=== PATIENT | female | born 1975 | race Caucasian/White ===

== ENCOUNTER → 2017-12-26 08:16 | Outpatient (CLI) | payer OTHER, SELFPAY ==
[2017-12-26 09:35] LABS: AST(SGOT) 12 U/L (15-37); Alanine Aminotransfer ALT/SGPT 18 U/L (13-56); Anion Gap 9 (5-15); BUN 11 mg/dL (7-18); BUN/Creat Ratio 19.1 RATIO (10-20); Calcium,Total 8.6 mg/dL (8.5-10.1); Chloride 101 mmol/L (98-107); Cholesterol 134 mg/dL (200); Creatinine, Serum 0.58 mg/dL (0.55-1.02); EST Glomerular Filtration Rate 123 mL/min (>60); Est Glom Filt Rate - Afr Amer 149 mL/min (>60); Glucose 149 mg/dL (74-106); High Density Lipoprotein 38 mg/dL; Potassium 3.4 mmol/L (3.5-5.1); Sodium Level 140 mmol/L (136-145); Triglycerides 257 mg/dL; Very Low Density Lipoprotein 51 mg/dL (5-40)
[2017-12-26 09:51] LABS: Hemoglobin A1c 6.7 % (4.2-6.3)
== END ==
PROVIDERS: Family Provider Family Medicine; PCP Family Medicine; Visit Provider Internal Medicine Endocrinology, Diabetes & Metabolism
DX: E11.9 Type 2 diabetes mellitus without complications (principal); E78.2 Mixed hyperlipidemia
CPT/HCPCS: 36415; 80048; 80061; 83036; 84450; 84460

== ENCOUNTER → 2018-04-12 12:58 | Outpatient (CLI) | payer OTHER, SELFPAY ==
[2018-04-12 14:28] LABS: Hemoglobin A1c 6.6 % (4.2-6.3)
[2018-04-12 14:44] LABS: AST(SGOT) 18 U/L (15-37); Alanine Aminotransfer ALT/SGPT 27 U/L (13-56); Albumin, Serum 3.9 g/dL (3.2-5.0); Alkaline Phosphatase 81 U/L (45-117); Anion Gap 14 (5-15); BUN 13 mg/dL (7-18); BUN/Creat Ratio 19.3 RATIO (10-20); Calcium,Total 9.4 mg/dL (8.5-10.1); Chloride 100 mmol/L (98-107); Creatinine, Serum 0.67 mg/dL (0.55-1.02); EST Glomerular Filtration Rate 103 mL/min (>60); Est Glom Filt Rate - Afr Amer 125 mL/min (>60); Glucose 150 mg/dL (74-106); Potassium 3.4 mmol/L (3.5-5.1); Protein, Total 7.9 g/dL (6.4-8.2); Sodium Level 140 mmol/L (136-145); Thyroid Stim Hormone (TSH) 1.99 uIU/mL (0.358-3.74)
== END ==
PROVIDERS: Family Provider Family Medicine; PCP Family Medicine; Visit Provider Internal Medicine Endocrinology, Diabetes & Metabolism
DX: E11.9 Type 2 diabetes mellitus without complications (principal); E04.8 Other specified nontoxic goiter; Z79.84 Long term (current) use of oral hypoglycemic drugs
CPT/HCPCS: 36415; 80053; 83036; 84443

== ENCOUNTER → 2018-05-08 07:49 | Outpatient (CLI) | payer OTHER, SELFPAY | PROVIDERS: Family Provider Family Medicine; PCP Family Medicine; Visit Provider Podiatrist | DX: M72.2 Plantar fascial fibromatosis (principal); M76.70 Peroneal tendinitis, unspecified leg; M76.812 Anterior tibial syndrome, left leg | CPT/HCPCS: 73718 ==

== ENCOUNTER → 2018-05-25 06:54 | Outpatient (CLI) | payer OTHER, SELFPAY ==
[2018-05-31 12:24] LABS: HPV Reflexed? NOT INDICATED
== END ==
PROVIDERS: Visit Provider Nurse Practitioner Adult Health
DX: Z01.419 Encounter for gynecological examination (general) (routine) without abnormal findings (principal)
CPT/HCPCS: 88175; G0145

== ENCOUNTER → 2018-07-03 09:18 | Outpatient (CLI) | payer OTHER, SELFPAY ==
[2018-07-03 10:22] LABS: AST(SGOT) 12 U/L (15-37); Alanine Aminotransfer ALT/SGPT 18 U/L (13-56); Anion Gap 10 (5-15); BUN 13 mg/dL (7-18); BUN/Creat Ratio 20.3 RATIO (10-20); Chloride 98 mmol/L (98-107); Creatinine, Serum 0.64 mg/dL (0.55-1.02); EST Glomerular Filtration Rate 109 mL/min (>60); Est Glom Filt Rate - Afr Amer 132 mL/min (>60); Glucose 174 mg/dL (74-106); Potassium 2.8 mmol/L (3.5-5.1); Sodium Level 139 mmol/L (136-145)
[2018-07-03 10:29] LABS: Hemoglobin A1c 6.3 % (4.2-6.3)
== END ==
PROVIDERS: Family Provider Family Medicine; PCP Family Medicine; Referring Provider Internal Medicine Endocrinology, Diabetes & Metabolism; Visit Provider Internal Medicine Endocrinology, Diabetes & Metabolism
DX: E11.9 Type 2 diabetes mellitus without complications (principal)
CPT/HCPCS: 36415; 80048; 83036; 84450; 84460

== ENCOUNTER → 2018-07-07 07:32 | Outpatient (CLI) | payer OTHER, SELFPAY ==
[2018-07-07 09:24] LABS: Anion Gap 13 (5-15); BUN 9 mg/dL (7-18); BUN/Creat Ratio 12.3 RATIO (10-20); Calcium,Total 8.8 mg/dL (8.5-10.1); Chloride 101 mmol/L (98-107); Creatinine, Serum 0.73 mg/dL (0.55-1.02); EST Glomerular Filtration Rate 93 mL/min (>60); Est Glom Filt Rate - Afr Amer 113 mL/min (>60); Glucose 193 mg/dL (74-106); Potassium 3.4 mmol/L (3.5-5.1); Sodium Level 141 mmol/L (136-145)
== END ==
PROVIDERS: Family Provider Family Medicine; PCP Family Medicine; Referring Provider Family Medicine; Visit Provider Family Medicine
DX: E87.6 Hypokalemia (principal)
CPT/HCPCS: 36415; 80048

== ENCOUNTER → 2018-07-23 16:24 | Outpatient (CLI) | payer OTHER, SELFPAY ==
[2018-07-23 17:50] LABS: Anion Gap 8 (5-15); BUN 13 mg/dL (7-18); BUN/Creat Ratio 20.4 RATIO (10-20); Calcium,Total 9.4 mg/dL (8.5-10.1); Chloride 102 mmol/L (98-107); Creatinine, Serum 0.64 mg/dL (0.55-1.02); EST Glomerular Filtration Rate 109 mL/min (>60); Est Glom Filt Rate - Afr Amer 132 mL/min (>60); Glucose 140 mg/dL (74-106); Potassium 3.7 mmol/L (3.5-5.1); Sodium Level 139 mmol/L (136-145)
== END ==
PROVIDERS: Family Provider Family Medicine; PCP Family Medicine; Referring Provider Family Medicine; Visit Provider Family Medicine
DX: E87.6 Hypokalemia (principal)
CPT/HCPCS: 36415; 80048

== ENCOUNTER 2018-09-08 20:58 | Emergency (ER) | payer OTHER, SELFPAY ==
[2018-09-08 20:59] VITALS: BP 153/87; PULSE 84; RESP 14; TEMP 35.8; O2SAT 100; BMI 40.1
[2018-09-08 21:30] LABS: Bacteria 0 SEEN /hpf (None Seen); Mucous, Urine 0 SEEN /hpf (<or=2+); Red Blood Cells-Urine 0 SEEN /hpf (0-5); White Blood Cells 0 SEEN /hpf (0-5)
[2018-09-08 21:33] LABS: Color, Urine Yellow (Yellow); Glucose, Dipstick 50 mg/dl (Normal); Ketone-Dipstick 5 mg/dl (Negative); Leukocyte Esterase-Dipstick Negative /ul (Negative); Nitrite-Dipstick Negative (Negative); Occult Blood-Urine Negative /ul (Negative); Protein-Dipstick Negative (Negative); Urine Bilirubin Dipstick Negative (Negative); Urine Clarity Sl. Cloudy (Clear); Urine Urobilinogen Normal (Normal)
[2018-09-08 21:42] LABS: Squamous Epithelial Cells - UA 0-5 SEEN /hpf (5-10)
[2018-09-08 21:43] LABS: Amorphous Sediment 3+ PHOS
[2018-09-08 21:54] LABS: Absolute Lymphocyte Count 3.08 X10^3/ul (0.83-4.51); Absolute Neutrophil Count 5.4 X10^3/uL (2.0-7.7); Basophil# 0.03 X10^3/uL; Basophil% 0.3 % (0-1); Eosinophil# 0.12 X10^3/uL; Eosinophils% 1.3 % (0-5); Hematocrit 41.9 % (37-47); Hemoglobin 14.2 g/dl (12.0-15.0); Lymphocyte # 3.08 X10^3/ul (4.0); Lymphocyte % 32.6 % (19-41); Mean Corp Hgb Conc 33.9 g/gl (32-36); Mean Corpuscular Hgb 30.5 pg (27.0-32.0); Mean Corpuscular Volume 89.9 fL (81-99); Mean Platelet Vol. 9.1 fl (6.2-12.0); Monocyte# 0.81 X10^3/uL; Monocyte% 8.6 % (0-10); Neutrophil # 5.39 X10^3/uL (2.7-7.7); Neutrophil % 56.9 % (47-70); Platelet Count 365 K/mm3 (150-450); RBC Distribution Width SD 38.6 fl (35.1-43.9); Red Blood Count 4.66 M/mm3 (4.2-5.4); White Blood Count 9.5 K/mm3 (4.4-11.0)
[2018-09-08 21:56] LABS: POSITIVE COUNT NO; POSITIVE DIFFERENTIAL NO; POSITIVE MORPHOLOGY NO
[2018-09-08 22:00] LABS: Anion Gap 10 (5-15); BUN 15 mg/dL (7-18); BUN/Creat Ratio 24.7 RATIO (10-20); Calcium,Total 9.4 mg/dL (8.5-10.1); Chloride 99 mmol/L (98-107); Creatinine, Serum 0.61 mg/dL (0.55-1.02); EST Glomerular Filtration Rate 116 mL/min (>60); Est Glom Filt Rate - Afr Amer 140 mL/min (>60); Estimated Creatinine Clearance 131.24 ml/min; Glucose 155 mg/dL (74-106); Potassium 3.4 mmol/L (3.5-5.1); Sodium Level 137 mmol/L (136-145)
[2018-09-08 22:10] LABS: Pregnancy, Serum, hCG Quali. NEGATIVE Negative (0-9 Nonpreg)
--- NOTE | 2018-09-08 22:37 | ED.DCSUM_ITS ---
- ER Visit Summary Date of Service: 09/08/18 Chief Complaint: Back and abdominal pain History of Present Illness: The patient is a 43 F history of noncemented diabetes, sleep apnea, hypertension and kidney stones. Patient states around 4 PM this afternoon Bilateral flank pain radiating to her abdomen. Denies any nausea, vomiting, diarrhea. No melena. No fever. No dysuria. No trauma. She denies any weakness in her upper or lower extremities. She denies any trauma to her back. Today she did do physical therapy Physical Examination: Well-appearing middle-age female. Vital signs are stable afebrile. She does not look septic or toxic. Currently she feels fine. She is without pain. H EENT exam unremarkable. Neck nontender. Lungs clear to auscultation bilaterally. Heart regular rhythm no murmur. Abdomen soft, nondistended, nontender. No peritoneal signs. No pulsatile mass. No hernias. No signs of obstruction. Abdomen is completely benign. Normal bowel sounds. Extremities moves all 4. Neurovascular intact. She has normal motor strength sensation in both upper and lower extremities. Back exam there is no spine or CVA tenderness to her back. No ecchymosis or oozing. No redness or warmth. Neurologically she is awake and alert with no focal motor deficits. Test Results: CBC normal white count of 9. Hemoglobin 14. Electrolytes unremarkable potassium 3.4. Normal gap normal creatinine. UA normal. No signs of blood or infection. test negative. Emergency Department Course and Treatment: Repeat exam patient is doing well at 2230. Abdomen is completely benign. She states she feels fine. Treatment Plan: Discharged home. Follow-up with your doctor if recurrent pain or return to ER feeling worse. Disposition: Discharge Impression: Acute back pain and flank pain that resolved of uncertain etiology This note was generated with [employer] dictation software. It may contain incorrect words, spelling, and punctuation that were not noted in review of the chart prior to signing ED Disposition - Plan for ED Patient: Chief Complaint: Flank Pain Referrals: Tico Walker MD [Primary Care Provider] -
--- NOTE | 2018-09-08 22:37 | ED.DEP ---
ED Disposition - Plan for ED Patient: Disposition: Home or Assisted Living Chief Complaint: Flank Pain Instructions: ED Flank Pain Uncertain Cause Referrals: Tico Walkre MD [Primary Care Provider] - As Needed Additional Instructions: Tylenol and/or Motrin for pain. Follow-up with your doctor. Return if feeling a lot worse.
[2018-09-08 22:48] VITALS: BP 113/72; PULSE 74; RESP 17; O2SAT 98
== END 2018-09-08 23:00 | disposition home or self-care (01) ==
PROVIDERS: Emergency Provider Emergency Medicine; Family Provider Family Medicine; PCP Family Medicine
DX: R10.9 Unspecified abdominal pain (principal); M54.9 Dorsalgia, unspecified; E11.9 Type 2 diabetes mellitus without complications; I10 Essential (primary) hypertension; G47.30 Sleep apnea, unspecified; F32.9 Major depressive disorder, single episode, unspecified; Z79.84 Long term (current) use of oral hypoglycemic drugs; Z79.899 Other long term (current) drug therapy; Z87.442 Personal history of urinary calculi
CPT/HCPCS: 80048; 81001; 84703; 85025; 99283; A4216

== ENCOUNTER → 2018-09-15 15:58 | Outpatient (CLI) | payer OTHER, SELFPAY ==
[2018-09-08 20:59] VITALS: BMI 40.1
== END ==
PROVIDERS: Family Provider Family Medicine; PCP Family Medicine; Referring Provider Otolaryngology Otolaryngology/Facial Plastic Surgery; Visit Provider Otolaryngology Otolaryngology/Facial Plastic Surgery
DX: J32.9 Chronic sinusitis, unspecified (principal); J02.9 Acute pharyngitis, unspecified; R05 Cough
CPT/HCPCS: 87070

== ENCOUNTER 2018-09-20 16:00 | Outpatient (RCR) | payer OTHER, SELFPAY ==
--- NOTE | 2018-07-26 16:28 | HP.PTEVAL_ITS ---
Patient's Visit Information AYDEN STALLWORTH is a 43 year old F referred to Physical Therapy by Zeyad Retana with a diagnosis of PLANTAR FASCITIS, PES PLANUS, AND LIPOMA L FOOT. Date of Evaluation: 07/26/18 Physical Therapist: Mabel aWllace - Visit Plan Frequency: 2-3x /Week Duration: 4-6 Weeks Plan: LEFT LE STRENGTHENING, PROPRIOCEPTION AND NEUROMUSCULAR RE-EDUCATION TRAINING. 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 Disability: NO. Present symptoms: PAIN IN HEEL OF LEFT FOOT AND WHERE LIPOMA IS. ALSO SOME PAIN IN THE TOP OF THE FOOT AND ALONG THE OUTSIDE OF THE FOOT TO THE LITTLE TOE. MAILY HEEL AND ARCH OF FOOT. NO NUMBESS OR TINGLING FOR ABOUT TWO WEEKS BUT DID HAVE IT ON THE BOTTOM OF HER FOOT. Present since: ABOUT 3RD WEEK OF FEBRUARY 2018. CURRENTLY IMPROVING. Pain Scale: WORST 8/10, LEAST 0/10. Currently: 0/10. Commenced as a result [facility] THE FIRST WEEK OF FEBRUARY. THE PAIN STARTED ABOUT THE 3RD WEEK IN FEBRUARY. Symptoms at onset: MY WHOLE FOOT HURT LIKE HELL. FELT A BIG KNOT IN BOTTOM OF LEFT FOOT. Worse: BEING ON IT TOO LONG, COLD, STRETCHING IT WRONG, KEEPING IT IN ONE POSITION TOO LONG LIKE DRIVING, RUNNING AFTER A CHILD, WALKING ON UNEVEN GROUND, TROUBLE WALKING FIRST THING IN THE MORNING, TRYING TO WALK AFTER PROLONGED SITTING. G OING UP AND DOWN STEPS ESPECIALLY CARRYING THINGS LIKE LAUNDRY. Better: ELEVATION, WARMTH, BOOT (HAS NOT WORN IT FOR TWO TO THREE WEEKS BECAUSE TRYING TO WEAN OUT OF BOOT INTO DIABETIC SHOES WITH NEW ORTHOTICS PER DR. RETANA). Disturbed sleep: NO. Previous history/Previous treatment: DIABETIC SHOES, ORTHOTICS, ANKLE BRACE, BOOT SINCE MARCH 2018, INJECTION, SOFT CAST. HOME EX'S GIVEN BY DR. RETANA, FINN STALLWORTH UNDER FOOT. LEFT FOOT INJECTION FOR PLANTAR FASCITIS IN THIS FOOT A FEW YEARS AGO BUT DID NOT HELP. ALSO HAD PHYSICAL THERAPY, HEP, BOOT AND BRACE A FEW YEARS AGO AND IT TOOK ABOUT 3-4 MONTHS TO GO AWAY AND IT WAS GONE UNTIL NOW. NO SURGERY ON THIS FOOT. Accidents: NO. Unexplained weight loss: NO. Imaging: RECENT X-RAYS AND MRI OF LEFT FOOT SHOWING FLAT FOOT, ARTHRITIS TOP OF FOOT AND LIPOMA. NO FRACTURES. NO BONE SPURS. (PER PATIENT REPORT). PMH: DEPRESSION, HTN, SLEEP APNEA, NIDDM. Recent major surgery: 2011 CERVICAL FUSION, PECTUS EXCAVATUM - RECONSTRUCTION 80'S. PLOF (Prior Level of Function): PRIOR TO MARCH 2018 ACTIVITIES WERE UNLIMITED. OTHER: PT WAS ORDERED ABOUT A MONTH AGO BUT PATIENT REPORTS SHE HAS BEEN TOO BUSY TO COME UNTIL NOW AND SHE SEES DR. RETANA AGAIN Thursday07/29/18. PATIENT GOT LEFT FOOT BRACE AND IS WEARING IT IN WEIGHTBEARING ALL THE TIME NOW EXCEPT MAYBE AT HOME. - Objective THIS PATIENT AMBULATES INDEP'LY INTO PT WITHOUT ANY ASSISTIVE DEVICES WEARING A LEFT ANKLE BRACE, DIABETIC SHOES AND ORTHOTICS. SHE HAS A MILD LIMP ON THE LLE AND THIS APPEARS TO BE PARTIALLY DUE TO THE ANKLE BRACE. SHE HAS PES PLANTIS. GAIT IMPROVES IN THE TREATMENT ROOM WITHOUT THE BRACE ON. INDEP TRANSFER SIT TO STAND WITHOUT UE ASSIST. PAULINO LE LIGHT TOUCH SENSATION INTACT AND SYMMETRICAL. RIGHT LE ROM AND STRENGTH WFL. LEFT HIP AND KNEE ROM WFL. LEFT ANKLE ROM IS ALSO WFL BUT MILD WEAKNESS OF LEFT ANKLE ALL PLANES GRADED 4/5. PATIENT REPORTS MILD LEFT LATERAL ANKLE PAIN WITH EVERSION STRENGTH TESTING. SHE DOES NOT HAVE ANY LEFT FOOT OR ANKLE ACUTE TENDERNESS WITH PALPATION BUT SHE REPORTS SHE DOES GET TENDER WHERE THE LIPOMA IS AT TIMES. REVIEWED CURRENT HEP. PATIENT IS VERY FAMILAR WITH SELF MASSAGE OF FOOT WITH TENNIS BALL AND CALF STRETCHING AGAINST WALL AND ON STEP BUT ALTHOUGH SHE HAS DONE SOME ANKLE STRENGTHENING IN THE PAST SHE DOES NOT REMEMBER WHAT SPECIFIC EX'S TO DO AND HAS NOT BEEN DOING ANY STRENGTHENING. PATIENT HAS DECREASED LEFT FOOT AND ANKLE PROPRIOCEPTION AND NEUROMUSCULATURE CONTROL. - Goals Goal 1:: DECREASE C/O LEFT FOOT PAIN Goal Time Frame: 4-6 Weeks Goal 2:: IMPROVE STANDING, WALKING, STAIR CLIMBING WHILE CARRYING THINGS LIKE A LAUNDRY BASKET, RUNNING AND INITIATING GAIT AFTER PROLONGED NON WEIGHT BEARING FUNCTION Goal Time Frame: 4-6 Weeks Goal 3:: INDEP HEP FOR CONTINUED IMPROVEMENT ONCE FORMAL PHYSICAL THERAPY CONCLU GISELLE. - Rehabilitation Potential Rehabilitation Potential: Good - Anticipated Interventions Patient/Client Instruction: Educate patient on: Condition, Plan of Care, Risk Factors, Benefits of Fitness Program For the Purpose of:: To improve self management Therapeutic Exercise to Include: Strength training, Balance training, Coordination, Agility training, Flexibilty training, Gait and locomotor training, Neuromotor development For the Purpose of:: To decrease pain, To increase ROM, To improve muscle performance and motor function, To increase tolerance to activity/condition/position, To improve ability of physical actions for home/community/work/leisure, To improve gait and locomotor functions Thermo therapy (hot pack): Yes For the Purpose of:: To decrease pain, To improve nutrient delivery to tissue Thank you for the opportunity to evaluate your patient. For Medicare and Medicare HMO plans, please review the plan of care and approve it. It will need to be FAXED BACK to us at [phone] for Medicare purposes. Please let me know if there are questions or concerns regarding this plan of care. Physician Signature: Date:
--- NOTE | 2018-08-27 16:46 | HP.PTREVAL_ITS ---
Zeyad Ray, It has been my pleasure to treat AYDEN STALLWORTH over the last 8 visits for PLANTAR FASCITIS, PES PLANUS, AND LIPOMA L FOOT. Please see the progress note below for an update on the physical therapy plan of care! Subjective: PATIENT REPORTS HER FOOT FLARED UP ABOUT Aug AND SHE THINKS SHE MIGHT HAVE PUSHED A LITTLE TOO HARD. SHE THINKS HER PAIN INCREASED WHEN SHE STARTED DOING MORE WITHOUT THE BRACE. SHE REPORTS THAT WHEN DR. RAY TOLD HER SHE COULD START EXERCISING OUT OF THE BRACE IT MUST HAVE BEEN TOO MUCH. WHEN THE PAIN INCREASED SHE CALLED DR. RAY AND HE TOLD HER TO GO BACK IN THE BOOT AND DO MORE ROM AND BAND EX'S THAN OTHER. SHE REPORTS SHE IS DOING A LOT MORE WALKING AND STANDING AT WORK RIGHT NOW TOO BECAUSE OF [employer] AND SHE FEELS THIS HAS CONTRIBUTED TO HER FOOT FLARING UP TOO. SHE CAN USUALLY SIT A LOT MORE AT WORK THAN SHE IS NOW. PATIENT REPORTS SHE DID FINE WITH PT THURSDAY AND HAS BEEN DOING THE EX'S AT HOME WITHOUT INCREASED PAIN. SHE REPORTS THAT HER FOOT IS GETTING BETTER AGAIN NOW. HER PAIN IS IN HER ARCH AND HEEL GOING UP THE BACK OF HER LEG. SHE REPORTS SHE ISN'T HAVING PAIN IN ANY NEW PLACES. SHE REPORTS REALLY AN EXCESSIVE AMOUT OF WALKING INCREASE AT WORK RIGHT NOW. Objective/Function: PATIENT WAS MAKING GOOD PROGRESS WITH PT PRIOR TO FLARE-UP. NOTE DECREASED PAIN TODAY FROM THURSDAY BY 50% AND THIS APPOINTMENT IS AT THE END OF HER WORK DAY. THIS PATIENT AMBULATES INDEP'LY INTO PT WITHOUT ANY ASSISTIVE DEVICES WEARING A LEFT BOOT, SHE HAS A MILD LIMP ON THE LLE AND THIS APPEARS TO BE PARTIALLY DUE TO BOOT. WITHOUT BOOT. WITH REGULAR SHOE AND ORTHOTIC (NO BRACE) SHE WALKS SHORT DISTANCES IN THE CLINIC WITH DECREASED CADANCE BUT GOOD HEEL STRIKE, FOOT FLAT AND TOE OFF PHASES OF GAIT (AND GOOD STANCE TIME). INDEP TRANSFER SIT TO STAND WITHOUT UE ASSIST. LLE LIGHT TOUCH SENSATION INTACT. LEFT HIP AND KNEE ROM WFL. LEFT ANKLE ROM IS ALSO WFL BUT MILD WEAKNESS OF LEFT ANKLE ALL PLANES GRADED 4/5. PATIENT REPORTS MILD PAIN IN THE ARCH OF HER FOOT WITH DORSIFLEXION ROM TESTING. PATIENT HAS MILD TENDERNESS TODAY WITH PALPATION OF HER HEEL, ACHILLES AND CALF REGIONS BUT NOTHING LOCALIZED. DECREASED LEFT FOOT AND ANKLE PROPRIOCEPTION AND NEUROMUSCULATURE CONTROL. Plan Plan: RECOMMEND CONTINUED PT PER ORIG POC CHANGING TO AQUATIC THERAPY TO DECREASE INTENSITY OF EX AND TAKE ADVANTAGE OF HYDROSTATIC PRESSURE AND BOUNCY. PATIENT IS AGREEABLE AND WILL FOLLOW UP WITH DR. RAY IN SEPTEMBER PLANNED. Goals Goal 1:: DECREASE C/O LEFT FOOT PAIN Goal Time Frame: 4-6 Weeks Goal Progress: Not Progressing Goal 2:: IMPROVE STANDING, WALKING, STAIR CLIMBING WHILE CARRYING THINGS LIKE A LAUNDRY BASKET, RUNNING AND INITIATING GAIT AFTER PROLONGED NON WEIGHT BEARING FUNCTION Goal Time Frame: 4-6 Weeks Goal Progress: Not Progressing Goal 3:: INDEP HEP FOR CONTINUED IMPROVEMENT ONCE FORMAL PHYSICAL THERAPY CONCLUDES. Goal Time Frame: 4-6 Weeks Goal Progress: Progressing Anticipated Interventions Patient/Client Instruction: Educate patient on: Condition, Plan of Care, Risk Factors, Benefits of Fitness Program For the Purpose of:: To improve self management Therapeutic Exercise to Include: Strength training, Balance training, Coordination, Agility training, Flexibilty training, Gait and locomotor training, Neuromotor development For the Purpose of:: To decrease pain, To increase ROM, To improve muscle performance and motor function, To increase tolerance to activity/condition/position, To improve ability of physical actions for home/community/work/leisure, To improve gait and locomotor functions Thermo therapy (hot pack): Yes For the Purpose of:: To decrease pain, To improve nutrient delivery to tissue Please do not hesitate to contact me at [phone] by phone or if you have questions or concerns regarding this new plan of care! Sincerely, Mabel Wallace, PT, Cert MDT
--- NOTE | 2018-09-20 16:31 | HP.PTDCSUM_ITS ---
HP - PT D/C Summary It has been my pleasure to treat AYDEN STALLWORTH under orders from Zeyad Ray DPM, for the diagnosis of PLANTAR FASCITIS, PES PLANUS, AND LIPOMA L FOOT for a total of 14 visit(s). Discharge Date: Please see the following information for a summary of their discharge status. - Subjective Subjective: PATIENT REPORTS SHE NO LONGER HAS CONTINUOUS DISCOMFORT IN HER FOOT. SHE WAS ABLE TO DO A LOT OF WALKING (2 HOURS) AT [facility] AND DID FINE. STILL DOES GET SOME PAIN THOUGH. I AM QUITE IMPRESSED. BACK TO SCHOOL TODAY AND ON FEET A LOT. PATIENT REPORTS SHE WOULD LIKE TO TRY TO CONTINUE WITH INDEP HOME EX'S AT THIS TIME. FOLLOWED UP WITH DR. RAY AND NO FURTHER FOLLOW UP FOR THIS NEEDED AT THIS TIME. DOES HAVE PLANTAR WARTS SHE WILL BE SEEN FOR THOUGH. - Pain L heel Pain Intensity (Out of 10): 1 - Overall Improvement % Improvement: 90 - Objective Objective/Function: ALL GOALS MET. PAULINO LE ROM AND STRENGTH WFL. EVEN ABLE TO DO SINGLE LEG HEEL RAISING WITHOUT PAIN. PATIENT PLEASED WITH PROGRESS. - Goals Goal 1:: DECREASE C/O LEFT FOOT PAIN Goal Progress: Not Progressing Goal 2:: IMPROVE STANDING, WALKING, STAIR CLIMBING WHILE CARRYING THINGS LIKE A LAUNDRY BASKET, RUNNING AND INITIATING GAIT AFTER PROLONGED NON WEIGHT BEARING FUNCTION Goal Progress: Not Progressing Goal 3:: INDEP HEP FOR CONTINUED IMPROVEMENT ONCE FORMAL PHYSICAL THERAPY CONCLUDES. Goal Progress: Progressing - Plan Plan: *COVER PLANTAR WARTS NEED BE* Progress to greater WBing. - D/C Information If there are questions or concerns regarding this patient's physical therapy, please feel free to call me at [phone]. Thank you for the referral of this patient. Sincerely, Mabel Wallace, PT, Cert MDT
== END 2018-09-20 19:00 | disposition home or self-care (01) ==
LOC: PT 16:00
PROVIDERS: Family Provider Family Medicine; PCP Family Medicine; Referring Provider Podiatrist; Visit Provider Podiatrist
DX: M72.2 Plantar fascial fibromatosis (principal); M21.42 Flat foot [pes planus] (acquired), left foot; D17.24 Benign lipomatous neoplasm of skin and subcutaneous tissue of left leg
CPT/HCPCS: 97110; 97113; 97162; 97530

== ENCOUNTER → 2018-10-19 14:33 | Outpatient (CLI) | payer OTHER, SELFPAY ==
[2018-10-18 16:39] VITALS: BMI 40.1
== END ==
PROVIDERS: Family Provider Family Medicine; PCP Family Medicine; Referring Provider Physician Assistant; Visit Provider Physician Assistant
DX: L03.114 Cellulitis of left upper limb (principal)
CPT/HCPCS: 87070; 87077; 87186; 87205

== ENCOUNTER → 2018-10-23 09:46 | Outpatient (CLI) | payer OTHER, SELFPAY ==
[2018-10-18 16:39] VITALS: BMI 40.1
--- NOTE | 2018-10-23 09:57 | BI_ITS ---
MAMMOGRAPHY - BILATERAL SCREENING REASON FOR EXAM: Female, 43 years old. Routine annual screening examination. PERTINENT HISTORY: Non-contributory. TECHNIQUE: Digital bilateral breast chacorta (3D mammographic acquisition) in the CC and MLO projections. 2-D mediolateral oblique (MLO) and craniocaudad (CC) views of both breasts were obtained. CAD: Full Field Digital Mammography with Computer Added Detection was performed. COMPARISON: None. Baseline examination. FINDINGS: Breast Composition: There are scattered areas of fibroglandular density. There is a 1.9 cm x 2.1 cm lobulated well-defined nodule in the medial superior retroareolar region of the left breast. Correlation with ultrasound is recommended. No cluster of microcalcification is seen. No other significant abnormalities are identified. BI/SCREENING MAMM (CAD), BILAT IMPRESSION: 1.9 cm x 2.1 cm lobulated well-defined nodule in the superior medial retroareolar region of the breast. Correlation with ultrasound is recommended. ASSESSMENT CATEGORY: BIRADS Category 0: Incomplete. Need additional imaging evaluation. A letter regarding these results will be sent to the patient by the facility within 30 days. Approximately 10% of breast cancers are not detected by mammography. A normal mammogram should not delay biopsy of a clinically suspicious abnormality. [id number] Electronically Signed: Adán East MD at 9:33 EST , Service support ,
== END ==
PROVIDERS: Family Provider Family Medicine; PCP Family Medicine; Referring Provider Nurse Practitioner Adult Health; Visit Provider Nurse Practitioner Adult Health
DX: Z12.31 Encounter for screening mammogram for malignant neoplasm of breast (principal)
CPT/HCPCS: 77063; 77067

== ENCOUNTER → 2018-10-29 10:54 | Outpatient (CLI) | payer OTHER, SELFPAY ==
[2018-10-18 16:39] VITALS: BMI 40.1
--- NOTE | 2018-10-29 10:57 | US_ITS ---
STUDY: ULTRASOUND BREAST - LEFT REASON FOR EXAM: Female, 43 years old. Abnormal screening mammogram. TECHNIQUE: Axial and longitudinal images of the LEFT breast were performed with a high resolution ultrasound transducer. COMPARISON: Comparison is made with prior mammogram dated October 23, 2018. FINDINGS: LEFT Breast: The mammographic abnormality corresponds to a 2.1 cm x 1.8 cm x 0.7 cm hypoechoic lobulated nodule at 11:00 position of the breast at 2 cm from nipple. A biopsy is recommended. US/Breast Limited Unilateral IMPRESSION: The mammographic amount and corresponds to a 2.1 cm x 1.8 cm x 0.7 cm hypoechoic solid lobulated nodule at the 11:00 position of the breast at 2 cm from nipple. A biopsy is recommended. ASSESSMENT CATEGORY: BIRADS Category 4: Suspicious - Biopsy Should Be Considered. A letter regarding these results will be sent to the patient by the facility within 30 days. Electronically Signed: Adán East MD at 14:40 EST , Service support ,
== END ==
PROVIDERS: Family Provider Family Medicine; PCP Family Medicine; Referring Provider Nurse Practitioner Adult Health; Visit Provider Nurse Practitioner Adult Health
DX: R92.8 Other abnormal and inconclusive findings on diagnostic imaging of breast (principal)
CPT/HCPCS: 76642

== ENCOUNTER → 2018-11-05 12:32 | Outpatient (CLI) | payer OTHER, SELFPAY ==
[2018-10-18 16:39] VITALS: BMI 40.1
--- NOTE | 2018-11-05 12:38 | ART_ITS ---
Reason For Study: raynauds, PVD Left Segmental Pressures Left brachial= 141mmHg. Left posterior tibial artery = 164mmHg. Left dorsalis pedis artery = 150mmHg. Left digit = 103 mmHg. The left dorsalis pedis waveforms are triphasic. The left posterior tibial artery waveforms are triphasic. Right Segmental Pressures Right brachial= 135mmHg. Right posterior tibial artery = 152mmHg. Right dorsalis pedis artery = 153mmHg. Right digit = 82 mmHg. The right dorsalis pedis waveforms are triphasic. The right posterior tibial artery waveforms are triphasic. Indices The right ankle brachial index by the dorsalis pedis is 1.09. The right ankle brachial index by the posterior tibial artery is 1.08. The right digital-brachial index is .58. The left ankle brachial index by the posterior tibial artery is 1.16. The left ankle brachial index by the dorsalis pedis is 1.06. The left digital-brachial index is .73. Interpretation Summary Triphasic Doppler waveforms are noted at ankle level bilaterally. Pulse-volume waveform amplitudes appear satisfactory at all levels bilaterally, but for the right digital level, which is diminished. Resting ankle-brachial indices are normal bilaterally. The right digital-brachial index is mildly diminished. The left digital-brachial index is normal. These findings suggest relatively normal arterial perfusion to ankle level bilaterally. There appears to be mild impairment of arterial flow at digital level on the right, affecting the 2nd and 3rd digits primarily. Arterial flow appears normal at digital level on the left. Ordering Physician: Zeyad Retana Performed By: BLESSING SUE Patti
--- NOTE | 2018-11-05 15:30 | BRBX_PTH ---
PATIENT: AYDEN STALLWORTH LOC: [facility] U#:[id number] AGE/SX: 50/F ROOM: RE11/05/[address]: Dr. Zeyad Retana DPM : [id number] BED: DIS: SPEC #: [id number] RECD: 11/05/18 16:36 STATUS: SONIA MOUSTAPHA #: [id number] ANATOLIY: 11/05/18 15:[address]: Adamaris Ray DEPT: SURGICAL PATHOLOGY RECD BY: Roldan Lyons ENTERED: 11/08/18 14:45 SP TYPE: BREAST BX OTHR DR: Dr. Zeyad Retana, SUSI Walker MD Tissues: A - Left breast, NOS B - Left breast, NOS Procedures: Surgery Specimen Level IV HEADER OPERATION: Left breast biopsy PRE-OP DIAGNOSIS: Left breast mass TISSUE SUBMITTED: A - Left breast mass 11 o'clock, 2 cm from nipple, B - Left breast lipoma 10 o'clock, 5 cm from nipple ISCHEMIC TIME: 10 seconds FIXATION TIME: 76 hours MICROSCOPIC DIAGNOSIS A. Left breast mass, 11 o'clock, 2 cm from the nipple, core biopsy: Hyalinized fibroadenoma with focal microcalcifications. Negative for atypia or malignancy. B. Left breast lipoma, 10 o'clock, 5 cm from the nipple, core biopsy: Consistent with angiolipoma. Negative for atypia or malignancy. Breast tissue is not identified in the submitted specimen. NATHALIA:joseluis 11/09/18 COMMENT Correlation with clinical, radiologic findings and appropriate follow up are necessary. MICROSCOPIC DESCRIPTION Slides are reviewed. GROSS DESCRIPTION A - Received in fixative is one container labeled with the patient's name and designated left breast nodule 11 o'clock, 2 cm from nipple. The specimen consists of multiple elongated fragments of gaona-yellow fibroadipose tissue that in aggregate measure 1 x 0.5 x 0.1 cm. The entire specimen is submitted in one cassette. B - Received in fixative is one container labeled with the patient's name and designated left breast lipoma. The specimen consists of multiple elongated fragments of gaona-yellow fibroadipose tissue that in aggregate measure 0.5 x 0.5 x 0.1 cm. The entire specimen is submitted in one cassette. / NATHALIA:joseluis 11/08/18 TC:1 CPT: 98426 x2
== END ==
PROVIDERS: Family Provider Family Medicine; PCP Family Medicine; Referring Provider Podiatrist; Visit Provider Podiatrist
DX: I73.00 Raynaud's syndrome without gangrene (principal); I73.9 Peripheral vascular disease, unspecified; N63.20 Unspecified lump in the left breast, unspecified quadrant
CPT/HCPCS: 88305; 93923

== ENCOUNTER → 2018-11-19 15:49 | Outpatient (CLI) | payer OTHER, SELFPAY ==
[2018-11-05 16:25] VITALS: BMI 40.1
[2018-11-19 17:36] LABS: AST(SGOT) 13 U/L (15-37); Alanine Aminotransfer ALT/SGPT 20 U/L (13-56); Anion Gap 13 (5-15); BUN 13 mg/dL (7-18); BUN/Creat Ratio 18.5 RATIO (10-20); Calcium,Total 9.7 mg/dL (8.5-10.1); Chloride 100 mmol/L (98-107); EST Glomerular Filtration Rate 97 mL/min (>60); Est Glom Filt Rate - Afr Amer 118 mL/min (>60); Glucose 152 mg/dL (74-106); Potassium 3.3 mmol/L (3.5-5.1); Sodium Level 141 mmol/L (136-145)
[2018-11-19 17:46] LABS: Hemoglobin A1c 6.7 % (4.2-6.3)
[2018-11-19 18:01] LABS: Microalbumin,Random Urine 13.3 mg/L (NO RANGE EST.); Microalbumin:Creatinine Ratio 17.6 mg/g CRE (<30 mg/g CRE)
== END ==
PROVIDERS: Family Provider Family Medicine; PCP Family Medicine; Referring Provider Internal Medicine Endocrinology, Diabetes & Metabolism; Visit Provider Internal Medicine Endocrinology, Diabetes & Metabolism
DX: E11.9 Type 2 diabetes mellitus without complications (principal)
CPT/HCPCS: 80048; 82043; 82570; 83036; 84450; 84460

== ENCOUNTER → 2019-04-01 08:59 | Outpatient (CLI) | payer OTHER, SELFPAY ==
[2018-11-05 16:25] VITALS: BMI 40.1
[2019-04-01 10:21] LABS: Hemoglobin A1c 6.7 % (4.2-6.3)
[2019-04-01 10:27] LABS: AST(SGOT) 15 U/L (15-37); Alanine Aminotransfer ALT/SGPT 24 U/L (13-56); Anion Gap 14 (5-15); BUN 14 mg/dL (7-18); BUN/Creat Ratio 19.4 RATIO (10-20); Calcium,Total 8.9 mg/dL (8.5-10.1); Chloride 98 mmol/L (98-107); Cholesterol 152 mg/dL (200); Creatinine, Serum 0.72 mg/dL (0.55-1.02); EST Glomerular Filtration Rate 94 mL/min (>60); Est Glom Filt Rate - Afr Amer 114 mL/min (>60); Glucose 164 mg/dL (74-106); High Density Lipoprotein 42 mg/dL; Potassium 3.6 mmol/L (3.5-5.1); Sodium Level 137 mmol/L (136-145); Triglycerides 265 mg/dL; Very Low Density Lipoprotein 53 mg/dL (5-40)
== END ==
PROVIDERS: Family Provider Family Medicine; PCP Family Medicine; Referring Provider Internal Medicine Endocrinology, Diabetes & Metabolism; Visit Provider Internal Medicine Endocrinology, Diabetes & Metabolism
DX: E11.9 Type 2 diabetes mellitus without complications (principal); I10 Essential (primary) hypertension; E78.2 Mixed hyperlipidemia
CPT/HCPCS: 36415; 80048; 80061; 83036; 84450; 84460

== ENCOUNTER 2019-05-15 18:11 | Emergency (ER) | payer OTHER, SELFPAY ==
[2018-11-05 16:25] VITALS: BMI 40.1
[2019-05-15] VITALS (8 sets, daily range): BP systolic 123–149; BP diastolic 56–79; PULSE 103–116; RESP 15–20; TEMP 37.8–39.5; O2SAT 96–99; BMI 38.6
--- NOTE | 2019-05-15 19:07 | EKG12_ITS ---
Test Reason : WEAKNESS Blood Pressure : / mmHG Vent. Rate : 106 BPM Atrial Rate : 106 BPM P-R Int : 130 ms QRS Dur : 086 ms QT Int : 300 ms P-R-T Axes : 036 061 -07 degrees QTc Int : 398 ms Sinus tachycardia Nonspecific T wave abnormality Abnormal ECG Confirmed by SABRA PACHECO, EYAL ([id number]), photographic editor DAVINA KILGORE ([id number]) on 05/17/2019 10:36:33 AM Referred By: KAVITA Confirmed By:HOME MONTAÑO MD
[2019-05-15 19:18] LABS: Absolute Lymphocyte Count 0.62 X10^3/uL (0.83-4.51); Absolute Neutrophil Count 8.8 X10^3/uL (2.0-7.7); Basophil# 0.01 X10^3/uL; Basophil% 0.1 % (0-1); Hematocrit 38.2 % (37-47); Hemoglobin 13.1 g/dL (12.0-15.0); Lymphocyte # 0.62 X10^3/ul (4.0); Lymphocyte % 6.3 % (19-41); Mean Corp Hgb Conc 34.3 g/dL (32-36); Mean Corpuscular Hgb 30.7 pg (27.0-32.0); Mean Corpuscular Volume 89.5 fL (81-99); Mean Platelet Vol. 9.3 fl (6.2-12.0); Monocyte# 0.36 X10^3/uL; Monocyte% 3.6 % (0-10); NRBC Flagged by Analyzer 0 % (0-5); Neutrophil # 8.84 X10^3/uL (2.7-7.7); Neutrophil % 89.5 % (47-70); Platelet Count 255 K/mm3 (150-450); RBC Distribution Width CV 11.6 % (11.6-14.6); RBC Distribution Width SD 37.2 fl (35.1-43.9); Red Blood Count 4.27 M/mm3 (4.2-5.4); White Blood Count 9.9 K/mm3 (4.4-11.0)
[2019-05-15 19:27] LABS: International Normalized Ratio 1.2; Partial Thromboplast Time 28.2 Seconds (24.1-36.2); Prothrombin Time (Protime)PT. 14.5 SECONDS (11.7-14.9)
[2019-05-15] MEDS: Acetaminophen 500 MG Tablet 1000 MG PO (19:29)
[2019-05-15] MEDS: 0.9% Normal Saline 1,000 ML 999 ML IV (19:29)
[2019-05-15 19:57] LABS: Bacteria 0 SEEN /hpf (None Seen); Mucous, Urine 0 SEEN /hpf (<or=2+); Red Blood Cells-Urine 0 SEEN /hpf (0-5); White Blood Cells 0 SEEN /hpf (0-5)
--- NOTE | 2019-05-15 19:57 | ED.DCSUM_ITS ---
History of Present Illness Chief Complaint: Weakness Detail of Chief Complaint: Body aches, fever, weakness Informant: Patient Onset: Today Current Severity: Moderate Maximum Severity: Moderate Narrative: Patient presents with weakness and fever. She developed UTI symptoms 7 days ago. She had appoint with her PCP 3 days later. She was started on Keflex 500 mg twice daily. She states her urinary symptoms have improved. This morning at 4 AM she woke up with chills and noted a temperature of 102. She took NyQuil at that time. Tonight her fever returned. She complains of body aches and feeling fatigued. She denies flank pain. Past Medical History - Allergies and Home Meds Allergies/Adverse Reactions: Allergies azithromycin [From Zithromax] Allergy (Verified 05/15/19 18:11) Hives diazepam [From Valium] Adverse Reaction (Verified 05/15/19 18:11) Other lisinopril Adverse Reaction (Verified 05/15/19 18:11) Other prednisone Adverse Reaction (Verified 05/15/19 18:11) Other Primary Care Physician: Tico Walker MD [Primary Care Provider] - Prior records reviewed: Yes Past Medical History: - - Reviewed Surgical History: - - Neck fusion Smoking Status: Never smoker Review of Systems General: Reports: Chills, Fever Eyes: Denies: Visual changes - bilaterally ENT: Denies: Bilateral ear pain Cardiovascular: Denies: Chest pain Respiratory: Denies: Dyspnea Gastrointestinal: Denies: Abdominal pain, Nausea, Vomiting, Diarrhea Genitourinary: Denies: Dysuria Musculoskeletal: Reports: Myalgias Skin: Denies: Rash Neurological: Reports: Weakness. Denies: Headache Hematologic: Denies: Easy bruising Allergy: Denies: Uticaria Physical Exam Vital Signs/Narrative: Vital Signs Temp Pulse Resp BP Pulse Ox 05/15/19 19:56 99 05/15/19 19:32 103.1 F H 05/15/19 18:14 102.8 F H 116 H 19 H 149/79 H 99 05/15/19 18:11 102.8 F H 116 H 19 H 149/79 H 98 Inital Vital Signs reviewed: Yes General: Well nourished, Well developed ENT: Moist mucous membranes Neck: Supple Cardiovascular: Tachycardia Respiratory: No distress, CTA bilaterally Abdomen: Soft, Nontender Back: Nontender. Negative for: CVA tenderness Skin: Normal color, No rash Neurological: Alert, Oriented x3, Normal Strength, Normal Sensation Psychological: Normal affect Diagnostic/Tx/Re-eval Laboratory Results 05/15/19 05/15/19 05/15/19 18:50 18:50 18:50 WBC 9.9 RBC 4.27 Hgb 13.1 Hct 38.2 MCV 89.5 MCH 30.7 MCHC 34.3 RDW Std Deviation 37.2 RDW Coeff of Renee 11.6 Plt Count 255 MPV 9.3 Immature Gran % (Auto) 0.500 Neut % (Auto) 89.5 H Lymph % (Auto) 6.3 L [place] % (Auto) 3.6 Eos % (Auto) 0.0 Baso % (Auto) 0.1 Absolute Neuts (auto) 8.8 H Absolute Lymphs (auto) 0.62 L Nucleated RBC % 0 PT 14.5 INR 1.2 APTT 28.2 Sodium 137 Potassium 2.7 L* Chloride 99 Carbon Dioxide 29.0 Anion Gap 9 BUN 6 L Creatinine 0.73 Estim Creat Clear Calc 113.35 Est GFR (MDRD) Af Amer 113 Est GFR (MDRD) Non-Af 93 BUN/Creatinine Ratio 8.2 L Glucose 149 H Lactic Acid Calcium 8.8 Total Bilirubin 0.70 AST 23 ALT 29 Alkaline Phosphatase 52 Total Protein 7.3 Albumin 3.2 Globulin 4.1 Albumin/Globulin Ratio 0.8 L Urine Color Urine Clarity Urine pH Ur Specific [place] Urine Protein Urine Glucose (UA) Urine Ketones Urine Occult Blood Urine Nitrite Urine Bilirubin Urine Urobilinogen Ur Leukocyte Esterase Urine RBC Urine WBC Ur Squamous Epith Cells Urine Bacteria Urine Mucus 05/15/19 05/15/19 18:50 19:35 WBC RBC Hgb Hct MCV MCH MCHC RDW Std Deviation RDW Coeff of Renee Plt Count MPV Immature Gran % (Auto) Neut % (Auto) Lymph % (Auto) [place] % (Auto) Eos % (Auto) Baso % (Auto) Absolute Neuts (auto) Absolute Lymphs (auto) Nucleated RBC % PT INR APTT Sodium Potassium Chloride Carbon Dioxide Anion Gap BUN Creatinine Estim Creat Clear Calc Est GFR (MDRD) Af Amer Est GFR (MDRD) Non-Af BUN/Creatinine Ratio Glucose Lactic Acid 3.3 H Calcium Total Bilirubin AST ALT Alkaline Phosphatase Total Protein Albumin Globulin Albumin/Globulin Ratio Urine Color Yellow Urine Clarity Clear Urine pH 8.0 Ur Specific [place] 1.010 Urine Protein Negative Urine Glucose (UA) Normal Urine Ketones 5 H Urine Occult Blood Negative Urine Nitrite Negative Urine Bilirubin Negative Urine Urobilinogen Normal Ur Leukocyte Esterase Negative Urine RBC 0 SEEN Urine WBC 0 SEEN Ur Squamous Epith Cells 0-5 SEEN Urine Bacteria 0 SEEN Urine Mucus 0 SEEN - EKG Initial EKG Interpretation: Sinus Rhythm - Sinus tach at 106 with nonspecific diffuse T wave flattening. - Medical Decision Making Patient was given IV fluids and Tylenol for her fever. Repeat temperature is 100.1. Patient feels improved. She has no respiratory symptoms or cough. Lungs are clear with good O2 sat. I do not think x-ray will be beneficial. She has no abdominal pain. I do not feel CT imaging is needed. Patient was given p.o. potassium replacement. She will take 40 mEq a day for the next 3 days. Blood and urine cultures were drawn and she was advised if any of these are positive she will receive a phone call to return. Otherwise she is to continue her full course of antibiotics for her partially treated UTI. ED Disposition - Plan for ED Patient: Disposition: Home or Assisted Living Diagnosis: Fever Instructions: FEVER CONTROL (Adult) Referrals: Tico Walker MD [Primary Care Provider] - 3-5 Days if not improving Additional Instructions: For the next 3 days, take a total of 40mEq of potassium a day (20mEq in AM and 20mEq in PM)
[2019-05-15 20:01] LABS: Color, Urine Yellow (Yellow); Glucose, Dipstick Normal (Normal); Ketone-Dipstick 5 mg/dl (Negative); Leukocyte Esterase-Dipstick Negative /ul (Negative); Nitrite-Dipstick Negative (Negative); Occult Blood-Urine Negative /ul (Negative); Protein-Dipstick Negative (Negative); Urine Bilirubin Dipstick Negative (Negative); Urine Clarity Clear (Clear); Urine Urobilinogen Normal (Normal)
--- NOTE | 2019-05-15 20:03 | ED.RN ---
lab called with critical lab results. potassium level 2.7. Dr. antonio made aware no new orders at this time
[2019-05-15 20:04] LABS: ALB/GLOB Ratio 0.8 RATIO (0.9-2.4); AST(SGOT) 23 U/L (15-37); Alanine Aminotransfer ALT/SGPT 29 U/L (13-56); Albumin, Serum 3.2 g/dL (3.2-5.0); Alkaline Phosphatase 52 U/L (45-117); Anion Gap 9 (5-15); BUN 6 mg/dL (7-18); BUN/Creat Ratio 8.2 RATIO (10-20); Calcium,Total 8.8 mg/dL (8.5-10.1); Chloride 99 mmol/L (98-107); Creatinine, Serum 0.73 mg/dL (0.55-1.02); EST Glomerular Filtration Rate 93 mL/min (>60); Est Glom Filt Rate - Afr Amer 113 mL/min (>60); Estimated Creatinine Clearance 113.35 ml/min; Globulin 4.1 g/dL (2.2-4.2); Glucose 149 mg/dL (74-106); Potassium 2.7 mmol/L (3.5-5.1); Protein, Total 7.3 g/dL (6.4-8.2); Sodium Level 137 mmol/L (136-145)
--- NOTE | 2019-05-15 20:04 | ED.RN ---
lab called with critical lab lactic acid 3.3. Dr. Arceo made aware. no new orders at this time
[2019-05-15 20:06] LABS: Lactic Acid 3.3 mmol/L (0.4-2.0)
[2019-05-15 20:10] LABS: Squamous Epithelial Cells - UA 0-5 SEEN /hpf (5-10)
[2019-05-15 23:13] LABS: Reflex Lactate? Y
== END 2019-05-15 21:48 | disposition home or self-care (01) ==
PROVIDERS: Emergency Provider Emergency Medicine; Family Provider Family Medicine; PCP Family Medicine
DX: R50.9 Fever, unspecified (principal); N39.0 Urinary tract infection, site not specified; Z79.82 Long term (current) use of aspirin; Z79.84 Long term (current) use of oral hypoglycemic drugs; Z79.1 Long term (current) use of non-steroidal anti-inflammatories (NSAID); Z79.899 Other long term (current) drug therapy; Z88.1 Allergy status to other antibiotic agents
CPT/HCPCS: 80053; 81001; 83605; 85025; 85610; 85730; 87040; 87086; 87088; 93005; 96360; 96361; 99285; J7030; A4216

== ENCOUNTER → 2019-05-18 16:36 | Outpatient (CLI) | payer OTHER, SELFPAY ==
[2019-05-15 18:11] VITALS: BMI 38.6
[2019-05-18 18:05] LABS: Anion Gap 7 (5-15); BUN 10 mg/dL (7-18); BUN/Creat Ratio 14.5 RATIO (10-20); Calcium,Total 9.9 mg/dL (8.5-10.1); Chloride 103 mmol/L (98-107); Creatinine, Serum 0.69 mg/dL (0.55-1.02); EST Glomerular Filtration Rate 99 mL/min (>60); Est Glom Filt Rate - Afr Amer 120 mL/min (>60); Glucose 135 mg/dL (74-106); Potassium 3.4 mmol/L (3.5-5.1); Sodium Level 140 mmol/L (136-145)
== END ==
PROVIDERS: Family Provider Family Medicine; PCP Family Medicine; Referring Provider Family Medicine; Visit Provider Family Medicine
DX: E87.6 Hypokalemia (principal)
CPT/HCPCS: 36415; 80048

== ENCOUNTER → 2019-05-30 16:51 | Outpatient (CLI) | payer OTHER, SELFPAY ==
[2019-05-15 18:11] VITALS: BMI 38.6
[2019-05-30 18:26] LABS: Thyroid Stim Hormone (TSH) 1.52 uIU/mL (0.358-3.74)
[2019-05-31 10:51] LABS: Hepatitis B Surface Antibody Reactive; Rubella IgG 462.2 IU/mL
[2019-06-02 18:26] LABS: V-Zoster IgG (Immunity) 569 index (Immune >165)
== END ==
PROVIDERS: Family Provider Family Medicine; PCP Family Medicine; Visit Provider Nurse Practitioner Adult Health
DX: E87.6 Hypokalemia (principal); R53.83 Other fatigue; Z11.9 Encounter for screening for infectious and parasitic diseases, unspecified
CPT/HCPCS: 84132; 84443; 86706; 86735; 86762; 86765; 86787; 87086; 87088; 87186

== ENCOUNTER → 2019-06-03 16:43 | Outpatient (CLI) | payer OTHER, SELFPAY ==
[2019-05-15 18:11] VITALS: BMI 38.6
[2019-06-03 17:54] LABS: Potassium 3.5 mmol/L (3.5-5.1)
== END ==
PROVIDERS: Nurse Practitioner Adult Health; Family Provider Family Medicine; PCP Family Medicine; Referring Provider Family Medicine; Visit Provider Family Medicine
DX: E87.6 Hypokalemia (principal)
CPT/HCPCS: 36415; 84132

== ENCOUNTER → 2019-07-13 16:17 | Outpatient (CLI) | payer OTHER, SELFPAY ==
[2019-05-15 18:11] VITALS: BMI 38.6
[2019-07-13 17:56] LABS: Potassium 3.9 mmol/L (3.5-5.1)
== END ==
PROVIDERS: Family Provider Family Medicine; PCP Family Medicine; Visit Provider Nurse Practitioner Adult Health
DX: E87.6 Hypokalemia (principal)
CPT/HCPCS: 36415; 84132

== ENCOUNTER → 2019-07-25 16:20 | Outpatient (CLI) | payer OTHER, SELFPAY ==
[2019-05-15 18:11] VITALS: BMI 38.6
[2019-07-25 18:04] LABS: Anion Gap 9 (5-15); BUN 15 mg/dL (7-18); BUN/Creat Ratio 24.6 RATIO (10-20); Calcium,Total 8.6 mg/dL (8.5-10.1); Chloride 105 mmol/L (98-107); Creatinine, Serum 0.61 mg/dL (0.55-1.02); EST Glomerular Filtration Rate 115 mL/min (>60); Est Glom Filt Rate - Afr Amer 139 mL/min (>60); Glucose 119 mg/dL (74-106); Potassium 4.1 mmol/L (3.5-5.1); Sodium Level 140 mmol/L (136-145)
== END ==
PROVIDERS: Family Provider Family Medicine; PCP Family Medicine; Referring Provider Family Medicine; Visit Provider Family Medicine
DX: E87.6 Hypokalemia (principal)
CPT/HCPCS: 36415; 80048

== ENCOUNTER → 2019-08-01 16:20 | Outpatient (CLI) | payer OTHER, SELFPAY ==
[2019-05-15 18:11] VITALS: BMI 38.6
[2019-08-01 18:23] LABS: AST(SGOT) 11 U/L (15-37); Alanine Aminotransfer ALT/SGPT 19 U/L (13-56); Anion Gap 9 (5-15); BUN 13 mg/dL (7-18); BUN/Creat Ratio 20.7 RATIO (10-20); Calcium,Total 8.9 mg/dL (8.5-10.1); Chloride 106 mmol/L (98-107); Creatinine, Serum 0.63 mg/dL (0.55-1.02); EST Glomerular Filtration Rate 111 mL/min (>60); Est Glom Filt Rate - Afr Amer 134 mL/min (>60); Glucose 105 mg/dL (74-106); Potassium 3.5 mmol/L (3.5-5.1); Sodium Level 141 mmol/L (136-145)
== END ==
PROVIDERS: Family Provider Family Medicine; PCP Family Medicine; Referring Provider Internal Medicine Endocrinology, Diabetes & Metabolism; Visit Provider Internal Medicine Endocrinology, Diabetes & Metabolism
DX: E11.9 Type 2 diabetes mellitus without complications (principal)
CPT/HCPCS: 36415; 80048; 83036; 84450; 84460

== ENCOUNTER → 2019-08-12 12:06 | Outpatient (CLI) | payer OTHER, SELFPAY ==
[2019-05-15 18:11] VITALS: BMI 38.6
[2019-08-12 14:07] LABS: Anion Gap 7 (5-15); BUN 14 mg/dL (7-18); Calcium,Total 9.1 mg/dL (8.5-10.1); Chloride 104 mmol/L (98-107); Creatinine, Serum 0.64 mg/dL (0.55-1.02); EST Glomerular Filtration Rate 109 mL/min (>60); Est Glom Filt Rate - Afr Amer 132 mL/min (>60); Glucose 154 mg/dL (74-106); Potassium 3.8 mmol/L (3.5-5.1); Sodium Level 140 mmol/L (136-145)
== END ==
PROVIDERS: Family Provider Family Medicine; PCP Family Medicine; Referring Provider Family Medicine; Visit Provider Family Medicine
DX: E87.6 Hypokalemia (principal)
CPT/HCPCS: 36415; 80048

== ENCOUNTER → 2019-11-26 10:03 | Outpatient (CLI) | payer OTHER, SELFPAY ==
[2019-05-15 18:11] VITALS: BMI 38.6
[2019-11-26 11:06] LABS: Hemoglobin A1c 6.1 % (4.2-6.3)
[2019-11-26 11:08] LABS: Microalbumin,Random Urine 14.8 mg/L (NO RANGE EST.); Microalbumin:Creatinine Ratio 10.2 mg/g CRE (<30 mg/g CRE)
[2019-11-26 11:42] LABS: AST(SGOT) 13 U/L (15-37); Alanine Aminotransfer ALT/SGPT 23 U/L (13-56); Albumin, Serum 3.9 g/dL (3.2-5.0); Alkaline Phosphatase 54 U/L (45-117); Anion Gap 6 (5-15); BUN 13 mg/dL (7-18); Calcium,Total 8.8 mg/dL (8.5-10.1); Chloride 105 mmol/L (98-107); Cholesterol 139 mg/dL (200); Creatinine, Serum 0.56 mg/dL (0.55-1.02); EST Glomerular Filtration Rate 125 mL/min (>60); Est Glom Filt Rate - Afr Amer 151 mL/min (>60); Globulin 3.8 g/dL (2.2-4.2); Glucose 134 mg/dL (74-106); High Density Lipoprotein 40 mg/dL; Potassium 3.6 mmol/L (3.5-5.1); Protein, Total 7.7 g/dL (6.4-8.2); Sodium Level 139 mmol/L (136-145); Triglycerides 163 mg/dL; Very Low Density Lipoprotein 33 mg/dL (5-40)
== END ==
PROVIDERS: PCP Family Medicine; Referring Provider Internal Medicine Endocrinology, Diabetes & Metabolism; Visit Provider Internal Medicine Endocrinology, Diabetes & Metabolism
DX: E11.9 Type 2 diabetes mellitus without complications (principal); E78.2 Mixed hyperlipidemia
CPT/HCPCS: 36415; 80053; 80061; 82043; 82570; 83036

== ENCOUNTER → 2020-07-06 16:06 | Outpatient (CLI) | payer OTHER, SELFPAY ==
[2019-05-15 18:11] VITALS: BMI 38.6
[2020-07-06 18:06] LABS: Absolute Lymphocyte Count 3.01 X10^3/uL (0.83-4.51); Absolute Neutrophil Count 6.5 X10^3/uL (2.0-7.7); Basophil# 0.05 X10^3/uL; Basophil% 0.5 % (0-1); Hematocrit 40.3 % (37-47); Hemoglobin 13.6 g/dL (12.0-15.0); Lymphocyte # 3.01 X10^3/ul (4.0); Mean Corp Hgb Conc 33.7 g/dL (32-36); Mean Corpuscular Hgb 30.7 pg (27.0-32.0); Monocyte# 0.64 X10^3/uL; Monocyte% 6.2 % (0-10); NRBC Flagged by Analyzer 0 % (0-5); Neutrophil # 6.53 X10^3/uL (2.7-7.7); Neutrophil % 62.8 % (47-70); POSITIVE COUNT YES; Platelet Count 253 K/mm3 (150-450); RBC Distribution Width CV 11.6 % (11.6-14.6); RBC Distribution Width SD 38.7 fl (35.1-43.9); Red Blood Count 4.43 M/mm3 (4.2-5.4); White Blood Count 10.4 K/mm3 (4.4-11.0)
[2020-07-06 18:19] LABS: Differential Indicated SCAN CRITERIA MET
[2020-07-06 18:26] LABS: ALB/GLOB Ratio 1.1 RATIO (0.9-2.4); AST(SGOT) 19 U/L (15-37); Alanine Aminotransfer ALT/SGPT 24 U/L (13-56); Albumin, Serum 3.7 g/dL (3.2-5.0); Alkaline Phosphatase 62 U/L (45-117); Anion Gap 11 (5-15); BUN 13 mg/dL (7-18); BUN/Creat Ratio 18.9 RATIO (10-20); Calcium,Total 9.6 mg/dL (8.5-10.1); Chloride 105 mmol/L (98-107); Cholesterol 157 mg/dL (200); Creatinine, Serum 0.69 mg/dL (0.55-1.02); EST Glomerular Filtration Rate 99 mL/min (>60); Est Glom Filt Rate - Afr Amer 120 mL/min (>60); Globulin 3.4 g/dL (2.2-4.2); Glucose 142 mg/dL (74-106); High Density Lipoprotein 42 mg/dL; Potassium 3.5 mmol/L (3.5-5.1); Protein, Total 7.1 g/dL (6.4-8.2); Sodium Level 141 mmol/L (136-145); Triglycerides 365 mg/dL; Very Low Density Lipoprotein 73 mg/dL (5-40)
[2020-07-06 18:35] LABS: Anisocytosis RARE; Macrocytosis RARE; Platelet Estimate ADEQUATE (ADEQ); Platelet Morphology LARGE; Red Cell Morphology N CHROM NORMAL (NORM C&C)
== END ==
PROVIDERS: PCP Family Medicine; Referring Provider Family Medicine; Visit Provider Family Medicine
DX: E11.51 Type 2 diabetes mellitus with diabetic peripheral angiopathy without gangrene (principal); E11.65 Type 2 diabetes mellitus with hyperglycemia; D50.9 Iron deficiency anemia, unspecified; R51.9 Headache, unspecified
CPT/HCPCS: 36415; 80053; 80061; 83735; 85025

== ENCOUNTER → 2020-11-26 10:19 | Outpatient (CLI) | payer OTHER, SELFPAY ==
[2019-05-15 18:11] VITALS: BMI 38.6
[2020-11-26 12:52] LABS: AST(SGOT) 13 U/L (15-37); Alanine Aminotransfer ALT/SGPT 27 U/L (13-56); Anion Gap 11 (5-15); BUN 13 mg/dL (7-18); BUN/Creat Ratio 16.6 RATIO (10-20); Calcium,Total 8.9 mg/dL (8.5-10.1); Chloride 104 mmol/L (98-107); Creatinine, Serum 0.78 mg/dL (0.55-1.02); EST Glomerular Filtration Rate 85 mL/min (>60); Est Glom Filt Rate - Afr Amer 103 mL/min (>60); Glucose 192 mg/dL (74-106); Potassium 3.7 mmol/L (3.5-5.1); Sodium Level 139 mmol/L (136-145)
[2020-11-26 12:57] LABS: Hemoglobin A1c 6.2 % (3.8-5.6)
== END ==
PROVIDERS: PCP Family Medicine; Referring Provider Internal Medicine Endocrinology, Diabetes & Metabolism; Visit Provider Internal Medicine Endocrinology, Diabetes & Metabolism
DX: E11.9 Type 2 diabetes mellitus without complications (principal)
CPT/HCPCS: 36415; 80048; 83036; 84450; 84460

== ENCOUNTER → 2021-03-16 10:04 | Outpatient (CLI) | payer OTHER, SELFPAY ==
[2019-05-15 18:11] VITALS: BMI 38.6
[2021-03-16 11:19] LABS: AST(SGOT) 19 U/L (15-37); Alanine Aminotransfer ALT/SGPT 26 U/L (13-56); Anion Gap 10 (5-15); BUN 17 mg/dL (7-18); BUN/Creat Ratio 24.9 RATIO (10-20); Chloride 100 mmol/L (98-107); Cholesterol 161 mg/dL (200); Creatinine, Serum 0.68 mg/dL (0.55-1.02); EST Glomerular Filtration Rate 100 mL/min (>60); Est Glom Filt Rate - Afr Amer 121 mL/min (>60); Glucose 153 mg/dL (74-106); High Density Lipoprotein 43 mg/dL; Potassium 3.9 mmol/L (3.5-5.1); Sodium Level 136 mmol/L (136-145); Triglycerides 212 mg/dL; Very Low Density Lipoprotein 42 mg/dL (5-40)
[2021-03-16 11:20] LABS: Hemoglobin A1c 6.4 % (3.8-5.6)
[2021-03-16 11:23] LABS: Microalbumin,Random Urine 51.1 mg/L (NO RANGE EST.); Microalbumin:Creatinine Ratio 48.2 mg/g CRE (<30 mg/g CRE)
== END ==
PROVIDERS: PCP Family Medicine; Referring Provider Internal Medicine Endocrinology, Diabetes & Metabolism; Visit Provider Internal Medicine Endocrinology, Diabetes & Metabolism
DX: E11.9 Type 2 diabetes mellitus without complications (principal); E78.2 Mixed hyperlipidemia
CPT/HCPCS: 36415; 80048; 80061; 82043; 82570; 83036; 84450; 84460

== ENCOUNTER → 2021-04-04 15:22 | Outpatient (CLI) | payer OTHER, SELFPAY ==
[2019-05-15 18:11] VITALS: BMI 38.6
--- NOTE | 2021-04-04 15:24 | VDLE_ITS ---
Reason For Study: Swelling of calf Procedure LEFT This is a venous duplex using B-mode, color GSV is normal. flow and spectral Doppler. CFV is compressible, spontaneous, phasic, Exam performed in department. competent, and demonstrates normal A preliminary report was called and/or faxed augmentation. to [facility]. FV is compressible, spontaneous, phasic, competent and demonstrates normal augmentation. POP V is compressible, spontaneous, phasic, competent and demonstrates normal augmentation. T/P Trunk is compressible. PTV is compressible. LT PerV is compressible. VL/Venous Duplex US, Unilateral Interpretation Summary Deep veins of the left lower extremity are patent and compressible segmentally. There is no evidence of left lower extremity deep vein thrombosis. Valvular competence appears intac t within the proximal deep venous system on the left . The left great saphenous vein appears patent a nd compressible segmentally. Ordering Physician: Link Nayak Referring Physician: Tico Walker Performed By: Carolina German RVT
== END ==
PROVIDERS: PCP Family Medicine; Referring Provider Internal Medicine Rheumatology; Visit Provider Internal Medicine Rheumatology
DX: M79.89 Other specified soft tissue disorders (principal)
CPT/HCPCS: 93971

== ENCOUNTER → 2021-06-27 | Outpatient (CLI) | payer OTHER, SELFPAY ==
[2021-06-27 17:52] LABS: Hemoglobin A1c 6.5 % (3.8-5.6)
[2021-06-27 18:14] LABS: AST(SGOT) 12 U/L (15-37); Alanine Aminotransfer ALT/SGPT 23 U/L (13-56); Anion Gap 7 (5-15); BUN 17 mg/dL (7-18); BUN/Creat Ratio 30.3 RATIO (10-20); Calcium,Total 9.3 mg/dL (8.5-10.1); Chloride 102 mmol/L (98-107); Creatinine, Serum 0.56 mg/dL (0.55-1.02); EST Glomerular Filtration Rate 125 mL/min (>60); Est Glom Filt Rate - Afr Amer 151 mL/min (>60); Glucose 141 mg/dL (74-106); Potassium 3.8 mmol/L (3.5-5.1); Sodium Level 135 mmol/L (136-145)
== END | disposition home or self-care (01) ==
LOC: LAB 17:14
PROVIDERS: PCP Family Medicine; Referring Provider Internal Medicine Endocrinology, Diabetes & Metabolism; Visit Provider Internal Medicine Endocrinology, Diabetes & Metabolism
DX: E11.9 Type 2 diabetes mellitus without complications (principal)
CPT/HCPCS: 36415; 80048; 83036; 84450; 84460

== ENCOUNTER → 2021-08-07 15:21 | Outpatient (CLI) | payer OTHER, SELFPAY ==
[2021-08-07 17:53] LABS: Thyroid Stim Hormone (TSH) 1.05 uIU/mL (0.358-3.74)
== END ==
PROVIDERS: PCP Family Medicine; Referring Provider Family Medicine; Visit Provider Family Medicine
DX: E66.9 Obesity, unspecified (principal)
CPT/HCPCS: 36415; 84443

== ENCOUNTER → 2021-09-03 15:07 | Outpatient (CLI) | payer OTHER, SELFPAY ==
[2021-09-03 17:07] LABS: Absolute Neutrophil Count 6.8 X10^3/uL (2.0-7.7); Basophil# 0.07 X10^3/uL; Basophil% 0.7 % (0-1); Eosinophil# 0.06 X10^3/uL; Eosinophils% 0.6 % (0-5); Hemoglobin 14.7 g/dL (12.0-15.0); Lymphocyte % 21.7 % (19-41); Mean Corp Hgb Conc 34.2 g/dL (32-36); Mean Corpuscular Hgb 31.1 pg (27.0-32.0); Mean Corpuscular Volume 91.1 fL (81-99); Monocyte# 0.58 X10^3/uL; NRBC Flagged by Analyzer 0 % (0-5); Neutrophil # 6.81 X10^3/uL (2.7-7.7); Neutrophil % 70.4 % (47-70); Platelet Count 263 K/mm3 (150-450); RBC Distribution Width CV 11.9 % (11.6-14.6); RBC Distribution Width SD 39.5 fl (35.1-43.9); Red Blood Count 4.72 M/mm3 (4.2-5.4); White Blood Count 9.7 K/mm3 (4.4-11.0)
[2021-09-03 17:26] LABS: ALB/GLOB Ratio 0.9 RATIO (0.9-2.4); AST(SGOT) 19 U/L (15-37); Alanine Aminotransfer ALT/SGPT 33 U/L (13-56); Albumin, Serum 3.7 g/dL (3.2-5.0); Alkaline Phosphatase 83 U/L (45-117); BUN 10 mg/dL (7-18); BUN/Creat Ratio 14.7 RATIO (10-20); Calcium,Total 9.5 mg/dL (8.5-10.1); Chloride 102 mmol/L (98-107); Creatinine, Serum 0.68 mg/dL (0.55-1.02); EST Glomerular Filtration Rate 100 mL/min (>60); Est Glom Filt Rate - Afr Amer 121 mL/min (>60); Glucose 198 mg/dL (74-106); Potassium 3.7 mmol/L (3.5-5.1); Protein, Total 7.7 g/dL (6.4-8.2); Sodium Level 139 mmol/L (136-145)
[2021-09-03 17:27] LABS: Anion Gap 13 (5-15)
== END ==
PROVIDERS: PCP Internal Medicine; Referring Provider Internal Medicine; Visit Provider Internal Medicine
DX: I10 Essential (primary) hypertension (principal)
CPT/HCPCS: 36415; 80053; 85025

== ENCOUNTER → 2021-09-04 13:36 | Outpatient (CLI) | payer OTHER, SELFPAY ==
[2021-09-04 14:25] LABS: Erythrocyte Sedimentation Rate 11 mm/hr (0-30)
[2021-09-04 14:54] LABS: AST(SGOT) 18 U/L (15-37); Alanine Aminotransfer ALT/SGPT 32 U/L (13-56); Albumin, Serum 3.6 g/dL (3.2-5.0); Alkaline Phosphatase 76 U/L (45-117); Bilirubin, Direct 0.06 mg/dL (0.00-0.30); CRP 7.11 mg/L (0.0-3.0); Globulin 4.1 g/dL (2.2-4.2); LDH 172 U/L (84-246); Protein, Total 7.7 g/dL (6.4-8.2)
[2021-09-06 13:07] LABS: Anti-Centromere B Ab <0.2 AI (0.0-0.9); Anti-Chromatin <0.2 AI (0.0-0.9); Anti-Jo <0.2 AI (0.0-0.9); Anti-Scleroderma-70 AB <0.2 AI (0.0-0.9); RNP Ab <0.2 AI (0.0-0.9); SJOGREN'S Anti-SS-A test < 0.2 AI (0.0-0.9); SJOGREN'S Anti-SS-B test < 0.2 AI (0.0-0.9); Smith Ab <0.2 AI (0.0-0.9)
[2021-09-06 20:34] LABS: Anti-Mitochondrial AB <20.0 Units (0.0-20.0)
[2021-09-06 20:35] LABS: Anti-dsDNA Ab <1 IU/mL (0-9)
[2021-09-11 03:07] LABS: Angiotensin Convert Enzyme 57 U/L (14-82); Ceruloplasmin 30.9 mg/dL (19.0-39.0); Cytoplasmic Ab (C-ANCA) <1:20 titer (Neg:<1:20)
[2021-09-11 08:47] LABS: AFP, Tumor Marker 2.8 ng/mL (0.0-8.3); Anti-Smooth Muscle ABS 3 Units (0-19); Copper, Serum or Plasma 138 ug/dL (80-158); Haptoglobin 196 mg/dL (42-296); Perinuclear Ab (P-ANCA) <1:20 titer (Neg:<1:20)
== END ==
PROVIDERS: Internal Medicine Gastroenterology; PCP Internal Medicine; Referring Provider Nurse Practitioner Adult Health; Visit Provider Nurse Practitioner Adult Health
DX: K76.0 Fatty (change of) liver, not elsewhere classified (principal)
CPT/HCPCS: 36415; 80076; 82105; 82164; 82390; 82525; 83010; 83516; 83615; 85652; 86140; 86225; 86235; 86256

== ENCOUNTER → 2021-09-05 10:47 | Outpatient (CLI) | payer OTHER, SELFPAY ==
--- NOTE | 2021-09-05 10:50 | BI_ITS ---
MAMMOGRAPHY - BILATERAL SCREENING REASON FOR EXAM: Female, 46 years old. Routine annual screening examination. PERTINENT HISTORY: Non-contributory. Prior left ultrasound guided breast biopsy. TECHNIQUE: Digital bilateral breast romero (3D mammographic acquisition) in the CC and MLO projections. 2-D mediolateral oblique (MLO) and craniocaudad (CC) views of both breasts were obtained. CAD: Full Field Digital Mammography with Computer Added Detection was performed. COMPARISON: Comparison is made with prior examination of 10/23/2018. FINDINGS: Breast Composition: There are scattered areas of fibroglandular density. Once again, there is a 2 cm x 1.9 cm slightly lobulated well-defined nodule in the medial superior retroareolar region of the left breast. A tissue marker is seen within. No other significant abnormalities are identified. There has been no significant change since the prior study. BI/SCRN MAMM (CAD)W/ROMERO BILAT IMPRESSION: Stable bilateral screening mammogram. Status post biopsy of the left retroareolar nodule. Yearly follow-up mammogram recommended. (A) ASSESSMENT CATEGORY: BIRADS Category 2: Benign. A letter regarding these results will be sent to the patient by the facility within 30 days. Approximately 10% of breast cancers are not detected by mammography. A normal mammogram should not delay biopsy of a clinically suspicious abnormality. [id number] Electronically Signed: Adán East MD at 12:23 EST , Service support ,
== END ==
PROVIDERS: PCP Internal Medicine; Referring Provider Family Medicine; Visit Provider Family Medicine
DX: Z12.31 Encounter for screening mammogram for malignant neoplasm of breast (principal); N63.42 Unspecified lump in left breast, subareolar
CPT/HCPCS: 77063; 77067

== ENCOUNTER 2021-09-18 08:57 | Outpatient (CLI) | payer BC, OTHER, SELFPAY ==
--- NOTE | 2021-09-18 09:02 | US_ITS ---
STUDY: ABDOMINAL ULTRASOUND - RIGHT UPPER QUADRANT REASON FOR VISIT: Female, 46 years old gallbladder polyp, fatty liver, hepatomegaly TECHNIQUE: Ultrasound evaluation of the right upper quadrant was performed with real-time and static bolden-scale imaging. TECHNICAL QUALITY: Adequate. COMPARISON: Comparison is made with prior examination 11/08/2015. FINDINGS: Liver: The liver is enlarged and measures 19.9 cm. There is increased echogenicity consistent with fatty infiltration. The bile ducts are within normal limits. There is hepatic color flow. The direction of portal flow is hepatopetal. There is no demonstrated mass lesion. Gallbladder: Normal distended gallbladder. The gallbladder wall measures 3 mm. There is a negative sonographic Shaver''s sign. There is no pericholecystic fluid. There is a solitary echogenic gallstone within the gallbladder. It measures 7.8 cm. Common Bile Duct (C.B.D.): The common bile duct measures 4 mm. Pancreas: Normal size of the head, body and tail of the pancreas. There is normal echogenicity of the pancreas. There is no demonstrated pancreatic mass or cyst. Right Kidney: Normal size of the right kidney. The right kidney measures 11.9 cm x 6.8 cm x 5.6 cm. Normal renal cortex. The right cortex measures 1.5 cm. There is no demonstrated renal mass or cyst. There is no right hydronephrosis. IMPRESSION: Hepatomegaly and fatty infiltration of the liver. Solitary gallstone. This measures 7.8 mm. Electronically Signed: Adán East MD at 10:55 EST , Service support , STUDY: ABDOMINAL ULTRASOUND - ELASTOGRAPHY REASON FOR VISIT: Female, 46 years old. Hepatomegaly and fatty infiltration of the liver. TECHNIQUE: Liver stiffness measurements were obtained on a [employer] 85 ultrasound machine using a CA 1-7 probe following the SRU guidelines. 3 measurements were obtained using a 2-D-SWE method. The IQR/M was 11% suggesting a quality data set. TECHNICAL QUALITY: Adequate. COMPARISON: Comparison is made with prior sonogram of the right upper quadrant done earlier in the day. FINDINGS: Liver: Hepatomegaly and fatty infiltration of the liver. Median liver stiffness measured 22 kPa. US/Abdomen Limited IMPRESSION: Liver stiffness measures 22 kPa compatible with F4 Metavir score. Electronically Signed: Adán East MD at 10:57 EST , Service support ,
== END 2021-09-18 23:59 | disposition short-term general hospital (02) ==
LOC: US 09:01
PROVIDERS: PCP Internal Medicine; Referring Provider Nurse Practitioner Adult Health; Visit Provider Nurse Practitioner Adult Health
DX: K82.4 Cholesterolosis of gallbladder (principal); K76.0 Fatty (change of) liver, not elsewhere classified; R16.0 Hepatomegaly, not elsewhere classified
CPT/HCPCS: 76705; 76981

== ENCOUNTER 2021-09-20 16:42 | Outpatient (CLI) | payer BC, OTHER, SELFPAY ==
[2021-09-20 18:02] LABS: Ferritin 43 ng/mL (8-252)
[2021-09-22 10:07] LABS: HEPATITIS B SURFACE AG Negative (Negative); Hepatitis A IgM Antibody Negative (Negative); Hepatitis B Core AB IgM Negative (Negative)
[2021-09-22 10:11] LABS: Hep C Antibodies <0.1 s/co ratio (0.0-0.9)
== END 2021-09-20 23:59 | disposition short-term general hospital (02) ==
LOC: LAB 16:46
PROVIDERS: PCP Internal Medicine; Visit Provider Nurse Practitioner Adult Health
DX: K74.00 Hepatic fibrosis, unspecified (principal); K76.0 Fatty (change of) liver, not elsewhere classified
CPT/HCPCS: 36415; 80074; 82728

== ENCOUNTER 2021-09-28 10:28 | Outpatient (CLI) | payer BC, OTHER, SELFPAY ==
[2021-09-28 11:10] LABS: AST(SGOT) 21 U/L (15-37); Alanine Aminotransfer ALT/SGPT 34 U/L (13-56); Anion Gap 12 (5-15); BUN 15 mg/dL (7-18); BUN/Creat Ratio 23.7 RATIO (10-20); Chloride 100 mmol/L (98-107); Cholesterol 169 mg/dL (200); Creatinine, Serum 0.63 mg/dL (0.55-1.02); EST Glomerular Filtration Rate 109 mL/min (>60); Est Glom Filt Rate - Afr Amer 131 mL/min (>60); Glucose 177 mg/dL (74-106); High Density Lipoprotein 41 mg/dL; Potassium 3.7 mmol/L (3.5-5.1); Sodium Level 137 mmol/L (136-145); Triglycerides 365 mg/dL; Very Low Density Lipoprotein 73 mg/dL (5-40)
[2021-09-28 11:11] LABS: Hemoglobin A1c 6.9 % (3.8-5.6)
== END 2021-09-28 23:59 | disposition short-term general hospital (02) ==
LOC: LAB 10:31
PROVIDERS: PCP Internal Medicine; Visit Provider Internal Medicine Endocrinology, Diabetes & Metabolism
DX: E11.9 Type 2 diabetes mellitus without complications (principal); E78.2 Mixed hyperlipidemia; I10 Essential (primary) hypertension
CPT/HCPCS: 36415; 80048; 80061; 83036; 84450; 84460

== ENCOUNTER 2021-10-02 15:58 | Outpatient (CLI) | payer BC, OTHER, SELFPAY | END 2021-10-02 23:59 | disposition short-term general hospital (02) | LOC: LABSPEC 15:59 | PROVIDERS: PCP Internal Medicine; Referring Provider Nurse Practitioner Family; Visit Provider Nurse Practitioner Family | DX: Z20.822 Contact with and (suspected) exposure to COVID-19 (principal) | CPT/HCPCS: 87635; U0003; U0005 ==

== ENCOUNTER 2021-10-11 07:31 | Outpatient (CLI) | payer BC, OTHER, SELFPAY ==
[2021-10-11] VITALS (10 sets, daily range): BP systolic 102–136; BP diastolic 40–89; PULSE 75–82; RESP 12–22; TEMP 37.1; O2SAT 95–100; BMI 42.5
--- NOTE | 2021-10-11 | LIVB_PTH ---
PATIENT: AYDEN STALLWORTH LOC: [place] U#:[id number] AGE/SX: 46/F ROOM: RE10/11/[address]: MARIANA Seymour : 1975 BED: DIS: 10/11/2021 SPEC #: [id number] RECD: 10/11/21 11:27 STATUS: SONIA MOUSTAPHA #: [id number] ANATOLIY: 10/11/21 00:[address]: Milli Aparicio NP DEPT: SURGICAL PATHOLOGY RECD BY: Jose A Delgado ENTERED: 10/11/21 11:28 SP TYPE: LIVER BX OTHR DR: MD Dr. dAán Martínez MD Tissues: Liver, NOS Procedures: PAS with Diastase (control) Trichrome (control) Special Stain Group II PAS Stain (control) Surgery Specimen Level V Retic (control) Iron Stain (control) HEADER OPERATION: Liver biopsy PRE-OP DIAGNOSIS: Liver fibrosis TISSUE SUBMITTED: Liver 18-gauge x3 MICROSCOPIC DIAGNOSIS Liver, CT-guided core biopsy: Microvesicular and macrovesicular steatosis. Minimal, focal chronic inflammation and focal bridging fibrosis. No evidence of cirrhosis. See comment. AM:joseluis 10/14/2021 COMMENT There is minimal focal intraparenchymal, chronic inflammation. Trichrome stain with matched control reveals minimal focal bridging fibrosis. Reticulin stain with matched control reveals normal hepatic parenchymal architecture. Iron stain with matched control does not reveal intraparenchymal deposition iron. PAS with and without diastase does not reveal accumulation of abnormal proteins. Clinical correlation is suggested. Case has been reviewed in consultation with Dr. Ibrahim who concurs with the above diagnosis. IDC:NATHALIA MICROSCOPIC DESCRIPTION Slides are reviewed. GROSS DESCRIPTION Received is one container labeled with the patient's name and not further designated. The specimen consists of three elongated pieces of gaona soft tissue each measuring 2 cm in length and 0.1 cm in diameter. The specimen is totally submitted in one cassette. / NATHALIA:joseluis 10/11/2021 TC:3 CPT: 57296, 92168 x5
[2021-10-11 07:49] LABS: Platelet Count 383 K/mm3 (150-450)
--- NOTE | 2021-10-11 07:57 | CT_ITS ---
PROCEDURE: CT DIRECTED CORE LIVER BIOPSY INDICATION: Female, 46 years old. Liver fibrosis F4 PHYSICIAN: Dr. EVERETT Ayala CONSENT: Written informed consent was obtained having explained the risks, benefits and alternatives in detail with the patient who accepted the risks and agreed to proceed. Laboratory review and clinical assessment was performed. CONSCIOUS SEDATION PROTOCOL: The Drugs used were: 2 mg Versed, IV., and 50 mcg Fentanyl, IV. The sedation time was: 20 minutes. Conscious sedation was started at 9:03 AM and terminated at 9:23 AM. The conscious sedation protocol was independently monitored. RADIATION DOSAGE (If Supplied By Facility): CTDIvol = ( 25 ) mGy, DLP = ( 1655.35 ) mGycm Individualized dose optimization techniques were used for this CT. TECHNIQUE: Using CT image guidance with image documentation, a suitable location in the right lobe of the liver was identified. Using an anterior approach, puncture of the liver was uneventful with an 18-gauge core needle system. 3, 18-gauge core samples were obtained, and submitted in formalin to the pathologist for further assessment. Followup CT scan revealed no distinct sequelae. CT/Biopsy/Inj or Needle Placement IMPRESSION: 1. CT directed core needle biopsy of the liver, using CT image guidance with image documentation as described. 2. Conscious Sedation protocol utilized with independent monitoring. Electronically Signed: Adán East MD at 9:46 EST ,
--- NOTE | 2021-10-11 07:57 | CT_ITS ---
STUDY: CT ABDOMEN WITH AND WITHOUT CONTRAST REASON FOR EXAM: Female, 46 years old. Liver fibrosis -- triple phase RADIATION DOSAGE (If Supplied By Facility): CTDIvol = ( 27.19 ) mGy, DLP = ( 1655.35 ) mGycm TECHNIQUE: Transaxial images were obtained pre and post I.V. administration of [id number] 100ml, and without oral contrast. Sagittal and coronal images were reconstructed. Individualized dose optimization techniques were used for this CT. COMPARISON: None. FINDINGS: The visualized lung bases are unremarkable. The visualized portions of the heart are within normal limits. There is decreased attenuation of the liver consistent with steatosis. Mild hepatomegaly. There is a solitary gallstone. Normal spleen. Normal pancreas. Normal bilateral adrenal glands. 1 cm cyst in the upper pole of the right kidney. 2 mm nonobstructive calculus in the mid posterior aspect of the left kidney. There is a 2.6 cm cyst in the posterior midportion of the left kidney. There is a small hiatal hernia. Normal small intestine. Normal colon. The appendix is visualized and appears normal. Normal abdominal aorta. Normal inferior vena cava. Normal retroperitoneum. Normal abdominal wall. There are mild degenerative changes of the visualized lumbar spine. CT/Abdomen W/WO IV Contrast IMPRESSION: Mild hepatomegaly and diffuse fatty infiltration of the liver. Solitary gallstone. 2.6 cm cyst in the posterior midportion of the left kidney with a nonobstructive left intrarenal calculus. Electronically Signed: Adán East MD at 9:49 EST ,
[2021-10-11 08:04] LABS: Partial Thromboplast Time 24.2 Seconds (24.1-36.2); Prothrombin Time (Protime)PT. 12.2 SECONDS (11.7-14.9)
[2021-10-11] MEDS: Midazolam 2 MG/2 ML Syringe IV ×2 (09:03→09:19)
[2021-10-11] MEDS: fentaNYL 100 MCG/2 ML Ampul IV (09:05)
[2021-10-11] MEDS: 0.9% Saline Lock 10 ML Syringe IV (09:08)
[2021-10-11] MEDS: Lidocaine 2% (20 ml mdv) 20 ML Vial INFILT (09:10)
== END 2021-10-11 23:59 | disposition home or self-care (01) ==
PROVIDERS: PCP Internal Medicine; Referring Provider Nurse Practitioner Adult Health; Visit Provider Nurse Practitioner Adult Health
DX: K74.00 Hepatic fibrosis, unspecified (principal); E66.01 Morbid (severe) obesity due to excess calories; E11.9 Type 2 diabetes mellitus without complications; I73.00 Raynaud's syndrome without gangrene; I10 Essential (primary) hypertension; M19.90 Unspecified osteoarthritis, unspecified site; K21.9 Gastro-esophageal reflux disease without esophagitis; G47.33 Obstructive sleep apnea (adult) (pediatric); F32.A Depression, unspecified; F41.9 Anxiety disorder, unspecified; Z79.82 Long term (current) use of aspirin; Z79.84 Long term (current) use of oral hypoglycemic drugs; Z79.899 Other long term (current) drug therapy
CPT/HCPCS: 47000; 36415; 74170; 77012; 85049; 85610; 85730; 88305; 88307; 88313; 99156; J7040; Q9967; A4216

== ENCOUNTER → 2022-03-21 | Outpatient (CLI) | payer BC, OTHER, SELFPAY ==
[2022-03-21 17:49] LABS: AST(SGOT) 16 U/L (15-37); Alanine Aminotransfer ALT/SGPT 26 U/L (13-56); Albumin, Serum 3.7 g/dL (3.2-5.0); Alkaline Phosphatase 75 U/L (45-117); Anion Gap 10 (5-15); BUN 13 mg/dL (7-18); BUN/Creat Ratio 17.4 RATIO (10-20); Calcium,Total 9.5 mg/dL (8.5-10.1); Chloride 102 mmol/L (98-107); Creatinine, Serum 0.75 mg/dL (0.55-1.02); EST Glomerular Filtration Rate 89 mL/min (>60); Est Glom Filt Rate - Afr Amer 108 mL/min (>60); Globulin 3.8 g/dL (2.2-4.2); Glucose 189 mg/dL (74-106); Potassium 3.6 mmol/L (3.5-5.1); Protein, Total 7.5 g/dL (6.4-8.2); Sodium Level 140 mmol/L (136-145)
== END | disposition home or self-care (01) ==
LOC: LAB 15:24
PROVIDERS: PCP Internal Medicine; Visit Provider Internal Medicine Endocrinology, Diabetes & Metabolism
DX: E11.9 Type 2 diabetes mellitus without complications (principal)
CPT/HCPCS: 36415; 80053

== ENCOUNTER → 2022-04-01 | Outpatient (CLI) | payer BC, OTHER, SELFPAY ==
[2022-04-01 10:27] LABS: Absolute Lymphocyte Count 2.54 X10^3/uL (0.83-4.51); Absolute Neutrophil Count 6.5 X10^3/uL (2.0-7.7); Basophil# 0.05 X10^3/uL; Basophil% 0.5 % (0-1); Eosinophil# 0.07 X10^3/uL; Eosinophils% 0.7 % (0-5); Hemoglobin 15.9 g/dL (12.0-15.0); Lymphocyte # 2.54 X10^3/ul (0.83-4.51); Lymphocyte % 25.9 % (19-41); Mean Corp Hgb Conc 33.1 g/dL (32-36); Mean Corpuscular Hgb 30.9 pg (27.0-32.0); Mean Corpuscular Volume 93.4 fL (81-99); Mean Platelet Vol. 9.5 fl (6.2-12.0); Monocyte# 0.58 X10^3/uL; Monocyte% 5.9 % (0-10); NRBC Flagged by Analyzer 0 % (0-5); Neutrophil # 6.52 X10^3/uL (2.7-7.7); Neutrophil % 66.4 % (47-70); Platelet Count 455 K/mm3 (150-450); RBC Distribution Width CV 11.7 % (11.6-14.6); RBC Distribution Width SD 39.8 fl (35.1-43.9); Red Blood Count 5.14 M/mm3 (4.2-5.4); White Blood Count 9.8 K/mm3 (4.4-11.0)
[2022-04-01 11:05] LABS: CRP 7.89 mg/L (0.0-3.0)
[2022-04-02 15:08] LABS: Cytoplasmic Ab (C-ANCA) <1:20 titer (Neg:<1:20)
[2022-04-03 12:05] LABS: Anti-Smooth Muscle ABS 3 Units (0-19); Perinuclear Ab (P-ANCA) <1:20 titer (Neg:<1:20)
[2022-04-03 13:00] LABS: AST(SGOT) 20 U/L (15-37); Alanine Aminotransfer ALT/SGPT 27 U/L (13-56); Albumin, Serum 4.2 g/dL (3.2-5.0); Alkaline Phosphatase 68 U/L (45-117); Bilirubin, Direct 0.08 mg/dL (0.00-0.30); Protein, Total 8.2 g/dL (6.4-8.2)
== END | disposition home or self-care (01) ==
PROVIDERS: PCP Internal Medicine; Referring Provider Internal Medicine Gastroenterology; Visit Provider Internal Medicine Gastroenterology
DX: K76.0 Fatty (change of) liver, not elsewhere classified (principal); R16.0 Hepatomegaly, not elsewhere classified
CPT/HCPCS: 36415; 80076; 83516; 85025; 86140; 86256

== ENCOUNTER → 2022-04-23 | Outpatient (CLI) | payer BC, OTHER, SELFPAY ==
--- NOTE | 2022-04-23 07:01 | US_ITS ---
STUDY: ABDOMINAL ULTRASOUND - ELASTOGRAPHY REASON FOR VISIT: Female, 46 years old. Hepatomegaly and fatty infiltration of the liver. TECHNIQUE: Liver stiffness measurements were obtained on a [employer] RS 85 ultrasound machine using a CA 1-7 probe following the SRU guidelines. 3 measurements were obtained using a 2-D-SWE method. The IQR/M was 18 % suggesting a quality data set. TECHNICAL QUALITY: Adequate. COMPARISON: None. FINDINGS: Liver: Hepatomegaly and fatty infiltration of the liver. Median liver stiffness measured 7.7 kPa. US/Elastography Parenchyma/Organ IMPRESSION: Liver stiffness measures 7.7 kPa compatible with F2-F3 (Mild to moderate liver fibrosis) Metavir score. Electronically Signed: Adán East MD at 9:17 EDT ,
--- NOTE | 2022-04-23 07:01 | US_ITS ---
STUDY: ABDOMINAL ULTRASOUND - RIGHT UPPER QUADRANT REASON FOR VISIT: Female, 46 years old . Fatty liver. TECHNIQUE: Ultrasound evaluation of the right upper quadrant was performed with real-time and static bolden-scale imaging. TECHNICAL QUALITY: Adequate. COMPARISON: Comparison is made with prior study dated 09/18/2021. FINDINGS: Liver: The liver is enlarged and measures 20.6 cm. There is increased echogenicity consistent with fatty infiltration. The bile ducts are within normal limits. There is hepatic color flow. The direction of portal flow is hepatopetal. There is no demonstrated mass lesion. Gallbladder: Normal distended gallbladder. The gallbladder wall measures 2.0 mm. There is a negative sonographic Shaver''s sign. There is no pericholecystic fluid. There is a solitary echogenic gallstone within the gallbladder. It measures 8 mm. Common Bile Duct (C.B.D.): The common bile duct measures 5 mm. Pancreas: Normal size of the head, body and tail of the pancreas. There is normal echogenicity of the pancreas. There is no demonstrated pancreatic mass or cyst. Right Kidney: Normal size of the right kidney. The right kidney measures 12.1 cm x 7.2 cm x 5.5 cm. Normal renal cortex. The right cortex measures 2.0 cm. There is no demonstrated renal mass or cyst. There is no right hydronephrosis. US/Abdomen Limited IMPRESSION: Hepatomegaly and diffuse fatty infiltration of the liver. Solitary gallstone. There has been no change since prior examination. Electronically Signed: Adán East MD at 9:15 EDT ,
== END | disposition home or self-care (01) ==
LOC: US 07:00
PROVIDERS: PCP Internal Medicine; Referring Provider Internal Medicine Gastroenterology; Visit Provider Internal Medicine Gastroenterology
DX: K76.0 Fatty (change of) liver, not elsewhere classified (principal)
CPT/HCPCS: 76705; 76981

== ENCOUNTER → 2022-05-03 | Outpatient (CLI) | payer BC, OTHER, SELFPAY ==
[2022-05-03 11:11] LABS: Hemoglobin A1c 6.7 % (3.8-5.6)
[2022-05-03 11:16] LABS: AST(SGOT) 11 U/L (15-37); Alanine Aminotransfer ALT/SGPT 21 U/L (13-56); Anion Gap 8 (5-15); BUN 10 mg/dL (7-18); BUN/Creat Ratio 17.6 RATIO (10-20); Calcium,Total 8.9 mg/dL (8.5-10.1); Chloride 101 mmol/L (98-107); Cholesterol 157 mg/dL (200); Creatinine, Serum 0.57 mg/dL (0.55-1.02); EST Glomerular Filtration Rate 123 mL/min (>60); Est Glom Filt Rate - Afr Amer 148 mL/min (>60); Glucose 161 mg/dL (74-106); High Density Lipoprotein 39 mg/dL; Potassium 3.6 mmol/L (3.5-5.1); Sodium Level 138 mmol/L (136-145); Triglycerides 261 mg/dL; Very Low Density Lipoprotein 52 mg/dL (5-40)
== END | disposition home or self-care (01) ==
PROVIDERS: Internal Medicine Endocrinology, Diabetes & Metabolism; PCP Internal Medicine
DX: E11.9 Type 2 diabetes mellitus without complications (principal); E78.2 Mixed hyperlipidemia
CPT/HCPCS: 36415; 80048; 80061; 82043; 82570; 83036; 84450; 84460

== ENCOUNTER → 2022-06-30 | Outpatient (CLI) | payer BC, OTHER, SELFPAY ==
[2022-06-30 15:21] LABS: Absolute Neutrophil Count 6.2 X10^3/uL (2.0-7.7); Basophil# 0.04 X10^3/uL; Basophil% 0.4 % (0-1); Eosinophil# 0.07 X10^3/uL; Eosinophils% 0.7 % (0-5); Hematocrit 44.8 % (37-47); Hemoglobin 15.1 g/dL (12.0-15.0); Lymphocyte % 27.9 % (19-41); Mean Corp Hgb Conc 33.7 g/dL (32-36); Monocyte# 0.57 X10^3/uL; Monocyte% 5.9 % (0-10); NRBC Flagged by Analyzer 0 % (0-5); Neutrophil # 6.22 X10^3/uL (2.7-7.7); Neutrophil % 64.2 % (47-70); Platelet Count 387 K/mm3 (150-450); RBC Distribution Width CV 11.9 % (11.6-14.6); RBC Distribution Width SD 39.8 fl (35.1-43.9); Red Blood Count 4.87 M/mm3 (4.2-5.4); White Blood Count 9.7 K/mm3 (4.4-11.0)
[2022-06-30 15:56] LABS: AST(SGOT) 10 U/L (15-37); Alanine Aminotransfer ALT/SGPT 20 U/L (13-56); Albumin, Serum 3.7 g/dL (3.2-5.0); Alkaline Phosphatase 79 U/L (45-117); Bilirubin, Direct 0.07 mg/dL (0.00-0.30); Creatinine, Serum 0.64 mg/dL (0.55-1.02); EST Glomerular Filtration Rate 107 mL/min (>60); Est Glom Filt Rate - Afr Amer 130 mL/min (>60); Protein, Total 7.7 g/dL (6.4-8.2)
== END | disposition home or self-care (01) ==
LOC: LAB 14:28
PROVIDERS: PCP Internal Medicine; Referring Provider Internal Medicine Rheumatology; Visit Provider Internal Medicine Rheumatology
DX: Z79.899 Other long term (current) drug therapy (principal)
CPT/HCPCS: 36415; 80076; 82565; 85025

== ENCOUNTER → 2022-09-03 | Outpatient (CLI) | payer BC, OTHER, SELFPAY ==
--- NOTE | 2022-09-03 09:09 | US_ITS ---
STUDY: ABDOMINAL ULTRASOUND - ELASTOGRAPHY REASON FOR VISIT: Female, 47 years old. Fatty infiltration of the liver. TECHNIQUE: Liver stiffness measurements were obtained on a [employer] RS 85 ultrasound machine using a CA 1-7 probe following the SRU guidelines. 3 measurements were obtained using a 2-D-SWE method. The IQR/M was 21% suggesting a quality data set. TECHNICAL QUALITY: Adequate. COMPARISON: Comparison is made with prior study 04/23/2022. FINDINGS: Liver: Hepatomegaly and fatty infiltration of the liver. Median liver stiffness measured 6.5 kPa. US/Elastography Parenchyma/Organ IMPRESSION: Liver stiffness measures 6.5 kPa compatible with F2-F3 (Mild to moderate liver fibrosis) Metavir score. Electronically Signed: Adán East MD at 10:50 EST ,
--- NOTE | 2022-09-03 09:09 | US_ITS ---
STUDY: ABDOMINAL ULTRASOUND - RIGHT UPPER QUADRANT REASON FOR VISIT: Female, 47 years old . Fatty infiltration of the liver. TECHNIQUE: Ultrasound evaluation of the right upper quadrant was performed with real-time and static bolden-scale imaging. TECHNICAL QUALITY: Adequate. COMPARISON: Comparison is made with prior examination 04/23/2022. FINDINGS: Liver: The liver is enlarged and measures 20.3 cm. There is increased echogenicity consistent with fatty infiltration. The bile ducts are within normal limits. There is hepatic color flow. The direction of portal flow is hepatopetal. There is no demonstrated mass lesion. Gallbladder: Normal distended gallbladder. The gallbladder wall measures 2.8 mm. There is a negative sonographic Shaver''s sign. There is no pericholecystic fluid. There is a solitary echogenic gallstone within the gallbladder. This measures 8.3 mm. Common Bile Duct (C.B.D.): The common bile duct measures 3.8 mm. Pancreas: Normal size of the head, body and tail of the pancreas. There is normal echogenicity of the pancreas. There is no demonstrated pancreatic mass or cyst. Right Kidney: Normal size of the right kidney. The right kidney measures 11.8 cm x 4.6 cm x 5.6 cm. Normal renal cortex. The right cortex measures 1.4 cm. 1.6 cm x 1.6 cm x 1.8 cm right renal cyst. There is no right hydronephrosis. US/Abdomen Limited IMPRESSION: Hepatomegaly and fatty infiltration of the liver. Solitary gallstone. Small right renal cyst. Electronically Signed: Adán East MD at 10:48 EST ,
[2022-09-03 11:28] LABS: AST(SGOT) 12 U/L (15-37); Alanine Aminotransfer ALT/SGPT 26 U/L (13-56); Anion Gap 9 (5-15); BUN 16 mg/dL (7-18); BUN/Creat Ratio 26.3 RATIO (10-20); Calcium,Total 9.5 mg/dL (8.5-10.1); Chloride 100 mmol/L (98-107); Creatinine, Serum 0.61 mg/dL (0.55-1.02); EST Glomerular Filtration Rate 113 mL/min (>60); Est Glom Filt Rate - Afr Amer 137 mL/min (>60); Glucose 142 mg/dL (74-106); Potassium 3.6 mmol/L (3.5-5.1); Sodium Level 137 mmol/L (136-145)
[2022-09-03 14:50] LABS: Hemoglobin A1c 6.9 % (3.8-5.6)
== END | disposition home or self-care (01) ==
PROVIDERS: PCP Internal Medicine; Referring Provider Internal Medicine Gastroenterology; Visit Provider Internal Medicine Gastroenterology
DX: E11.9 Type 2 diabetes mellitus without complications (principal); I10 Essential (primary) hypertension; E78.2 Mixed hyperlipidemia; K76.0 Fatty (change of) liver, not elsewhere classified
CPT/HCPCS: 36415; 76705; 76981; 80048; 83036; 84450; 84460

== ENCOUNTER 2022-10-28 14:24 | Emergency (ER) | payer BC, OTHER, SELFPAY ==
[2022-10-28 14:25] VITALS: BP 175/91; PULSE 102; RESP 16; TEMP 35.9; O2SAT 97; BMI 40.1
--- NOTE | 2022-10-28 15:00 | EX.ED.VIS.HA ---
HPI History of Present Illness Chief Complaint: Headache Informant: patient Narrative Narrative: Waxing and waning headache for the past 13 days, history of migraines. Photophobia. No current aura. No current nausea or vomiting. She is on Maxalt took it today with no relief. Has been previous Emergency Department years ago for headaches reported treated with Phenergan and Toradol with improvement. Denies recent head injuries denies fevers. She does follow neurology. Prior similar symptoms: Yes PFSH PFSH Medical History Acute streptococcal pharyngitis Anemia Anxiety and depression Arthritis Chronic diarrhea Chronic neck and back pain Diabetes Difficulty balancing Fatty liver disease, nonalcoholic Flu vaccine need GERD (gastroesophageal reflux disease) History of breast lump History of kidney stones Hypertension Knee pain Menstrual irregularity Migraines Morbid obesity ELVIS (obstructive sleep apnea) Osteoarthritis Pectus excavatum Raynauds disease Severe headache Shoulder pain Sleep apnea Type 2 diabetes mellitus Home Medications duloxetine 30 mg capsule,delayed release 90 mg PO DAILY 07/01/16 [History Last Taken 10/11/21 06:30] rizatriptan 10 mg disintegrating tablet 10 mg PO PRN PRN Migraine Symptoms 07/01/16 [History Last Taken 10/10/21 08:00] biotin 1 mg capsule 1 mg PO DAILY 10/18/18 [History Last Taken Unknown] cholecalciferol (vitamin D3) 25 mcg (1,000 unit) capsule 1,000 unit PO DAILY 10/18/18 [History Last Taken Unknown] magnesium 250 mg tablet 250 mg PO DAILY 10/18/18 [History Last Taken Unknown] omega-3 fatty acids 1,000 mg capsule (Fish Oil Concentrate) 1,000 mg PO DAILY 10/18/18 [History Last Taken Unknown] valerian root 100 mg capsule 100 mg PO QHS 10/18/18 [History Last Taken Unknown] vitamin A palmitate 3,000 mcg (10,000 unit) tablet 10,000 unit PO DAILY 10/18/18 [History Last Taken Unknown] vitamin B complex 2 ea PO DAILY 05/15/19 [History Last Taken Unknown] ascorbic acid (vitamin C) 500 mg capsule mg PO 09/03/21 [History Last Taken Unknown] blood sugar diagnostic (Accu-Chek Guide test strips) #10 ea 09/03/21 [History Last Taken Unknown] cranberry fruit concentrate 250 mg chewable tablet (Azo Cranberry) 250 mg PO TID 09/03/21 [History Last Taken Unknown] duloxetine 60 mg capsule,delayed release 60 mg PO DAILY 09/03/21 [History Last Taken 10/11/21 06:30] lancets (Accu-Chek Fastclix Lancet Drum) #100 ea 09/03/21 [History Last Taken Unknown] metformin 1,000 mg tablet,extended release 24hr 1,000 mg PO BID 3 months #180 tabs 09/03/21 [Rx Last Taken 10/11/21 06:30] vitamin E 268 mg (400 unit) capsule 800 unit PO DAILY #60 caps 11/04/21 [Rx Last Taken Unknown] CoQ10 PO 1XD 03/05/22 [History Last Taken Unknown] empagliflozin 10 mg tablet (Jardiance) 10 mg PO DAILY 03/05/22 [History Last Taken Unknown] norethindrone (contraceptive) 0.35 mg tablet 0.35 mg PO DAILY #84 tabs 04/25/22 [Rx Last Taken Unknown] ursodiol 300 mg capsule 300 mg PO DAILY #30 caps 06/30/22 [Rx Last Taken Unknown] acetaminophen 650 mg tablet,extended release (Tylenol Arthritis Pain) 650 mg PO Q12H 07/10/22 [History Last Taken Unknown] celecoxib 200 mg capsule (Celebrex) 200 mg PO BID 07/10/22 [History Last Taken Unknown] rimegepant 75 mg disintegrating tablet (Nurtec ODT) 75 mg PO ONCE PRN 07/10/22 [History Last Taken Unknown] ropinirole 0.25 mg tablet 0.25 mg PO QHS #30 tabs 09/29/22 [Rx Last Taken Unknown] losartan 50 mg tablet 50 mg PO DAILY #90 tabs 10/13/22 [Rx Last Taken Unknown] metoprolol tartrate 25 mg tablet 25 mg PO BID #180 tabs 10/28/22 [Rx Last Taken Unknown] Allergy/AdvReac Type Severity Reaction Status Date / Time adhesive tape [paper tape] Allergy Unknown Other Verified 10/28/22 14:25 azithromycin [From Zithromax] Allergy Hives Verified 10/28/22 14:25 diazepam [From Valium] AdvReac Other Verified 10/28/22 14:25 lisinopril AdvReac Other Verified 10/28/22 14:25 prednisone AdvReac Other Verified 10/28/22 14:25 water proof tape Allergy Unknown hives Uncoded 10/28/22 14:25 Family History Other CVA (cerebral vascular accident) Cancer Depression Diabetes Hypertension Sleep apnea Surgical History History of cervical spinal surgery History of fusion of cervical spine History of liver biopsy Social History Smoking Status: Never smoker alcohol intake: never substance use type: does not use what type of physical activity do you participate in: none ROS ROS ED Constitutional Constitutional ED: Denies chills, fever(s) or sweats Eyes Eyes: Denies change in vision ENT ENT ED: Denies dysphagia or sore throat Cardiovascular Cardiovascular: Denies chest pain, leg edema, palpitations or racing heartbeat Respiratory/Chest Respiratory/Chest: Denies cough, dyspnea or dyspnea on exertion Gastrointestinal Gastrointestinal: Denies abdominal pain, diarrhea, nausea or vomiting Genitourinary Genitourinary ED: Denies dysuria, hematuria or urinary frequency Musculoskeletal Musculoskeletal: Denies back pain, extremity pain or neck pain Integumentary Denies rash or wounds Neurologic Neurologic: Reports headache(s); Denies paresthesias or weakness EXAM Physical Exam Const Vital Signs: 10/28/22 14:25 Temperature 96.7 F L Temperature Source Temporal Pulse Rate 102 H Respiratory Rate 16 Blood Pressure 175/91 H Blood Pressure Mean 119 Pulse Ox 97 Oxygen Delivery Method Room Air Positive well nourished and well developed Constitutional Narrative: Nontoxic, sugar over eyes General Appearance ED: well developed HEENT Reports moist mucous membranes normocephalic and atraumatic Eyes PERRL, EOMs intact bilaterally and conjunctivae normal Eyes Narrative: No nystagmus General Eye ED: Yes normal appearance of both eyes Neck no lymphadenopathy, supple and no meningeal signs General: Negative for tenderness Chest Wall Chest: Negative for tenderness Resp normal respiratory effort and normal air movement Effort and Inspection: symmetric chest movement; Negative for respiratory distress Cardio regular rate, regular rhythm and no murmurs Peripheral Pulses: pulses 2+ throughout GI normal to inspection, nondistended, normoactive bowel sounds and non-tender Palpation: Negative for guarding or rebound tenderness present Back/Spine no CVA tenderness and no thoracic nor lumbar tenderness Extremity normal to inspection General Extremety ED: Negative for edema or tenderness General Extremity: Negative for edema Neuro oriented x3, CN's II-XII intact bilaterally and no sensory deficits noted Sensorium / Orientation: awake and alert Skin no rashes or lesions noted and no wounds MDM MDM MDM Narrative Medical decision making narrative: Interventions / MDM: Differential diagnosis: Migraine headache, atypical headache Diagnosis considered but do not suspect: Meningitis however no focal deficits. Intracranial hemorrhage however waxing waning symptoms no sudden onset no trauma. My EKG interpretation: N/A Imaging independently reviewed and interpreted by myself: N/A External documents reviewed: N/A Test considered but not ordered:N/A ED course: Vital signs stable no focal deficits. No meningismus. Patient IV established given migraine cocktail Reglan Toradol and Benadryl. She was observed, reevaluation significantly improved symptoms. She will be discharged with outpatient follow-up. Re-evaluation: stable and improved Disposition discussed with patient/family/significant other: Patient and mother Case discussed with consulting clinician: N/A Discharge Plan Triage Chief Complaint: Headache ED Provider: Adin Sheridan Dx/Rx/DC Orders Clinical Impression: Headache, History of migraine Instructions: ED, Migraine (Classical) Prescriptions: No Action cholecalciferol (vitamin D3) 1,000 UNIT Capsule 1,000 unit PO DAILY vitamin A palmitate 10,000 unit tablet 10,000 unit PO DAILY valerian root 100 mg capsule 100 mg PO QHS omega-3 fatty acids [Fish Oil Concentrate] 1,000 mg capsule 1,000 mg PO DAILY biotin 1 mg capsule 1 mg PO DAILY magnesium 250 mg tablet 250 mg PO DAILY duloxetine 60 mg capsule,delayed release(DR/EC) 60 mg PO DAILY (DME) Accu-Chek Guide test strips Strip See Rx Instructions .ROUTE .MEDSUPPLY Qty: 10 Rx Instructions: As directed (DME) lancets [Accu-Chek Fastclix Lancet Drum] Misc See Rx Instructions .ROUTE .MEDSUPPLY Qty: 100 Rx Instructions: As directed Azo Cranberry 250 mg tablet,chewable 250 mg PO TID ascorbic acid (vitamin C) 500 mg capsule PO metformin 1,000 mg tablet extended release 24hr 1,000 mg PO BID 90 Days Qty: 180 1RF vitamin E 400 unit capsule 800 unit PO DAILY Qty: 60 3RF CoQ10 200 mg tablet PO 1XD Jardiance 10 mg tablet 10 mg PO DAILY celecoxib [Celebrex] 200 mg capsule 200 mg PO BID Nurtec ODT 75 mg tablet,disintegrating 75 mg PO ONCE PRN Rx Instructions: as a single dose acetaminophen [Tylenol Arthritis Pain] 650 mg tablet extended release 650 mg PO Q12H ursodiol 300 mg capsule 300 mg PO DAILY Qty: 30 11RF rizatriptan 10 MG tablet,disintegrating 10 mg PO PRN PRN (Reason: Migraine Symptoms) duloxetine 30 MG capsule 90 mg PO DAILY vitamin B complex 1 EACH tablet 2 ea PO DAILY norethindrone (contraceptive) 0.35 mg tablet 0.35 mg PO DAILY Qty: 84 2RF ropinirole 0.25 mg tablet 0.25 mg PO QHS Qty: 30 3RF Rx Instructions: administer 1-3 hours before bedtime losartan 50 mg tablet 50 mg PO DAILY Qty: 90 2RF metoprolol tartrate 25 mg tablet 25 mg PO BID Qty: 180 1RF Primary Care Provider: Rogers Bellamy Referrals: Rogers Bellamy MD [Primary Care Provider] - 1 Week if not improving Disposition Disposition: Home, Self Care Discharge Date/Time: 10/28/22 16:40
[2022-10-28] MEDS: Ketorolac 15 MG/ML Vial IV (15:46)
[2022-10-28] MEDS: 0.9% Normal Saline 1,000 ML 999 ML IV (15:46)
[2022-10-28] MEDS: DiphenhydrAMINE 50 MG/ML Syringe 25 MG IV (15:47)
[2022-10-28] MEDS: Metoclopramide 10 MG/2 ML Vial IV (15:49)
== END 2022-10-28 16:40 | disposition home or self-care (01) ==
PROVIDERS: Emergency Provider Emergency Medicine; PCP Internal Medicine; Visit Provider Emergency Medicine
DX: R51.9 Headache, unspecified (principal); E11.9 Type 2 diabetes mellitus without complications; I10 Essential (primary) hypertension; Z79.84 Long term (current) use of oral hypoglycemic drugs; Z79.899 Other long term (current) drug therapy
CPT/HCPCS: 96361; 96374; 96375; 99283; J7030; A4216

== ENCOUNTER → 2023-01-03 | Outpatient (CLI) | payer BC, OTHER, SELFPAY ==
[2023-01-03 10:38] LABS: Hemoglobin A1c 6.9 % (3.8-5.6)
[2023-01-03 10:48] LABS: Microalbumin,Random Urine 20.2 mg/L (NO RANGE EST.)
[2023-01-03 11:00] LABS: AST(SGOT) 12 U/L (15-37); Alanine Aminotransfer ALT/SGPT 24 U/L (13-56); Anion Gap 5 (5-15); BUN 14 mg/dL (7-18); BUN/Creat Ratio 24.3 RATIO (10-20); Calcium,Total 9.1 mg/dL (8.5-10.1); Chloride 103 mmol/L (98-107); Cholesterol 176 mg/dL (200); Creatinine, Serum 0.58 mg/dL (0.55-1.02); EST Glomerular Filtration Rate 120 mL/min (>60); Est Glom Filt Rate - Afr Amer 145 mL/min (>60); Glucose 153 mg/dL (74-106); High Density Lipoprotein 42 mg/dL; Potassium 4.1 mmol/L (3.5-5.1); Sodium Level 134 mmol/L (136-145); Thyroid Stim Hormone (TSH) 1.12 uIU/mL (0.358-3.74); Triglycerides 279 mg/dL; Very Low Density Lipoprotein 56 mg/dL (5-40)
[2023-01-05 08:23] LABS: Vitamin D,25 Hydroxy 49.2 ng/mL
== END | disposition home or self-care (01) ==
LOC: LAB 09:28
PROVIDERS: PCP Internal Medicine; Referring Provider Internal Medicine Endocrinology, Diabetes & Metabolism; Visit Provider Internal Medicine Endocrinology, Diabetes & Metabolism
DX: E11.9 Type 2 diabetes mellitus without complications (principal); E78.2 Mixed hyperlipidemia; E04.8 Other specified nontoxic goiter; E55.9 Vitamin D deficiency, unspecified
CPT/HCPCS: 36415; 80048; 80061; 82043; 82306; 83036; 84443; 84450; 84460

== ENCOUNTER → 2023-05-22 | Outpatient (CLI) | payer BC, OTHER, SELFPAY ==
[2023-05-22 17:03] LABS: AST(SGOT) 10 U/L (15-37); Alanine Aminotransfer ALT/SGPT 22 U/L (13-56); Anion Gap 7 (5-15); BUN 15 mg/dL (7-18); BUN/Creat Ratio 20.6 RATIO (10-20); Calcium,Total 9.3 mg/dL (8.5-10.1); Chloride 107 mmol/L (98-107); Creatinine, Serum 0.73 mg/dL (0.55-1.02); EST Glomerular Filtration Rate 92 mL/min (>60); Est Glom Filt Rate - Afr Amer 111 mL/min (>60); Glucose 222 mg/dL (74-106); Potassium 3.9 mmol/L (3.5-5.1); Sodium Level 141 mmol/L (136-145)
== END | disposition home or self-care (01) ==
LOC: LAB 15:34
PROVIDERS: PCP Internal Medicine; Referring Provider Internal Medicine Endocrinology, Diabetes & Metabolism; Visit Provider Internal Medicine Endocrinology, Diabetes & Metabolism
DX: E11.9 Type 2 diabetes mellitus without complications (principal); I10 Essential (primary) hypertension; E78.2 Mixed hyperlipidemia
CPT/HCPCS: 36415; 80048; 84450; 84460

== ENCOUNTER → 2023-09-02 | Outpatient (CLI) | payer BC, OTHER, SELFPAY ==
--- NOTE | 2023-09-02 09:40 | US_ITS ---
STUDY: ABDOMINAL ULTRASOUND - RIGHT UPPER QUADRANT; ELASTOGRAPHY REASON FOR VISIT: Female, 48 years old. Linear fibrosis. TECHNIQUE: Ultrasound evaluation of the right upper quadrant was performed with real-time and static bolden-scale imaging. Point quantification shear wave elastography was performed ([id number]). TECHNICAL QUALITY: Adequate. COMPARISON: Comparison is made with prior sonogram dated September 03, 2022. FINDINGS: Liver: The liver is enlarged measures 21.3 cm. There is normal echogenicity of the liver. The bile ducts are within normal limits. There is hepatic color flow. The direction of portal flow is hepatopetal. There is no demonstrated mass lesion. Median liver stiffness measured 6.5 kPa. Gallbladder: Normal distended gallbladder. The gallbladder wall measures 2.1 mm. There is a negative sonographic Shaver''s sign. There is no pericholecystic fluid. There is a solitary echogenic gallstone within the gallbladder. Common Bile Duct (C.B.D.): The common bile duct measures 3.7 mm. Pancreas: There is increased echogenicity of the pancreas. There is no demonstrated pancreatic mass or cyst. Right Kidney: Normal size of the right kidney. The right kidney measures 12.3 cm x 5.4 cm x 5.8 cm. Normal renal cortex. The right cortex measures 2.3 cm. There is a 1.6 cm x 1.5 cm x 1.2 cm cyst. There is no right hydronephrosis. US/ABD Limited w/ Elastography IMPRESSION: 1. Liver stiffness measures 6.5 kPa compatible with F2-F3 (Mild to moderate liver fibrosis) Metavir score. 2. Solitary gallstone. 3. Small right renal cyst. Electronically Signed: Adán East MD at 14:55 EST ,
[2023-09-02 11:03] LABS: Absolute Neutrophil Count 4.7 X10^3/uL (2.0-7.7); Basophil# 0.04 X10^3/uL; Basophil% 0.5 % (0-1); Eosinophil# 0.06 X10^3/uL; Eosinophils% 0.8 % (0-5); Hematocrit 41.9 % (37-47); Hemoglobin 14.3 g/dL (12.0-15.0); Lymphocyte % 30.1 % (19-41); Mean Corp Hgb Conc 34.1 g/dL (32-36); Mean Corpuscular Hgb 31.9 pg (27.0-32.0); Mean Corpuscular Volume 93.5 fL (81-99); Mean Platelet Vol. 9.3 fl (6.2-12.0); Monocyte# 0.54 X10^3/uL; Monocyte% 7.1 % (0-10); NRBC Flagged by Analyzer 0 % (0-5); Neutrophil # 4.65 X10^3/uL (2.7-7.7); Neutrophil % 60.8 % (47-70); Platelet Count 311 K/mm3 (150-450); RBC Distribution Width CV 12.4 % (11.6-14.6); RBC Distribution Width SD 42.7 fl (35.1-43.9); Red Blood Count 4.48 M/mm3 (4.2-5.4); White Blood Count 7.6 K/mm3 (4.4-11.0)
[2023-09-02 11:28] LABS: ALB/GLOB Ratio 0.9 RATIO (0.9-2.4); AST(SGOT) 19 U/L (15-37); Alanine Aminotransfer ALT/SGPT 23 U/L (13-56); Albumin, Serum 3.2 g/dL (3.2-5.0); Alkaline Phosphatase 76 U/L (45-117); Anion Gap 4 (5-15); BUN 17 mg/dL (7-18); BUN/Creat Ratio 29.9 RATIO (10-20); Calcium,Total 9.3 mg/dL (8.5-10.1); Chloride 107 mmol/L (98-107); Creatinine, Serum 0.57 mg/dL (0.55-1.02); EST Glomerular Filtration Rate 122 mL/min (>60); Est Glom Filt Rate - Afr Amer 147 mL/min (>60); Globulin 3.5 g/dL (2.2-4.2); Glucose 144 mg/dL (74-106); Potassium 4.1 mmol/L (3.5-5.1); Protein, Total 6.7 g/dL (6.4-8.2); Sodium Level 140 mmol/L (136-145)
== END | disposition home or self-care (01) ==
PROVIDERS: PCP Internal Medicine; Referring Provider Internal Medicine Gastroenterology; Visit Provider Internal Medicine Gastroenterology
DX: K74.00 Hepatic fibrosis, unspecified (principal)
CPT/HCPCS: 36415; 76705; 76981; 80053; 85025

== ENCOUNTER → 2023-09-19 | Outpatient (CLI) | payer BC, OTHER, SELFPAY ==
--- OUTSIDE RECORDS SUMMARY | 2023-09-19 10:14 | XMS RPT_ITS | CCD ---
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 Name Role Phone Tico Saavedra MD Primary Care Provider Unavailable Primary Care Provider UnavailSADIE Morfin Attending Unavailable FROILAN HENAO Referring Unavailable FROILAN HENAO Referring Unavailable TICO SAAVEDRA Primary Care Unavailable FROILAN HENAO Attending Unavailable TICO SAAVEDRA Primary Care Unavailable FROILAN HENAO Attending Unavailable SADIE RAMOS Attending Unavailable RENA ANDERSEN Attending Unavailable SADIE RAMOS Referring Unavailable SADIE RAMOS Referring Unavailable Tico Saavedra MD Primary Care Provider Allergies Allergy Classification Reported Allergen(s) Allergy Type Date of Onset Reaction(s) Facility (12 sources) Azithromycin; Translations: [AZITHROMYCIN] Drug Allergy 04-20-2006 [facility] Work Phone: (12 sources) diazePAM; Translations: [DIAZEPAM] Drug Allergy 12-19-2011 Other: See Comments [facility] (12 sources) Lisinopril; Translations: [LISINOPRIL] Drug Allergy 02-12-2009 [facility] Work Phone: (12 sources) predniSONE; Translations: [PREDNISONE] Drug Allergy 12-19-2011 Other: See Comments [facility] Medications Completed/Discontinued Medications Medication Drug Class(es) Dates Sig (Normalized) Sig (Original) celecoxib 200 mg oral capsule (4 sources) Nonsteroidal Anti-inflammatory Drug Start: 01-11-2023 take 1 capsule by mouth twice daily as needed celecoxib (CELEBREX) 200 mg capsule TAKE 1 CAPSULE BY MOUTH TWICE A DAY NEEDED FOR 30 DAYS 0 01/11/2023 Active Problems Active Problems Problem Classification Problem Date Documented Date Episodic/Chronic Administrative/socia l admission (1 source) Stress at work; Translations: [Other physical and mental strain related to work] Episodic Delirium, dementia, and amnestic and other cognitive disorders (1 source) Cognitive disorder; Translations: [Unspecified mental disorder due to known physiological condition] 04-13-2023 Chronic Essential hypertension (11 sources) Essential hypertension; Translations: [Essential (primary) hypertension] Onset: 03-09-2012 03-09-2012 Chronic Headache; including migraine (20 sources) Migraine without aura, not refractory ; Translations: [Migraine without aura, not intractable, without status migrainosus] Onset: 03-09-2012 Chronic Menstrual disorders (11 sources) Menorrhagia; Translations: [Excessive and frequent menstruation with regular cycle] Onset: 03-10-2013 03-10-2013 Chronic Miscellaneous mental health disorders (1 source) Psychophysiologic insomnia; Translations: [Psychophysiologic insomnia] Chronic Other hereditary and degenerative nervous system conditions (2 sources) Impaired cognition; Translations: [Mild cognitive impairment, so stated] Chronic Other hereditary and degenerative nervous system conditions (1 source) Mild cognitive impairment, so stated; Translations: [Cognitive impairment, mild, so stated] Onset: 08-22-2022 Chronic Residual codes; unclassified (13 sources) Obstructive sleep apnea syndrome; Translations: [Obstructive sleep apnea (adult) (pediatric)] Onset: 08-14-2013 08-14-2013 Chronic Residual codes; unclassified (4 sources) Memory impairment; Translations: [Other amnesia] Episodic Past or Other Problems Problem Classification Problem Date Documented Da te Episodic/Chronic Calculus of urinary tract (11 sources) History of calculus of kidney; Translations: [Personal history of urinary calculi] Onset: 03-10-2013 03-10-2013 Episodic Headache; including migraine (11 sources) Chronic daily headache; Translations: [Chronic daily headache] Onset: 01-14-2022 Episodic Other screening for suspected conditions (not mental disorders or infectious disease) (2 sources) Magnetic resonance imaging of brain abnormal; Translations: [Other abnormal findings on diagnostic imaging of central nervous system] Onset: 02-13-2023 Episodic Residual codes; unclassified (3 sources) Unspecified symptoms and signs involving cognitive functions and awareness; Translations: [Other signs and symptoms involving cognition] Onset: 02-13-2023 Episodic Residual codes; unclassified (1 source) Other amnesia; Translations: [Memory impairment] Onset: 02-13-2023 Episodic Results Test Name Value Interpretation Reference Range Facil ity Vital Signs Date Time Vital Sign Value Performing Clinician Tremaine nam 02-13-2023 14:14-0400 Body weight 131.09 kg Sadie Ramos MD Work Phone: [facility] 02-13-2023 14:14-0400 Diastolic blood pressure 71 mm[Hg] Sadie Ramos MD Work Phone: [facility] 02-13-2023 14:14-0400 Heart rate 77 /min Sadie Ramos MD Work Phone: [facility] 02-13-2023 14:14-0400 Systolic blood pressure 126 mm[Hg] Sadie Ramos MD Work Phone: [facility] Encounters Encounter Date Encounter Type Care Provider Facility Start: 06-26-2023 End: 06-26-2023 ambulatory FROILAN HENAO Facility:[facility] Start: 05-02-2023 End: 05-02-2023 ambulatory SADIE RAMOS Facility:[facility] Start: 04-13-2023 End: 04-13-2023 ambulatory Rena Andersen PhD Work Phone: Neurology Procedures Date Procedure Procedure Detail Performing Clinician Start: 08-22-2022 Mri brain brain stem w/o contrast material Froilan Henao DO Work Phone: Start: 01-13-2022 Adult depression screening assessment Froilan Henao DO Work Phone: Plan of Treatment Date Care Activity Detail Author Start: 03-15-2024 Urine microalbumin profile [facility] Start: 02-14-2024 BP CONTROLLED (<130/80) BP CON TROLLED (<130/80) [facility] Start: 05-15-2023 Covid-19 Vaccine () Covid-19 Vaccine () [facility] Start: 05-15-2023 Influenza vaccination [facility] Start: 02-13-2023 End: 04-15-2023 Cobalamin (Vitamin B12) [Mass/volume] in Serum or Plasma [facility] Work Phone: Immunizations Immunization Date Immunization Notes Care Provider Dick eastman 07-10-2022 influenza virus vaccine, unspecified formulation Mri (I-Stat/1.5t) Work Phone: [facility] 03-15-2014 tetanus toxoid, redu chuyita diphtheria toxoid, and acellular pertussis vaccine, adsorbed Froilan Henao DO Work Phone: [facility] Work Phone: Payers Date Payer Category Payer Unknown [employer] PPO [id number] 2021-Present [phone] [address] [place] [address] PPO [id number] 2021 Unknown [id number] [address] [facility] CHO[facility] [employer] [id number] 2021-Present [phone] [address] [place] [address] HMO [id number] 2019 Unknown [id number] 2019 Unknown [id number] Social History Date Type Detail Facility Start: 12-19-2011 Tobacco smoking stat us [facility] Never smoked tobacco [facility] Start: 07-12-2021 End: 04-30-2022 Alcohol intake Current non-drinker of alcohol (finding) [facility] Start: 1975 Sex Assigned At Female [facility] Start: 12-19-2011 Tobacco use and exposure Smoke less tobacco non-user [facility] Start: 08-19-2022 End: 02-13-2023 History of Social function [facility] Start: 08-19-2022 End: 02-13-2023 Tobacco use panel [facility] Adult Depression Screening Assessment 0 [facility] Start: 08-01-2021 Gender identity Identifies as female gender (finding) [facility] Start: 08-01-2021 Sexual orientation Heterosexual (yomaira rangel) [facility] Clinical Notes 01-16-2014 to 06-26-2023 Rena Andersen, PhD - 04/13/2023 9:24 AM EDTTelephone Encounter - Roxanne Colt - 02/16/2023 8:30 AM EDTPatient Vaishnavi Mazariegos - 02/13/2023 2:20 PM EDT Note Date & Type Note Facility 06-26-2023 Note HNO ID: [id number] Author: Froilan Henao, DO Service: ? Author Type: Physician Type: Progress Notes Filed: 06/26/2023 4:27 PM Note Text: Head[facility] Center - VIRTUAL Follow-up Visit ASSESSMENT: 47 year old female with history significant for migraine with aura, migraine aura without headache, abdominal migraine, ELVIS, HTN, DM, C5-6 fusion, SIMMONS, kidney stones, with chronic daily headache from chronic tension type headache mixed with episodic migraine at prior visits, now improved significantly to infrequent episodic migraine and tension type headache. PLAN: (Please see typed patient instructions for detailed instructions) ---> Acute Treatment: -Maxalt vs. Ubrelvy. ---> Preventive Treatment: -Cymbalta 90 mg daily per her prescriber. -Metoprolol 25 mg bid per her prescriber. -Losartan 50 mg daily per her prescriber. -Supplements discussed. ---> Follow-up: 12 months. --------- -- Last visit: 08/20/22 Interval Headache Hx: Doing very good. 56 days without a migraine. Mostly headache free days. [facility] who did not have a concern based on MRI. New Labs/Imaging: Impression IMPRESSION: Prominence of the extra-axial spaces overlying the bilateral parietal lobes thought to be due to bilateral parietal lobe volume loss given age, slightly progressed since 2013. Consider correlation with clinical parameters and/or MRI of the brain with the ADNI protocol for quantitative volumes on main campus if clinically indicated. Single focus of nonspecific T2/FLAIR hyperintensity in the right frontal centrum semiovale which is nonspecific and unchanged, but may be due to remote insult/minimal chronic microvascular change. Printing Machine Operator: PSCB Transcribe Date/Time: Aug 22 2022 6:26P Dictated by : JO KATHLEEN MD This examination was interpreted and the report reviewed and electronically signed by: JO KATHLEEN MD on Aug 22 2022 6:44PM EST Results-Findings * * *Final Report* * * DATE OF EXAM: Aug 22 2022 4:42PM [facility] [id number] - MRI BRAIN WO IVCON / PROCEDURE REASON: multiple diagnoses * * * * Physician Interpretation * * * * EXAMINATION: MRI BRAIN WO IVCON CLINICAL HISTORY: Mild cognitive impairment TECHNIQUE: Routine noncontrast MRI protocol including diffusion images. MQ: [id number] COMPARISON: MR brain 08/15/14. RESULT: Acute Change: There is no evidence of restricted diffusion to suggest an acute infarct. Mass Lesion/ Mass Effect: No evidence of an intracranial mass or extra-axial fluid collection. No significant mass effect. Chronic Change: Again seen is a single focus of T2/FLAIR hyperintensity in the right frontal centrum semiovale, not significant changed since the prior examination, likely due to minimal chronic white facet change/remote insult given appearance and lack of new lesions. Parenchyma: There is prominence of the extra-axial spaces overlying the bilateral parietal lobes, thought to be due to prominent bilateral parietal lobe volume loss given age rather than subdural hygromas, slightly progressed since 2013. The brain parenchyma is otherwise within normal limits of signal intensity and morphology. Ventricles: Normal caliber and morphology. Skull Base: Hypothalamic and pituitary region are grossly normal. Craniocervical junction is normal. No significant marrow replacement process. Vasculature: Major intracranial arterial structures, and dural venous sinuses show typical flow void, suggesting patency by spin echo criteria. Other: The visualized paranasal sinuses and mastoid air cells are clear. The orbits and extracranial soft tissues are unremarkable. HEADACHE SCORES: Headache Questions 01/13/2022 08/19/2022 06/26/2023 ER visits since last office visit: 0 0 0 Hospital stays since last office visit 0 0 0 Limited ADLs in the last month: 1 0 0 Days missed from work or school in the last month: 1 0 0 Days headache pain free in the last month: 0 24 0 Days per month with ALL of the following symptoms - decreased productivity, light sensitivity and nausea: 3 0 0 Initial improvement of headache after botox injection at last visit: Not applicable, I did not have a botox injection at my last visit Not applicable, I did not have a botox injection at my last visit Not applicable, I did not have a botox injection at my last visit PRN medication usage in the last month: 3 2 0 Patient impression of improvement since last visit: Much improved Minimally improved - HIT-6 01/13/2022 08/19/2022 06/26/2023 HIT-6 52 (Moderate impact) 60 (Severe impact) 49 (Little or no impact) ABBI - 2/7 SCORES 01/13/2022 08/19/2022 06/26/2023 ABBI-2 Score 0 2 2 Migraine Specific QOL - Higher scores indicate better HRQL 08/19/2022 06/26/2023 Role Function-Restrictive Transformed Score (range: 0-100) 80 100 Role Function-Preventive T (more content not included)... [facility] 05-02-2023 Note HNO ID: [id number] Author: Sadie Ramos MD Service: ? Author Type: Physician Type: Progress Notes Filed: 05/02/2023 3:09 PM Note Text: Neurology Return, [facility], virtual Patient's clinic evaluation was scheduled as a virtual visit using [employer] platform. I have communicated my name and active licensure. The patient's identity and physical location were verified at the time of this visit. Either the patient or their legal sales representative gas service has been informed of the risks and benefits of -- and alternatives to -- treatment through a remote evaluation and consents to proceed with the evaluation remotely. Ayden Stephenson consented to the video evaluation and its limitations. Based on this evaluation it may be necessary for patient to schedule a follow up evaluation with myself or other providers for formal physical examination and if necessary,other studies. Patient was present for the visit alone. Ayden Stephenson is a 47 year old female whom we initially saw on 02/13/2023 for cognitive concerns. Please see our consultation note for detail. PMH of chronic headache, mixture of tension and migraine, HTN, GERD, DM2, Raynaud's, depression and anxiety, ELVIS, SIMMONS Patient reported sporadic memory loss in the last 10 months, but not really worsened. She wonders if it has to do with her poor sleep and stress. She has sleep apnea, compliant with BiPAP, but still wakes up tired. She also has sleep maintenance insomnia which she uses doxepin that helps. She is diagnosed with SIMMONS, and her liver condition can make her tired. [facility] Her MRI showed increase in prominence of space above her bilateral parietal area, and concern for possible atrophy. This was already present in 2013 MRI, slightly increased in 2022 MRI. However, there is no report of worsening of functions, including her performance at a high stress job. Her headache has also improved. Suspect her cognitive changes are related to sleep and stress, and the finding of the MRI is incidental, but it will be beneficial to obtain a baseline of her cognitive function. She will also benefit from management of her insomnia and stress. At her last visit, we had recommended: Sleep behavioral medicine for insomnia management Follow up with her sleep provider to ensure adequate treatment of sleep apnea Optimal behavioral health management for stress, defer to her psychiatrist for potential therapy Neuropsychology testing for cognitive baseline Get B12 level B12 was 340 on 02/13/2023 Neuropsychology study was performed on 04/13/2023. SUMMARY/IMPRESSIONS: Ms. Ayden Stephenson is a 47 year old, White female with longstanding cognitive ability in the average range. Results demonstrate variability in attention in an otherwise intact cognitive profile. Performance was impaired on sustained attention task and an inhibition task. She reports mild symptoms of anxiety. 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 The deficit observed is non-specific in that it can be present in patients with mood symptoms, poor sleep, increased stressors, and migraine related pain, all of which are present for Ms. Stephenson. RECOMMENDATIONS From a cognitive perspective, while she does not meet criteria for ADHD, I suspect some of the compensatory strategies offered for individuals with ADHD may be beneficial to her. I will send her a list of these strategies. Physical exercise is known to benefit cognition and is encouraged, as approved by patient's physician team This evaluation will serve as a cognitive baseline for any future comparisons. She may benefit from meeting with a psychologist to better manage mood symptoms and develop other coping strategies for her stressors. Patient-Reported 02/11/2023 Where are you currently living? Home / Private residence Are you using any community resources to help care for yourself? No Has your caregiver accompanied you today? No Did you receive help completing this questionnaire? No If you received help, could you have completed this questionnaire on your own? N/A - I did not receive any help Activities of Daily Living (ADL) No flowsheet data found. PROMIS-10 PROMIS 10 02/11/2023 08/19/2022 In general, would you say your health is: Good Very good In general, would you say your quality of life is: Very good Very good In general, how would you rate your physical health? Good Very good In general, how would you rate your mental health, including your mood and your ability to think? Very good Very good In general, how would you rate your satisfaction with your social activities and relationships? Very good Very good To what extent are you able to carry out your everyday physical activities such as walking, climbing stairs, carrying groceries, or moving a chair? Completely Mostly In general, please rate ho (more content not included)... [facility] 04-13-2023 Note HNO ID: [id number] Author: Rena Andersen, PhD Service: ? 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 This neuropsychological assessment is part of a multidisciplinary evaluation conducted in the [facility]. The assessment consisted of a brief interview with the patient and collateral (when available), neurobehavioral examination, and standardized neuropsychological assessment.Given the targeted nature of the referral, details of the patient's history, which are already known to the referral source, are only briefly summarized. Please see patient medical records for more detailed information. RELEVANT BACKGROUND: Ms. Ayden Stephenson is a 47 year old, White female referred for a neuropsychological evaluation in the context of cognitive concerns. The patient was accompanied to the evaluation by her mother. Cognitive changes reportedly began insidiously approximately 1 year ago and have worsened over time. REVIEW OF COGNITIVE FUNCTIONS: She forgets details of conversations with benefit from cues and is more reliant on notes. She endorses word retrieval difficulty. She forgot her name once and it took about 10 minutes. She may forget why she entered a room. She reports occasional difficulty focusing. She believes there are fluctuations in cognition but is unsure of associations with other symptoms. FUNCTIONAL STATUS: Driving: Independent. Medications: always had an alarm Finances: with her . OTHER RELEVANT HPI Psychiatric History: Onset of depression about 20 years ago. Current mood is described as pretty good. Substance Use: none Sleep: School year- 8.30-5.15 am. She has ELVIS and Bipap. She rare instances of falling. She may always feel drowsy in the day, which has been longstanding Pain: She is followed by headache clinic for migraines. Last one was 7 days. Sensory Problems: She reports diminished hearing in her right ear Family Medical History: none contributory. Other factors that can impact cognition: Covid-19 in October 2019- stayed off work for a week. PMH of chronic headache, mixture of tension and migraine, HTN, GERD, DM2, Raynaud's, depression and anxiety, ELVIS, SIMMONS. She does not report any head injuries with loss of consciousness. She reports significant fatigue. For example, she recently did well when volunteering at a camp for a week, came home and crashed (lay in bed due to fatigue) for 3+ days. SOCIAL/ACADEMIC/OCCUPATIONAL BACKGROUND: Development: No complications or developmental delays Educational History: 20 years, Denied early attention problems or learning difficulties. 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 She reports stress related to management turnover. Social History: The patient is for 11 years. RECENT WORK-UP: [facility] 02/13/2023 MOCA TOTAL SCORE 27 out of 30 BEHAVIORAL OBSERVATIONS: Mood: pleasant Affect: broad Rapport: amicable Speech: fluent Comprehension: good Thought Processes: logical Motor: normal Sensory Problems: reduced vision, glasses Results are considered an accurate reflection of the patient's current cognitive status ? COGNITIVE RESULTS: Estimated premorbid abilities: Based on a combination of her single word reading performance and demographic variables, Ms. Owenss premorbid intellectual abilities are estimated to be in the average range. Attention/Processing Speed: Auditory attention span was high average. Performance on a measure of visuomotor processing speed and sequencing was high average. Processing speed on a digit-symbol recovery collector task was average. Speeded color naming was average, and speeded word reading was average. Performance on a sustained attention task showed poor vigilance and inattentiveness. Executive functioning: Mental flexibility and visuomotor set shifting was high average. Verbal response inhibition was extremely low, and the same task with a set switching component was average. Qualitatively, the supervisor irrigation observed the patient to slow down on the first task due to perceived level of difficulty. Language: Confrontation naming was intact. Lexical verbal fluency was high average. Semantic verbal fluency was average. Learning and Memory: Word list recall was average. Following a delay, word recall was average, and recognition of the words was within normal limits. Learning of geometric shapes was superior with high average total recall. Following a delay, recall of the shapes was superior with 100% retention, and recognition was within normal limits Visuospati (more content not included)... 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 This neuropsychological assessment is part of a multidisciplinary evaluation conducted in the [facility]. The assessment consisted of a brief interview with the patient and collateral (when available), neurobehavioral examination, and standardized neuropsychological assessment.Given the targeted nature of the referral, details of the patient's history, which are already known to the referral source, are only briefly summarized. Please see patient medical records for more detailed information. RELEVANT BACKGROUND: Ms. Ayden Stephenson is a 47 year old, White female referred for a neuropsychological evaluation in the context of cognitive concerns. The patient was accompanied to the evaluation by her mother. Cognitive changes reportedly began insidiously approximately 1 year ago and have worsened over time. REVIEW OF COGNITIVE FUNCTIONS: She forgets details of conversations with benefit from cues and is more reliant on notes. She endorses word retrieval difficulty. She forgot her name once and it took about 10 minutes. She may forget why she entered a room. She reports occasional difficulty focusing. She believes there are fluctuations in cognition but is unsure of associations with other symptoms. FUNCTIONAL STATUS: Driving: Independent. Medications: always had an alarm Finances: with her . OTHER RELEVANT HPI Psychiatric History: Onset of depression about 20 years ago. Current mood is described as pretty good. Substance Use: none Sleep: School year- 8.30-5.15 am. She has ELVIS and Bipap. She rare instances of falling. She may always feel drowsy in the day, which has been longstanding Pain: She is followed by headache clinic for migraines. Last one was 7 days. Sensory Problems: She reports diminished hearing in her right ear Family Medical History: none contributory. Other factors that can impact cognition: Covid-19 in October 2019- stayed off work for a week. PMH of chronic headache, mixture of tension and migraine, HTN, GERD, DM2, Raynaud's, depression and anxiety, ELIVS, SIMMONS. She does not report any head injuries with loss of consciousness. She reports significant fatigue. For example, she recently did well when volunteering at a camp for a week, came home and crashed (lay in bed due to fatigue) for 3+ days. SOCIAL/ACADEMIC/OCCUPATIONAL BACKGROUND: Development: No complications or developmental delays Educational History: 18 years, Denied early attention problems or learning difficulties. 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 She reports stress related to management turnover. Social History: The patient is for 11 years. RECENT WORK-UP: [facility] 02/13/2023 MOCA TOTAL SCORE 27 out of 30 BEHAVIORAL OBSERVATIONS: Mood: pleasant Affect: broad Rapport: amicable Speech: fluent Comprehension: good Thought Processes: logical Motor: normal Sensory Problems: reduced vision, glasses Results are considered an accurate reflection of the patient's current cognitive status ? COGNITIVE RESULTS: Estimated premorbid abilities: Based on a combination of her single word reading performance and demographic variables, Ms. Owenss premorbid intellectual abilities are estimated to be in the average range. Attention/Processing Speed: Auditory attention span was high average. Performance on a measure of visuomotor processing speed and sequencing was high average. Processing speed on a digit-symbol recovery collector task was average. Speeded color naming was average, and speeded word reading was average. Performance on a sustained attention task showed poor vigilance and inattentiveness. Executive functioning: Mental flexibility and visuomotor set shifting was high average. Verbal response inhibition was extremely low, and the same task with a set switching component was average. Qualitatively, the supervisor irrigation observed the patient to slow down on the first task due to perceived level of difficulty. Language: Confrontation naming was intact. Lexical verbal fluency was high average. Semantic verbal fluency was average. Learning and Memory: Word list recall was average. Following a delay, word recall was average, and recognition of the words was within normal limits. Learning of geometric shapes was superior with high average total recall. Following a delay, recall of the shapes was superior with 100% retention, and recognition was within normal limits Visuospatial: Copy of simple figures was intact. Visuoperception on an angle estimation task was average. Mood: Ms. Stephenson endorsed minimal symptoms of depression and mild symptoms of anxiety on self-report measures. SUMMARY/IMPRESSIONS: Ms. Ayden Stephenson is a 47 year old, White female with longstanding cognitive ability in the average range. Results demonstrate variability in attention in an otherwise intact cognitive profile. Performance was impaired on sustained attention task and an inhibition task. She reports mild symptoms of anxiety. 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 The deficit observed is non-specific in that it can be present in patients with mood symptoms, poor sleep, increased stressors, and migraine related pain, all of which are present for Ms. Stephenson. RECOMMENDATIONS From a cognitive perspective, while she does not meet criteria for ADHD, I suspect some of the compensatory strategies offered for individuals with ADHD may be beneficial to her. I will send her a list of these strategies. Physical exercise is known to benefit cognition and is encouraged, as approved by patient's physician team This evaluation will serve as a cognitive baseline for any future comparisons. She may benefit from meeting with a psychologist to better manage mood symptoms and develop other coping strategies for her stressors. OVERVIEW The graph below shows performance in different areas of cognitive function. The table is intended to serve as a summary of the data and may not include each individual test score derived. See 'Test Results' and 'Impressions/Summary' section for a comprehensive discussion of all test scores. Very Superior Superior High Average Average X X X X X X X X X NA Low Average Moderately Low X* X* Extremely Low Estimated IQ Learning Memory Recog- nition Attention Processing Speed Executive Language Visuo- spatial Motor This table should not be presented separate from the Neuropsychological Evaluation Report dated 04/13/2023. This report is meant to be considered as only one part of the comprehensive examination. The results will be communicated to the referring physician via shared electronic medical record.The current evaluation was performed in the context of medical care and a clinical referral question and not for purposes of a forensic, disability, or workers' compensation evaluation. Rena Andersen, Ph.D., [facility]- Board Certified in Clinical Neuropsychology Neurobehavioral status exam/clinical interview by neuropsychologist = 1 hour Neuropsychological evaluation services by neuropsychologist = 2 hours Neuropsychological test administration/scoring by supervisor irrigation = 3 hours documented in this encounter [facility] 02-16-2023 Miscellaneous Notes Summary: appointments Lvm for patient to call so we can get her scheduled for a report visit with Dr Ramos documented in this encounter [facility] 02-13-2023 Instructions Sadie Ramos MD - 02/13/2023 5:20 PM EDT Recommend: Sleep behavioral medicine for insomnia management Follow up with her sleep provider to ensure adequate treatment of sleep apnea Optimal behavioral health management for stress, defer to her psychiatrist for potential therapy Neuropsychology testing for cognitive baseline Get B12 level Return after neuropsychology testing Please call [phone] for scheduling documented in this encounter [facility] 02-13-2023 Note HNO ID: [id number] Author: Sadie Ramos MD Service: ? Author Type: Physician Type: Progress Notes Filed: 02/13/2023 5:22 PM Note Text: NEUROLOGY CONSULTATION, [facility] REASON FOR CONSULTATION: Cognitive concerns Consultation requested by Froilan Henao for an opinion regarding Ayden Stephenson. My final recommendations will be communicated back to the requesting physician by way of shared Medical record or letter to requesting physician via US mail. HISTORY OF PRESENT ILLNESS Ayden Stephenson is a 47 year old right handed female with 18 years of formal education, whom we are asked to see for evaluation of cognitive concerns. History was provided by patient and her mother. Additional reports including outside records, imagings were reviewed. 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 She is performing well with her work, no problem with driving. She feels her brain is like a sieve, and she will forget things. It has been going on for the last 8 months, and it is hard for her to say it is getting worse. She has a high stress work. When she has a migraine, she will have trouble with naming or word finding. Her migraine has been much better controlled now, no migraines in the last 30 days, but her memory is about the same, but they occur occasionally. She thinks this happened when she has not enough sleep and high stress. However she loves her job. She goes to bed around 8pm, good night sleep by 9:30pm, some night 10:30pm. She is sleepy when she goes to bed, but she is unable to calm her mind down enough to fall asleep. Once she fell asleep she stays asleep and wakes up around 5:15-5:20am. She will feel tired/sleepy, even though she is on BiPAP machine. She uses her BiPAP machine all night long. Ideally she would like at least 7-8 hours. She thinks she sleeps 8 hours, she does not take naps. She is going to have a sleep return visit next month. She is on doxepin that helps. She will scroll with her phone before she goes to sleep too. She also tries to stop caffeine by 2pm. She tries to leave school work related at school when she can. She does not know the severity of her sleep study. She has her own sleep doctor and psychiatrist. She has lost around 10 lbs in the last year. Another thing she feels tired because of SIMMONS, undiagnosed for 5 years before treatment. She was close to cirrhosis when she was diagnosed. If she stressed herself too much, she would get very tired and would crash and stay in bed. 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 She did not lose consciousness. Serological studies from outside facility 01/05/2023 Vit D25OH 49.2 01/03/2023 Unremarkable CMP Except glucose 153, sodium 134 A1C 6.9 TSH 1.12 No recent B12 level MRI brain on 08/22/2022 showed increased prominence of extra axial space above overlying bilateral parietal lobe, could be bilateral parietal lobe atrophy, slightly progressed from 2013, or subdural hygroma. White matter lesion in right centrum semiovale, unchanged. SYSTEMS REVIEW See HPI MEDICAL HISTORY: PAST MEDICAL HISTORY Diagnosis Date Diabetes (HCC) Essential hypertension, benign History of kidney stones 02/19/2013 Migraine with aura ELVIS (obstructive sleep apnea) SURGICAL HISTORY: PAST SURGICAL HISTORY Procedure Laterality Date PAST SURGICAL HISTORY OF pectus excavatum surgery as a child PAST SURGICAL HISTORY OF 08/10/2012 cervical spine fusion of c5 and c6 FAMILY HISTORY: FAMILY HISTORY Problem Relation Age of Onset Hypertension Mother Arthritis Mother Arthritis Father other (Uterine Polyps [Other]) Other Maternal Cousin other (Migraine [Other]) Other Cousin other (Brain cancer [Other]) Other Half-brother Diabetes Sister Half-Sister Diabetes Father type 2 Diabetes Brother Half-Brother Stroke Mother other (Sleep Apena [Other]) Mother other (Sleep Apena [Other]) Father other (Sleep Apena [Other]) Brother Half-Brother SOCIAL HISTORY: Social History Tobacco Use Smoking status: Never Smokeless tobacco: Never Substance Use Topics Alcohol use: No Drug use: No Patient-Reported 02/11/2023 Where are you currently living? Home / Private residence Are you using any community resources to help care for yourself? No Has your caregiver accompanied you today? No Did you receive help completing this questionnaire? No If you received help, could you have completed this questionnaire on your own? N/A - I did not receive any help Activities of Daily Living (ADL) No flowsheet data found. PROMIS-10 PROMIS 10 02/11/2023 08/19/2022 In general, would you say your health is: G (more content not included)... [facility] 02-13-2023 Nurse Note Ayden Stephenson is a 47 year old year old right handed woman Accompanied by: mother. 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 What would you like to accomplish with this visit today? Figure out why my brain feels like a sieve, like a strainer sometime. Vital Signs: BP 126/71 Pulse 77 Wt 131.1 kg (289 lb) LMP 04/23/2015 BMI 40.31 kg/m documented in this encounter [facility] 02-13-2023 History of Present illness Narrative Images from the original note were not included. NEUROLOGY CONSULTATION, [facility] REASON FOR CONSULTATION: Cognitive concerns Consultation requested by Froilan Henao for an opinion regarding Ayden Stephenson. My final recommendations will be communicated back to the requesting physician by way of shared Medical record or letter to requesting physician via US mail. HISTORY OF PRESENT ILLNESS Ayden Stephenson is a 47 year old right handed female with 18 years of formal education, whom we are asked to see for evaluation of cognitive concerns. History was provided by patient and her mother. Additional reports including outside records, imagings were reviewed. 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 She is performing well with her work, no problem with driving. She feels her brain is like a sieve, and she will forget things. It has been going on for the last 8 months, and it is hard for her to say it is getting worse. She has a high stress work. When she has a migraine, she will have trouble with naming or word finding. Her migraine has been much better controlled now, no migraines in the last 30 days, but her memory is about the same, but they occur occasionally. She thinks this happened when she has not enough sleep and high stress. However she loves her job. She goes to bed around 8pm, good night sleep by 9:30pm, some night 10:30pm. She is sleepy when she goes to bed, but she is unable to calm her mind down enough to fall asleep. Once she fell asleep she stays asleep and wakes up around 5:15-5:20am. She will feel tired/sleepy, even though she is on BiPAP machine. She uses her BiPAP machine all night long. Ideally she would like at least 7-8 hours. She thinks she sleeps 8 hours, she does not take naps. She is going to have a sleep return visit next month. She is on doxepin that helps. She will scroll with her phone before she goes to sleep too. She also tries to stop caffeine by 2pm. She tries to leave school work related at school when she can. She does not know the severity of her sleep study. She has her own sleep doctor and psychiatrist. She has lost around 10 lbs in the last year. Another thing she feels tired because of SIMMONS, undiagnosed for 5 years before treatment. She was close to cirrhosis when she was diagnosed. If she stressed herself too much, she would get very tired and would crash and stay in bed. 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 She did not lose consciousness. Serological studies from outside facility 01/05/2023 Vit D25OH 49.2 01/03/2023 Unremarkable CMP Except glucose 153, sodium 134 A1C 6.9 TSH 1.12 No recent B12 level MRI brain on 08/22/2022 showed increased prominence of extra axial space above overlying bilateral parietal lobe, could be bilateral parietal lobe atrophy, slightly progressed from 2014, or subdural hygroma. White matter lesion in right centrum semiovale, unchanged. SYSTEMS REVIEW See HPI MEDICAL HISTORY: PAST MEDICAL HISTORY Diagnosis Date Diabetes (HCC) Essential hypertension, benign History of kidney stones 02/19/2013 Migraine with aura ELVIS (obstructive sleep apnea) SURGICAL HISTORY: PAST SURGICAL HISTORY Procedure Laterality Date PAST SURGICAL HISTORY OF pectus excavatum surgery as a child PAST SURGICAL HISTORY OF 08/10/2012 cervical spine fusion of c5 and c6 FAMILY HISTORY: FAMILY HISTORY Problem Relation Age of Onset Hypertension Mother Arthritis Mother Arthritis Father other (Uterine Polyps [Other]) Other Maternal Cousin other (Migraine [Other]) Other Cousin other (Brain cancer [Other]) Other Half-brother Diabetes Sister Half-Sister Diabetes Father type 2 Diabetes Brother Half-Brother Stroke Mother other (Sleep Apena [Other]) Mother other (Sleep Apena [Other]) Father other (Sleep Apena [Other]) Brother Half-Brother SOCIAL HISTORY: Social History Tobacco Use Smoking status: Never Smokeless tobacco: Never Substance Use Topics Alcohol use: No Drug use: No Patient-Reported 02/11/2023 Where are you currently living? Home / Private residence Are you using any community resources to help care for yourself? No Has your caregiver accompanied you today? No Did you receive help completing this questionnaire? No If you received help, could you have completed this questionnaire on your own? N/A - I did not receive any help Activities of Daily Living (ADL) No flowsheet data found. PROMIS-10 PROMIS 10 02/11/2023 08/19/2022 In general, would you say your health is: Good Very good In general, would you say your quality of life is: Very good Very good In general, how would you rate your physical health? Good Very good In general, how would you rate your mental health, including your mood and your ability to think? Very good Very good In general, how would you rate your satisfaction with your social activities and relationships? Very good Very good To what extent are you able to carry out your everyday physical activities such as walking, climbing stairs, carrying groceries, or moving a chair? Completely Mostly In general, please rate how well you carry out your usual social activities and roles. (This includes activities at home, at work and in your community, and responsibilities as a parent, child, spouse, employee, friend, etc.) Very good Very good How would you rate your pain on average? 5 5 How would you rate your fatigue on average? Moderate Mild How often have you been bothered by emotional problems such as feeling anxious, depressed or irritable? Sometimes Often PROMIS Adult Short Form-Global Health Score (Physical) 44.9 (Good) 47.7 (Good) PROMIS Adult Short Form-Global Health Score (Mental) 50.8 (Very Good) 48.3 (Very Good) PHQ-9 PHQ-9 All Questions 02/11/2023 08/19/2022 Little interest or pleasure in doing things 0 0 Feeling down, depressed, or hopeless 0 0 Trouble falling or staying asleep, or sleeping too much 1 1 Feeling tired or having little energy 0 0 Poor appetite or overeating 0 0 Feeling bad about yourself - or that you are a failure or have let yourself or your family down 0 0 Trouble concentrating on things, such as reading the newspaper or watching television 0 0 Moving or speaking so slowly that other people could have noticed. Or the opposite - being so fidgety or restless that you have been moving around a lot more than usual 0 0 Thoughts that you would be better off , or of hurting yourself in some way 0 0 PHQ-9 Score 1 1 (0-4) minimal depression (5-9) mild depression (10-14) moderate depression (15-19) moderately severe depression (20-27) severe depression Full History of PHQ-9 Scores PHQ-9 Score 02/11/2023 1 08/19/2022 1 01/13/2022 3 02/29/2016 2 10/17/2015 2 04/11/2015 0 10/11/2014 0 01/16/2014 2 Sleep 02/11/2023 What is your average total sleep time per night over the past 4 weeks? 8 Hours What is your average total sleep time during the day over the past 4 weeks? 0 Hours Have you been diagnosed with sleep apnea? Yes Are you currently using positive airway pressure (PAP) therapy? Yes How many hours per night on average do you use PAP therapy? 8 Insomnia Severity Index 02/11/2023 Difficulty falling asleep 2 Difficulty staying asleep 1 Problem waking up too early 0 Satisfied/dissatisfied with current sleep pattern 2 Sleep interferes with daily functions 1 Sleep problems noticeable to others 1 Worried/distressed about current sleep problems 2 Score 9 Caregiver-Reported No flowsheet data found. Dementia Severity Rating Scale (DSRS) No flowsheet data found. MEDICATIONS: Current Outpatient Medications Medication Sig Dispense Refill ZINC ORAL Take by mouth. cranberry fruit concentrate (AZO CRANBERRY ORAL) Take by mouth. doxepin capsule 10 mg Take 10 mg by mouth at bedtime as needed. celecoxib (CELEBREX) 200 mg capsule TAKE 1 CAPSULE BY MOUTH TWICE A DAY NEEDED FOR 30 DAYS JARDIANCE 10 mg tablet rOPINIRole (REQUIP) 0.25 mg tablet TAKE ONE TABLET BY MOUTH 1 TO 3 HOURS BEFORE BEDTIME ubrogepant (UBRELVY) 100 mg tablet Take 1 tab at migraine onset. May repeat once in 2 hours as needed. 16 tablet 11 ursodiol (ACTIGALL) 300 mg capsule Take 1 capsule by mouth once daily. rizatriptan (MAXALT) 10 mg tablet 1 tab at earliest sign of migraine. May repeat once in 2 hours if needed. 12 tablet 11 mirtazapine (REMERON) 15 mg tablet Take 15 mg by mouth daily at bedtime. metFORMIN (GLUCOPHAGE) 500 mg tablet Take 500 mg by mouth twice daily. 2 tabs twice daily Norethindrone, Contraceptive, (ORTHO MICRONOR) 0.35 mg tablet Take 1 tablet by mouth once daily. 3 Package 3 DULoxetine (CYMBALTA) 30 mg capsule Take 30 mg by mouth at bedtime as needed. Cholecalciferol, Vitamin D3, 25 mcg (1,000 unit) cap Take 1,000 Units by mouth once daily. Coenzyme Q10 200 mg cap Take by mouth once daily. metoprolol tartrate, short acting, (LOPRESSOR) 25 mg tablet Take 25 mg by mouth twice daily. Ibuprofen 200 mg cap Take by mouth. losartan (COZAAR) 50 mg tablet Take 50 mg by mouth once daily. Magnesium 250 mg ORAL Tab Take 250 mg by mouth. VITAMIN A ORAL Take by mouth. duloxetine hcl(CYMBALTA 60 MG CAP) Take one(1) capsule daily. 0 HYDROCHLOROTHIAZIDE 25 MG TAB Take one(1) tablet daily. 0 No current facility-administered medications for this visit. ALLERGIES: ALLERGIES Allergen Reactions Lisinopril Prednisone Other: See Comments Valium [Diazepam] Other: See Comments Zithromax [Azithrom* VITAL SIGNS: BP 126/71 Pulse 77 Wt 289 lb (131.1kg) LMP 04/23/2015 PHYSICAL EXAMINATION GENERAL APPEARANCE: Patient did not appear to be in any acute distress, speech was fluent, followed commands without problems. Surprise Cognitive Assessment (MoCA) COGNITIVE TESTING: Surprise cognitive assessment test version 7.1 was 27/30. Visuospatial and executive function test was 4/5. (Cube) Naming 3/3, Attention 6/6, Language 2/3, Abstraction 2/2, Delayed recall 4/5, Orientation 6/6. On delayed recall, patient was able to repeat 5 and 5 words after each word trial, can recall 4 words without cue, 1 additional words with category cue. With letter fluency, patient could come up with 10 words within a minute. Semantic fluency 10 words within a minute. IMPRESSION/REPORT/PLAN: Memory loss, sporadic Sleep onset insomnia, psychophysiologic Sleep apnea, compliant with BiPAP, still sleepy Ayden Stephenson is a 47 year old right handed female reports sporadic memory loss in the last 8 months, but not really worsened. She wonders if that has to do with her poor sleep and stress. She has history of sleep apnea, and compliant with her BiPAP. However even after her 8 hours of sleep, she is still sleepy. She also described sleep maintenance insomnia, even though she is using doxepin that helps. But she has trouble turning her mind off, though she working on leaving her work at her work place. In addition, she is also diagnosed with SIMMONS, and her liver condition can make her tired. Her bedside testing is unremarkable. MoCA 27/30, mild decrease in fluency. But it may not be adequate enough to evaluate her, given her likely higher cognitive baseline. Her MRI showed increase in prominence of space above her bilateral parietal area, and concern for possible atrophy. She had one head injury but that was back in 2001-, and the prominence was already present in her 2013 MRI, but slightly increased in 2022 MRI, which is 9 years apart. However she did not report any worsening in her functions, including her performance at a high stress job. Also, if this is due to CSF leak, her headache actually improved. It is possible that her cognitive changes are related to sleep and stress, and the finding of the MRI is incidental, but it will be beneficial to obtain a baseline of her cognitive function. She will also benefit from management of her insomnia and stress. Recommend: Sleep behavioral medicine for insomnia management Follow up with her sleep provider to ensure adequate treatment of sleep apnea Optimal behavioral health management for stress, defer to her psychiatrist for potential therapy Neuropsychology testing for cognitive baseline Get B12 level Return after neuropsychology testing Please call [phone] for scheduling ADMINISTRATIVE BILLING I spent a total of 60 minutes on the date of the service which included preparing to see the patient, [id number] patient care, completing clinical documentation, obtaining and/or reviewing separately obtained history, performing a medically appropriate examination, counseling and educating the patient/family/caregiver, ordering medications, tests, or procedures, independently interpreting results (not separately reported), and communicating results to the patient/family/caregiver. This note was partially generated using voice recognition technology system, any errors noted are due to the technology and are unintentional. cc: Froilan Henao [id number] [facility] [id number] documented in this encounter [facility] 10-31-2022 Miscellaneous Notes prior authorization submitted via [facility] Ayden Stephenson Diamond: [id number] - PA Status-Sent to [facility]MG [facility] [place] [facility] (2016 [facility]) Patient sent farmhopping message on 10/28 asking for status. Prior Authorization for Medications Requested by (Khalif, Pharmacy, Patient Call, Fax) : [facility] Name: [facility] Phone # : [phone] Name of Medication : Ubrelvy Dose : 100 mg tablets If renewal, auth date expiration: NA Prescribing Provider: Baron Dhillon OV: 08/20/2022 with Henao Insurance Provider : Pan [employer] Is insurance card scanned in, including Rx info? Yes Rx ID number: [id number] Rx BIN: [id number] Rx PCN: [id number] Rx Grp: [id number] Insurance Phone : CoverMyMeds Diamond: NA E-PA? Yes documented in this encounter [facility] 08-22-2022 Note HNO ID: [id number] Author: RT Madhav(Ginny) Service: ? Author Type: Technologist Type: Progress Notes Filed: 08/22/2022 4:25 PM Note Text: Radiology Service Progress Note PATIENT NAME: Ayden Stephenson DATE OF SERVICE: August 22, 2022 TIME: 4:23 PM PATIENT IDENTITY VERIFICATION COMPLETED USING TWO (2) IDENTIFIERS: Name and Date of confirmed by patient verbally. FALL SCREENING: Has the patient had 2 falls in the last year or 1 fall with injury or currently using an Ambulatory Assistive Device (Walker, Cane, Wheelchair, Crutches, etc.)? No PATIENT GENDER DATA: Female. status: : No status: NO. PATIENT RELEVANT IMPLANT DATA REVIEWED: Yes RADIOLOGY DEPARTMENT: MR; Exam(s) Completed: Head: Routine Brain PERIPHERAL IV DATA: Not applicable SIGNED BY: RT Madhav(R) August 22, 2022 4:23 PM [facility] 08-22-2022 History of Present illness Narrative Radiology Service Progress Note PATIENT NAME: Ayden Stephenson DATE OF SERVICE: August 22, 2022 TIME: 4:23 PM PATIENT IDENTITY VERIFICATION COMPLETED USING TWO (2) IDENTIFIERS: Name and Date of confirmed by patient verbally. FALL SCREENING: Has the patient had 2 falls in the last year or 1 fall with injury or currently using an Ambulatory Assistive Device (Walker, Cane, Wheelchair, Crutches, etc.)? No PATIENT GENDER DATA: Female. status: : No status: NO. PATIENT RELEVANT IMPLANT DATA REVIEWED: Yes RADIOLOGY DEPARTMENT: MR; Exam(s) Completed: Head: Routine Brain PERIPHERAL IV DATA: Not applicable SIGNED BY: RT Madhav(R) August 22, 2022 4:23 PM documented in this encounter [facility] 08-20-2022 Note HNO ID: [id number] Author: Froilan Henao, DO Service: ? 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 She also complains of worsening short term memory and cognitive dysfunction. PLAN: (Please see typed patient instructions for detailed instructions) ---> Acute Treatment: -Maxalt vs. Ubrelvy trial in hopes of better efficacy and more consistency. We will get a precert for an Oral Calcitonin Gene-Related Peptide Receptor Antagonist (GEPANT) Ubrogepant for the rescue treatment of episodic migraine. This patient meets AHS criteria for treatment of migraine with an oral small molecule CGRP antagonist GEPANT. The FDA has approved GEPANTS for the treatment of migraine. Specifically, the patient has 9 headaches per month, lasting 4 or more hours/day associated with photophobia, phonophobia, nausea for three or more months. Medication overuse headache has been ruled out. Patient will not use with another GEPANT. The patient has tried and failed the following : Anti-Migraine Rizatriptan (Maxalt) Sumatriptan (Imitrex, Sumavel) Analgesic Hydrocodone/Acetaminophen (Vicodin, Melville) Ketorolac (Toradol) Etodolac Gep[facility] ---> Preventive Treatment: -Cymbalta 90 mg daily per her prescriber. -Metoprolol 25 mg bid per her prescriber. -Losartan 50 mg daily per her prescriber. -Supplements discussed. ---> Brain MRI wo for her memory and cognitive concerns. She will have her most recent labs sent to me to make sure routines, B12, MMA, TSH have been checked. ---> Follow-up: 4 months. --------- -- Last visit: 01/14/22 Interval Headache Hx: Migraines tend to last 3 days to a week. Averaging less than 15 overall headache days per month which includes these long duration migraine days. Feels her short term memory is poor. HEADACHE SCORES: Headache Questions 01/13/2022 08/19/2022 ER visits since last office visit: 0 0 Hospital stays since last office visit 0 0 Limited ADLs in the last month: 1 0 Days missed from work or school in the last month: 1 0 Days headache pain free in the last month: 0 24 Days per month with ALL of the following symptoms - decreased productivity, light sensitivity and nausea: 3 0 Initial improvement of headache after botox injection at last visit: Not applicable, I did not have a botox injection at my last visit Not applicable, I did not have a botox injection at my last visit PRN medication usage in the last month: 3 2 Patient impression of improvement since last visit: Much improved Minimally improved HIT-6 01/13/2022 08/19/2022 HIT-6 52 (Moderate impact) 60 (Severe impact) ABBI - 2/7 SCORES 01/13/2022 08/19/2022 ABBI-2 Score 0 2 Migraine Specific QOL - Higher scores indicate better HRQL 08/19/2022 Role Function-Restrictive Transformed Score (range: 0-100) 80 Role Function-Preventive Transformed Score (range: 0-100) 80 Emotional Function Transformed Score (range: 0-100) 93.33 PHQ-9 02/29/2016 01/13/2022 08/19/2022 Score 2 3 1 --------- --- MEDS: Current Outpatient Medications Medication Sig ubrogepant (UBRELVY) 100 mg tablet Take 1 tab at migraine onset. May repeat once in 2 hours as needed. ursodiol (ACTIGALL) 300 mg capsule Take 1 capsule by mouth once daily. rizatriptan (MAXALT) 10 mg tablet 1 tab at earliest sign of migraine. May repeat once in 2 hours if needed. mirtazapine (REMERON) 15 mg tablet Take 15 mg by mouth daily at bedtime. metFORMIN (GLUCOPHAGE) 500 mg tablet Take 500 mg by mouth four times daily. Norethindrone, Contraceptive, (ORTHO MICRONOR) 0.35 mg tablet Take 1 tablet by mouth once daily. DULoxetine (CYMBALTA) 30 mg capsule Take 30 mg by mouth at bedtime as needed. Cholecalciferol, Vitamin D3, (VITAMIN D) 1,000 unit cap Take 1,000 Units by mouth once daily. Coenzyme Q10 200 mg cap Take by mouth once daily. metoprolol tartrate, short acting, (LOPRESSOR) 25 mg tablet Take 25 mg by mouth twice daily. Ibuprofen 200 mg cap Take by mouth. losartan (COZAAR) 50 mg tablet Take 50 mg by mouth once daily. Magnesium 250 mg ORAL Tab Take 250 mg by mouth. VITAMIN A ORAL Take by mouth. duloxetine hcl(CYMBALTA 60 MG CAP) Take one(1) capsule daily. HYDROCHLOROTHIAZIDE 25 MG TAB Take one(1) tablet daily. No current facility-administered med (more content not included)... 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 She also complains of worsening short term memory and cognitive dysfunction. PLAN: (Please see typed patient instructions for detailed instructions) ---> Acute Treatment: -Maxalt vs. Ubrelvy trial in hopes of better efficacy and more consistency. We will get a precert for an Oral Calcitonin Gene-Related Peptide Receptor Antagonist (GEPANT) Ubrogepant for the rescue treatment of episodic migraine. This patient meets AHS criteria for treatment of migraine with an oral small molecule CGRP antagonist GEPANT. The FDA has approved GEPANTS for the treatment of migraine. Specifically, the patient has 9 headaches per month, lasting 4 or more hours/day associated with photophobia, phonophobia, nausea for three or more months. Medication overuse headache has been ruled out. Patient will not use with another GEPANT. The patient has tried and failed the following : Anti-Migraine Rizatriptan (Maxalt) Sumatriptan (Imitrex, Sumavel) Analgesic Hydrocodone/Acetaminophen (Vicodin, Melville) Ketorolac (Toradol) Etodolac Gepants [facility] ---> Preventive Treatment: -Cymbalta 90 mg daily per her prescriber. -Metoprolol 25 mg bid per her prescriber. -Losartan 50 mg daily per her prescriber. -Supplements discussed. ---> Brain MRI wo for her memory and cognitive concerns. She will have her most recent labs sent to me to make sure routines, B12, MMA, TSH have been checked. ---> Follow-up: 4 months. Last visit: 01/14/22 Interval Headache Hx: Migraines tend to last 3 days to a week. Averaging less than 15 overall headache days per month which includes these long duration migraine days. Feels her short term memory is poor. HEADACHE SCORES: Headache Questions 01/13/2022 08/19/2022 ER visits since last office visit: 0 0 Hospital stays since last office visit 0 0 Limited ADLs in the last month: 1 0 Days missed from work or school in the last month: 1 0 Days headache pain free in the last month: 0 24 Days per month with ALL of the following symptoms - decreased productivity, light sensitivity and nausea: 3 0 Initial improvement of headache after botox injection at last visit: Not applicable, I did not have a botox injection at my last visit Not applicable, I did not have a botox injection at my last visit PRN medication usage in the last month: 3 2 Patient impression of improvement since last visit: Much improved Minimally improved HIT-6 01/13/2022 08/19/2022 HIT-6 52 (Moderate impact) 60 (Severe impact) ABBI - 2/7 SCORES 01/13/2022 08/19/2022 ABBI-2 Score 0 2 Migraine Specific QOL - Higher scores indicate better HRQL 08/19/2022 Role Function-Restrictive Transformed Score (range: 0-100) 80 Role Function-Preventive Transformed Score (range: 0-100) 80 Emotional Function Transformed Score (range: 0-100) 93.33 PHQ-9 02/29/2016 01/13/2022 08/19/2022 Score 2 3 1 MEDS: Current Outpatient Medications Medication Sig ubrogepant (UBRELVY) 100 mg tablet Take 1 tab at migraine onset. May repeat once in 2 hours as needed. ursodiol (ACTIGALL) 300 mg capsule Take 1 capsule by mouth once daily. rizatriptan (MAXALT) 10 mg tablet 1 tab at earliest sign of migraine. May repeat once in 2 hours if needed. mirtazapine (REMERON) 15 mg tablet Take 15 mg by mouth daily at bedtime. metFORMIN (GLUCOPHAGE) 500 mg tablet Take 500 mg by mouth four times daily. Norethindrone, Contraceptive, (ORTHO MICRONOR) 0.35 mg tablet Take 1 tablet by mouth once daily. DULoxetine (CYMBALTA) 30 mg capsule Take 30 mg by mouth at bedtime as needed. Cholecalciferol, Vitamin D3, (VITAMIN D) 1,000 unit cap Take 1,000 Units by mouth once daily. Coenzyme Q10 200 mg cap Take by mouth once daily. metoprolol tartrate, short acting, (LOPRESSOR) 25 mg tablet Take 25 mg by mouth twice daily. Ibuprofen 200 mg cap Take by mouth. losartan (COZAAR) 50 mg tablet Take 50 mg by mouth once daily. Magnesium 250 mg ORAL Tab Take 250 mg by mouth. VITAMIN A ORAL Take by mouth. duloxetine hcl(CYMBALTA 60 MG CAP) Take one(1) capsule daily. HYDROCHLOROTHIAZIDE 25 MG TAB Take one(1) tablet daily. No current facility-administered medications for this visit. Prior Therapies Duration of Use Dose Reason for Discontinuation Analgesic Hydrocodone/Acetaminophen (Vicodin, Melville) Ketorolac (Toradol) Etodolac Anti-Convulsant Gabapentin (Neurontin) Zonisamide (Zonegram) Anti-Depressant and Antipsychotic Duloxetine (Cymbalta) Fluoxetine (Prozac) Mirtazapine (Remeron) Ziprasidone (Geodon) Nebivolol, Olmesartan Anti-Migraine Rizatriptan (Maxalt) Sumatriptan (Imitrex, Sumavel) Blood Pressure Lisinopril (Zestril) Losartan (Cozaar) Metoprolol (Lopressor,Toprol XL) HCTZ, Benicar GEPANTS Rimegepant (Nurtec) Sleep Aids Trazodone (Desyrel) Zolpidem (Ambien) Supplements CoQ10 Magnesium Riboflavin Over the Counter Medications Acetaminophen (Tylenol) Acetaminophen/Aspirin/Caffeine (Excedrin, Goody s) Aspirin Ibuprofen (Advil, Motrin) Naproxen sodium (Aleve) Froilan P. Henao, DO [facility] [place] [facility] [address] [place] [address], [place] [address] Level of service: Est level 3 (20-29 min). Time spent 25 min on the day of service, which included preparing to see the patient, [id number] patient care, completing clinical documentation, obtaining and/or reviewing separately obtained history, counseling and educating the patient/family/caregiver, and ordering medications, tests, or procedures. Medical Decision Making: Medical Decision Making Level: 1 - N/A cc: Tico Saavedra MD [address] [place] [id number] documented in this encounter [facility] 01-31-2022 Miscellaneous Notes Received approval via fax from [place] for Nurtec. Effective 01/30/2022 - 01/30/2023 Reference # [id number] Uploaded to chart via [employer]. Completed PA over covermymds: If [facility] has not replied to your request within 24 hours please contact [employer] at [phone]. Ayden Stephenson (Diamond: [id number]) Rx #: [id number] Nurtec 75MG dispersible tablets Form [facility] Commercial Electronic PA Form (2017 [place]) Wait for Determination, Cira Prescott Images from the original note were not included. Received faxed notification from [facility] stating PA needed on Nurtec 75mg. 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 PLAN: (Please see typed patient instructions for detailed instructions) ---> Acute Treatment: -Maxalt vs. Nurtec trial in hopes of better efficacy. We will get a precert for an Oral Calcitonin Gene-Related Peptide Receptor Antagonist (GEPANT) Rimegepant for the rescue treatment of episodic migraine. This patient meets AHS criteria for treatment of migraine with an oral small molecule CGRP antagonist GEPANT. The FDA has approved GEPANTS for thetreatment of migraine. Specifically, the patient has 5 headaches per month, lasting 4 or more hours/day associated with photophobia, phonophobia, nausea for three or more months. Medication overuse headache has been ruled out. Patient will not use with another GEPANT. The patient has tried and failed the following : Anti-Migraine Rizatriptan (Maxalt) Sumatriptan (Imitrex, Sumavel) Analgesic Hydrocodone/Acetaminophen (Vicodin, Melville) Ketorolac (Toradol) Etodolac ---> Preventive Treatment: -Cymbalta 90 mg daily per her prescriber. -Metoprolol 25 mg bid per her prescriber. -Losartan 50 mg daily per her prescriber. -Supplements discussed. ---> Follow-up: 4 months. Last visit: 07/12/21 Interval Headache Hx: Last bad migraine was beginning of November. 30 overall headache days per month which are mostly mild achy pressure which includes 5 or less migraine days per month. HEADACHE SCORES: Headache Questions 01/13/2022 ER visits since last office visit: 0 Hospital stays since last office visit 0 Limited ADLs in the last month: 1 Days missed from work or school in the last month: 1 Days headache pain free in the last month: 0 Days per month with ALL of the following symptoms - decreased productivity, light sensitivity and nausea: 3 Initial improvement of headache after botox injection at last visit: Not applicable, I did not havea botox injection at my last visit PRN medication usage in the last month: 3 Patient impression of improvement since last visit: Much improved HIT-6 01/13/2022 HIT-6 52 (Moderate impact) ABBI - 2/7 SCORES 01/13/2022 ABBI-2 Score 0 PHQ-9 10/17/2015 02/29/2016 01/13/2022 Score 2 2 3 MEDS: Current Outpatient Medications Medication Sig rizatriptan (MAXALT) 10 mg tablet 1 tab at earliest sign of migraine. May repeat once in 2 hours ifneeded. mirtazapine (REMERON) 15 mg tablet Take 15 mg by mouth daily at bedtime. metFORMIN (GLUCOPHAGE) 500 mg tablet Take 500 mg by mouth four times daily. Norethindrone, Contraceptive, (ORTHO MICRONOR) 0.35 mg tablet Take 1 tablet by mouth once daily. DULoxetine (CYMBALTA) 30 mg capsule Take 30 mg by mouth at bedtime as needed. Cholecalciferol, Vitamin D3, (VITAMIN D) 1,000 unit cap Take 1,000 Units by mouth once daily. Coenzyme Q10 200 mg cap Take by mouth once daily. metoprolol tartrate, short acting, (LOPRESSOR) 25 mg tablet Take 25 mg by mouth twice daily. Ibuprofen 200 mg cap Take by mouth. losartan (COZAAR) 50 mg tablet Take 50 mg by mouth once daily. Magnesium 250 mg ORAL Tab Take 250 mg by mouth. VITAMIN A ORAL Take by mouth. duloxetine hcl(CYMBALTA 60 MG CAP) Take one(1) capsule daily. HYDROCHLOROTHIAZIDE 25 MG TAB Take one(1) tablet daily. No current facility-administered medications for this visit. Prior Therapies Duration of Use Dose Reason for Discontinuation Analgesic Hydrocodone/Acetaminophen (Vicodin, Melville) Ketorolac (Toradol) Etodolac Anti-Convulsant Gabapentin (Neurontin) Zonisamide (Zonegram) Anti-Depressant and Antipsychotic Duloxetine (Cymbalta) Fluoxetine (Prozac) Mirtazapine (Remeron) Ziprasidone (Geodon) Nebivolol, Olmesartan Anti-Migraine Rizatriptan (Maxalt) Sumatriptan (Imitrex, Sumavel) Blood Pressure Lisinopril (Zestril) Losartan (Cozaar) Metoprolol (Lopressor,Toprol XL) HCTZ, Benicar Sleep Aids Trazodone (Desyrel) Zolpidem (Ambien) Supplements CoQ10 Magnesium Riboflavin Froilan Henao DO [facility] [place] [facility] [address] [place] [address] Level of service: Est level 3 (20-29 min). Time spent 20 min on the day of service, which included preparing to see the patient, [id number] patient care, completing clinical documentation, obtaining and/or reviewing separately obtained history, counseling and educating the patient/family/caregiver and ordering medications, tests, or procedures. Medical Decision Making cc: Tico Saavedra MD [address] [place] [id number] [facility] of Past illness Narrative* Problem Noted Date Resolved Date Migraine without aura 01/16/2014 04/11/2015 documented as of this encounter (statuses as of 01/14/2022) [facility] of [facility] illness Narrative* Problem Noted Date Resolved Date Migraine without aura 01/16/2014 04/11/2015 documented as of this encounter (statuses as of 01/31/2022) [facility] Narrative* Problem Noted Date Resolved Date Migraine without aura 01/16/2014 04/11/2015 documented as of this encounter (statuses as of 08/20/2022) [facility] Narrative* Problem Noted Date Resolved Date Migraine without aura 01/16/2014 04/11/2015 documented as of this encounter (statuses as of 09/03/2022) [facility] Narrative* Problem Noted Date Resolved Date Migraine without aura 01/16/2014 04/11/2015 documented as of this encounter (statuses as of 09/22/2022) [facility] Narrative* Problem Noted Date Resolved Date Migraine without aura 01/16/2014 04/11/2015 documented as of this encounter (statuses as of 10/31/2022) [facility] N[facility]ative* Problem Noted Date Resolved Date Migraine without aura 01/16/2014 04/11/2015 documented as of this encounter (statuses as of 02/14/2023) [facility] Narrative* Problem Noted Date Resolved Date Migraine without aura 01/16/2014 04/11/2015 documented as of this encounter (statuses as of 02/16/2023) [facility] Narrative* Problem Noted Date Diagnosed Date Resolved Date Migraine without aura 01/16/20142014 documented as of this encounter (statuses as of 04/14/2023) [facility] Narrative* Problem Noted Date Diagnosed Date Resolved Date Migraine without aura 01/16/20142014 documented as of this encounter (statuses as of 04/14/2023) [facility] Migraine without aura and without status migrainosus, not intractable- Primary Migraine without aura, without mention of intractable migraine without mention of status migrainosus Migraine with aura and without status migrainosus, not intractable Migraine with aura, without mention of intractable migraine without mention of status migrainosus Chronic daily headache Headache Chronic tension-type headache, intractable Chronic tension type headache [facility] Diagnosis Migraine with aura and without status migrainosus, not intractable- Primary Migraine with aura, without mention of intractable migraine without mention of status migrainosus Migraine aura without headache Migraine with aura, without mention of intractable migraine without mention of status migrainosus Abdominal migraine, not intractable Variants of migraine, not elsewhere classified, without mention of intractable migraine without mention of status migrainosus Migraine without aura and without status migrainosus, not intractable Migraine without aura, without mention of intractable migraine without mention of status migrainosus Cognitive impairment, mild, so stated Mild cognitive impairment, so stated Memory impairment Memory loss [facility] Abnormal brain MRI- Primary Nonspecific (abnormal) findings on radiological and other examination of skull and head Memory impairment Memory loss Cognitive complaints Other signs and symptoms involving cognition [facility] Memory impairment- Primary Memory loss Cognitive complaints Other signs and symptoms involving cognition Psychophysiologic insomnia Persistent disorder of initiating or maintaining sleep Stress at work Adverse effects of work environment Obstructive sleep apnea Obstructive sleep apnea (adult) (pediatric) [facility] Diagnosis Cognitive disorder- Primary Unspecified persistent mental disorders due to conditions classified elsewhere Migraine aura without headache Migraine with aura, without mention of intractable migraine without mention of status migrainosus ELVIS (obstructive sleep apnea) Obstructive sleep apnea (adult) (pediatric) [facility] Diagnosis Cognitive impairment, mild, so stated Mild cognitive impairment, so stated Memory impairment Memory loss documented in this encounter [facility] Reason for Referral Specialty Diagnoses / Procedures Referred By Contac t Referred To Contact MR IMAGING Diagnoses Cognitive impairment, mild, so stated Memory impairment Procedures MRI BRAIN WO IVCON MRI BRAIN BRAIN STEM W/O CONTRAST MATERIAL Froilan Henao, DO [address] [place] [id number] Mr Imaging Referral ID Status Reason Start Date Expiration Date Visits Requested Visits Authorized [id number] Pending Review Auto-Generat ed Referral 08/20/2022 09/19/2023 1 1 Specialty Diagnoses / Procedures Referred By Contac t Referred To Contact Neurology Diagnoses Abnormal brain MRI Memory impairment Cognitive complaints Procedures CONSULT TO NEUROLOGY OFFICE/OUTPATIENT NEW HIGH MDM 60-74 MINUTES Zack Henaojoey Ann, DO [address] [place] [id number] Referral ID Status Reason Start Date Expiration Date Visits Requested Visits Authorized [id number] Authorized PCP Requested Referral 09/21/2022 09/21/2023 1 1 Specialty Diagnoses / Procedures Referred By Contac t Referred To Contact MR IMAGING Diagnoses Cognitive impairment, mild, so stated Memory impairment Procedures MRI BRAIN WO IVCON MRI BRAIN BRAIN STEM W/O CONTRAST MATERIAL Zack Henaojoey Ann, DO [address] [place] [phone] [facility] [place] [id number] Referral ID Status Reason Start Date Expiration Date V isits Requested Visits Authorized [id number] Closed Auto-Generate d Referral 08/21/2022 09/13/2022 1 1 Summary Purpose Family History No Family History Records Found Advance Directives No Advanced Directives Records Found Additional Source Comments Source Comments (unrecognize d section and content) In the event this informatio n is protected by the Federal Confidentiality of Alcohol and Drug Abuse Patient Records regulations: The Federal rules restrict any use of the information to criminally investigate or prosecute any alcohol or drug abuse patient.[facility] event this information is protected by the Federal Confidentiality of Alcohol and Drug Abuse Patient Records regulations: The Federal rules restrict any use of the information to criminally investigate or prosecute any alcohol or drug abuse patient.[facility] the event this information is protected by the Federal Confidentiality of Alcohol and Drug Abuse Patient Records regulations: The Federal rules restrict any use of the information to criminally investigate or prosecute any alcohol or drug abuse patient.[facility] the event this information is protected by the Federal Confidentiality of Alcohol and Drug Abuse Patient Records regulations: The Federal rules restrict any use of the information to criminally investigate or prosecute any alcohol or drug abuse patient.[facility] the event this information is protected by the Federal Confidentiality of Alcohol and Drug Abuse Patient Records regulations: The Federal rules restrict any use of the information to criminally investigate or prosecute any alcohol or drug abuse patient.[facility] the event this information is protected by the Federal Confidentiality of Alcohol and Drug Abuse Patient Records regulations: The Federal rules restrict any use of the information to criminally investigate or prosecute any alcohol or drug abuse patient.[facility] the event this information is protected by the Federal Confidentiality of Alcohol and Drug Abuse Patient Records regulations: The Federal rules restrict any use of the information to criminally investigate or prosecute any alcohol or drug abuse patient.[facility] the event this information is protected by the Federal Confidentiality of Alcohol and Drug Abuse Patient Records regulations: The Federal rules restrict any use of the information to criminally investigate or prosecute any alcohol or drug abuse patient.[facility] the event this information is protected by the Federal Confidentiality of Alcohol and Drug Abuse Patient Records regulations: The Federal rules restrict any use of the information to criminally investigate or prosecute any alcohol or drug abuse patient.[facility] the event this information is protected by the Federal Confidentiality of Alcohol and Drug Abuse Patient Records regulations: The Federal rules restrict any use of the information to criminally investigate or prosecute any alcohol or drug abuse patient.[facility] the event this information is protected by the Federal Confidentiality of Alcohol and Drug Abuse Patient Records regulations: The Federal rules restrict any use of the information to criminally investigate or prosecute any alcohol or drug abuse patient.[facility] Reason for Visit (unrecogniz ed section and content) Reason Comments Insurance Authorization Nurtec 75mg 05/13 Reason Comments Migraine Reason Comments Insurance Authorization [employer] Reason Comments Consult Specialty Diagnoses / Procedures Referred By Narcisa villanueva Referred To Contact Neurology Diagnoses Abnormal brain MRI Memory impairment Cognitive complaints Procedures CONSULT TO NEUROLOGY OFFICE/OUTPATIENT [facility] 60-74 MINUTES Froilan Henao DO [address] [place] [address] Referral ID Status Reason Start Date Expiration Date V isits Requested Visits Authorized [id number] Closed PCP Requested Referral 09/21/2022 09/21/2023 1 1 Reason Comments Appointment Lvm for patient to c all so we can get her scheduled for a report visit with Dr Ramos Specialty Diagnoses / Procedures Referred By Narcisa villanueva Referred To Contact MR IMAGING Diagnoses Cognitive impairment, mild, so stated Memory impairment Procedures MRI BRAIN WO IVCON MRI BRAIN BRAIN STEM W/O CONTRAST MATERIAL Froilan Henao DO [address] [place] [id number] [place] [id number] Referral ID Status Reason Start Date Expiration Date V isits Requested Visits Authorized [id number] Closed Auto-Generate d Referral 08/21/2022 09/13/2022 1 1 Care Teams (unrecognized sec tion and content) Commercial Interior Designer Relationship Specialty Start Date End Date Tico Saavedra MD PCP - General Family Practice 12/25/11 Commercial Interior Designer Relationship Specialty Start Date End Date Tico Saavedra MD PCP - General Family Medicine 12/25/11 Commercial Interior Designer Relationship Specialty Start Date End Date Tico Saavedra MD PCP - General Family Medicine 12/25/11 Commercial Interior Designer Relationship Specialty Start Date End Date Tico Saavedra MD PCP - General Family Medicine 12/25/11 Commercial Interior Designer Relationship Specialty Start Date End Date Tico Saavedra MD PCP - General Family Medicine 12/25/11 10/09/22 INFORMATION SOURCE (unrecogn ized section and content) FOR RECORDS PERTAINING TO PATIENTS WHO ARE OR HAVE BEEN ENROLLED IN A CHEMICAL DEPENDENCY/SUBSTANCEABUSE PROGRAM, SOME INFORMATION MAY BE OMITTED. This clinical summary was aggregated from multiple sources. Caution should be exercised in using it in the provision of clinical care. This summary normalizes information from multiple sources, and as a consequence, information in this document may materially change the coding, format and clinical context of patient data. In addition, data may be omitted in some cases. CLINICAL DECISIONS SHOULD BE BASED ON THE PRIMARY CLINICAL RECORDS. [facility]. provides no warranty or guarantee of the accuracy or completeness of information in this document.
[2023-09-19 11:45] LABS: Hemoglobin A1c 7.1 % (3.8-5.6)
[2023-09-19 11:46] LABS: AST(SGOT) 19 U/L (15-37); Alanine Aminotransfer ALT/SGPT 25 U/L (13-56); Anion Gap 7 (5-15); BUN 17 mg/dL (7-18); BUN/Creat Ratio 27.4 RATIO (10-20); Calcium,Total 8.8 mg/dL (8.5-10.1); Chloride 104 mmol/L (98-107); Cholesterol 137 mg/dL (200); Creatinine, Serum 0.62 mg/dL (0.55-1.02); EST Glomerular Filtration Rate 110 mL/min (>60); Est Glom Filt Rate - Afr Amer 133 mL/min (>60); Glucose 219 mg/dL (74-106); High Density Lipoprotein 30 mg/dL; Potassium 3.5 mmol/L (3.5-5.1); Sodium Level 139 mmol/L (136-145); Triglycerides 341 mg/dL; Very Low Density Lipoprotein 68 mg/dL (5-40)
== END | disposition home or self-care (01) ==
LOC: LAB 10:13
PROVIDERS: PCP Internal Medicine; Referring Provider Internal Medicine Endocrinology, Diabetes & Metabolism; Visit Provider Internal Medicine Endocrinology, Diabetes & Metabolism
DX: E11.9 Type 2 diabetes mellitus without complications (principal); E78.2 Mixed hyperlipidemia
CPT/HCPCS: 36415; 80048; 80061; 83036; 84450; 84460

== ENCOUNTER → 2023-10-23 | Outpatient (CLI) | payer BC, OTHER, SELFPAY ==
[2023-10-23 17:32] LABS: Anion Gap 8 (5-15); BUN 15 mg/dL (7-18); BUN/Creat Ratio 23.6 RATIO (10-20); Calcium,Total 10.2 mg/dL (8.5-10.1); Chloride 101 mmol/L (98-107); Creatinine, Serum 0.64 mg/dL (0.55-1.02); EST Glomerular Filtration Rate 107 mL/min (>60); Est Glom Filt Rate - Afr Amer 129 mL/min (>60); Glucose 198 mg/dL (74-106); Potassium 4.1 mmol/L (3.5-5.1); Sodium Level 140 mmol/L (136-145)
== END | disposition home or self-care (01) ==
LOC: BIMLAB 14:50
PROVIDERS: PCP Internal Medicine; Referring Provider Internal Medicine; Visit Provider Internal Medicine
DX: I10 Essential (primary) hypertension (principal)
CPT/HCPCS: 36415; 80048

== ENCOUNTER → 2023-11-19 | Outpatient (CLI) | payer BC, OTHER, SELFPAY ==
--- NOTE | 2023-11-19 14:37 | ART_ITS ---
Reason For Study: PVD Procedure A bilateral lower extremity continuous wave Doppler with analog waveform analysis,segmental pressures,and ankle brachial indexes with exercise. Left Segmental Pressures Left brachial= 108mmHg. Left posterior tibial artery = 126mmHg. Left dorsalis pedis artery = 109mmHg. Left digit = 73 mmHg. The left posterior tibial artery waveforms are triphasic. The left dorsalis pedis waveforms are triphasic. Right Segmental Pressures Right brachial= 118mmHg. Right posterior tibial artery = 123mmHg. Right dorsalis pedis artery = 99mmHg. Right digit = 75 mmHg. The right posterior tibial artery waveforms are triphasic. The right dorsalis pedis waveforms are triphasic. Indices The right ankle brachial index by the posterior tibial artery is 1.04. The right ankle brachial index by the dorsalis pedis is 0.84. The right digital-brachial index is 0.64. The right ankle brachial index by the posterior tibial artery post exercise is 1.05. The left ankle brachial index by the posterior tibial artery is 1.07. The left ankle brachial index by the dorsalis pedis is 0.92. The left digital-brachial index is 0.62. The left posterior tibial artery index post exercise is 1.03. VL/Lower Ext Art Exam w/ Exercise Interpretation Summary Right IVANA 1.04, normal. Doppler/PVR waveforms of the right leg normal at rest. TBI diminished, pedal/digit disease vs spasm. Right lower extremity exhibits normal response to exercise. Left IVANA 1.07, normal. Doppler/PVR waveforms of the left leg normal at rest. TB I diminished, pedal/digit disease vs spasm. Left lower extremity exhibits normal response to exercise. Ordering Physician: Chris Leslie Referring Physician: Rogers Bellamy Performed By: Prince Nieto RVT
== END | disposition home or self-care (01) ==
LOC: CVS 14:36
PROVIDERS: PCP Internal Medicine; Referring Provider Podiatrist; Visit Provider Podiatrist
DX: I73.9 Peripheral vascular disease, unspecified (principal)
CPT/HCPCS: 93924

== ENCOUNTER → 2023-12-19 | Outpatient (CLI) | payer BC, OTHER, SELFPAY ==
[2023-12-19 11:39] LABS: Anion Gap 9 (5-15); BUN 18 mg/dL (7-18); BUN/Creat Ratio 20.1 RATIO (10-20); Calcium,Total 9.6 mg/dL (8.5-10.1); Chloride 99 mmol/L (98-107); Creatinine, Serum 0.89 mg/dL (0.55-1.02); EST Glomerular Filtration Rate 72 mL/min (>60); Est Glom Filt Rate - Afr Amer 87 mL/min (>60); Glucose 331 mg/dL (74-106); Potassium 3.4 mmol/L (3.5-5.1); Sodium Level 135 mmol/L (136-145)
== END | disposition home or self-care (01) ==
LOC: LAB 11:09
PROVIDERS: PCP Internal Medicine; Referring Provider Internal Medicine; Visit Provider Internal Medicine
DX: I10 Essential (primary) hypertension (principal)
CPT/HCPCS: 36415; 80048

== ENCOUNTER → 2024-02-23 | Outpatient (CLI) | payer BC, OTHER, SELFPAY ==
[2024-02-23 14:06] LABS: AST(SGOT) 20 U/L (15-37); Alanine Aminotransfer ALT/SGPT 29 U/L (13-56); Anion Gap 12 (5-15); BUN 18 mg/dL (7-18); BUN/Creat Ratio 23.7 RATIO (10-20); Calcium,Total 10.3 mg/dL (8.5-10.1); Chloride 100 mmol/L (98-107); Creatinine, Serum 0.76 mg/dL (0.55-1.02); EST Glomerular Filtration Rate 87 mL/min (>60); Est Glom Filt Rate - Afr Amer 105 mL/min (>60); Glucose 186 mg/dL (74-106); Potassium 3.4 mmol/L (3.5-5.1); Sodium Level 135 mmol/L (136-145)
[2024-02-23 14:42] LABS: Hemoglobin A1c 7.5 % (3.8-5.6)
== END | disposition home or self-care (01) ==
LOC: LAB 11:48
PROVIDERS: PCP Internal Medicine; Referring Provider Internal Medicine Endocrinology, Diabetes & Metabolism; Visit Provider Internal Medicine Endocrinology, Diabetes & Metabolism
DX: E11.9 Type 2 diabetes mellitus without complications (principal); E78.2 Mixed hyperlipidemia; I10 Essential (primary) hypertension
CPT/HCPCS: 36415; 80048; 83036; 84450; 84460

== ENCOUNTER → 2024-02-25 | Outpatient (CLI) | payer BC, OTHER, SELFPAY ==
[2024-02-25 12:46] LABS: Anion Gap 10 (5-15); BUN 19 mg/dL (7-18); BUN/Creat Ratio 27.6 RATIO (10-20); Calcium,Total 9.7 mg/dL (8.5-10.1); Chloride 101 mmol/L (98-107); Creatinine, Serum 0.69 mg/dL (0.55-1.02); EST Glomerular Filtration Rate 97 mL/min (>60); Est Glom Filt Rate - Afr Amer 118 mL/min (>60); Glucose 228 mg/dL (74-106); Potassium 3.7 mmol/L (3.5-5.1); Sodium Level 137 mmol/L (136-145)
[2024-02-25 12:50] LABS: PTHIN 30.2 pg/mL (18.4-80.1)
== END | disposition home or self-care (01) ==
PROVIDERS: PCP Internal Medicine; Referring Provider Internal Medicine Endocrinology, Diabetes & Metabolism; Visit Provider Internal Medicine Endocrinology, Diabetes & Metabolism
DX: E11.9 Type 2 diabetes mellitus without complications (principal); E21.5 Disorder of parathyroid gland, unspecified
CPT/HCPCS: 36415; 80048; 83970

== ENCOUNTER → 2024-05-21 | Outpatient (CLI) | payer BC, OTHER, SELFPAY ==
[2024-05-21 10:18] LABS: Absolute Lymphocyte Count 2.37 X10^3/uL (0.83-4.51); Absolute Neutrophil Count 5.9 X10^3/uL (2.0-7.7); Basophil# 0.05 X10^3/uL; Basophil% 0.5 % (0-1); Eosinophil# 0.07 X10^3/uL; Eosinophils% 0.8 % (0-5); Hematocrit 46.1 % (37-47); Hemoglobin 15.2 g/dL (12.0-15.0); Lymphocyte # 2.37 X10^3/ul (0.83-4.51); Lymphocyte % 25.9 % (19-41); Mean Corpuscular Hgb 31.2 pg (27.0-32.0); Mean Corpuscular Volume 94.7 fL (81-99); Mean Platelet Vol. 9.2 fl (6.2-12.0); Monocyte# 0.66 X10^3/uL; Monocyte% 7.2 % (0-10); NRBC Flagged by Analyzer 0 % (0-5); Neutrophil # 5.93 X10^3/uL (2.7-7.7); Neutrophil % 64.7 % (47-70); Platelet Count 375 K/mm3 (150-450); RBC Distribution Width CV 11.6 % (11.6-14.6); Red Blood Count 4.87 M/mm3 (4.2-5.4); White Blood Count 9.2 K/mm3 (4.4-11.0)
[2024-05-21 10:50] LABS: AST(SGOT) 18 U/L (15-37); Alanine Aminotransfer ALT/SGPT 25 U/L (13-56); Albumin, Serum 3.8 g/dL (3.2-5.0); Alkaline Phosphatase 72 U/L (45-117); Anion Gap 7 (5-15); BUN 20 mg/dL (7-18); BUN/Creat Ratio 26.3 RATIO (10-20); Bilirubin, Direct 0.12 mg/dL (0.00-0.30); Calcium,Total 9.4 mg/dL (8.5-10.1); Chloride 101 mmol/L (98-107); Creatinine, Serum 0.76 mg/dL (0.55-1.02); EST Glomerular Filtration Rate 87 mL/min (>60); Est Glom Filt Rate - Afr Amer 105 mL/min (>60); Glucose 217 mg/dL (74-106); Potassium 3.4 mmol/L (3.5-5.1); Protein, Total 7.8 g/dL (6.4-8.2); Sodium Level 136 mmol/L (136-145)
[2024-05-21 10:59] LABS: Microalbumin,Random Urine < 5.0 mg/L (NO RANGE EST.)
[2024-05-23 08:04] LABS: Hemoglobin A1c 6.5 % (3.8-5.6)
== END | disposition home or self-care (01) ==
LOC: LAB 09:30
PROVIDERS: Internal Medicine Gastroenterology; PCP Internal Medicine; Referring Provider Internal Medicine Endocrinology, Diabetes & Metabolism; Visit Provider Internal Medicine Endocrinology, Diabetes & Metabolism
DX: E11.9 Type 2 diabetes mellitus without complications (principal); K76.0 Fatty (change of) liver, not elsewhere classified
CPT/HCPCS: 36415; 80048; 80076; 82043; 82570; 83036; 85025

== ENCOUNTER → 2024-07-28 | Outpatient (CLI) | payer BC, OTHER, SELFPAY | END | disposition home or self-care (01) | LOC: OPBI 07-29 07:35 | PROVIDERS: PCP Internal Medicine; Referring Provider Internal Medicine; Visit Provider Internal Medicine | DX: Z12.31 Encounter for screening mammogram for malignant neoplasm of breast (principal) | CPT/HCPCS: 77063; 77067 ==

== ENCOUNTER → 2024-08-27 | Outpatient (CLI) | payer BC, OTHER, SELFPAY ==
[2024-08-27 12:09] LABS: AST(SGOT) 17 U/L (15-37); Alanine Aminotransfer ALT/SGPT 26 U/L (13-56); Anion Gap 8 (5-15); BUN 17 mg/dL (7-18); BUN/Creat Ratio 24.7 RATIO (10-20); Calcium,Total 9.6 mg/dL (8.5-10.1); Chloride 100 mmol/L (98-107); Creatinine, Serum 0.69 mg/dL (0.55-1.02); EST Glomerular Filtration Rate 97 mL/min (>60); Est Glom Filt Rate - Afr Amer 118 mL/min (>60); Glucose 225 mg/dL (74-106); Potassium 4.1 mmol/L (3.5-5.1); Sodium Level 138 mmol/L (136-145)
[2024-08-27 12:16] LABS: Hemoglobin A1c 7.1 % (3.8-5.6)
== END | disposition home or self-care (01) ==
LOC: LAB 11:02
PROVIDERS: PCP Internal Medicine; Referring Provider Internal Medicine Endocrinology, Diabetes & Metabolism; Visit Provider Internal Medicine Endocrinology, Diabetes & Metabolism
DX: E11.9 Type 2 diabetes mellitus without complications (principal)
CPT/HCPCS: 36415; 80048; 83036; 84450; 84460

== ENCOUNTER → 2024-09-05 | Outpatient (CLI) | payer BC, OTHER, SELFPAY ==
--- NOTE | 2024-09-05 09:41 | US_ITS ---
STUDY: ABDOMINAL ULTRASOUND - RIGHT UPPER QUADRANT; ELASTOGRAPHY REASON FOR VISIT: Female, 49 years old. Fatty infiltration of liver. TECHNIQUE: Ultrasound evaluation of the right upper quadrant was performed with real-time and static bolden-scale imaging. Point quantification shear wave elastography was performed ([employer]). TECHNICAL QUALITY: Adequate. COMPARISON: Comparison is made with prior study dated September 02, 2023. FINDINGS: Liver: The liver is enlarged at measures 20.9 cm. There is increased echogenicity consistent with fatty infiltration. The bile ducts are within normal limits. There is hepatic color flow. The direction of portal flow is hepatopetal. There is no demonstrated mass lesion. Median liver stiffness measured 6.2 kPa. Gallbladder: Normal distended gallbladder. The gallbladder wall measures 3.0 mm. There is a negative sonographic Shaver''s sign. There is no pericholecystic fluid. There is a solitary echogenic gallstone within the gallbladder. Common Bile Duct (C.B.D.): The common bile duct measures 4.2 mm. Pancreas: There is normal echogenicity of the visualized pancreas. There is no demonstrated pancreatic mass or cyst. Right Kidney: Normal size of the right kidney. The right kidney measures 11.8 cm x 6 cm x 5.5 cm. Normal renal cortex. The right cortex measures 2.0 cm. There is a 2.2 cm x 2.3 cm by 1.2 cm right renal cyst. There is no right hydronephrosis. US/ABD Limited w/ Elastography IMPRESSION: 1. Liver stiffness measures 6.2 kPa compatible with F2-F3 (Mild to moderate liver fibrosis) Metavir score. Essentially stable examination. 2. Hepatomegaly and fatty inflammation liver. 3. Right renal cyst. Electronically Signed: Adán East MD at 13:06 EST ,
== END | disposition home or self-care (01) ==
PROVIDERS: PCP Internal Medicine; Referring Provider Internal Medicine Gastroenterology; Visit Provider Internal Medicine Gastroenterology
DX: K76.0 Fatty (change of) liver, not elsewhere classified (principal)
CPT/HCPCS: 76705; 76981

== ENCOUNTER 2024-09-09 10:45 | Day surgery (SDC) | payer BC, OTHER, SELFPAY ==
--- NOTE | 2024-09-08 11:29 | PAT.ANESEVAL ---
Pre-Assessment Diagnosis/Proposed Procedure Planned Operative Procedure(s): COLONOSCOPY-OA Anesthesia History Anesthesia History - financial foundations representative: Anesthesia History - financial foundations representative Hx Hospitalization No 09/08/24 11:07 Any Problems With Anesthesia Yes: DURING LIVER BX- MED 09/08/24 11:07 DIDN'T WORK Cholinesterase deficiency No 09/08/24 11:07 You/Your Family Experience No 09/08/24 11:07 fever (hyperthermia) with Relationship Recent Exposure to Contagious Disease Does patient have nerve No 09/08/24 11:07 stimulator Patient instructed to have device shut off --Does patient have Pacemaker or ICD? When Was Last Pacemaker Check QUESTION #4 FULL TEXT: You/Your Family Experience fever (hyperthermia) with Anesthesia Last Oral Intake Last Oral intake: Last Oral Intake NPO since Meds taken in AM with sips of water? Meds patient instructed to take am of surgery PONV PONV - financial foundations representative: PONV - financial foundations representative Female Yes 09/08/24 11:07 HX of Motion Sickness No 09/08/24 11:07 HX of N/V After Surgery No 09/08/24 11:07 Non-Smoker Yes 09/08/24 11:07 Duration of Surgery greater No 09/08/24 11:07 than 60 minutes Number of Risk Factors 2 09/08/24 11:07 PONV Score Moderate Risk 09/08/24 11:07 Height & Weight Height & Weight: Anesthesia: Height & Weight Height 5 ft 11 in 07/20/24 09:33 Respiratory Assessment Respiratory Assessment - financial foundations representative: Respiratory Tract Infection Hx - financial foundations representative Hx Respiratory Tract Infection No 09/08/24 11:07 STOP Sleep Apnea STOP Sleep Apnea - financial foundations representative: STOP Sleep Apnea - financial foundations representative Hx Hypertension Yes: CONTROLLED ON MED 09/08/24 11:07 Hx Sleep Apnea Yes: BIPAP 09/08/24 11:07 CPAP No 09/08/24 11:07 BIPAP Yes 09/08/24 11:07 Do you snore loudly (louder than talking or can be heard Do you often feel tired/ fatigued/ sleepy during daytime? Has anyone observed you stop breathing during sleep? STOP Results Positive 09/08/24 11:07 QUESTION #5 FULL TEXT : Do you snore loudly (louder than talking or can be heard through closed doors)? 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 Specify any problems Hx of Preganancy in last 3 No 09/08/24 11:07 Months Nurse Filling Out Transfusion VCHRISTIN 09/08/24 11:07 & Questions: Date: 09/08/24 09/08/24 11:07 Time: 11:09 09/08/24 11:07 Patient unable to answer at this time (ie. confused, unrespo /Reproduction History /Reproductive History - financial foundations representative: /Reproductive Hx- financial foundations representative Hx Now No 09/08/24 11:07 Gestational Age (in weeks): EDC: Hx Hx Para Hx Section SAB No 09/08/24 11:07 [facility] Medical History (Updated 09/08/24 @ 11:07 by Jaquelin Emanuel) Wears glasses Depression Anxiety Injury of head and neck Non-smoker BiPAP (biphasic positive airway pressure) dependence Shortness of breath on exertion History of stress test Health care maintenance Colon cancer screening Hypokalemia Insomnia Psoriasis MDD (major depressive disorder) Acute streptococcal pharyngitis Flu vaccine need Menstrual irregularity Fatty liver disease, nonalcoholic Osteoarthritis Morbid obesity ELVIS (obstructive sleep apnea) Type 2 diabetes mellitus Chronic diarrhea History of breast lump GERD (gastroesophageal reflux disease) Raynauds disease Anxiety and depression Sleep apnea History of kidney stones Pectus excavatum Chronic neck and back pain Difficulty balancing Migraines Knee pain Severe headache Anemia Diabetes Shoulder pain Arthritis Hypertension Home Medications ?Medication ?Instructions ?Recorded ?Last Taken ?Type rizatriptan 10 mg disintegrating 10 mg PO PRN PRN Migraine Symptoms 07/01/16 10/10/21 08:00 History tablet biotin 1 mg capsule 1 mg PO DAILY 10/18/18 Unknown History cholecalciferol (vitamin D3) 25 1,000 unit PO DAILY 10/18/18 Unknown History mcg (1,000 unit) capsule magnesium 250 mg tablet 250 mg PO DAILY 10/18/18 Unknown History omega-3 fatty acids 1,000 mg 1,000 mg PO DAILY 10/18/18 Unknown History capsule (Fish Oil Concentrate) vitamin A palmitate 3,000 mcg 10,000 unit PO DAILY 10/18/18 Unknown History (10,000 unit) tablet ascorbic acid (vitamin C) 500 mg 500 mg PO DAILY 09/03/21 Unknown History capsule blood sugar diagnostic (Accu-Chek #10 ea 09/03/21 Unknown History Guide test strips) cranberry fruit concentrate 250 mg 250 mg PO DAILY 09/03/21 Unknown History chewable tablet (Azo Cranberry) lancets (Accu-Chek Fastclix Lancet #100 ea 09/03/21 Unknown History Drum) metformin 1,000 mg tablet,extended 1,000 mg PO BID 3 months #180 tabs 09/03/21 10/11/21 06:30 Rx release 24hr (osmotic) vitamin E 268 mg (400 unit) capsule 800 unit PO DAILY #60 caps 11/04/21 Unknown Rx CoQ10 200 mg PO 1XD 03/05/22 Unknown History acetaminophen 650 mg 650 mg PO Q12H PRN pain 07/10/22 Unknown History tablet,extended release (Tylenol Arthritis Pain) celecoxib 200 mg capsule (Celebrex) 200 mg PO BID 07/10/22 Unknown History ropinirole 0.25 mg tablet 0.25 mg PO QHS #30 tabs 09/29/22 Unknown Rx hydroxyzine HCl 25 mg tablet 25 mg PO BID PRN anxiety #60 tabs 11/11/23 Unknown Rx dapagliflozin propanediol 10 mg 10 mg PO QDAY 03/02/24 Unknown History tablet (Farxiga) glimepiride 2 mg tablet 2 mg PO BID 03/02/24 Unknown History multivitamin 1 tab PO DAILY 03/02/24 Unknown History hydrochlorothiazide 25 mg tablet 25 mg PO QAM #90 TABLETS 03/22/24 Unknown Rx ursodiol 250 mg tablet 250 mg PO DAILY #30 tabs 04/14/24 Unknown Rx doxepin 10 mg capsule See Rx Instructions .Route 05/18/24 Unknown Rx .COMPLEX #90 caps duloxetine 30 mg capsule,delayed See Rx Instructions .Route 05/18/24 Unknown Rx release .COMPLEX #90 caps duloxetine 60 mg capsule,delayed See Rx Instructions .Route 05/18/24 Unknown Rx release .COMPLEX #90 caps norethindrone (contraceptive) 0.35 See Rx Instructions .Route 05/19/24 Unknown Rx mg tablet .COMPLEX #84 tabs potassium chloride 20 mEq 20 meq PO DAILY #60 tabs 06/14/24 Unknown Rx tablet,extended release losartan 100 mg tablet 100 mg PO DAILY #90 tabs 07/20/24 Unknown Rx metoprolol tartrate 50 mg tablet 50 mg PO BID 3 months #180 TABLETS 08/08/24 Unknown Rx cyanocobalamin (vitamin B-12) 50 50 mcg PO DAILY 09/08/24 Unknown History mcg tablet (Vitamin B-12) Allergy/AdvReac Type Severity Reaction Status Date / Time adhesive tape (paper tape) Allergy Unknown Other Verified 09/08/24 10:53 adhesive Allergy Hives Verified 09/08/24 10:53 azithromycin (From Zithromax) Allergy Hives Verified 09/08/24 10:53 diazepam (From Valium) AdvReac Other Verified 09/08/24 10:53 lisinopril AdvReac Cough Verified 09/08/24 10:53 prednisone AdvReac Flushing Verified 09/08/24 10:53 Family History (Updated 07/20/24 @ 09:27 by Calista Garcia) Father Liver disease Other CVA (cerebral vascular accident) Cancer Depression Diabetes Hypertension Sleep apnea Surgical History History of liver biopsy History of fusion of cervical spine History of cervical spinal surgery Social History (Updated 07/20/24 @ 09:28 by Calista Garcia) household members: spouse current occupational status: employed 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 Rate : 106 BPM Atrial Rate : 106 BPM P-R Int : 130 ms QRS Dur : 086 ms QT Int : 300 ms P-R-T Axes : 036 061 -07 degrees QTc Int : 398 ms Sinus tachycardia Nonspecific T wave abnormality Abnormal ECG Confirmed by SABRA PACHECO, EYAL ([id number]), editor sound DAVINA KILGORE ([id number]) on 05/17/2019 10:36:33 AM Referred By: KAVITA Confirmed By:HOME MONTAÑO MD Recommendation Anesthesia Recommendation Anesthesia recommendation: OPTIMIZED for anesthesia
[2024-09-09] VITALS (8 sets, daily range): BP systolic 85–131; BP diastolic 48–99; PULSE 68–96; RESP 16–17; TEMP 36–36.3; O2SAT 97–100; BMI 42.0
--- NOTE | 2024-09-09 10:54 | PRE.ANES_ITS ---
ASA Classification* ASA Classification ASA Classification: 3 Assessment & Plan Anesthesia* Anesthesia Assessment Anesthesia Assessment: Discussed sedation and/or anesthesia options, risks, benefits, and alternatives with patient/parents/legal guardian/POA. Questions invited. The patient/parents/legal guardian/POA seems to understand and agrees to proceed with anesthesia plan. Reviewed the physical assessment, medical history, allergy history and patient home medications list prior to surgery/procedure/anesthetic and documented any changes. Performed airway and anesthesia risk assessments. Anesthesia Type Anesthesia Type: MAC Anesthesia Focused Assessment* Airway Assessment Mouth opens: >3 cm Mallampati Score: II Focused Labs Anesthesia Preop lab: CBC WBC 9.2 K/mm3 (4.4-11.0) 05/21/24 09:36 RBC 4.87 M/mm3 (4.2-5.4) 05/21/24 09:36 Hgb 15.2 g/dL (12.0-15.0) H 05/21/24 09:36 Hct 46.1 % (37-47) 05/21/24 09:36 Plt Count 375 K/mm3 (150-450) 05/21/24 09:36 CHEMISTRY Potassium 4.1 mmol/L (3.5-5.1) 08/27/24 11:03 Sodium 138 mmol/L (136-145) 08/27/24 11:03 Magnesium 2.0 mg/dL (1.6-2.6) 07/06/20 16:10 BUN 17 mg/dL (7-18) 08/27/24 11:03 Creatinine 0.69 mg/dL (0.55-1.02) 08/27/24 11:03 Glucose 225 mg/dL (74-106) H 08/27/24 11:03 TSH 1.12 uIU/mL (0.358-3.74) 01/03/23 09:45 COAG PT 12.2 SECONDS (11.7-14.9) 10/11/21 07:37 Pre-Assessment Diagnosis/Proposed Procedure Planned Operative Procedure(s): COLONOSCOPY-OA Anesthesia History Anesthesia History - natural resources manager: Anesthesia History - natural resources manager Hx Hospitalization No 09/08/24 11:07 Any Problems With Anesthesia Yes: DURING LIVER BX- MED 09/08/24 11:07 DIDN'T WORK Cholinesterase deficiency No 09/08/24 11:07 You/Your Family Experience No 09/08/24 11:07 fever (hyperthermia) with Relationship Recent Exposure to Contagious Disease Does patient have nerve No 09/08/24 11:07 stimulator Patient instructed to have device shut off --Does patient have Pacemaker or ICD? When Was Last Pacemaker Check QUESTION #4 FULL TEXT: You/Your Family Experience fever (hyperthermia) with Anesthesia Last Oral Intake Last Oral intake: Last Oral Intake NPO since Meds taken in AM with sips of water? Meds patient instructed to take am of surgery PONV PONV - natural resources manager: PONV - natural resources manager Female Yes 09/08/24 11:07 HX of Motion Sickness No 09/08/24 11:07 HX of N/V After Surgery No 09/08/24 11:07 Non-Smoker Yes 09/08/24 11:07 Duration of Surgery greater No 09/08/24 11:07 than 60 minutes Number of Risk Factors 2 09/08/24 11:07 PONV Score Moderate Risk 09/08/24 11:07 Height & Weight Height & Weight: Anesthesia: Height & Weight Height 5 ft 11 in 07/20/24 09:33 Respiratory Assessment Respiratory Assessment - natural resources manager: Respiratory Tract Infection Hx - natural resources manager Hx Respiratory Tract Infection No 09/08/24 11:07 STOP Sleep Apnea STOP Sleep Apnea - natural resources manager: STOP Sleep Apnea - natural resources manager Hx Hypertension Yes: CONTROLLED ON MED 09/08/24 11:07 Hx Sleep Apnea Yes: BIPAP 09/08/24 11:07 CPAP No 09/08/24 11:07 BIPAP Yes 09/08/24 11:07 Do you snore loudly (louder than talking or can be heard Do you often feel tired/ fatigued/ sleepy during daytime? Has anyone observed you stop breathing during sleep? STOP Results Positive 09/08/24 11:07 QUESTION #5 FULL TEXT : Do you snore loudly (louder than talking or can be heard through closed doors)? Tobacco Use History Tobacco Use History - natural resources manager: Tobacco Use History - natural resources manager Tobacco Use Smoking Status Never smoker 09/08/24 11:07 Hx Tobacco Use No 09/08/24 11:07 Years Smoking Packs Smoked per Day Smoking Cessation Date was within the last 15 years Hx Smoking Cessation Date Hx Smoking Cessation Counseling Hematologic Medial History Hematologic Hx - natural resources manager: Hematologic Medical Hx - brand mgr Hx of Blood Transfusion No 09/08/24 11:07 Hx of Transfusion in last 3 No 09/08/24 11:07 Months Date of Last Transfusion (if within last 3 months) Ever experience any problems No 09/08/24 11:07 with transfusion(s)? Specify any problems Hx of Preganancy in last 3 No 09/08/24 11:07 Months Nurse Filling Out Transfusion VCHRISTIN 09/08/24 11:07 & Questions: Date: 09/08/24 09/08/24 11:07 Time: 11:09 09/08/24 11:07 Patient unable to answer at this time (ie. confused, unrespo /Reproduction History /Reproductive History - natural resources manager: /Reproductive Hx- natural resources manager Hx Now No 09/08/24 11:07 Gestational Age (in weeks): EDC: Hx Hx Para Hx Section SAB No 09/08/24 11:07 FOR[facility]LY [facility], [facility] Medical History Wears glasses Depression Anxiety Injury of head and neck Non-smoker BiPAP (biphasic positive airway pressure) dependence Shortness of breath on exertion History of stress test Health care maintenance Colon cancer screening Hypokalemia Insomnia Psoriasis MDD (major depressive disorder) Acute streptococcal pharyngitis Flu vaccine need Menstrual irregularity Fatty liver disease, nonalcoholic Osteoarthritis Morbid obesity ELVIS (obstructive sleep apnea) Type 2 diabetes mellitus Chronic diarrhea History of breast lump GERD (gastroesophageal reflux disease) Raynauds disease Anxiety and depression Sleep apnea History of kidney stones Pectus excavatum Chronic neck and back pain Difficulty balancing Migraines Knee pain Severe headache Anemia Diabetes Shoulder pain Arthritis Hypertension Home Medications ?Medication ?Instructions ?Recorded ?Last Taken ?Type rizatriptan 10 mg disintegrating 10 mg PO PRN PRN Migraine Symptoms 07/01/16 09/08/24 History tablet biotin 1 mg capsule 1 mg PO DAILY 10/18/18 09/08/24 History cholecalciferol (vitamin D3) 25 1,000 unit PO DAILY 10/18/18 09/08/24 History mcg (1,000 unit) capsule magnesium 250 mg tablet 250 mg PO DAILY 10/18/18 09/08/24 History omega-3 fatty acids 1,000 mg 1,000 mg PO DAILY 10/18/18 09/08/24 History capsule (Fish Oil Concentrate) vitamin A palmitate 3,000 mcg 10,000 unit PO DAILY 10/18/18 09/08/24 History (10,000 unit) tablet ascorbic acid (vitamin C) 500 mg 500 mg PO DAILY 09/03/21 09/08/24 History capsule blood sugar diagnostic (Accu-Chek #10 ea 09/03/21 Unknown History Guide test strips) cranberry fruit concentrate 250 mg 250 mg PO DAILY 09/03/21 09/08/24 History chewable tablet (Azo Cranberry) lancets (Accu-Chek Fastclix Lancet #100 ea 09/03/21 Unknown History Drum) metformin 1,000 mg tablet,extended 1,000 mg PO BID 3 months #180 tabs 09/03/21 09/08/24 Rx release 24hr (osmotic) vitamin E 268 mg (400 unit) capsule 800 unit PO DAILY #60 caps 11/04/21 09/08/24 Rx CoQ10 200 mg PO 1XD 03/05/22 09/08/24 History acetaminophen 650 mg 650 mg PO Q12H PRN pain 07/10/22 Unknown History tablet,extended release (Tylenol Arthritis Pain) celecoxib 200 mg capsule (Celebrex) 200 mg PO BID 07/10/22 09/08/24 History ropinirole 0.25 mg tablet 0.25 mg PO QHS #30 tabs 09/29/22 09/08/24 Rx hydroxyzine HCl 25 mg tablet 25 mg PO BID PRN anxiety #60 tabs 11/11/23 09/08/24 Rx dapagliflozin propanediol 10 mg 10 mg PO QDAY 03/02/24 09/08/24 History tablet (Farxiga) glimepiride 2 mg tablet 2 mg PO BID 03/02/24 09/08/24 History multivitamin 1 tab PO DAILY 03/02/24 09/08/24 History hydrochlorothiazide 25 mg tablet 25 mg PO QAM #90 TABLETS 03/22/24 09/08/24 Rx ursodiol 250 mg tablet 250 mg PO DAILY #30 tabs 04/14/24 09/08/24 Rx doxepin 10 mg capsule See Rx Instructions .Route 05/18/24 09/08/24 Rx .COMPLEX #90 caps duloxetine 30 mg capsule,delayed See Rx Instructions .Route 05/18/24 09/08/24 Rx release .COMPLEX #90 caps duloxetine 60 mg capsule,delayed See Rx Instructions .Route 05/18/24 09/08/24 Rx release .COMPLEX #90 caps norethindrone (contraceptive) 0.35 See Rx Instructions .Route 05/19/24 09/08/24 Rx mg tablet .COMPLEX #84 tabs potassium chloride 20 mEq 20 meq PO DAILY #60 tabs 06/14/24 09/08/24 Rx tablet,extended release losartan 100 mg tablet 100 mg PO DAILY #90 tabs 07/20/24 09/09/24 Rx metoprolol tartrate 50 mg tablet 50 mg PO BID 3 months #180 TABLETS 08/08/24 09/09/24 Rx cyanocobalamin (vitamin B-12) 50 50 mcg PO DAILY 09/08/24 09/08/24 History mcg tablet (Vitamin B-12) Allergy/AdvReac Type Severity Reaction Status Date / Time adhesive tape (paper tape) Allergy Unknown Other Verified 09/09/24 10:50 adhesive Allergy Hives Verified 09/09/24 10:50 azithromycin (From Zithromax) Allergy Hives Verified 09/09/24 10:50 diazepam (From Valium) AdvReac Other Verified 09/09/24 10:50 lisinopril AdvReac Cough Verified 09/09/24 10:50 prednisone AdvReac [place] Verified 09/09/24 10:50 Family History Father Liver disease Other CVA (cerebral vascular accident) Cancer Depression Diabetes Hypertension Sleep apnea Surgical History History of liver biopsy History of fusion of cervical spine History of cervical spinal surgery Social History household members: spouse current occupational status: employed 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
[2024-09-09 11:03] LABS: Internal QC Validated? YES +Cl - CLEAR BKGD; Pregnancy, Urine Negative Negative
--- NOTE | 2024-09-09 11:33 | PCM.HP.STD ---
HPI - General General Date of Admission: 09/09/24 Date of Service: 09/09/24 Chief Complaint: Screening colon HPI Narrative AYDEN STALLWORTH, is a 49 F who presents today for a screening colonoscopy. 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 She is not having any medical problems at this time. [facility] Medical History Wears glasses Depression Anxiety Injury of head and neck Non-smoker BiPAP (biphasic positive airway pressure) dependence Shortness of breath on exertion History of stress test Health care maintenance Colon cancer screening Hypokalemia Insomnia Psoriasis MDD (major depressive disorder) Acute streptococcal pharyngitis Flu vaccine need Menstrual irregularity Fatty liver disease, nonalcoholic Osteoarthritis Morbid obesity ELVIS (obstructive sleep apnea) Type 2 diabetes mellitus Chronic diarrhea History of breast lump GERD (gastroesophageal reflux disease) Raynauds disease Anxiety and depression Sleep apnea History of kidney stones Pectus excavatum Chronic neck and back pain Difficulty balancing Migraines Knee pain Severe headache Anemia Diabetes Shoulder pain Arthritis Hypertension Home Medications ?Medication ?Instructions ?Recorded ?Last Taken ?Type rizatriptan 10 mg disintegrating 10 mg PO PRN PRN Migraine Symptoms 07/01/16 09/08/24 History tablet biotin 1 mg capsule 1 mg PO DAILY 10/18/18 09/08/24 History cholecalciferol (vitamin D3) 25 1,000 unit PO DAILY 10/18/18 09/08/24 History mcg (1,000 unit) capsule magnesium 250 mg tablet 250 mg PO DAILY 10/18/18 09/08/24 History omega-3 fatty acids 1,000 mg 1,000 mg PO DAILY 10/18/18 09/08/24 History capsule (Fish Oil Concentrate) vitamin A palmitate 3,000 mcg 10,000 unit PO DAILY 10/18/18 09/08/24 History (10,000 unit) tablet ascorbic acid (vitamin C) 500 mg 500 mg PO DAILY 09/03/21 09/08/24 History capsule blood sugar diagnostic (Accu-Chek #10 ea 09/03/21 Unknown History Guide test strips) cranberry fruit concentrate 250 mg 250 mg PO DAILY 09/03/21 09/08/24 History chewable tablet (Azo Cranberry) lancets (Accu-Chek Fastclix Lancet #100 ea 09/03/21 Unknown History Drum) metformin 1,000 mg tablet,extended 1,000 mg PO BID 3 months #180 tabs 09/03/21 09/08/24 Rx release 24hr (osmotic) vitamin E 268 mg (400 unit) capsule 800 unit PO DAILY #60 caps 11/04/21 09/08/24 Rx CoQ10 200 mg PO 1XD 03/05/22 09/08/24 History acetaminophen 650 mg 650 mg PO Q12H PRN pain 07/10/22 Unknown History tablet,extended release (Tylenol Arthritis Pain) celecoxib 200 mg capsule (Celebrex) 200 mg PO BID 07/10/22 09/08/24 History ropinirole 0.25 mg tablet 0.25 mg PO QHS #30 tabs 09/29/22 09/08/24 Rx hydroxyzine HCl 25 mg tablet 25 mg PO BID PRN anxiety #60 tabs 11/11/23 09/08/24 Rx dapagliflozin propanediol 10 mg 10 mg PO QDAY 03/02/24 09/08/24 History tablet (Farxiga) glimepiride 2 mg tablet 2 mg PO BID 03/02/24 09/08/24 History multivitamin 1 tab PO DAILY 03/02/24 09/08/24 History hydrochlorothiazide 25 mg tablet 25 mg PO QAM #90 TABLETS 03/22/24 09/08/24 Rx ursodiol 250 mg tablet 250 mg PO DAILY #30 tabs 04/14/24 09/08/24 Rx doxepin 10 mg capsule See Rx Instructions .Route 05/18/24 09/08/24 Rx .COMPLEX #90 caps duloxetine 30 mg capsule,delayed See Rx Instructions .Route 05/18/24 09/08/24 Rx release .COMPLEX #90 caps duloxetine 60 mg capsule,delayed See Rx Instructions .Route 05/18/24 09/08/24 Rx release .COMPLEX #90 caps norethindrone (contraceptive) 0.35 See Rx Instructions .Route 05/19/24 09/08/24 Rx mg tablet .COMPLEX #84 tabs potassium chloride 20 mEq 20 meq PO DAILY #60 tabs 06/14/24 09/08/24 Rx tablet,extended release losartan 100 mg tablet 100 mg PO DAILY #90 tabs 07/20/24 09/09/24 Rx metoprolol tartrate 50 mg tablet 50 mg PO BID 3 months #180 TABLETS 08/08/24 09/09/24 Rx cyanocobalamin (vitamin B-12) 50 50 mcg PO DAILY 09/08/24 09/08/24 History mcg tablet (Vitamin B-12) Allergy/AdvReac Type Severity Reaction Status Date / Time adhesive tape (paper tape) Allergy Unknown Other Verified 09/09/24 11:15 adhesive Allergy Hives Verified 09/09/24 11:15 azithromycin (From Zithromax) Allergy Hives Verified 09/09/24 11:15 diazepam (From Valium) AdvReac Other Verified 09/09/24 11:15 lisinopril AdvReac Cough Verified 09/09/24 11:15 prednisone AdvReac [place] Verified 09/09/24 11:15 Family History Father Liver disease Other CVA (cerebral vascular accident) Cancer Depression Diabetes Hypertension Sleep apnea Surgical History History of liver biopsy History of fusion of cervical spine History of cervical spinal surgery Social History household members: spouse current occupational status: employed 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 Smoking Status: Never smoker alcohol intake: never substance use type: does not use what type of physical activity do you participate in: none Vital Signs Vital Signs Vital Signs: 09/09/24 11:15 09/09/24 11:15 Temperature 96.8 F L Temperature Source Temporal Pulse Rate 96 Respiratory Rate 17 Respiratory Pattern Normal Blood Pressure 131/99 H Blood Pressure Mean 109 Blood Pressure Source Monitor Blood Pressure Position Semi-Fowlers Blood Pressure Location Right Forearm Pulse Ox 99 Oxygen Delivery Method Room Air Weight Weight: 293 lb 3.437 oz Body Mass Index (BMI) 42.0 Physical Exam Const alert, oriented x3, no apparent distress and healthy appearing General Appearance: cooperative GI normal to inspection, nondistended, normoactive bowel sounds, soft to palpation, non-tender and non-distended Percussion: normal to percussion Rectal Exam: deferred Results Lab / Micro Data Labs: Laboratory Results - last 24 hr 09/09/24 10:55: Urine Test Negative Assessment & Plan Assessment/Plan (1) Colon cancer screening: PLAN: She will undergo colonoscopy for the time. She was explained alternatives, risk, benefits include not withstanding bleeding, infection, sepsis, perforation, need for more charge and . She will have an ASA of 3.
[2024-09-09 11:38] LABS: Bedside Glucose 222 mg/dL (74-106)
--- NOTE | 2024-09-09 12:46 | OP.COLON_ITS ---
Patient Name: Joanne Stephenson Procedure Date: 09/09/2024 11:01 AM Date of : 1975 Age: 49 Procedure: Colonoscopy Indications: Screening for colorectal malignant neoplasm Providers: Marino Trotter DO Referring MD: Rogers Bellamy MD Medicines: Monitored Anesthesia Care Patient Profile: This is a 49 year old female. Refer to note in patient chart for documentation of history and physical. Last Colonoscopy: none. The patient's first colonoscopy is today. Complications: No immediate complications. Procedure: Pre-Anesthesia Assessment: - Prior to the procedure, a History and Physical was performed, and patient medications and allergies were reviewed. The patient is competent. The risks and benefits of the procedure and the sedation options and risks were discussed with the patient. All questions were answered and informed consent was obtained. Patient identification and proposed procedure were verified by the physician in the pre-procedure area. Mental Status Examination: alert and oriented. Airway Examination: normal oropharyngeal airway and neck mobility. Respiratory Examination: clear to auscultation. CV Examination: normal. Prophylactic Antibiotics: The patient does not require prophylactic antibiotics. Prior Anticoagulants: The patient has taken no anticoagulant or antiplatelet agents except for NSAID medication. ASA Grade Assessment: II - A patient with mild systemic disease. After reviewing the risks and benefits, the patient was deemed in satisfactory condition to undergo the procedure. The anesthesia plan was to use monitored anesthesia care (MAC). Immediately prior to administration of medications, the patient was re-assessed for adequacy to receive sedatives. The heart rate, respiratory rate, oxygen saturations, blood pressure, adequacy of pulmonary ventilation, and response to care were monitored throughout the procedure. The physical status of the patient was re-assessed after the procedure. After I obtained informed consent, the scope was passed under direct vision. Throughout the procedure, the patient's blood pressure, pulse, and oxygen saturations were monitored continuously. The Colonoscope was introduced through the anus and advanced to the cecum, identified by appendiceal orifice and ileocecal valve. The colonoscopy was performed without difficulty. The patient tolerated the procedure well. The quality of the bowel preparation was adequate. The ileocecal valve, appendiceal orifice, and rectum were photographed. Scope In: 12:16:28 PM Scope Withdrawal Time 0 hours 10 minutes 25 seconds Scope Out: 12:39:45 PM Total Procedure Duration Time 0 hours 23 minutes 17 seconds Findings: The perianal and digital rectal examinations were normal. The colon (entire examined portion) appeared normal. A few small-mouthed diverticula were found in the sigmoid colon. Impression: - The entire examined colon is normal. - Diverticulosis in the sigmoid colon. - No specimens collected. Recommendation: - Discharge patient to home. - Resume previous diet. - Continue present medications. - Repeat colonoscopy in 10 years for screening purposes. Procedure Code(s): --- Professional --- G0121, Colorectal cancer screening; colonoscopy on individual not meeting criteria for high risk CPT copyright 2021 [employer]. All rights reserved. The codes documented in this report are preliminary and upon human resource adviser review may be revised to meet current compliance requirements. Marino Trotter DO 09/09/2024 12:45:41 PM This report has been signed electronically. Number of Addenda: 0 Note Initiated On: 09/09/2024 11:01 AM
--- NOTE | 2024-09-09 12:46 | OP.CCLET_ITS ---
09/09/2024 Rogers Bellamy MD [address] [place] [address] [place] [address] Re : Colonoscopy procedure for Joanne Stephenson Dear Dr. Bellamy This procedure was performed on Monday, September 09, 2024. My impressions and recommendations are as follows: Impressions : - The entire examined colon is normal. - Diverticulosis in the sigmoid colon. - No specimens collected. Recommendations : - Discharge patient to home. - Resume previous diet. - Continue present medications. - Repeat colonoscopy in 10 years for screening purposes. My findings are described in the full procedure note, which is enclosed. If I can be of further assistance, please feel free to contact me at . Sincerely, Marino Friend, 09/09/2024 12:45:41 PM This report has been signed electronically.
--- NOTE | 2024-09-09 12:48 | PCM.POST.ANE ---
Anesthesia: Postop Eval I Current Vital Signs Temperature: 97.3 F Pulse Rate: 76 Blood Pressure: 85/50 Respiratory Rate: 16 Pulse Ox: 97 Oxygen Delivery Method: Room Air Assessment Airway patent: Yes Spontaneous unlabored respirations: Yes Mental status: Awake and Calm nausea: No Vomiting: No Anesthesia Complication: No Fluid Hydration Crystalloid volume administer (ml): 40 Total IV fluid infused: 40 Progress Note Anesthesia document: Postop Eval 1 completed: Yes
--- NOTE | 2024-09-09 13:52 | PCM.POSTANE2 ---
Anesthesia Postop Eval I Sum Postop Eval Completion status Anesthesia document: Postop Eval 1 completed: Yes Anesthesia Postop Eval I Summary Anesthesia Postop Eval I Summary: Anesthesia Postop Eval I: Assessment Summary Airway patent Yes 09/09/24 12:49 [email or web address] Spontaneous unlabored Yes 09/09/24 12:49 [email or web address] respirations Mental status Awake,Calm 09/09/24 12:49 [email or web address] nausea No 09/09/24 12:49 [email or web address] Vomiting No 09/09/24 12:49 [email or web address] Anesthesia Postop Eval I: Fluid Summary Crystalloid volume administer 40 09/09/24 12:49 [email or web address] (ml) Colloids volume administered ( ml) Blood Product volume administered (ml) Total IV fluid infused 40 09/09/24 12:49 [email or web address] Anesthesia Postop Eval I: Summary Notes Anesthesia Complication No 09/09/24 12:49 [email or web address] Anesthesia Complication Comment: Post-operative progress note Anesthesia: Postop Eval II Evaluation Mental status: Awake Pain Level: 0 nausea: No Vomiting: No
== END 2024-09-09 13:45 | disposition home or self-care (01) ==
LOC: EN 10:45 → AC 10:46
PROVIDERS: Anesthesiology; PCP Internal Medicine; Referring Provider Internal Medicine; Visit Provider Internal Medicine Gastroenterology
PROC: 0DJD8ZZ Inspection of Lower Intestinal Tract, Via Natural or Artificial Opening Endoscopic (ICD-10-PCS; CPT 45378; principal; 2024-09-09 11:55)
DX: Z12.11 Encounter for screening for malignant neoplasm of colon (principal); E11.9 Type 2 diabetes mellitus without complications; K57.30 Diverticulosis of large intestine without perforation or abscess without bleeding; Z79.84 Long term (current) use of oral hypoglycemic drugs; G47.33 Obstructive sleep apnea (adult) (pediatric); Z99.81 Dependence on supplemental oxygen; I10 Essential (primary) hypertension; Z79.899 Other long term (current) drug therapy; F41.8 Other specified anxiety disorders
CPT/HCPCS: 45378; 81025; 82962; A4216; J2405

== ENCOUNTER → 2024-12-03 | Outpatient (CLI) | payer OTHER, SELFPAY ==
[2024-12-03 12:20] LABS: Hemoglobin A1c 7.5 % (<=5.6)
[2024-12-03 12:33] LABS: AST(SGOT) 19 U/L (<=31); Alanine Aminotransfer ALT/SGPT 14 U/L (<=34); Anion Gap 15 (5-15); BUN 22 mg/dL (4-19); Calcium,Total 9.4 mg/dL (7.6-11.0); Carbon Dioxide 23.9 mmol/L (21.0-32.0); Chloride 98 mmol/L (98-108); Creatinine, Serum 0.66 mg/dL (0.70-1.20); EST Glomerular Filtration Rate 109 (>60); Glucose 170 mg/dL (70-99); Potassium 4.8 mmol/L (3.3-5.1); Sodium Level 136 mmol/L (133-145)
== END | disposition home or self-care (01) ==
LOC: LAB 11:24
PROVIDERS: PCP Internal Medicine; Referring Provider Nurse Practitioner Adult Health; Visit Provider Nurse Practitioner Adult Health
DX: E11.9 Type 2 diabetes mellitus without complications (principal)
CPT/HCPCS: 36415; 80048; 83036; 84450; 84460

== ENCOUNTER 2025-01-16 08:00 | Outpatient (RCR) | payer OTHER, SELFPAY ==
--- NOTE | 2025-01-16 09:05 | BH.SGPN.GN ---
Behaviors/Verbalizations/Mental Status: [] Eye contact is good. Motor activity is appropriate. Appearance is casual. Speech is Appropriate. Mood is anxious and depressed. Affect is congruent. Thoughts are linear and logical. No evidence of psychosis. Reviewed daily check in sheet and no reports of suicidal ideations or intent Client Response/Progress/Benefit: [] Pt was an active participant in group discussion. Attentive. Daily symptom tracker notes 4/5 for depression and 2/5 for agitation. Today was pt?s first day in IOP. She reported significant grief as she has lost both her parents and 2 of her sibling in a short time span. She also reports significant stressors at work which have impacted her depression. Reports often staying in bed all day due to depression. Struggling to function and follow through with work responsibilities due to recent work events. Often reports feeling numb. Currently on FMLA from work. Benefited from group support, encouragement, and feedback. No progress noted as this was her first day in IOP. Will continue in IOP to prevent decompensation, increase healthy coping, and improve functioning to return to work. Narrative Note: []
--- NOTE | 2025-01-16 10:10 | BH.SGPN.GN ---
Behaviors/Verbalizations/Mental Status: []Pt alert and oriented, casually dressed and groomed. Eye contact good. Motor activity appropriate. Speech within normal limits. Affect congruent, mood anxious. Thoughts linear, logical, no signs of hallucinations or delusions. Client Response/Progress/Benefit: [] Pt receptive to session AEB contributing to group discussion, as well as listening attentively to others, and taking notes. Worked with group to brainstorm the positive and negative aspects of stress on physical and mental health as well as the impact of distress on performance, relationships, and mental health. Pt shared their current personal top stressors to be: high expectations, grief, fiances, and looking for a new job. Shared when feeling overwhelmed with stress pt tends to yell, cry, and isolate. Benefited from increased awareness of positive and negative stress as well as how stress impact individuals. Will continue in IOP to improve daily functioning, improve healthy coping, and prevent decompensation.
--- NOTE | 2025-01-16 11:15 | BH.SGPN.GN ---
Behaviors/Verbalizations/Mental Status: []Pt alert and oriented, casually dressed and groomed. Eye contact good. Motor activity appropriate. Speech within normal limits. Affect congruent, mood anxious. Thoughts linear, logical, no signs of hallucinations or delusions. Client Response/Progress/Benefit: [] Pt receptive to session AEB contributing to group discussion, as well as listening attentively to others, and taking notes. Worked with group during the activity and self-reflected that the activity made her feel anxious and frustrated, so pt had to ?pause and breath and think? to participate. Pt took notes and gained insight to the four A?s of stress management and reported benefitting from this. Benefited from increased awareness of positive and negative stress as well as how stress impact individuals. Will continue in IOP to prevent decompensation, improve daily functioning, and reduce ruminations. Narrative Note: []
--- NOTE | 2025-01-16 13:35 | BH.COMM_ITS ---
Communication Note Communication with Client Communication Note: Met with pt to complete initial paperwork and administer the CSSR-S screening and risk assessment. Pt is a mild risk as pt denies thoughts of and suicidal ideations within the past month. Pt denies any history of suicidal ideations ever and no history of self-harm. Pt denies any history of hospitalizations for mental health. No access to weapons. Pt is future oriented. Discussed case with Dr. Huang and pt will be admitted to [facility] tx with a diagnosis of MDD, recurrent, severe, without psychosis F 33.2
--- NOTE | 2025-01-16 13:35 | BH.COMM_ITS ---
Communication Note Communication with Client Communication Note: Met with pt to complete initial paperwork and administer the CSSR-S screening and risk assessment. Pt is a mild risk as pt denies thoughts of and suicidal ideations within the past month. Pt denies any history of suicidal ideations ever and no history of self-harm. Pt denies any history of hospitalizations for mental health. No access to weapons. Pt is future oriented. Discussed case with Dr. Huang and pt will be admitted to [facility] tx with a diagnosis of MDD, recurrent, severe, without psychosis F 33.2
--- NOTE | 2025-01-17 09:02 | BH.SGPN.GN ---
Behaviors/Verbalizations/Mental Status: [] Client alert and oriented, casual appearance. Eye contact good. Motor activity restless. Speech within normal limits. Affect congruent, mood anxious. Thoughts linear, logical, no signs of hallucinations or delusions. Reviewed client's symptom tracker, no risk for suicidal ideation, plan, or intent. Client Response/Progress/Benefit: [] Client responded well to session AEB listening to others and sharing thoughts/feelings. 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 Client reported additional positives as getting a job interview for next week and making it to IOP today despite wanting to stay in bed. Identified current stressor as waiting for a any commodity buyer for her condo. Appeared to benefit from support from peers. Will continue IOP tx to improve daily functioning, increase healthy coping skills, and prevent decompensation. Narrative Note: []
--- NOTE | 2025-01-17 10:10 | BH.SGPN.GN ---
Behaviors/Verbalizations/Mental Status: [] Pt alert and oriented, casually dressed and groomed. Eye contact good. Motor activity appropriate. Speech within normal limits. Affect congruent, mood anxious and depressed. Thoughts linear, logical, no signs of hallucinations or delusions. Client Response/Progress/Benefit: [] Pt participated during small group discussions. Attentive during psychoeducation about defense mechanisms. Showed engagement during small group discussions and helped group identify which defense mechanisms were maladaptive, adaptive, or ?somewhere in the bolden.? Pt worked with small group on identifying how each defense mechanism can impact mental health and gave examples. ?Seemed to benefit from gaining awareness about the different defense mechanisms. Pt to continue IOP tx to prevent decompensation, increase healthy coping, and improve functioning to return to work.
--- NOTE | 2025-01-17 11:10 | BH.SGPN.GN ---
Behaviors/Verbalizations/Mental Status: []Pt alert and oriented, casually dressed and groomed. Eye contact good. Motor activity appropriate. Speech within normal limits. Affect congruent, mood anxious. Thoughts linear, logical, no signs of hallucinations or delusions. Client Response/Progress/Benefit: [] Pt responded well to session, participating in activity and small group discussion. Group reviewed the rest of the defense mechanisms and discussed how these are adaptive, maladaptive, or somewhere in the bolden. Pt's defense mechanisms included anticipation, displacement, humor, and self-discipline. Pt reports work has been a major trigger for pt which has led to the use of displacement and humor in maladaptive ways, but pt is taking time off work. Pt listened to plaster tender teach different skills to help pt?s cope with or change their defense mechanisms. Pt appeared to benefit from gaining insight to the different defense mechanisms and learning coping skills. Pt will continue IOP tx to prevent decompensation, improve daily functioning, and gain healthy coping skills. Narrative Note: []
--- NOTE | 2025-01-17 11:10 | BH.SGPN.GN ---
Behaviors/Verbalizations/Mental Status: []Pt alert and oriented, casually dressed and groomed. Eye contact good. Motor activity appropriate. Speech within normal limits. Affect congruent, mood anxious. Thoughts linear, logical, no signs of hallucinations or delusions. Client Response/Progress/Benefit: [] Pt responded well to session, participating in activity and small group discussion. Group reviewed the rest of the defense mechanisms and discussed how these are adaptive, maladaptive, or somewhere in the bolden. Pt's defense mechanisms included anticipation, displacement, humor, and self-discipline. Pt reports work has been a major trigger for pt which has led to the use of displacement and humor in maladaptive ways, but pt is taking time off work. Pt listened to parts technician teach different skills to help pt?s cope with or change their defense mechanisms. Pt appeared to benefit from gaining insight to the different defense mechanisms and learning coping skills. Pt will continue IOP tx to prevent decompensation, improve daily functioning, and gain healthy coping skills. Narrative Note: []
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
[2025-01-18 09:52] VITALS: BP 148/86; PULSE 71
--- NOTE | 2025-01-18 10:10 | BH.SGPN.GN ---
Behaviors/Verbalizations/Mental Status: []Eye contact is good. Motor activity is appropriate. Appearance is casual. Speech is Appropriate. Mood is euthymic. Affect is congruent. Thoughts are linear and logical. No evidence of psychosis. Client Response/Progress/Benefit: [] Pt receptive to session AEB listening attentively to others and taking notes. Pt attentive and contributed throughout psychoeducation on the cognitive triangle and maintenance cycles. Pt engaged during group discussion reviewing the impact of daily activities and behaviors in either reinforcing unhealthy maintenance cycles and depression or assisting in reducing symptoms (?down? vs ?up? activities). Pt participated during interactive discussion in which pt identified their own common up activities (being around family, showering, music, talking to supports) and down activities (avoiding, not leaving the house, cancelling plans). Appeared to benefit from increased awareness of current behaviors and impact these have on mental health. Will continue IOP to prevent decompensation, gain healthy coping skills. Narrative Note: []
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
--- NOTE | 2025-01-18 12:58 | BH.DR.ITP ---
Initial Treatment Plan Patient Information Visit Information: ADMISSION DATE: EXPECTED LOS: 4-6 weeks Problems/Symptoms Problem #1:: Depression Symptom:: Sadness, worthlessness, guilt, anhedonia, biological disruption of sleep, low energy, decreased concentration Problem #2:: Anxiety Symptom:: Worry, rumination
--- NOTE | 2025-01-18 15:10 | BH.MDN ---
Multi-Disciplinary Note Note 30-min Individual: Time Started:: 11:35 Date: 01/18/25 Purpose of session/treatment goals addressed:: To gather information on pt's current stressors, symptoms, triggers, history, and tx goals. Another goal was to build rapport and provide emotional support. Eye Contact:: Good Motor Activity:: Appropriate Appearance:: Neat Speech:: Appropriate Mood:: Anxious Affect:: Full Thoughts:: Linear, Logical and No evidence of hallucinations/delusions noted Staff Interventions:: rapport building, strengths perspective and goal setting Client Response:: Pt responded well to session, open to meeting with therapist. Pt reports feeling pretty tired actually after her first three days of IOP. Pt stated she had to take a nap yesterday after group, but she was not upset, because my body needed it. Pt has been in therapy before and is currently seeing someone weekly for counseling. Pt reports therapy has been helpful just to be able to share my thoughts and get perspective. Pt stated she knows deep breathing skills that she uses to manage physical anxiety symptoms, but she has never done work on distortions, so pt is open to learning about these. 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 A lot of pt's mental health struggles recently come from burnout and stress at work. 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 Pt stated she has not felt like herself since the beginning of December. Pt is taking FMLA which will allow pt to get help at [facility] and be off for the rest of the school year. Pt has had numerous other stressors contributing to her worsening anxiety and depression including the loss of her parents and her needing a triple bypass. Pt was encouraged to begin an accomplishment log and pt and therapist plan to meet next week. Risks/Concerns:: Pt denies any suicidal ideations, plan, or intent. Pt denies any thoughts of . Progress Toward Goals/Plan:: Pt's first week of IOP tx and pt reports the program has been intense but good so far. Pt shared she feels that she is learning valuable skills already and is hoping to learn more. Pt did not have any medication changes today and pt was fine with this. Pt is taking FMLA to be off work and she plans to attend IOP three days a week. Pt's anxiety is reduced somewhat due to being off work, but she still feels like my brain is racing and I have 20 tabs open. Pt will continue IOP tx to prevent decompensation, improve daily functioning, and gain healthy coping skills. Time Stopped:: 12:05
--- NOTE | 2025-01-18 15:11 | BH.MTP ---
[facility] Treatment Plan Patient Information Program Physician:: Dr. Anna Huang Primary Therapist:: Jackie COHEN Psychiatric Diagnoses Psychiatric Diagnoses:: Major depressive disorder, recurrent, moderate; Generalized anxiety disorder Diagnosis Code(s):: F 33.1; F 41.1 Estimated LOS Estimated LOS (in weeks):: 6 Problem/Goal #1 Problem/Goal #1 Stated Goal:: Pt will decrease depressive symptoms, isolation, anhedonia, and negative thinking. Description of Barriers: Pt reports her work has been a significant trigger for her decompensation in symptoms. Pt has experienced a lot of loss due to of loved ones and she and her have chronic health issues. Functional Impact: Pt is a 49-year-old female with a history of MDD and ABBI. Pt was referred to [facility] tx by Dr. Alcaraz due to pt's worsening symptoms of anxiety and depression for the past several months. Pt reports decompensation beginning in September of this year and significantly worsening since December. Pt reports inability to function at her baseline (difficulty getting out of bed, not wanting to leave the house, etc) and not meeting deadlines at work. At admission, pt endorses a depressed mood with anhedonia, lack of concentration, crying spells, spacing out, lack of energy, and isolation. Pt also endorses racing thoughts, muscle tension, and constant worry. Goal Relevant Strengths/Supports: Pt is established with outpatient psychiatry and she sees a nurse practitioner regularly. Pt reports at her baseline she is very motivated and social. Objectives Objective #1: Stated Objective: Pt will learn and utilize 2-3 healthy coping strategies to better manage depressive symptoms as shown by a decrease of DMS-5 symptoms for depression. Interventions: Through group and individual sessions, therapist will help pt identify triggers and warning signs of depression and guilt including emotional, physical, and behavioral changes. Therapist will teach pt various coping skills to manage symptoms and give pt tangible resources to use to regulate emotions. Therapist will use cognitive restructuring techniques and help pt gain awareness of negative thoughts that reinforce guilt and depression. Therapist will provide psychoeducation on maintenance cycles and help pt learn ways to break unhealthy maintenance cycles. Therapist will help pt incorporate behavioral activation and assist pt in setting SMART goals. Discharge Criteria: Pt will have met this goal when can report learning and using at least 2 coping skills to manage depressive symptoms and reduce isolation. Additionally, pt will have met this goal when pt's DSM-5 scores for depression decrease. Target Date: 02/27/25 Review Date: 02/06/25 Status: open Objective #2: Stated Objective: Pt will increase social activity to at least one additional activity per week to reduce isolation and increase positive supports. Interventions: Therapist will help client explore social connection opportunities, and assist client identifying the benefits of increased social engagement. Therapist will assist client in setting weekly goals to get client out of the house and engaging in activities she enjoys. Therapist will provide education on maintenance cycles for depression and help client learn how to break unhealthy maintenance cycles. Therapist will discuss healthy versus unhealthy relationships and supports and how supports impact mental health progress. Therapist will provide area resources that promote emotional well-being and offer positive support. Discharge Criteria: Pt will have achieved this objective when can identify attending at least one social activity of interest weekly and report reduced isolation. Target Date: 02/27/25 Review Date: 02/06/25 Status: open Problem/Goal #2 Problem/Goal #2 Stated Goal:: Will reduce anxiety symptoms through increasing emotional regulation and distress tolerance skills Description of Barriers: Pt reports her work has been a significant trigger for her decompensation in symptoms. Pt has experienced a lot of loss due to of loved ones and she and her have chronic health issues. Functional Impact: Pt is a 49-year-old female with a history of MDD and ABBI. Pt was referred to [facility] tx by Dr. Alcaraz due to pt's worsening symptoms of anxiety and depression for the past several months. Pt reports decompensation beginning in September of this year and significantly worsening since December. Pt reports inability to function at her baseline (difficulty getting out of bed, not wanting to leave the house, etc) and not meeting deadlines at work. At admission, pt endorses a depressed mood with anhedonia, lack of concentration, crying spells, spacing out, lack of energy, and isolation. Pt also endorses racing thoughts, muscle tension, and constant worry. Goal Relevant Strengths/Supports: Pt is established with outpatient psychiatry and she sees a nurse practitioner regularly. Pt reports at her baseline she is very motivated and social. Objectives Objective #1: Stated Objective: Pt will increase ability to manage stressors and anxiety by gaining 2-3 distress tolerance skills. Interventions: Through group and individual therapy, pt will learn various coping skills to help manage stress and anxiety. Therapist will utilize DBT distress tolerance skills to increase awareness and give pt tools to more effectively manage anxiety. Therapist will provide psychoeducation on emotional regulation and help pt identify unhealthy coping skills pt wants to change. Discharge Criteria: Pt will have accomplished this goal when can report improved ability to manage stressors and identify at least 2 distress tolerance skills. Target Date: 02/27/25 Review Date: 02/06/25 Status: open Objective #2: Stated Objective: pt will identify 2-3 cognitive distortions that lead to rumination and learn 2-3 ways to manage these thoughts to better manage anxiety. Interventions: Therapist will provide education on the most common cognitive distortions and teach pt the connection between thoughts, emotions, and feelings. Therapist will assist pt in identifying, challenging, and replacing dysfunctional thoughts with positive, more realistic thoughts. Therapist will use CBT and DBT techniques to help pt gain awareness of thinking errors and learn how to more effectively handle negative thoughts. Discharge Criteria: Pt will have accomplished this goal when can identify at least 2 cognitive distortions and at least 2 coping skills to manage negative thoughts. Target Date: 02/27/25 Review Date: 02/06/25 Status: open
--- NOTE | 2025-01-18 15:11 | BH.PSA ---
Development & Family of Origin Family History Family History Father Liver disease Other CVA (cerebral vascular accident) Cancer Depression Diabetes Hypertension Sleep apnea
--- NOTE | 2025-01-23 09:05 | BH.SGPN.GN ---
Behaviors/Verbalizations/Mental Status: [] Eye contact is good. Motor activity is appropriate. Appearance is casual. Speech is Appropriate. Mood is euthymic. Affect is full. Thoughts are linear and logical. No evidence of psychosis. Reviewed daily check in sheet and no reports of suicidal ideations or intent. Client Response/Progress/Benefit: [] Pt was an active participant in group discussion. Attentive. Shared with the group positive news which she is excited about. Currently is future-oriented. Reports decreased anxiety and was engaged/active all weekend. Utilizing skills and opposition action.? ?I wanted to stay in bed however I didn?t?. Benefited from group support, encouragement, and feedback. Will continue in IOP to prevent decompensation, increase healthy coping, and improve functioning to return to work. Narrative Note: []
--- NOTE | 2025-01-23 10:10 | BH.SGPN.GN ---
Behaviors/Verbalizations/Mental Status: [] Eye contact is good. Motor activity is appropriate. Appearance is casual. Speech is Appropriate. Mood is content. Affect is congruent. Thoughts are linear and logical. No evidence of psychosis. Client Response/Progress/Benefit: [] Pt was an active participant in group discussions. Attentive during psychoeducation on the 4 communication styles (Passive, Passive-Aggressive, Aggressive, and Assertive) and the obstacles to effective communication. Contributed during interactive discussion on the benefits of communicating effectively. Worked well with peers to identify the benefits and disadvantages to the different communication styles. Pt believes that she is primarily passive-aggressive and assertive and gave insight that she can be passive aggressive when avoiding conflict. Benefited from increased understanding of communication styles and how these can impact effective communication. Will continue in IOP to promote healthy coping, challenge distortions, and prevent decompensation. Narrative Note: []
--- NOTE | 2025-01-23 11:15 | BH.SGPN.GN ---
Behaviors/Verbalizations/Mental Status: []Pt alert and oriented, casually dressed and groomed. Eye contact good. Motor activity appropriate. Speech within normal limits. Affect congruent, mood euthymic. Thoughts linear, logical, no signs of hallucinations or delusions. Client Response/Progress/Benefit: [] Pt responded well to session AEB Pt listening attentively to others and providing input during group discussion on the pay offs and costs of the different communication styles. Pt able to connect how current communication style impacts mental health. Connected with peers? comments about importance of using assertive communication. Pt seemed to benefit from increasing awareness of healthy strategies to improve communication and worked within small group to identify assertive communication approaches to example scenarios. Will continue IOP tx to challenge distortions, promote healthy coping, and prevent decompensation.
--- NOTE | 2025-01-25 09:00 | BH.SGPN.GN ---
Behaviors/Verbalizations/Mental Status: [] Pt alert and oriented, neatly dressed and groomed. Eye contact good. Motor activity appropriate. Speech within normal limits. Affect congruent, mood euthymic. Thoughts linear, logical, no signs of hallucinations or delusions. Reviewed pt?s symptom tracker, no risk for suicidal ideation, plan, or intent 01/25/25. Client Response/Progress/Benefit: []Pt was an active participant in group discussions. Attentive. Able to identify mental health wins including a reduction in muscle tension and headaches and improved sleep. Pt's stressor today is ?money, but that?s always a stressor.? Pt reported since she decided to quit her job and she found a new one her mood has been significantly better. Pt is feeling optimistic? this morning. Pt receptive to feedback from peers which pt reported was helpful. Progress noted. Benefited from group support, encouragement, and feedback. Will continue IOP tx to promote mood stability, increase distress tolerance, and increase self-care practices. ? Narrative Note: []
--- NOTE | 2025-01-25 10:10 | BH.SGPN.GN ---
Behaviors/Verbalizations/Mental Status: [] Eye contact is good. Motor activity is appropriate. Appearance is casual. Speech is Appropriate. Mood is euthymic. Affect is congruent. Thoughts are linear and logical. No evidence of psychosis. Client Response/Progress/Benefit: [] Pt engaged in session AEB listening attentively to others and providing input throughout. Pt engaged in activity, able to connect how it can be uncomfortable and difficult to practice acceptance when situations are out of one?s own control. Identified she is struggling with accepting the loss of both her parents in less than 4 months. Worked with peer group to define acceptance and identify the benefits that acceptance can bring. Benefits included; reduce stuckness, reduced stress, helps one to focus on situations we can change, and decreased negative self-talk. Seemed to benefit from increased awareness of the meaning as well as the importance of acceptance. Will continue in IOP to promote healthy coping, challenge distortions, and prevent decompensation.
--- NOTE | 2025-01-25 11:10 | BH.SGPN.GN ---
Behaviors/Verbalizations/Mental Status: []Pt alert and oriented, casually dressed and groomed. Eye contact fair. Motor activity appropriate. Speech within normal limits. Affect congruent, mood dysthymic, anxious. Thoughts linear, logical, no signs of hallucinations or delusions. Client Response/Progress/Benefit: [] Pt responded well to session AEB taking notes and contributing to discussion throughout. Pt engaged as group continued discussion on acceptance and the mental health benefits of practicing acceptance. Pt and peers identified what makes acceptance challenging and pt completed a self-reflection exercise on what is hard to accept in pt's life. Pt identified something that is currently hard to accept for her as the of her parents. Client stated by not accepting this it leads to isolating, sadness, and avoidance. Group identified strategies to increase acceptance. Pt noted wanting to work on asking for help and focusing on what is in her control as a strategy for improving acceptance in this area. Pt appeared to benefit from gaining insight and learning strategies to increase acceptance. Pt will continue IOP tx to improve view of self, increase mood stability, and prevent decompensation. Narrative Note: []
--- NOTE | 2025-01-27 09:00 | BH.SGPN.GN ---
Behaviors/Verbalizations/Mental Status: [] Eye contact is good. Motor activity is appropriate. Appearance is casual. Speech is Appropriate. Mood is euthymic. Affect is full. Thoughts are linear and logical. No evidence of psychosis. Reviewed daily check in sheet and no reports of suicidal ideations or intent. Client Response/Progress/Benefit: [] Pt was an active participant in group discussions. Attentive. Did well to identify 2 mental health wins including using opposite action to complete some yard work she had been putting off and attending an art event in support of a friend which she found enjoyable. Went on to describe finding it helpful when she makes time to intentionally connect with supports. Stressor noted as ongoing difficulties selling her mother's condo. Did well to identify what is and is not in her control regarding the situation, identifying healthy skills use to manage this stressor. Progress noted. Benefited from group support, encouragement, and feedback. Will continue in IOP to prevent decompensation, promote mood stability, and increase healthy coping consistency. Narrative Note: []
--- NOTE | 2025-01-27 10:00 | BH.SGPN.GN ---
Behaviors/Verbalizations/Mental Status: []Pt alert and oriented, neatly dressed and groomed. Eye contact good. Motor activity appropriate. Speech within normal limits. Affect congruent, mood euthymic. Thoughts linear, logical, no signs of hallucinations or delusions. Client Response/Progress/Benefit: [] Pt participated during the group discussion, providing input and remaining attentive during psychoeducation. Participated in experiential activity. Pt contributed during interactive discussion on the consequences of unhealthy expression of emotions. Worked with group to identify several consequences which included hurting relationships and isolating oneself. Contributing during interactive discussion on common potholes to effectively communicating. Pt was able to relate and make connections between the experiential activity and the overall topic, managing emotions through activity by using calming skills and self-talk. Pt shared she wants to take care of people, so it is hard for her to take a step back. Benefited from increased awareness of how stress and emotions can impact one's ability to communicate. Will continue IOP tx to promote mood stability, reduce negative thinking patterns, and improve emotional regulation skills. Narrative Note: []
--- NOTE | 2025-01-27 11:00 | BH.SGPN.GN ---
Behaviors/Verbalizations/Mental Status: [] Client alert and oriented, casually dressed and groomed. Eye contact good. Motor activity appropriate. Speech within normal limits. Affect congruent, mood euthymic and stressed. Thoughts linear, logical, no signs of hallucinations or delusions. Client Response/Progress/Benefit: []Client engaged in session AEB client listening attentively to peers and providing input. Attentive during psychoeducation on 4 zones of regulation. Pt able to identify feelings and behaviors for each zone. Pt identified coping skills one can use to support self in each zone. Pt stated belief that pt is in the yellow-green zone today. Pt reports plan to practice boundary setting and using assertive communication. Benefited from increased education on zones of regulation or stages of alertness for emotions and healthy coping skills to use for each zone. Pt will continue IOP tx to increase self-awareness, improve emotional regulation skills, and increase self-care. Narrative Note: []
--- NOTE | 2025-01-27 13:17 | BH.MDN_ITS ---
Multi-Disciplinary Note Note 30-min Individual: Time Started:: 12:00 Date: 01/27/25 Purpose of session/treatment goals addressed:: To review common cognitive distortions and discuss work-life balance. Eye Contact:: Good Motor Activity:: Appropriate Appearance:: Casual Speech:: Appropriate Mood:: Euthymic and Anxious Affect:: Congruent Thoughts:: Linear, Logical and No evidence of hallucinations/delusions noted Staff Interventions:: thought challenging, CBT techniques, mindfulness sk ills, strengths perspective and other (self-reflection homework) Client Response:: Pt responded well to session, open to meeting with therapist. Pt reports feeling still some anxiety, but much less now that she has found a new job. Pt stated she is nervous to quit and set boundaries with her previous employer, but pt knows she has to do this. Pt recognizes that she can get into patterns of taking on too much and personalizing others emotions which then leads to burnout. 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 Pt recognizes that she can be like an emotional sponge which is both a positive and a stressor. 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 Pt also connected with the cognitive distortion of mental filtering and shared that she can pay attention to negative things or things she is not doing well instead of giving herself credit. 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 Risks/Concerns:: Pt denies any suicidal ideations, plan, or intent. Pt denies any thoughts of . Progress Toward Goals/Plan:: Pt is making progress of her tx goals AEB pt's self-report of reduced symptoms of anxiety and depression. 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 Pt still has stress with leaving her previous job and pt notices patterns of burnout throughout her life that she wants to work on preventing. Pt will continue IOP tx to promote mood stability, reduce cognitive distortions, and improve self- care practices. Time Stopped:: 12:30
--- NOTE | 2025-01-31 09:00 | BH.SGPN.GN ---
Behaviors/Verbalizations/Mental Status: [] ?Eye contact is good. Motor activity is appropriate. Appearance is casual. Speech is Appropriate. Mood is euthymic. Affect is congruent. Thoughts are linear and logical. No evidence of psychosis. Reviewed daily check in sheet and no reports of suicidal ideations or intent. Client Response/Progress/Benefit: [] ?Pt was an active participant in group discussions. Attentive. Did well to identify 2 mental health wins including getting laundry and cleaning done, as well as going on a day date with her over the weekend. Discussed the importance of continuing to make time for one another. Stressor noted as her ongoing struggles with selling her mother's condo. Did well to identify what is and is not in her control regarding the situation, identifying healthy skills use to manage this stressor. Progress noted. Benefited from group support, encouragement, and feedback. Will continue in IOP to prevent decompensation, promote mood stability, and increase healthy coping consistency. Narrative Note: []
--- NOTE | 2025-01-31 10:10 | BH.SGPN.GN ---
Behaviors/Verbalizations/Mental Status: [] Eye contact is good. Motor activity is appropriate. Appearance is casual. Speech is Appropriate. Mood is anxious. Affect is congruent. Thoughts are linear and logical. No evidence of psychosis. Client Response/Progress/Benefit: [] Client engaged participant at times during group session as evidenced by contributions during group discussions, appearing to listen to others, and taking notes. Client engaged in discussion about barriers that keep people from having difficult confrontations. Group identified potential reasons individuals avoid difficult conversations which included; feeling unworthy, assume it will cause conflict, difficulty being vulnerable, poor timing, fear of abandonment. Group also identified benefits to having crucial conversations which included; can help set boundaries, allows one to get across thoughts/feelings, can feel empowered, increase connections, and lead to healthier relationships. Client seemed to benefit from increased awareness and education about importance of having difficult conversations and recognizing the impact of avoiding such conversations. Client to continue IOP to prevent decompensation, stabilize mood, and increase healthy coping. Narrative Note: []
--- NOTE | 2025-01-31 11:15 | BH.SGPN.GN ---
Behaviors/Verbalizations/Mental Status: []Pt alert and oriented, casually dressed and groomed. Eye contact good. Motor activity appropriate. Speech within normal limits. Affect congruent, mood euthymic. Thoughts linear, logical, no signs of hallucinations or delusions. Client Response/Progress/Benefit: [] Pt was an active participant, engaged in activities and discussion. Pt able to identify ways they negatively contribute to crucial conversations and pt was engaged during psychoeducation of the different ways to build interpersonal effectiveness skills. Pt and peers practiced mirroring and active listening in partners. Group reviewed [employer] and used the handout to help map out how they would like a crucial conversation in their life to go. Pt identified talking to her current employer that she is not returning next year as a crucial conversation pt needs to prepare for. Pt appeared to benefit from learning and practicing interpersonal effectiveness skills. Pt will continue IOP tx to promote mood stability, gain healthy coping skills, and improve distress tolerance. Narrative Note: []
--- NOTE | 2025-02-02 09:05 | BH.SGPN.GN ---
Behaviors/Verbalizations/Mental Status: [] Eye contact is good. Motor activity is appropriate. Appearance is casual. Speech is Appropriate. Mood is euthymic. Affect is full. Thoughts are linear and logical. No evidence of psychosis. Reviewed daily check in sheet and no reports of suicidal ideations or intent. Client Response/Progress/Benefit: [] Pt was an active participant in group discussions. Attentive. Limited distress noted on daily symptom tracker. Pt was an active participant in group discussions. Attentive. Shared with the group that she got a very meaningful tattoo to pay tribute to her recently parents. Overall, she is completing tasks, utilizing skills, and working on her mental health. Reports decreased depression and isolative behaviors. Progress noted. Benefited from group support, encouragement, and feedback. Will continue in IOP to prevent decompensation, stabilize mood, and improve functioning. Narrative Note: []
--- NOTE | 2025-02-02 10:15 | BH.SGPN.GN ---
Behaviors/Verbalizations/Mental Status: []Eye contact is fair. Motor activity is appropriate. Appearance is casual. Speech is Appropriate. Mood is anxious. Affect is congruent. Thoughts are linear and logical. No evidence of psychosis. Client Response/Progress/Benefit: [] Pt was an active participant in group discussions. Attentive during psychoeducation. Contributed during interactive discussions in which peers attempted to define crisis. Group identified crisis examples. Group also worked together to identify warning signs and unhealthy responses to crisis which included shutting down, isolation, avoidance, over-thinking, disordered eating, and self-harm. Pt identified top 3 warning signs as: difficulty concentrating, apathy, and feeling disconnected from loved ones. Benefited from increased understanding of crisis and awareness of personal responses to crisis. Pt will continue IOP tx to promote mood stability, reduce isolation, and improve self-care. Narrative Note: []
--- NOTE | 2025-02-02 11:15 | BH.SGPN.GN ---
Behaviors/Verbalizations/Mental Status: []Pt alert and oriented, appropriate grooming/appearance. Eye contact good. Motor activity appropriate. Speech within normal limits. Affect congruent, mood content. Thoughts linear, logical, no signs of hallucinations or delusions. Client Response/Progress/Benefit: []Pt was an active participant in group discussions. Attentive during psychoeducation. In small group pt along with peers developed an active plan for their crisis warning signs. Pt identified three crisis warning signs as well as an action plan for each. One crisis warning sign was I don't care attitude. Pt identified strategies to help with this such as: remind self of why you do what you do, positive self-talk, and reach out to supports for help/encouragement. Benefited from increased awareness of crisis warning signs and by developing crisis intervention strategies. Will continue in IOP to improve mood stability, increase use of healthy coping, and improve daily functioning. Narrative Note: []
--- NOTE | 2025-02-03 09:05 | BH.SGPN.GN ---
Behaviors/Verbalizations/Mental Status: [] Eye contact is good. Motor activity is appropriate. Appearance is casual. Speech is Appropriate. Mood is depression and irritability. Affect is congruent. Thoughts are linear and logical. No evidence of psychosis. Reviewed daily check in sheet and no reports of suicidal ideations or intent. Client Response/Progress/Benefit: [] Pt was an active participant in group discussions. Attentive. Daily symptom tracker notes limited distress today. According to pt she informed her current employer that she found another position and will not be returning. While she is excited she is unsure how this will impact her insurance benefits, FMLA, and other aspects. This uncertainty has led to anxiety, stress, and urges to escape through sleep, however has been using skills. She remains hopeful about the future and is utilizing skills. Continues to have intense symptoms related to grief of parents recent deaths. Benefited from group support, encouragement, and feedback. Will continue in IOP to prevent decompensation and increase healthy coping. Narrative Note: []
--- NOTE | 2025-02-03 10:10 | BH.SGPN.GN ---
Behaviors/Verbalizations/Mental Status: []Pt alert and oriented, casually dressed and groomed. Eye contact good. Motor activity appropriate. Speech within normal limits. Affect congruent, mood euthymic. Thoughts linear, logical, no signs of hallucinations or delusions. Client Response/Progress/Benefit: []Pt was an active participant in group discussion and activity. Attentive during psychoeducation. Along with peers, pt was able to identify barriers to taking action in their life. Identified several symptoms and stressors that pt feels are holding them back from progress such as putting others first, distorted thoughts, and poor boundaries. Pt able to identify how these things have negatively impacted progress. Benefited from increased self-awareness of obstacles. Pt will continue IOP to promote use of healthy coping skills, increase confidence, and prevent decompensation.
--- NOTE | 2025-02-03 11:10 | BH.SGPN.GN ---
Behaviors/Verbalizations/Mental Status: []Pt alert and oriented, neatly dressed and groomed. Eye contact good. Motor activity appropriate. Speech within normal limits. Affect congruent, mood anxious. Thoughts linear, logical, no signs of hallucinations or delusions. Client Response/Progress/Benefit: [] Pt responded well to session, taking notes and participating in worksheet discussion. Pt connected with the discussion on action steps, and this helped pt learn how to set goals differently. Pt set a SMART goal that she will get out of bed before 10 on the weekends and pick one activity to do that night with her . Pt shared setting alarms and making a list of possible events will support pt in accomplishing this goal. Appeared to benefit from identifying a small goal to benefit mental health. Pt will continue IOP tx to promote self-confidence, increase self-care, and reduce avoidance. Narrative Note: []
--- NOTE | 2025-02-03 14:55 | BH.MDN_ITS ---
Multi-Disciplinary Note Note 45-min Individual: Time Started:: 12:10 Date: 02/03/25 Purpose of session/treatment goals addressed:: To increase pt's emotional regulation skill set. Eye Contact:: Good Motor Activity:: Appropriate Appearance:: Casual Speech:: Appropriate Mood:: Anxious Affect:: Congruent Thoughts:: Linear, Logical and No evidence of hallucinations/delusions noted Staff Interventions:: thought challenging, CBT techniques, mindfulness skills (rehearsed 5-senses and PMR), strengths perspective, goal setting and other (homework to practice a mindfulness skill twice a day over the weekend.) Client Response:: Pt responded well to session, open to meeting with therapist. Pt reports she is less stressed and anxious most days and pt is excited about this. However, pt is currently worried about leaving her old job and starting her new one due to changes in insurance. Pt stated she was kicked out of her email and employee portal from her recent job. Pt plans to contact a financial investigator about insurance next week. Pt shared she completed her self- care reflection from last week and pt noticed some warning signs including, not taking a lunch when she works and not wanting to do things on the weekend. 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 Pt receptive to practicing these in session. Pt responded well to the 5-senses and PMR. Pt shared PMR is something she would benefit from because pt has a lot of tension and pain in her neck. Pt was also encouraged to use the resource tab in her IOP binder as it lists numerous free mental health apps that pt can utilize to help practice calming skills. Pt will practice at least 2 skills a day this weekend for homework. Risks/Concerns:: Pt denies any suicidal ideations, plan, or intent. Pt denies any thoughts of . Progress Toward Goals/Plan:: Pt is responding well to IOP tx AEB pt's self-report of gaining healthy coping skills and benefitting from the structure. Pt's stressors of employment are ongoing, but lessening as pt plans to switch jobs. Pt reports she is avoiding and isolating less, but she is still not at her baseline. Pt recognizes that she can continue to work on boundary setting, calming skills, and challenging her perspective. Pt will continue IOP tx to promote mood stability, increase emotional regulation skills, and improve daily functioning. Time Stopped:: 12:50
--- NOTE | 2025-02-08 10:15 | BH.SGPN.GN ---
Behaviors/Verbalizations/Mental Status: []Pt alert and oriented, neatly dressed and groomed. Eye contact good. Motor activity appropriate. Speech within normal limits. Affect congruent, mood euthymic. Thoughts linear, logical, no signs of hallucinations or delusions. Client Response/Progress/Benefit: [] Pt was attentive during psychoeducation and participated in group activity. Group discussed what contributes to a person?s perspective and how perspective can positively or negatively impact mental health treatment. Pt reflected on their perspective today and how it is impacting them. Pt shared their perspective is hopeful and this perspective is making her want to continue to work on herself. Pt appeared to benefit from increasing awareness of different perspectives and how they can affect mental health. Pt will continue IOP tx to promote mood stability, increase distress tolerance skills, and reduce physical symptoms of anxiety. ? Narrative Note: []
--- NOTE | 2025-02-08 10:28 | BH.MDN_ITS ---
Multi-Disciplinary Note Note 30-min Individual: Time Started:: 09:30 Date: 02/08/25 Purpose of session/treatment goals addressed:: To review progress, homework, and current stressors impacting pt's mental health. Eye Contact:: Good Motor Activity:: Appropriate Appearance:: Casual Speech:: Appropriate Mood:: Euthymic Affect:: Congruent Thoughts:: Linear, Logical and No evidence of hallucinations/delusions noted Staff Interventions:: thought challenging, CBT techniques, mindfulness sk ills, strengths perspective, reviewed DSM-5 and taught coping skills (taught porter mind strategy) Client Response:: Pt responded well to session, open to meeting with therapist. Pt reports she is doing well and she feels that practicing the calming skills was helpful. Pt reports her favorite grounding skill currently is categories and she has been doing this before bed to also help with sleep. Pt shared there is some stress around issues and confusion with insurance as pt changed jobs. Pt plans to talk with someone today about getting a new plan. Pt is about half way through IOP and she stated she is progressing, but I still want to work on everything. Pt stated she notices sometimes her thought patterns impact how pt handles stress, so pt was receptive to learning about porter mind. Pt was given two worksheets to practice porter mind for homework and we will review next week. Risks/Concerns:: No report of suicidal ideations or thoughts of . Progress Toward Goals/Plan:: Pt continues to make progress towards tx goals and she has been consistently been reporting an improved mood. Pt's major stressor (work) has been mostly resolved, although pt does still have stress with navigating getting on a difference insurance. Pt reports her symptoms of depression and anxiety are reducing, but pt reports I still feel like I need to learn more. Pt receptive to focusing on thought patterns for homework this week. Pt will continue IOP tx to promote mood stability, reduce negative thought patterns, and improve daily functioning. Time Stopped:: 10:00
--- NOTE | 2025-02-08 10:28 | BH.MTP_ITS ---
Treatment Plan Review Demographics Date of Admission:: 01/16/25 Date of Treatment Plan Review:: 02/08/25 Admitting Diagnoses:: Major depressive disorder, recurrent, moderate F33.1; Generalized anxiety disorder Current Diagnoses:: Major depressive disorder, recurrent, moderate F33.1; Generalized anxiety disorder Patient Status Patient's Response to Treatment:: Pt has responded well to session AEB consis tently attending IOP and engaging in both individual and group therapy sessions. Pt consistently completes homework provided from individual counseling. Pt contributes actively during group discussions, takes notes, appears to listen to others, and engages in group activities. Pt's overall DSM-5 scores have decreased by 79% since admission and she reports finding benefit from the coping skills so far. Status of Current Problems and Symptoms: Pt's symptoms have significantly decreased since admission, but pt reports she still does not feel that she is at her baseline. Pt's major stressor of work has been resolved, but pt still has financial and insurance stress. Pt also has the stress of selling her parents condo which is both a financial strain and a physical stress. Pt reports her ability to manage stressors is improving with the coping skills discussed and pt wants to continue learning more. Progress Problem #1: Problem Name:: Depression, isolation, crying spells. Status of Goals:: Objective 1- complete with ongoing work encouraged. Pt?s DSM-5 scores for depression have decreased by 60% since admission. Pt reports she has been using opposite action, goal setting, and thought challenging. Objective 2- complete with ongoing work encouraged. Pt reports she has been more social, but pt feels she is not yet back to her baseline. Team Recommendations:: Team recommends continued goals and objectives to reinforce skills and reduce symptoms. Team recommends pt continue working on combating distortions, using opposite action, and sticking with a consistent sleep schedule. Problem #2: Problem Name:: anxiety, racing thoughts, physical symptoms. Status of Goals:: Objective 1- complete with ongoing work encouraged. Pt?s DSM-5 scores for anxiety decreased by 86% since admission. Pt reports a lot of her anxiety has decreased due to leaving a toxic work environment, but pt also reports using calming skills more consistently. Pt has been learning about distress tolerance and how to avoid making things more stressful. Objective 2- complete. Pt can identify the common cognitive distortions and she is working on using porter mind and other thought challenging techniques. Team Recommendations:: Treatment team encourages pt to continue working on distress tolerance skills, verbalizing boundaries and setting boundaries with herself, grounding skills, and practicing self-talk.
--- NOTE | 2025-02-08 11:15 | BH.SGPN.GN ---
[]Behaviors/Verbalizations/Mental Status: []Pt alert and oriented, casually dressed and groomed. Eye contact good. Motor activity appropriate. Speech within normal limits. Affect congruent, mood euthymic. Thoughts linear, logical, no signs of hallucinations or delusions. Client Response/Progress/Benefit: []Pt was attentive and contributed to group discussion. Pt worked with group to identify strategies that can help with challenging negative perspective. Pt stated they can practice identifying and challenging negative thoughts to challenge negative perspective. Pt completed strengths exploration worksheet, identifying personal strengths. Pt able to acknowledge how these strengths are helping pt and can continue to help pt in mental health journey. Benefited from identifying personal strengths and strategies for enhancing use of identified strengths. Pt will continue IOP tx to promote healthy coping skills, challenge distortions, and prevent decompensation.
--- NOTE | 2025-02-10 09:05 | BH.SGPN.GN ---
Behaviors/Verbalizations/Mental Status: [] Eye contact is good. Motor activity is appropriate. Appearance is casual. Speech is Appropriate. Mood is euthymic. Affect is full. Thoughts are linear and logical. No evidence of psychosis. Reviewed daily check in sheet and no reports of suicidal ideations or intent. Client Response/Progress/Benefit: [] Pt was an active participant in group discussion. Attentive. Pt reports minimal distress today. She reports feeling positive due to an opportunity that was presented to her in the community. She elaborated on this opportunity and how it has impacted her purpose and benefited her mental health. Feeling engaged with ?purpose?. More optimistic with less urges to isolate. Following through with self-care and reframing negative thoughts. Progress noted. Benefited from group support, encouragement, and feedback. Will continue in IOP to prevent decompensation, increase healthy coping, and improve functioning. Narrative Note: []
--- NOTE | 2025-02-10 10:10 | BH.SGPN.GN ---
Behaviors/Verbalizations/Mental Status: [] Client alert and oriented, casually dressed and groomed. Eye contact good. Motor activity appropriate. Speech within normal limits. Affect congruent, mood euthymic. Thoughts linear, logical, no signs of hallucinations or delusions. Client Response/Progress/Benefit: [] Client responded well to session AEB providing input, taking notes throughout and listening attentively to others. Client was attentive throughout group activity identifying famous individuals and how they overcame failure to be successful. Client helped group identify how fear of failure can impact mental health and relationships Group identified it leads to self-sabotage, low self confidence, not trying, and isolation. Client participated in experiential activity, working with group members to problem solve. Appeared to benefit from increased knowledge of fear of failure. Will continue IOP tx to improve self-confidence and reduce avoidance. Narrative Note: []
--- NOTE | 2025-02-10 11:10 | BH.SGPN.GN ---
Behaviors/Verbalizations/Mental Status: [] Client alert and oriented, casually dressed and groomed. Eye contact good. Motor activity appropriate. Speech within normal limits. Affect congruent, mood euthymic. Thoughts linear, logical, no signs of hallucinations or delusions. Client Response/Progress/Benefit: [] Client responded well to session, engaged in the experiential activity and attentive throughout group processing. Client reported fear of failure has kept client from doing new things. Client completed fear of failure worksheet and was able to identify thoughts and behaviors that reinforce personal fear of failure including fear unknown, fiances, and fear of rejection. Client participated in small group discussion regarding strategies to overcome fear of failure. Identified wanting to ask for help, set a smart goal, and talk with others. Appeared to benefit from increased knowledge of strategies to combat fear of failure and gaining self-awareness. Client will continue IOP tx to promote gains and increase positive thought patterns. Narrative Note: []
== END 2025-02-11 23:59 ==
LOC: BHIOP 08:00
PROVIDERS: PCP Internal Medicine; Referring Provider Psychiatry & Neurology Psychiatry; Visit Provider Psychiatry & Neurology Psychiatry
DX: F33.1 Major depressive disorder, recurrent, moderate (principal); F41.1 Generalized anxiety disorder
CPT/HCPCS: S9480; 90832; 90834; 90853

== ENCOUNTER → 2025-01-23 | Outpatient (CLI) | payer OTHER, SELFPAY ==
[2025-01-23 13:18] LABS: Absolute Lymphocyte Count 3.17 X10^3/uL (0.83-4.51); Absolute Neutrophil Count 7.1 X10^3/uL (2.0-7.7); Basophil# 0.06 X10^3/uL; Basophil% 0.5 % (0-1); Eosinophil# 0.08 X10^3/uL; Eosinophils% 0.7 % (0-5); Hematocrit 45.8 % (37-47); Hemoglobin 15.5 g/dL (12.0-15.0); Lymphocyte # 3.17 X10^3/ul (0.83-4.51); Lymphocyte % 28.3 % (19-41); Mean Corp Hgb Conc 33.8 g/dL (32-36); Mean Corpuscular Hgb 31.6 pg (27.0-32.0); Mean Corpuscular Volume 93.3 fL (81-99); Mean Platelet Vol. 9.3 fl (6.2-12.0); Monocyte# 0.72 X10^3/uL; Monocyte% 6.4 % (0-10); NRBC Flagged by Analyzer 0 % (0-5); Neutrophil # 7.06 X10^3/uL (2.7-7.7); Neutrophil % 63.2 % (47-70); Platelet Count 385 K/mm3 (150-450); RBC Distribution Width CV 12.2 % (11.6-14.6); RBC Distribution Width SD 42.1 fl (35.1-43.9); Red Blood Count 4.91 M/mm3 (4.2-5.4); White Blood Count 11.2 K/mm3 (4.4-11.0)
[2025-01-23 14:40] LABS: Cholesterol 208 mg/dL (<=200); High Density Lipoprotein 41 mg/dL; Low Density Lipoprotein Calc. 81 mg/dL; Triglycerides 432 mg/dL; Very Low Density Lipoprotein 86 mg/dL (5-40); cholesterol:hdl ratio screen 5.06
[2025-01-23 14:50] LABS: ALB/GLOB Ratio 1.3 RATIO (0.9-2.4); AST(SGOT) 22 U/L (<=31); Alanine Aminotransfer ALT/SGPT 16 U/L (<=34); Albumin, Serum 4.3 g/dL (3.5-5.0); Alkaline Phosphatase 74 U/L (35-104); Anion Gap 15 (5-15); BUN 23 mg/dL (4-19); BUN/Creat Ratio 33.2 RATIO (10-20); Calcium,Total 10.2 mg/dL (7.6-11.0); Carbon Dioxide 24.3 mmol/L (21.0-32.0); Chloride 98 mmol/L (98-108); Creatinine, Serum 0.69 mg/dL (0.70-1.20); EST Glomerular Filtration Rate 108 (>60); Globulin 3.2 g/dL (2.2-4.2); Glucose 145 mg/dL (70-99); Luteinizing Hormone 9.8 mIU/mL; Potassium 4.4 mmol/L (3.3-5.1); Protein, Total 7.5 g/dL (5.9-8.4); Sodium Level 137 mmol/L (133-145); Total Bilirubin 0.23 mg/dL (0.00-1.30); Vitamin D,25 Hydroxy 28.6 ng/mL (30-100)
== END | disposition home or self-care (01) ==
PROVIDERS: PCP Internal Medicine; Referring Provider Internal Medicine; Visit Provider Internal Medicine
DX: E55.9 Vitamin D deficiency, unspecified (principal); N95.9 Unspecified menopausal and perimenopausal disorder; I10 Essential (primary) hypertension
CPT/HCPCS: 80053; 80061; 82306; 83001; 83002; 84443; 85025

== ENCOUNTER 2025-02-15 14:10 | Outpatient (RCR) | payer SELFPAY ==
[2025-02-12 00:42] VITALS: BP 148/86; PULSE 71
--- NOTE | 2025-02-15 09:05 | BH.SGPN.GN ---
Behaviors/Verbalizations/Mental Status: [] Pt alert and oriented, neatly dressed and groomed. Eye contact good. Motor activity appropriate. Speech within normal limits. Affect congruent, mood euthymic. Thoughts linear, logical, no signs of hallucinations or delusions. Reviewed pt?s symptom tracker, no risk for suicidal ideation, plan, or intent 02/15/25. Client Response/Progress/Benefit: []Pt was an active participant in group discussions. Attentive. Able to identify mental health wins including getting a massage recently and feeling stable enough to follow through with appointments, get errands done, and want to socialize. Pt's stressor today is ?the usual money stuff.? The group offered pt encouragement and emotional support which pt reported was helpful. Pt is feeling happy? this morning. Pt receptive to feedback from peers which pt reported was helpful. Progress noted. Benefited from group support, encouragement, and feedback. Will continue IOP tx to promote mood stability and reinforce healthy coping skills. ? Narrative Note: []
--- NOTE | 2025-02-15 10:10 | BH.SGPN.GN ---
Behaviors/Verbalizations/Mental Status: []Eye contact is good. Motor activity is appropriate. Appearance is casual. Speech is Appropriate. Mood is content. Affect is congruent. Thoughts are linear and logical. No evidence of psychosis. Client Response/Progress/Benefit: []Pt was an active participant in group discussion. Engaged and attentive during psychoeducation and interactive discussion on coping skills, why people use unhealthy coping skills, how to replace unhealthy coping skills, and internal vs external coping skills. Attentive as peers came up with list of unhealthy coping skills. Pt reported personally, they tend to either minimize or avoid. Group discussed the effects of maladaptive coping skills on mental health. Benefited from increased understanding of unhealthy coping skills and the need for developing healthy internal and external coping skills. Actively participated during experiential group activity and was able to related this activity to group topic. Will continue in [facility] to promote healthy communication, apply healthy coping skills, and promote mood stability. Narrative Note: [] Behaviors/Verbalizations/Mental Status: []Eye contact is good. Motor activity is appropriate. Appearance is casual. Speech is Appropriate. Mood is content. Affect is congruent. Thoughts are linear and logical. No evidence of psychosis. Client Response/Progress/Benefit: []Pt was an active participant in group discussion. Engaged and attentive during psychoeducation and interactive discussion on coping skills, why people use unhealthy coping skills, how to replace unhealthy coping skills, and internal vs external coping skills. Attentive as peers came up with list of unhealthy coping skills. Pt reported personally, they tend to either minimize or avoid. Group discussed the effects of maladaptive coping skills on mental health. Benefited from increased understanding of unhealthy coping skills and the need for developing healthy internal and external coping skills. Actively participated during experiential group activity and was able to related this activity to group topic. Will continue in IOP to promote healthy communication, apply healthy coping skills, and promote mood stability. Narrative Note: []
--- NOTE | 2025-02-15 10:10 | BH.SGPN.GN ---
Behaviors/Verbalizations/Mental Status: []Eye contact is good. Motor activity is appropriate. Appearance is casual. Speech is Appropriate. Mood is content. Affect is congruent. Thoughts are linear and logical. No evidence of psychosis. Client Response/Progress/Benefit: []Pt was an active participant in group discussion. Engaged and attentive during psychoeducation and interactive discussion on coping skills, why people use unhealthy coping skills, how to replace unhealthy coping skills, and internal vs external coping skills. Attentive as peers came up with list of unhealthy coping skills. Pt reported personally, they tend to either minimize or avoid. Group discussed the effects of maladaptive coping skills on mental health. Benefited from increased understanding of unhealthy coping skills and the need for developing healthy internal and external coping skills. Actively participated during experiential group activity and was able to related this activity to group topic. Will continue in [facility] to promote healthy communication, apply healthy coping skills, and promote mood stability. Narrative Note: [] Behaviors/Verbalizations/Mental Status: []Eye contact is good. Motor activity is appropriate. Appearance is casual. Speech is Appropriate. Mood is content. Affect is congruent. Thoughts are linear and logical. No evidence of psychosis. Client Response/Progress/Benefit: []Pt was an active participant in group discussion. Engaged and attentive during psychoeducation and interactive discussion on coping skills, why people use unhealthy coping skills, how to replace unhealthy coping skills, and internal vs external coping skills. Attentive as peers came up with list of unhealthy coping skills. Pt reported personally, they tend to either minimize or avoid. Group discussed the effects of maladaptive coping skills on mental health. Benefited from increased understanding of unhealthy coping skills and the need for developing healthy internal and external coping skills. Actively participated during experiential group activity and was able to related this activity to group topic. Will continue in IOP to promote healthy communication, apply healthy coping skills, and promote mood stability. Narrative Note: []
--- NOTE | 2025-02-15 11:15 | BH.SGPN.GN ---
Behaviors/Verbalizations/Mental Status: [] Pt alert and oriented, casual in appearance. Eye contact good. Motor activity appropriate. Speech within normal limits. Affect congruent, mood euthymic. Thoughts linear, logical, no signs of hallucinations or delusions. Client Response/Progress/Benefit: [] Pt did not engage in group discussions however was attentive AEB taking notes, and listening attentively to others. Group discussed the different categories of coping skills which included distraction, emotional release, grounding, self-love, and thought challenging. Pt participated in creating a coping skills ?menu? from the different categories of coping skills. Pt's coping skill menu included: getting outside, grounding, look for evidence against, and engaging in self-care. Appeared to benefit from increasing repertoire of healthy coping skills. Will continue IOP to promote healthy coping, improve confidence, and prevent decompensation.
--- NOTE | 2025-02-15 15:07 | BH.MDN_ITS ---
Multi-Disciplinary Note Note 30-min Individual: Time Started:: 12:00 Date: 02/15/25 Purpose of session/treatment goals addressed:: To address current stressors and discuss strategies to help cope with these stressors. Another goal was to discuss discharge and aftercare. Eye Contact:: Good Motor Activity:: Appropriate Appearance:: Neat Speech:: Appropriate Mood:: Euthymic and Anxious Affect:: Congruent Thoughts:: Linear, Logical and No evidence of hallucinations/delusions noted Staff Interventions:: mindfulness skills, discharge planning, strengths perspective and reviewed DSM-5 Client Response:: Pt responded well to session, open to meeting with therapist. Pt reports feeling so much better compared to when she started IOP tx. Pt reports she is able to get out of bed without much difficulty now and she is looking forward to things again. Pt's primary stress was her previous job which was significantly draining to pt's mental health. Pt has since left that position and plans to work a [employer] this fall. Therapist and pt have been working on self-care practices pt can implement to prevent burnout in her new role as well as ways to advocate for herself. Pt and therapist also discussed potential triggers that could occur at her new job (loud noises, high expectations, etc) and what pt can do to manage these. Pt shared her biggest goal is to continue to do check ins with herself so that she can catch any early warning signs of burnout and prevent it from a mental health crisis. Pt also plans to participate in IOP aftercare which will help pt reinforce healthy coping skills she has been using. Risks/Concerns:: Pt denies any suicidal ideations, plan, or intent. Pt denies any thoughts of . Progress Toward Goals/Plan:: Pt continues to do well in IOP and she will discharge on 02/17/25. Pt was planning to stay in IOP longer, but pt is making significant progress and she had recent changes to her insurance which makes it financially challenging to continue IOP. Pt and therapist both feel pt is functioning much better and her symptoms have significantly decreased since admission. Pt will continue through 02/17/25 to reinforce healthy coping skills and further improve mood stability. Time Stopped:: 12:30
--- NOTE | 2025-02-16 09:05 | BH.SGPN.GN ---
Behaviors/Verbalizations/Mental Status: [] Eye contact is good. Motor activity is appropriate. Appearance is casual. Speech is Appropriate. Mood is euthymic. Affect is full. Thoughts are linear and logical. No evidence of psychosis. Reviewed daily check in sheet and no reports of suicidal ideations or intent Client Response/Progress/Benefit: [] Pt participated at times during the group discussions. Attentive. Daily symptom tracker notes minimal distress. Able to identify mental health wins and healthy habits. Visited the graves of her mother, father, and brother yesterday. Overall reports feeling pretty cool right now. Behavioral activation and opposite action have forced me out of the house which has been beneficial to her mental health. She also attributes leaving her toxic work environment as increase hope and helped her regain motivation. Progress noted. Benefited from group support, encouragement, and feedback. Will continue in IOP to prevent decompensation and maintain gains. Narrative Note: []
--- NOTE | 2025-02-16 11:15 | BH.SGPN.GN ---
Behaviors/Verbalizations/Mental Status: [] Client alert and oriented, casually dressed and groomed. Eye contact good. Motor activity appropriate. Speech within normal limits. Affect congruent, mood euthymic. Thoughts linear, logical, no signs of hallucinations or delusions Client Response/Progress/Benefit: [] Client was an active participant, AEB taking notes and providing input in group discussions and activities. Attentive during psychoeducation. Client engaged during interactive discussion in which the group defined self-care and discussed its benefits. Group discussed barriers to engaging in self-care, pt expressed connecting with barrier of not feeling she deserves it. Client participated in small groups where they worked to identify common self-care ?myths?. Benefited from increased awareness of self-care, its benefits, and the consequences of not utilizing self-care strategies. Will continue IOP tx to prevent decompensation, promote healthy coping skill application, and increase functioning. Narrative Note: []
--- NOTE | 2025-02-16 11:15 | BH.SGPN.GN ---
Behaviors/Verbalizations/Mental Status: []Client alert and oriented, neatly dressed and groomed. Eye contact good. Motor activity appropriate. Speech within normal limits. Affect congruent, mood euthymic. Thoughts linear, logical, no signs of hallucinations or delusions. Client Response/Progress/Benefit: [] Pt engaged participant AEB completing self-assessment worksheet and providing input throughout discussion. Pt completed worksheet identifying current self-care practices and what self-care activities Pt wants to start using. Pt selected professional self-care to begin practicing more consistently. 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 Appeared to benefit from completing the self-care evaluation and gaining insights into current self-care practices, as well as identifying areas in which Pt would like to improve upon. Pt will continue IOP tx to promote mood stability, increase self-confidence, and improve self-care. Narrative Note: []
--- NOTE | 2025-02-16 14:26 | BH.AFTERPLAN ---
Aftercare Plan Demographics Treatment End Date:: 02/17/25 Psychiatrist:: Maciel Alcaraz Psychiatrist Office #:: [phone] PHP/IOP Therapist:: Jackie Preciado Therapist Phone #:: [phone] Medications Home Medications rizatriptan 10 mg disintegrating tablet 10 mg PO PRN PRN Migraine Symptoms 07/01/16 biotin 1 mg capsule 1 mg PO DAILY 10/18/18 cholecalciferol (vitamin D3) 25 mcg (1,000 unit) capsule 2,000 unit PO DAILY 10/18/18 magnesium 250 mg tablet 250 mg PO DAILY 10/18/18 ascorbic acid (vitamin C) 500 mg capsule 500 mg PO DAILY 09/03/21 blood sugar diagnostic (Accu-Chek Guide test strips) #10 ea 09/03/21 cranberry fruit concentrate 250 mg chewable tablet (Azo Cranberry) 250 mg PO DAILY 09/03/21 lancets (Accu-Chek Fastclix Lancet Drum) #100 ea 09/03/21 vitamin E 268 mg (400 unit) capsule 800 unit PO DAILY #60 caps 11/04/21 CoQ10 100 mg PO 1XD 03/05/22 acetaminophen 650 mg tablet,extended release (Tylenol Arthritis Pain) 650 mg PO Q12H PRN pain 07/10/22 celecoxib 200 mg capsule (Celebrex) 200 mg PO BID 07/10/22 ropinirole 0.25 mg tablet 0.25 mg PO QHS #30 tabs 09/29/22 multivitamin 1 tab PO DAILY 03/02/24 ursodiol 250 mg tablet 250 mg PO DAILY #30 tabs 04/14/24 losartan 100 mg tablet 100 mg PO DAILY #90 tabs 07/20/24 metoprolol tartrate 50 mg tablet 50 mg PO BID 3 months #180 TABLETS 08/08/24 cyanocobalamin (vitamin B-12) 50 mcg tablet (Vitamin B-12) 50 mcg PO DAILY 09/08/24 blood-glucose sensor (FreeStyle Gavin 3 Plus Sensor device) #1 ea 09/12/24 hydrochlorothiazide 25 mg tablet 25 mg PO QAM #90 TABLETS 11/14/24 doxepin 10 mg capsule See Rx Instructions .Route .COMPLEX #90 caps 12/05/24 duloxetine 30 mg capsule,delayed release See Rx Instructions .Route .COMPLEX #90 caps 12/05/24 duloxetine 60 mg capsule,delayed release See Rx Instructions .Route .COMPLEX #90 caps 12/05/24 hydroxyzine HCl 25 mg tablet 25 mg PO BID PRN anxiety #60 tabs 12/05/24 potassium chloride 20 mEq tablet,extended release 20 meq PO DAILY #60 TABLETS 12/13/24 metformin 500 mg tablet,extended release 24hr (osmotic) 1,000 mg PO BID 01/18/25 omega-3 fatty acids 1,000 mg capsule 1,000 mg PO DAILY 01/18/25 vitamin A 2,400 mcg capsule 2,400 mcg PO DAILY 01/18/25 fenofibrate 54 mg tablet 54 mg PO QDAY #60 tabs 01/24/25 glimepiride 2 mg tablet 3 mg PO QDAY 02/13/25 norethindrone (contraceptive) 0.35 mg tablet See Rx Instructions .Route .COMPLEX #84 tabs 02/13/25 Plan Details Progress/Aftercare Plan Details:: Pt has responded well to treatment as evidenced by Pt consistently attending IOP sessions and her reduction of DSM-5 scores since admission. Pt was always attentive and receptive to learning during group and individual sessions. Pt actively applied coping skills outside of IOP and reports overall her mood is improved and she is functioning better than she was several months ago. Pt?s overall symptom reduction is 89% since admission with anger decreasing by 100%, depression decreasing by 80%, and anxiety decreasing by 86%. Pt has increased self-compassion and become more assertive. Most importantly, Pt has become more vulnerable, flexible, and confident in her abilities. Pt will follow up with Dr. Alcaraz for medication management and Samia Barreto for outpatient talk therapy. Strategies for Success:: 1. Opposite action! Continue to break that cycle of anxiety, guilt, and depression by not letting emotions be the only drivers of your bus. 2. Remember that thoughts are thoughts NOT facts! You have power in if you give thoughts the time of day or not. 3. self-care! You deserve to take time for you and you also deserve to face the not so fun self-care like delegating tasks and advocating for yourself 4. Self-compassion! You are human and you will make a mistake?BUT that doesn?t mean you are a failure or not good enough. Remember there are no bad parts! 5. Continue to practice acceptance 6. Practice positive self-talk and keep track of your wins. 7. Remember progress isn?t linear! You may have a setback or bump in the road, but that doesn?t mean you?ve lost all progress. 8. self-reflection and self-awareness. 9. Be understanding with yourself and try to see the whole picture, not just the snapshot. 10. Live in the rodríguez!! Appointments Appointments/Referrals to Other Services:: 1. Dr. Alcaraz next appointment 04/17/25. 2. Follow up with Samia Barreto 3. IOP aftercare group starting on 02/23/25 from 2:00-3:30pm
--- NOTE | 2025-02-16 14:28 | BH.DS ---
Discharge Summary Demographics Date of Admission:: 01/18/25 Discharge Date: 02/17/25 Presenting Problems at Admission:: Pt is a 49-year-old female with a history of MDD and ABBI. Pt was referred to [facility] tx by Dr. Alcaraz due to pt's worsening symptoms of anxiety and depression for the past several months. Pt reports decompensation beginning in September of this year and significantly worsening since December. Pt reports inability to function at her baseline (difficulty getting out of bed, not wanting to leave the house, etc) and not meeting deadlines at work. At admission, pt endorses a depressed mood with anhedonia, lack of concentration, crying spells, spacing out, lack of energy, and isolation. Pt also endorses racing thoughts, muscle tension, and constant worry. Discharge Diagnoses:: Major depressive disorder, recurrent, moderate; Generalized anxiety disorder Reason for Discharge:: Pt has accomplished her tx goals AEB her reduction of DMS-5 symptoms, her self-report of improved functioning and mood, and improved outlook. Pt no longer meets criteria for [facility] level of care and will discharge to outpatient counseling. Treatment Progress During Treatment & Response: Pt has responded well to treatment as evidenced by Pt consistently attending IOP sessions and her reduction of DSM-5 scores since admission. Pt was always attentive and receptive to learning during group and individual sessions. Pt actively applied coping skills outside of IOP and reports overall her mood is improved and she is functioning better than she was several months ago. Pt?s overall symptom reduction is 89% since admission with anger decreasing by 100%, depression decreasing by 80%, and anxiety decreasing by 86%. Pt has increased self-compassion and become more assertive. Most importantly, Pt has become more vulnerable, flexible, and confident in her abilities. Pt will follow up with Dr. Alcaraz for medication management and Samia Barreto for outpatient talk therapy. Issues Still to be Addressed:: Pt can benefit from continuing to work on work-life balance to promote mood stability. Pt can also benefit from setting boundaries with her employer and taking time for self-care. Discharge Recommendations/Instructions:: Pt will continue seeing Dr. Alcaraz for psychiatric medication management. Pt recently saw Dr. Alcaraz on 02/13/25. Pt will follow up again in two months with Dr. Alcaraz. Pt also sees Samia Barreto who is a psychologist private practice for weekly sessions which pt reports are therapeutic. Pt will begin IOP aftercare group on 02/23/25 for 8 weeks of weekly group. Discharge Handout
--- NOTE | 2025-02-16 14:28 | BH.DS ---
Discharge Summary Demographics Date of Admission:: 01/18/25 Discharge Date: 02/17/25 Presenting Problems at Admission:: Pt is a 49-year-old female with a history of MDD and ABBI. Pt was referred to [facility] tx by Dr. Alcaraz due to pt's worsening symptoms of anxiety and depression for the past several months. Pt reports decompensation beginning in September of this year and significantly worsening since December. Pt reports inability to function at her baseline (difficulty getting out of bed, not wanting to leave the house, etc) and not meeting deadlines at work. At admission, pt endorses a depressed mood with anhedonia, lack of concentration, crying spells, spacing out, lack of energy, and isolation. Pt also endorses racing thoughts, muscle tension, and constant worry. Discharge Diagnoses:: Major depressive disorder, recurrent, moderate; Generalized anxiety disorder Reason for Discharge:: Pt has accomplished her tx goals AEB her reduction of DMS-5 symptoms, her self-report of improved functioning and mood, and improved outlook. Pt no longer meets criteria for [facility] level of care and will discharge to outpatient counseling. Treatment Progress During Treatment & Response: Pt has responded well to treatment as evidenced by Pt consistently attending IOP sessions and her reduction of DSM-5 scores since admission. Pt was always attentive and receptive to learning during group and individual sessions. Pt actively applied coping skills outside of IOP and reports overall her mood is improved and she is functioning better than she was several months ago. Pt?s overall symptom reduction is 89% since admission with anger decreasing by 100%, depression decreasing by 80%, and anxiety decreasing by 86%. Pt has increased self-compassion and become more assertive. Most importantly, Pt has become more vulnerable, flexible, and confident in her abilities. Pt will follow up with Dr. Alcaraz for medication management and Samia Barreto for outpatient talk therapy. Issues Still to be Addressed:: Pt can benefit from continuing to work on work-life balance to promote mood stability. Pt can also benefit from setting boundaries with her employer and taking time for self-care. Discharge Recommendations/Instructions:: Pt will continue seeing Dr. Alcaraz for psychiatric medication management. Pt recently saw Dr. Alcaraz on 02/13/25. Pt will follow up again in two months with Dr. Alcaraz. Pt also sees Samia Barreto who is a psychiatric secretary for weekly sessions which pt reports are therapeutic. Pt will begin IOP aftercare group on 02/23/25 for 8 weeks of weekly group. Discharge Handout
--- NOTE | 2025-02-17 09:00 | BH.SGPN.GN ---
Behaviors/Verbalizations/Mental Status: [] Pt alert and oriented, neatly dressed and groomed. Eye contact good. Motor activity appropriate. Speech within normal limits. Affect congruent, mood euthymic. Thoughts linear, logical, no signs of hallucinations or delusions. Reviewed pt?s symptom tracker, no risk for suicidal ideation, plan, or intent 02/17/25. Client Response/Progress/Benefit: []Pt was an active participant in group discussions. Attentive. Able to identify mental health wins including allowing herself to rest when she felt a migraine and continuing to be productive. Pt's stressor today is ?I?m a little worried that I?ll forget the things I need to do.? Therapist normalized this and encouraged pt to challenge any distorted thoughts. Pt is feeling optimistic? this morning. Pt receptive to feedback from peers which pt reported was helpful. Progress noted. Benefited from group support, encouragement, and feedback. Will discharge from IOP tx today as pt has accomplished her tx goals and no longer meets criteria for IOP level of care. ? Narrative Note: []
--- NOTE | 2025-02-17 10:00 | BH.SGPN.GN ---
Behaviors/Verbalizations/Mental Status: [] Eye contact is good. Motor activity is appropriate. Appearance is casual. Speech is Appropriate. Mood is content. Affect is congruent. Thoughts are linear and logical. No evidence of psychosis. Client Response/Progress/Benefit: [] Pt was engaged and participating throughout, providing input and taking notes. Attentive during psychoeducation on anxiety and cognitive triangle. Participated in an interactive discussion on defining anxiety and identifying cognitive and physiological symptoms of anxiety. The group discussed helpful vs harmful anxiety. Pt identified their physical/physiological signs of anxiety which includes:migraines, restlessness, muscle tensions, and nausea Benefited from increased awareness and insight on anxiety and its impact. Will d/c from [facility] on this date and continue in outpatient counseling to maintain gains. Narrative Note: []
--- NOTE | 2025-02-17 10:00 | BH.SGPN.GN ---
Behaviors/Verbalizations/Mental Status: [] Eye contact is good. Motor activity is appropriate. Appearance is casual. Speech is Appropriate. Mood is content. Affect is congruent. Thoughts are linear and logical. No evidence of psychosis. Client Response/Progress/Benefit: [] Pt was engaged and participating throughout, providing input and taking notes. Attentive during psychoeducation on anxiety and cognitive triangle. Participated in an interactive discussion on defining anxiety and identifying cognitive and physiological symptoms of anxiety. The group discussed helpful vs harmful anxiety. Pt identified their physical/physiological signs of anxiety which includes:migraines, restlessness, muscle tensions, and nausea Benefited from increased awareness and insight on anxiety and its impact. Will d/c from [facility] on this date and continue in outpatient counseling to maintain gains. Narrative Note: []
--- NOTE | 2025-02-17 11:00 | BH.SGPN.GN ---
Behaviors/Verbalizations/Mental Status: Eye contact is good. Motor activity is appropriate. Appearance is casual. Speech is Appropriate. Mood is euthymic. Affect is congruent. Thoughts are linear and logical. No evidence of psychosis. Client Response/Progress/Benefit: [] Pt was an active participant AEB pt providing input and listening attentively to peers. Attentive during psychoeducation on mindfulness coping skills, body-based coping skills, and mind-based coping skills and their impact on reducing anxiety and improving overall mental health wellness. Group was able to identify self-soothing and mind-based coping skills which included: 5-senses, meditation, deep breathing, TIPP, thought challenging, prayer, affirmation, brain games, weighted blanket, and progressive muscle relaxation. Pt also participated with peers in practicing progressive muscle relaxation during session. Appeared to benefit from increasing repertoire of anxiety reduction skills. Pt will continue IOP to increase distress tolerance skills, improve daily functioning, and reduce negative self-talk.
== END 2025-02-17 11:58 | disposition home or self-care (01) ==
LOC: BHIOP 14:10
PROVIDERS: PCP Internal Medicine; Referring Provider Psychiatry & Neurology Psychiatry; Visit Provider Psychiatry & Neurology Psychiatry
DX: F33.1 Major depressive disorder, recurrent, moderate (principal); F41.1 Generalized anxiety disorder
CPT/HCPCS: S9480; 90832; 90853

== ENCOUNTER 2025-02-23 08:00 | Outpatient (RCR) | payer SELFPAY | END 2025-03-13 23:59 | LOC: BHOG 08:00 | PROVIDERS: PCP Internal Medicine; Referring Provider Psychiatry & Neurology Psychiatry; Visit Provider Psychiatry & Neurology Psychiatry | DX: F33.1 Major depressive disorder, recurrent, moderate (principal); F41.1 Generalized anxiety disorder | CPT/HCPCS: 90853 ==

== ENCOUNTER → 2025-02-27 | Outpatient (CLI) | payer BC, SELFPAY ==
[2025-02-27 12:59] LABS: Hemoglobin A1c 7.5 % (<=5.6)
[2025-02-27 13:18] LABS: AST(SGOT) 22 U/L (<=31); Alanine Aminotransfer ALT/SGPT 24 U/L (<=34); Anion Gap 16 (5-15); BUN 12 mg/dL (4-19); BUN/Creat Ratio 18.1 RATIO (10-20); Calcium,Total 9.7 mg/dL (7.6-11.0); Carbon Dioxide 24.7 mmol/L (21.0-32.0); Chloride 94 mmol/L (98-108); Cholesterol 257 mg/dL (<=200); Creatinine, Serum 0.65 mg/dL (0.70-1.20); EST Glomerular Filtration Rate 109 (>60); Glucose 236 mg/dL (70-99); High Density Lipoprotein 39 mg/dL; Low Density Lipoprotein Calc. 109 mg/dL; Potassium 4.1 mmol/L (3.3-5.1); Sodium Level 134 mmol/L (133-145); Triglycerides 545 mg/dL; Very Low Density Lipoprotein 109 mg/dL (5-40); cholesterol:hdl ratio screen 6.57
== END | disposition home or self-care (01) ==
LOC: LAB 11:22
PROVIDERS: PCP Internal Medicine; Referring Provider Physician Assistant; Visit Provider Physician Assistant
DX: E11.65 Type 2 diabetes mellitus with hyperglycemia (principal); E78.2 Mixed hyperlipidemia; E04.8 Other specified nontoxic goiter
CPT/HCPCS: 36415; 80048; 80061; 83036; 84443; 84450; 84460

== ENCOUNTER 2025-03-14 07:14 | Outpatient (RCR) | payer SELFPAY ==
--- NOTE | 2025-03-16 14:00 | BH.SGPN.GN ---
Behaviors/Verbalizations/Mental Status: []Pt alert and oriented, neatly dressed and groomed. Eye contact good. Motor activity appropriate. Speech within normal limits. Affect congruent, mood euthymic and anxious. Thoughts linear, logical, no signs of hallucinations or delusions. Client Response/Progress/Benefit: [] Pt responded well to session, completed their self-reflection worksheet. Pt noted they have not met with their therapist since last session and used coping skills like exercising, asking for help, setting goals, opposite action, and deep breathing. Pt also noted they completed last weeks homework and found it helpful. Pt engaged well during the discussion of the components of self-compassion. Pt connected with the benefits of self-compassion and participated in the activity of reframing a recent setback using self-compassion. Pt used self-compassion to combat negative self-talk and assisted peers in identifying examples of the three components of self-compassion.?Pt appeared to benefit from practicing self-compassion and connecting with peers. Will continue aftercare to promote mood stability and reinforce healthy coping skills.? Narrative Note: []
--- NOTE | 2025-03-30 14:00 | BH.SGPN.GN ---
Behaviors/Verbalizations/Mental Status: []Pt alert and oriented, neatly dressed and groomed. Eye contact good. Motor activity appropriate. Speech within normal limits. Affect congruent, mood euthymic. Thoughts linear, logical, no signs of hallucinations or delusions. Client Response/Progress/Benefit: [] Pt took notes and contributed to group discussions. Pt reports she has been taking medications consistently. Pt identified coping skills she has been using which included: opposite action, gratitude, affirmations, getting her hair done, finding the bolden, and journaling. Pt engaged in discussion on habits and how they are formed. Pt gave examples of how to build healthy habits and reported benefitting from habit stacking. 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 Pt appeared to benefit from learning about building healthy habits and setting a habit goal. Will continue IOP aftercare to promote gains and reinforce healthy coping skills. ? Narrative Note: []
--- NOTE | 2025-04-06 15:31 | BH.DS ---
Discharge Summary Demographics Discharge Date: 04/06/25 Presenting Problems at Admission:: At aftercare admission pt reporting significant improvement in daily functioning and decrease in anxiety and depression. Client could benefit from aftercare program to help with maintenance of skills and progress. Pt continues to report that selling her mother?s condo and beginning a new job are stressors, as well as navigating physical health concerns and maintaining gains made in IOP tx. Discharge Diagnoses:: Major depressive disorder, recurrent, moderate; Generalized anxiety disorder Diagnosis Code(s):: F 33.1; F 41.1 Reason for Discharge:: Pt has accomplished tx goals AEB ability to maintain mood stability and gains made in IOP. Pt's DSM-5 scores remain lower than her IOP admission scores. Pt will transition to traditional outpatient counseling. Treatment Progress During Treatment & Response: Pt responded well and made progress in IOP aftercare as evidenced by pt's participation in group discussions and self-report of consistently applying coping skills. Pt's overall DSM-5 scores decreased from IOP admission. Pt?s depression decreased since original IOP admission and pt's scores for anxiety decreased compared to original IOP scores. Issues Still to be Addressed:: Client could benefit from continued reinforcement of healthy coping skills, reinforcement of maintenance plan, and continued work on boundary setting. Discharge Recommendations/Instructions:: Pt will continue seeing Dr. Alcaraz for psychiatric medication management. Pt recently saw Dr. Alcaraz on 02/13/25. Pt will follow up again in two months with Dr. Alcaraz. Pt also sees Samia Barreto who is a school psychology professor for weekly sessions which pt reports are therapeutic Discharge Handout
== END 2025-04-07 06:45 | disposition home or self-care (01) ==
LOC: BHOG 07:14
PROVIDERS: PCP Internal Medicine; Referring Provider Psychiatry & Neurology Psychiatry; Visit Provider Psychiatry & Neurology Psychiatry
DX: F33.1 Major depressive disorder, recurrent, moderate (principal); F41.1 Generalized anxiety disorder
CPT/HCPCS: 90853

== ENCOUNTER → 2025-04-12 | Outpatient (CLI) | payer BC, SELFPAY ==
[2025-04-17 18:08] LABS: HPV APTIMA, High Risk Negative (Negative)
== END | disposition home or self-care (01) ==
LOC: LABSPEC 16:24
PROVIDERS: PCP Internal Medicine; Referring Provider Advanced Practice Midwife; Visit Provider Advanced Practice Midwife
DX: Z12.4 Encounter for screening for malignant neoplasm of cervix (principal)
CPT/HCPCS: 87624; 88175; G0145

== ENCOUNTER → 2025-05-13 | Outpatient (CLI) | payer BC, SELFPAY ==
--- OUTSIDE RECORDS SUMMARY | 2025-05-13 10:25 | XMS RPT_ITS | CCD ---
Author Organization [facility] Care Team Providers Care Dianeticist Name Role Phone Tico Walker MD Primary Care Provider Dr. Rogers Bellamy Primary Care Provider [phone] Dr. Rogers Bellamy Attending Provider [phone] Dr. Rogers Bellamy Referring Provider [phone] Dr. Marino Trotter Attending Provider [phone] Dr. Rogers Bellamy Primary Care Provider [phone] Dr. Rogers Bellamy Referring Provider [phone] CHETAN Poon Attending Provider Dr. Marino Trotter Attending Provider [phone] Dr. Rogers Bellamy Attending Provider [phone] Dr. Rogers Bellamy Primary Care Provider [phone]) Dr. Rogers Bellamy Referring Provider [phone] Tico Walker MD Primary Care Provider Tico Walker MD Primary Care Provider [phone] Unavailable Primary Care Provider UnavailTico Mata MD Primary Care Provider [phone] TAD ANDERSEN Attending Unavailable GARY, SADIE Referring Unavailable GARY, SADIE Attending Unavailable FROILAN BROWN Referring Unavailable GARY, SADIE Referring Unavailable GARY, SAIDE Attending Unavailable FROILAN BROWN Attending Unavailable Maciel Alcaraz Attending Unavailable Rogers Bellamy Primary Care Unavailable April Schmidt Referring Unavailable April Schmidt Attending Unavailable Oleghe, Efewongbe Primary Care Unavailable Oleghe, Efewongbe Primary Care Unavailable Josselyn Javier Referring Unavailable Josselyn Javier Attending Unavailable Oleghe, Efewongbe Primary Care Unavailable SIMI SAHU Referring Unavailable SIMI SAHU Attending Unavailable Anna Huang Referring Unavailable Anna Huang Attending Unavailable Oleghe, Efewongbe Primary Care Unavailable Fernando Tavares Attending Unavailable Oleghe, Efewongbe Primary Care Unavailable Oleghe, Efewongbe Referring Unavailable Oleghe, Efewongbe Primary Care Unavailable Maciel Alcaraz Attending Unavailable Maciel Alcaraz Attending Unavailable Oleghe, Efewongbe Primary Care Unavailable April Schmidt Referring Unavailable April Schmidt Attending Unavailable Oleghe, Efewongbe Primary Care Unavailable Beatrice Martin Referring Unavailable Beatrice Martin Attending Unavailable Oleghe, Efewongbe Primary Care Unavailable Oleghe, Efewongbe Referring Unavailable Oleghe, Efewongbe Primary Care Unavailable Oleghe, Efewongbe Attending Unavailable Oleghe, Efewongbe Referring Unavailable Friend, Marino Attending Unavailable Oleghe, Efewongbe Primary Care Unavailable Anna Huang Attending Unavailable Anna Huang Referring Unavailable Oleghe, Efewongbe Primary Care Unavailable Sergo, Marino Referring Unavailable Friend, Marino Attending Unavailable Oleghe, Efewongbe Primary Care Unavailable Oleghe, Efewongbe Referring Unavailable Oleghe, Efewongbe Primary Care Unavailable Oleghe, Efewongbe Attending Unavailable Oleghe, Efewongbe Primary Care Unavailable Maciel Alcaraz Attending Unavailable Oleghe, Efewongbe Primary Care Unavailable Maciel Alcaraz Attending Unavailable Anna Huang Referring Unavailable Anna Huang Attending Unavailable Oleghe, Efewongbe Primary Care Unavailable Anna Huang Referring Unavailable Anna Huang Attending Unavailable Oleghe, Efewongbe Primary Care Unavailable Anna Huang Consulting Unavailable Oleghe, Efewongbe Referring Unavailable Oleghe, Efewongbe Attending Unavailable Oleghe, Efewongbe Primary Care Unavailable Beatrice Martin Attending Unavailable Oleghe, Efewongbe Primary Care Unavailable Oleghe, Efewongbe Referring Unavailable Oleghe, Efewongbe Referring Unavailable Oleghe, Efewongbe Primary Care Unavailable Maciel Graham Attending Unavailable Oleghe, Efewongbe Referring Unavailable Oleghe, Efewongbe Attending Unavailable Oleghe, Efewongbe Primary Care Unavailable Calista Garcia Attending Unavailable Oleghe, Efewongbe Primary Care Unavailable Oleghe, Efewongbe Referring Unavailable Friend, Marino Attending Unavailable Friend, Marino Consulting Unavailable Oleghe, Efewongbe Primary Care Unavailable Friend, Marino Attending Unavailable Oleghe, Efewongbe Primary Care Unavailable Oleghe, Efewongbe Referring Unavailable Oleghe, Efewongbe Referring Unavailable Oleghe, Efewongbe Primary Care Unavailable Oleghe, Efewongbe Attending Unavailable Allergies Allergy Classification Reported Allergen(s) Allergy Type Date of Onset Reaction(s) Facility (16 sources) Azithromycin; Translations: [AZITHROMYCIN] Drug Allergy 6 [facility] Work Phone: (16 sources) diazePAM; Translations: [DIAZEPAM] Drug Allergy 2 Other: See Comments [facility] (16 sources) Lisinopril; Translations: [LISINOPRIL] Drug Allergy 9 Other [facility] Work Phone: (16 sources) predniSONE; Translations: [PREDNISONE] Drug Allergy 2 Other: See Comments [facility] (1 source) paper tape Allergy to substance 2 blister [facility] Work Phone: (4 sources) water proof tape Allergy to substance 2 [facility] Work Phone: (4 sources) Adhesive Tape; Translations: [adhesive tape] Allergy to substance 2 Other [facility] (1 source) Adhesive agent Drug allergy (disorder) 5 [facility] (1 source) Azithromycin Drug Allergy 5 [facility] (1 source) diazePAM Drug Allergy 5 [facility] (1 source) Lisinopril Drug Allergy 5 [facility] (1 source) predniSONE Drug Allergy 5 [facility] Medications Current Medications Medication Drug Class(es) Dates Sig (Normalized) Sig (Original) 8 hr acetaminophen 650 mg extended release oral tablet (7 sources) Start: 07-10-2022 take 1 tablet by mouth every twelve hours Acetaminophen (Tylenol Arthritis Pain) 650 mg tablet extended release Active 650 MG PO Q12H July 09, 2022 11:00pm Start: 10-18-2018 End: 07-10-2022 take 1 capsule by mouth every six hours Acetaminophen (Tylenol) 325 mg capsule Discontinued 325 MG PO EVERY 6 HOURS October 18, 2018 12:00am July 10, 2022 3:09pm ascorbic acid 500 mg oral capsule (4 sources) Vitamin C Start: 09-03-2021 Ascorbic Acid (Vitamin C) Active MG PO September 03, 2021 12:00am biotin 1 mg oral capsule (4 sources) Start: 10-18-2018 take 1 mg by mouth once daily Biotin Active 1 MG PO DAILY October 18, 2018 12:00am cholecalciferol 0.025 mg oral capsule (15 sources) Vitamin D Start: 10-18-2018 take 1000 [IU] by mouth once daily Cholecalciferol (Vitamin D3) Active 1000 UNIT PO DAILY October 18, 2018 12:00am Comment on above: Take 1,000 Units by mouth once daily. CoQ10 (4 sources) Start: 03-05-2022 CoQ10 Active P O 1 time daily March 04, 2022 11:00pm Start: 03-05-2022 CoQ10 Active P O 1 time daily March 05, 2022 12:00am Cranberry Fruit Concentrate (4 sources) Non-Standardized Food Allergenic Extract, Non-Standardized Plant Allergenic Extract Start: 09-03-2021 take 1 tablet by mouth three times daily Cranberry Fruit Concentrate (Azo Cranberry) 250 mg tablet,chewable Active 250 MG PO THREE TIMES A DAY September 03, 2021 12:00am Start: 09-03-2021 take 1 tablet by addi th three times daily Cranberry Fruit Concentrate (Azo Cranberry) 250 mg tablet,chewable Active 250 MG PO THREE TIMES A DAY September 03, 2021 1:00am DULoxetine 30 mg delayed release oral capsule (20 sources) Serotonin and Norepinephrine Reuptake Inhibitor Start: 07-01-2016 take 90 mg by mouth once daily Duloxetine Active 90 MG PO DAILY June 30, 2016 11:00pm Start: 02-12-2009 duloxetine hcl (CYMBALTA 60 MG CAP) Take one(1) capsule daily. 0 02/12/2009 Active take 1 capsule by [facility] every twenty-four hours as needed DULoxetine (CYMBALTA) 30 mg capsule Take 30 mg by mouth at bedtime as needed. 0 Active Comment on above: Take one(1) capsule daily. Take 30 mg by mouth at bedtime as needed. Magnesium (15 sources) Start: 10-18-2018 take 250 mg by mouth once daily Magnesium Active 250 MG PO DAILY October 18, 2018 12:00am Start: 10-18-2018 take 250 mg by mouth once isabell y Magnesium Active 250 MG PO DAILY October 18, 2018 1:00am Magnesium 250 mg ORAL Tab Take 250 mg by mouth. 0 Active Comment on above: Take 250 mg by mouth . osmotic 24 hr metFORMIN hydrochloride 1000 mg extended release oral tablet (19 sources) Biguanide Start: 09-03-2021 take 1000 mg by mouth twice daily Metformin Active 1000 MG PO TWICE A DAY 180 90 September 03, 2021 12:00am Start: 07-01-2016 End: 09-03-2021 take 1000 mg by mouth twice daily at mealtime Metformin Discontinued 1000 MG PO TWICE DAILY WITH MEALS June 30, 2016 11:00pm September 03, 2021 2:53pm take 2 tablets by [facility] twice daily metFORMIN (GLUCOPHAGE) 500 mg tablet Take 500 mg by mouth twice daily. 2 tabs twice daily 0 Active take 1 tablet by [facility] four times daily metFORMIN (GLUCOPHAGE) 500 mg tablet Take 500 mg by mouth four times daily. 0 Active Comment on above: Take 500 mg by mouth four times daily. Take 500 mg by mouth twice daily. 2 tabs twice daily metoprolol tartrate 25 mg oral tablet (15 sources) beta-Adrenergic Dwight Start: 07-01-2016 take 25 mg by mouth twice daily Metoprolol Tartrate Active 25 MG PO TWICE A DAY June 30, 2016 11:00pm Comment on above: Take 25 mg by mouth twice daily. Almont-3 Fatty Acids (Fish Oil Concentrate) 1,000 mg capsule (4 sources) Start: 10-18-2018 take 1 capsule by mouth once daily Almont-3 Fatty Acids (Fish Oil Concentrate) 1,000 mg capsule Active 1000 MG PO DAILY October 18, 2018 12:00am Start: 10-18-2018 take 1 capsule by [facility] once daily Almont-3 Fatty Acids (Fish Oil Concentrate) 1,000 mg capsule Active 1000 MG PO DAILY October 18, 2018 1:00am rimegepant 75 mg disintegrating oral tablet (6 sources) Start: 01-14-2022 End: 08-20-2022 take 1 tablet by mouth once Rimegepant (Nurtec Odt) 75 mg tablet,disintegrating Active 75 MG PO ONCE July 09, 2022 11:00pm as a single dose Comment on above: Take 1 dissolvable t ablet by mouth once daily as needed for migraine attacks. Valerian Root (4 sources) Start: 10-18-2018 take 100 mg by mouth at bedtime Valerian Root Active 100 MG PO AT BEDTIME October 18, 2018 12:00am Start: 10-18-2018 take 100 mg by mouth at bedtim e Valerian Root Active 100 MG PO AT BEDTIME October 18, 2018 1:00am vitamin a 64942 unt oral tablet (4 sources) Vitamin A Start: 10-18-2018 take 21058 [IU] by mouth once daily Vitamin A Palmitate Active 73231 UNIT PO DAILY October 18, 2018 12:00am Vitamin B Complex (4 sources) Start: 05-15-2019 Vitamin B Comp ana Active 2 EACH PO DAILY May 14, 2019 11:00pm Start: 05-15-2019 Vitamin B Comp ana Active 2 EACH PO DAILY May 15, 2019 12:00am vitamin e 180 mg oral capsule (4 sources) Start: 11-04-2021 take 800 [IU] by mouth once daily Vitamin E Active 800 UNIT PO DAILY 60 November 04, 2021 12:00am Completed/Discontinued Medications Medication Drug Class(es) Dates Sig (Normalized) Sig (Original) acetaminophen 250 mg / aspirin 250 mg / caffeine 65 mg oral tablet (4 sources) Platelet Aggregation Inhibitor, Nonsteroidal Anti-inflammatory Drug, Central Nervous System Stimulant, Methylxanthine Start: 10-18-2018 End: 07-10-2022 take 2 tablets by mouth every six hours Aspirin-Acetamino phen-Caffeine (Excedrin Migraine) 250-250-65 mg tablet Discontinued 2 TABLET PO EVERY 6 HOURS October 18, 2018 12:00am July 10, 2022 3:09pm celecoxib 200 mg oral capsule (7 sources) Nonsteroidal Anti-inflammatory Drug Start: 01-11-2023 take 1 capsule by mouth twice daily as needed celecoxib (CELEBREX) 200 mg capsule TAKE 1 CAPSULE BY MOUTH TWICE A DAY NEEDED FOR 30 DAYS 0 01/11/2023 Active Start: 07-10-2022 take 1 capsule by [facility] twice daily Celecoxib (Celebrex) 200 mg capsule Active 200 MG PO TWICE A DAY July 09, 2022 11:00pm Comment on above: TAKE 1 CAPSULE BY [facility] TWICE A DAY NEEDED FOR 30 DAYS cephalexin 500 mg oral capsule (4 sources) Cephalosporin Antibacterial Start: 05-15-20 End: 09-03-20 take 500 mg by mouth twice daily Cephalexin Discontinued 500 MG PO TWICE A DAY May 14, 2019 11:00pm September 03, 2021 2:16pm cranberry fruit concentrate (AZO CRANBERRY ORAL) (4 sources) cranberry fruit concentrate (AZO CRANBERRY ORAL) Take by mouth. 0 Active Comment on above: Take by mouth. doxepin hydrochloride 10 mg oral capsule (4 sources) Tricyclic Antidepressant Start: 12-01-19 take 1 capsule by mouth every twenty-four hours as needed doxepin capsule 10 mg Take 10 mg by mouth at bedtime as needed. 0 11/30/2022 Active Comment on above: Take 10 mg by mouth at bedtime as needed. 0.5 ml dulaglutide 3 mg/ml auto-injector (4 sources) GLP-1 Receptor Agonist Start: 05-15-20 End: 03-05-20 Dulaglutide Discontinued 1.5 MG SQ POLANCO May 14, 2019 11:00pm March 05, 2022 4:01pm empagliflozin 10 mg oral tablet (8 sources) Sodium-Glucose Cotransporter 2 Inhibitor Start: 02-13-20 JARDIANCE 10 mg tablet Start: 03-05-2022 take 1 tablet by addi once daily Empagliflozin (Jardiance) 10 mg tablet Active 10 MG PO DAILY March 04, 2022 11:00pm hydroCHLOROthiazide 25 mg oral tablet (15 sources) Thiazide Diuretic Start: 12-10-2007 End: 09-03-2021 HYDROCHLOROTHIAZIDE 25 MG TAB Take one(1) tablet daily. 0 12/10/2007 Active Comment on above: Take one(1) tablet d aily. ibuprofen 200 mg oral capsule (11 sources) Nonsteroidal Anti-inflammatory Drug Ibuprofen 200 mg cap Take by mouth. 0 Active Comment on above: Take by mouth. losartan potassium 50 mg oral tablet (20 sources) Angiotensin 2 Receptor Dwight Start: 07-01-2016 End: 04-14-2022 take 50 mg by mouth once daily Losartan Discontinued 50 MG PO DAILY October 07, 2021 9:38am April 14, 2022 7:33am Comment on above: Take 50 mg by mouth once daily. mirtazapine 15 mg oral tablet (11 sources) take 1 tablet by mouth once daily at bedtime mirtazapine (REMERON) 15 mg tablet Take 15 mg by mouth daily at bedtime. 0 Active Comment on above: Take 15 mg by mouth daily at bedtime. naproxen sodium 220 mg oral capsule (4 sources) Nonsteroidal Anti-inflammatory Drug Start: 10-18-2018 End: 03-05-2022 take 1 capsule by mouth twice daily Naproxen Sodium (Aleve) 220 mg capsule Discontinued 220 MG PO TWICE A DAY October 18, 2018 12:00am March 05, 2022 4:02pm norethindrone 0.35 mg oral tablet (20 sources) Start: 04-25-2016 End: 04-25-2022 take 1 tablet by mouth once daily Norethindrone, Contraceptive, (ORTHO MICRONOR) 0.35 mg tablet Take 1 tablet by mouth once daily. 3 Package 3 04/25/2016 Active Comment on above: Take 1 tablet by addi th once daily. phentermine hydrochloride 37.5 mg oral capsule (4 sources) Sympathomimetic Amine Anorectic Start: 12-30-2021 End: 07-10-2022 take 37.5 mg by mouth once daily 30 minutes after breakfast Phentermine Discontinued 37.5 MG PO DAILY December 29, 2021 11:00pm July 10, 2022 3:08pm must administer 30 minutes before or 1-2 hours after breakfast pioglitazone 30 mg oral tablet (4 sources) Peroxisome Proliferator Receptor alpha Agonist, Peroxisome Proliferator Receptor gamma Agonist, Thiazolidinedione Start: 11-04-2021 End: 11-27-2021 take 1 tablet by mouth once daily Pioglitazone (Actos) 30 mg tablet Discontinued 30 MG PO DAILY November 04, 2021 12:00am November 27, 2021 4:08pm potassium chloride 10 meq extended release oral tablet (4 sources) Start: 09-08-2018 End: 09-03-2021 take 10 mEq by mouth once daily Potassium Chloride Discontinued 10 MEQ PO DAILY September 08, 2018 12:00am September 03, 2021 2:17pm rizatriptan 10 mg oral tablet (16 sources) Serotonin-1b and Serotonin-1d Receptor Agonist Start: 07-12-2021 End: 06-26-2023 rizatriptan (MAXALT) 10 mg tablet Indications: Migraine without aura and without status migrainosus, not intractable , Migraine with aura and without status migrainosus, not intractable 1 tab at earliest sign of migraine. May repeat once in 2 hours if needed. 12 tablet 11 01/14/2022 06/26/2023 Discontinued Start: 07-01-2016 Rizatriptan Ac tive 10 MG PO NEEDED June 30, 2016 11:00pm Comment on above: 1 tab at earliest si gn of migraine. May repeat once in 2 hours if needed. rOPINIRole 0.25 mg oral tablet (8 sources) Nonergot Dopamine Agonist Start: 01-29-2023 take 1 tablet by mouth at bedtime rOPINIRole (REQUIP) 0.25 mg tablet TAKE ONE TABLET BY MOUTH 1 TO 3 HOURS BEFORE BEDTIME 0 01/29/2023 Active Start: 09-03-2021 take 0.25 mg by mouth at bedti md Ropinirole Active 0.25 MG PO AT BEDTIME September 03, 2021 12:00am administer 1-3 hours before bedtime Comment on above: TAKE ONE TABLET BY M OUTH 1 TO 3 HOURS BEFORE BEDTIME ubidecarenone 75 mg oral capsule (15 sources) Start: 10-18-2018 End: 03-05-2022 Coenzyme Q10 (Ultra Coq10) 75 mg capsule Discontinued 75 MG PO DAILY October 18, 2018 12:00am March 05, 2022 3:59pm Coenzyme Q10 200 mg cap Take by mouth once daily. 0 Active Comment on above: Take by mouth once d aily. ubrogepant 100 mg oral tablet (9 sources) Start: 08-20-2022 End: 06-26-2023 ubrogepant (UBRELVY) 100 mg tablet Indications: Migraine with aura and without status migrainosus, not intractable , Migraine aura without headache Take 1 tab at migraine onset. May repeat once in 2 hours as needed. 16 tablet 11 08/20/2022 06/26/2023 Discontinued Comment on above: Take 1 tab at migrai ne onset. May repeat once in 2 hours as needed. ursodiol 300 mg oral capsule (20 sources) Bile Acid Start: 08-20-2022 take 1 capsule by mouth once daily ursodiol (ACTIGALL) 300 mg capsule Take 1 capsule by mouth once daily. 0 08/20/2022 Active Start: 06-30-2022 take 300 mg by mouth once isabell y Ursodiol Active 300 MG PO DAILY June 30, 2022 12:54pm Start: 11-04-2021 End: 08-20-2022 take 1 capsule by mouth twice daily ursodiol (ACTIGALL) 300 mg capsule Take 300 mg by mouth twice daily. 0 06/20/2022 08/20/2022 Discontinued (Adjust Sig - Block E-Cancel) Comment on above: Take 1 capsule by mo uth once daily. Take 300 mg by mouth twice daily. VITAMIN A ORAL (11 sources) VITAMIN A ORAL T bao by mouth. 0 Active Comment on above: Take by mouth. Zinc (4 sources) ZINC ORAL Take b y mouth. 0 Active Comment on above: Take by mouth. Problems Active Problems Problem Classification Problem Date Documented Date Episodic/Chronic Administrative/social admission (1 source) Stress at work; Translations: [Other physical and mental strain related to work] Episodic Anxiety disorders (7 sources) Mixed anxiety and depressive disorder; Translations: [Anxiety disorder, unspecified] Chronic Biliary tract disease (4 sources) Polyp of gallbladder; Translations: [Cholesterolosis of gallbladder] Episodic Delirium, dementia, and amnestic and other cognitive disorders (1 source) Cognitive disorder; Translations: [Unspecified mental disorder due to known physiological condition] 04-13-2023 Chronic Diabetes mellitus with complications (1 source) Type 2 diabetes mellitus with hyperglycemia; Translations: [Type 2 diabetes mellitus with hyperglycemia] Onset: 5 Chronic Diabetes mellitus without complication (10 sources) Type 2 diabetes mellitus; Translations: [Type 2 diabetes mellitus without complications] Onset: 5 Chronic Esophageal disorders (5 sources) Gastroesophageal reflux disease; Translations: [Gastro-esophageal reflux disease without esophagitis] Chronic Essential hypertension (20 sources) Essential hypertension; Translations: [Essential (primary) hypertension] Onset: 2 03-09-2012 Chronic Fever of unknown origin (4 sources) Fever; Translations: [Fever, unspecified] Episodic Headache; including migraine (20 sources) Migraine without aura, not refractory ; Translations: [Migraine without aura, not intractable, without status migrainosus] Onset: 2 Chronic Immunizations and screening for infectious disease (9 sources) Patient encounter status; Translations: [Encounter for screening for COVID-19] Episodic Menstrual disorders (16 sources) Menorrhagia; Translations: [Excessive and frequent menstruation with regular cycle] Onset: 3 03-10-2013 Chronic Miscellaneous mental health disorders (1 source) Psychophysiologic insomnia; Translations: [Psychophysiologic insomnia] Chronic Mood disorders (1 source) Major depressive disorder, single episode, unspecified; Translations: [Major depressive disorder, single episode, unspecified] Onset: 5 Chronic Noninfectious gastroenteritis (6 sources) Chronic diarrhea; Translations: [Noninfective gastroenteritis and colitis, unspecified] Episodic Nutritional deficiencies (1 source) Vitamin D deficiency, unspecified; Translations: [Vitamin D deficiency, unspecified] Onset: 5 Chronic Osteoarthritis (4 sources) Osteoarthritis; Translations: [Unspecified osteoarthritis, unspecified site] Chronic Other circulatory disease (4 sources) Raynaud's disease; Translations: [Raynaud's syndrome without gangrene] Chronic Other hereditary and degenerative nervous system conditions (2 sources) Impaired cognition; Translations: [Mild cognitive impairment, so stated] Chronic Other liver diseases (4 sources) Non-alcoholic fatty liver; Translations: [Fatty (change of) liver, not elsewhere classified] Chronic Other liver diseases (4 sources) Steatosis of liver; Translations: [Fatty (change of) liver, not elsewhere classified] Chronic Other liver diseases (7 sources) Hepatic fibrosis; Translations: [Hepatic fibrosis] Chronic Other liver diseases (6 sources) Fatty (change of) liver, not elsewhere classified; Translations: [Other chronic nonalcoholic liver disease] Onset: 5 Chronic Other liver diseases (4 sources) Large liver; Translations: [Hepatomegaly, not elsewhere classified] Episodic Other nutritional; endocrine; and metabolic disorders (4 sources) Morbid obesity; Translations: [Morbid (severe) obesity due to excess calories] Chronic Other nutritional; endocrine; and metabolic disorders (5 sources) Morbid (severe) obesity due to excess calories; Translations: [Morbid obesity] Chronic Other screening for suspected conditions (not mental disorders or infectious disease) (7 sources) Magnetic resonance imaging of brain abnormal; Translations: [Other abnormal findings on diagnostic imaging of central nervous system] Onset: 3 Episodic Residual codes; unclassified (17 sources) Obstructive sleep apnea syndrome; Translations: [Obstructive sleep apnea (adult) (pediatric)] Onset: 3 08-14-2013 Chronic Residual codes; unclassified (4 sources) History of clinical finding in subject; Translations: [Personal history of other specified conditions] Episodic Residual codes; unclassified (4 sources) Memory impairment; Translations: [Other amnesia] Episodic Skin and subcutaneous tissue infections (4 sources) Cellulitis of elbow; Translations: [Cellulitis of left upper limb] Episodic Viral infection (5 sources) Disease caused by 2019-nCoV; Translations: [COVID-19] Episodic Past or Other Problems Problem Classification Problem Date Documented Da te Episodic/Chronic Calculus of urinary tract (11 sources) History of calculus of kidney; Translations: [Personal history of urinary calculi] Onset: 03-10-2013 03-10-2013 Episodic Headache; including migraine (11 sources) Chronic daily headache; Translations: [Chronic daily headache] Onset: 01-14-2022 Episodic Residual codes; unclassified (3 sources) Unspecified symptoms and signs involving cognitive functions and awareness; Translations: [Other signs and symptoms involving cognition] Onset: 02-13-2023 Episodic Residual codes; unclassified (1 source) Other amnesia; Translations: [Memory impairment] Onset: 02-13-2023 Episodic Results Test Name Value Interpretation Reference Range Facility MR/[facility] 04-17-2025 MR/BMS. [place] [id number] OFFICE VISIT Date of Service: 04/17/25 MR#: [id number] Acct: [id number] Name: JOANNE STALLWORTH Rep #: [id number] : 1975 Provider: Dr. Maciel L See se, DO Age/Sex: 49/F Location: [facility] [place] Status: Signed Intake Vital Signs 02/13/25 10:35 04/12/25 12:38 04/17/25 15:43 Height 5 ft 11 in 5 ft 11 in 5 ft 11 in Weight: 298 lb BMI 41.5 BP 137/83 H Blood Pressure Location Lt brachial Position Sitting Respiration 16 Pulse 87 Pulse Source Monitor BP Intake Visit Reasons: 2 M FU Accompanied by: Self Allergies adhesive tape (paper tape) Allergy (Unknown, Verified 04/17/25 15:48) Other adhesive Allergy (Verified 04/17/25 15:48) Hives azithromycin (From Zithromax) Allergy (Verified 04/17/25 15:48) Hives diazepam (From Valium) Adverse Reaction (Verified 04/17/25 15:48) Other lisinopril Adverse Reaction (Verified 04/17/25 15:48) Cough prednisone Adverse Reaction (Verified 04/17/25 15:48) Flushing Medications ???Medication ???Instructions ???Recorded ???Confirmed ???Type rizatriptan 10 mg disintegrating 10 mg PO PRN PRN Migraine Symptoms 07/01/16 04/17/25 History tablet biotin 1 mg capsule 1 mg PO DAILY 10/18/18 04/17/25 Hi story cholecalciferol (vitamin D3) 25 2,000 unit PO DAILY 10/18/1804/17 History mcg (1,000 unit) capsule magnesium 250 mg tablet 250 mg PO DAILY 10/18/18 04/17/25 History ascorbic acid (vitamin C) 500 mg 500 mg PO DAILY 09/03/21 04/17/25 History capsule blood sugar diagnostic (Accu-Chek #10 ea 09/03/21 04/17/25 History Guide test strips) cranberry fruit concentrate 250 mg 250 mg PO DAILY 09/03/21 5 History chewable tablet (Azo Cranberry) lancets (Accu-Chek Fastclix Lancet #100 ea 09/03/21 04/17/25 Histor y Drum) vitamin E 268 mg (400 unit) capsule 800 unit PO DAILY #60 caps 10/1604/17/25 Rx CoQ10 100 mg PO 1XD 03/05/22 04/17/25 Hi story acetaminophen 650 mg 650 mg PO Q12H PRN pain 07/10/22 0 04/17/25 History tablet,extended release (Tylenol Arthritis Pain) celecoxib 200 mg capsule (Celebrex) 200 mg PO BID 07/10/22 04/17/25 History ropinirole 0.25 mg tablet 0.25 mg PO QHS #30 tabs 09/29/22 0 04/17/25 Rx multivitamin 1 tab PO DAILY 03/02/24 04/17/25 H istory losartan 100 mg tablet 100 mg PO DAILY #90 tabs 07/20/24 04/17/25 Rx cyanocobalamin (vitamin B-12) 50 50 mcg PO DAILY 09/08/24 04/17/25 History mcg tablet (Vitamin B-12) blood-glucose sensor (FreeStyle #1 ea 09/12/24 04/17/25 History Gavin 3 Plus Sensor device) doxepin 10 mg capsule See Rx Instructions .Route 5 04/17/25 Rx .COMPLEX #90 caps duloxetine 30 mg capsule,delayed See Rx Instructions .Route 5 04/17/25 Rx release .COMPLEX #90 caps duloxetine 60 mg capsule,delayed See Rx Instructions .Route 5 04/17/25 Rx release .COMPLEX #90 caps hydroxyzine HCl 25 mg tablet 25 mg PO BID PRN anxiety #60 tabs 12/05/24 04/17/25 Rx potassium chloride 20 mEq 20 meq PO DAILY #60 TABLETS 04/17/25 Rx tablet,extended release metformin 500 mg tablet,extended 1,000 mg PO BID 01/18/25 04/17/25 History release 24hr (osmotic) omega-3 fatty acids 1,000 mg 1,000 mg PO DAILY 01/18/25 5 History capsule vitamin A 2,400 mcg capsule 2,400 mcg PO DAILY 01/18/25 History fenofibrate 54 mg tablet 54 mg PO QDAY #60 tabs 01/24/25 Rx glimepiride 2 mg tablet 3 mg PO QDAY 02/13/25 04/17/25 His tory norethindrone (contraceptive) 0.35 See Rx Instructions .Route 02/1304/17/25 Rx mg tablet .COMPLEX #84 tabs ursodiol 250 mg tablet 250 mg PO DAILY #30 tabs 03/28/25 04/17/25 Rx hydrochlorothiazide 25 mg tablet 25 mg PO QAM #90 TABLETS 04/17/25 04/17/25 Rx metoprolol tartrate 50 mg tablet 50 mg PO BID 3 months #180 TABLETS 04/17/25 04/17/25 Rx tirzepatide 2.5 mg/0.5 mL mg subcut QWEEK 04/17/25 04/17/25 History subcutaneous pen injector ([place]) [facility] Medical History Hypertriglyceridemia Generalized anxiety disorder Major depressive disorder, recurrent, moderate Wears glasses Injury of head and neck Non-smoker BiPAP (biphasic positive airway pressure) dependence Shortness of breath on exertion History of stress test Health care maintenance Colon cancer screening Hypokalemia Insomnia Psoriasis Acute streptococcal pharyngitis Flu vaccine need Menstrual irregularity Fatty liver disease, nonalcoholic Osteoarthritis Morbid obesity ELVIS (obstructive sleep apnea) Type 2 diabetes mellitus Chronic diarrhea History of breast lump GERD (gastroesophageal reflux disease) Raynauds disease Anxiety and depression Sleep apnea Histor (more content not included)... Normal [facility] PAP IG HPV APTIMA 16/18,45on 04-17-2025 ADEQ Comment Normal . [facility] Comment on above: Order Comment: Speci men Comment: [id number] Specimen Comment: No. of containers..01 ThinPrep Vial Result Comment: Sati sfactory for evaluation. No endocervical component is identified. Performed By: #### L 7400.0280 #### [facility] [address] [place], [place], [id number] COMM . Normal . [facility] Comment on above: Order Comment: Speci men Comment: [id number] Specimen Comment: No. of containers..01 ThinPrep Vial Performed By: #### L 7400.0280 #### [facility] [address] [place], [place], [id number] COMMENT Comment Normal . [facility] Comment on above: Order Comment: Speci men Comment: [id number] Specimen Comment: No. of containers..01 ThinPrep Vial Result Comment: This liquid based ThinPrep(R) pap test was screened with the use of an image guided system. Performed By: #### L 7400.0280 #### [facility] [address] [place], [address] DIAG Comment Normal . [facility] Comment on above: Order Comment: Speci men Comment: [id number] Specimen Comment: No. of containers..01 ThinPrep Vial Result Comment: NEGA TIVE FOR INTRAEPITHELIAL LESION OR MALIGNANCY. Performed By: #### L 7400.0280 #### [facility] [address] [place], [address] HPV APTIMA, HR Negative Normal Negative [facility] Comment on above: Order Comment: Speci men Comment: [id number] Specimen Comment: No. of containers..01 ThinPrep Vial Result Comment: This nucleic acid amplification test detects fourteen high- risk HPV types (16,18,31,33,35,39,45,51,52,56,58,59,66,68) without differentiation. Performed By: #### L 7400.0280 #### [facility] [address] [place], [address] HPV Luba Rfx Comment Normal . [facility] Comment on above: Order Comment: Speci men Comment: [id number] Specimen Comment: No. of containers..01 ThinPrep Vial Result Comment: Crit erhazel not met, HPV Genotype not performed. Performed at: - [address] [id number] Diversity Intern: Vanessa Morris MD, Phone: [phone] Performed at: = - [address] [id number] Diversity Intern: Vanessa Morris MD, Phone: [phone] Performed By: #### L 7400.0280 #### [facility] [address] [place], [address] PAPSMR Comment Normal . [facility] Comment on above: Order Comment: Speci men Comment: [id number] Specimen Comment: No. of containers..01 ThinPrep Vial Result Comment: The Pap smear is a screening test designed to aid in the detection of premalignant and malignant conditions of the uterine cervix. It is not a diagnostic procedure and should not be used as the sole means of detecting cervical cancer. Both false-positive and false-negative reports do occur. Performed By: #### L 7400.0280 #### [facility] [address] [place], [place], [address] PERFORM Comment Normal . [facility] Comment on above: Order Comment: Speci men Comment: [id number] Specimen Comment: No. of containers..01 ThinPrep Vial Result Comment: Paz Rooney, Supervisor [employer] (ASCP) Performed By: #### L 7400.0280 #### [facility] [address] 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: No Is patient in pain?: No Allergies adhesive tape (paper tape) Allergy (Unknown, Verified 04/12/25 12:39) Other adhesive Allergy (Verified 04/12/25 12:39) Hives azithromycin (From Zithromax) Allergy (Verified 04/12/25 12:39) Hives diazepam (From Valium) Adverse Reaction (Verified 04/12/25 12:39) Other lisinopril Adverse Reaction (Verified 04/12/25 12:39) Cough prednisone Adverse Reaction (Verified 04/12/25 12:39) Flushing Medications ???Medication ???Instructions ???Recorded ???Confirmed ???Type rizatriptan 10 mg disintegrating 10 mg PO PRN PRN Migraine Symptoms 07/01/16 04/12/25 History tablet biotin 1 mg capsule 1 mg PO DAILY 10/18/18 04/12/25 Hi story cholecalciferol (vitamin D3) 25 2,000 unit PO DAILY 10/18/1804/12 History mcg (1,000 unit) capsule magnesium 250 mg tablet 250 mg PO DAILY 10/18/18 04/12/25 History ascorbic acid (vitamin C) 500 mg 500 mg PO DAILY 09/03/21 04/12/25 History capsule blood sugar diagnostic (Accu-Chek #10 ea 09/03/21 04/12/25 History Guide test strips) cranberry fruit concentrate 250 mg 250 mg PO DAILY 09/03/21 5 History chewable tablet (Azo Cranberry) lancets (Accu-Chek Fastclix Lancet #100 ea 09/03/21 04/12/25 Histor y Drum) vitamin E 268 mg (400 unit) capsule 800 unit PO DAILY #60 caps 10/1604/12/25 Rx CoQ10 100 mg PO 1XD 03/05/22 04/12/25 Hi story acetaminophen 650 mg 650 mg PO Q12H PRN pain 07/10/22 0 04/12/25 History tablet,extended release (Tylenol Arthritis Pain) celecoxib 200 mg capsule (Celebrex) 200 mg PO BID 07/10/22 04/12/25 History ropinirole 0.25 mg tablet 0.25 mg PO QHS #30 tabs 09/29/22 0 04/12/25 Rx multivitamin 1 tab PO DAILY 03/02/24 04/12/25 H istory losartan 100 mg tablet 100 mg PO DAILY #90 tabs 07/20/24 04/12/25 Rx metoprolol tartrate 50 mg tablet 50 mg PO BID 3 months #180 TABLETS 08/08/24 04/12/25 Rx cyanocobalamin (vitamin B-12) 50 50 mcg PO DAILY 09/08/24 04/12/25 History mcg tablet (Vitamin B-12) blood-glucose sensor (FreeStyle #1 ea 09/12/24 04/12/25 History Gavin 3 Plus Sensor device) hydrochlorothiazide 25 mg tablet 25 mg PO QAM #90 TABLETS 11/14/24 04/12/25 Rx doxepin 10 mg capsule See Rx Instructions .Route 5 04/12/25 Rx .COMPLEX #90 caps duloxetine 30 mg capsule,delayed See Rx Instructions .Route 5 04/12/25 Rx release .COMPLEX #90 caps duloxetine 60 mg capsule,delayed See Rx Instructions .Route 5 04/12/25 Rx release .COMPLEX #90 caps hydroxyzine HCl 25 mg tablet 25 mg PO BID PRN anxiety #60 tabs 12/05/24 04/12/25 Rx potassium chloride 20 mEq 20 meq PO DAILY #60 TABLETS 04/12/25 Rx tablet,extended release metformin 500 mg tablet,extended 1,000 mg PO BID 01/18/25 04/12/25 History release 24hr (osmotic) omega-3 fatty acids 1,000 mg 1,000 mg PO DAILY 01/18/25 5 History capsule vitamin A 2,400 mcg capsule 2,400 mcg PO DAILY 01/18/25 History fenofibrate 54 mg tablet 54 mg PO QDAY #60 tabs 01/24/25 Rx glimepiride 2 mg tablet 3 mg PO QDAY 02/13/25 04/12/25 His tory norethindrone (contraceptive) 0.35 See Rx Instructions .Route 02/1304/12/25 Rx mg tablet .COMPLEX #84 tabs ursodiol 250 mg tablet 250 mg PO DAILY #30 tabs 03/28/25 04/12/25 Rx Is last menstrual period known: Yes Last Menstrual Period: 09/10/24 Patient : No : No Current gender identity: female [facility] Medical History Hypertriglyceridemia Generalized anxiety disorder Major depressive disorder, recurrent, moderate Wears glasses Injury of head and neck Non-smoker BiPAP (biphasic positive airway pressure) dependence Shortness of breath on exertion History of stress test Health care maintenance Colon cancer screening Hypokalemia Insomnia Psoriasis Acute streptococcal pharyngitis Flu vaccine need Menstrual irregularity Fatty liver disease, nonalcoholic Osteoarthritis Morbid obesity ELVIS (obstructive sleep apnea) Type 2 diabetes mellitus Chronic diarrhea History of breast lump GERD (gastroesophageal reflux disease) Raynauds disease Anxiety and depression Sleep apnea History of kidney stones Pectus excava (more content not included)... Normal [facility] AST(SGOT)on 02-27-2025 AST [Catalytic activity/Vol] 22 U/L Normal <=31 [facility] Comment on above: Performed By: #### L 501.4100, L501.9985, L500.4100, L501.9520, L501.4405, L500.2500 #### [facility] [address] [place], [place], [id number] Alanine Aminotransferas (SGP T)on 02-27-2025 ALT [Catalytic activity/Vol] 24 U/L Normal <=34 [facility] Comment on above: Performed By: #### L 501.4100, L501.9985, L500.4100, L501.9520, L501.4405, L500.2500 ####[facility] [address] [place], [place], [id number] Basic Metabolic Profile (BMP )on 02-27-2025 BUN/CRE 18.1 RATIO Normal 10-20 [facility] Comment on above: Performed By: #### L 501.4100, L501.9985, L500.4100, L501.9520, L501.4405, L500.2500 #### [facility] [address] [facility] [place], [place], [id number] (809) Calcium [Mass/Vol] 9.7 mg/dL Normal 7.6-11.0 [facility] Comment on above: Performed By: #### L 501.4100, L501.9985, L500.4100, L501.9520, L501.4405, L500.2500 #### [facility] [address] [place], [address] Chloride [Moles/Vol] 94 mmol/L Low 98-108 [facility] Comment on above: Performed By: #### L 501.4100, L501.9985, L500.4100, L501.9520, L501.4405, L500.2500 #### [facility] [address] [place], [address] CO2 [Moles/Vol] 24.7 mmol/L Normal 21.0-32.0 [facility] Comment on above: Performed By: #### L 501.4100, L501.9985, L500.4100, L501.9520, L501.4405, L500.2500 #### [facility] [address] [place], [address] Creatinine [Mass/Vol] 0.65 mg/dL Low 0.70-1.20 [facility] Comment on above: Performed By: #### L 501.4100, L501.9985, L500.4100, L501.9520, L501.4405, L500.2500 #### [facility] [address] [place], [address] GAP 16 High 5-15 [facility] Comment on above: Performed By: #### L 501.4100, L501.9985, L500.4100, L501.9520, L501.4405, L500.2500 #### [facility] [address] [place], [address] GFR/1.73 sq M.predicted among non-blacks MDRD (S/P/Bld) [Vol rate/Area] 109 mL/min/{1.73_m2} Normal >60 [facility] Comment on above: Result Comment: mL/m in/1.73m2 CKD-EPI Creatinine Equation (2021) Performed By: #### L 501.4100, L501.9985, L500.4100, L501.9520, L501.4405, L500.2500 #### [facility] [address] [place], [address] Glucose [Mass/Vol] 236 mg/dL High 70-99 [facility] Comment on above: Performed By: #### L 501.4100, L501.9985, L500.4100, L501.9520, L501.4405, L500.2500 #### [facility] [address] [place], [address] Potassium [Moles/Vol] 4.1 mmol/L Normal 3.3-5.1 [facility] Comment on above: Performed By: #### L 501.4100, L501.9985, L500.4100, L501.9520, L501.4405, L500.2500 #### [facility] [address] [place], [address] Sodium [Moles/Vol] 134 mmol/L Normal 133-145 [facility] Comment on above: Performed By: #### L 501.4100, L501.9985, L500.4100, L501.9520, L501.4405, L500.2500 #### [facility] [address] [place], [address] Urea nitrogen [Mass/Vol] 12 mg/dL Normal 4-19 [facility] Comment on above: Performed By: #### L 501.4100, L501.9985, L500.4100, L501.9520, L501.4405, L500.2500 #### [facility] [address] [place], [address] Hemoglobin A1con 02-27-2025 HbA1c (Bld) [Mass fraction] 7.5 % High <=5.6 [facility] Comment on above: Result Comment: Norm al < 5.7 % Prediabetic 5.7 - 6.4 % Diabetic >or= 6.5 % Please note range changes. Performed By: #### L 501.4100, L501.9985, L500.4100, L501.9520, L501.4405, L500.2500 #### [facility] [address] [place], [address] Lipid Profileon 02-27-2025 CHOL:HDL 6.57 Normal [facility] Comment on above: Performed By: #### L 501.4100, L501.9985, L500.4100, L501.9520, L501.4405, L500.2500 #### [facility] [address] [place], [address] Cholesterol [Mass/Vol] 257 mg/dL High <=200 [facility] Comment on above: Result Comment: Chol esterol level, Desirable <200 mg/dL Borderline high cholesterol 200-239 mg/dL High cholesterol >=240 mg/dL Recommendations of the NCEP Adult Treatment Panel for the following risk-cutoff thresholds for the [place] population. Performed By: #### L 501.4100, L501.9985, L500.4100, L501.9520, L501.4405, L500.2500 #### [facility] [address] [place], [place], [address] Cholesterol in HDL [Mass/Vol] 39 mg/dL Low [facility] Comment on above: Result Comment: Ena onal Cholesterol Education Program (NCEP) guidelines: <40 mg/dL: Low HDL-cholesterol (major risk factor for CHD) >= 60 mg/dL: High HDL-cholesterol (negative risk factor for CHD) HDL-cholesterol is affected by a number of factors, e.g. smoking, exercise, hormones, sex and age. Performed By: #### L 501.4100, L501.9985, L500.4100, L501.9520, L501.4405, L500.2500 #### [facility] [address] [place], [address] Cholesterol in LDL [Mass/Vol] 109 mg/dL Normal [facility] Comment on above: Result Comment: Bord kprnio=369-491 mg/dL Higher Ugse=975 mg/dL or greater Performed By: #### L 501.4100, L501.9985, L500.4100, L501.9520, L501.4405, L500.2500 #### [facility] [address] [place], [address] Cholesterol in VLDL [Mass/Vol] 109 mg/dL High 5-40 [facility] Comment on above: Performed By: #### L 501.4100, L501.9985, L500.4100, L501.9520, L501.4405, L500.2500 #### [facility] [address] [place], [address] Triglyceride [Mass/Vol] 545 mg/dL High [facility] Comment on above: Result Comment: The drugs N-Acetylcysteine and Metamizole may falsely depress this assay. Normal range: <150 mg/dL Borderline High: 150-199 mg/dL High: 200-499 mg/dL Very High: >500 mg/dL Performed By: #### L 501.4100, L501.9985, L500.4100, L501.9520, L501.4405, L500.2500 #### [facility] [address] [place], [address] Thyroid Stim Hormone (TSH)on 02-27-2025 TSH 1.690 uIU/mL Normal 0.300-4.200 [facility] Comment on above: Performed By: #### L 501.4100, L501.9985, L500.4100, L501.9520, L501.4405, L500.2500 #### [facility] [address] [place], [address] /Stephen 02-13-2025 MR/ [address] [place] [address] OFFICE VISIT Date of Service: 02/13/25 MR#: [id number] Acct: [id number] Name: JOANNE STALLWORTH Rep #: [id number] : 1975 Provider: Dr. Maciel Shabazz se, DO Age/Sex: 49/F Location[place] [facility] [place] Status: Signed Intake Vital Signs 12/05/24 09:52 02/13/25 10:35 Height 5 ft 10 in 5 ft 11 in Weight: 299 lb BMI 41.7 BP 128/86 H Blood Pressure Location Lt brachial Position Sitting Respiration 17 Pulse 81 Pulse Source Monitor Pulse Oximetry (%) 99 Oxygen Delivery Method room air BP Intake Visit Reasons: 3 M FU Allergies adhesive tape (paper tape) Allergy (Unknown, Verified 02/13/25 10:38) Other adhesive Allergy (Verified 02/13/25 10:38) Hives azithromycin (From Zithromax) Allergy (Verified 02/13/25 10:38) Hives diazepam (From Valium) Adverse Reaction (Verified 02/13/25 10:38) Other lisinopril Adverse Reaction (Verified 02/13/25 10:38) Cough prednisone Adverse Reaction (Verified 02/13/25 10:38) [place] Medications ???Medication ???Instructions ???Recorded ???Confirmed ???Type rizatriptan 10 mg disintegrating 10 mg PO PRN PRN Migraine Symptoms 07/01/16 02/13/25 History tablet biotin 1 mg capsule 1 mg PO DAILY 10/18/18 02/13/25 Hi story cholecalciferol (vitamin D3) 25 2,000 unit PO DAILY 10/18/1802/13 History mcg (1,000 unit) capsule magnesium 250 mg tablet 250 mg PO DAILY 10/18/18 02/13/25 History ascorbic acid (vitamin C) 500 mg 500 mg PO DAILY 09/03/21 02/13/25 History capsule blood sugar diagnostic (Accu-Chek #10 ea 09/03/21 01/18/25 History Guide test strips) cranberry fruit concentrate 250 mg 250 mg PO DAILY 09/03/21 5 History chewable tablet (Azo Cranberry) lancets (Accu-Chek Fastclix Lancet #100 ea 09/03/21 01/18/25 Histor y Drum) vitamin E 268 mg (400 unit) capsule 800 unit PO DAILY #60 caps 10/1602/13/25 Rx CoQ10 100 mg PO 1XD 03/05/22 02/13/25 Hi story acetaminophen 650 mg 650 mg PO Q12H PRN pain 07/10/22 0 02/13/25 History tablet,extended release (Tylenol Arthritis Pain) celecoxib 200 mg capsule (Celebrex) 200 mg PO BID 07/10/22 02/13/25 History ropinirole 0.25 mg tablet 0.25 mg PO QHS #30 tabs 09/29/22 0 02/13/25 Rx multivitamin 1 tab PO DAILY 03/02/24 02/13/25 H istory ursodiol 250 mg tablet 250 mg PO DAILY #30 tabs 04/14/24 02/13/25 Rx losartan 100 mg tablet 100 mg PO DAILY #90 tabs 07/20/24 02/13/25 Rx metoprolol tartrate 50 mg tablet 50 mg PO BID 3 months #180 TABLETS 08/08/24 02/13/25 Rx cyanocobalamin (vitamin B-12) 50 50 mcg PO DAILY 09/08/24 02/13/25 History mcg tablet (Vitamin B-12) blood-glucose sensor (FreeStyle #1 ea 09/12/24 01/18/25 History Gavin 3 Plus Sensor device) hydrochlorothiazide 25 mg tablet 25 mg PO QAM #90 TABLETS 11/14/24 02/13/25 Rx doxepin 10 mg capsule See Rx Instructions .Route 5 02/13/25 Rx .COMPLEX #90 caps duloxetine 30 mg capsule,delayed See Rx Instructions .Route 5 02/13/25 Rx release .COMPLEX #90 caps duloxetine 60 mg capsule,delayed See Rx Instructions .Route 5 02/13/25 Rx release .COMPLEX #90 caps hydroxyzine HCl 25 mg tablet 25 mg PO BID PRN anxiety #60 tabs 12/05/24 02/13/25 Rx potassium chloride 20 mEq 20 meq PO DAILY #60 TABLETS 02/13/25 Rx tablet,extended release metformin 500 mg tablet,extended 1,000 mg PO BID 01/18/25 02/13/25 History release 24hr (osmotic) omega-3 fatty acids 1,000 mg 1,000 mg PO DAILY 01/18/25 5 History capsule vitamin A 2,400 mcg capsule 2,400 mcg PO DAILY 01/18/25 History fenofibrate 54 mg tablet 54 mg PO QDAY #60 tabs 01/24/25 Rx glimepiride 2 mg tablet 3 mg PO QDAY 02/13/25 02/13/25 His tory norethindrone (contraceptive) 0.35 See Rx Instructions .Route 02/13 Rx mg tablet .COMPLEX #84 tabs PFSH Medical History Hypertriglyceridemia Generalized anxiety disorder Major depressive disorder, recurrent, moderate Wears glasses Injury of head and neck Non-smoker BiPAP (biphasic positive airway pressure) dependence Shortness of breath on exertion History of stress test Health care maintenance Colon cancer screening Hypokalemia Insomnia Psoriasis Acute streptococcal pharyngitis Flu vaccine need Menstrual irregularity Fatty liver disease, nonalcoholic Osteoarthritis Morbid obesity ELVIS (obstructive sleep apnea) Type 2 diabetes mellitus Chronic diarrhea History of breast lump GERD (gastroesophageal reflux disease) Raynauds disease Anxiety and depression Sleep apnea History of kidney stones Pectus excavatum Chronic neck and back pain Difficulty balancing Migraines Knee pain S (more content not included)... Normal [facility] CBC W/Diff, Automatedon 05 Absolute Lymph 3.17 X10 3/uL Normal 0.83-4.51 [facility] Comment on above: Order Comment: DR.DI COX ORDERED LH,FSH,TSH,VITDDR.JERI ORDERED CBCD,CMP AND LIPID Performed By: #### L 500.4050, L100.0100, L506.1001, L3100.5170, L3100.5125, L501.9520, L500.4100 ####[facility] [address] [place], [place], [id number] Absolute Neut 7.1 X10 3/uL Normal 2.0-7.7 [facility] Comment on above: Order Comment: DR.DI COX ORDERED LH,FSH,TSH,VITDDR.OLEGHE ORDERED CBCD,CMP AND LIPID Performed By: #### L 500.4050, L100.0100, L506.1001, L3100.5170, L3100.5125, L501.9520, L500.4100 ####[facility] [address] [place], [address] Basophils/100 WBC (Bld) 0.5 % Normal 0-1 [facility] Comment on above: Order Comment: DR.DI COX ORDERED LH,FSH,TSH,VITDDR.OLEGHE ORDERED CBCD,CMP AND LIPID Performed By: #### L 500.4050, L100.0100, L506.1001, L3100.5170, L3100.5125, L501.9520, L500.4100 ####[facility] [address] [place], [address] Eosinophils/100 WBC (Bld) 0.7 % Normal 0-5 [facility] Comment on above: Order Comment: DR.DI COX ORDERED LH,FSH,TSH,VITDDR.OLEGHE ORDERED CBCD,CMP AND LIPID Performed By: #### L 500.4050, L100.0100, L506.1001, L3100.5170, L3100.5125, L501.9520, L500.4100 ####[facility] [address] [place], [address] Erythrocyte distribution width (RBC) [Ratio] 12.2 % Normal 11.6-14.6 [facility] Comment on above: Order Comment: DR.DI COX ORDERED LH,FSH,TSH,VITDDR.OLEGHE ORDERED CBCD,CMP AND LIPID Performed By: #### L 500.4050, L100.0100, L506.1001, L3100.5170, L3100.5125, L501.9520, L500.4100 ####[facility] [address] [place], [address] Hematocrit (Bld) [Volume fraction] 45.8 % Normal 37-47 [facility] Comment on above: Order Comment: DR.DI COX ORDERED LH,FSH,TSH,VITDDR.OLEGHE ORDERED CBCD,CMP AND LIPID Performed By: #### L 500.4050, L100.0100, L506.1001, L3100.5170, L3100.5125, L501.9520, L500.4100 ####[facility] [address] [place], [address] Hemoglobin (Bld) [Mass/Vol] 15.5 g/dL High 12.0-15.0 [facility] Comment on above: Order Comment: DR.DI COX ORDERED LH,FSH,TSH,VITDDR.OLEGHE ORDERED CBCD,CMP AND LIPID Performed By: #### L 500.4050, L100.0100, L506.1001, L3100.5170, L3100.5125, L501.9520, L500.4100 ####[facility] [address] [place], [address] IG% 0.900 Normal 0.0-0.9 [facility] Comment on above: Order Comment: DR.DI COX ORDERED LH,FSH,TSH,VITDDR.OLEGHE ORDERED CBCD,CMP AND LIPID Result Comment: IG% - Immature Granulocytes (promyelocytes, myelocytes and metamyelocytes) > 1% indicates that a LEFT SHIFT is Present. Performed By: #### L 500.4050, L100.0100, L506.1001, L3100.5170, L3100.5125, L501.9520, L500.4100 ####[facility] [address] [place], [address] Lymphocytes/100 WBC (Bld) 28.3 % Normal 19-41 [facility] Comment on above: Order Comment: DR.DI COX ORDERED LH,FSH,TSH,VITDDR.OLEGHE ORDERED CBCD,CMP AND LIPID Performed By: #### L 500.4050, L100.0100, L506.1001, L3100.5170, L3100.5125, L501.9520, L500.4100 ####[facility] [address] [place], [address] MCH (RBC) [Entitic mass] 31.6 pg Normal 27.0-32.0 [facility] Comment on above: Order Comment: DR.DI COX ORDERED LH,FSH,TSH,VITDDR.OLEGHE ORDERED CBCD,CMP AND LIPID Performed By: #### L 500.4050, L100.0100, L506.1001, L3100.5170, L3100.5125, L501.9520, L500.4100 ####[facility] [address] [place], [address] MCHC (RBC) [Mass/Vol] 33.8 g/dL Normal 32-36 [facility] Comment on above: Order Comment: DR.DI COX ORDERED LH,FSH,TSH,VITDDR.OLEGHE ORDERED CBCD,CMP AND LIPID Performed By: #### L 500.4050, L100.0100, L506.1001, L3100.5170, L3100.5125, L501.9520, L500.4100 ####[facility] [address] [place], [address] MCV (RBC) [Entitic vol] 93.3 fL Normal 81-99 [facility] Comment on above: Order Comment: DR.DI COX ORDERED LH,FSH,TSH,VITDDR.OLEGHE ORDERED CBCD,CMP AND LIPID Performed By: #### L 500.4050, L100.0100, L506.1001, L3100.5170, L3100.5125, L501.9520, L500.4100 ####[facility] [address] [place], [address] Monocytes/100 WBC (Bld) 6.4 % Normal 0-10 [facility] Comment on above: Order Comment: DR.DI COX ORDERED LH,FSH,TSH,VITDDR.OLEGHE ORDERED CBCD,CMP AND LIPID Performed By: #### L 500.4050, L100.0100, L506.1001, L3100.5170, L3100.5125, L501.9520, L500.4100 ####[facility] [address] [place], [address] Neutrophils/100 WBC (Bld) 63.2 % Normal 47-70 [facility] Comment on above: Order Comment: DR.DI COX ORDERED LH,FSH,TSH,VITDDR.OLEGHE ORDERED CBCD,CMP AND LIPID Performed By: #### L 500.4050, L100.0100, L506.1001, L3100.5170, L3100.5125, L501.9520, L500.4100 ####[facility] [address] [place], [address] Nucleated RBC (Bld) [#/Vol] 0 10*3/uL Normal 0-5 [facility] Comment on above: Order Comment: DR.DI COX ORDERED LH,FSH,TSH,VITDDR.OLEGHE ORDERED CBCD,CMP AND LIPID Performed By: #### L 500.4050, L100.0100, L506.1001, L3100.5170, L3100.5125, L501.9520, L500.4100 ####[facility] [address] [place], [address] Platelet mean volume (Bld) [Entitic vol] 9.3 fL Normal 6.2-12.0 [facility] Comment on above: Order Comment: DR.DI COX ORDERED LH,FSH,TSH,VITDDR.OLEGHE ORDERED CBCD,CMP AND LIPID Performed By: #### L 500.4050, L100.0100, L506.1001, L3100.5170, L3100.5125, L501.9520, L500.4100 ####[facility] [address] [place], [address] Platelets (Bld) [#/Vol] 385 10*3/uL Normal 150-450 [facility] Comment on above: Order Comment: DR.DI COX ORDERED LH,FSH,TSH,VITDDR.OLEGHE ORDERED CBCD,CMP AND LIPID Performed By: #### L 500.4050, L100.0100, L506.1001, L3100.5170, L3100.5125, L501.9520, L500.4100 ####[facility] [address] [place], [address] RBC (Bld) [#/Vol] 4.91 10*6/uL Normal 4.2-5.4 [facility] Comment on above: Order Comment: DR.DI COX ORDERED LH,FSH,TSH,VITDDR.OLEGHE ORDERED CBCD,CMP AND LIPID Performed By: #### L 500.4050, L100.0100, L506.1001, L3100.5170, L3100.5125, L501.9520, L500.4100 ####[facility] [address] [place], [address] RDW SD 42.1 fl Normal 35.1-43.9 [facility] Comment on above: Order Comment: DR.DI COX ORDERED LH,FSH,TSH,VITDDR.OLEGHE ORDERED CBCD,CMP AND LIPID Performed By: #### L 500.4050, L100.0100, L506.1001, L3100.5170, L3100.5125, L501.9520, L500.4100 ####[facility] [address] [place], [address] WBC (Bld) [#/Vol] 11.2 10*3/uL High 4.4-11.0 [facility] Comment on above: Order Comment: DR.DI COX ORDERED LH,FSH,TSH,VITDDR.OLEGHE ORDERED CBCD,CMP AND LIPID Performed By: #### L 500.4050, L100.0100, L506.1001, L3100.5170, L3100.5125, L501.9520, L500.4100 ####[facility] [address] [place], [address] Comprehensive Metabolic Prof [facility] 01-23-2025 Albumin [Mass/Vol] 4.3 g/dL Normal 3.5-5.0 [facility] Comment on above: Order Comment: DR.DI COX ORDERED LH,FSH,TSH,VITDDR.OLEGHE ORDERED CBCD,CMP AND LIPID Performed By: #### L 500.4050, L100.0100, L506.1001, L3100.5170, L3100.5125, L501.9520, L500.4100 ####[facility] [address] [place], [address] Albumin/Globulin [Mass ratio] 1.3 {ratio} Normal 0.9-2.4 [facility] Comment on above: Order Comment: DR.DI COX ORDERED LH,FSH,TSH,VITDDR.OLEGHE ORDERED CBCD,CMP AND LIPID Performed By: #### L 500.4050, L100.0100, L506.1001, L3100.5170, L3100.5125, L501.9520, L500.4100 ####[facility] [address] [place], [address] ALK PHOS 74 U/L Normal 35-104 [facility] Comment on above: Order Comment: DR.DI COX ORDERED LH,FSH,TSH,VITDDR.OLEGHE ORDERED CBCD,CMP AND LIPID Performed By: #### L 500.4050, L100.0100, L506.1001, L3100.5170, L3100.5125, L501.9520, L500.4100 ####[facility] [address] [place], [address] ALT [Catalytic activity/Vol] 16 U/L Normal <=34 [facility] Comment on above: Order Comment: DR.DI COX ORDERED LH,FSH,TSH,VITDDR.OLEGHE ORDERED CBCD,CMP AND LIPID Performed By: #### L 500.4050, L100.0100, L506.1001, L3100.5170, L3100.5125, L501.9520, L500.4100 ####[facility] [address] [place], [address] AST [Catalytic activity/Vol] 22 U/L Normal <=31 [facility] Comment on above: Order Comment: DR.DI COX ORDERED LH,FSH,TSH,VITDDR.OLEGHE ORDERED CBCD,CMP AND LIPID Result Comment: Hemo lysis present, Results??could be affected. ?? Performed By: #### L 500.4050, L100.0100, L506.1001, L3100.5170, L3100.5125, L501.9520, L500.4100 ####[facility] [address] [place], [address] Bilirubin [Mass/Vol] 0.23 mg/dL Normal 0.00-1.30 [facility] Comment on above: Order Comment: DR.DI COX ORDERED LH,FSH,TSH,VITDDR.OLEGHE ORDERED CBCD,CMP AND LIPID Performed By: #### L 500.4050, L100.0100, L506.1001, L3100.5170, L3100.5125, L501.9520, L500.4100 ####[facility] [address] [place], [address] BUN/CRE 33.2 RATIO High 10-20 [facility] Comment on above: Order Comment: DR.DI COX ORDERED LH,FSH,TSH,VITDDR.OLEGHE ORDERED CBCD,CMP AND LIPID Performed By: #### L 500.4050, L100.0100, L506.1001, L3100.5170, L3100.5125, L501.9520, L500.4100 ####[facility] [address] [place], [address] Calcium [Mass/Vol] 10.2 mg/dL Normal 7.6-11.0 [facility] Comment on above: Order Comment: DR.DI COX ORDERED LH,FSH,TSH,VITDDR.OLEGHE ORDERED CBCD,CMP AND LIPID Performed By: #### L 500.4050, L100.0100, L506.1001, L3100.5170, L3100.5125, L501.9520, L500.4100 ####[facility] [address] [place], [address] Chloride [Moles/Vol] 98 mmol/L Normal 98-108 [facility] Comment on above: Order Comment: DR.DI COX ORDERED LH,FSH,TSH,VITDDR.OLEGHE ORDERED CBCD,CMP AND LIPID Performed By: #### L 500.4050, L100.0100, L506.1001, L3100.5170, L3100.5125, L501.9520, L500.4100 ####[facility] [address] [place], [address] CO2 [Moles/Vol] 24.3 mmol/L Normal 21.0-32.0 [facility] Comment on above: Order Comment: DR.DI COX ORDERED LH,FSH,TSH,VITDDR.OLEGHE ORDERED CBCD,CMP AND LIPID Performed By: #### L 500.4050, L100.0100, L506.1001, L3100.5170, L3100.5125, L501.9520, L500.4100 ####[facility] [address] [place], [address] Creatinine [Mass/Vol] 0.69 mg/dL Low 0.70-1.20 [facility] Comment on above: Order Comment: DR.DI COX ORDERED LH,FSH,TSH,VITDDR.OLEGHE ORDERED CBCD,CMP AND LIPID Performed By: #### L 500.4050, L100.0100, L506.1001, L3100.5170, L3100.5125, L501.9520, L500.4100 ####[facility] [address] [place], [place], [phone] GAP 15 Normal 5-15 [facility] Comment on above: Order Comment: DR.DI COX ORDERED LH,FSH,TSH,VITDDR.OLEGHE ORDERED CBCD,CMP AND LIPID Performed By: #### L 500.4050, L100.0100, L506.1001, L3100.5170, L3100.5125, L501.9520, L500.4100 ####[facility] [address] [place], [place], [phone] GFR/1.73 sq M.predicted among non-blacks MDRD (S/P/Bld) [Vol rate/Area] 108 mL/min/{1.73_m2} Normal >60 [facility] Comment on above: Order Comment: DR.DI COX ORDERED LH,FSH,TSH,VITDDR.OLEGHE ORDERED CBCD,CMP AND LIPID Result Comment: mL/m in/1.73m2 CKD-EPI Creatinine Equation (2020) Performed By: #### L 500.4050, L100.0100, L506.1001, L3100.5170, L3100.5125, L501.9520, L500.4100 ####[facility] [address] [place], [place], [phone] Globulin (S) [Mass/Vol] 3.2 g/dL Normal 2.2-4.2 [facility] Comment on above: Order Comment: DR.DI COX ORDERED LH,FSH,TSH,VITDDR.OLEGHE ORDERED CBCD,CMP AND LIPID Performed By: #### L 500.4050, L100.0100, L506.1001, L3100.5170, L3100.5125, L501.9520, L500.4100 ####[facility] [address] [place], [place], [phone] Glucose [Mass/Vol] 145 mg/dL High 70-99 [facility] Comment on above: Order Comment: DR.DI COX ORDERED LH,FSH,TSH,VITDDR.OLEGHE ORDERED CBCD,CMP AND LIPID Performed By: #### L 500.4050, L100.0100, L506.1001, L3100.5170, L3100.5125, L501.9520, L500.4100 ####[facility] [address] [place], [address] Potassium [Moles/Vol] 4.4 mmol/L Normal 3.3-5.1 [facility] Comment on above: Order Comment: DR.DI COX ORDERED LH,FSH,TSH,VITDDR.OLEGHE ORDERED CBCD,CMP AND LIPID Result Comment: Hemo lysis present, Results??could be affected. ?? Performed By: #### L 500.4050, L100.0100, L506.1001, L3100.5170, L3100.5125, L501.9520, L500.4100 ####[facility] [address] [place], [address](917) Sodium [Moles/Vol] 137 mmol/L Normal 133-145 [facility] Comment on above: Order Comment: DR.DI COX ORDERED LH,FSH,TSH,VITDDR.OLEGHE ORDERED CBCD,CMP AND LIPID Performed By: #### L 500.4050, L100.0100, L506.1001, L3100.5170, L3100.5125, L501.9520, L500.4100 ####[facility] [address] [place], [place], [phone] T PROT 7.5 g/dL Normal 5.9-8.4 [facility] Comment on above: Order Comment: DR.DI COX ORDERED LH,FSH,TSH,VITDDR.OLEGHE ORDERED CBCD,CMP AND LIPID Performed By: #### L 500.4050, L100.0100, L506.1001, L3100.5170, L3100.5125, L501.9520, L500.4100 ####[facility] [address] [place], [place], [phone] Urea nitrogen [Mass/Vol] 23 mg/dL High 4-19 [facility] Comment on above: Order Comment: DR.DI COX ORDERED LH,FSH,TSH,VITDDR.JERI ORDERED CBCD,CMP AND LIPID Performed By: #### L 500.4050, L100.0100, L506.1001, L3100.5170, L3100.5125, L501.9520, L500.4100 ####[facility] [address] [place], [place], [phone] Follicle Stimulating Hormone on 01-23-2025 FSH 15.0 mIU/mL Normal [facility] Comment on above: Order Comment: DR.DI COX ORDERED LH,FSH,TSH,VITDDR.JERI ORDERED CBCD,CMP AND LIPID Result Comment: FEMA LE: Follicular: 1.4 - 18.1 mIU/mL Midcycle: 3.4 - 33.4 mIU/mL Luteal: 1.5 - 9.1 mIU/mL Post Menopause: 23.0 - 116.3 mIU/mL MALE: 1.4 - 18.1 mIU/mL NORMAL REFERENCE RANGES FEMALE FOLLICULAR 2.3 - 12.6 mIU/mL MID-CYCLE PEAK 5.2 - 17.5 mIU/mL LUTEAL 1.7 - 12.9 mIU/mL POST-MENOPAUSAL ON MHT 5.9 - 72.8 mIU/mL NOT ON MHT 12.7 - 132.2 mlU/mL MALE 0.7 - 10.8 mIU/mL Performed By: #### L 500.4050, L100.0100, L506.1001, L3100.5170, L3100.5125, L501.9520, L500.4100 ####[facility] [address] [place], [place], [phone] Lipid Profileon 01-23-2025 CHOL:HDL 5.06 Normal [facility] Comment on above: Order Comment: DR.DI COX ORDERED LH,FSH,TSH,VITDDR.JERI ORDERED CBCD,CMP AND LIPID Performed By: #### L 500.4050, L100.0100, L506.1001, L3100.5170, L3100.5125, L501.9520, L500.4100 ####[facility] [address] [place], [address] Cholesterol [Mass/Vol] 208 mg/dL High <=200 [facility] Comment on above: Order Comment: DR.DI COX ORDERED LH,FSH,TSH,VITDDR.JERI ORDERED CBCD,CMP AND LIPID Result Comment: Chol esterol level, Desirable <200 mg/dL Borderline high cholesterol 200-239 mg/dL High cholesterol >=240 mg/dL Recommendations of the NCEP Adult Treatment Panel for the following risk-cutoff thresholds for the [place] population. Performed By: #### L 500.4050, L100.0100, L506.1001, L3100.5170, L3100.5125, L501.9520, L500.4100 ####[facility] [address] [place], [address] Cholesterol in HDL [Mass/Vol] 41 mg/dL Normal [facility] Comment on above: Order Comment: DR.DI COX ORDERED LH,FSH,TSH,VITDDR.JERI ORDERED CBCD,CMP AND LIPID Result Comment: Ena onal Cholesterol Education Program (NCEP) guidelines: <40 mg/dL: Low HDL-cholesterol (major risk factor for CHD) >= 60 mg/dL: High HDL-cholesterol (negative risk factor for CHD) HDL-cholesterol is affected by a number of factors, e.g. smoking, exercise, hormones, sex and age. Performed By: #### L 500.4050, L100.0100, L506.1001, L3100.5170, L3100.5125, L501.9520, L500.4100 ####[facility] [address] [place], [address] Cholesterol in LDL [Mass/Vol] 81 mg/dL Normal [facility] Comment on above: Order Comment: DR.DI COX ORDERED LH,FSH,TSH,VITDDR.SARAVANANGHTorsten ORDERED CBCD,CMP AND LIPID Result Comment: Bord whtpyb=331-753 mg/dL Higher Azpv=401 mg/dL or greater Performed By: #### L 500.4050, L100.0100, L506.1001, L3100.5170, L3100.5125, L501.9520, L500.4100 ####[facility] [address] [place], [address] Cholesterol in VLDL [Mass/Vol] 86 mg/dL High 5-40 [facility] Comment on above: Order Comment: DR.DI COX ORDERED LH,FSH,TSH,VITDDR.JERI ORDERED CBCD,CMP AND LIPID Performed By: #### L 500.4050, L100.0100, L506.1001, L3100.5170, L3100.5125, L501.9520, L500.4100 ####[facility] [address] [place], [address] Triglyceride [Mass/Vol] 432 mg/dL High [facility] Comment on above: Order Comment: DR.DI COX ORDERED LH,FSH,TSH,VITDDR.JERI ORDERED CBCD,CMP AND LIPID Result Comment: The drugs N-Acetylcysteine and Metamizole may falsely depress this assay. Normal range: <150 mg/dL Borderline High: 150-199 mg/dL High: 200-499 mg/dL Very High: >500 mg/dL Performed By: #### L 500.4050, L100.0100, L506.1001, L3100.5170, L3100.5125, L501.9520, L500.4100 ####[facility] [address] [place], [address] Luteinizing Hormoneon 2024 LH 9.8 mIU/mL Normal [facility] Comment on above: Order Comment: DR.DI COX ORDERED LH,FSH,TSH,VITDDR.OLEGHTorsten ORDERED CBCD,CMP AND LIPID Result Comment: FEMA LE: Follicular: 1.9-12.5 mIU/mL Midcycle: 8.7-76.3 mIU/mL Luteal: 0.5-16.9 mIU/mL Post Menopause: 15.9-54.0 mIU/mL MALE: 20-70 Years: 1.5-9.3 mIU/mL >70 Years: 3.1-34.6 mIU/mL Performed By: #### L 500.4050, L100.0100, L506.1001, L3100.5170, L3100.5125, L501.9520, L500.4100 ####[facility] [address] [place], [address] Thyroid Stim Hormone (TSH)on 01-23-2025 TSH 2.640 uIU/mL Normal 0.300-4.200 [facility] Comment on above: Order Comment: DR.DI COX ORDERED LH,FSH,TSH,VITDDR.OLEGHE ORDERED CBCD,CMP AND LIPID Performed By: #### L 500.4050, L100.0100, L506.1001, L3100.5170, L3100.5125, L501.9520, L500.4100 ####[facility] [address] [place], [address] Vitamin D,25 Hydroxyon 01-23 Vitamin D 25-OH 28.6 ng/mL Low 30-100 [facility] Comment on above: Order Comment: DR.DI COX ORDERED LH,FSH,TSH,VITDDR.OLEGHE ORDERED CBCD,CMP AND LIPID Result Comment: Cristina min D Status Deficiency: <20 ng/mL (50nmol/L) Insufficiency: 20-30 ng/mL (50-75 nmol/L) Sufficiency: 30-100 ng/mL (75-250 nmol/L) Toxicity: >100 ng/mL (>250 nmol/L) Performed By: #### L 500.4050, L100.0100, L506.1001, L3100.5170, L3100.5125, L501.9520, L500.4100 ####[facility] [address] [place], [address] Internal Medicine Office Vis itonicholas 01-18-2025 Internal Medicine Office Visit [facility] [address] [place] [address] [place] [address] OFFICE VISIT Date of Service: 01/18/25 MR#: [id number] Acct: [id number] Name: JOANNE STALLWORTH Rep #: [id number] : 1975 Provider: Dr. 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: No Is patient in pain?: No Allergies adhesive tape (paper tape) Allergy (Unknown, Verified 01/18/25 16:11) Other adhesive Allergy (Verified 01/18/25 16:11) Hives azithromycin (From Zithromax) Allergy (Verified 01/18/25 16:11) Hives diazepam (From Valium) Adverse Reaction (Verified 01/18/25 16:11) Other lisinopril Adverse Reaction (Verified 01/18/25 16:11) Cough prednisone Adverse Reaction (Verified 01/18/25 16:11) Flushing Medications ???Medication ???Instructions ???Recorded ???Confirmed ???Type rizatriptan 10 mg disintegrating 10 mg PO PRN PRN Migraine Symptoms 07/01/16 01/18/25 History tablet biotin 1 mg capsule 1 mg PO DAILY 10/18/18 01/18/25 Hi story cholecalciferol (vitamin D3) 25 2,000 unit PO DAILY 10/18/1801/18 History mcg (1,000 unit) capsule magnesium 250 mg tablet 250 mg PO DAILY 10/18/18 01/18/25 History ascorbic acid (vitamin C) 500 mg 500 mg PO DAILY 09/03/21 01/18/25 History capsule blood sugar diagnostic (Accu-Chek #10 ea 09/03/21 01/18/25 History Guide test strips) cranberry fruit concentrate 250 mg 250 mg PO DAILY 09/03/21 5 History chewable tablet (Azo Cranberry) lancets (Accu-Chek Fastclix Lancet #100 ea 09/03/21 01/18/25 Histor y Drum) vitamin E 268 mg (400 unit) capsule 800 unit PO DAILY #60 caps 10/1601/18/25 Rx CoQ10 100 mg PO 1XD 03/05/22 01/18/25 Hi story acetaminophen 650 mg 650 mg PO Q12H PRN pain 07/10/22 0 01/18/25 History tablet,extended release (Tylenol Arthritis Pain) celecoxib 200 mg capsule (Celebrex) 200 mg PO BID 07/10/22 01/18/25 History ropinirole 0.25 mg tablet 0.25 mg PO QHS #30 tabs 09/29/22 0 01/18/25 Rx glimepiride 2 mg tablet 2 mg PO TID 03/02/24 01/18/25 Hist ory multivitamin 1 tab PO DAILY 03/02/24 01/18/25 H istory ursodiol 250 mg tablet 250 mg PO DAILY #30 tabs 04/14/24 01/18/25 Rx norethindrone (contraceptive) 0.35 See Rx Instructions .Route 05/1901/18/25 Rx mg tablet .COMPLEX #84 tabs losartan 100 mg tablet 100 mg PO DAILY #90 tabs 07/20/24 01/18/25 Rx metoprolol tartrate 50 mg tablet 50 mg PO BID 3 months #180 TABLETS 08/08/24 01/18/25 Rx cyanocobalamin (vitamin B-12) 50 50 mcg PO DAILY 09/08/24 01/18/25 History mcg tablet (Vitamin B-12) blood-glucose sensor (FreeStyle #1 ea 09/12/24 01/18/25 History Gavin 3 Plus Sensor device) hydrochlorothiazide 25 mg tablet 25 mg PO QAM #90 TABLETS 11/14/24 01/18/25 Rx doxepin 10 mg capsule See Rx Instructions .Route 5 01/18/25 Rx .COMPLEX #90 caps duloxetine 30 mg capsule,delayed See Rx Instructions .Route 5 01/18/25 Rx release .COMPLEX #90 caps duloxetine 60 mg capsule,delayed See Rx Instructions .Route 5 01/18/25 Rx release .COMPLEX #90 caps hydroxyzine HCl 25 mg tablet 25 mg PO BID PRN anxiety #60 tabs 12/05/24 01/18/25 Rx potassium chloride 20 mEq 20 meq PO DAILY #60 TABLETS 01/18/25 Rx tablet,extended release metformin 500 mg tablet,extended 1,000 mg PO BID 01/18/25 01/18/25 History release 24hr (osmotic) omega-3 fatty acids 1,000 mg 1,000 mg PO DAILY 01/18/25 5 History capsule vitamin A 2,400 mcg capsule 2,400 mcg PO DAILY 01/18/25 History Nurse's Note: Doing IOP at [facility] is feeling well, and not had any medication changes. Will have FSH,LH and some other labs drawn. through Dr. Moffett [facility] Medical History Generalized anxiety disorder Major depressive disorder, recurrent, moderate Wears glasses Injury of head and neck Non-smoker BiPAP (biphasic positive airway pressure) dependence Shortness of breath on exertion History of stress test Health care maintenance Colon cancer screening Hypokalemia Insomnia Psoriasis Acute streptococcal pharyngitis Flu vaccine need Menstrual irregularity Fatty liver disease, nonalcoholic Osteoarthritis Morbid obesity ELVIS (obstructive sleep apnea) Type 2 diabetes mellitus Chronic diarrhea History of breast lump KAMAR (more content not included)... Normal [facility] Gastroenterology Visit Repor ton 12-05-2024 Gastroenterology Visit Report [facility] [address] [place] [address] OFFICE VISIT Date of Service: 12/05/24 MR#: [id number] Acct: [id number] Name: JOANNE STALLWORTH Rep #: [id number] : 1975 Provider: Marino Friend, DO Age/Sex: 49/F Location: [facility] [place] Status: Signed Intake Vital Signs 03/02/24 10:05 09/12/24 09:57 12/05/24 09:52 Height 5 ft 10 in 5 ft 10 in 5 ft 10 in Intake Visit Reasons: 6 M FU Allergies adhesive tape (paper tape) Allergy (Unknown, Verified 11/25/24 09:49) Other adhesive Allergy (Verified 11/25/24 09:49) Hives azithromycin (From Zithromax) Allergy (Verified 11/25/24 09:49) Hives diazepam (From Valium) Adverse Reaction (Verified 11/25/24 09:49) Other lisinopril Adverse Reaction (Verified 11/25/24 09:49) Cough prednisone Adverse Reaction (Verified 11/25/24 09:49) Flushing Medications ???Medication ???Instructions ???Recorded ???Confirmed ???Type rizatriptan 10 mg disintegrating 10 mg PO PRN PRN Migraine Symptoms 07/01/16 12/05/24 History tablet biotin 1 mg capsule 1 mg PO DAILY 10/18/18 12/05/24 Hi story cholecalciferol (vitamin D3) 25 1,000 unit PO DAILY 10/18/1812/05 History mcg (1,000 unit) capsule magnesium 250 mg tablet 250 mg PO DAILY 10/18/18 12/05/24 History omega-3 fatty acids 1,000 mg 1,000 mg PO DAILY 10/18/18 5 History capsule (Fish Oil Concentrate) vitamin A palmitate 3,000 mcg 10,000 unit PO DAILY 10/18/1811/13 History (10,000 unit) tablet ascorbic acid (vitamin C) 500 mg 500 mg PO DAILY 09/03/21 12/05/24 History capsule blood sugar diagnostic (Accu-Chek #10 ea 09/03/21 12/05/24 History Guide test strips) cranberry fruit concentrate 250 mg 250 mg PO DAILY 09/03/21 5 History chewable tablet (Azo Cranberry) lancets (Accu-Chek Fastclix Lancet #100 ea 09/03/21 12/05/24 Histor y Drum) metformin 1,000 mg tablet,extended 1,000 mg PO BID 3 months #180 ta bs 09/03/21 12/05/24 Rx release 24hr (osmotic) vitamin E 268 mg (400 unit) capsule 800 unit PO DAILY #60 caps 10/1612/05/24 Rx CoQ10 200 mg PO 1XD 03/05/22 12/05/24 Hi story acetaminophen 650 mg 650 mg PO Q12H PRN pain 07/10/22 0 12/05/24 History tablet,extended release (Tylenol Arthritis Pain) celecoxib 200 mg capsule (Celebrex) 200 mg PO BID 07/10/22 12/05/24 History ropinirole 0.25 mg tablet 0.25 mg PO QHS #30 tabs 09/29/22 0 12/05/24 Rx dapagliflozin propanediol 10 mg 10 mg PO QDAY 03/02/24 12/05/24 Hi story tablet (Farxiga) glimepiride 2 mg tablet 2 mg PO BID 03/02/24 12/05/24 Hist ory multivitamin 1 tab PO DAILY 03/02/24 12/05/24 H istory ursodiol 250 mg tablet 250 mg PO DAILY #30 tabs 04/14/24 12/05/24 Rx norethindrone (contraceptive) 0.35 See Rx Instructions .Route 05/1912/05/24 Rx mg tablet .COMPLEX #84 tabs potassium chloride 20 mEq 20 meq PO DAILY #60 tabs 06/14/24 12/05/24 Rx tablet,extended release losartan 100 mg tablet 100 mg PO DAILY #90 tabs 07/20/24 12/05/24 Rx metoprolol tartrate 50 mg tablet 50 mg PO BID 3 months #180 TABLETS 08/08/24 12/05/24 Rx cyanocobalamin (vitamin B-12) 50 50 mcg PO DAILY 09/08/24 12/05/24 History mcg tablet (Vitamin B-12) blood-glucose sensor (FreeStyle #1 ea 09/12/24 12/05/24 History Gavin 3 Plus Sensor device) hydrochlorothiazide 25 mg tablet 25 mg PO QAM #90 TABLETS 11/14/24 12/05/24 Rx doxepin 10 mg capsule See Rx Instructions .Route 5 12/05/24 Rx .COMPLEX #90 caps duloxetine 30 mg capsule,delayed See Rx Instructions .Route 5 12/05/24 Rx release .COMPLEX #90 caps duloxetine 60 mg capsule,delayed See Rx Instructions .Route 5 12/05/24 Rx release .COMPLEX #90 caps hydroxyzine HCl 25 mg tablet 25 mg PO BID PRN anxiety #60 tabs 12/05/24 12/05/24 Rx PFSH Medical History Wears glasses Depression Anxiety Injury of head and neck Non-smoker BiPAP (biphasic positive airway pressure) dependence Shortness of breath on exertion History of stress test Health care maintenance Colon cancer screening Hypokalemia Insomnia Psoriasis MDD (major depressive disorder) Acute streptococcal pharyngitis Flu vaccine need Menstrual irregularity Fatty liver disease, nonalcoholic Osteoarthritis Morbid obesity ELVIS (obstructive sleep apnea) Type 2 diabetes mellitus Chronic diarrhea History of breast lump GERD (gastroesophageal reflux disease) Raynauds disease Anxiety and depression Sleep apnea History of kidney stones Pectus excavatum Chronic neck and back pain Difficulty balancing Migraines Knee pain Severe headache Anemia Diabetes Shoulder pain Arthritis Hypertension Surgical History ... Normal [facility] MR/BMS.BPon 12-05-2024 MR/BMS.BP [address], [place] [address] OFFICE VISIT Date of Service: 12/05/24 MR#: [id number] Acct: [id number] Name: JOANNE STALLWORTH Rep #: [id number] : 1975 Provider: Dr. Maciel Shabazz se, DO Age/Sex: 49/F Location: [facility] [place] Status: Signed Intake Vital Signs 09/12/24 09:57 12/05/24 09:52 Height 5 ft 10 in 5 ft 10 in BP 109/72 Blood Pressure Location Lt brachial Position Sitting Respiration 16 Pulse 83 Pulse Source Monitor BP Intake Visit Reasons: 3mfu Allergies adhesive tape (paper tape) Allergy (Unknown, Verified 11/25/24 09:49) Other adhesive Allergy (Verified 11/25/24 09:49) Hives azithromycin (From Zithromax) Allergy (Verified 11/25/24 09:49) Hives diazepam (From Valium) Adverse Reaction (Verified 11/25/24 09:49) Other lisinopril Adverse Reaction (Verified 11/25/24 09:49) Cough prednisone Adverse Reaction (Verified 11/25/24 09:49) Flushing [facility] Medical History Wears glasses Depression Anxiety Injury of head and neck Non-smoker BiPAP (biphasic positive airway pressure) dependence Shortness of breath on exertion History of stress test Health care maintenance Colon cancer screening Hypokalemia Insomnia Psoriasis MDD (major depressive disorder) Acute streptococcal pharyngitis Flu vaccine need Menstrual irregularity Fatty liver disease, nonalcoholic Osteoarthritis Morbid obesity ELVIS (obstructive sleep apnea) Type 2 diabetes mellitus Chronic diarrhea History of breast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 Name: JOANNE STALLWORTH Rep #: [id number] : 1975 49 From: Dago Grijalva PCP: Dr. Rogers Bellamy MD [place] [facility] [place] Race: C Location: [place] [address] Anesthesia: Postop Eval I Current Vital Signs Temperature: 97.3 F Pulse Rate: 76 Blood Pressure: 85/50 Respiratory Rate: 16 Pulse Ox: 97 Oxygen Delivery Method: Room Air Assessment Airway patent: Yes Spontaneous unlabored respirations: Yes Mental status: Awake and Calm nausea: No Vomiting: No Anesthesia Complication: No Fluid Hydration Crystalloid volume administer (ml): 40 Total IV fluid infused: 40 Progress Note Anesthesia document: Postop Eval 1 completed: Yes 09/09/24 1249 Date Dago Grijalva Cosigner Signature: CC: Signed Normal [facility] MR/VVGUZZTO0ke 09-09-2024 MR/POSTOPAN2 [facility] Medical Records Department [address] [place] [address] Anesthesia Postop Eval II 09/09/24 1352 MR#: [id number] Acct: [id number] Name: JOANNE STALLWORTH Rep #: [id number] : 1975 49 From: Marcelo Price MD PCP: Dr. Rogers Bellamy MD Status:[facility] Y Race: C Location: [place] Anesthesia Postop Eval I Sum Postop Eval Completion status Anesthesia document: Postop Eval 1 completed: Yes Anesthesia Postop Eval I Summary Anesthesia Postop Eval I Summary: Anesthesia Postop Eval I: Assessment Summary Airway patent Yes 09/09/24 12:49 [email or web address] Spontaneous unlabored Yes 09/09/24 12:49 [email or web address] respirations Mental status Awake,Calm 09/09/24 12:49 [email or web address] nausea No 09/09/24 12:49 [email or web address] Vomiting No 09/09/24 12:49 [email or web address] Anesthesia Postop Eval I: Fluid Summary Crystalloid volume administer 40 09/09/24 12:49 [email or web address] (ml) Colloids volume administered ( ml) Blood Product volume administered (ml) Total IV fluid infused 40 09/09/24 12:49 [email or web address] Anesthesia Postop Eval I: Summary Notes Anesthesia Complication No 09/09/24 12:49 [email or web address] Anesthesia Complication Comment: Post-operative progress note Anesthesia: Postop Eval II Evaluation Mental status: Awake Pain Level: 0 nausea: No Vomiting: No 09/09/24 1352 Date Marcelo Weeman MD Cosigner Signature: Date CC: Signed Normal [facility] ,Urineon 09-09-2024 Beta HCG ( test) Ql (U) Negative Normal [facility] Comment on above: Result Comment: Very dilute urine specimens, as indicated by a low specific gravity, may not contain public relations representative levels of hCG. If is still suspected, a first morning urine specimen should be collected 48 hours later and tested. Performed By: #### L 400.7600 ####[facility] [address] [facility] [place], [address] MR/PAT.BRADY 09-08-2024 MR/PAT.[facility] Medical Records Department [address] [place] [address] PAT - Anesthesia 09/08/24 1129 MR#: [id number] Acct: [id number] Name: JOANNE STALLWORTH Rep #: [id number] : 1975 49 From: Froilan Lerma MD PCP: Dr. 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 When Was Last Pacemaker Check QUESTION #4 FULL TEXT: You/Your Family Experience fever (hyperthermia) with Anesthesia Last Oral Intake Last Oral intake: Last Oral Intake NPO since Meds taken in AM with sips of water? Meds patient instructed to take am of surgery PONV PONV - tooling manager: PONV - tooling manager Female Yes 09/08/24 11:07 HX of Motion Sickness No 09/08/24 11:07 HX of N/V After Surgery No 09/08/24 11:07 Non-Smoker Yes 09/08/24 11:07 Duration of Surgery greater No 09/08/24 11:07 than 60 minutes Number of Risk Factors 2 09/08/24 11:07 PONV Score Moderate Risk 09/08/24 11:07 Height Weight Height Weight: Anesthesia: Height Weight Height 5 ft 11 in 07/20/24 09:33 Respiratory Assessment Respiratory Assessment - tooling manager: Respiratory Tract Infection Hx - tooling manager Hx Respiratory Tract Infection No 09/08/24 11:07 STOP Sleep Apnea STOP Sleep Apnea - tooling manager: STOP Sleep Apnea - tooling manager Hx Hypertension Yes: CONTROLLED ON MED 09/08/24 11:07 Hx Sleep Apnea Yes: BIPAP 09/08/24 11:07 CPAP No 09/08/24 11:07 BIPAP Yes 09/08/24 11:07 Do you snore loudly (louder than talking or can be heard Do you often feel tired/ fatigued/ sleepy during daytime? Has anyone observed you stop breathing during sleep? STOP Results Positive 09/08/24 11:07 QUESTION #5 FULL TEXT : Do you snore loudly (louder than talking or can be heard through closed doors)? 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 Specify any problems Hx of Preganancy in last 3 No 09/08/24 11:07 Months Nurse Filling Out Transfusion VCHRISTIN 09/08/24 11:07 Questions: Date: 09/08/24 09/08/24 11:07 Time: 11:09 09/08/24 11:07 Patient unable to answer at this time (ie. confused, unrespo /Reproduction History /Reproductive History - tooling manager: /Reproductive Hx- tooling manager Hx Now No 09/08/24 11:07 Gestational Age (in weeks): EDC: Hx Hx Para Hx Section SAB No 09/08/24 11:07 [facility] Medical History (Updated 09/08/24 @ 11:07 by Jaquelin Emanuel) Wears glasses Depression Anxiety Injury of head and neck Non-smoker BiPAP (biphasic positive airway pressure) dependence Shortness of breath on exertion History of stress test Health care maintenance Colon cancer screening Hypokalemia Insomnia Psoriasis MDD (major depressive disorder) Acute streptococcal pharyngitis Flu vaccine need Menstrual irregularity Fatty liver disease, nonalcoholic Osteoarthritis Morbid obesity ELVIS (obstructive sleep apnea) Type 2 diabetes mellitus Chronic diarrhea History of breast lump GERD (gastroesophageal reflux disease) Raynauds disease Anxiety and depression Sleep apnea History of kidney stones Pectus excavatum Chronic neck and back pain Difficulty balancing Migraines Knee pain Severe headache Anemia Diabetes Shoulder pain Arthritis Hypertension Home Medications ???Medication ? (more content not included)... Normal [facility] ABD Limited w/ Elastographyo n 09-05-2024 ABD Limited w/ Elastography [facility] Imaging Services [address] [place] [address] ABD Limited w/ Elastography MR#: [id number] Acct: [id number] Name: JOANNE STALLWORTH Rep #: [id number] : 1975 F 49 From: Adán franklin MD PCP: Dr. Rogers Bellamy MD Status: REG [facility] Study: ABD Limited w/ Elastography Date of Exam: 08/15 12/05 Exam# [id number] Ordering Dr: Marino Trotter DO [id number] STUDY: ABDOMINAL ULTRASOUND - RIGHT UPPER QUADRANT; ELASTOGRAPHY REASON FOR VISIT: Female, 49 years old. Fatty infiltration of liver. TECHNIQUE: Ultrasound evaluation of the right upper quadrant was performed with real-time and static bolden-scale imaging. Point quantification shear wave elastography was performed (Rocket [employer]). TECHNICAL QUALITY: Adequate. COMPARISON: Comparison is made with prior study dated September 02, 2023. FINDINGS: Liver: The liver is enlarged at measures 20.9 cm. There is increased echogenicity consistent with fatty infiltration. The bile ducts are within normal limits. There is hepatic color flow. The direction of portal flow is hepatopetal. There is no demonstrated mass lesion. Median liver stiffness measured 6.2 kPa. Gallbladder: Normal distended gallbladder. The gallbladder wall measures 3.0 mm. There is a negative sonographic Shaver''s sign. There is no pericholecystic fluid. There is a solitary echogenic gallstone within the gallbladder. Common Bile Duct (C.B.D.): The common bile duct measures 4.2 mm. Pancreas: There is normal echogenicity of the visualized pancreas. There is no demonstrated pancreatic mass or cyst. Right Kidney: Normal size of the right kidney. The right kidney measures 11.8 cm x 6 cm x 5.5 cm. Normal renal cortex. The right cortex measures 2.0 cm. There is a 2.2 cm x 2.3 cm by 1.2 cm right renal cyst. There is no right hydronephrosis. US/ABD Limited w/ Elastography IMPRESSION: 1. Liver stiffness measures 6.2 kPa compatible with F2-F3 (Mild to moderate liver fibrosis) Metavir score. Essentially stable examination. 2. Hepatomegaly and fatty inflammation liver. 3. Right renal cyst. Electronically Signed: Adán East MD at 13:06 EST , CC: Dr. Rogers Bellamy MD; Marino Trotter, Synthetic Resin Operator: Signed Normal [facility] AST(SGOT)on 08-27-2024 AST [Catalytic activity/Vol] 17 U/L Normal 15-37 [facility] Comment on above: Result Comment: Slig ht Hemolysis, Result may be falsely increased. Performed By: #### L 501.9985, L500.2500, L501.4100, L501.4405 ####[facility] [address] [place], [address] Alanine Aminotransferas (SGP T)on 08-27-2024 ALT [Catalytic activity/Vol] 26 U/L Normal 13-56 [facility] Comment on above: Performed By: #### L 501.9985, L500.2500, L501.4100, L501.4405 ####[facility] [address] [place], [address] Basic Metabolic Profile (BMP )on 08-27-2024 BUN/CRE 24.7 RATIO High 10-20 [facility] Comment on above: Performed By: #### L 501.9985, L500.2500, L501.4100, L501.4405 ####[facility] [address] [place], [address] CA,Total 9.6 mg/dL Normal 8.5-10.1 [facility] Comment on above: Performed By: #### L 501.9985, L500.2500, L501.4100, L501.4405 ####[facility] [address] [place], [address] Chloride [Moles/Vol] 100 mmol/L Normal 98-107 [facility] Comment on above: Performed By: #### L 501.9985, L500.2500, L501.4100, L501.4405 ####[facility] [address] [place], [address] CO2 [Moles/Vol] 30.0 mmol/L Normal 21.0-32.0 [facility] Comment on above: Performed By: #### L 501.9985, L500.2500, L501.4100, L501.4405 ####[facility] [address] [place], [address] Creatinine [Mass/Vol] 0.69 mg/dL Normal 0.55-1.02 [facility] Comment on above: Result Comment: The validity of the calculated GFR GFRAA in patients over 70 years has not been determined. Clinical correlation is essential. Performed By: #### L 501.9985, L500.2500, L501.4100, L501.4405 ####[facility] [address] [place], [address] EST GFR - AA 118 mL/min Normal >60 [facility] Comment on above: Result Comment: Afri can [employer] GFR Calc Performed By: #### L 501.9985, L500.2500, L501.4100, L501.4405 ####[facility] [address] [place], [address] GAP 8 Normal 5-15 [facility] Comment on above: Performed By: #### L 501.9985, L500.2500, L501.4100, L501.4405 ####[facility] [address] [place], [address] GFR/1.73 sq M.predicted among non-blacks MDRD (S/P/Bld) [Vol rate/Area] 97 mL/min/{1.73_m2} Normal >60 [facility] Comment on above: Result Comment: Non- GFR Calc Performed By: #### L 501.9985, L500.2500, L501.4100, L501.4405 ####[facility] [address] [place], [address] Glucose [Mass/Vol] 225 mg/dL High 74-106 [facility] Comment on above: Result Comment: Gluc ose result greater than or equal to 200 mg/dL suggests DIABETES MELLITUS per A.D.A. criteria. Performed By: #### L 501.9985, L500.2500, L501.4100, L501.4405 ####[facility] [address] [place], [address] Potassium [Moles/Vol] 4.1 mmol/L Normal 3.5-5.1 [facility] Comment on above: Result Comment: Slig ht Hemolysis, Result may be falsely increased. Performed By: #### L 501.9985, L500.2500, L501.4100, L501.4405 ####[facility] [address] [place], [address] Sodium [Moles/Vol] 138 mmol/L Normal 136-145 [facility] Comment on above: Performed By: #### L 501.9985, L500.2500, L501.4100, L501.4405 ####[facility] [address] [place], [address] Urea nitrogen [Mass/Vol] 17 mg/dL Normal 7-18 [facility] Comment on above: Performed By: #### L 501.9985, L500.2500, L501.4100, L501.4405 ####[facility] [address] [place], [address] Hemoglobin A1con 08-27-2024 HbA1c (Bld) [Mass fraction] 7.1 % High 3.8-5.6 [facility] Comment on above: Result Comment: Norm al < 5.7 % Prediabetic 5.7 - 6.4 % Diabetic >or= 6.5 % Please note range changes. Performed By: #### L 501.9985, L500.2500, L501.4100, L501.4405 ####[facility] [address] [place], [address] SCRN MAMM (CAD)W/ROMERO BILATo n 07-28-2024 SCRN MAMM (CAD)W/ROMERO BILAT [facility] Imaging Services [address] [place] [address] SCRN MAMM (CAD)W/ROMREO BILAT MR#: [id number] Acct: [id number] Name: JOANNE STALLWORTH Rep #: [id number] : 1975 F 49 From: Adán franklin MD PCP: Dr. Rogers Bellamy MD Status: PRE CLI Study: SCRN MAMM (CAD)W/ROMERO BILAT Date of Exam: 07/15 01/05 Exam# [id number] Ordering Dr: Rogers Bellamy MD [id number] MAMMOGRAPHY - BILATERAL SCREENING REASON FOR EXAM: Female, 49 years old. Routine annual screening examination. PERTINENT HISTORY: Non-contributory. TECHNIQUE: Digital bilateral breast romero (3D mammographic acquisition) in the CC and MLO projections. 2-D mediolateral oblique (MLO) and craniocaudad (CC) views of both breasts were obtained. CAD: Full Field Digital Mammography with Computer Added Detection was performed. COMPARISON: Comparison is made with prior study September 05, 2021 and May 23, 2019. FINDINGS: Breast Composition: There are scattered areas of fibroglandular density. Stable lobulated 2 cm x 1.9 cm well-defined nodule in the medial superior retroareolar region of the left breast. A tissue clip marker is seen within. No other significant abnormalities are identified. There has been no significant change since the prior study. BI/SCRN MAMM (CAD)W/ROMERO BILAT IMPRESSION: Stable bilateral screening mammogram. Yearly follow-up mammogram recommended. (A) ASSESSMENT CATEGORY: BIRADS Category 2: Benign. A letter regarding these results will be sent to the patient by the facility within 30 days. Approximately 10% of breast cancers are not detected by mammography. A normal mammogram should not delay biopsy of a clinically suspicious abnormality. [id number] Electronically Signed: Adán East MD at 7:29 EST , CC: Dr. Rogers Bellamy MD Synthetic Resin Operator: Signed Normal [facility] Urgent Care Visit Reporton 0 06-06-2024 Urgent Care Visit Report [facility] [address], [address] [place], [place] [address] OFFICE VISIT Date of Service: 06/06/24 MR#: [id number] Acct: [id number] Name: JOANNE STALLWORTH Rep #: [id number] : 1975 Provider: CHETAN Camarillo Age/Sex: 48/F Location[facility] Status: Signed Intake Vital Signs 05/25/24 16:16 06/06/24 11:56 Height 5 ft 10 in 5 ft 11 in Weight: 291 lb 290 lb BMI 41.7 40.4 BP 124/76 H 122/82 H Blood Pressure Location Lt brachial Lt brachial Position Sitting Sitting Respiration 17 16 Pulse 86 82 Pulse Source Monitor Monitor Temp 97.6 F L 98.2 F Temp Source Temporal Oral Pulse Oximetry (%) 98 98 Oxygen Delivery Method room air room air Intake Visit Reasons: ST/COUGH/LERMA/BILAT EAR PAIN/SINUS COMPLAINT Chief Complaint: ST/COUGH/LERMA/FATIGUE/NA FIDE DRAINAGE/ CONGESTION/ EAR PAIN Corporate Travel Agent Required: No Accompanied by: Self Is patient in pain?: Yes Allergies adhesive tape (paper tape) Allergy (Unknown, Verified 06/06/24 12:00) Other adhesive Allergy (Verified 06/06/24 12:00) Hives azithromycin (From Zithromax) Allergy (Verified 06/06/24 12:00) Hives diazepam (From Valium) Adverse Reaction (Verified 06/06/24 12:00) Other lisinopril Adverse Reaction (Verified 06/06/24 12:00) Other prednisone Adverse Reaction (Verified 06/06/24 12:00) Other Medications ???Medication ???Instructions ???Recorded ???Confirmed ???Type rizatriptan 10 mg disintegrating 10 mg PO PRN PRN Migraine Symptoms 07/01/16 06/06/24 History tablet biotin 1 mg capsule 1 mg PO DAILY 10/18/18 06/06/24 History cholecalciferol (vitamin D3) 25 1,000 unit PO DAILY 10/18/18 06/06/24 History mcg (1,000 unit) capsule magnesium 250 mg tablet 250 mg PO DAILY 10/18/18 06/06/24 History omega-3 fatty acids 1,000 mg 1,000 mg PO DAILY 10/18/18 06/06/24 History capsule (Fish Oil Concentrate) vitamin A palmitate 3,000 mcg 10,000 unit PO DAILY 10/18/18 06/06/24 History (10,000 unit) tablet vitamin B complex 2 ea PO DAILY 05/15/19 06/06/24 History ascorbic acid (vitamin C) 500 mg mg PO 09/03/21 06/06/24 History capsule blood sugar diagnostic (Accu-Chek #10 ea 09/03/21 06/06/24 History Guide test strips) cranberry fruit concentrate 250 mg 250 mg PO TID 09/03/21 06/06/24 History chewable tablet (Azo Cranberry) lancets (Accu-Chek Fastclix Lancet #100 ea 09/03/21 06/06/24 History Drum) metformin 1,000 mg tablet,extended 1,000 mg PO BID 3 months #180 tabs 09/03/21 06/06/24 Rx release 24hr (osmotic) vitamin E 268 mg (400 unit) capsule 800 unit PO DAILY #60 caps 11/04/21 06/06/24 Rx CoQ10 PO 1XD 03/05/22 06/06/24 History acetaminophen 650 mg 650 mg PO Q12H 07/10/22 06/06/24 History tablet,extended release (Tylenol Arthritis Pain) celecoxib 200 mg capsule (Celebrex) 200 mg PO BID 07/10/22 06/06/24 History ropinirole 0.25 mg tablet 0.25 mg PO QHS #30 tabs 09/29/22 06/06/24 Rx losartan 100 mg tablet 100 mg PO DAILY #90 tabs 09/28/23 06/06/24 Rx hydroxyzine HCl 25 mg tablet 25 mg PO BID PRN anxiety #60 tabs 11/11/23 06/06/24 Rx metoprolol tartrate 50 mg tablet 50 mg PO BID 3 months #180 TABLETS 01/20/24 06/06/24 Rx potassium chloride 20 mEq 20 meq PO DAILY #60 tabs 02/24/24 06/06/24 Rx tablet,extended release dapagliflozin propanediol 10 mg 10 mg PO QDAY 03/02/24 06/06/24 History tablet (Farxiga) glimepiride 2 mg tablet 2 mg PO QDAY 03/02/24 06/06/24 History multivitamin 1 tab PO DAILY 03/02/24 06/06/24 History hydrochlorothiazide 25 mg tablet 25 mg PO QAM #90 TABLETS 03/22/24 06/06/24 Rx ursodiol 250 mg tablet 250 mg PO DAILY #30 tabs 04/14/24 06/06/24 Rx doxepin 10 mg capsule See Rx Instructions .Route 05/18/24 06/06/24 Rx .COMPLEX #90 caps duloxetine 30 mg capsule,delayed See Rx Instructions .Route 05/18/24 06/06/24 Rx release .COMPLEX #90 caps duloxetine 60 mg capsule,delayed See Rx Instructions .Route 05/18/24 06/06/24 Rx release .COMPLEX #90 caps norethindrone (contraceptive) 0.35 See Rx Instructions .Route 05/19/24 06/06/24 Rx mg tablet .COMPLEX #84 tabs benzonatate 200 mg capsule 200 mg PO TID PRN cough #20 caps 06/06/24 06/06/24 Rx PFSH Medical History Health care maintenance Colon cancer screening Hypokalemia Insomnia Psoriasis MDD (major depressive disorder) Acute streptococcal pharyngitis Flu vaccine need Menstrual irregularity Fatty liver disease, nonalcoholic Osteoarthritis Morbid obesity ELVIS (obstructive sleep apnea) Type 2 diabetes mellitus Chronic diarrhea History of breast lump GERD (gastroesophageal reflux disease) Raynauds disease Anxiety and depression Sleep apnea History of kidney stones Pectus excavatum Chronic neck and back pain Difficulty balancing (more content not included)... Normal [facility] Internal Medicine Office Vis jose 05-25-2024 Internal Medicine Office Visit [facility] [address] [place] [address] [place] [address] OFFICE VISIT Date of Service: 05/25/24 MR#: [id number] Acct: [id number] Name: JOANNE STALLWORTH Rep #: [id number] : 1975 Provider: Dr. Rogers draper MD Age/Sex: 48/F Location: [facility] [place] Status: Signed Intake Vital Signs 03/02/24 10:05 05/18/24 16:21 05/25/24 16:16 Height 5 ft 10 in 5 ft 10 in 5 ft 10 in Weight: 291 lb BMI 41.7 BP 124/76 H Blood Pressure Location Lt brachial Position Sitting Respiration 17 Pulse 86 Pulse Source Monitor Temp 97.6 F L Temp Source Temporal Pulse Oximetry (%) 98 Oxygen Delivery Method room air Intake Visit Reasons: 3 M FU Chief Complaint: 3 M FU Is patient in pain?: No Allergies adhesive tape (paper tape) Allergy (Unknown, Verified 05/25/24 16:13) Other adhesive Allergy (Verified 05/25/24 16:13) Hives azithromycin (From Zithromax) Allergy (Verified 05/25/24 16:13) Hives diazepam (From Valium) Adverse Reaction (Verified 05/25/24 16:13) Other lisinopril Adverse Reaction (Verified 05/25/24 16:13) Other prednisone Adverse Reaction (Verified 05/25/24 16:13) Other Medications ???Medication ???Instructions ???Recorded ???Confirmed ???Type rizatriptan 10 mg disintegrating 10 mg PO PRN PRN Migraine Symptoms 07/01/16 05/25/24 History tablet biotin 1 mg capsule 1 mg PO DAILY 10/18/18 05/25/24 History cholecalciferol (vitamin D3) 25 1,000 unit PO DAILY 10/18/18 05/25/24 History mcg (1,000 unit) capsule magnesium 250 mg tablet 250 mg PO DAILY 10/18/18 05/25/24 History omega-3 fatty acids 1,000 mg 1,000 mg PO DAILY 10/18/18 05/25/24 History capsule (Fish Oil Concentrate) vitamin A palmitate 3,000 mcg 10,000 unit PO DAILY 10/18/18 05/25/24 History (10,000 unit) tablet vitamin B complex 2 ea PO DAILY 05/15/19 05/25/24 History ascorbic acid (vitamin C) 500 mg mg PO 09/03/21 05/25/24 History capsule blood sugar diagnostic (Accu-Chek #10 ea 09/03/21 05/25/24 History Guide test strips) cranberry fruit concentrate 250 mg 250 mg PO TID 09/03/21 05/25/24 History chewable tablet (Azo Cranberry) lancets (Accu-Chek Fastclix Lancet #100 ea 09/03/21 05/25/24 History Drum) metformin 1,000 mg tablet,extended 1,000 mg PO BID 3 months #180 tabs 09/03/21 05/25/24 Rx release 24hr (osmotic) vitamin E 268 mg (400 unit) capsule 800 unit PO DAILY #60 caps 11/04/21 05/25/24 Rx CoQ10 PO 1XD 03/05/22 05/25/24 History acetaminophen 650 mg 650 mg PO Q12H 07/10/22 05/25/24 History tablet,extended release (Tylenol Arthritis Pain) celecoxib 200 mg capsule (Celebrex) 200 mg PO BID 07/10/22 05/25/24 History ropinirole 0.25 mg tablet 0.25 mg PO QHS #30 tabs 09/29/22 05/25/24 Rx losartan 100 mg tablet 100 mg PO DAILY #90 tabs 09/28/23 05/25/24 Rx hydroxyzine HCl 25 mg tablet 25 mg PO BID PRN anxiety #60 tabs 11/11/23 05/25/24 Rx metoprolol tartrate 50 mg tablet 50 mg PO BID 3 months #180 TABLETS 01/20/24 05/25/24 Rx potassium chloride 20 mEq 20 meq PO DAILY #60 tabs 02/24/24 05/25/24 Rx tablet,extended release dapagliflozin propanediol 10 mg 10 mg PO QDAY 03/02/24 05/25/24 History tablet (Farxiga) glimepiride 2 mg tablet 2 mg PO QDAY 03/02/24 05/25/24 History multivitamin 1 tab PO DAILY 03/02/24 05/25/24 History hydrochlorothiazide 25 mg tablet 25 mg PO QAM #90 TABLETS 03/22/24 05/25/24 Rx ursodiol 250 mg tablet 250 mg PO DAILY #30 tabs 04/14/24 05/25/24 Rx doxepin 10 mg capsule See Rx Instructions .Route 05/18/24 05/25/24 Rx .COMPLEX #90 caps duloxetine 30 mg capsule,delayed See Rx Instructions .Route 05/18/24 05/25/24 Rx release .COMPLEX #90 caps duloxetine 60 mg capsule,delayed See Rx Instructions .Route 05/18/24 05/25/24 Rx release .COMPLEX #90 caps norethindrone (contraceptive) 0.35 See Rx Instructions .Route 05/19/24 05/25/24 Rx mg tablet .COMPLEX #84 tabs [facility] Medical History (Updated 05/25/24 @ 18:[address] Rogers Bellamy MD) Health care maintenance Colon cancer screening Hypokalemia Insomnia Psoriasis MDD (major depressive disorder) Acute streptococcal pharyngitis Flu vaccine need Menstrual irregularity Fatty liver disease, nonalcoholic Osteoarthritis Morbid obesity ELVIS (obstructive sleep apnea) Type 2 diabetes mellitus Chronic diarrhea History of breast lump GERD (gastroesophageal reflux disease) Raynauds disease Anxiety and depression Sleep apnea History of kidney stones Pectus excavatum Chronic neck and back pain Difficulty balancing Migraines Knee pain Severe headache Anemia Diabetes Shoulder pain Arthritis Hypertension Surgical History History of liver biopsy History of fusion of cervical spine History of cervical spinal surgery (more content not included)... Normal [facility] Hemoglobin A1con 05-23-2024 HbA1c (Bld) [Mass fraction] 6.5 % High 3.8-5.6 [facility] Comment on above: Order Comment: DR FR AVERY ORDERED LIVER, CBCD,DR SCHMIDT ORDERED BMP, A1C, ALT, AST, MIACRE URINE Result Comment: Norm al < 5.7 % Prediabetic 5.7 - 6.4 % Diabetic >or= 6.5 % Please note range changes. Performed By: #### L 501.9985, L500.3400, L502.0250, L100.0100, L500.2500 ####[facility] [address] [place], [place], [id number] Basic Metabolic Profile (BMP )on 05-21-2024 BUN/CRE 26.3 RATIO High 10-20 [facility] Comment on above: Order Comment: DR FR AVERY ORDERED LIVER, CBCD,DR SCHMIDT ORDERED BMP, A1C, ALT, AST, MIACRE URINE Performed By: #### L 501.9985, L500.3400, L502.0250, L100.0100, L500.2500 ####[facility] [address] [place], [address] CA,Total 9.4 mg/dL Normal 8.5-10.1 [facility] Comment on above: Order Comment: DR FR AVERY ORDERED LIVER, CBCD,DR SCHMIDT ORDERED BMP, A1C, ALT, AST, MIACRE URINE Performed By: #### L 501.9985, L500.3400, L502.0250, L100.0100, L500.2500 ####[facility] [address] [place], [address] Chloride [Moles/Vol] 101 mmol/L Normal 98-107 [facility] Comment on above: Order Comment: DR FR AVERY ORDERED LIVER, CBCD,DR SCHMIDT ORDERED BMP, A1C, ALT, AST, MIACRE URINE Performed By: #### L 501.9985, L500.3400, L502.0250, L100.0100, L500.2500 ####[facility] [address] [place], [address] CO2 [Moles/Vol] 28.0 mmol/L Normal 21.0-32.0 [facility] Comment on above: Order Comment: DR FR AVERY ORDERED LIVER, CBCD,DR SCHMIDT ORDERED BMP, A1C, ALT, AST, MIACRE URINE Performed By: #### L 501.9985, L500.3400, L502.0250, L100.0100, L500.2500 ####[facility] [address] [place], [address] Creatinine [Mass/Vol] 0.76 mg/dL Normal 0.55-1.02 [facility] Comment on above: Order Comment: DR FR AVERY ORDERED LIVER, CBCD,DR SCHMIDT ORDERED BMP, A1C, ALT, AST, MIACRE URINE Result Comment: The validity of the calculated GFR GFRAA in patients over 70 years has not been determined. Clinical correlation is essential. Performed By: #### L 501.9985, L500.3400, L502.0250, L100.0100, L500.2500 ####[facility] [address] [place], [address] EST GFR - AA 105 mL/min Normal >60 [facility] Comment on above: Order Comment: DR FR AVERY ORDERED LIVER, CBCD,DR SCHMIDT ORDERED BMP, A1C, ALT, AST, MIACRE URINE Result Comment: Afri can Macanese GFR Calc Performed By: #### L 501.9985, L500.3400, L502.0250, L100.0100, L500.2500 ####[facility] [address] [place], [address] GAP 7 Normal 5-15 [facility] Comment on above: Order Comment: DR FR AVERY ORDERED LIVER, CBCD,DR SCHMIDT ORDERED BMP, A1C, ALT, AST, MIACRE URINE Performed By: #### L 501.9985, L500.3400, L502.0250, L100.0100, L500.2500 ####[facility] [address] [place], [place], [id number] GFR/1.73 sq M.predicted among non-blacks MDRD (S/P/Bld) [Vol rate/Area] 87 mL/min/{1.73_m2} Normal >60 [facility] Comment on above: Order Comment: DR FR AVERY ORDERED LIVER, CBCD,DR SCHMIDT ORDERED BMP, A1C, ALT, AST, MIACRE URINE Result Comment: Non- GFR Calc Performed By: #### L 501.9985, L500.3400, L502.0250, L100.0100, L500.2500 ####[facility] [address] [place], [address] Glucose [Mass/Vol] 217 mg/dL High 74-106 [facility] Comment on above: Order Comment: DR FR AVERY ORDERED LIVER, CBCD,DR SCHMIDT ORDERED BMP, A1C, ALT, AST, MIACRE URINE Result Comment: Gluc ose result greater than or equal to 200 mg/dL suggests DIABETES MELLITUS per A.D.A. criteria. Performed By: #### L 501.9985, L500.3400, L502.0250, L100.0100, L500.2500 ####[facility] [address] [place], [address] Potassium [Moles/Vol] 3.4 mmol/L Low 3.5-5.1 [facility] Comment on above: Order Comment: DR FR AVERY ORDERED LIVER, CBCD,DR SCHMIDT ORDERED BMP, A1C, ALT, AST, MIACRE URINE Performed By: #### L 501.9985, L500.3400, L502.0250, L100.0100, L500.2500 ####[facility] [address] [place], [address] Sodium [Moles/Vol] 136 mmol/L Normal 136-145 [facility] Comment on above: Order Comment: DR FR AVERY ORDERED LIVER, CBCD,DR SCHMIDT ORDERED BMP, A1C, ALT, AST, MIACRE URINE Performed By: #### L 501.9985, L500.3400, L502.0250, L100.0100, L500.2500 ####[facility] [address] [place], [address] Urea nitrogen [Mass/Vol] 20 mg/dL High 7-18 [facility] Comment on above: Order Comment: DR FR AVERY ORDERED LIVER, CBCD,DR SCHMIDT ORDERED BMP, A1C, ALT, AST, MIACRE URINE Performed By: #### L 501.9985, L500.3400, L502.0250, L100.0100, L500.2500 ####[facility] [address] [place], [address] CBC W/Diff, Automatedon 09-0 7-2024 Absolute Lymph 2.37 X10 3/uL Normal 0.83-4.51 [facility] Comment on above: Order Comment: DR FR AVERY ORDERED LIVER, CBCD,DR SCHMIDT ORDERED BMP, A1C, ALT, AST, MIACRE URINE Performed By: #### L 501.9985, L500.3400, L502.0250, L100.0100, L500.2500 ####[facility] [address] [place], [address] Absolute Neut 5.9 X10 3/uL Normal 2.0-7.7 [facility] Comment on above: Order Comment: DR FR AVERY ORDERED LIVER, CBCD,DR SCHMIDT ORDERED BMP, A1C, ALT, AST, MIACRE URINE Performed By: #### L 501.9985, L500.3400, L502.0250, L100.0100, L500.2500 ####[facility] [address] [place], [address] Basophils/100 WBC (Bld) 0.5 % Normal 0-1 [facility] Comment on above: Order Comment: DR FR AVERY ORDERED LIVER, CBCD,DR SCHMIDT ORDERED BMP, A1C, ALT, AST, MIACRE URINE Performed By: #### L 501.9985, L500.3400, L502.0250, L100.0100, L500.2500 ####[facility] [address] [place], [address] Eosinophils/100 WBC (Bld) 0.8 % Normal 0-5 [facility] Comment on above: Order Comment: DR FR AVERY ORDERED LIVER, CBCD,DR SCHMIDT ORDERED BMP, A1C, ALT, AST, MIACRE URINE Performed By: #### L 501.9985, L500.3400, L502.0250, L100.0100, L500.2500 ####[facility] [address] [place], [place], [phone] Erythrocyte distribution width (RBC) [Ratio] 11.6 % Normal 11.6-14.6 [facility] Comment on above: Order Comment: DR FR AVERY ORDERED LIVER, CBCD,DR SCHMIDT ORDERED BMP, A1C, ALT, AST, MIACRE URINE Performed By: #### L 501.9985, L500.3400, L502.0250, L100.0100, L500.2500 ####[facility] [address] [place], [address] Hematocrit (Bld) [Volume fraction] 46.1 % Normal 37-47 [facility] Comment on above: Order Comment: DR FR AVERY ORDERED LIVER, CBCD,DR SCHMIDT ORDERED BMP, A1C, ALT, AST, MIACRE URINE Performed By: #### L 501.9985, L500.3400, L502.0250, L100.0100, L500.2500 ####[facility] [address] [place], [place], [phone] Hemoglobin (Bld) [Mass/Vol] 15.2 g/dL High 12.0-15.0 [facility] Comment on above: Order Comment: DR FR AVERY ORDERED LIVER, CBCD,DR SCHMIDT ORDERED BMP, A1C, ALT, AST, MIACRE URINE Performed By: #### L 501.9985, L500.3400, L502.0250, L100.0100, L500.2500 ####[facility] [address] [place], [place], [phone] IG% 0.900 Normal 0.0-0.9 [facility] Comment on above: Order Comment: DR FR AVERY ORDERED LIVER, CBCD,DR SCHMIDT ORDERED BMP, A1C, ALT, AST, MIACRE URINE Result Comment: IG% - Immature Granulocytes (promyelocytes, myelocytes and metamyelocytes) > 1% indicates that a LEFT SHIFT is Present. Performed By: #### L 501.9985, L500.3400, L502.0250, L100.0100, L500.2500 ####[facility] [address] [facility] [place], [address] Lymphocytes/100 WBC (Bld) 25.9 % Normal 19-41 [facility] Comment on above: Order Comment: DR FR AVERY ORDERED LIVER, CBCD,DR SCHMIDT ORDERED BMP, A1C, ALT, AST, MIACRE URINE Performed By: #### L 501.9985, L500.3400, L502.0250, L100.0100, L500.2500 ####[facility] [address] [place], [address] MCH (RBC) [Entitic mass] 31.2 pg Normal 27.0-32.0 [facility] Comment on above: Order Comment: DR FR AVERY ORDERED LIVER, CBCD,DR SCHMIDT ORDERED BMP, A1C, ALT, AST, MIACRE URINE Performed By: #### L 501.9985, L500.3400, L502.0250, L100.0100, L500.2500 ####[facility] [address] [facility] [place], [address] MCHC (RBC) [Mass/Vol] 33.0 g/dL Normal 32-36 [facility] Comment on above: Order Comment: DR FR AVERY ORDERED LIVER, CBCD,DR SCHMIDT ORDERED BMP, A1C, ALT, AST, MIACRE URINE Performed By: #### L 501.9985, L500.3400, L502.0250, L100.0100, L500.2500 ####[facility] [address] [place], [address] MCV (RBC) [Entitic vol] 94.7 fL Normal 81-99 [facility] Comment on above: Order Comment: DR FR AVERY ORDERED LIVER, CBCD,DR SCHMIDT ORDERED BMP, A1C, ALT, AST, MIACRE URINE Performed By: #### L 501.9985, L500.3400, L502.0250, L100.0100, L500.2500 ####[facility] [address] [facility] [place], [address] Monocytes/100 WBC (Bld) 7.2 % Normal 0-10 [facility] Comment on above: Order Comment: DR FR AVERY ORDERED LIVER, CBCD,DR SCHMIDT ORDERED BMP, A1C, ALT, AST, MIACRE URINE Performed By: #### L 501.9985, L500.3400, L502.0250, L100.0100, L500.2500 ####[facility] [address] [place], [address] Neutrophils/100 WBC (Bld) 64.7 % Normal 47-70 [facility] Comment on above: Order Comment: DR FR AVERY ORDERED LIVER, CBCD,DR SCHMIDT ORDERED BMP, A1C, ALT, AST, MIACRE URINE Performed By: #### L 501.9985, L500.3400, L502.0250, L100.0100, L500.2500 ####[facility] [address] [place], [address] Nucleated RBC (Bld) [#/Vol] 0 10*3/uL Normal 0-5 [facility] Comment on above: Order Comment: DR FR AVERY ORDERED LIVER, CBCD,DR SCHMIDT ORDERED BMP, A1C, ALT, AST, MIACRE URINE Performed By: #### L 501.9985, L500.3400, L502.0250, L100.0100, L500.2500 ####[facility] [address] [place], [address] Platelet mean volume (Bld) [Entitic vol] 9.2 fL Normal 6.2-12.0 [facility] Comment on above: Order Comment: DR FR AVERY ORDERED LIVER, CBCD,DR SCHMIDT ORDERED BMP, A1C, ALT, AST, MIACRE URINE Performed By: #### L 501.9985, L500.3400, L502.0250, L100.0100, L500.2500 ####[facility] [address] [place], [address] Platelets (Bld) [#/Vol] 375 10*3/uL Normal 150-450 [facility] Comment on above: Order Comment: DR FR AVERY ORDERED LIVER, CBCD,DR SCHMIDT ORDERED BMP, A1C, ALT, AST, MIACRE URINE Performed By: #### L 501.9985, L500.3400, L502.0250, L100.0100, L500.2500 ####[facility] [address] [place], [address] RBC (Bld) [#/Vol] 4.87 10*6/uL Normal 4.2-5.4 [facility] Comment on above: Order Comment: DR FR AVERY ORDERED LIVER, CBCD,DR SCHMIDT ORDERED BMP, A1C, ALT, AST, MIACRE URINE Performed By: #### L 501.9985, L500.3400, L502.0250, L100.0100, L500.2500 ####[facility] [address] [place], [address] RDW SD 40.0 fl Normal 35.1-43.9 [facility] Comment on above: Order Comment: DR FR AVERY ORDERED LIVER, CBCD,DR SCHMIDT ORDERED BMP, A1C, ALT, AST, MIACRE URINE Performed By: #### L 501.9985, L500.3400, L502.0250, L100.0100, L500.2500 ####[facility] [address] [place], [address] WBC (Bld) [#/Vol] 9.2 10*3/uL Normal 4.4-11.0 [facility] Comment on above: Order Comment: DR FR AVERY ORDERED LIVER, CBCD,DR SCHMIDT ORDERED BMP, A1C, ALT, AST, MIACRE URINE Performed By: #### L 501.9985, L500.3400, L502.0250, L100.0100, L500.2500 ####[facility] [address] [place], [address] Liver Profileon 05-21-2024 Albumin [Mass/Vol] 3.8 g/dL Normal 3.2-5.0 [facility] Comment on above: Order Comment: DR FR AVERY ORDERED LIVER, CBCD,DR SCHMIDT ORDERED BMP, A1C, ALT, AST, MIACRE URINE Performed By: #### L 501.9985, L500.3400, L502.0250, L100.0100, L500.2500 ####[facility] [address] [place], [address] ALK P 72 U/L Normal 45-117 [facility] Comment on above: Order Comment: DR FR AVERY ORDERED LIVER, CBCD,DR SCHMIDT ORDERED BMP, A1C, ALT, AST, MIACRE URINE Performed By: #### L 501.9985, L500.3400, L502.0250, L100.0100, L500.2500 ####[facility] [address] [place], [address] ALT [Catalytic activity/Vol] 25 U/L Normal 13-56 [facility] Comment on above: Order Comment: DR FR AVERY ORDERED LIVER, CBCD,DR SCHMIDT ORDERED BMP, A1C, ALT, AST, MIACRE URINE Performed By: #### L 501.9985, L500.3400, L502.0250, L100.0100, L500.2500 ####[facility] [address] [place], [address] AST [Catalytic activity/Vol] 18 U/L Normal 15-37 [facility] Comment on above: Order Comment: DR FR AVERY ORDERED LIVER, CBCD,DR SCHMIDT ORDERED BMP, A1C, ALT, AST, MIACRE URINE Performed By: #### L 501.9985, L500.3400, L502.0250, L100.0100, L500.2500 ####[facility] [address] [place], [address] Bilirubin [Mass/Vol] 0.20 mg/dL Normal 0.20-1.00 [facility] Comment on above: Order Comment: DR FR AVERY ORDERED LIVER, CBCD,DR SCHMIDT ORDERED BMP, A1C, ALT, AST, MIACRE URINE Result Comment: For patients on eltrombopag therapy, use of Dimension [place] TBIL is not recommended. Performed By: #### L 501.9985, L500.3400, L502.0250, L100.0100, L500.2500 ####[facility] [address] [place], [address] Bilirubin.direct [Mass/Vol] 0.12 mg/dL Normal 0.00-0.30 [facility] Comment on above: Order Comment: DR FR AVERY ORDERED LIVER, CBCD,DR SCHMIDT ORDERED BMP, A1C, ALT, AST, MIACRE URINE Performed By: #### L 501.9985, L500.3400, L502.0250, L100.0100, L500.2500 ####[facility] [address] [place], [address] Globulin (S) [Mass/Vol] 4.0 g/dL Normal 2.2-4.2 [facility] Comment on above: Order Comment: DR FR AVERY ORDERED LIVER, CBCD,DR SCHMIDT ORDERED BMP, A1C, ALT, AST, MIACRE URINE Performed By: #### L 501.9985, L500.3400, L502.0250, L100.0100, L500.2500 ####[facility] [address] [place], [address] T PROT 7.8 g/dL Normal 6.4-8.2 [facility] Comment on above: Order Comment: DR FR AVERY ORDERED LIVER, CBCD,DR SCHMIDT ORDERED BMP, A1C, ALT, AST, MIACRE URINE Performed By: #### L 501.9985, L500.3400, L502.0250, L100.0100, L500.2500 ####[facility] [address] [place], [address] Microalb:Creat Ratio,Random URon 05-21-2024 Creatinine [Mass/Vol] 20.70 mg/dL Normal NO RAN GE EST. [facility] Comment on above: Order Comment: DR FR AVERY ORDERED LIVER, CBCD,DR SCHMIDT ORDERED BMP, A1C, ALT, AST, MIACRE URINE Performed By: #### L 501.9985, L500.3400, L502.0250, L100.0100, L500.2500 ####[facility] [address] [place], [place], [id number] MALB:CRE TNP Normal <30 mg/g CRE [facility] Comment on above: Order Comment: DR FR AVERY ORDERED LIVER, CBCD,DR SCHMIDT ORDERED BMP, A1C, ALT, AST, MIACRE URINE Performed By: #### L 501.9985, L500.3400, L502.0250, L100.0100, L500.2500 ####[facility] [address] [place], [place], [id number] MICROALBUMIN,UR < 5.0 Normal NO RANGE EST. [facility] Comment on above: Order Comment: DR FR AVERY ORDERED LIVER, CBCD,DR SCHMIDT ORDERED BMP, A1C, ALT, AST, MIACRE URINE Performed By: #### L 501.9985, L500.3400, L502.0250, L100.0100, L500.2500 ####[facility] [address] [place], [place], [id number] MR/BMS.BPon 05-18-2024 MR/BMS.BP [address], [address] [place], [place] [address] OFFICE VISIT Date of Service: 05/18/24 MR#: [id number] Acct: [id number] Name: JOANNE STALLWORTH Rep #: [id number] : 1975 Provider: Dr. Maciel Shabazz se, DO Age/Sex: 48/F Location[place] [facility] [place] Status: Signed Intake Vital Signs 02/17/24 12:58 03/02/24 10:05 05/18/24 16:20 05/18/24 16:21 Height 5 ft 10 in 5 ft 10 in 5 ft 10 in 5 ft 10 in Weight: 277 lb 6 oz BMI 39.8 BP 118/78 113/74 Blood Pressure Location Lt brachial Rt brachial Position Sitting Sitting Respiration 16 Pulse 69 77 Pulse Source Monitor Monitor Temp 97.9 F Pulse Oximetry (%) 98 100 Oxygen Delivery Method room air room air BP Intake Visit Reasons: 3 M FU Accompanied by: Self Is patient in pain?: No Allergies adhesive tape (paper tape) Allergy (Unknown, Verified 05/18/24 16:17) Other adhesive Allergy (Verified 05/18/24 16:17) Hives azithromycin (From Zithromax) Allergy (Verified 05/18/24 16:17) Hives diazepam (From Valium) Adverse Reaction (Verified 05/18/24 16:17) Other lisinopril Adverse Reaction (Verified 05/18/24 16:17) Other prednisone Adverse Reaction (Verified 05/18/24 16:17) Other Medications ???Medication ???Instructions ???Recorded ???Confirmed ???Type rizatriptan 10 mg disintegrating 10 mg PO PRN PRN Migraine Symptoms 07/01/16 05/18/24 History tablet biotin 1 mg capsule 1 mg PO DAILY 10/18/18 05/18/24 History cholecalciferol (vitamin D3) 25 1,000 unit PO DAILY 10/18/18 05/18/24 History mcg (1,000 unit) capsule magnesium 250 mg tablet 250 mg PO DAILY 10/18/18 05/18/24 History omega-3 fatty acids 1,000 mg 1,000 mg PO DAILY 10/18/18 05/18/24 History capsule (Fish Oil Concentrate) vitamin A palmitate 3,000 mcg 10,000 unit PO DAILY 10/18/18 05/18/24 History (10,000 unit) tablet vitamin B complex 2 ea PO DAILY 05/15/19 05/18/24 History ascorbic acid (vitamin C) 500 mg mg PO 09/03/21 05/18/24 History capsule blood sugar diagnostic (Accu-Chek #10 ea 09/03/21 03/23/24 History Guide test strips) cranberry fruit concentrate 250 mg 250 mg PO TID 09/03/21 05/18/24 History chewable tablet (Azo Cranberry) lancets (Accu-Chek Fastclix Lancet #100 ea 09/03/21 03/23/24 History Drum) metformin 1,000 mg tablet,extended 1,000 mg PO BID 3 months #180 tabs 09/03/21 05/18/24 Rx release 24hr (osmotic) vitamin E 268 mg (400 unit) capsule 800 unit PO DAILY #60 caps 11/04/21 05/18/24 Rx CoQ10 PO 1XD 03/05/22 05/18/24 History acetaminophen 650 mg 650 mg PO Q12H 07/10/22 03/23/24 History tablet,extended release (Tylenol Arthritis Pain) celecoxib 200 mg capsule (Celebrex) 200 mg PO BID 07/10/22 05/18/24 History ropinirole 0.25 mg tablet 0.25 mg PO QHS #30 tabs 09/29/22 05/18/24 Rx norethindrone (contraceptive) 0.35 See Rx Instructions .Route 09/15/23 05/18/24 Rx mg tablet .COMPLEX #84 tabs losartan 100 mg tablet 100 mg PO DAILY #90 tabs 09/28/23 05/18/24 Rx hydroxyzine HCl 25 mg tablet 25 mg PO BID PRN anxiety #60 tabs 11/11/23 05/18/24 Rx metoprolol tartrate 50 mg tablet 50 mg PO BID 3 months #180 TABLETS 01/20/24 05/18/24 Rx potassium chloride 20 mEq 20 meq PO DAILY #60 tabs 02/24/24 05/18/24 Rx tablet,extended release dapagliflozin propanediol 10 mg 10 mg PO QDAY 03/02/24 05/18/24 History tablet (Farxiga) glimepiride 2 mg tablet 2 mg PO QDAY 03/02/24 05/18/24 History multivitamin 1 tab PO DAILY 03/02/24 05/18/24 History hydrochlorothiazide 25 mg tablet 25 mg PO QAM #90 TABLETS 03/22/24 05/18/24 Rx ursodiol 250 mg tablet 250 mg PO DAILY #30 tabs 04/14/24 05/18/24 Rx doxepin 10 mg capsule See Rx Instructions .Route 05/18/24 05/18/24 Rx .COMPLEX #90 caps duloxetine 30 mg capsule,delayed See Rx Instructions .Route 05/18/24 05/18/24 Rx release .COMPLEX #90 caps duloxetine 60 mg capsule,delayed See Rx Instructions .Route 05/18/24 05/18/24 Rx release .COMPLEX #90 caps [facility] Medical History Hypokalemia Insomnia Psoriasis MDD (major depressive disorder) Acute streptococcal pharyngitis Flu vaccine need Menstrual irregularity Fatty liver disease, nonalcoholic Osteoarthritis Morbid obesity ELVIS (obstructive sleep apnea) Type 2 diabetes mellitus Chronic diarrhea History of breast lump GERD (gastroesophageal reflux disease) Raynauds disease Anxiety and depression Sleep apnea History of kidney stones Pectus excavatum Chronic neck and back pain Difficulty balancing Migraines Knee pain Severe headache Anemia Diabetes Shoulder pain Arthritis Hypertension Surgical History History of liver biopsy History of fusion of cervical spine History of cervical spinal surgery (more content not included)... 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 This neuropsychological assessment is part of a multidisciplinary evaluation conducted in the [facility]. The assessment consisted of a brief interview with the patient and collateral (when available), neurobehavioral examination, and standardized neuropsychological assessment.Given the targeted nature of the referral, details of the patient's history, which are already known to the referral source, are only briefly summarized. Please see patient medical records for more detailed information. RELEVANT BACKGROUND: Ms. Joanne Stallworth is a 47 year old, White female [...] bed due to fatigue) for 3+ days. SOCIAL/ACADEMIC/OCCUPA TIONAL BACKGROUND: Development: No complications or developmental delays Educational History: 18 years, Denied early attention problems or learning difficulties. 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 She reports stress related to management [...] word reading performance and demographic variables, Ms. Stallworth's premorbid intellectual abilities are estimated to be in the average range. Attention/Processing Speed: Auditory attention span was high average. Performance on a measure of visuomotor processing speed and sequencing was high average. Processing speed on a digit-symbol certified nurse aide task was average. Speeded color naming was average, and speeded word reading was average. Performance on a sustained attention task showed poor vigilance and inattentiveness. Executive functioning: Mental flexibility and visuomotor set shifting was high average. Verbal response inhibition was extremely low, and the same task with a set switching component was average. Qualitatively, the machine buffer observed the patient to slow down on the first task due to perceived level of difficulty. Language: Confrontation naming was intact. Lexical verbal fluency was high average. Semantic verbal fluency was average. Learning and Memory: Word list recall was average. Following a delay, word recall was average, and recognition of the words was within normal limits. Learning of ge (more content not included)... Normal [facility] JOANNE STALLWORTH ([id number]) 1975 F Date Time Provider Department 02/16/23 SADIE VEGA During your visit today, we recorded the following information about you: Roxanne Montanez 02/16/2023 8:33 AM Signed Lvm for patient to call so we can get her scheduled for a report visit with Dr Vega Allergies As of Date: 02/16/2023 Noted Allergy Reaction LISINOPRIL 02/12/2009 PREDNISONE 12/19/2011 14 - Other: See Comments VALIUM (DIAZEPAM) 12/19/2011 14 - Other: See Comments ZITHROMAX (AZITHROMYCIN) 04/20/2006 Date Reviewed: 02/13/2023 Reviewed by: Almita Mazariegos - Fully Assessed Reason for Visit: Appointment [186] Cmt: [facility] for patient to call so we can get her scheduled for a report visit with Dr Vega Prescriptions as of 02/16/2023 - ZINC ORAL Take by mouth. - cranberry fruit concentrate (AZO CRANBERRY ORAL) Take by mouth. - doxepin capsule 10 mg Take 10 mg by mouth at bedtime as needed. - celecoxib (CELEBREX) 200 mg capsule TAKE 1 CAPSULE BY MOUTH TWICE A DAY NEEDED FOR 30 DAYS - JARDIANCE 10 mg tablet - rOPINIRole (REQUIP) 0.25 mg tablet TAKE ONE TABLET BY MOUTH 1 TO 3 HOURS BEFORE BEDTIME - ubrogepant (UBRELVY) 100 mg tablet Take 1 tab at migraine onset. May repeat once in 2 hours as needed. - ursodiol (ACTIGALL) 300 mg capsule Take 1 capsule by mouth once daily. - rizatriptan (MAXALT) 10 mg tablet 1 tab at earliest sign of migraine. May repeat once in 2 hours if needed. - mirtazapine (REMERON) 15 mg tablet Take 15 mg by mouth daily at bedtime. - metFORMIN (GLUCOPHAGE) 500 mg tablet Take 500 mg by mouth twice daily. 2 tabs twice daily - Norethindrone, Contraceptive, (ORTHO MICRONOR) 0.35 mg tablet Take 1 tablet by mouth once daily. - DULoxetine (CYMBALTA) 30 mg capsule Take 30 mg by mouth at bedtime as needed. - Cholecalciferol, Vitamin D3, 25 mcg (1,000 unit) cap Take 1,000 Units by mouth once daily. - Coenzyme Q10 200 mg cap Take by mouth once daily. - metoprolol tartrate, short acting, (LOPRESSOR) 25 mg tablet Take 25 mg by mouth twice daily. - Ibuprofen 200 mg cap Take by mouth. - losartan (COZAAR) 50 mg tablet Take 50 mg by mouth once daily. - Magnesium 250 mg ORAL Tab Take 250 mg by mouth. - VITAMIN A ORAL Take by mouth. - duloxetine hcl(CYMBALTA 60 MG CAP) Take one(1) capsule daily. - HYDROCHLOROTHIAZIDE 25 MG TAB Take one(1) tablet daily. Problem List As Of Date 02/16/2023 Noted Resolved Unspecified essential hypertension [I10] 03/09/2012 Migraine, unspecified, without mention of intra*03/09/2012 Menorrhagia [N92.0] 03/10/2013 History of kidney stones [Z87.442] 03/10/2013 ELVIS (obstructive sleep apnea) [G47.33] 08/14/2013 Migraine without aura [G43.009] 01/16/2014 04/11/2015 Migraine with aura, without mention of intracta*04/11/2015 Abdominal migraine, not intractable [G43.D0] 07/12/2021 Migraine without aura and without status migrai*07/12/2021 Migraine with aura and without status migrainos*07/12/2021 Chronic tension-type headache, intractable [G44*01/14/2022 Chronic daily headache [R51.9] 01/14/2022 Migraine aura without headache [G43.109] 08/20/2022 Encounter Status:Closed by ROXANNE MONTANEZ on 02/16/23 [facility] CNOVon 02-13-2023 CNOV Office Visit (MOONT ) BASIMJOANNE CHEUNG ([id number]) 1975 F Date Time Provider Department 02/13/23 1:30 PM SADIE VEGA During your visit today, we recorded the following information about you: Pulse Blood pressure Weight 77/minute 126/71 131.1 kg Sadie Vega MD 02/13/2023 5:22 PM Signed NEUROLOGY CONSULTATION, [facility] REASON FOR CONSULTATION: Cognitive concerns Consultation requested by Froilan Brown for an opinion regarding Joanne Kim Basim. My final recommendations will be communicated back to the requesting physician by way of shared Medical record or letter to requesting physician via US mail. HISTORY OF PRESENT ILLNESS Joanne Stallworth is a 47 year old right handed female with 18 years of formal education, whom we are asked to see for evaluation of cognitive concerns. History was provided by patient and her mother. Additional reports including outside records, imagings were reviewed. 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 No If you received help, co (more content not included)... Normal [facility] Vit B12 SerPl-mCncon 023 Cobalamin (Vitamin B12) [Mass/Vol] 340 pg/mL Normal 232-1245 [facility] Comment on above: Order Comment: Speci men Type: BLOOD SPECIMEN Ordering Facility: [facility] Address: [address] [place] [id number] Performed By: #### 2 132-9 #### [facility] CLIA [id number] [id number] [place] MRI BRAIN WO IVCONon 022 [facility] Absolute lymphocyte counton 06-30-2022 Lymphocytes Auto (Unsp spec) [#/Vol] 2.70 10*3/uL 0.83-4.51 [facility] Work Phone: Basophil percentageon 2021 Basophils/100 WBC (Bld) 0.4 % 0-1 [facility] Work Phone: Bilirubin [Mass/Vol] 0.30 mg/dL 0.20-1.00 [facility] Work Phone: Comment on above: For patients on eltr ombopag therapy, use of Dimension [place] TBIL is not recommended. Eosinophils/100 WBC (Bld) 0.7 % 0-5 [facility] Work Phone: Neutrophils (Bld) [#/Vol] 6.2 10*3/uL 2.0-7.7 [facility] Work Phone: Neutrophils/100 WBC (Bld) 64.2 % 47-70 [facility] Work Phone: Protein [Mass/Vol] 7.7 g/dL 6.4-8.2 [facility] Work Phone: WBC (Bld) [#/Vol] 9.7 10*3/uL 4.4-11.0 [facility] Work Phone: Blood erythrocytes count (nu mber/volume)on 06-30-2022 RBC (Bld) [#/Vol] 4.87 10*6/uL 4.2-5.4 [facility] Work Phone: Blood hemoglobin measurement (mass/volume)on 06-30-2022 Hemoglobin (Bld) [Mass/Vol] 15.1 g/dL 12.0-15.0 [facility] Work Phone: Blood lymphocytes/100 leukoc yteson 06-30-2022 Lymphocytes/100 WBC (Bld) 27.9 % 19-41 [facility] Work Phone: Blood monocytes/100 leukocyt eson 06-30-2022 Monocytes/100 WBC (Bld) 5.9 % 0-10 [facility] Work Phone: Blood platelet mean volumeon 06-30-2022 Platelet mean volume (Bld) [Entitic vol] 10.0 fL 6.2-12.0 [facility] Work Phone: Determination of erythrocyte mean corpuscular volume (MCV)on 06-30-2022 MCV (RBC) [Entitic vol] 92.0 fL 81-99 [facility] Work Phone: Direct bilirubinon Bilirubin.direct [Mass/Vol] 0.07 mg/dL 0.00-0.30 [facility] Work Phone: [phone] Hematocrit Auto (Bld) [Volum e fraction]on 06-30-2022 Hematocrit (Bld) [Volume fraction] 44.8 % 37-47 [facility] Work Phone: Laboratory - Chemistry and C hemistry - challengeon 06-30-2022 ALP [Catalytic activity/Vol] 79 U/L 45-117 [facility] Work Phone: ALT [Catalytic activity/Vol] 20 U/L 13-56 [facility] Work Phone: [phone] Globulin (S) [Mass/Vol] 4.0 g/dL 2.2-4.2 [facility] Work Phone: Laboratory - Hematology and Cell countson 06-30-2022 Erythrocyte distribution width (RBC) [Entitic vol] 39.8 fL 35.1-43.9 [facility] Work Phone: [phone] Erythrocyte distribution width (RBC) [Ratio] 11.9 % 11.6-14.6 [facility] Work Phone: Immature granulocytes/100 WBC (Bld) 0.900 % 0.0-0.9 [facility] Work Phone: Comment on above: IG% - Immature Granu locytes (promyelocytes, myelocytes and metamyelocytes) > 1% indicates that a LEFT SHIFT is Present. MCH (RBC) [Entitic mass] 31.0 pg 27.0-32.0 [facility] Work Phone: Nucleated RBC/100 WBC (Bld) [Ratio] 0 % 0-5 [facility] Work Phone: MCHC Auto (RBC) [Mass/Vol]on 06-30-2022 MCHC (RBC) [Mass/Vol] 33.7 g/dL 32-36 [facility] Work Phone: No Panel Informationon 06-30 Estimated GFR (MDRD) Amer 130 mL/min >60 [facility] Work Phone: Comment on above: GFR Calc Estimated GFR (MDRD) Non-Af Amer 107 mL/min >60 [facility] Work Phone: Comment on above: Non- GFR Calc Platelets bldon 06-30-2022 Platelets (Bld) [#/Vol] 387 10*3/uL 150-450 [facility] Work Phone: Serum or plasma albumin hilton urement (mass/volume)on 06-30-2022 Albumin [Mass/Vol] 3.7 g/dL 3.2-5.0 [facility] Work Phone: Serum or plasma creatinine m easurement (mass/volume)on 06-30-2022 Creatinine [Mass/Vol] 0.64 mg/dL 0.55-1.02 [facility] Work Phone: Comment on above: The validity of the calculated GFR & GFRAA in patients over 70 years has not been determined. Clinical correlation is essential. Thin prep Papanicolaou smear with manual screeningon 06-30-2022 Thin prep Papanicolaou smear with manual screening 10 U/L 15-37 [facility] Work Phone: Basophil percentageon 2021 Chloride [Moles/Vol] 101 mmol/L 98-107 [facility] Work Phone: [phone] Cholesterol [Mass/Vol] 157 mg/dL <200 [facility] Work Phone: [phone] Comment on above: <200 mg/dL Desirable 200-240 mg/dL Borderline >240 mg/dL High Risk Glucose [Mass/Vol] 161 mg/dL 74-106 [facility] Work Phone: Comment on above: Fasting Glucose resu lt greater than or equal to 126 mg/dL suggests DIABETES MELLITUS per A.D.A. criteria. Potassium [Moles/Vol] 3.6 mmol/L 3.5-5.1 [facility] Work Phone: [phone] Sodium [Moles/Vol] 138 mmol/L 136-145 [facility] Work Phone: [phone] Triglyceride [Mass/Vol] 261 mg/dL <199 [facility] Work Phone: [phone] Comment on above: The drugs N-Acetylcy steine and Metamizole may falsely depress this assay.Serum Triglycerides Reference Interval Normal <150 mg/dL Borderline high 150 - 199 mg/dL High 200 - 499 mg/dL Very High > or = 500 mg/dL Laboratory - Chemistry and C hemistry - challengeon 05-03-2022 ALT [Catalytic activity/Vol] 21 U/L 13-56 [facility] Work Phone: [phone] CO2 [Moles/Vol] 29.0 mmol/L 21.0-32.0 [facility] Work Phone: [phone] Urea nitrogen/Creatinine [Mass ratio] 17.6 mg/mg 10-20 [facility] Work Phone: [phone] No Panel Informationon 05-03 Estimated GFR (MDRD) Amer 148 mL/min >60 [facility] Work Phone: [phone] Comment on above: GFR Calc Estimated GFR (MDRD) Non-Af Amer 123 mL/min >60 [facility] Work Phone: [phone] Comment on above: Non- GFR Calc Urine Microalbumin/Creatinine Ratio 24.0 mg/g CRE <30 [facility] Work Phone: Serum or plasma calcium hilton urement (mass/volume)on 05-03-2022 Calcium [Mass/Vol] 8.9 mg/dL 8.5-10.1 [facility] Work Phone: [phone] Serum or plasma cholesterol in HDL measurement (mass/volume)on 05-03-2022 Cholesterol in HDL [Mass/Vol] 39 mg/dL >40 [facility] Work Phone: Comment on above: The drugs N-Acetylcy steine and Metamizole may falsely depress this assay. Reference Range HDL <40 mg/dL Low HDL Cholesterol HDL >or= 60 mg/dL High HDL Cholesterol Serum or plasma cholesterol in VLDL measurement (mass/volume)on 05-03-2022 Cholesterol in VLDL [Mass/Vol] 52 mg/dL 5-40 [facility] Work Phone: [phone] Serum or plasma creatinine m easurement (mass/volume)on 05-03-2022 Creatinine [Mass/Vol] 0.57 mg/dL 0.55-1.02 [facility] Work Phone: Comment on above: The validity of the calculated GFR & GFRAA in patients over 70 years has not been determined. Clinical correlation is essential. Serum or plasma low density lipoprotein (LDL) cholesterol measurement (mass/volume)on 05-03-2022 Cholesterol in LDL [Mass/Vol] 66 mg/dL 0-130 [facility] Work Phone: [phone] Serum or plasma urea nitroge n measurement (mass/volume)on 05-03-2022 Urea nitrogen [Mass/Vol] 10 mg/dL 7-18 [facility] Work Phone: [phone] Thin prep Papanicolaou smear with manual screeningon 05-03-2022 Thin prep Papanicolaou smear with manual screening 11 U/L 15-37 [facility] Work Phone: [phone] Thin prep Papanicolaou smear with manual screening 8 5-15 [facility] Work Phone: [phone] Thin prep Papanicolaou smear with manual screening 29.0 mg/L NO RANGE EST. [facility] Work Phone: Urine creatinine measurement (mass/volume)on 05-03-2022 Creatinine (U) [Mass/Vol] 121.00 mg/dL NO RANGE EST. [facility] Work Phone: Whole blood hemoglobin A1c/t otal hemoglobin ratio (mass fraction)on 05-03-2022 HbA1c (Bld) [Mass fraction] 6.7 % 3.8-5.6 [facility] Work Phone: Comment on above: Normal < 5.7 % Predi abetic 5.7 - 6.4 % Diabetic >or= 6.5 % Please note range changes. No Panel Informationon 04-13 POC SARS CoV-2 Antigen Positive [facility] Work Phone: Absolute lymphocyte counton 04-01-2022 Lymphocytes Auto (Unsp spec) [#/Vol] 2.54 10*3/uL 0.83-4.51 [facility] Work Phone: Atypical perinuclear antineu trophil cytoplasmic antibodies measurementon 04-01-2022 Neutrophil cytoplasmic Ab.perinuclear.atypical IF (S) [Titer] <1:20 titer Neg:<1:20 [facility] Work Phone: Comment on above: The atypical pANCA p attern has been observed in asignificant percentage of patients with ulcerative colitis,primary sclerosing cholangitis and autoimmune hepatitis. Basophil percentageon 2021 Basophils/100 WBC (Bld) 0.5 % 0-1 [facility] Work Phone: [phone] Bilirubin [Mass/Vol] 0.40 mg/dL 0.20-1.00 [facility] Work Phone: Comment on above: For patients on eltr ombopag therapy, use of Dimension [place] TBIL is not recommended. Eosinophils/100 WBC (Bld) 0.7 % 0-5 [facility] Work Phone: Neutrophils (Bld) [#/Vol] 6.5 10*3/uL 2.0-7.7 [facility] Work Phone: [phone] Neutrophils/100 WBC (Bld) 66.4 % 47-70 [facility] Work Phone: Protein [Mass/Vol] 8.2 g/dL 6.4-8.2 [facility] Work Phone: WBC (Bld) [#/Vol] 9.8 10*3/uL 4.4-11.0 [facility] Work Phone: Blood erythrocytes count (nu mber/volume)on 04-01-2022 RBC (Bld) [#/Vol] 5.14 10*6/uL 4.2-5.4 [facility] Work Phone: Blood hemoglobin measurement (mass/volume)on 04-01-2022 Hemoglobin (Bld) [Mass/Vol] 15.9 g/dL 12.0-15.0 [facility] Work Phone: Blood lymphocytes/100 leukoc yteson 04-01-2022 Lymphocytes/100 WBC (Bld) 25.9 % 19-41 [facility] Work Phone: Blood monocytes/100 leukocyt eson 04-01-2022 Monocytes/100 WBC (Bld) 5.9 % 0-10 [facility] Work Phone: Blood platelet mean volumeon 04-01-2022 Platelet mean volume (Bld) [Entitic vol] 9.5 fL 6.2-12.0 [facility] Work Phone: Determination of erythrocyte mean corpuscular volume (MCV)on 04-01-2022 MCV (RBC) [Entitic vol] 93.4 fL 81-99 [facility] Work Phone: Direct bilirubinon 2 Bilirubin.direct [Mass/Vol] 0.08 mg/dL 0.00-0.30 [facility] Work Phone: Hematocrit Auto (Bld) [Volum e fraction]on 04-01-2022 Hematocrit (Bld) [Volume fraction] 48.0 % 37-47 [facility] Work Phone: Laboratory - Chemistry and C hemistry - challengeon 04-01-2022 ALP [Catalytic activity/Vol] 68 U/L 45-117 [facility] Work Phone: [phone] ALT [Catalytic activity/Vol] 27 U/L 13-56 [facility] Work Phone: [phone] Globulin (S) [Mass/Vol] 4.0 g/dL 2.2-4.2 [facility] Work Phone: [phone] Laboratory - Hematology and Cell countson 04-01-2022 Erythrocyte distribution width (RBC) [Entitic vol] 39.8 fL 35.1-43.9 [facility] Work Phone: [phone] Erythrocyte distribution width (RBC) [Ratio] 11.7 % 11.6-14.6 [facility] Work Phone: [phone] Immature granulocytes/100 WBC (Bld) 0.600 % 0.0-0.9 [facility] Work Phone: [phone] Comment on above: IG% - Immature Granu locytes (promyelocytes, myelocytes and metamyelocytes) > 1% indicates that a LEFT SHIFT is Present. MCH (RBC) [Entitic mass] 30.9 pg 27.0-32.0 [facility] Work Phone: [phone] Nucleated RBC/100 WBC (Bld) [Ratio] 0 % 0-5 [facility] Work Phone: [phone] MCHC Auto (RBC) [Mass/Vol]on 04-01-2022 MCHC (RBC) [Mass/Vol] 33.1 g/dL 32-[address] [facility] Work Phone: [phone] Platelets bldon 04-01-2022 Platelets (Bld) [#/Vol] 455 10*3/uL 150-450 [facility] Work Phone: [phone] Serum classic neutrophil cyt oplasmic antibody assay (units/volume)on 04-01-2022 Neutrophil cytoplasmic Ab.classic Qn (S) <1:20 titer Neg:<1:20 [facility] Work Phone: [phone] Serum or plasma C reactive p rotein measurement (mass/volume)on 04-01-2022 CRP [Mass/Vol] 7.89 mg/L 0.0-3.0 [facility] Work Phone: Comment on above: C-Reactive Protein ( CRP) provides useful information for thediagnosis, therapy and monitoring of inflammatory processesand associated diseases. For the evaluation of Relative Riskfor Cardiovascular Disease, a High Sensitivity CRP (HSCRP)should be ordered. Serum or plasma actin IgG an tibody assay (units/volume)on 04-01-2022 Actin IgG Qn 3 Units 0-19 [facility] Work Phone: Comment on above: Negative 0 - 19 Weak positive 20 - 30 Moderate to strong positive >30 Actin Antibodies are found in 52-85% of patients with autoimmune hepatitis or chronic active hepatitis and in 22% of patients with primary biliary cirrhosis.Performed at: [facility] [id number] Director: Tacho Redmond PhD, Phone: [phone] Serum or plasma albumin hilton urement (mass/volume)on 04-01-2022 Albumin [Mass/Vol] 4.2 g/dL 3.2-5.0 [facility] Work Phone: Serum perinuclear neutrophil cytoplasmic antibody titer by immunofluorescenceon 04-01-2022 Neutrophil cytoplasmic Ab.perinuclear IF (S) [Titer] <1:20 titer Neg:<1:20 [facility] Work Phone: Comment on above: The presence of posi tive fluorescence exhibiting P-ANCA orC-ANCA patterns alone is not specific for the diagnosis ofWegener's Granulomatosis (WG) or microscopic polyangiitis.Decisions about treatment should not be based solely onANCA IFA results. The [employer] ANCA [employer] Consensusrecommends follow up testing of positive sera with both MS-3 and MPO-ANCA enzyme immunoassays. As many as 5% serumsamples are positive only by EIA. Ref. AM J Clin [id number];111:507-513. Thin prep Papanicolaou smear with manual screeningon 04-01-2022 Thin prep Papanicolaou smear with manual screening 20 U/L 15-37 [facility] Work Phone: Basophil percentageon 2021 Bilirubin [Mass/Vol] 0.30 mg/dL 0.20-1.00 [facility] Work Phone: Comment on above: For patients on eltr ombopag therapy, use of Dimension [place] TBIL is not recommended. Chloride [Moles/Vol] 102 mmol/L 98-107 [facility] Work Phone: Glucose [Mass/Vol] 189 mg/dL 74-106 [facility] Work Phone: Comment on above: Fasting Glucose resu lt greater than or equal to 126 mg/dL suggests DIABETES MELLITUS per A.D.A. criteria. Potassium [Moles/Vol] 3.6 mmol/L 3.5-5.1 [facility] Work Phone: Protein [Mass/Vol] 7.5 g/dL 6.4-8.2 [facility] Work Phone: Sodium [Moles/Vol] 140 mmol/L 136-145 [facility] Work Phone: Laboratory - Chemistry and C hemistry - challengeon 03-21-2022 ALP [Catalytic activity/Vol] 75 U/L 45-117 [facility] Work Phone: ALT [Catalytic activity/Vol] 26 U/L 13-56 [facility] Work Phone: CO2 [Moles/Vol] 28.0 mmol/L 21.0-32.0 [facility] Work Phone: [phone] Globulin (S) [Mass/Vol] 3.8 g/dL 2.2-4.2 [facility] Work Phone: Urea nitrogen/Creatinine [Mass ratio] 17.4 mg/mg 10-20 [facility] Work Phone: No Panel Informationon 03-21 Estimated GFR (MDRD) Amer 108 mL/min >60 [facility] Work Phone: Comment on above: GFR Calc Estimated GFR (MDRD) Non-Af Amer 89 mL/min >60 [facility] Work Phone: Comment on above: Non- GFR Calc Serum or plasma albumin hilton urement (mass/volume)on 03-21-2022 Albumin [Mass/Vol] 3.7 g/dL 3.2-5.0 [facility] Work Phone: Serum or plasma albumin/glob ulin mass ratioon 03-21-2022 Albumin/Globulin [Mass ratio] 1.0 {ratio} 0.9-2.4 [facility] Work Phone: Serum or plasma calcium hilton urement (mass/volume)on 03-21-2022 Calcium [Mass/Vol] 9.5 mg/dL 8.5-10.1 [facility] Work Phone: Serum or plasma creatinine m easurement (mass/volume)on 03-21-2022 Creatinine [Mass/Vol] 0.75 mg/dL 0.55-1.02 [facility] Work Phone: Comment on above: The validity of the calculated GFR & GFRAA in patients over 70 years has not been determined. Clinical correlation is essential. Serum or plasma urea nitroge n measurement (mass/volume)on 03-21-2022 Urea nitrogen [Mass/Vol] 13 mg/dL 7-18 [facility] Work Phone: Thin prep Papanicolaou smear with manual screeningon 03-21-2022 Thin prep Papanicolaou smear with manual screening 16 U/L 15-37 [facility] Work Phone: [phone] Thin prep Papanicolaou smear with manual screening 10 5-15 [facility] Work Phone: Vital Signs Date Time Vital Sign Value Performing Clinician Faci lity 02-13-2023 14:14-0400 Body weight 131.09 kg Sadie Vega MD Work Phone: [facility] 02-13-2023 14:14-0400 Diastolic blood pressure 71 mm[Hg] Sadie Vega MD Work Phone: [facility] 02-13-2023 14:14-0400 Heart rate 77 /min Sadei Vega MD Work Phone: [facility] 02-13-2023 14:14-0400 Systolic blood pressure 126 mm[Hg] Sadie Vega MD Work Phone: [facility] 07-10-2022 16:02-0400 Body height 180.[address] Rogers Bellamy Work Phone: [facility] Work Phone: 07-10-2022 16:02-0400 Body mass index (BMI) [Ratio] 38.7 kg/m2 Dr. Rogers Bellamy Work Phone: [facility] Work Phone: 07-10-2022 16:02-0400 Body temperature 98 [degF] Dr. Rogers Bellamy Work Phone: [facility] Work Phone: 07-10-2022 16:02-0400 Body weight 126.[address] Rogers Bellamy Work Phone: [facility] Work Phone: 07-10-2022 16:02-0400 Diastolic blood pressure 82 mm[Hg] Dr. Rogers Bellamy Work Phone: [facility] Work Phone: 07-10-2022 16:02-0400 Heart rate 98 /min Dr. Rogers Bellamy Work Phone: [facility] Work Phone: 07-10-2022 16:02-0400 Respiratory rate 16 /min Dr. Rogers Bellamy Work Phone: [facility] Work Phone: 07-10-2022 16:02-0400 SaO2% (BldA) [Mass fraction] 98 % Dr. Rogers Bellamy Work Phone: [facility] Work Phone: 07-10-2022 16:02-0400 Systolic blood pressure 132 mm[Hg] Dr. Rogers Bellamy Work Phone: [facility] Work Phone: 04-13-2022 13:42-0400 Body temperature 95.2 [degF] Dr. Rogers Bellamy Work Phone: [facility] Work Phone: 04-13-2022 13:42-0400 Diastolic blood pressure 80 mm[Hg] Dr. Rogers Bellamy Work Phone: [facility] Work Phone: 04-13-2022 13:42-0400 Heart rate 88 /min Dr. Rogers Bellamy Work Phone: [facility] Work Phone: 04-13-2022 13:42-0400 Respiratory rate 16 /min Dr. Rogers Bellamy Work Phone: [facility] Work Phone: 04-13-2022 13:42-0400 SaO2% (BldA) [Mass fraction] 97 % Dr. Rogers Bellamy Work Phone: [facility] Work Phone: 04-13-2022 13:42-0400 Systolic blood pressure 140 mm[Hg] Dr. Rogers Bellamy Work Phone: [facility] Work Phone: 03-05-2022 16:55-0400 Body height 180.[address] Rogers Bellamy Work Phone: [facility] Work Phone: 03-05-2022 16:55-0400 Body mass index (BMI) [Ratio] 39.7 kg/m2 Dr. Rogers Bellamy Work Phone: [facility] Work Phone: 03-05-2022 16:55-0400 Body temperature 97.9 [degF] Dr. Rogers Bellamy Work Phone: [facility] Work Phone: 03-05-2022 16:55-0400 Body weight 129.[address] Rogers Bellamy Work Phone: [facility] Work Phone: 03-05-2022 16:55-0400 Diastolic blood pressure 86 mm[Hg] Dr. Rogers Bellamy Work Phone: [facility] Work Phone: 03-05-2022 16:55-0400 Heart rate 80 /min Dr. Rogers Bellamy Work Phone: [facility] Work Phone: 03-05-2022 16:55-0400 Respiratory rate 18 /min Dr. Rogers Bellamy Work Phone: [facility] Work Phone: 03-05-2022 16:55-0400 SaO2% (BldA) [Mass fraction] 98 % Dr. Rogers Bellamy Work Phone: [facility] Work Phone: 03-05-2022 16:55-0400 Systolic blood pressure 128 mm[Hg] Dr. Rogers Bellamy Work Phone: [facility] Work Phone: 11-27-2021 17:10-0400 Body mass index (BMI) [Ratio] 41.7 kg/m2 Dr. Rogers Bellamy Work Phone: [facility] Work Phone: 11-27-2021 17:10-0400 Body temperature 98.2 [degF] Dr. Rogers Bellamy Work Phone: [facility] Work Phone: 11-27-2021 17:10-0400 Body weight 135.[address] Rogers Bellamy Work Phone: [facility] Work Phone: 11-27-2021 17:10-0400 Diastolic blood pressure 80 mm[Hg] Dr. Rogers Bellamy Work Phone: [facility] Work Phone: 11-27-2021 17:10-0400 Heart rate 92 /min Dr. Rogers Bellamy Work Phone: [facility] Work Phone: 11-27-2021 17:10-0400 Respiratory rate 14 /min Dr. Rogers Bellamy Work Phone: [facility] Work Phone: 11-27-2021 17:10-0400 SaO2% (BldA) [Mass fraction] 99 % Dr. Rogers Bellamy Work Phone: [facility] Work Phone: 11-27-2021 17:10-0400 Systolic blood pressure 124 mm[Hg] Dr. Rogers Bellamy Work Phone: [facility] Work Phone: Encounters Encounter Date Encounter Type Care Provider Facility Start: 04-17-2025 End: 04-17-2025 ambulatory Maciel Alcaraz Facility:[facility] Start: 04-12-2025 Encounter for gynecological examination (general) (routine) without abnormal findings Beatrice Martin [facility] Start: 04-12-2025 End: 04-12-2025 ambulatory Beatrice Martin Facility:[facility] Start: 04-12-2025 End: 04-12-2025 ambulatory Beatrice Martin Facility:[facility] Start: 03-14-2025 End: 04-07-2025 ambulatory Anna Huang Facility:[facility] Start: 02-27-2025 End: 02-27-2025 ambulatory Rogers Bellamy Facility:[facility] Start: 02-23-2025 End: 03-13-2025 ambulatory Anna DiLauro Facility:[facility] Start: 02-15-2025 End: 02-17-2025 ambulatory Anna DiLauro Facility:[facility] Start: 02-13-2025 End: 02-13-2025 ambulatory Efewongbe Oleghe Facility:[facility] Start: 01-23-2025 End: 01-23-2025 ambulatory Anna DiLauro Facility:[facility] Start: 01-18-2025 End: 01-18-2025 ambulatory Efewongbe Oleghe Facility:[facility] Start: 01-16-2025 End: 02-11-2025 ambulatory Anna DiLauro Facility:[facility] Start: 12-05-2024 End: 12-05-2024 ambulatory Marino Friend Facility:[facility] Start: 12-05-2024 End: 12-05-2024 ambulatory Efewongbe Oleghe Facility:[facility] Start: 12-03-2024 End: 12-03-2024 ambulatory Efewongbe Oleghe Facility:[facility] Start: 11-25-2024 End: 11-25-2024 ambulatory Fernando BENTON Facility:[facility] Start: 10-04-2024 Encounter for other preprocedural examination Marino Trottre [facility] Start: 09-12-2024 End: 09-12-2024 ambulatory Efewongbe Oleghe Facility:[facility] Start: 09-12-2024 End: 09-12-2024 ambulatory Efewongbe Oleghe Facility:[facility] Start: 09-09-2024 End: 09-09-2024 ambulatory Efewongbe Oleghe Facility:[facility] Start: 09-05-2024 End: 09-05-2024 ambulatory Marino Trotter Facility:[facility] Start: 08-27-2024 End: 08-27-2024 ambulatory April Schmidt Facility:[facility] Start: 07-28-2024 End: 07-28-2024 ambulatory Efewongbe Oleghe Facility:[facility] Start: 2024 ambulatory Calista Garcia Facility:[facility] Start: 06-06-2024 End: 06-06-2024 ambulatory Efewongbe Oleghe Facility:[facility] Start: 05-25-2024 End: 05-25-2024 ambulatory Rogers Bellamy Facility[facility] Start: 05-21-2024 End: 05-21-2024 ambulatory April Schmidt Facility:[facility] Start: 05-18-2024 End: 05-18-2024 ambulatory Maciel Alcaraz Facility:[facility] Start: 06-26-2023 End: 06-26-2023 ambulatory FROILAN BROWN Facility:[facility] Start: 05-02-2023 End: 05-02-2023 ambulatory SADIE VEGA Facility:[facility] Start: 04-13-2023 End: 04-13-2023 ambulatory Tad Andersen PhD Work Phone: Neurology Comment on above: Neuropsychological e valuation Start: 04-13-2023 E-mail encounter luigi holden caregiver Tad Andersen PhD Work Phone: [facility] Start: 04-13-2023 End: 04-13-2023 Patient encounter procedure Tad Andersen PhD Work Phone: Neuropyschology Comment on above: Cognitive disorder ( Primary Dx); Migraine aura without headache; ELVIS (obstructive sleep apnea) Start: 02-16-2023 Telephone encounter Sadie Vega MD Work Phone: [facility] Comment on above: Appointment ([facility] for patient to call so we can get her scheduled for a report visit with Dr Vega ) Start: 02-13-2023 End: 02-13-2023 ambulatory SADIE VEGA Facility:[facility] Start: 02-13-2023 End: 02-13-2023 ambulatory SADIE VEGA Facility:[facility] Start: 02-13-2023 End: 02-13-2023 Patient encounter procedure Sadie Vega MD Work Phone: Neurology Comment on above: Memory impairment (P rimary Dx); Cognitive complaints; Psychophysiologic insomnia; Stress at work; Obstructive sleep apnea Start: 10-13-2022 Telephone encounter Froilan Amado on DO Work Phone: Neurology Comment on above: 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 (Ubrelvy ) Start: 09-21-2022 ambulatory Froilan Mane Work Phone: Neurology Comment on above: Plans Start: 09-21-2022 E-mail encounter luigi m caregiver Froilan Brown DO Work Phone: [facility] Start: 08-22-2022 End: 08-22-2022 Subsequent hospital visit by physician [facility] (I-Stat/1.5t) Work Phone: Radiology Comment on above: Cognitive impairment , mild, so stated [G31.84] Start: 08-20-2022 End: 08-20-2022 Telemedicine consultation with patient Froilan Brown DO Work Phone: [facility] Start: 08-20-2022 End: 08-20-2022 ambulatory Froilan Brown DO Work Phone: Neurology Comment on above: Migraine with aura a nd without status migrainosus, not intractable (Primary Dx); Migraine aura without headache; Abdominal migraine, not intractable; Migraine without aura and without status migrainosus, not intractable; Cognitive impairment, mild, so stated; Memory impairment Start: 08-20-2022 Follow-up encounter Froilan Ascencio DO Work Phone: Neurology Comment on above: Blood Work Results/F ollow up from Virtual Appointment on 08/20/2022 Start: 07-10-2022 End: 07-10-[address] Rogers Bellamy Work Phone: [facility] Start: 06-30-2022 End: 06-30-[address] Rogers Bellamy Work Phone: [facility] Start: 05-03-2022 End: 05-03-[address] Rogers Bellamy Work Phone: [facility] Work Phone: Start: 05-03-2022 End: 05-03-[address] Rogers Bellamy Work Phone: [facility] Start: 04-23-2022 End: 04-23-[address] Rogers Bellamy Work Phone: [facility] [place] Start: 04-13-2022 End: 04-13-[address] Rogers Bellamy Work Phone: [facility] Start: 04-01-2022 End: 04-01-[address] Rogers Bellamy Work Phone: [facility] Start: 03-21-2022 End: 03-21-[address] Rogers Bellamy Work Phone: [facility] Start: 03-05-2022 End: 03-05-[address] Rogers Bellamy Work Phone: [facility] Start: 01-14-2022 Telephone encounter Froilanjoey Amado on DO Work Phone: Neurology Comment on above: 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 (Nurtec 75mg 05/13) Start: 01-14-2022 End: 01-14-2022 ambulatory Froilan Marissa Brown DO Work Phone: Neurology Comment on above: Migraine without aur a and without status migrainosus, not intractable (Primary Dx); Migraine with aura and without status migrainosus, not intractable; Chronic daily headache; Chronic tension-type headache, intractable Start: 01-14-2022 End: 01-14-2022 Telemedicine consultation with patient Froilanjoey Brown DO Work Phone: [facility] Start: 12-30-2021 End: 12-30-[address] Rogers Bellamy Work Phone: [facility] Start: 11-27-2021 End: 11-27-[address] Rogers Bellamy Work Phone: [facility] Procedures Date Procedure Procedure Detail Performing Clinician Start: 08-22-2022 Mri brain brain stem w/o contrast material Froilan Brown DO Work Phone: Start: 04-23-[address] Rogers Bellamy Work Phone: Start: 04-23-[address] Rogers Bellamy Work Phone: Start: 01-13-2022 Adult depression scr eening assessment Froilan Brown DO Work Phone: Plan of Treatment Date Care Activity Detail Author Start: 03-15-2024 Urine microalbumin profile [facility] Start: 02-14-2024 BP CONTROLLED (<130/80) BP CONTROLLE D (<130/80) [facility] Start: 05-15-2023 Covid-19 Vaccine () Covid-19 Vaccine () [facility] Start: 05-15-2023 Influenza vaccination [facility] Start: 02-13-2023 End: 04-15-2023 Cobalamin (Vitamin B12) [Mass/volume] in Serum or Plasma [facility] Work Phone: Comment on above: Expected: 02/13/2023 , Expires: 04/15/2023 Start: 01-13-2023 Adult depression screening assessment DEPRESSION SCREENING [facility] Start: 09-14-2022 DEPRESSION ASSESSMENT DEPRESSION ASS ESSMENT [facility] Start: 2022 COLOGUARD (FIT-DNA) COLOGUARD (FIT-D NA) [facility] Start: 2022 Colonoscopy COLONOSCOPY [facility] Start: 2022 COLORECTAL CANCER SCREENING COLORECTAL CANCER SCREENING [facility] Start: [address] COLONOGRAPHY [facility] Start: 2022 DIABETES SCREEN DIABETES SCREEN [facility] Start: 2022 Diabetes Screening Diabetes Screenin g [facility] Start: 2022 FECAL OCCULT BLOOD FECAL OCCULT BLOO D [facility] Start: 2022 Lipid 1996 panel - S eric or Plasma Lipid Screening [facility] Start: 2022 LIPID SCREEN LIPID SCREEN [facility] Start: 2022 SIGMOIDOSCOPY SIGMOIDOSCOPY [facility] Start: 05-22-2022 COVID-19 VACCINE (5 - Booster for Moderna series) COVID-19 VACCINE (5 - Booster for Moderna series) [facility] Start: 05-22-2022 COVID-19 VACCINE (5 - Moderna series) COVID-19 VACCINE (5 - Moderna series) [facility] Start: 03-05-2022 Patient referral [facility] Work Phone: Start: 09-14-2021 DEPRESSION ASSESSMENT DEPRESSION ASS ESSMENT [facility] Start: 03-10-2018 HPV TESTING HPV TESTING [facility] Start: 03-10-2018 PAP TESTING PAP TESTING [facility] Start: 2017 Mammography [facility] Start: 1995 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 ANNUAL PCP TEAM CHRONIC DISEASE VISIT [facility] Start: 1995 BP CONTROLLED (<130/80) BP CONTROLLE D (<130/80) [facility] Start: 1995 HEPATITIS C SCREENING HEPATITIS C SC REENING [facility] Start: 1995 HIV SCREENING HIV SCREENING [facility] Start: 1977 HEPATITIS B (1 of 3 - 3-dose series) HEPATITIS B (1 of 3 - 3-dose series) [facility] Start: 1977 Hepatitis B Vaccine (1 of 3 - 3-dose series) Hepatitis B Vaccine (1 of 3 - 3-dose series) [facility] End: 09-19-2023 Mri brain brain stem w/o contrast material MRI BRAIN WO IVCON Radiology Routine Cognitive impairment, mild, so stated Memory impairment 1 Occurrences starting 08/20/2022 until 09/19/2023 [facility] Work Phone: Comment on above: 1 Occurrences starti ng 08/20/2022 until 09/19/2023 Patient referral [facility] Work Phone[facility] Immunizations Immunization Date Immunization Notes Care Provider Dick eastman 07-10-2022 influenza, seasonal, injectable Dr. Rogers Bellamy Work Phone: [facility] Work Phone: 07-10-2022 influenza virus vaccine, unspecified formulation Mri (I-Stat/1.5t) Work Phone: [facility] 03-15-2014 tetanus toxoid, redu chuyita diphtheria toxoid, and acellular pertussis vaccine, adsorbed Froilan Brown DO Work Phone: [facility] Work Phone: Payers Date Payer Category Payer Unknown [id number] 2025 Unknown S 2024 Unknown [id number] 2024 Self-pay [id number] 2021 Unknown [employer] PPO [id number] 2021-Present [phone] [address] [place] [address] PPO [id number] 2021 Unknown [id number] 2021 Private Health Insurance [facility] CHO[employer] PL[employer] [id number] 2021-Present [phone] [address] [place] [address] HMO [id number] 2019 Unknown [id number]. [id number] 2019 Unknown [id number]. [id number]. [id number] 2011 Private Health Insurance [id number] Private Health Insurance [id number] Unknown [facility] [place]AR[place] [id number] Unknown [id number] 2.16.840.1.777976.3.579.2. 462 Unknown [id number] 2.16.840.1.687608.3.579.2. 462 Unknown [id number] 2.16.840.1.751028.3.579.2. 462 Unknown [id number] 2.16.840.1.321482.3.579.2. 462 Unknown [id number] 2.16.840.1.822138.3.579.2. 462 Unknown [id number] 2.840.1.609021.3.579.2. 462 Unknown [id number] 2.16.840.1.218880.3.579.2. 462 Unknown [id number] 2.16.840.1.463352.3.579.2. 462 Unknown [id number] 2.16.840.1.862714.3.579.2. 462 Unknown [id number] 2.16.840.1.702077.3.579.2. 462 Unknown [id number] 2.16.840.1.389506.3.579.2. 462 Unknown [id number] 2.16.840.1.659587.3.579.2. 462 Unknown [id number] 2.16.840.1.514964.3.579.2. 462 Unknown [id number] 2.16.840.1.405871.3.579.2. 462 Unknown [id number] 2.16.840.1.040595.3.579.2. 462 Unknown [id number] 2.16.840.1.689397.3.579.2. 462 Unknown [id number] 2.16.840.1.865897.3.579.2. 462 Unknown [id number] 2.16.840.1.842283.3.579.2. 462 Unknown [id number] 2.16.840.1.430300.3.579.2. 462 Unknown [id number] 2.16.840.1.560384.3.579.2. 462 Unknown [id number] 2.16.840.1.523151.3.579.2. 462 Unknown [id number] 2.16.840.1.546503.3.579.2. 462 Unknown [id number] 2.16.840.1.720086.3.579.2. 462 Unknown [id number] 2.16.840.1.924527.3.579.2. 462 Unknown [id number] 2.16.840.1.015583.3.579.2. 462 Unknown [id number] 2.16.840.1.518472.3.579.2. 462 Unknown [id number] 2.16.840.1.061150.3.579.2. 462 Social History Date Type Detail Facility Start: 12-19-2011 Tobacco smoking stat us HIIS Never smoked tobacco [facility] Start: 07-12-2021 End: 04-30-2022 Alcohol intake Current non-drinker of alcohol (finding) [facility] Start: 1975 Sex Assigned At Female [facility] Start: 03-05-2022 End: 07-10-2022 Tobacco smoking status HIIS Unknown if ever smoked [facility] Work Phone: Start: 12-19-2011 Tobacco use and exposure Smokeless tobacco non-user [facility] Start: 08-19-2022 End: 02-13-2023 History of Social function [facility] Start: 08-19-2022 End: 02-13-2023 Tobacco use panel [facility] Adult Depression Screening Assessment 0 [facility] Start: 08-01-2021 Gender identity Identifies as female gender (finding) [facility] Start: 08-01-2021 Sexual orientation Heterosexual (yomaira rangel) [facility] Medical Equipment Procedure Code Equipment Code Equipment Origin al Text Equipment Identifier Dates Blood Sugar Diagnostic (Accu-Chek Guide Test Strips) strip Start: 09-03-2021 Lancets (Accu-Ch ek Fastclix Lancet Drum) misc Start: 09-03-2021 Blood Sugar Diagnostic (Accu-Chek Guide Test Strips) strip Start: 09-03-2021 Lancets (Accu-Ch ek Fastclix Lancet Drum) misc Start: 09-03-2021 Blood Sugar Diagnostic (Accu-Chek Guide Test Strips) strip Start: 09-03-2021 Lancets (Accu-Ch ek Fastclix Lancet Drum) misc Start: 09-03-2021 Blood Sugar Diagnostic (Accu-Chek Guide Test Strips) strip Start: 09-03-2021 Lancets (Accu-Ch ek Fastclix Lancet Drum) misc Start: 09-03-2021 Clinical Notes 01-16-2014 to 09-09-2024 Tad Andersen, PhD - 04/13/2023 9:24 AM EDTTelephone Encounter - Roxanne Montanez - 02/16/2023 8:30 AM EDTPatient Vaishnavi Mazariegos - 02/13/2023 2:20 PM EDT Note Date & Type Note Facility 09-09-2024 Note [facility] Medical Records Department [address] [place] [address] History Physical Exam 09/09/24 1133 MR#: [id number] Acct: [id number] Name: JOANNE STALLWORTH Rep #: [id number] : 1975 49 From: Marino Friend PCP: Dr. Rogers Bellamy MD Status:[facility] Location: [place] [address] HPI - General General Date of Admission: 09/09/24 Date of Service: 09/09/24 Chief Complaint: Screening colon HPI Narrative JOANNE STALLWORTH, is a 49 F who presents today for a screening colonoscopy. 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 She is not having any medical problems at this time. [facility] Medical History Wears glasses Depression Anxiety Injury of head and neck Non-smoker BiPAP (biphasic positive airway pressure) dependence Shortness of breath on exertion History of stress test Health care maintenance Colon cancer screening Hypokalemia Insomnia Psoriasis MDD (major depressive disorder) Acute streptococcal pharyngitis Flu vaccine need Menstrual irregularity Fatty liver disease, nonalcoholic Osteoarthritis Morbid obesity ELVIS (obstructive sleep apnea) Type 2 diabetes mellitus Chronic diarrhea History of breast lump GERD (gastroesophageal reflux disease) Raynauds disease Anxiety and depression Sleep apnea History of kidney stones Pectus excavatum Chronic neck and back pain Difficulty balancing Migraines Knee pain Severe headache Anemia Diabetes Shoulder pain Arthritis Hypertension Home Medications ???Medication ???Instructions ???Recorded ???Last Taken ???Type rizatriptan 10 mg disintegrating 10 mg PO PRN PRN Migraine Symptoms 07/01/16 09/08/24 History tablet biotin 1 mg capsule 1 mg PO DAILY 10/18/18 09/08/24 History cholecalciferol (vitamin D3) 25 1,000 unit PO DAILY 10/18/18 09/08/24 History mcg (1,000 unit) capsule magnesium 250 mg tablet 250 mg PO DAILY 10/18/18 09/08/24 History omega-3 fatty acids 1,000 mg 1,000 mg PO DAILY 10/18/18 09/08/24 History capsule (Fish Oil Concentrate) vitamin A palmitate 3,000 mcg 10,000 unit PO DAILY 10/18/18 09/08/24 History (10,000 unit) tablet ascorbic acid (vitamin C) 500 mg 500 mg PO DAILY 09/03/21 09/08/24 History capsule blood sugar diagnostic (Accu-Chek #10 ea 09/03/21 Unknown History Guide test strips) cranberry fruit concentrate 250 mg 250 mg PO DAILY 09/03/21 09/08/24 History chewable tablet (Azo Cranberry) lancets (Accu-Chek Fastclix Lancet #100 ea 09/03/21 Unknown History Drum) metformin 1,000 mg tablet,extended 1,000 mg PO BID 3 months #180 tabs 09/03/21 09/08/24 Rx release 24hr (osmotic) vitamin E 268 mg (400 unit) capsule 800 unit PO DAILY #60 caps 11/04/21 09/08/24 Rx CoQ10 200 mg PO 1XD 03/05/22 09/08/24 History acetaminophen 650 mg 650 mg PO Q12H PRN pain 07/10/22 Unknown History tablet,extended release (Tylenol Arthritis Pain) celecoxib 200 mg capsule (Celebrex) 200 mg PO BID 07/10/22 09/08/24 History ropinirole 0.25 mg tablet 0.25 mg PO QHS #30 tabs 09/29/22 09/08/24 Rx hydroxyzine HCl 25 mg tablet 25 mg PO BID PRN anxiety #60 tabs 11/11/23 09/08/24 Rx dapagliflozin propanediol 10 mg 10 mg PO QDAY 03/02/24 09/08/24 History tablet (Farxiga) glimepiride 2 mg tablet 2 mg PO BID 03/02/24 09/08/24 History multivitamin 1 tab PO DAILY 03/02/24 09/08/24 History hydrochlorothiazide 25 mg tablet 25 mg PO QAM #90 TABLETS 03/22/24 09/08/24 Rx ursodiol 250 mg tablet 250 mg PO DAILY #30 tabs 04/14/24 09/08/24 Rx doxepin 10 mg capsule See Rx Instructions .Route 05/18/24 09/08/24 Rx .COMPLEX #90 caps duloxetine 30 mg capsule,delayed See Rx Instructions .Route 05/18/24 09/08/24 Rx release .COMPLEX #90 caps duloxetine 60 mg capsule,delayed See Rx Instructions .Route 05/18/24 09/08/24 Rx release .COMPLEX #90 caps norethindrone (contraceptive) 0.35 See Rx Instructions .Route 05/19/24 09/08/24 Rx mg tablet .COMPLEX #84 tabs potassium chloride 20 mEq 20 meq PO DAILY #60 tabs 06/14/24 09/08/24 Rx tablet,extended release losartan 100 mg tablet 100 mg PO DAILY #90 tabs 07/20/24 09/09/24 Rx metoprolol tartrate 50 mg tablet 50 mg PO BID 3 months #180 TABLETS 08/08/24 09/09/24 Rx cyanocobalamin (vitamin B-12) 50 50 mcg PO DAILY 09/08/24 09/08/24 History mcg tablet (Vitamin B-12) Allergy/AdvReac Type Severity Reaction Status Date / Time adhesive tape (paper tape) Allergy Unknown Other Verified 09/09/24 11:15 adhesive Allergy Hives Verified 09/09/24 11:15 azithromycin (From Zithromax) Allergy Hives Verified 09/09/24 11:15 diazepam (From Valium) AdvReac Other Verified 09/09/24 11:15 lisinopril AdvReac Cough Verified 09/09/24 11:15 prednisone AdvReac [place] Verified 12 (more content not included)... [facility] 06-26-2023 Note HNO ID: [id number] Author: Froilan Brown, DO Service: ? Author Type: Physician Type: [...] volume loss given age, slightly progressed since 2014. Consider correlation with clinical parameters and/or MRI of the brain with the ADNI protocol for quantitative volumes on main campus if clinically indicated. Single focus of nonspecific T2/FLAIR hyperintensity in the right frontal centrum semiovale which is nonspecific and unchanged, but may be due to remote insult/minimal chronic microvascular change. Synthetic Resin Operator: CHAPARRO Transcribe Date/Time: Aug 22 2022 6:26P Dictated by : JO KATHLEEN MD This examination was interpreted and the report reviewed and electronically signed by: JO KATHLEEN MD on Aug 22 2022 6:44PM EST Results-Findings * * *Final Report* * * DATE OF EXAM: Aug 22 2022 4:42PM [facility] 0294 - MRI BRAIN WO IVCON [...] rather than subdural hygromas, slightly progressed since 2014. The brain parenchyma is otherwise within normal [...] Role Function-Preventive T (more content not included)... [facility] 05-02-2023 Note HNO ID: [id number] Author: Sadie Vega MD Service: ? Author Type: Physician Type: Progress Notes Filed: 05/02/2023 3:09 PM Note Text: Neurology Return, [facility], virtual Patient's clinic evaluation was scheduled as a virtual visit using [employer] platform. I have communicated my name and active licensure. The patient's identity and physical location were verified at the time of this visit. Either the patient or their legal public relations representative has been informed of the risks and benefits of -- and alternatives to -- treatment through a remote evaluation and consents to proceed with the evaluation remotely. Joanne Stallworth consented to the video evaluation and its limitations. Based on this evaluation it may be necessary for patient to schedule a follow up evaluation with myself or other providers for formal physical examination and if necessary,other studies. Patient was present for the visit alone. Joanne Stallworth is a 47 year old female whom [...] study was performed on 04/13/2023. SUMMARY/IMPRESSIONS: Ms. Joanne Stallworth is a 47 year old, White female [...] all of which are present for Ms. Stallworth. RECOMMENDATIONS From a cognitive perspective, while she [...] please rate ho (more content not included)... [facility] 04-13-2023 Note HNO ID: [id number] Author: Tad Andersen, PhD Service: ? 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 This neuropsychological assessment is part of a multidisciplinary evaluation conducted in the [facility]. The assessment consisted of a brief interview with the patient and collateral (when available), neurobehavioral examination, and standardized neuropsychological assessment.Given the targeted nature of the referral, details of the patient's history, which are already known to the referral source, are only briefly summarized. Please see patient medical records for more detailed information. RELEVANT BACKGROUND: Ms. 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 She reports stress related to management [...] word reading performance and demographic variables, Ms. Stallworth's premorbid intellectual abilities are estimated to be in the average range. Attention/Processing Speed: Auditory attention span was high average. Performance on a measure of visuomotor processing speed and sequencing was high average. Processing speed on a digit-symbol certified nurse aide task was average. Speeded color naming was average, and speeded word reading was average. Performance on a sustained attention task showed poor vigilance and inattentiveness. Executive functioning: Mental flexibility and visuomotor set shifting was high average. Verbal response inhibition was extremely low, and the same task with a set switching component was average. Qualitatively, the machine buffer observed the patient to slow down on [...] normal limits Visuospati (more content not included)... 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 This neuropsychological assessment is part of a multidisciplinary evaluation conducted in the [facility]. The assessment consisted of a brief interview with the patient and collateral (when available), neurobehavioral examination, and standardized neuropsychological assessment.Given the targeted nature of the referral, details of the patient's history, which are already known to the referral source, are only briefly summarized. Please see patient medical records for more detailed information. RELEVANT BACKGROUND: Ms. Joanne Stallworth is a 47 year old, White female [...] GERD, DM2, Raynaud's, depression and anxiety, ELVIS, SIMMOSN. 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 She reports stress related to management [...] word reading performance and demographic variables, Ms. Vila premorbid intellectual abilities are estimated to be in the average range. Attention/Processing Speed: Auditory attention span was high average. Performance on a measure of visuomotor processing speed and sequencing was high average. Processing speed on a digit-symbol certified nurse aide task was average. Speeded color naming was average, and speeded word reading was average. Performance on a sustained attention task showed poor vigilance and inattentiveness. Executive functioning: Mental flexibility and visuomotor set shifting was high average. Verbal response inhibition was extremely low, and the same task with a set switching component was average. Qualitatively, the machine buffer observed the patient to slow down on [...] angle estimation task was average. Mood: Ms. Stallworth endorsed minimal symptoms of depression and mild symptoms of anxiety on self-report measures. SUMMARY/IMPRESSIONS: Ms. Joanne Stallworth is a 47 year old, White female [...] all of which are present for Ms. Stallworth. RECOMMENDATIONS From a cognitive perspective, while she [...] a forensic, disability, or workers' compensation evaluation. Tad Andersen, Ph.D., ABPP-CN Board Certified in Clinical Neuropsychology Neurobehavioral status exam/clinical interview by neuropsychologist = 1 hour Neuropsychological evaluation services by neuropsychologist = 2 hours Neuropsychological test administration/scoring by machine buffer = 3 hours documented in this encounter [facility] 02-16-2023 Miscellaneous Notes Summary: appointments Lv for patient to call so we can get her scheduled for a report visit with Dr Vega documented in this encounter [facility] 02-13-2023 Instructions Sadie Vega MD - 02/13/2023 5:20 PM EDT Recommend: Sleep behavioral medicine for insomnia management Follow up with her sleep provider to ensure adequate treatment of sleep apnea Optimal behavioral health management for stress, defer to her psychiatrist for potential therapy Neuropsychology testing for cognitive baseline Get B12 level Return after neuropsychology testing Please call [phone] for scheduling documented in this encounter [facility] 02-13-2023 Nurse Note Joanne Stallworth is a 47 year old year old right handed woman Accompanied by: mother. 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 What would you like to accomplish with this visit today? Figure out why my brain feels like a sieve, like a strainer sometime. Vital Signs: BP 126/71 Pulse 77 Wt 131.1 kg (289 lb) LMP 04/23/2015 BMI 40.31 kg/m documented in this encounter [facility] 02-13-2023 History of Present illness Narrative Images from the original note were not included. NEUROLOGY CONSULTATION, [facility] REASON FOR CONSULTATION: Cognitive concerns Consultation requested by Froilan Brown for an opinion regarding Joanne Stallworth. My final recommendations will be communicated back to the requesting physician by way of shared Medical record or letter to requesting physician via US mail. HISTORY OF PRESENT ILLNESS Joanne Stallworth is a 47 year old right handed female with 18 years of formal education, whom we are asked to see for evaluation of cognitive concerns. History was provided by patient and her mother. Additional reports including outside records, imagings were reviewed. 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 She did not lose consciousness. Serological [...] speech was fluent, followed commands without problems. Nilson Cognitive Assessment (MoCA) COGNITIVE TESTING: Clay cognitive assessment test version 7.1 was . Visuospatial and executive function test was 4/5. [...] Sleep apnea, compliant with BiPAP, still sleepy Joanne Stallworth is a 47 year old right handed [...] level Return after neuropsychology testing Please call [phone] for scheduling ADMINISTRATIVE BILLING I spent a total of 60 minutes on the date of the service which included preparing to see the patient, [id number] patient care, completing clinical documentation, obtaining and/or reviewing separately obtained history, performing a medically appropriate examination, counseling and educating the patient/family/caregiver, ordering medications, tests, or procedures, independently interpreting results (not separately reported), and communicating results to the patient/family/caregiver. This note was partially generated using voice recognition technology system, any errors noted are due to the technology and are unintentional. cc: Froilan Brown [address] [facility] [id number] documented in this encounter [facility] 02-13-2023 Note HNO ID: [id number] Author: Sadie Vega MD Service: ? Author Type: Physician Type: Progress Notes Filed: 02/13/2023 5:22 PM Note Text: NEUROLOGY CONSULTATION, [facility] REASON FOR CONSULTATION: Cognitive concerns Consultation requested by Froilan Brown for an opinion regarding Joanne Stallworth. My final recommendations will be communicated back to the requesting physician by way of shared Medical record or letter to requesting physician via US mail. HISTORY OF PRESENT ILLNESS Joanne Stallworth is a 47 year old right handed female with 18 years of formal education, whom we are asked to see for evaluation of cognitive concerns. History was provided by patient and her mother. Additional reports including outside records, imagings were reviewed. 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 She did not lose consciousness. Serological [...] health is: G (more content not included)... [facility] 10-31-2022 Miscellaneous Notes prior authorization submitted via PeerMe Joanne Stallworth Diamond: [id number] - PA Status-Sent to [employer] [facility]-Ubrelvy 100MG tablets Form-[facility] [employer] Electronic PA Form (2016 [place]) Patient sent Corduro message on 10/28 asking for status. Prior Authorization for Medications Requested by ([employer], Pharmacy, Patient Call, Fax) : [facility] Name: [facility] Phone # : [phone] Name of Medication : Ubrelvy Dose : 100 mg tablets If renewal, auth date expiration: NA Prescribing Provider: Last OV: 08/20/2022 with Brown Insurance Provider : Pan / [employer] Is insurance card scanned in, including Rx info? Yes Rx ID number: [id number] Rx BIN: [id number] Rx PCN: [id number] Rx Grp: [id number] Insurance Phone : CoverMyMeds Diamond: NA E-PA? Yes documented in this encounter [facility] 08-22-2022 History of Present illness Narrative Radiology Service Progress Note PATIENT NAME: Joanne Stallworth DATE OF SERVICE: August 22, 2022 TIME: [...] IV DATA: Not applicable SIGNED BY: RT Madhav(Ginny) August 22, 2022 4:23 PM documented in this encounter [facility] 08-20-2022 History of Present illness Narrative Headache [...] (Maxalt) Sumatriptan (Imitrex, Sumavel) Analgesic Hydrocodone/Acetaminophen (Vicodin, Berwyn) Ketorolac (Toradol) Etodolac [facility] [...] Dose Reason for Discontinuation Analgesic Hydrocodone/Acetaminophen (Vicodin, Berwyn) Ketorolac (Toradol) Etodolac Anti-Convulsant Gabapentin (Neurontin) Zonisamide [...] Ibuprofen (Advil, Motrin) Naproxen sodium (Aleve) Froilan Brown DO [facility] [place] [facility] [address] [place] [address] Level of service: Est level 3 (20-29 min). Time spent 25 min on the day of service, which included preparing to see the patient, [id number] patient care, completing clinical documentation, obtaining and/or reviewing separately obtained history, counseling and educating the patient/family/caregiver, and ordering medications, tests, or procedures. Medical Decision Making: Medical Decision Making Level: 1 - N/A cc: Tico Walker MD [address] [place], [place] [id number] documented in this encounter [facility] 01-31-2022 Miscellaneous Notes Received approval via fax from [place] for Nurtec. Effective 01/30/2022 - 01/30/2023 Reference # [id number] Uploaded to chart via OnBase. Completed PA over covermymds: If [employer] has not replied to your request within 24 hours please contact [employer] at [phone]. Joanne Stallworth (Diamond: [id number]) Rx #: [id number] Nurtec 75MG dispersible tablets Form [facility] Commercial Electronic PA Form (2017 [facility]) Wait for Determination, Cira Prescott Images from the original note were not included. [facility] stating [facility] needed on Nurtec 75mg. documented in this encounter [facility] 01-14-2022 History of Past i llness Narrative Problem Noted Date Diagnosed Date Resolved Date Chronic tension-type headache, intractable 01/14/2022 06/26/2023 Chronic daily headache 01/14/202206/26 Migraine without aura 01/16/20142014 documented as of this encounter (statuses as of 07/19/2023) [facility] History of Present illness Narrative* Froilan Brown DO - 01/14/2022 1:00 PM EDT Headache Center [...] (Maxalt) Sumatriptan (Imitrex, Sumavel) Analgesic Hydrocodone/Acetaminophen (Vicodin, Berwyn) Ketorolac (Toradol) Etodolac ---> Preventive Treatment: -Cymbalta [...] Dose Reason for Discontinuation Analgesic Hydrocodone/Acetaminophen (Vicodin, Berwyn) Ketorolac (Toradol) Etodolac Anti-Convulsant Gabapentin (Neurontin) Zonisamide (Zonegram) Anti-Depressant and Antipsychotic Duloxetine (Cymbalta) Fluoxetine (Prozac) Mirtazapine (Remeron) Ziprasidone (Geodon) Nebivolol, Olmesartan Anti-Migraine Rizatriptan (Maxalt) Sumatriptan (Imitrex, Sumavel) Blood Pressure Lisinopril (Zestril) Losartan (Cozaar) Metoprolol (Lopressor,Toprol XL) HCTZ, Benicar Sleep Aids Trazodone (Desyrel) Zolpidem (Ambien) Supplements CoQ10 Magnesium Riboflavin Froilan Brown DO [facility] [place] [facility] [address] [place] [address] Level of service: Est level 3 (20-29 min). Time spent 20 min on the day of service, which included preparing to see the patient, [id number] patient care, completing clinical documentation, obtaining and/or reviewing separately obtained history, counseling and educating the patient/family/caregiver and ordering medications, tests, or procedures. Medical Decision Making cc: Tico Walker MD [address] [place], [place] [phone] [facility] History of Past illness Narrative* Problem Noted Date Resolved Date Migraine without aura 01/16/2014 04/11/2015 documented as of this encounter (statuses as of 01/14/2022) [facility] History of Past illness Narrative* Problem Noted Date Resolved Date Migraine without aura 01/16/2014 04/11/2015 documented as of this encounter (statuses as of 01/31/2022) [facility] History of Past illness Narrative* Problem Noted Date Resolved Date Migraine without aura 01/16/2014 04/11/2015 documented as of this encounter (statuses as of 08/20/2022) [facility] History of Past illness Narrative* Problem Noted Date Resolved Date Migraine without aura 01/16/2014 04/11/2015 documented as of this encounter (statuses as of 09/03/2022) [facility] History of Past illness Narrative* Problem Noted Date Resolved Date Migraine without aura 01/16/2014 04/11/2015 documented as of this encounter (statuses as of 09/22/2022) [facility] History of Past illness Narrative* Problem Noted Date Resolved Date Migraine without aura 01/16/2014 04/11/2015 documented as of this encounter (statuses as of 10/31/2022) [facility] History of Past illness Narrative* Problem Noted Date Resolved Date Migraine without aura 01/16/2014 04/11/2015 documented as of this encounter (statuses as of 02/14/2023) [facility] History of Past illness Narrative* Problem Noted Date Resolved Date Migraine without aura 01/16/2014 04/11/2015 documented as of this encounter (statuses as of 02/16/2023) [facility] History of Past illness Narrative* Problem Noted Date Diagnosed Date Resolved Date Migraine without aura 01/16/20142014 documented as of this encounter (statuses as of 04/14/2023) [facility] History of Past illness Narrative* Problem Noted Date Diagnosed Date Resolved Date Migraine without aura 01/16/20142014 documented as of this encounter (statuses as of 04/14/2023) [facility] Migraine without aura and without status migrainosus, not intractable- Primary Migraine without aura, without mention of intractable migraine without mention of status migrainosus Migraine with aura and without status migrainosus, not intractable Migraine with aura, without mention of intractable migraine without mention of status migrainosus Chronic daily headache Headache Chronic tension-type headache, intractable Chronic tension type headache [facility] Diagnosis Onset Date Resolution Status Chronic diarrhea chronic Fatty liver disease, nonalcoholic chronic Hypertension chronic Morbid obesity chronic Type 2 diabetes mellitus [facility] GERD (gastroesophageal reflux disease) acute Chronic diarrhea chronic Fatty liver disease, nonalcoholic chronic Menstrual irregularity acute Hypertension chronic Morbid obesity chronic Type 2 diabetes mellitus [facility] Work Phone: Evaluation note* Diagnosis Onset Date Resolution Status COVID-19 acute Fatty liver disease, nonalcoholic chronic Liver fibrosis chronic Flu vaccine need acute Anxiety and depression chron ic Hypertension chronic Morbid obesity chronic Type 2 diabetes mellitus [facility] Work Phone: Evaluation note* Diagnosis Onset Date Resolution Status Fatty liver disease, nonalcoholic chronic Liver fibrosis chronic Flu vaccine need acute Anxiety and depression chron ic Hypertension chronic Morbid obesity chronic Type 2 diabetes mellitus [facility] Work Phone: Evaluation note* Diagnosis Migraine with aura and without [...] impairment Memory loss [facility] Diagnosis Abnormal brain MRI- Primary Nonspecific (abnormal) findings on radiological and other examination of skull and head Memory impairment Memory loss Cognitive complaints Other signs and symptoms involving cognition [facility] Diagnosis Memory impairment- Primary Memory loss Cognitive complaints Other signs and symptoms involving cognition Psychophysiologic insomnia Persistent disorder of initiating or maintaining sleep Stress at work Adverse effects of work environment Obstructive sleep apnea Obstructive sleep apnea (adult) (pediatric) documented in this encounter [facility] note* Diagnosis Cognitive disorder- Primary Unspecified persistent mental disorders due to conditions classified elsewhere Migraine aura without headache Migraine with aura, without mention of intractable migraine without mention of status migrainosus ELVIS (obstructive sleep apnea) Obstructive sleep apnea (adult) (pediatric) documented [facility] Diagnosis Cognitive impairment, mild, so stated Mild cognitive impairment, so stated Memory impairment Memory loss documented in this encounter [facility] Chief Complaint and Reason for Visit Chief Complaint 3 M FU 6 wk FU 3 M FU Reason for Visit Chronic diarrhea Fatty liver disease, nonalcoholic Hypertension Morbid obesity Type 2 diabetes mellitus GERD (gastroesophageal reflux disease) Chronic diarrhea Fatty liver disease, nonalcoholic Menstrual irregularity Hypertension Morbid obesity Type 2 diabetes mellitus Chief Complaint E ORDERS COVID SX'S FATTY LIVER 3 Month F/u 4 M FU Reason for Visit COVID-19 Fatty liver disease, nonalcoholic Liver fibrosis Flu vaccine need Anxiety and depression Hypertension Morbid obesity Type 2 diabetes mellitus Chief Complaint FATTY LIVER 3 Month F/u 4 M FU Reason for Visit Fatty liver disease, nonalcoholic Liver fibrosis Flu vaccine need Anxiety and depression Hypertension Morbid obesity Type 2 diabetes mellitus Family History No Family History Records Found Relationship Condition Age at Onset Recorded Date/T pawan Not Specified Sleep apnea Unknown Diabetes mellitus Unknown Depression Unknown Malignant neoplasm Unknown Hypertension Unknown Cerebrovascular accident (CVA) Unknown Advance Directives No Advanced Directives Records Found Advance Directive Response Recorded Date/ Time Living Will Yes November 27, 2021 5:40pm Power of Custom Seamstress Yes November 27 5:40pm Advance Directive Response Recorded Date/ Time Living Will Yes November 27, 2021 4:40pm Power of Custom Seamstress Yes November 27 4:40pm Reason for Referral Specialty Diagnoses / Procedures Referred By Narcisa villanueva Referred To Contact MR IMAGING Diagnoses Cognitive impairment, mild, so stated Memory impairment Procedures MRI BRAIN WO IVCON MRI BRAIN BRAIN STEM W/O CONTRAST MATERIAL Froilan Brown, DO [address] [place] [address] Mr Imaging Referral ID Status Reason Start Date Expiration Date Visits Requested Visits Authorized [id number] Pending Review Auto-Generat ed Referral 08/20/2022 09/19/2023 1 1 Specialty Diagnoses / Procedures Referred By Narcisa villanueva Referred To Contact Neurology Diagnoses Abnormal brain MRI Memory impairment Cognitive complaints Procedures CONSULT TO NEUROLOGY OFFICE/OUTPATIENT NEW HIGH MDM 60-74 MINUTES Froilan Brown, DO [address] [place] [id number] Referral ID Status Reason Start Date Expiration Date Visits Requested Visits Authorized [id number] Authorized PCP Requested Referral 09/21/2022 09/21/2023 1 1 Specialty Diagnoses / Procedures Referred By Contac t Referred To Contact MR IMAGING Diagnoses Cognitive impairment, mild, so stated Memory impairment Procedures MRI BRAIN WO IVCON MRI BRAIN BRAIN STEM W/O CONTRAST MATERIAL Froilan Brown, DO [address] [place] [id number] Mr Imaging [id number] Referral ID Status Reason Start Date Expiration Date V isits Requested Visits Authorized [id number] Closed Auto-Generate d Referral 08/21/2022 09/13/2022 1 1 Summary Purpose Additional Source Comments Source Comments (unrecognize d section and content) In the event this informatio n is protected by the Federal Confidentiality of Alcohol and Drug Abuse Patient Records regulations: The Federal rules restrict any use of the information to criminally investigate or prosecute any alcohol or drug abuse patient.[facility] the event this information is protected by the Federal Confidentiality of Alcohol and Drug Abuse Patient Records regulations: The Federal rules restrict any use of the information to criminally investigate or prosecute any alcohol or drug abuse patient.[facility] Rehabilitation[facility] the event this information is protected by the Federal Confidentiality of Alcohol and Drug Abuse Patient Records regulations: The Federal rules restrict any use of the information to criminally investigate or prosecute any alcohol or drug abuse patient.[facility] Rehabilitation[facility] the event this information is protected by the Federal Confidentiality of Alcohol and Drug Abuse Patient Records regulations: The Federal rules restrict any use of the information to criminally investigate or prosecute any alcohol or drug abuse patient.[facility] RehabilitationIn the event this information is protected by the Federal Confidentiality of Alcohol and Drug Abuse Patient Records regulations: The Federal rules restrict any use of the information to criminally investigate or prosecute any alcohol or drug abuse patient.[facility] Rehabilitation[facility] the event this information is protected by the Federal Confidentiality of Alcohol and Drug Abuse Patient Records regulations: The Federal rules restrict any use of the information to criminally investigate or prosecute any alcohol or drug abuse patient.[facility] RehabilitationIn the event this information is protected by the Federal Confidentiality of Alcohol and Drug Abuse Patient Records regulations: The Federal rules restrict any use of the information to criminally investigate or prosecute any alcohol or drug abuse patient.[facility] RehabilitationIn the event this information is protected by the Federal Confidentiality of Alcohol and Drug Abuse Patient Records regulations: The Federal rules restrict any use of the information to criminally investigate or prosecute any alcohol or drug abuse patient.[facility] RehabilitationIn the event this information is protected by the Federal Confidentiality of Alcohol and Drug Abuse Patient Records regulations: The Federal rules restrict any use of the information to criminally investigate or prosecute any alcohol or drug abuse patient.[facility] RehabilitationIn the event this information is protected by the Federal Confidentiality of Alcohol and Drug Abuse Patient Records regulations: The Federal rules restrict any use of the information to criminally investigate or prosecute any alcohol or drug abuse patient.[facility] RehabilitationIn the event this information is protected by the Federal Confidentiality of Alcohol and Drug Abuse Patient Records regulations: The Federal rules restrict any use of the information to criminally investigate or prosecute any alcohol or drug abuse patient.[facility] Reason for Visit (unrecogniz ed section and content) Reason Comments Migraine Reason Comments Insurance Authorization Nurtec 75mg 05/13 Reason Comments Migraine Reason Comments Insurance Authorization [employer] Reason Comments Consult Specialty Diagnoses / Procedures Referred By Narcisa villanueva Referred To Contact Neurology Diagnoses Abnormal brain MRI Memory impairment Cognitive complaints Procedures CONSULT TO NEUROLOGY OFFICE/OUTPATIENT [facility] HIGH MDM 60-74 MINUTES Froilan Brown DO [address] [place] [address] Referral ID Status Reason Start Date Expiration Date V isits Requested Visits Authorized [id number] Closed PCP Requested Referral 09/21/2022 09/21/2023 1 1 Reason Comments Appointment Lvm for patient to c all so we can get her scheduled for a report visit with Dr Vega Specialty Diagnoses / Procedures Referred By Narcisa villanueva Referred To Contact MR IMAGING Diagnoses Cognitive impairment, mild, so stated Memory impairment Procedures MRI BRAIN WO IVCON MRI BRAIN BRAIN STEM W/O CONTRAST MATERIAL Froilan Brown DO [address] [place] [address] Mr Imaging [place] [id number] Referral ID Status Reason Start Date Expiration Date V isits Requested Visits Authorized [id number] Closed Auto-Generate d Referral 08/21/2022 09/13/2022 1 1 Care Teams (unrecognized sec tion and content) Dianeticist Relationship Specialty Start Date End Date Tico Walker MD PCP - General Family Practice 12/25/11 Dianeticist Relationship Specialty Start Date End Date Tico Walker MD PCP - General Family Practice 12/25/11 Dianeticist Relationship Specialty Start Date End Date Tico Walker MD PCP - General Family Medicine 12/25/11 Dianeticist Relationship Specialty Start Date End Date Tico Walker MD PCP - General Family Medicine 12/25/11 Dianeticist Relationship Specialty Start Date End Date Tico Walker MD PCP - General Family Medicine 12/25/11 Dianeticist Relationship Specialty Start Date End Date Tico Walker MD PCP - General Family Medicine 12/25/11 10/09/22 Goals (unrecognized section and content) Goals may be documented in a n alternate sectionGoals may be documented in an alternate sectionGoals may be documented in an alternate sectionGoals may be documented in an alternate section INFORMATION SOURCE (unrecogn ized section and content) DATE CREATED AUTHOR 02/14/2024 [facility] DATE CREATED AUTHOR AUTHOR'S CELIO CANAS 04/30/2025 [facility] FOR RECORDS PERTAINING TO PATIENTS WHO ARE [...] BE BASED ON THE PRIMARY CLINICAL RECORDS. [employer] provides no warranty or guarantee of the accuracy or completeness of information in this document.
[2025-05-13 11:38] LABS: AST(SGOT) 19 U/L (<=31); Alanine Aminotransfer ALT/SGPT 19 U/L (<=34); Anion Gap 15 (5-15); BUN 14 mg/dL (4-19); BUN/Creat Ratio 22.3 RATIO (10-20); Calcium,Total 9.5 mg/dL (7.6-11.0); Carbon Dioxide 24.5 mmol/L (21.0-32.0); Chloride 99 mmol/L (98-108); Cholesterol 179 mg/dL (<=200); Creatinine, Urine (random) 79.00 mg/dL (28.00-217.00); Glucose 157 mg/dL (70-99); Low Density Lipoprotein Calc. 80 mg/dL; Microalbumin,Random Urine < 12.0 mg/L (<20 mg/L); Potassium 4.0 mmol/L (3.3-5.1); Triglycerides 283 mg/dL; Very Low Density Lipoprotein 57 mg/dL (5-40); cholesterol:hdl ratio screen 4.19
== END | disposition home or self-care (01) ==
LOC: LAB 10:22
PROVIDERS: PCP Internal Medicine; Referring Provider Internal Medicine Endocrinology, Diabetes & Metabolism; Visit Provider Internal Medicine Endocrinology, Diabetes & Metabolism
DX: E11.65 Type 2 diabetes mellitus with hyperglycemia (principal); E78.2 Mixed hyperlipidemia; E78.1 Pure hyperglyceridemia
CPT/HCPCS: 80048; 80061; 82043; 82570; 83036; 84450; 84460

== ENCOUNTER → 2025-07-01 | Outpatient (CLI) | payer OTHER, SELFPAY ==
--- OUTSIDE RECORDS SUMMARY | 2025-07-01 08:27 | XMS RPT_ITS | CCD ---
Author Organization [facility] CliniSyil Care Team Providers Care Supply Aide Name Role Phone Tico Walker MD Primary Care Provider Dr. Rogers Bellamy Primary Care Provider [phone] Dr. Rogers Bellamy Attending Provider [phone] Dr. [...] [phone] Tico Walker MD Primary Care Provider [phone] Tico Walker MD Primary Care Provider Unavailable Primary Care Provider UnavailTico Mata MD Primary Care Provider TAD ANDERSEN Attending Unavailable GARY, SADIE Referring Unavailable GARY, SADIE Attending Unavailable FROILAN BROWN P Referring Unavailable GARY, SADIE Referring Unavailable GARY, SADIE Attending Unavailable FROILAN BROWN P Attending Unavailable Rogers Bellamy Primary Care Unavailable Velma Bellamybe Referring Unavailable Oleghe, Efewongbe Attending Unavailable Oleghe, Efewongbe Attending Unavailable Oleghe, Efewongbe Referring Unavailable Oleghe, Efewongbe Primary Care Unavailable Oleghe, Efewongbe Primary Care Unavailable Maciel Alcaraz Attending Unavailable Anna Huang Attending Unavailable Anna Huang Referring Unavailable Oleghe, Efewongbe Primary Care Unavailable Oleghe, Efewongbe Referring Unavailable Oleghe, Efewongbe Primary Care Unavailable Oleghe, Efewongbe Attending Unavailable Oleghe, Efewongbe Primary Care Unavailable Marino Trotter Attending Unavailable Oleghe, Efewongbe Referring Unavailable Anna Huang Referring Unavailable Anna Huang Attending Unavailable Oleghe, Efewongbe Primary Care Unavailable Oleghe, Efewongbe Primary Care Unavailable Calista Garcia Attending Unavailable Oleghe, Efewongbe Referring Unavailable Oleghe, Efewongbe Primary Care Unavailable Oleghe, Efewongbe Attending Unavailable Anna Huang Consulting Unavailable Oleghe, Efewongbe Attending Unavailable Oleghe, Efewongbe Referring Unavailable Oleghe, Efewongbe Primary Care Unavailable SIMI SAHU Attending Unavailable SIMI SAHU Referring Unavailable Oleghe, Efewongbe Primary Care Unavailable Anna Huang Attending Unavailable Anna Huang Referring Unavailable Oleghe, Efewongbe Primary Care Unavailable Oleghe, Efewongbe Primary Care Unavailable Beatrice Martin Attending Unavailable Beatrice Martin Referring Unavailable April Schmidt Attending Unavailable April Schmidt Referring Unavailable Oleghe, Efewongbe Primary Care Unavailable Anna Huang Attending Unavailable Anna Huang Referring Unavailable Oleghe, Efewongbe Primary Care Unavailable Oleghe, Efewongbe Primary Care Unavailable Beatrice Martin Attending Unavailable Beatrice Martin Referring Unavailable Oleghe, Efewongbe Attending Unavailable Oleghe, Efewongbe Referring Unavailable Oleghe, Efewongbe Primary Care Unavailable Oleghe, Efewongbe Referring Unavailable Oleghe, Efewongbe Primary Care Unavailable Beatrice Martin Attending Unavailable Oleghe, Efewongbe Primary Care Unavailable Maciel Alcaraz Attending Unavailable Maciel Alcaraz Attending Unavailable Oleghe, Efewongbe Primary Care Unavailable Oleghe, Efewongbe Primary Care Unavailable Friend, Marino Attending Unavailable Friend, Marino Referring Unavailable Friend, Marino Attending Unavailable Oleghe, Efewongbe Referring Unavailable Oleghe, Efewongbe Primary Care Unavailable April Schmidt Attending Unavailable April Schmidt Referring Unavailable Oleghe, Efewongbe Primary Care Unavailable Oleghe, Efewongbe Primary Care Unavailable Maciel Alcaraz Attending Unavailable Friend, Marino Attending Unavailable Oleghe, Efewongbe Referring Unavailable Oleghe, Efewongbe Primary Care Unavailable Fernando Tavares Attending Unavailable Oleghe, Efewongbe Referring Unavailable Oleghe, Efewongbe Primary Care Unavailable Friend, Marino Attending Unavailable Friend, Marino Consulting Unavailable Oleghe, Efewongbe Referring Unavailable Oleghe, Efewongbe Primary Care Unavailable Mcaiel Alcaraz Attending Unavailable Oleghe, Efewongbe Primary Care Unavailable Oleghe, Efewongbe Primary Care Unavailable Josselyn Javier Attending Unavailable Josselyn Javier Referring Unavailable Oleghe, Efewongbe Primary Care Unavailable Friend, Marino Attending Unavailable Friend, Marino Referring Unavailable Allergies Allergy Classification Reported Allergen(s) Allergy Type Date of Onset Reaction(s) Facility (16 sources) Azithromycin; Translations: [AZITHROMYCIN] Drug Allergy 6 [facility] Work Phone: (16 sources) diazePAM; Translations: [DIAZEPAM] Drug Allergy 2 Other: See Comments [facility] (16 sources) Lisinopril; Translations: [LISINOPRIL] Drug Allergy 9 Other [facility] Work Phone: (16 sources) predniSONE; Translations: [PREDNISONE] Drug Allergy 2 Other: See Comments [facility] (1 source) paper tape Allergy to substance [address] [facility] Work Phone: (4 sources) water proof tape Allergy to substance 2 [facility] Work Phone: (4 sources) Adhesive Tape; Translations: [adhesive tape] Allergy to substance [address] [facility] Repository (1 source) Adhesive agent Drug allergy (disorder) [address] [facility] Repository (1 source) Azithromycin Drug Allergy [address] [facility] Repository (1 source) diazePAM Drug Allergy [address] [facility] Repository (1 source) Lisinopril Drug Allergy [address] [facility] Repository (1 source) predniSONE Drug Allergy [address] [facility] Repository Medications Current Medications Medication Drug [...] Start: 09-03-2021 take 1 tablet by addi three times daily Cranberry Fruit Concentrate (Azo [...] 0 02/12/2009 Active take 1 capsule by mo [facility] every twenty-four hours as needed DULoxetine [...] 03, 2021 2:53pm take 2 tablets by mo [facility] twice daily metFORMIN (GLUCOPHAGE) 500 mg tablet Take 500 mg by mouth twice daily. 2 tabs twice daily 0 Active take 1 tablet by addi four times daily metFORMIN (GLUCOPHAGE) 500 mg [...] Take 25 mg by mouth twice daily. [place]-3 Fatty Acids (Fish Oil Concentrate) 1,000 mg capsule (4 sources) Start: 10-18-2018 take 1 capsule by mouth once daily [place]-3 Fatty Acids (Fish Oil Concentrate) 1,000 mg capsule Active 1000 MG PO DAILY October 18, 2018 12:00am Start: 10-18-2018 take 1 capsule by mo [facility] once daily [place]-3 Fatty Acids (Fish Oil Concentrate) 1,000 mg [...] BEDTIME October 18, 2018 1:00am vitamin a 53906 unt oral tablet (4 sources) Vitamin A Start: 10-18-2018 take 23454 [IU] by mouth once daily Vitamin A Palmitate Active 05131 UNIT PO DAILY October 18, 2018 12:00am [...] Active Start: 07-10-2022 take 1 capsule by mo uth twice daily Celecoxib (Celebrex) 200 mg capsule Active 200 MG PO TWICE A DAY July 09, 2022 11:00pm Comment on above: TAKE 1 CAPSULE BY MO UTH TWICE A DAY NEEDED FOR 30 DAYS [...] tablet Start: 03-05-2022 [facility] Empagliflozin (Jardiance) 10 mg tablet [...] take 0.25 mg by mouth at bedti ri Ropinirole Active 0.25 MG PO AT BEDTIME [...] conditions (not mental disorders or infectious disease) (8 sources) Magnetic resonance imaging of brain abnormal; [...] Translations: [Cellulitis of left upper limb] Episodic Unclassified (2 sources) Hepatic fibrosis, unspecified; Translations: [Hepatic fibrosis, unspecified] Onset: 5 Viral infection (5 sources) Disease caused by [...] Test Name Value Interpretation Reference Range Facility MR/BPon 06-20-2025 MR/BMSGhulamBP [place] [id number] [facility], [address] [place] [address] OFFICE VISIT Date of Service: 06/20/25 MR#: [id number] Acct: [id number] Name: JOANNE STALLWORTH Rep #: [id number] : 1975 Provider: Dr. Maciel Shabazz se, DO Age/Sex: 49/F Location: [facility] Status: Signed Intake Vital Signs 04/17/25 15:43 06/20/25 15:52 Height 5 ft 11 in 5 ft 11 in Weight: 292 lb BMI 40.7 BP 123/84 H Blood Pressure Location Lt brachial Position Sitting Respiration 16 Pulse 78 Pulse Source Monitor BP Intake Visit Reasons: 2 M FU Accompanied by: Self Allergies adhesive tape (paper tape) Allergy (Unknown, Verified 06/20/25 15:55) Other adhesive Allergy (Verified 06/20/25 15:55) Hives azithromycin (From Zithromax) Allergy (Verified 06/20/25 15:55) Hives diazepam (From Valium) Adverse Reaction (Verified 06/20/25 15:55) Other lisinopril Adverse Reaction (Verified 06/20/25 15:55) Cough prednisone Adverse Reaction (Verified 06/20/25 15:55) Flushing Medications ???Medication ???Instructions ???Recorded ???Confirmed ???Type rizatriptan 10 mg disintegrating 10 mg PO PRN PRN Migraine Symptoms 07/01/16 06/20/25 History tablet biotin 1 mg capsule 1 mg PO DAILY 10/18/18 06/20/25 Hi story cholecalciferol (vitamin D3) 25 2,000 unit PO DAILY 10/18/1806/20 History mcg (1,000 unit) capsule magnesium 250 mg tablet 250 mg PO DAILY 10/18/18 06/20/25 History ascorbic acid (vitamin C) 500 mg 500 mg PO DAILY 09/03/21 06/20/25 History capsule blood sugar diagnostic (Accu-Chek #10 ea 09/03/21 06/20/25 History Guide test strips) cranberry fruit concentrate 250 mg 250 mg PO DAILY 09/03/21 5 History chewable tablet (Azo Cranberry) lancets (Accu-Chek Fastclix Lancet #100 ea 09/03/21 06/20/25 Histor y Drum) vitamin E 268 mg (400 unit) capsule 800 unit PO DAILY #60 caps 10/1606/20/25 Rx CoQ10 100 mg PO 1XD 03/05/22 06/20/25 Hi story acetaminophen 650 mg 650 mg PO Q12H PRN pain 07/10/22 1 History tablet,extended release (Tylenol Arthritis Pain) celecoxib 200 mg capsule (Celebrex) 200 mg PO BID 07/10/22 06/20/25 History ropinirole 0.25 mg tablet 0.25 mg PO QHS #30 tabs 09/29/22 1 Rx multivitamin 1 tab PO DAILY 03/02/24 06/20/25 H istory cyanocobalamin (vitamin B-12) 50 50 mcg PO DAILY 09/08/24 06/20/25 History mcg tablet (Vitamin B-12) blood-glucose sensor (FreeStyle #1 ea 09/12/24 06/20/25 History Gavin 3 Plus Sensor device) metformin 500 mg tablet,extended 1,000 mg PO BID 01/18/25 06/20/25 History release 24hr (osmotic) omega-3 fatty acids 1,000 mg 1,000 mg PO DAILY 01/18/25 5 History capsule vitamin A 2,400 mcg capsule 2,400 mcg PO DAILY 01/18/25 History norethindrone (contraceptive) 0.35 See Rx Instructions .Route 02/1306/20/25 Rx mg tablet .COMPLEX #84 tabs ursodiol 250 mg tablet 250 mg PO DAILY #30 tabs 03/28/25 06/20/25 Rx hydrochlorothiazide 25 mg tablet 25 mg PO QAM #90 TABLETS 04/17/25 06/20/25 Rx metoprolol tartrate 50 mg tablet 50 mg PO BID 3 months #180 TABLETS 04/17/25 06/20/25 Rx glimepiride 2 mg tablet 2 mg PO QDAY 05/22/25 06/20/25 His tory fenofibrate 54 mg tablet 54 mg PO QDAY #90 tabs 05/29/25 Rx losartan 100 mg tablet 100 mg PO DAILY #90 tabs 05/29/25 06/20/25 Rx potassium chloride 20 mEq 20 meq PO DAILY #90 TABLETS 06/20/25 Rx tablet,extended release doxepin 10 mg capsule See Rx Instructions .Route 5 06/20/25 Rx .COMPLEX #90 caps duloxetine 30 mg capsule,delayed See Rx Instructions .Route 5 06/20/25 Rx release .COMPLEX #90 caps duloxetine 60 mg capsule,delayed See Rx Instructions .Route 5 06/20/25 Rx release .COMPLEX #90 caps hydroxyzine HCl 25 mg tablet 25 mg PO BID PRN anxiety #60 tabs 06/20/25 06/20/25 Rx rosuvastatin 5 mg tablet 5 mg PO QDAY 06/20/25 06/20/25 His tory tirzepatide 5 mg/0.5 mL mg subcut QWEEK 06/20/25 06/20/25 History subcutaneous pen injector (Mounjaro) [facility] Medical History (Updated 05/22/25 @ 09:[address] Rogers Bellamy MD) Restless leg syndrome Hypertriglyceridemia Generalized anxiety disorder Major depressive disorder, [...] 2 diabetes mellitus Chronic diarrhea History of br (more content not included)... Normal [facility] Gastroenterology Visit Repor ton 06-02-2025 Gastroenterology Visit Report [facility]astroenterology [address] [place] [address] OFFICE VISIT Date of Service: 06/02/25 MR#: [id number] Acct: [id number] Name: JOANNE STALLOWRTH Rep #: [id number] : 1975 Provider: Marino Trotter DO Age/Sex: 49/F Location: [facility] Status: Signed Intake Vital Signs 12/05/24 09:52 05/22/25 08:29 Height 5 ft 10 in 5 ft 11 in Intake Visit Reasons: 6 M FU- SIMMONS/Fatty Liver Disease Allergies adhesive tape (paper tape) Allergy (Unknown, Verified 05/22/25 08:27) Other adhesive Allergy (Verified 05/22/25 08:27) Hives azithromycin (From Zithromax) Allergy (Verified 05/22/25 08:27) Hives diazepam (From Valium) Adverse Reaction (Verified 05/22/25 08:27) Other lisinopril Adverse Reaction (Verified 05/22/25 08:27) Cough prednisone Adverse Reaction (Verified 05/22/25 08:27) Flushing Medications ???Medication ???Instructions ???Recorded ???Confirmed ???Type rizatriptan 10 mg disintegrating 10 mg PO PRN PRN Migraine Symptoms 07/01/16 06/02/25 History tablet biotin 1 mg capsule 1 mg PO DAILY 10/18/18 06/02/25 Hi story cholecalciferol (vitamin D3) 25 2,000 unit PO DAILY 10/18/1806/02 History mcg (1,000 unit) capsule magnesium 250 mg tablet 250 mg PO DAILY 10/18/18 06/02/25 History ascorbic acid (vitamin C) 500 mg 500 mg PO DAILY 09/03/21 06/02/25 History capsule blood sugar diagnostic (Accu-Chek #10 ea 09/03/21 06/02/25 History Guide test strips) cranberry fruit concentrate 250 mg 250 mg PO DAILY 09/03/21 5 History chewable tablet (Azo Cranberry) lancets (Accu-Chek Fastclix Lancet #100 ea 09/03/21 06/02/25 Histor y Drum) vitamin E 268 mg (400 unit) capsule 800 unit PO DAILY #60 caps 10/1606/02/25 Rx CoQ10 100 mg PO 1XD 03/05/22 06/02/25 Hi story acetaminophen 650 mg 650 mg PO Q12H PRN pain 07/10/22 0 06/02/25 History tablet,extended release (Tylenol Arthritis Pain) celecoxib 200 mg capsule (Celebrex) 200 mg PO BID 07/10/22 06/02/25 History ropinirole 0.25 mg tablet 0.25 mg PO QHS #30 tabs 09/29/22 0 06/02/25 Rx multivitamin 1 tab PO DAILY 03/02/24 06/02/25 H istory cyanocobalamin (vitamin B-12) 50 50 mcg PO DAILY 09/08/24 06/02/25 History mcg tablet (Vitamin B-12) blood-glucose sensor (FreeStyle #1 ea 09/12/24 06/02/25 History Gavin 3 Plus Sensor device) doxepin 10 mg capsule See Rx Instructions .Route 5 06/02/25 Rx .COMPLEX #90 caps duloxetine 30 mg capsule,delayed See Rx Instructions .Route 5 06/02/25 Rx release .COMPLEX #90 caps duloxetine 60 mg capsule,delayed See Rx Instructions .Route 5 06/02/25 Rx release .COMPLEX #90 caps hydroxyzine HCl 25 mg tablet 25 mg PO BID PRN anxiety #60 tabs 12/05/24 06/02/25 Rx metformin 500 mg tablet,extended 1,000 mg PO BID 01/18/25 06/02/25 History release 24hr (osmotic) omega-3 fatty acids 1,000 mg 1,000 mg PO DAILY 01/18/25 5 History capsule vitamin A 2,400 mcg capsule 2,400 mcg PO DAILY 01/18/25 History norethindrone (contraceptive) 0.35 See Rx Instructions .Route 02/1306/02/25 Rx mg tablet .COMPLEX #84 tabs ursodiol 250 mg tablet 250 mg PO DAILY #30 tabs 03/28/25 06/02/25 Rx hydrochlorothiazide 25 mg tablet 25 mg PO QAM #90 TABLETS 04/17/25 06/02/25 Rx metoprolol tartrate 50 mg tablet 50 mg PO BID 3 months #180 TABLETS 04/17/25 06/02/25 Rx tirzepatide 2.5 mg/0.5 mL mg subcut QWEEK 04/17/25 06/02/25 History subcutaneous pen injector (Osman) glimepiride 2 mg tablet 2 mg PO QDAY 05/22/25 06/02/25 His tory fenofibrate 54 mg tablet 54 mg PO QDAY #90 tabs 05/29/25 Rx losartan 100 mg tablet 100 mg PO DAILY #90 tabs 05/29/25 06/02/25 Rx potassium chloride 20 mEq 20 meq PO DAILY #90 TABLETS 06/02/25 Rx tablet,extended release [facility] Medical History (Updated 05/22/25 @ 09:[address] Rogers Bellamy MD) Restless leg syndrome Hypertriglyceridemia Generalized anxiety disorder Major depressive disorder, [...] balancing Migraines Knee pain Severe headache Anemia D (more content not included)... Normal [facility] Internal Medicine Office Vis iton 05-22-2025 Internal Medicine Office Visit [facility] [address] [place] [address] [place] [address] OFFICE VISIT Date of Service: 05/22/25 MR#: [id number] Acct: [id number] Name: JOANNE STALLWORTH Rep #: [id number] : 1975 Provider: Dr. Rogers draper MD Age/Sex: 49/F Location: [facility] Status: Signed Intake Vital Signs 01/18/25 09:52 04/17/25 15:43 05/22/25 08:29 Height 5 ft 11 in 5 ft 11 in 5 ft 11 in Weight: 300 lb BMI 41.8 BP 122/68 H Blood Pressure Location Rt brachial Position Sitting Respiration 18 Pulse 72 Pulse Source Monitor Temp 96.8 F L Temp Source Temporal Pulse Oximetry (%) 99 Oxygen Delivery Method room air Intake Visit Reasons: 4 m fu Chief Complaint: 4 m fu Is patient in pain?: No Allergies adhesive tape (paper tape) Allergy (Unknown, Verified 05/22/25 08:27) Other adhesive Allergy (Verified 05/22/25 08:27) Hives azithromycin (From Zithromax) Allergy (Verified 05/22/25 08:27) Hives diazepam (From Valium) Adverse Reaction (Verified 05/22/25 08:27) Other lisinopril Adverse Reaction (Verified 05/22/25 08:27) Cough prednisone Adverse Reaction (Verified 05/22/25 08:27) Flushing Medications ???Medication ???Instructions ???Recorded ???Confirmed ???Type rizatriptan 10 mg disintegrating 10 mg PO PRN PRN Migraine Symptoms 07/01/16 05/22/25 History tablet biotin 1 mg capsule 1 mg PO DAILY 10/18/18 05/22/25 Hi story cholecalciferol (vitamin D3) 25 2,000 unit PO DAILY 10/18/1805/22 History mcg (1,000 unit) capsule magnesium 250 mg tablet 250 mg PO DAILY 10/18/18 05/22/25 History ascorbic acid (vitamin C) 500 mg 500 mg PO DAILY 09/03/21 05/22/25 History capsule blood sugar diagnostic (Accu-Chek #10 ea 09/03/21 05/22/25 History Guide test strips) cranberry fruit concentrate 250 mg 250 mg PO DAILY 09/03/21 5 History chewable tablet (Azo Cranberry) lancets (Accu-Chek Fastclix Lancet #100 ea 09/03/21 05/22/25 Histor y Drum) vitamin E 268 mg (400 unit) capsule 800 unit PO DAILY #60 caps 10/1605/22/25 Rx CoQ10 100 mg PO 1XD 03/05/22 05/22/25 Hi story acetaminophen 650 mg 650 mg PO Q12H PRN pain 07/10/22 0 05/22/25 History tablet,extended release (Tylenol Arthritis Pain) celecoxib 200 mg capsule (Celebrex) 200 mg PO BID 07/10/22 05/22/25 History ropinirole 0.25 mg tablet 0.25 mg PO QHS #30 tabs 09/29/22 0 05/22/25 Rx multivitamin 1 tab PO DAILY 03/02/24 05/22/25 H istory losartan 100 mg tablet 100 mg PO DAILY #90 tabs 07/20/24 05/22/25 Rx cyanocobalamin (vitamin B-12) 50 50 mcg PO DAILY 09/08/24 05/22/25 History mcg tablet (Vitamin B-12) blood-glucose sensor (FreeStyle #1 ea 09/12/24 05/22/25 History Gavin 3 Plus Sensor device) doxepin 10 mg capsule See Rx Instructions .Route 5 05/22/25 Rx .COMPLEX #90 caps duloxetine 30 mg capsule,delayed See Rx Instructions .Route 5 05/22/25 Rx release .COMPLEX #90 caps duloxetine 60 mg capsule,delayed See Rx Instructions .Route 5 05/22/25 Rx release .COMPLEX #90 caps hydroxyzine HCl 25 mg tablet 25 mg PO BID PRN anxiety #60 tabs 12/05/24 05/22/25 Rx potassium chloride 20 mEq 20 meq PO DAILY #60 TABLETS 05/22/25 Rx tablet,extended release metformin 500 mg tablet,extended 1,000 mg PO BID 01/18/25 05/22/25 History release 24hr (osmotic) omega-3 fatty acids 1,000 mg 1,000 mg PO DAILY 01/18/25 5 History capsule vitamin A 2,400 mcg capsule 2,400 mcg PO DAILY 01/18/25 History fenofibrate 54 mg tablet 54 mg PO QDAY #60 tabs 01/24/25 Rx norethindrone (contraceptive) 0.35 See Rx Instructions .Route 02/1305/22/25 Rx mg tablet .COMPLEX #84 tabs ursodiol 250 mg tablet 250 mg PO DAILY #30 tabs 03/28/25 05/22/25 Rx hydrochlorothiazide 25 mg tablet 25 mg PO QAM #90 TABLETS 04/17/25 05/22/25 Rx metoprolol tartrate 50 mg tablet 50 mg PO BID 3 months #180 TABLETS 04/17/25 05/22/25 Rx tirzepatide 2.5 mg/0.5 mL mg subcut QWEEK 04/17/25 05/22/25 History subcutaneous pen injector (Osman) glimepiride 2 mg tablet 2 mg PO QDAY 05/22/25 05/22/25 His tory [facility] Medical History (Updated 05/22/25 @ 09:[address] Rogers Bellamy MD) Restless leg syndrome Hypertriglyceridemia Generalized anxiety disorder Major depressive disorder, recurrent, moderate Wears glasses Injury of head and neck Non-smoker BiPAP (biphasic positive airway pressure) dependence Shortness of breath on exertion History of stress test Health care maintenance Colon cancer screening Hypokalemia Insomnia Psoriasis Acute streptococcal pharyngitis Flu vaccine need Menstrual irregularity Fatty liver disease, nonalcoholic Osteoarthritis Morbid obesity ELVIS (obstructive sleep apnea) Type 2 di (more content not included)... Normal [facility] AST(SGOT)on 05-13-2025 AST [Catalytic activity/Vol] 19 U/L Normal <=[address] [facility] Comment on above: Performed By: #### L 501.4100, L501.9985, L501.4405, L500.2500, L502.0250, L500.4100 ####[facility] [address] [place], [address] Alanine Aminotransferas (SGP T)on 05-13-2025 ALT [Catalytic activity/Vol] 19 U/L Normal <=[address] [facility] Comment on above: Performed By: #### L 501.4100, L501.9985, L501.4405, L500.2500, L502.0250, L500.4100 ####[facility] [address] [place], [place], [id number] Basic Metabolic Profile (BMP )on 05-13-2025 BUN/CRE 22.3 RATIO High 10-[address] [facility] Comment on above: Performed By: #### L 501.4100, L501.9985, L501.4405, L500.2500, L502.0250, L500.4100 ####[facility] [address] [place], [place], [id number]) Calcium [Mass/Vol] 9.5 mg/dL Normal 7.6-11.0 [facility] Comment on above: Performed By: #### L 501.4100, L501.9985, L501.4405, L500.2500, L502.0250, L500.4100 ####[facility] [address] [place], [address] Chloride [Moles/Vol] 99 mmol/L Normal 98-108 [facility] Comment on above: Performed By: #### L 501.4100, L501.9985, L501.4405, L500.2500, L502.0250, L500.4100 ####[facility] [address] [place], [address] CO2 [Moles/Vol] 24.5 mmol/L Normal 21.0-32.[address] [facility] Comment on above: Performed By: #### L 501.4100, L501.9985, L501.4405, L500.2500, L502.0250, L500.4100 ####[facility] [address] [place], [address] Creatinine [Mass/Vol] 0.61 mg/dL Low 0.70-1.20 [facility] Comment on above: Performed By: #### L 501.4100, L501.9985, L501.4405, L500.2500, L502.0250, L500.4100 ####[facility] [address] [place], [address] GAP 15 Normal 5-[address] [facility] Comment on above: Performed By: #### L 501.4100, L501.9985, L501.4405, L500.2500, L502.0250, L500.4100 ####[facility] [address] [place], [address] GFR/1.73 sq M.predicted among non-blacks MDRD (S/P/Bld) [Vol rate/Area] 111 mL/min/{1.73_m2} Normal >[address] [facility] Comment on above: Result Comment: mL/m in/1.73m2 CKD-EPI Creatinine Equation (2020) Performed By: #### L 501.4100, L501.9985, L501.4405, L500.2500, L502.0250, L500.4100 ####[facility] [address] [place], [address] Glucose [Mass/Vol] 157 mg/dL High 70-99 [facility] Comment on above: Performed By: #### L 501.4100, L501.9985, L501.4405, L500.2500, L502.0250, L500.4100 ####[facility] [address] [place], [address] Potassium [Moles/Vol] 4.0 mmol/L Normal 3.3-5.1 [facility] Comment on above: Performed By: #### L 501.4100, L501.9985, L501.4405, L500.2500, L502.0250, L500.4100 ####[facility] [address] [place], [address] Sodium [Moles/Vol] 138 mmol/L Normal 133-145 [facility] Comment on above: Performed By: #### L 501.4100, L501.9985, L501.4405, L500.2500, L502.0250, L500.4100 ####[facility] [address] [place], [address] Urea nitrogen [Mass/Vol] 14 mg/dL Normal 4-[address] [facility] Comment on above: Performed By: #### L 501.4100, L501.9985, L501.4405, L500.2500, L502.0250, L500.4100 ####[facility] [address] [place], [address] Hemoglobin A1con 05-13-2025 HbA1c (Bld) [Mass fraction] 6.7 % High <=5.[address] [facility] Comment on above: Result Comment: Norm al < 5.7 % Prediabetic 5.7 - 6.4 % Diabetic >or= 6.5 % Please note range changes. Performed By: #### L 501.4100, L501.9985, L501.4405, L500.2500, L502.0250, L500.4100 ####[facility] [address] [place], [address] Lipid Profileon 05-13-2025 CHOL:HDL 4.[address] [facility] Comment on above: Performed By: #### L 501.4100, L501.9985, L501.4405, L500.2500, L502.0250, L500.4100 ####[facility] [address] [place], [address] Cholesterol [Mass/Vol] 179 mg/dL Normal <=200 [facility] Comment on above: Result Comment: Chol esterol level, Desirable <200 mg/dL Borderline high cholesterol 200-239 mg/dL High cholesterol >=240 mg/dL Recommendations of the NCEP Adult Treatment Panel for the following risk-cutoff thresholds for the [place] population. Performed By: #### L 501.4100, L501.9985, L501.4405, L500.2500, L502.0250, L500.4100 ####[facility] [address] [place], [place], [address] Cholesterol in HDL [Mass/Vol] 43 mg/dL Normal [facility] Comment on above: Result Comment: Ena onal Cholesterol Education Program (NCEP) guidelines: <40 mg/dL: Low HDL-cholesterol (major risk factor for CHD) >= 60 mg/dL: High HDL-cholesterol (negative risk factor for CHD) HDL-cholesterol is affected by a number of factors, e.g. smoking, exercise, hormones, sex and age. Performed By: #### L 501.4100, L501.9985, L501.4405, L500.2500, L502.0250, L500.4100 ####[facility] [address] [place], [place], [address] Cholesterol in LDL [Mass/Vol] 80 mg/dL Normal [facility] Comment on above: Result Comment: Bord bcstsr=382-731 mg/dL Higher Mspc=787 mg/dL or greater Friedwald Equation for LDL-C Performed By: #### L 501.4100, L501.9985, L501.4405, L500.2500, L502.0250, L500.4100 ####[facility] [address] [place], [place], [address] Cholesterol in VLDL [Mass/Vol] 57 mg/dL High 5-[address] [facility] Comment on above: Performed By: #### L 501.4100, L501.9985, L501.4405, L500.2500, L502.0250, L500.4100 ####[facility] [address] [place], [address] Triglyceride [Mass/Vol] 283 mg/dL High [facility] Comment on above: Result Comment: The drugs N-Acetylcysteine and Metamizole may falsely depress this assay. Normal range: <150 mg/dL Borderline High: 150-199 mg/dL High: 200-499 mg/dL Very High: >500 mg/dL Performed By: #### L 501.4100, L501.9985, L501.4405, L500.2500, L502.0250, L500.4100 ####[facility] [address] [place], [place], [address] Microalb:Creat Ratio,Random URon 05-13-2025 Creatinine [Mass/Vol] 79.00 mg/dL Normal 28.00-217.[address] [facility] Comment on above: Performed By: #### L 501.4100, L501.9985, L501.4405, L500.2500, L502.0250, L500.4100 ####[facility] [address] [place], [address] MALB:CREAT UNABLE TO CALCULATE Normal <30 mg/g CRE [facility] Comment on above: Performed By: #### L 501.4100, L501.9985, L501.4405, L500.2500, L502.0250, L500.4100 ####[facility] [address] [place], [place], [address] MICROALBUMIN,UR < 12.0 Normal <20 mg/L [facility] Comment on above: Performed By: #### L 501.4100, L501.9985, L501.4405, L500.2500, L502.0250, L500.4100 ####[facility] [address] [place], [place], [address] MR/BMS.BPon 04-17-2025 MR/BMS.BP [address], [address] [place] [id number] OFFICE VISIT Date of Service: 04/17/25 MR#: [id number] Acct: [id number] Name: JOANNE STALLWORTH Rep #: [id number] : 1975 Provider: Dr. Maciel Shabazz se, Age/Sex: 49/F Location: [facility].BP Status: Signed Intake Vital Signs 02/13/25 10:35 [...] QWEEK 04/17/25 04/17/25 History subcutaneous pen injector (Mounjaro) [facility] Medical History Hypertriglyceridemia Generalized anxiety disorder Major [...] apnea Histor (more content not included)... Normal [facility] PAP IG HPV APTIMA 16/18,45on 04-17-2025 ADEQ Comment Normal . [facility] Comment on above: Order Comment: Speci men Comment: [id number] Specimen Comment: No. of containers..01 ThinPrep Vial Result Comment: Sati sfactory for evaluation. No endocervical component is identified. Performed By: #### L 7400.0280 #### [facility] [address] [place], [place], [address] COMM . Normal . [facility] Comment on above: Order Comment: Speci men Comment: [id number] Specimen Comment: No. of containers..01 ThinPrep Vial Performed By: #### L 7400.0280 #### [facility] [address] [place], [address] COMMENT Comment Normal . [facility] Comment on above: Order Comment: Speci men Comment: [id number] Specimen Comment: No. of containers..01 ThinPrep Vial Result Comment: This liquid based ThinPrep(R) pap test was screened with the use of an image guided system. Performed By: #### L 7400.0280 #### [facility] [address] [place], [address] DIAG Comment Normal . [facility] Comment on above: Order Comment: Speci men Comment: [id number] Specimen Comment: No. of containers..01 ThinPrep Vial Result Comment: NEGA TIVE FOR INTRAEPITHELIAL LESION OR MALIGNANCY. Performed By: #### L 7400.0280 #### [facility] [address] [place], [address] HPV APTIMA, HR Negative Normal Negative [facility] Comment on above: Order Comment: Speci men Comment: [id number] Specimen Comment: No. of containers..01 ThinPrep Vial Result Comment: This nucleic acid amplification test detects fourteen high- risk HPV types (16,18,31,33,35,39,45,51,52,56,58,59,66,68) without differentiation. Performed By: #### L 7400.0280 #### [facility] [address] [place], [address] HPV Lbua Rfx Comment Normal . [facility] Comment on above: Order Comment: Speci men Comment: [id number] Specimen Comment: No. of containers..01 ThinPrep Vial Result Comment: Crit eria not met, HPV Genotype not performed. Performed at: [address] [id number] [employer] Tutor: Vanessa Morris MD, Phone: [phone] Performed at: = - [address] [id number] [employer] T[employer]: Vanessa Morris MD, Phone: [phone] Performed By: #### L 7400.0280 #### [facility] [address] [place], [address] PAPSMR Comment Normal . [facility] Comment on above: Order Comment: Speci men Comment: [id number] Specimen Comment: No. of containers..01 ThinPrep Vial Result Comment: The Pap smear is a screening test designed to aid in the detection of premalignant and malignant conditions of the uterine cervix. It is not a diagnostic procedure and should not be used as the sole means of detecting cervical cancer. Both false-positive and false-negative reports do occur. Performed By: #### L 7400.0280 #### [facility] [address] [place], [place], [address] PERFORM Comment Normal . [facility] Comment on above: Order Comment: Speci men Comment: [id number] Specimen Comment: No. of containers..01 ThinPrep Vial Result Comment: Paz Rooney, Stone Belt Sander (ASCP) Performed By: #### L 7400.0280 #### [facility] [address] [place], [address] Bio Medical Technician Office Visit Reporton 04-12-2025 Bio Medical Technician Office Visit Report [facility] [address], [address] [place] [address] OFFICE VISIT Date of Service: 04/12/25 MR#: [id number] Acct: [id number] Name: JOANNE STALLWORTH Rep #: [id number] : 1975 Provider: CLEMENT Trevino ams Age/Sex: 49/F Location: [facility] Status: Signed Intake Vital Signs 09/12/24 09:57 02/13/25 10:35 04/12/25 12:38 Height 5 ft 10 in 5 ft 11 in 5 ft 11 in Weight: 300 lb BMI 41.8 BP 110/74 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 Normal [facility] AST(SGOT)on 02-27-2025 AST [Catalytic activity/Vol] 22 U/L Normal <=[address] [facility] Comment on above: Performed By: #### L 501.4100, L501.9985, L500.4100, L501.9520, L501.4405, L500.2500 #### [facility] [address] [place], [address] Alanine Aminotransferas (SGP T)on 02-27-2025 ALT [Catalytic activity/Vol] 24 U/L Normal <=[address] [facility] Comment on above: Performed By: #### L 501.4100, L501.9985, L500.4100, L501.9520, L501.4405, L500.2500 ####[facility] [address] [place], [address] Basic Metabolic Profile (BMP )on 02-27-2025 BUN/CRE 18.1 RATIO Normal 10-[address] [facility] Comment on above: Performed By: #### L 501.4100, L501.9985, L500.4100, L501.9520, L501.4405, L500.2500 #### [facility] [address] [place], [address] Calcium [Mass/Vol] 9.7 mg/dL Normal 7.6-11.0 [facility] Comment on above: Performed By: #### L 501.4100, L501.9985, L500.4100, L501.9520, L501.4405, L500.2500 #### [facility] [address] [place], [address] Chloride [Moles/Vol] 94 mmol/L Low 98-108 [facility] Comment on above: Performed By: #### L 501.4100, L501.9985, L500.4100, L501.9520, L501.4405, L500.2500 #### [facility] [address] [place], [address] CO2 [Moles/Vol] 24.7 mmol/L Normal 21.0-32.[address] [facility] Comment on above: Performed By: #### L 501.4100, L501.9985, L500.4100, L501.9520, L501.4405, L500.2500 #### [facility] [address] [place], [address] Creatinine [Mass/Vol] 0.65 mg/dL Low 0.70-1.20 [facility] Comment on above: Performed By: #### L 501.4100, L501.9985, L500.4100, L501.9520, L501.4405, L500.2500 #### [facility] [address] [place], [address] GAP 16 High 5-[address] [facility] Comment on above: Performed By: #### L 501.4100, L501.9985, L500.4100, L501.9520, L501.4405, L500.2500 #### [facility] [address] [place], [address] GFR/1.73 sq M.predicted among non-blacks MDRD (S/P/Bld) [Vol rate/Area] 109 mL/min/{1.73_m2} Normal >[address] [facility] Comment on above: Result Comment: mL/m in/1.73m2 CKD-EPI Creatinine Equation (2020) Performed By: #### L 501.4100, L501.9985, L500.4100, L501.9520, L501.4405, L500.2500 #### [facility] [address] [place], [address] Glucose [Mass/Vol] 236 mg/dL High 70-99 [facility] Comment on above: Performed By: #### L 501.4100, L501.9985, L500.4100, L501.9520, L501.4405, L500.2500 #### [facility] [address] [place], [address] Potassium [Moles/Vol] 4.1 mmol/L Normal 3.3-5.1 [facility] Comment on above: Performed By: #### L 501.4100, L501.9985, L500.4100, L501.9520, L501.4405, L500.2500 #### [facility] [address] [place], [address] Sodium [Moles/Vol] 134 mmol/L Normal 133-145 [facility] Comment on above: Performed By: #### L 501.4100, L501.9985, L500.4100, L501.9520, L501.4405, L500.2500 #### [facility] [address] [place], [address] Urea nitrogen [Mass/Vol] 12 mg/dL Normal 4-[address] [facility] Comment on above: Performed By: #### L 501.4100, L501.9985, L500.4100, L501.9520, L501.4405, L500.2500 #### [facility] [address] [place], [address] Hemoglobin A1con 02-27-2025 HbA1c (Bld) [Mass fraction] 7.5 % High <=5.[address] [facility] Comment on above: Result Comment: Norm al < 5.7 % Prediabetic 5.7 - 6.4 % Diabetic >or= 6.5 % Please note range changes. Performed By: #### L 501.4100, L501.9985, L500.4100, L501.9520, L501.4405, L500.2500 #### [facility] [address] [place], [address] Lipid Profileon 02-27-2025 CHOL:HDL 6.[address] [facility] Comment on above: Performed By: #### L 501.4100, L501.9985, L500.4100, L501.9520, L501.4405, L500.2500 #### [facility] [address] [place], [address] Cholesterol [Mass/Vol] 257 mg/dL High <=200 [facility] Comment on above: Result Comment: Chol esterol level, Desirable <200 mg/dL Borderline high cholesterol 200-239 mg/dL High cholesterol >=240 mg/dL Recommendations of the NCEP Adult Treatment Panel for the following risk-cutoff thresholds for the [place] population. Performed By: #### L 501.4100, L501.9985, L500.4100, L501.9520, L501.4405, L500.2500 #### [facility] [address] [place], [address] Cholesterol in HDL [Mass/Vol] 39 mg/dL Low [facility] Comment on above: Result Comment: Ena onal Cholesterol Education Program (NCEP) guidelines: <40 mg/dL: Low HDL-cholesterol (major risk factor for CHD) >= 60 mg/dL: High HDL-cholesterol (negative risk factor for CHD) HDL-cholesterol is affected by a number of factors, e.g. smoking, exercise, hormones, sex and age. Performed By: #### L 501.4100, L501.9985, L500.4100, L501.9520, L501.4405, L500.2500 #### [facility] [address] [place], [address] Cholesterol in LDL [Mass/Vol] 109 mg/dL Normal [facility] Comment on above: Result Comment: Bord uqxwwd=431-517 mg/dL Higher Rwlh=525 mg/dL or greater Performed By: #### L 501.4100, L501.9985, L500.4100, L501.9520, L501.4405, L500.2500 #### [facility] [address] [place], [address] Cholesterol in VLDL [Mass/Vol] 109 mg/dL High 5-[address] [facility] Comment on above: Performed By: #### L 501.4100, L501.9985, L500.4100, L501.9520, L501.4405, L500.2500 #### [facility] [address] [place], [place], [address] Triglyceride [Mass/Vol] 545 mg/dL High [facility] Comment on above: Result Comment: The drugs N-Acetylcysteine and Metamizole may falsely depress this assay. Normal range: <150 mg/dL Borderline High: 150-199 mg/dL High: 200-499 mg/dL Very High: >500 mg/dL Performed By: #### L 501.4100, L501.9985, L500.4100, L501.9520, L501.4405, L500.2500 #### [facility] [address] [place], [place], [address] Thyroid Stim Hormone (TSH)on 02-27-2025 TSH 1.690 uIU/mL Normal 0.300-4.[address] [facility] Comment on above: Performed By: #### L 501.4100, L501.9985, L500.4100, L501.9520, L501.4405, L500.2500 #### [facility] [address] [facility] [place], [place], [address] /BMS.BPon 02-13-2025 MR/BMS.[address], [address] [place], [place] [address] OFFICE VISIT Date of Service: 02/13/25 MR#: [id number] Acct: [id number] Name: BASIMJOANNE A Rep #: [id number] : 1975 Provider: Dr. Maciel Shabazz se DO Age/Sex: 49/F Location: [facility].BP Status: Signed Intake Vital Signs 12/05/24 09:52 [...] pain S (more content not included)... Normal [facility] CBC W/Diff, Automatedon 01-12 Absolute Lymph 3.17 X10 3/uL Normal 0.83-4.[address] [facility] Comment on above: Order Comment: DR.DI COX ORDERED LH,FSH,TSH,VITDDRJEYSON ORDERED CBCD,CMP AND LIPID Performed By: #### L 500.4050, L100.0100, L506.1001, L3100.5170, L3100.5125, L501.9520, L500.4100 ####[facility] [address] [place], [address] Absolute Neut 7.1 X10 3/uL Normal 2.0-7.[address] [facility] Comment on above: Order Comment: DR.DI COX ORDERED LH,FSH,TSH,VITDDR.JERI ORDERED CBCD,CMP AND LIPID Performed By: #### L 500.4050, L100.0100, L506.1001, L3100.5170, L3100.5125, L501.9520, L500.4100 ####[facility] [address] [place], [address] Basophils/100 WBC (Bld) 0.5 % Normal 0-1 [facility] Comment on above: Order Comment: DR.DI COX ORDERED LH,FSH,TSH,VITDDR.OLERADHA ORDERED CBCD,CMP AND LIPID Performed By: #### L 500.4050, L100.0100, L506.1001, L3100.5170, L3100.5125, L501.9520, L500.4100 ####[facility] [address] [place], [address] Eosinophils/100 WBC (Bld) 0.7 % Normal 0-[address] [facility] Comment on above: Order Comment: DR.DI COX ORDERED LH,FSH,TSH,VITDDR.OLEGHE ORDERED CBCD,CMP AND LIPID Performed By: #### L 500.4050, L100.0100, L506.1001, L3100.5170, L3100.5125, L501.9520, L500.4100 ####[facility] [address] [place], [address] Erythrocyte distribution width (RBC) [Ratio] 12.2 % Normal 11.6-14.[address] [facility] Comment on above: Order Comment: DR.DI COX ORDERED LH,FSH,TSH,VITDDR.OLEGHE ORDERED CBCD,CMP AND LIPID Performed By: #### L 500.4050, L100.0100, L506.1001, L3100.5170, L3100.5125, L501.9520, L500.4100 ####[facility] [address] [place], [address] Hematocrit (Bld) [Volume fraction] 45.8 % Normal 37-[address] [facility] Comment on above: Order Comment: DR.DI COX ORDERED LH,FSH,TSH,VITDDR.OLEGHE ORDERED CBCD,CMP AND LIPID Performed By: #### L 500.4050, L100.0100, L506.1001, L3100.5170, L3100.5125, L501.9520, L500.4100 ####[facility] [address] [place], [address] Hemoglobin (Bld) [Mass/Vol] 15.5 g/dL High 12.0-15.[address] [facility] Comment on above: Order Comment: DR.DI COX ORDERED LH,FSH,TSH,VITDDR.OLEGHE ORDERED CBCD,CMP AND LIPID Performed By: #### L 500.4050, L100.0100, L506.1001, L3100.5170, L3100.5125, L501.9520, L500.4100 ####[facility] [address] [place], [address] IG% 0.900 Normal 0.0-0.[address] [facility] Comment on above: Order Comment: DR.DI COX ORDERED LH,FSH,TSH,VITDDR.OLEGHE ORDERED CBCD,CMP AND LIPID Result Comment: IG% - Immature Granulocytes (promyelocytes, myelocytes and metamyelocytes) > 1% indicates that a LEFT SHIFT is Present. Performed By: #### L 500.4050, L100.0100, L506.1001, L3100.5170, L3100.5125, L501.9520, L500.4100 ####[facility] [address] [place], [address] Lymphocytes/100 WBC (Bld) 28.3 % Normal 19-[address] [facility] Comment on above: Order Comment: DR.DI COX ORDERED LH,FSH,TSH,VITDDR.OLEGHE ORDERED CBCD,CMP AND LIPID Performed By: #### L 500.4050, L100.0100, L506.1001, L3100.5170, L3100.5125, L501.9520, L500.4100 ####[facility] [address] [place], [address] MCH (RBC) [Entitic mass] 31.6 pg Normal 27.0-32.[address] [facility] Comment on above: Order Comment: DR.DI COX ORDERED LH,FSH,TSH,VITDDR.OLEGHE ORDERED CBCD,CMP AND LIPID Performed By: #### L 500.4050, L100.0100, L506.1001, L3100.5170, L3100.5125, L501.9520, L500.4100 ####[facility] [address] [place], [address] MCHC (RBC) [Mass/Vol] 33.8 g/dL Normal 32-36 [facility] Comment on above: Order Comment: DR.DI COX ORDERED LH,FSH,TSH,VITDDR.OLEGHE ORDERED CBCD,CMP AND LIPID Performed By: #### L 500.4050, L100.0100, L506.1001, L3100.5170, L3100.5125, L501.9520, L500.4100 ####[facility] [address] [place], [address] MCV (RBC) [Entitic vol] 93.3 fL Normal 81-99 [facility] Comment on above: Order Comment: DR.DI COX ORDERED LH,FSH,TSH,VITDDR.OLEGHE ORDERED CBCD,CMP AND LIPID Performed By: #### L 500.4050, L100.0100, L506.1001, L3100.5170, L3100.5125, L501.9520, L500.4100 ####[facility] [address] [place], [address] Monocytes/100 WBC (Bld) 6.4 % Normal 0-10 [facility] Comment on above: Order Comment: DR.DI COX ORDERED LH,FSH,TSH,VITDDR.OLEGHE ORDERED CBCD,CMP AND LIPID Performed By: #### L 500.4050, L100.0100, L506.1001, L3100.5170, L3100.5125, L501.9520, L500.4100 ####[facility] [address] [place], [address] Neutrophils/100 WBC (Bld) 63.2 % Normal 47-[address] [facility] Comment on above: Order Comment: DR.DI COX ORDERED LH,FSH,TSH,VITDDR.OLEGHE ORDERED CBCD,CMP AND LIPID Performed By: #### L 500.4050, L100.0100, L506.1001, L3100.5170, L3100.5125, L501.9520, L500.4100 ####[facility] [address] [place], [address] Nucleated RBC (Bld) [#/Vol] 0 10*3/uL Normal 0-[address] [facility] Comment on above: Order Comment: DR.DI COX ORDERED LH,FSH,TSH,VITDDR.OLEGHE ORDERED CBCD,CMP AND LIPID Performed By: #### L 500.4050, L100.0100, L506.1001, L3100.5170, L3100.5125, L501.9520, L500.4100 ####[facility] [address] [place], [address] Platelet mean volume (Bld) [Entitic vol] 9.3 fL Normal 6.2-12.[address] [facility] Comment on above: Order Comment: DR.DI COX ORDERED LH,FSH,TSH,VITDDR.OLEGHE ORDERED CBCD,CMP AND LIPID Performed By: #### L 500.4050, L100.0100, L506.1001, L3100.5170, L3100.5125, L501.9520, L500.4100 ####[facility] [address] [place], [address] Platelets (Bld) [#/Vol] 385 10*3/uL Normal 150-[address] [facility] Comment on above: Order Comment: DR.DI COX ORDERED LH,FSH,TSH,VITDDR.OLEGHE ORDERED CBCD,CMP AND LIPID Performed By: #### L 500.4050, L100.0100, L506.1001, L3100.5170, L3100.5125, L501.9520, L500.4100 ####[facility] [address] [place], [address] RBC (Bld) [#/Vol] 4.91 10*6/uL Normal 4.2-5.4 [facility] Comment on above: Order Comment: DR.DI COX ORDERED LH,FSH,TSH,VITDDR.OLEGHE ORDERED CBCD,CMP AND LIPID Performed By: #### L 500.4050, L100.0100, L506.1001, L3100.5170, L3100.5125, L501.9520, L500.4100 ####[facility] [address] [place], [address] RDW SD 42.1 fl Normal 35.1-43.[address] [facility] Comment on above: Order Comment: DR.DI COX ORDERED LH,FSH,TSH,VITDDR.OLEGHE ORDERED CBCD,CMP AND LIPID Performed By: #### L 500.4050, L100.0100, L506.1001, L3100.5170, L3100.5125, L501.9520, L500.4100 ####[facility] [address] [place], [address] WBC (Bld) [#/Vol] 11.2 10*3/uL High 4.4-11.0 [facility] Comment on above: Order Comment: DR.DI COX ORDERED LH,FSH,TSH,VITDDR.OLEGHE ORDERED CBCD,CMP AND LIPID Performed By: #### L 500.4050, L100.0100, L506.1001, L3100.5170, L3100.5125, L501.9520, L500.4100 ####[facility] [address] [place], [address] Comprehensive Metabolic Prof ilon 01-23-2025 Albumin [Mass/Vol] 4.3 g/dL Normal 3.5-5.0 [facility] Comment on above: Order Comment: DR.DI COX ORDERED LH,FSH,TSH,VITDDR.OLEGHE ORDERED CBCD,CMP AND LIPID Performed By: #### L 500.4050, L100.0100, L506.1001, L3100.5170, L3100.5125, L501.9520, L500.4100 ####[facility] [address] [place], [address] Albumin/Globulin [Mass ratio] 1.3 {ratio} Normal 0.9-2.[address] [facility] Comment on above: Order Comment: DR.DI COX ORDERED LH,FSH,TSH,VITDDR.OLEGHE ORDERED CBCD,CMP AND LIPID Performed By: #### L 500.4050, L100.0100, L506.1001, L3100.5170, L3100.5125, L501.9520, L500.4100 ####[facility] [address] [place], [address] ALK PHOS 74 U/L Normal 35-[address] [facility] Comment on above: Order Comment: DR.DI COX ORDERED LH,FSH,TSH,VITDDR.OLEGHE ORDERED CBCD,CMP AND LIPID Performed By: #### L 500.4050, L100.0100, L506.1001, L3100.5170, L3100.5125, L501.9520, L500.4100 ####[facility] [address] [place], [address] ALT [Catalytic activity/Vol] 16 U/L Normal <=[address] [facility] Comment on above: Order Comment: DR.DI COX ORDERED LH,FSH,TSH,VITDDR.OLEGHE ORDERED CBCD,CMP AND LIPID Performed By: #### L 500.4050, L100.0100, L506.1001, L3100.5170, L3100.5125, L501.9520, L500.4100 ####[facility] [address] [place], [address] AST [Catalytic activity/Vol] 22 U/L Normal <=[address] [facility] Comment on above: Order Comment: DR.DI COX ORDERED LH,FSH,TSH,VITDDR.OLEGHE ORDERED CBCD,CMP AND LIPID Result Comment: Hemo lysis present, Results??could be affected. ?? Performed By: #### L 500.4050, L100.0100, L506.1001, L3100.5170, L3100.5125, L501.9520, L500.4100 ####[facility] [address] [place], [address] Bilirubin [Mass/Vol] 0.23 mg/dL Normal 0.00-1.30 [facility] Comment on above: Order Comment: DR.DI COX ORDERED LH,FSH,TSH,VITDDR.OLEGHE ORDERED CBCD,CMP AND LIPID Performed By: #### L 500.4050, L100.0100, L506.1001, L3100.5170, L3100.5125, L501.9520, L500.4100 ####[facility] [address] [place], [address] BUN/CRE 33.2 RATIO High 10-[address] [facility] Comment on above: Order Comment: DR.DI COX ORDERED LH,FSH,TSH,VITDDR.OLEGHE ORDERED CBCD,CMP AND LIPID Performed By: #### L 500.4050, L100.0100, L506.1001, L3100.5170, L3100.5125, L501.9520, L500.4100 ####[facility] [address] [place], [address] Calcium [Mass/Vol] 10.2 mg/dL Normal 7.6-11.0 [facility] Comment on above: Order Comment: DR.DI COX ORDERED LH,FSH,TSH,VITDDR.OLEGHE ORDERED CBCD,CMP AND LIPID Performed By: #### L 500.4050, L100.0100, L506.1001, L3100.5170, L3100.5125, L501.9520, L500.4100 ####[facility] [address] [place], [address] Chloride [Moles/Vol] 98 mmol/L Normal 98-108 [facility] Comment on above: Order Comment: DR.DI COX ORDERED LH,FSH,TSH,VITDDR.OLEGHE ORDERED CBCD,CMP AND LIPID Performed By: #### L 500.4050, L100.0100, L506.1001, L3100.5170, L3100.5125, L501.9520, L500.4100 ####[facility] [address] [place], [address] CO2 [Moles/Vol] 24.3 mmol/L Normal 21.0-32.[address] [facility] Comment on above: Order Comment: DR.DI COX ORDERED LH,FSH,TSH,VITDDR.OLEGHE ORDERED CBCD,CMP AND LIPID Performed By: #### L 500.4050, L100.0100, L506.1001, L3100.5170, L3100.5125, L501.9520, L500.4100 ####[facility] [address] [place], [address] Creatinine [Mass/Vol] 0.69 mg/dL Low 0.70-1.20 [facility] Comment on above: Order Comment: DR.DI COX ORDERED LH,FSH,TSH,VITDDR.OLEGHE ORDERED CBCD,CMP AND LIPID Performed By: #### L 500.4050, L100.0100, L506.1001, L3100.5170, L3100.5125, L501.9520, L500.4100 ####[facility] [address] [place], [place], [phone](187) GAP 15 Normal 5-[address] [facility] Comment on above: Order Comment: DR.DI COX ORDERED LH,FSH,TSH,VITDDR.OLEGHE ORDERED CBCD,CMP AND LIPID Performed By: #### L 500.4050, L100.0100, L506.1001, L3100.5170, L3100.5125, L501.9520, L500.4100 ####[facility] [address] [place], [address] GFR/1.73 sq M.predicted among non-blacks MDRD (S/P/Bld) [Vol rate/Area] 108 mL/min/{1.73_m2} Normal >[address] [facility] Comment on above: Order Comment: DR.DI CXO ORDERED LH,FSH,TSH,VITDDR.OLEGHE ORDERED CBCD,CMP AND LIPID Result Comment: mL/m in/1.73m2 CKD-EPI Creatinine Equation (2020) Performed By: #### L 500.4050, L100.0100, L506.1001, L3100.5170, L3100.5125, L501.9520, L500.4100 ####[facility] [address] [place], [address] Globulin (S) [Mass/Vol] 3.2 g/dL Normal 2.2-4.2 [facility] Comment on above: Order Comment: DR.DI COX ORDERED LH,FSH,TSH,VITDDR.OLEGHE ORDERED CBCD,CMP AND LIPID Performed By: #### L 500.4050, L100.0100, L506.1001, L3100.5170, L3100.5125, L501.9520, L500.4100 ####[facility] [address] [place], [address] Glucose [Mass/Vol] 145 mg/dL High 70-99 [facility] Comment on above: Order Comment: DR.DI COX ORDERED LH,FSH,TSH,VITDDR.OLEGHE ORDERED CBCD,CMP AND LIPID Performed By: #### L 500.4050, L100.0100, L506.1001, L3100.5170, L3100.5125, L501.9520, L500.4100 ####[facility] [address] [place], [address] Potassium [Moles/Vol] 4.4 mmol/L Normal 3.3-5.1 [facility] Comment on above: Order Comment: DR.DI COX ORDERED LH,FSH,TSH,VITDDR.OLEGHE ORDERED CBCD,CMP AND LIPID Result Comment: Hemo lysis present, Results??could be affected. ?? Performed By: #### L 500.4050, L100.0100, L506.1001, L3100.5170, L3100.5125, L501.9520, L500.4100 ####[facility] [address] [place], [address] Sodium [Moles/Vol] 137 mmol/L Normal 133-145 [facility] Comment on above: Order Comment: DR.DI COX ORDERED LH,FSH,TSH,VITDDR.OLEGHE ORDERED CBCD,CMP AND LIPID Performed By: #### L 500.4050, L100.0100, L506.1001, L3100.5170, L3100.5125, L501.9520, L500.4100 ####[facility] [address] [place], [address] T PROT 7.5 g/dL Normal 5.9-8.[address] [facility] Comment on above: Order Comment: DR.DI COX ORDERED LH,FSH,TSH,VITDDR.OLEGHE ORDERED CBCD,CMP AND LIPID Performed By: #### L 500.4050, L100.0100, L506.1001, L3100.5170, L3100.5125, L501.9520, L500.4100 ####[facility] [address] [place], [address] Urea nitrogen [Mass/Vol] 23 mg/dL High 4-[address] [facility] Comment on above: Order Comment: DR.DI COX ORDERED LH,FSH,TSH,VITDDR.OLEGHE ORDERED CBCD,CMP AND LIPID Performed By: #### L 500.4050, L100.0100, L506.1001, L3100.5170, L3100.5125, L501.9520, L500.4100 ####[facility] [address] [place], [address] Follicle Stimulating Hormone on 01-23-2025 FSH 15.0 mIU/mL Normal [facility] Comment on above: Order Comment: DR.DI [...] 500.4050, L100.0100, L506.1001, L3100.5170, L3100.5125, L501.9520, L500.4100 ####[facility] [address] [facility] [place], [address] Lipid Profileon 01-23-2025 CHOL:HDL 5.[address] [facility] Comment on above: Order Comment: DR.DI COX ORDERED LH,FSH,TSH,VITDDR.OLEGHE ORDERED CBCD,CMP AND LIPID Performed By: #### L 500.4050, L100.0100, L506.1001, L3100.5170, L3100.5125, L501.9520, L500.4100 ####[facility] [address] [facility] [place], [address] Cholesterol [Mass/Vol] 208 mg/dL High <=200 [facility] Comment on above: Order Comment: DR.DI COX ORDERED LH,FSH,TSH,VITDDR.OLEGHE ORDERED CBCD,CMP AND LIPID Result Comment: Chol esterol level, Desirable <200 mg/dL Borderline high cholesterol 200-239 mg/dL High cholesterol >=240 mg/dL Recommendations of the NCEP Adult Treatment Panel for the following risk-cutoff thresholds for the [place] population. Performed By: #### L 500.4050, L100.0100, L506.1001, L3100.5170, L3100.5125, L501.9520, L500.4100 ####[facility] [address] [place], [address] Cholesterol in HDL [Mass/Vol] 41 mg/dL Normal [facility] Comment on above: Order Comment: DR.DI COX ORDERED LH,FSH,TSH,VITDDR.OLEGHE ORDERED CBCD,CMP AND LIPID Result Comment: Ena onal Cholesterol Education Program (NCEP) guidelines: <40 mg/dL: Low HDL-cholesterol (major risk factor for CHD) >= 60 mg/dL: High HDL-cholesterol (negative risk factor for CHD) HDL-cholesterol is affected by a number of factors, e.g. smoking, exercise, hormones, sex and age. Performed By: #### L 500.4050, L100.0100, L506.1001, L3100.5170, L3100.5125, L501.9520, L500.4100 ####[facility] [address] [place], [address] Cholesterol in LDL [Mass/Vol] 81 mg/dL Normal [facility] Comment on above: Order Comment: DR.DI COX ORDERED LH,FSH,TSH,VITDDR.OLEGHE ORDERED CBCD,CMP AND LIPID Result Comment: Bord auxiis=519-337 mg/dL Higher Ccvd=913 mg/dL or greater Performed By: #### L 500.4050, L100.0100, L506.1001, L3100.5170, L3100.5125, L501.9520, L500.4100 ####[facility] [address] [place], [address] Cholesterol in VLDL [Mass/Vol] 86 mg/dL High 5-[address] [facility] Comment on above: Order Comment: DR.DI COX ORDERED LH,FSH,TSH,VITDDR.OLEGHE ORDERED CBCD,CMP AND LIPID Performed By: #### L 500.4050, L100.0100, L506.1001, L3100.5170, L3100.5125, L501.9520, L500.4100 ####[facility] [address] [place], [place], [id number] Triglyceride [Mass/Vol] 432 mg/dL High [facility] Comment on above: Order Comment: DR.DI CXO ORDERED LH,FSH,TSH,VITDDR.JERI ORDERED CBCD,CMP AND LIPID Result Comment: The drugs N-Acetylcysteine and Metamizole may falsely depress this assay. Normal range: <150 mg/dL Borderline High: 150-199 mg/dL High: 200-499 mg/dL Very High: >500 mg/dL Performed By: #### L 500.4050, L100.0100, L506.1001, L3100.5170, L3100.5125, L501.9520, L500.4100 ####[facility] [address] [place], [address] Luteinizing Hormoneon 2024 LH 9.8 mIU/mL Normal [facility] Comment on above: Order Comment: DR.DI COX ORDERED LH,FSH,TSH,VITDDR.JERI ORDERED CBCD,CMP AND LIPID Result Comment: FEMA LE: Follicular: 1.9-12.5 mIU/mL Midcycle: 8.7-76.3 mIU/mL Luteal: 0.5-16.9 mIU/mL Post Menopause: 15.9-54.0 mIU/mL MALE: 20-70 Years: 1.5-9.3 mIU/mL >70 Years: 3.1-34.6 mIU/mL Performed By: #### L 500.4050, L100.0100, L506.1001, L3100.5170, L3100.5125, L501.9520, L500.4100 ####[facility] [address] [place], [address] Thyroid Stim Hormone (TSH)on 01-23-2025 TSH 2.640 uIU/mL Normal 0.300-4.[address] [facility] Comment on above: Order Comment: DR.DI COX ORDERED LH,FSH,TSH,VITDDR.JERI ORDERED CBCD,CMP AND LIPID Performed By: #### L 500.4050, L100.0100, L506.1001, L3100.5170, L3100.5125, L501.9520, L500.4100 ####[facility] [address] [place], [address] Vitamin D,25 Hydroxyon 01-23 Vitamin D 25-OH 28.6 ng/mL Low 30-[address] [facility] Comment on above: Order Comment: DR.DI COX ORDERED LH,FSH,TSH,VITDDR.JERI ORDERED CBCD,CMP AND LIPID Result Comment: Cristina min D Status Deficiency: <20 ng/mL (50nmol/L) Insufficiency: 20-30 ng/mL (50-75 nmol/L) Sufficiency: 30-100 ng/mL (75-250 nmol/L) Toxicity: >100 ng/mL (>250 nmol/L) Performed By: #### L 500.4050, L100.0100, L506.1001, L3100.5170, L3100.5125, L501.9520, L500.4100 ####[facility] [address] [place], [place], [address] Internal Medicine Office Vis jose 01-18-2025 Internal Medicine Office Visit [facility] [place] [address] [place] [address] OFFICE VISIT Date of Service: 01/18/25 MR#: [id number] Acct: [id number] Name: JOANNE STALLWORTH Julio Rep #: [id number] : 1975 Provider: Dr. Rogers draper MD Age/Sex: 49/F Location: [facility] Status: Signed Intake Vital Signs 09/12/24 09:57 [...] M FU Chief Complaint: Follow-up chronic conditions Bee Tender Required: No Is patient in pain?: No [...] 01/18/25 History Nurse's Note: Doing IOP at [facility] is feeling well, and not had any medication changes. Will have FSH,LH and some other labs drawn. through Dr. Moffett [facility] Medical History Generalized anxiety disorder Major depressive [...] lump KAMAR (more content not included)... Normal [facility] Gastroenterology Visit Repor ton 12-05-2024 Gastroenterology Visit Report [facility]enterology [address] [place] [address] OFFICE VISIT Date of Service: 12/05/24 MR#: [id number] Acct: [id number] Name: JOANNE STALLWORTH Rep #: [id number] : 1975 Provider: Marino Trotter DO Age/Sex: 49/F Location: [facility] Status: Signed Intake Vital Signs 03/02/24 10:05 [...] 10 mg PO PRN PRN Migraine Symptoms 10/18/16 03/24/25 History tablet biotin 1 mg capsule 1 [...] pain Arthritis Hypertension Surgical History ... Normal [facility] MR/BMS.BPon 12-05-2024 MR/BMS.BP [facility] ry [address], [address] [place] [address] OFFICE VISIT Date of Service: 12/05/24 MR#: [id number] Acct: [id number] Name: JOANNE STALLWORTH Rep #: [id number] : 1975 Provider: Dr. Maciel Shabazz se, DO Age/Sex: 49/F Location: [facility] Status: Signed Intake Vital Signs 09/12/24 09:57 [...] prednisone Adverse Reaction (Verified 11/25/24 09:49) [place] PFSH Medical History Wears glasses Depression Anxiety [...] because of this. 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 Outside of work, things have been "good." Sleep has been "come and go." Has been taking valerian root at times [...] regular volume and regular prosody Mood other ("Hanging in there") Affect full range Thought Process linear, logical and coherent Thought Content no delusions and no hallucinations Suicidal Ideation none Ho (more content not included)... Normal [facility] AST(SGOT)on 12-03-2024 AST [Catalytic activity/Vol] 19 U/L Normal <=[address] [facility] Comment on above: Performed By: #### L 500.2500, L501.4405, L501.4100, L501.9985 ####[facility] [address] [place], [address] Alanine Aminotransferas (SGP T)on 12-03-2024 ALT [Catalytic activity/Vol] 14 U/L Normal <=[address] [facility] Comment on above: Performed By: #### L 500.2500, L501.4405, L501.4100, L501.9985 ####[facility] [address] [place], [address] Basic Metabolic Profile (BMP )on 12-03-2024 BUN/CRE 33.0 RATIO High 10-[address] [facility] Comment on above: Performed By: #### L 500.2500, L501.4405, L501.4100, L501.9985 ####[facility] [address] [place], [address] Calcium [Mass/Vol] 9.4 mg/dL Normal 7.6-11.0 [facility] Comment on above: Performed By: #### L 500.2500, L501.4405, L501.4100, L501.9985 ####[facility] [address] [place], [address] Chloride [Moles/Vol] 98 mmol/L Normal 98-108 [facility] Comment on above: Performed By: #### L 500.2500, L501.4405, L501.4100, L501.9985 ####[facility] [address] [place], [address] CO2 [Moles/Vol] 23.9 mmol/L Normal 21.0-32.[address] [facility] Comment on above: Performed By: #### L 500.2500, L501.4405, L501.4100, L501.9985 ####[facility] [address] [place], [address] Creatinine [Mass/Vol] 0.66 mg/dL Low 0.70-1.20 [facility] Comment on above: Performed By: #### L 500.2500, L501.4405, L501.4100, L501.9985 ####[facility] [address] [place], [address] GAP 15 Normal 5-[address] [facility] Comment on above: Performed By: #### L 500.2500, L501.4405, L501.4100, L501.9985 ####[facility] [address] [place], [address] GFR/1.73 sq M.predicted among non-blacks MDRD (S/P/Bld) [Vol rate/Area] 109 mL/min/{1.73_m2} Normal >[address] [facility] Comment on above: Result Comment: mL/m in/1.73m2 CKD-EPI Creatinine Equation (2020) Performed By: #### L 500.2500, L501.4405, L501.4100, L501.9985 ####[facility] [address] [place], [address] Glucose [Mass/Vol] 170 mg/dL High 70-99 [facility] Comment on above: Performed By: #### L 500.2500, L501.4405, L501.4100, L501.9985 ####[facility] [address] [place], [address] Potassium [Moles/Vol] 4.8 mmol/L Normal 3.3-5.1 [facility] Comment on above: Result Comment: Hemo lysis present, Results??could be affected. ?? Performed By: #### L 500.2500, L501.4405, L501.4100, L501.9985 ####[facility] [address] [place], [address] Sodium [Moles/Vol] 136 mmol/L Normal 133-145 [facility] Comment on above: Performed By: #### L 500.2500, L501.4405, L501.4100, L501.9985 ####[facility] [address] [place], [address] Urea nitrogen [Mass/Vol] 22 mg/dL High 4-[address] [facility] Comment on above: Performed By: #### L 500.2500, L501.4405, L501.4100, L501.9985 ####[facility] [address] [place], [address] Hemoglobin A1con 12-03-2024 HbA1c (Bld) [Mass fraction] 7.5 % Normal <=5.[address] [facility] Comment on above: Performed By: #### L 500.2500, L501.4405, L501.4100, L501.9985 ####[facility] [address] [place], [address] Urgent Care Visit Reporton 0 11-25-2024 Urgent Care Visit Report [facility] [address] [place], [place] [address] OFFICE VISIT Date of Service: 11/25/24 MR#: [id number] Acct: [id number] Name: BASIMZACH CHEUNGHER Kim Rep #: [id number] : 1975 Provider: CHETAN Dixon Age/Sex: 49/F Location: [facility] Status: Signed Intake Vital Signs 09/12/24 09:57 [...] capsule 800 unit PO DAILY #60 caps /10/0511/25/24 Rx CoQ10 200 mg PO 1XD 03/05/22 [...] 3 days for some of they symptoms. [facility] Medical History Wears glasses Depression Anxiety Injury of head and neck Non-smoker BiPAP (biphasic positive airway pressure) dependence Shortness of breath on exertion History of stress test Health care maintenance Colon cancer screening Hypokalemia Insomnia Psoriasis MDD (major depressive disorder) Acute streptococcal pharyngitis Flu vaccine need Menstrual irregularity Fatty liver disease, nonalcoholic Osteoarthritis Morbid obesity ELVIS (obstruct (more content not included)... Normal [facility] Internal Medicine Office Vis jose 09-12-2024 Internal Medicine Office Visit [facility] [place] [address] OFFICE VISIT Date of Service: 09/12/24 MR#: [id number] Acct: [id number] Name: JOANNE STALLWORTH Rep #: [id number] : 1975 Provider: Dr. Rogers draper MD Age/Sex: 49/F Location: [facility] Status: Signed Intake Vital Signs 05/25/24 16:16 [...] 3 M FU Chief Complaint: 3m f/u Bee Tender Required: No Accompanied by: Self Is patient [...] 09/12/24 09/12/24 Rx release .COMPLEX #90 caps [facility] Medical History Wears glasses Depression Anxiety Injury [...] apnea H (more content not included)... Normal [facility] MR/BMS.BPon 09-12-2024 MR/BMS.BP [facility] [address], [address] [place] [address] OFFICE VISIT Date of Service: 09/12/24 MR#: [id number] Acct: [id number] Name: JOANNE STALLWORTH Rep #: [id number] : 1975 Provider: Dr. Maciel Shabazz se, DO Age/Sex: 49/F Location: [facility] Status: Signed Intake Vital Signs 05/18/24 16:21 [...] 09/12/24 09/12/24 Rx release .COMPLEX #90 caps [facility] Medical History Wears glasses Depression Anxiety Injury [...] Hypertension Surgic (more content not included)... Normal [facility] Bedside Glucoseon 09-09-2024 FINGERSTICK GLU 222 mg/dL High 74-[address] [facility] Comment on above: Result Comment: MASON MAXWELL OF PATIENT CARE PER NURSING PROTOCOL Performed By: #### L 501.080 ####[facility] [address] [place], [address] Colonoscopy Reporton 024 Colonoscopy Report [facility] Medical Records Department [address] [place] [address] Colonoscopy Report MR#: [id number] Acct: [id number] Name: JOANNE STALLWORTH Rep #: [id number] : 1975 49 From: Marino Trotter DO PCP: Dr. Rogers Bellamy MD Status:REG [facility] Patient Name: Joanne Stallworth Procedure Date: 09/09/2024 [...] criteria for high risk CPT copyright 2021 [employer]. All rights reserved. The codes documented in this report are preliminary and upon raimann machine operator review may be revised to meet current compliance requirements. Marino Trotter DO 09/09/2024 12:45:41 PM This report has been signed electronically. Number of Addenda: 0 Note Initiated On: 09/09/2024 11:01 AM 09/09/24 1246 Date Marino Fongigndalia Signature: Date (if indicated) CC: Dr. Rogers Bellamy MD; Marino Trotter DO Date Dictated: 09/09/24 1101 Date Transcribed: Measurement And Verification Engineer: RUBEN Signed [facility] MR/POSTOP.ANEon 09-09-2024 MR/POSTOP.ANE [facility] Medical Records Department [address] [place] [address] Anesthesia Postop Eval I 09/09/24 1248 MR#: [id number] Acct: [id number] Name: JOANNE STALLWORTH Rep #: [id number] : 1975 49 From: Dago Grijalva PCP: Dr. Rogers Bellamy MD Status:RUDY JAIMES Y Race: C Location: [place] [address] Anesthesia: Postop Eval I Current Vital Signs [...] 1 completed: Yes 09/09/24 1249 Date Dago Solis Signature: Date CC: Signed [facility] MR/PEFKJRKA0hw 09-09-2024 MR/POSTOPAN2 [facility] Medical Records Department [address] [place] [address] Anesthesia Postop Eval II 09/09/24 1352 MR#: [id number] Acct: [id number] Name: BASIMJOANNE A Rep #: [id number] : 1975 49 From: Marcelo Price MD PCP: Dr. Rogers Bellamy MD Status:AYAZ TABOR Y Race: C Location: [place] Anesthesia Postop [...] No Vomiting: No 09/09/24 1352 Date Marcelo Solis Signature: Date CC: Signed Normal [facility] ,Urineon 09-09-2024 Beta HCG ( test) Ql (U) Negative Normal [facility] Comment on above: Result Comment: Very dilute urine specimens, as indicated by a low specific gravity, may not contain financial representative levels of hCG. If is still suspected, a first morning urine specimen should be collected 48 hours later and tested. Performed By: #### L 400.7600 ####[facility] [address] [place], [address] /Keny 09-08-2024 MR/ZACKARY [facility] Medical Records Department [address] [place] [address] PAT - Anesthesia 09/08/24 [id number] MR#: [id number] Acct: [id number] Name: JOANNE STALLWORTH Rep #: [id number] : 1975 49 From: Froilan Lerma MD PCP: Dr. Rogers Bellamy MD Status:PRE SDC Y Race: C Location: EN Pre-Assessment Diagnosis/Proposed Procedure Planned Operative Procedure(s): COLONOSCOPY-OA Anesthesia History Anesthesia History - lining brusher: Anesthesia History - lining brusher Hx Hospitalization No 09/08/24 11:07 Any Problems [...] take am of surgery PONV PONV - lining brusher: PONV - lining brusher Female Yes 09/08/24 11:07 HX of Motion [...] 07/20/24 09:33 Respiratory Assessment Respiratory Assessment - lining brusher: Respiratory Tract Infection Hx - lining brusher Hx Respiratory Tract Infection No 09/08/24 11:07 STOP Sleep Apnea STOP Sleep Apnea - lining brusher: STOP Sleep Apnea - lining brusher Hx Hypertension Yes: CONTROLLED ON MED 09/08/24 [...] Tobacco Use History Tobacco Use History - lining brusher: Tobacco Use History - lining brusher Tobacco Use Smoking Status Never smoker 09/08/24 11:07 Hx Tobacco Use No 09/08/24 11:07 Years Smoking Packs Smoked per Day Smoking Cessation Date was within the last 15 years Hx Smoking Cessation Date Hx Smoking Cessation Counseling Hematologic Medial History Hematologic Hx - lining brusher: Hematologic Medical 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 (more content not included)... Normal [facility] ABD Limited w/ Elastographyo n 09-05-2024 ABD Limited w/ Elastography [facility] Imaging Services [address] [place] [address] ABD Limited w/ Elastography MR#: [id number] Acct: [id number] Name: JOANNE STALLWORTH Rep #: [id number] : 1975 F 49 From: Adán franklin MD PCP: Dr. Rogers Bellamy MD Status: REG CL Study: ABD Limited w/ Elastography Date of Exam: 08/15 12/05 Exam# [id number] Ordering Dr: Marino Trotter DO [id number] STUDY: ABDOMINAL ULTRASOUND - RIGHT UPPER QUADRANT; ELASTOGRAPHY REASON FOR VISIT: Female, 49 years old. Fatty infiltration of liver. TECHNIQUE: Ultrasound evaluation of the right upper quadrant was performed with real-time and static bolden-scale imaging. Point quantification shear wave elastography was performed (IZEA). TECHNICAL QUALITY: Adequate. COMPARISON: Comparison is made [...] Signed: Adán East MD at 13:06 EST Reading Location ID and State: [facility] / [place] , Service support , CC: Dr. Rogers Bellamy MD; Marino Trotter, DO Measurement And Verification Engineer: Signed Normal [facility] AST(SGOT)on 08-27-2024 AST [Catalytic activity/Vol] 17 U/L Normal 15-[address] [facility] Comment on above: Result Comment: Slig ht Hemolysis, Result may be falsely increased. Performed By: #### L 501.4100, L501.9985, L500.2500, L501.4405 ####[facility] [address] [place], [address] Alanine Aminotransferas (SGP T)on 08-27-2024 ALT [Catalytic activity/Vol] 26 U/L Normal 13-[address] [facility] Comment on above: Performed By: #### L 501.4100, L501.9985, L500.2500, L501.4405 ####[facility] [address] [place], [address] Basic Metabolic Profile (BMP )on 08-27-2024 BUN/CRE 24.7 RATIO High 10-[address] [facility] Comment on above: Performed By: #### L 501.4100, L501.9985, L500.2500, L501.4405 ####[facility] [address] [place], [address] CA,Total 9.6 mg/dL Normal 8.5-10.[address] [facility] Comment on above: Performed By: #### L 501.4100, L501.9985, L500.2500, L501.4405 ####[facility] [address] [place], [address] Chloride [Moles/Vol] 100 mmol/L Normal 98-107 [facility] Comment on above: Performed By: #### L 501.4100, L501.9985, L500.2500, L501.4405 ####[facility] [address] [place], [address] CO2 [Moles/Vol] 30.0 mmol/L Normal 21.0-32.[address] [facility] Comment on above: Performed By: #### L 501.4100, L501.9985, L500.2500, L501.4405 ####[facility] [address] [place], [address] Creatinine [Mass/Vol] 0.69 mg/dL Normal 0.55-1.02 [facility] Comment on above: Result Comment: The validity of the calculated GFR GFRAA in patients over 70 years has not been determined. Clinical correlation is essential. Performed By: #### L 501.4100, L501.9985, L500.2500, L501.4405 ####[facility] [address] [place], [address] EST GFR - AA 118 mL/min Normal >[address] [facility] Comment on above: Result Comment: Afri can Indonesian GFR Calc Performed By: #### L 501.4100, L501.9985, L500.2500, L501.4405 ####[facility] [address] [place], [address] GAP 8 Normal 5-[address] [facility] Comment on above: Performed By: #### L 501.4100, L501.9985, L500.2500, L501.4405 ####[facility] [address] [place], [address] GFR/1.73 sq M.predicted among non-blacks MDRD (S/P/Bld) [Vol rate/Area] 97 mL/min/{1.73_m2} Normal >[address] [facility] Comment on above: Result Comment: Non- GFR Calc Performed By: #### L 501.4100, L501.9985, L500.2500, L501.4405 ####[facility] [address] [place], [address] Glucose [Mass/Vol] 225 mg/dL High 74-106 [facility] Comment on above: Result Comment: Gluc ose result greater than or equal to 200 mg/dL suggests DIABETES MELLITUS per A.D.A. criteria. Performed By: #### L 501.4100, L501.9985, L500.2500, L501.4405 ####[facility] [address] [place], [address] Potassium [Moles/Vol] 4.1 mmol/L Normal 3.5-5.1 [facility] Comment on above: Result Comment: Slig ht Hemolysis, Result may be falsely increased. Performed By: #### L 501.4100, L501.9985, L500.2500, L501.4405 ####[facility] [address] [place], [address] Sodium [Moles/Vol] 138 mmol/L Normal 136-145 [facility] Comment on above: Performed By: #### L 501.4100, L501.9985, L500.2500, L501.4405 ####[facility] [address] [place], [address] Urea nitrogen [Mass/Vol] 17 mg/dL Normal 7-[address] [facility] Comment on above: Performed By: #### L 501.4100, L501.9985, L500.2500, L501.4405 ####[facility] [address] [place], [address] Hemoglobin A1con 08-27-2024 HbA1c (Bld) [Mass fraction] 7.1 % High 3.8-5.[address] [facility] Comment on above: Result Comment: Norm al < 5.7 % Prediabetic 5.7 - 6.4 % Diabetic >or= 6.5 % Please note range changes. Performed By: #### L 501.4100, L501.9985, L500.2500, L501.4405 ####[facility] [address] [place], [address] SCRN MAMM (CAD)W/ROMERO BILATo n 07-28-2024 SCRN MAMM (CAD)W/ROMERO BILAT [facility] Imaging Services [address] [place], [place] [address] SCRN MAMM (CAD)W/ROMERO BILAT MR#: [id number] Acct: [id number] Name: JOANNE STALLWORTH Rep #: [id number] : 1975 F 49 From: Adán franklin MD PCP: Dr. Rogers Bellamy MD Status: PRE CLI Study: SCRN MAMM (CAD)W/ROMERO BILAT Date of Exam: 07/15 01/05 Exam# [id number] Ordering Dr: Rogers Bellamy MD [id number] MAMMOGRAPHY - BILATERAL SCREENING REASON FOR EXAM: [...] delay biopsy of a clinically suspicious abnormality. [id number] Electronically Signed: Adán East MD at 7:29 EST , CC: Dr. Rogers Bellamy MD Measurement And Verification Engineer: Signed Normal 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 This neuropsychological assessment is part of a multidisciplinary evaluation conducted in the [facility]. The assessment consisted of [...] years ago. 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 She reports stress related to management [...] high average. Processing speed on a digit-symbol biomechanical engineer task was average. Speeded color naming was average, and speeded word reading was average. Performance on a sustained attention task showed poor vigilance and inattentiveness. Executive functioning: Mental flexibility and visuomotor set shifting was high average. Verbal response inhibition was extremely low, and the same task with a set switching component was average. Qualitatively, the rewind operator observed the patient to slow down on [...] of ge (more content not included)... Normal [facility] CNPElizabeth 02-16-2023 [facility] Telephone (NEMN) JOANNE STALLWORTH ([id number]) 1975 F Date Time Provider Department 02/16/23 [...] Assessed Reason for Visit: Appointment [186] Cmt: m for patient to call so we can [...] Encounter Status:Closed by ROXANNE MONTANEZ on 02/16/23 [facility] Elsy 02-13-2023 CNOV Office Visit ([facility] ) JOANNE STALLWORTH ([id number]) 1975 F Date Time Provider Department 02/13/23 1:30 PM SADIE VEGA During your visit today, we recorded the following information about you: Pulse Blood pressure Weight 77/minute 126/71 131.1 kg Sadie Vega MD 02/13/2023 5:22 PM Signed NEUROLOGY CONSULTATION, [facility] REASON FOR CONSULTATION: Cognitive [...] and anxiety, ELVIS, SIMMONS 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 She did not lose consciousness. Serological [...] help, co (more content not included)... Normal [facility] Vit B12 SerPl-mCncon 023 Cobalamin (Vitamin B12) [Mass/Vol] 340 pg/mL Normal 232-1245 [facility] Comment on above: Order Comment: Speci men Type: BLOOD SPECIMEN Ordering Facility: [facility] Address: [address] [place], [place] [id number] Performed By: #### 2 132-9 #### [facility] CLIA [id number] [address] [facility] [id number] [place] [address] OF [facility] MRI BRAIN WO IVCONon 022 [facility] Absolute lymphocyte counton 06-30-2022 Lymphocytes Auto (Unsp spec) [#/Vol] 2.70 10*3/uL 0.83-4.[address] [facility] Work Phone: Basophil percentageon 2021 Basophils/100 WBC (Bld) 0.4 % 0-1 [facility] Work Phone: Bilirubin [Mass/Vol] 0.30 mg/dL 0.20-1.00 [facility] Work Phone: Comment on above: For patients on eltr ombopag therapy, use of Dimension [place] TBIL is not recommended. Eosinophils/100 WBC (Bld) 0.7 % 0-[address] [facility] Work Phone: Neutrophils (Bld) [#/Vol] 6.2 10*3/uL 2.0-7.[address] [facility] Work Phone: Neutrophils/100 WBC (Bld) 64.2 % 47-[address] [facility] Work Phone: Protein [Mass/Vol] 7.7 g/dL 6.4-8.2 [facility] Work Phone: WBC (Bld) [#/Vol] 9.7 10*3/uL 4.4-11.0 [facility] Work Phone: Blood erythrocytes count (nu mber/volume)on 06-30-2022 RBC (Bld) [#/Vol] 4.87 10*6/uL 4.2-5.4 [facility] Work Phone: Blood hemoglobin measurement (mass/volume)on 06-30-2022 Hemoglobin (Bld) [Mass/Vol] 15.1 g/dL 12.0-15.[address] [facility] Work Phone: Blood lymphocytes/100 leukoc yteson 06-30-2022 Lymphocytes/100 WBC (Bld) 27.9 % 19-[address] [facility] Work Phone: Blood monocytes/100 leukocyt eson 06-30-2022 Monocytes/100 WBC (Bld) 5.9 % 0-10 [facility] Work Phone: Blood platelet mean volumeon 06-30-2022 Platelet mean volume (Bld) [Entitic vol] 10.0 fL 6.2-12.[address] [facility] Work Phone: Determination of erythrocyte mean corpuscular volume (MCV)on 06-30-2022 MCV (RBC) [Entitic vol] 92.0 fL 81-99 [facility] Work Phone: Direct bilirubinon 2 Bilirubin.direct [Mass/Vol] 0.07 mg/dL 0.00-0.[address] [facility] Work Phone: Hematocrit Auto (Bld) [Volum e fraction]on 06-30-2022 Hematocrit (Bld) [Volume fraction] 44.8 % 37-[address] [facility] Work Phone: Laboratory - Chemistry and C hemistry - challengeon 06-30-2022 ALP [Catalytic activity/Vol] 79 U/L 45-[address] [facility] Work Phone: [phone] ALT [Catalytic activity/Vol] 20 U/L 13-[address] [facility] Work Phone: [phone] Globulin (S) [Mass/Vol] 4.0 g/dL 2.2-4.2 [facility] Work Phone: [phone] Laboratory - Hematology and Cell countson 06-30-2022 Erythrocyte distribution width (RBC) [Entitic vol] 39.8 fL 35.1-43.[address] [facility] Work Phone: [phone] Erythrocyte distribution width (RBC) [Ratio] 11.9 % 11.6-14.[address] [facility] Work Phone: [phone] Immature granulocytes/100 WBC (Bld) 0.900 % 0.0-0.[address] [facility] Work Phone: [phone] Comment on above: IG% - Immature Granu locytes (promyelocytes, myelocytes and metamyelocytes) > 1% indicates that a LEFT SHIFT is Present. MCH (RBC) [Entitic mass] 31.0 pg 27.0-32.[address] [facility] Work Phone: [phone] Nucleated RBC/100 WBC (Bld) [Ratio] 0 % 0-[address] [facility] Work Phone: [phone] MCHC Auto (RBC) [Mass/Vol]on 06-30-2022 MCHC (RBC) [Mass/Vol] 33.7 g/dL 32-36 [facility] Work Phone: [phone] Panel Informationon 06-30 Estimated GFR (MDRD) Amer 130 mL/min >[address] [facility] Work Phone: [phone] Comment on above: GFR Calc Estimated GFR (MDRD) Non-Af Amer 107 mL/min >[address] [facility] Work Phone: [phone] Comment on above: Non- GFR Calc Platelets bldon 06-30-2022 Platelets (Bld) [#/Vol] 387 10*3/uL 150-[address] [facility] Work Phone: [phone] Serum or plasma albumin hilton urement (mass/volume)on 06-30-2022 Albumin [Mass/Vol] 3.7 g/dL 3.2-5.0 [facility] Work Phone: Serum or plasma creatinine m easurement (mass/volume)on 06-30-2022 Creatinine [Mass/Vol] 0.64 mg/dL 0.55-1.02 [facility] Work Phone: Comment on above: The validity of the calculated GFR & GFRAA in patients over 70 years has not been determined. Clinical correlation is essential. Thin prep Papanicolaou smear with manual screeningon 06-30-2022 Thin prep Papanicolaou smear with manual screening 10 U/L 15-[address] [facility] Work Phone: Basophil percentageon 2021 Chloride [Moles/Vol] 101 mmol/L 98-107 [facility] Work Phone: Cholesterol [Mass/Vol] 157 mg/dL <200 [facility] Work Phone: Comment on above: <200 mg/dL Desirable 200-240 mg/dL Borderline >240 mg/dL High Risk Glucose [Mass/Vol] 161 mg/dL 74-106 [facility] Work Phone: Comment on above: Fasting Glucose resu lt greater than or equal to 126 mg/dL suggests DIABETES MELLITUS per A.D.A. criteria. Potassium [Moles/Vol] 3.6 mmol/L 3.5-5.1 [facility] Work Phone: Sodium [Moles/Vol] 138 mmol/L 136-145 [facility] Work Phone: [phone] Triglyceride [Mass/Vol] 261 mg/dL <199 [facility] Work Phone: [phone] Comment on above: The drugs N-Acetylcy steine and Metamizole may falsely depress this assay.Serum Triglycerides Reference Interval Normal <150 mg/dL Borderline high 150 - 199 mg/dL High 200 - 499 mg/dL Very High > or = 500 mg/dL Laboratory - Chemistry and C hemistry - challengeon 05-03-2022 ALT [Catalytic activity/Vol] 21 U/L 13-[address] [facility] Work Phone: CO2 [Moles/Vol] 29.0 mmol/L 21.0-32.[address] [facility] Work Phone: Urea nitrogen/Creatinine [Mass ratio] 17.6 mg/mg 10-[address] [facility] Work Phone: No Panel Informationon 05-03 Estimated GFR (MDRD) Amer 148 mL/min >[address] [facility] Work Phone: Comment on above: GFR Calc Estimated GFR (MDRD) Non-Af Amer 123 mL/min >[address] [facility] Work Phone: Comment on above: Non- GFR Calc Urine Microalbumin/Creatinine Ratio 24.0 mg/g CRE <[address] [facility] Work Phone: Serum or plasma calcium hilton urement (mass/volume)on 05-03-2022 Calcium [Mass/Vol] 8.9 mg/dL 8.5-10.1 [facility] Work Phone: Serum or plasma cholesterol in HDL measurement (mass/volume)on 05-03-2022 Cholesterol in HDL [Mass/Vol] 39 mg/dL >[address] [facility] Work Phone: Comment on above: The drugs N-Acetylcy steine and Metamizole may falsely depress this assay. Reference Range HDL <40 mg/dL Low HDL Cholesterol HDL >or= 60 mg/dL High HDL Cholesterol Serum or plasma cholesterol in VLDL measurement (mass/volume)on 05-03-2022 Cholesterol in VLDL [Mass/Vol] 52 mg/dL 5-[address] [facility] Work Phone: Serum or plasma creatinine m easurement (mass/volume)on 05-03-2022 Creatinine [Mass/Vol] 0.57 mg/dL 0.55-1.02 [facility] Work Phone: Comment on above: The validity of the calculated GFR & GFRAA in patients over 70 years has not been determined. Clinical correlation is essential. Serum or plasma low density lipoprotein (LDL) cholesterol measurement (mass/volume)on 05-03-2022 Cholesterol in LDL [Mass/Vol] 66 mg/dL 0-[address] [facility] Work Phone: Serum or plasma urea nitroge n measurement (mass/volume)on 05-03-2022 Urea nitrogen [Mass/Vol] 10 mg/dL 7-[address] [facility] Work Phone: Thin prep Papanicolaou smear with manual screeningon 05-03-2022 Thin prep Papanicolaou smear with manual screening 11 U/L 15-[address] [facility] Work Phone: Thin prep Papanicolaou smear with manual screening 8 5-[address] [facility] Work Phone: Thin prep Papanicolaou smear with manual screening 29.0 mg/L NO RANGE EST. [facility] Work Phone: Urine creatinine measurement (mass/volume)on 05-03-2022 Creatinine (U) [Mass/Vol] 121.00 mg/dL NO RANGE EST. [facility] Work Phone: [phone] Whole blood hemoglobin A1c/t otal hemoglobin ratio (mass fraction)on 05-03-2022 HbA1c (Bld) [Mass fraction] 6.7 % 3.8-5.[address] [facility] Work Phone: Comment on above: Normal < 5.7 % Predi abetic 5.7 - 6.4 % Diabetic >or= 6.5 % Please note range changes. No Panel Informationon 04-13 POC SARS CoV-2 Antigen Positive [facility] Work Phone: Absolute lymphocyte counton 04-01-2022 Lymphocytes Auto (Unsp spec) [#/Vol] 2.54 10*3/uL 0.83-4.[address] [facility] Work Phone: [phone] Atypical perinuclear antineu trophil cytoplasmic antibodies measurementon 04-01-2022 Neutrophil cytoplasmic Ab.perinuclear.atypical IF (S) [Titer] <1:20 titer Neg:<1:[address] [facility] Work Phone: Comment on above: The atypical pANCA p attern has been observed in asignificant percentage of patients with ulcerative colitis,primary sclerosing cholangitis and autoimmune hepatitis. Basophil percentageon 2021 Basophils/100 WBC (Bld) 0.5 % 0-1 [facility] Work Phone: Bilirubin [Mass/Vol] 0.40 mg/dL 0.20-1.00 [facility] Work Phone: Comment on above: For patients on eltr ombopag therapy, use of Dimension [place] TBIL is not recommended. Eosinophils/100 WBC (Bld) 0.7 % 0-[address] [facility] Work Phone: Neutrophils (Bld) [#/Vol] 6.5 10*3/uL 2.0-7.[address] [facility] Work Phone: Neutrophils/100 WBC (Bld) 66.4 % 47-[address] [facility] Work Phone: Protein [Mass/Vol] 8.2 g/dL 6.4-8.2 [facility] Work Phone: WBC (Bld) [#/Vol] 9.8 10*3/uL 4.4-11.0 [facility] Work Phone: Blood erythrocytes count (nu mber/volume)on 04-01-2022 RBC (Bld) [#/Vol] 5.14 10*6/uL 4.2-5.4 [facility] Work Phone: Blood hemoglobin measurement (mass/volume)on 04-01-2022 Hemoglobin (Bld) [Mass/Vol] 15.9 g/dL 12.0-15.[address] [facility] Work Phone: Blood lymphocytes/100 leukoc yteson 04-01-2022 Lymphocytes/100 WBC (Bld) 25.9 % 19-[address] [facility] Work Phone: Blood monocytes/100 leukocyt eson 04-01-2022 Monocytes/100 WBC (Bld) 5.9 % 0-10 [facility] Work Phone: Blood platelet mean volumeon 04-01-2022 Platelet mean volume (Bld) [Entitic vol] 9.5 fL 6.2-12.[address] [facility] Work Phone: [phone] Determination of erythrocyte mean corpuscular volume (MCV)on 04-01-2022 MCV (RBC) [Entitic vol] 93.4 fL 81-99 [facility] Work Phone: [phone] Direct bilirubinon Bilirubin.direct [Mass/Vol] 0.08 mg/dL 0.00-0.[address] [facility] Work Phone: [phone] Hematocrit Auto (Bld) [Volum e fraction]on 04-01-2022 Hematocrit (Bld) [Volume fraction] 48.0 % 37-[address] [facility] Work Phone: [phone] Laboratory - Chemistry and C hemistry - challengeon 04-01-2022 ALP [Catalytic activity/Vol] 68 U/L 45-[address] [facility] Work Phone: [phone] ALT [Catalytic activity/Vol] 27 U/L 13-[address] [facility] Work Phone: [phone] Globulin (S) [Mass/Vol] 4.0 g/dL 2.2-4.2 [facility] Work Phone: [phone] Laboratory - Hematology and Cell countson 04-01-2022 Erythrocyte distribution width (RBC) [Entitic vol] 39.8 fL 35.1-43.[address] [facility] Work Phone: [phone] Erythrocyte distribution width (RBC) [Ratio] 11.7 % 11.6-14.[address] [facility] Work Phone: [phone] Immature granulocytes/100 WBC (Bld) 0.600 % 0.0-0.[address] [facility] Work Phone: [phone] Comment on above: IG% - Immature Granu locytes (promyelocytes, myelocytes and metamyelocytes) > 1% indicates that a LEFT SHIFT is Present. MCH (RBC) [Entitic mass] 30.9 pg 27.0-32.[address] [facility] Work Phone: [phone] Nucleated RBC/100 WBC (Bld) [Ratio] 0 % 0-[address] [facility] Work Phone: MCHC Auto (RBC) [Mass/Vol]on 04-01-2022 MCHC (RBC) [Mass/Vol] 33.1 g/dL 32-36 [facility] Work Phone: Platelets bldon 04-01-2022 Platelets (Bld) [#/Vol] 455 10*3/uL 150-[address] [facility] Work Phone: Serum classic neutrophil cyt oplasmic antibody assay (units/volume)on 04-01-2022 Neutrophil cytoplasmic Ab.classic Qn (S) <1:20 titer Neg:<1:[address] [facility] Work Phone: Serum or plasma C reactive p rotein measurement (mass/volume)on 04-01-2022 CRP [Mass/Vol] 7.89 mg/L 0.0-3.[address] [facility] Work Phone: Comment on above: C-Reactive Protein ( CRP) provides useful information for thediagnosis, therapy and monitoring of inflammatory processesand associated diseases. For the evaluation of Relative Riskfor Cardiovascular Disease, a High Sensitivity CRP (HSCRP)should be ordered. Serum or plasma actin IgG an tibody assay (units/volume)on 04-01-2022 Actin IgG Qn 3 Units 0-[address] [facility] Work Phone: Comment on above: Negative 0 - 19 Weak positive 20 - 30 Moderate to strong positive >30 Actin Antibodies are found in 52-85% of patients with autoimmune hepatitis or chronic active hepatitis and in 22% of patients with primary biliary cirrhosis.Performed at: [facility] [place], [place] [id number] Director: Tacho Redmond PhD, Phone: [phone] Serum or plasma albumin hilton urement (mass/volume)on 04-01-2022 Albumin [Mass/Vol] 4.2 g/dL 3.2-5.0 [facility] Work Phone: Serum perinuclear neutrophil cytoplasmic antibody titer by immunofluorescenceon 04-01-2022 Neutrophil cytoplasmic Ab.perinuclear IF (S) [Titer] <1:20 titer Neg:<1:[address] [facility] Work Phone: Comment on above: The presence of posi tive fluorescence exhibiting P-ANCA orC-ANCA patterns alone is not specific for the diagnosis ofWegener's Granulomatosis (WG) or microscopic polyangiitis.Decisions about treatment should not be based solely onANCA IFA results. The International ANCA Group Consensusrecommends follow up testing of positive sera with both ME-3 and MPO-ANCA enzyme immunoassays. As many as 5% serumsamples are positive only by EIA. Ref. AM J Clin [id number];111:507-513. Thin prep Papanicolaou smear with manual screeningon 04-01-2022 Thin prep Papanicolaou smear with manual screening 20 U/L 15-[address] [facility] Work Phone: Basophil percentageon 2021 Bilirubin [Mass/Vol] 0.30 mg/dL 0.20-1.00 [facility] Work Phone: Comment on above: For patients on eltr ombopag therapy, use of Dimension [place] TBIL is not recommended. Chloride [Moles/Vol] 102 mmol/L 98-107 [facility] Work Phone: Glucose [Mass/Vol] 189 mg/dL 74-106 [facility] Work Phone: Comment on above: Fasting Glucose resu lt greater than or equal to 126 mg/dL suggests DIABETES MELLITUS per A.D.A. criteria. Potassium [Moles/Vol] 3.6 mmol/L 3.5-5.1 [facility] Work Phone: Protein [Mass/Vol] 7.5 g/dL 6.4-8.2 [facility] Work Phone: Sodium [Moles/Vol] 140 mmol/L 136-145 [facility] Work Phone: Laboratory - Chemistry and C hemistry - challengeon 03-21-2022 ALP [Catalytic activity/Vol] 75 U/L 45-[address] [facility] Work Phone: ALT [Catalytic activity/Vol] 26 U/L 13-[address] [facility] Work Phone: CO2 [Moles/Vol] 28.0 mmol/L 21.0-32.[address] [facility] Work Phone: [phone] Globulin (S) [Mass/Vol] 3.8 g/dL 2.2-4.2 [facility] Work Phone: Urea nitrogen/Creatinine [Mass ratio] 17.4 mg/mg 10-[address] [facility] Work Phone: No Panel Informationon 03-21 Estimated GFR (MDRD) Amer 108 mL/min >[address] [facility] Work Phone: Comment on above: GFR Calc Estimated GFR (MDRD) Non-Af Amer 89 mL/min >[address] [facility] Work Phone: Comment on above: Non- GFR Calc Serum or plasma albumin hilton urement (mass/volume)on 03-21-2022 Albumin [Mass/Vol] 3.7 g/dL 3.2-5.0 [facility] Work Phone: Serum or plasma albumin/glob ulin mass ratioon 03-21-2022 Albumin/Globulin [Mass ratio] 1.0 {ratio} 0.9-2.[address] [facility] Work Phone: Serum or plasma calcium hilton urement (mass/volume)on 03-21-2022 Calcium [Mass/Vol] 9.5 mg/dL 8.5-10.1 [facility] Work Phone: [phone] Serum or plasma creatinine m easurement (mass/volume)on 03-21-2022 Creatinine [Mass/Vol] 0.75 mg/dL 0.55-1.02 [facility] Work Phone: Comment on above: The validity of the calculated GFR & GFRAA in patients over 70 years has not been determined. Clinical correlation is essential. Serum or plasma urea nitroge n measurement (mass/volume)on 03-21-2022 Urea nitrogen [Mass/Vol] 13 mg/dL 7-[address] [facility] Work Phone: Thin prep Papanicolaou smear with manual screeningon 03-21-2022 Thin prep Papanicolaou smear with manual screening 16 U/L 15-[address] [facility] Work Phone: Thin prep Papanicolaou smear with manual screening 10 5-[address] [facility] Work Phone: Vital Signs Date Time Vital Sign Value Performing Clinician Tremaine nam 02-13-2023 14:14-0400 Body weight 131.09 kg Sadie Vega MD Work Phone: [facility] 02-13-2023 14:14-0400 Diastolic blood pressure 71 mm[Hg] Sadie Vega MD Work Phone: [facility] 02-13-2023 14:14-0400 Heart rate 77 /min Sadie Vega MD Work Phone: [facility] 02-13-2023 14:14-0400 Systolic blood pressure 126 mm[Hg] Sadie Vega MD Work Phone: [facility] 07-10-2022 16:02-0400 Body height 180.[address] Rogers Bellamy Work Phone: [facility] Work Phone: 07-10-2022 16:02-0400 Body mass index (BMI) [Ratio] 38.7 kg/m2 Dr. Rogers Bellamy Work Phone: [facility] Work Phone: 07-10-2022 16:02-0400 Body temperature 98 [degF] Dr. Rogers Bellamy Work Phone: [facility] Work Phone: 07-10-2022 16:02-0400 Body weight 126.[address] Rogers Bellamy Work Phone: [facility] Work Phone: 07-10-2022 16:02-0400 Diastolic blood pressure 82 mm[Hg] Dr. Rogers Bellamy Work Phone: [facility] Work Phone: 07-10-2022 16:02-0400 Heart rate 98 /min Dr. Rogers Bellamy Work Phone: [facility] Work Phone: 07-10-2022 16:02-0400 Respiratory rate 16 /min Dr. Rogers Bellamy Work Phone: [facility] Work Phone: 07-10-2022 16:02-0400 SaO2% (BldA) [Mass fraction] 98 % Dr. Rogers Bellamy Work Phone: [facility] Work Phone: 07-10-2022 16:02-0400 Systolic blood pressure 132 mm[Hg] Dr. Rogers Bellamy Work Phone: [facility] Work Phone: 04-13-2022 13:42-0400 Body temperature 95.2 [degF] Dr. Rogers Bellamy Work Phone: [facility] Work Phone: 04-13-2022 13:42-0400 Diastolic blood pressure 80 mm[Hg] Dr. Rogers Bellamy Work Phone: [facility] Work Phone: 04-13-2022 13:42-0400 Heart rate 88 /min Dr. Rogers Bellamy Work Phone: [facility] Work Phone: 04-13-2022 13:42-0400 Respiratory rate 16 /min Dr. Rogers Bellamy Work Phone: [facility] Work Phone: 04-13-2022 13:42-0400 SaO2% (BldA) [Mass fraction] 97 % Dr. Rogers Bellamy Work Phone: [facility] Work Phone: 04-13-2022 13:42-0400 Systolic blood pressure 140 mm[Hg] Dr. Rogers Bellamy Work Phone: [facility] Work Phone: 03-05-2022 16:55-0400 Body height 180.[address] Rogers Bellamy Work Phone: [facility] Work Phone: 03-05-2022 16:55-0400 Body mass index (BMI) [Ratio] 39.7 kg/m2 Dr. Rogers Bellamy Work Phone: [facility] Work Phone: 03-05-2022 16:55-0400 Body temperature 97.9 [degF] Dr. Rogers Bellamy Work Phone: [facility] Work Phone: 03-05-2022 16:55-0400 Body weight 129.[address] Rogers Bellamy Work Phone: [facility] Work Phone: 03-05-2022 16:55-0400 Diastolic blood pressure 86 mm[Hg] Dr. Rogers Bellamy Work Phone: [facility] Work Phone: 03-05-2022 16:55-0400 Heart rate 80 /min Dr. Rogers Bellamy Work Phone: [facility] Work Phone: 03-05-2022 16:55-0400 Respiratory rate 18 /min Dr. Rogers Bellamy Work Phone: [facility] Work Phone: 03-05-2022 16:55-0400 SaO2% (BldA) [Mass fraction] 98 % Dr. Rogers Bellamy Work Phone: [facility] Work Phone: 03-05-2022 16:55-0400 Systolic blood pressure 128 mm[Hg] Dr. Rogers Bellamy Work Phone: [facility] Work Phone: 11-27-2021 17:10-0400 Body mass index (BMI) [Ratio] 41.7 kg/m2 Dr. Rogers Bellamy Work Phone: [facility] Work Phone: 11-27-2021 17:10-0400 Body temperature 98.2 [degF] Dr. Rogers Bellamy Work Phone: [facility] Work Phone: 11-27-2021 17:10-0400 Body weight 135.[address] Rogers Bellamy Work Phone: [facility] Work Phone: 11-27-2021 17:10-0400 Diastolic blood pressure 80 mm[Hg] Dr. Rogers Bellamy Work Phone: [facility] Work Phone: 11-27-2021 17:10-0400 Heart rate 92 /min Dr. Rogers Bellamy Work Phone: [facility] Work Phone: 11-27-2021 17:10-0400 Respiratory rate 14 /min Dr. Rogers Bellamy Work Phone: [facility] Work Phone: 11-27-2021 17:10-0400 SaO2% (BldA) [Mass fraction] 99 % Dr. Rogers Bellamy Work Phone: [facility] Work Phone: 11-27-2021 17:10-0400 Systolic blood pressure 124 mm[Hg] Dr. Rogers Bellamy Work Phone: [facility] Work Phone: Encounters Encounter Date Encounter Type Care Provider Facility Start: 08-11-2025 ambulatory Efewongbe Olenaune Facili ty:[facility] Start: 07-01-2025 ambulatory Efewongbe Oleghe Facili ty:[facility] Start: 06-20-2025 End: 06-20-2025 ambulatory Velmabe Olenaune Facility:[facility] Start: 06-02-2025 End: 06-02-2025 ambulatory Marino Trotter Facility:[facility] Start: 05-22-2025 End: 05-22-2025 ambulatory Rogers Burlesone Facility:[facility] Start: 05-13-2025 ambulatory Efewongbe Olenaune Facili ty:[facility] Start: 05-13-2025 End: 05-13-2025 ambulatory April Schmidt Facility:[facility] Start: 04-17-2025 End: 04-17-2025 ambulatory Rogers Burlesone Facility:[facility] Start: 04-12-2025 Encounter for gynecological examination (general) (routine) without abnormal findings Beatrice Martin [facility] Start: 04-12-2025 End: 04-12-2025 ambulatory Rogers Burlesone Facility:[facility] Start: 04-12-2025 End: 04-12-2025 ambulatory Efdemaralbanybe Olenaune Facility:[facility] Start: 03-14-2025 End: 04-07-2025 ambulatory Anna DiLauro Facility:[facility] Start: 02-27-2025 End: 02-27-2025 ambulatory Efdemarongbe Olenaune Facility:[facility] Start: 02-23-2025 End: 03-13-2025 ambulatory Anna DiLauro Facility:[facility] Start: 02-15-2025 End: 02-17-2025 ambulatory Anna DiLauro Facility:[facility] Start: 02-13-2025 End: 02-13-2025 [facility] Start: 01-23-2025 End: 01-23-2025 ambulatory Anna DiLauro Facility:[facility] Start: 01-18-2025 End: 01-18-2025 ambulatory Efewongbe Olenaune Facility:[facility] Start: 01-16-2025 End: 02-11-2025 ambulatory Anna Huang Facility:[facility] Start: 12-05-2024 End: 12-05-2024 ambulatory Marino Trotter Facility:[facility] Start: 12-05-2024 End: 12-05-2024 ambulatory Maciel Alcaraz Facility:[facility] Start: 12-03-2024 End: 12-03-2024 ambulatory SIMI SAHU Facility:[facility] Start: 11-25-2024 End: 11-25-2024 ambulatory Fernando BENTON Facility:[facility] Start: 10-04-2024 Encounter for other preprocedural examination Marinoana Trotter [facility] Start: 09-12-2024 End: 09-12-2024 ambulatory Efewongbe Oleghe Facility:[facility] Start: 09-12-2024 End: 09-12-2024 ambulatory Maciel Zafar Kieran Facility:[facility] Start: 09-09-2024 End: 09-09-2024 ambulatory Efewongbe Oleghe Facility:[facility] Start: 09-05-2024 End: 09-05-2024 ambulatory Efewongbe Oleghe Facility:[facility] Start: 08-27-2024 End: 08-27-2024 ambulatory April Schmidt Facility:[facility] Start: 07-28-2024 End: 07-28-2024 ambulatory Efewongbe Oleghe Facility:[facility] Start: 2024 ambulatory Efewongbe Oleghe Facili ty:[facility] Start: 06-26-2023 End: 06-26-2023 ambulatory FROILAN BROWN Facility:[facility] Start: 05-02-2023 End: 05-02-2023 ambulatory SADIE VEGA Facility:[facility] Start: 04-13-2023 End: 04-13-2023 ambulatory Tad Andersen PhD Work Phone: Neurology Comment on above: Neuropsychological e valuation Start: 04-13-2023 E-mail encounter fro m caregiver Tad Andersen PhD Work Phone: [facility] Start: 04-13-2023 End: 04-13-2023 Patient encounter procedure Tad Andersen PhD Work Phone: Neuropyschology Comment on above: Cognitive disorder ( Primary Dx); Migraine aura without headache; ELVIS (obstructive sleep apnea) Start: 02-16-2023 Telephone encounter Sadie Vega MD Work Phone: [facility] Comment on above: Appointment ([facility] for patient to call so we can get her scheduled for a report visit with Dr Vega ) Start: 02-13-2023 End: 02-13-2023 ambulatory SADIE VEGA Facility:[facility] Start: 02-13-2023 End: 02-13-2023 ambulatory SADIE VEGA Facility:[facility] Start: 02-13-2023 End: 02-13-2023 Patient encounter procedure Sadie Vega MD Work Phone: Neurology Comment on above: Memory impairment (P rimary Dx); Cognitive complaints; Psychophysiologic insomnia; Stress at work; Obstructive sleep apnea Start: 10-13-2022 Telephone encounter Froilan Amado on DO Work Phone: Neurology Comment on above: 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 ([employer] ) Start: 09-21-2022 ambulatory Froilanjoey Amadoon D O Work Phone: Neurology Comment on above: Plans Start: 09-21-2022 E-mail encounter fro m caregiver Froilan Marissa Brown DO Work Phone: [facility] Start: 08-22-2022 End: 08-22-2022 Subsequent hospital visit by physician Mri Radio [facility] (I-Stat/1.5t) Work Phone: Radiology Comment on above: Cognitive impairment , mild, so stated [G31.84] Start: 08-20-2022 End: 08-20-2022 Telemedicine consultation with patient Froilan Amadoon DO Work Phone: [facility] Start: 08-20-2022 End: 08-20-2022 ambulatory Froilan P Brown DO Work Phone: Neurology Comment on above: Migraine with aura a nd without status migrainosus, not intractable (Primary Dx); 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 Rogers Bellamy Work Phone: [facility] Start: 06-30-2022 End: 06-30-[address] Rogers Bellamy Work Phone: [facility] Start: 05-03-2022 End: 05-03-[address] Rogers Bellamy Work Phone: [facility] Work Phone: Start: 05-03-2022 End: 05-03-[address] Rogers Bellamy Work Phone: [facility] Start: 04-23-2022 End: 04-23-[address] Rogers Bellamy Work Phone: [facility] Start: 04-13-2022 End: 04-13-[address] Rogers Bellamy Work Phone: [facility] Start: 04-01-2022 End: 04-01-[address] Rogers Bellamy Work Phone: [facility] Start: 03-21-2022 End: 03-21-[address] Rogers Bellamy Work Phone: [facility] Start: 03-05-2022 End: 03-05-[address] Rogers Bellamy Work Phone: [facility] Start: 01-14-2022 Telephone encounter Froilan Ascencio DO Work Phone: Neurology [...] 01-14-2022 End: 01-14-2022 Telemedicine consultation with patient Froilan Brown DO Work Phone: [facility] Start: 12-30-2021 End: 12-30-[address] Rogers Bellamy Work Phone: [facility] Start: 11-27-2021 End: 11-27-[address] Rogers Bellamy Work Phone: [facility] Procedures Date Procedure Procedure Detail Performing Clinician Start: 08-22-2022 Mri brain brain stem w/o contrast material Froilan Amadoon Work Phone: Start: 04-23-[address] Rogers Bellamy Work Phone: Start: 04-23-[address] Rogers Bellamy Work Phone: Start: 01-13-2022 Adult depression scr eening assessment Froilan Brown DO Work Phone: Plan of Treatment Date Care Activity Detail Author Start: 03-15-2024 Urine microalbumin profile [facility] Start: 02-14-2024 BP CONTROLLED (<130/80) BP CONTROLLE D (<130/80) [facility] Start: 05-15-2023 Covid-19 Vaccine ( season) Covid-19 Vaccine ( season) [facility] Start: 05-15-2023 Influenza vaccination C [facility] Start: 02-13-2023 End: 04-15-2023 Cobalamin (Vitamin B12) [Mass/volume] in Serum or Plasma [facility] Work Phone: Comment on above: Expected: 02/13/2023 , Expires: 04/15/2023 Start: 01-13-2023 Adult depression screening assessment DEPRESSION SCREENING [facility] Start: 09-14-2022 DEPRESSION ASSESSMENT DEPRESSION ASS ESSMENT [facility] Start: 2022 COLOGUARD (FIT-DNA) COLOGUARD (FIT-D NA) [facility] Start: 2022 Colonoscopy COLONOSCOPY [facility] Start: 2022 COLORECTAL CANCER SCREENING COLORECTAL CANCER SCREENING [facility] Start: [address] COLONOGRAPHY [facility] Start: 2022 DIABETES SCREEN DIABETES SCREEN [facility] Start: 2022 Diabetes Screening Diabetes Screenin g [facility] Start: 2022 FECAL OCCULT BLOOD FECAL OCCULT BLOO D [facility] Start: 2022 Lipid 1996 panel - S eric or Plasma Lipid Screening [facility] Start: 2022 LIPID SCREEN LIPID SCREEN [facility] Start: 2022 SIGMOIDOSCOPY SIGMOIDOSCOPY [facility] Start: 05-22-2022 COVID-19 VACCINE (5 - Booster for Moderna series) COVID-19 VACCINE (5 - Booster for Moderna series) [facility] Start: 05-22-2022 COVID-19 VACCINE (5 - Moderna series) COVID-19 VACCINE (5 - Moderna series) [facility] Start: 03-05-2022 Patient referral [facility] Work Phone: Start: 09-14-2021 DEPRESSION ASSESSMENT DEPRESSION ASS ESSMENT [facility] Start: 03-10-2018 HPV TESTING HPV TESTING [facility] Start: 03-10-2018 PAP TESTING PAP TESTING [facility] Start: 2017 Mammography [facility] Start: 1995 ANNUAL PCP TEAM BLANKET WINDER OPERATOR CARLYN DISEASE VISIT ANNUAL PCP TEAM CHRONIC DISEASE VISIT [facility] Start: 1995 BP CONTROLLED (<130/80) BP CONTROLLE D (<130/80) [facility] Start: 1995 HEPATITIS C SCREENING HEPATITIS C SC TAISHA [facility] Start: 1995 HIV SCREENING HIV SCREENING [facility] Start: 1977 HEPATITIS B (1 of 3 - 3-dose series) HEPATITIS B (1 of 3 - 3-dose series) [facility] Start: 1977 Hepatitis B Vaccine (1 of 3 - 3-dose series) Hepatitis B Vaccine (1 of 3 - 3-dose series) [facility] End: 09-19-2023 Mri brain brain stem w/o contrast material MRI BRAIN WO [facility] Radiology Routine Cognitive impairment, mild, so stated Memory impairment 1 Occurrences starting 08/20/2022 until 09/19/2023 [facility] Work Phone: Comment on above: 1 Occurrences starti ng 08/20/2022 until 09/19/2023 Patient referral [facility] Work Phone: [facility] Immunizations Immunization Date Immunization Notes Care Provider Dick eastman 07-10-2022 influenza, seasonal, injectable Dr. Rogers Bellamy Work Phone: [facility] Work Phone: 07-10-2022 influenza virus vaccine, unspecified formulation Mri (I-Stat/1.5t) Work Phone: [facility] 03-15-2014 tetanus toxoid, redu chuyita diphtheria toxoid, and acellular pertussis vaccine, adsorbed Froilan Brown DO Work Phone: [facility] Work Phone: Payers Date Payer Category Payer Unknown [id number] 2025 Unknown S 2024 Unknown [id number] 2024 Unknown [id number] 2024 Self-pay [id number] 2021 Unknown AN[employer]M BLUE ACCE SS PPO [id number] 2021-Present [phone] [address] [place] [address] PPO [id number] 2021 Unknown [id number] 2021 Private Health Insurance [facility] [employer] [id number] 2021-Present [phone] [address] [place] [address] HMO [id number] 2019 Unknown [id number]. [id number] 2019 Unknown [id number] 1.13.159.2. [id number] 2011 Private Health Insurance [id number] Private Health Insurance [id number] Unknown R JUANCARLOS [id number] Unknown [id number] 2.16840.1.803948.3.579.2. 462 Unknown [id number] 2.16840.1.638307.3.579.2. 462 Unknown [id number] 2.16840.1.494639.3.579.2. 462 Unknown [id number] 2.16840.1.868262.3.579.2. 462 Unknown [id number] 2.16.840.1.293044.3.579.2. 462 Unknown [id number] 2.16.840.1.191709.3.579.2. 462 Unknown [id number] 2.16.840.1.597389.3.579.2. 462 Unknown [id number] 2.16.840.1.590062.3.579.2. 462 Unknown [id number] 2.16.840.1.679114.3.579.2. 462 Unknown [id number] 2.16.840.1.100936.3.579.2. 462 Unknown [id number] 2.16.840.1.343112.3.579.2. 462 Unknown [id number] 2.16840.1.728962.3.579.2. 462 Unknown [id number] 2.16840.1.889696.3.579.2. 462 Unknown [id number] 2.16840.1.786524.3.579.2. 462 Unknown [id number] 2.16840.1.079180.3.579.2. 462 Unknown [id number] 2.16840.1.282686.3.579.2. 462 Unknown [id number] 2.16.840.1.059812.3.579.2. 462 Unknown [id number] 2.16840.1.237710.3.579.2. 462 Unknown [id number] 2.16840.1.778636.3.579.2. 462 Unknown [id number] 2.16.840.1.870646.3.579.2. 462 Unknown [id number] 2.16.840.1.961752.3.579.2. 462 Unknown [id number] 2.16.840.1.495812.3.579.2. 462 Unknown [id number] 2.16840.1.359927.3.579.2. 462 Unknown [id number] 2.16840.1.919537.3.579.2. 462 Unknown [id number] 2.16840.1.959308.3.579.2. 462 Unknown [id number] 2.16.840.1.208518.3.579.2. 462 Unknown [id number] 2.16840.1.943340.3.579.2. 462 Unknown [id number] 2.16840.1.152637.3.579.2. 462 Unknown [id number] 2.16840.1.571780.3.579.2. 462 Unknown [id number] 2.840.1.682556.3.579.2. 462 Social History Date Type Detail Facility Start: 12-19-2011 Tobacco smoking stat [facility] Never smoked tobacco [facility] Start: 07-12-2021 End: 04-30-2022 Alcohol intake Current non-drinker of alcohol (finding) [facility] Start: 1975 Sex Assigned At Female [facility] Start: 03-05-2022 End: 07-10-2022 Tobacco smoking status CTIS Unknown if ever smoked [facility] Work Phone: Start: 12-19-2011 Tobacco use and exposure Smokeless tobacco non-user [facility] Start: 08-19-2022 End: 02-13-2023 History of Social function [facility] Start: 08-19-2022 End: 02-13-2023 Tobacco use panel [facility] Adult Depression Screening Assessment 0 [facility] Start: 08-01-2021 Gender identity Identifies as female gender (finding) [facility] Start: 08-01-2021 Sexual orientation Heterosexual (yomaira rangel) [facility] Medical Equipment Procedure Code Equipment Code Equipment Origin al Text Equipment Identifier Dates Blood Sugar Diagnostic (Accu-Chek Guide Test Strips) strip Start: 09-03-2021 Lancets (Accu-Ch ek Fastclix Lancet Drum) misc Start: 09-03-2021 Blood Sugar Diagnostic (Accu-Chek Guide Test Strips) strip Start: 12-21-2021 Lancets (Accu-Ch ek Fastclix Lancet Drum) [facility] Start: 09-03-2021 Blood Sugar Diagnostic (Accu-Chek Guide Test Strips) strip Start: 09-03-2021 Lancets (Accu-Ch ek Fastclix Lancet Drum) [facility] Start: 09-03-2021 Blood Sugar Diagnostic (Accu-Chek Guide Test Strips) strip Start: 09-03-2021 Lancets (Accu-Ch ek Fastclix Lancet Drum) [facility] Start: 09-03-2021 Clinical Notes 01-16-2014 to 09-09-2024 Tad Andersen, PhD - 04/13/2023 9:24 AM EDTTelephone Encounter - Roxanne Montanez - 02/16/2023 8:30 AM EDTPatient Vaishnavi Mazariegos - 02/13/2023 2:20 PM EDT Note Date & Type Note Facility 09-09-2024 [facility] Medical Records Department [address] [place] [id number] History Physical Exam 09/09/24 1133 MR#: [id number] Acct: [id number] Name: JOANNE STALLWORTH Rep #: [id number] : 1975 49 From: Marino Trotter DO PCP: Dr. Rogers Bellamy MD Status:[facility] Location: [place] [address] HPI - General General Date of Admission: 09/09/24 Date of Service: 09/09/24 Chief Complaint: Screening colon HPI Narrative JOANNE STALLWORTH, is a 49 F who presents today for a screening colonoscopy. 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 She is not having any medical problems at this time. [facility] Medical History Wears glasses Depression Anxiety Injury [...] Flushing Verified 12 (more content not included)... [facility] 06-26-2023 Note HNO ID: [id number] Author: Froilan Brown, DO Service: ? Author [...] due to remote insult/minimal chronic microvascular change. Measurement And Verification Engineer: CHAPARRO Transcribe Date/Time: Aug 22 2022 6:26P Dictated by : JO KATHLEEN MD This examination was interpreted and the report reviewed and electronically signed by: JO KATHLEEN MD on Aug 22 2022 6:44PM EST Results-Findings * * *Final Report* * * DATE OF EXAM: Aug 22 2022 4:42PM ZEYAD [id number] - MRI BRAIN WO IVCON / [...] Role Function-Preventive T (more content not included)... [facility] 05-02-2023 Note HNO ID: [id number] Author: Sadie Veag MD Service: ? Author Type: Physician Type: Progress Notes Filed: 05/02/2023 3:09 PM Note Text: Neurology Return, [facility], virtual Patient's clinic evaluation was scheduled as a virtual visit using [employer] platform. I have communicated my name and active licensure. The patient's identity and physical location were verified at the time of this visit. Either the patient or their legal financial representative has been informed of the risks [...] please rate ho (more content not included)... [facility] 04-13-2023 Note HNO ID: [id number] Author: Tad Andersen, PhD Service: ? 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 This neuropsychological assessment is part of a multidisciplinary evaluation conducted in the [facility]. The assessment consisted of a brief interview [...] years ago. 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 She reports stress related to management [...] high average. Processing speed on a digit-symbol biomechanical engineer task was average. Speeded color naming was average, and speeded word reading was average. Performance on a sustained attention task showed poor vigilance and inattentiveness. Executive functioning: Mental flexibility and visuomotor set shifting was high average. Verbal response inhibition was extremely low, and the same task with a set switching component was average. Qualitatively, the rewind operator observed the patient to slow down on [...] normal limits Visuospati (more content not included)... 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 She reports stress related to management [...] high average. Processing speed on a digit-symbol biomechanical engineer task was average. Speeded color naming was average, and speeded word reading was average. Performance on a sustained attention task showed poor vigilance and inattentiveness. Executive functioning: Mental flexibility and visuomotor set shifting was high average. Verbal response inhibition was extremely low, and the same task with a set switching component was average. Qualitatively, the rewind operator observed the patient to slow down on [...] forensic, disability, or workers' compensation evaluation. Tad Andersen Ph.D., ABPP-CN Board Certified in Clinical Neuropsychology Neurobehavioral status exam/clinical interview by neuropsychologist = 1 hour Neuropsychological evaluation services by neuropsychologist = 2 hours Neuropsychological test administration/scoring by rewind operator = 3 hours documented in this encounter [facility] 02-16-2023 Miscellaneous Notes Summary: appointments Lvm for patient to call so we can get her scheduled for a report visit with Dr Vega documented in this encounter [facility] 02-13-2023 Instructions Sadie Vega MD - 02/13/2023 5:20 PM EDT Recommend: Sleep behavioral medicine for insomnia management Follow up with her sleep provider to ensure adequate treatment of sleep apnea Optimal behavioral health management for stress, defer to her psychiatrist for potential therapy Neuropsychology testing for cognitive baseline Get B12 level Return after neuropsychology testing Please call [phone] for scheduling documented in this encounter [facility] 02-13-2023 Nurse Note Joanne Stallworth is a 47 year old year old right handed woman Accompanied by: mother. 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 What would you like to accomplish with this visit today? 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 She did not lose consciousness. Serological [...] problems. Nilson Cognitive Assessment (MoCA) COGNITIVE TESTING: [place] cognitive assessment test version 7.1 was 27/30. [...] level Return after neuropsychology testing Please call [phone] for scheduling ADMINISTRATIVE BILLING I spent a total of 60 minutes on the date of the service which included preparing to see the patient, [id number] patient care, completing clinical documentation, obtaining and/or [...] are unintentional. cc: Froilan Brown [address] [facility] [address] documented in this encounter [facility] 02-13-2023 Note HNO ID: [id number] Author: Sadie Vega MD Service: ? 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 She did not lose consciousness. Serological [...] health is: G (more content not included)... [facility] 10-31-2022 Miscellaneous Notes prior authorization submitted via cover my meds Joanne Stallworth Diamond: [id number] - PA Status-Sent to [facility]-Ubrelvy 100MG tablets Form-[facility] Commercial Electronic PA Form (2016 PAPDP) Patient sent [employer] message on 10/28 asking for status. Prior Authorization for Medications Requested by ([employer], Pharmacy, Patient Call, Fax) : [place] Pharmacy Name: [facility] Pharmacy Phone # : [phone] Name of Medication : Ubrelvy Dose : 100 mg tablets If renewal, auth date expiration: NA Prescribing Provider: Last OV: 08/20/2022 with [place] Insurance Provider : [facility] / [employer] Is insurance card scanned in, including Rx info? Yes Rx ID number: [id number] Rx BIN: [id number] Rx PCN: [id number] Rx Grp: [id number] Insurance Phone : CoverMyMeds Diamond: NA E-PA? Yes documented in this encounter [facility] 08-22-2022 History of Present illness Narrative Radiology [...] 2022 4:23 PM documented in this encounter [facility] 08-20-2022 History of Present illness Narrative Headache [...] (Maxalt) Sumatriptan (Imitrex, Sumavel) Analgesic Hydrocodone/Acetaminophen (Vicodin, [place]) Ketorolac (Toradol) Etodolac Gepants Nurtec ---> Preventive Treatment: -Cymbalta 90 mg daily [...] Dose Reason for Discontinuation Analgesic Hydrocodone/Acetaminophen (Vicodin, [place]) Ketorolac (Toradol) Etodolac Anti-Convulsant Gabapentin (Neurontin) Zonisamide [...] Motrin) Naproxen sodium (Aleve) Froilan Brown DO [facility] [place] [facility] Chronic Pain [facility] [address] [place] [address] Level of service: Est level 3 (20-29 min). Time spent 25 min on the day of service, which included preparing to see the patient, [id number] patient care, completing clinical documentation, obtaining and/or reviewing separately obtained history, counseling and educating the patient/family/caregiver, and ordering medications, tests, or procedures. Medical Decision Making: Medical Decision Making Level: 1 - N/A cc: Tico Walker MD [address] [place] [address] documented in this encounter [facility] 01-31-2022 Miscellaneous Notes Received approval via fax from [employer] [facility]. Effective 01/30/2022 - 01/30/2023 Reference # [id number] Uploaded to chart via [employer]Base. Completed PA over covermymds: If [employer] has not replied to your request within 24 hours please contact [employer] at [phone]. Joanne Stallworth (Diamond: [id number]) Rx #: [id number] Nurtec 75MG dispersible tablets Form [facility] [employer] Electronic PA Form (2016 [facility]) Wait for Determination, Cira Prescott Images from the original note were not included. Received faxed notification from [facility] stating PA needed on Nurtec 75mg. documented in this encounter [facility] 01-14-2022 History of Past i llness Narrative Problem Noted Date Diagnosed Date Resolved Date Chronic tension-type headache, intractable 01/14/2022 06/26/2023 Chronic daily headache 01/14/202206/26 Migraine without aura 01/16/20142014 documented as of this encounter (statuses as of 07/19/2023) [facility] History of Present illness Narrative* Froilan Brown [...] (Maxalt) Sumatriptan (Imitrex, Sumavel) Analgesic Hydrocodone/Acetaminophen (Vicodin, [place]) Ketorolac (Toradol) Etodolac ---> Preventive Treatment: -Cymbalta [...] Dose Reason for Discontinuation Analgesic Hydrocodone/Acetaminophen (Vicodin, [place]) Ketorolac (Toradol) Etodolac Anti-Convulsant Gabapentin (Neurontin) Zonisamide (Zonegram) Anti-Depressant and Antipsychotic Duloxetine (Cymbalta) Fluoxetine (Prozac) Mirtazapine (Remeron) Ziprasidone (Geodon) Nebivolol, Olmesartan Anti-Migraine Rizatriptan (Maxalt) Sumatriptan (Imitrex, Sumavel) Blood Pressure Lisinopril (Zestril) Losartan (Cozaar) Metoprolol (Lopressor,Toprol XL) HCTZ, Benicar Sleep Aids Trazodone (Desyrel) Zolpidem (Ambien) Supplements CoQ10 Magnesium Riboflavin Froilan Brown DO [facility] [place] Department of Neurology [facility] - Headache and Chronic Pain Medicine [address] [place] [address] Level of service: Est level 3 (20-29 min). Time spent 20 min on the day of service, which included preparing to see the patient, [id number] patient care, completing clinical documentation, obtaining and/or reviewing separately obtained history, counseling and educating the patient/family/caregiver and ordering medications, tests, or procedures. Medical Decision Making cc: Tico Walker MD [address] [place] [address] [facility] of Past illness Narrative* Problem Noted Date Resolved Date Migraine without aura 01/16/2014 04/11/2015 documented as of this encounter (statuses as of 01/14/2022) [facility] History of Past illness Narrative* Problem Noted Date Resolved Date Migraine without aura 01/16/2014 04/11/2015 documented as of this encounter (statuses as of 01/31/2022) [facility] History of Past illness Narrative* Problem Noted Date Resolved Date Migraine without aura 01/16/2014 04/11/2015 documented as of this encounter (statuses as of 08/20/2022) [facility] of [facility] illness Narrative* Problem Noted Date Resolved Date Migraine without aura 01/16/2014 04/11/2015 documented as of this encounter (statuses as of 09/03/2022) [facility] of Past illness Narrative* Problem Noted Date Resolved Date Migraine without aura 01/16/2014 04/11/2015 documented as of this encounter (statuses as of 09/22/2022) [facility] of [facility] illness Narrative* Problem Noted Date Resolved Date Migraine without aura 01/16/2014 04/11/2015 documented as of this encounter (statuses as of 10/31/2022) [facility] of [facility] illness Narrative* Problem Noted Date Resolved Date Migraine without aura 01/16/2014 04/11/2015 documented as of this encounter (statuses as of 02/14/2023) [facility] of [facility] illness Narrative* Problem Noted Date Resolved Date Migraine without aura 01/16/2014 04/11/2015 documented as of this encounter (statuses as of 02/16/2023) [facility] of [facility] Narrative* Problem Noted Date Diagnosed Date Resolved Date Migraine without aura 01/16/20142014 documented as of this encounter (statuses as of 04/14/2023) [facility] of [facility] illness Narrative* Problem Noted Date Diagnosed Date Resolved Date Migraine without aura 01/16/20142014 documented as of this encounter (statuses as of 04/14/2023) [facility] Migraine without aura and without status migrainosus, not intractable- Primary Migraine without aura, without mention of intractable migraine without mention of status migrainosus Migraine with aura and without status migrainosus, not intractable Migraine with aura, without mention of intractable migraine without mention of status migrainosus Chronic daily headache Headache Chronic tension-type headache, intractable Chronic tension type headache [facility] Diagnosis Onset Date Resolution Status Chronic diarrhea chronic Fatty liver disease, nonalcoholic chronic Hypertension chronic Morbid obesity chronic Type 2 diabetes mellitus chr onic GERD (gastroesophageal reflux disease) acute Chronic diarrhea chronic Fatty liver disease, nonalcoholic chronic Menstrual irregularity acute Hypertension chronic Morbid obesity chronic Type 2 diabetes mellitus chr onic [facility] Work Phone: Evaluation note* Diagnosis Onset Date Resolution Status COVID-19 acute Fatty liver disease, nonalcoholic chronic Liver fibrosis chronic Flu vaccine need acute Anxiety and depression chron ic Hypertension chronic Morbid obesity chronic Type 2 diabetes mellitus [facility] Work Phone: Evaluation note* Diagnosis Onset Date Resolution Status Fatty liver disease, nonalcoholic chronic Liver fibrosis chronic Flu vaccine need acute Anxiety and depression chron ic Hypertension chronic Morbid obesity chronic Type 2 diabetes mellitus [facility] Work Phone: Evaluation note* Diagnosis Migraine [...] impairment Memory loss [facility] Diagnosis Abnormal brain MRI- Primary Nonspecific (abnormal) findings on radiological and other examination of skull and head Memory impairment Memory loss Cognitive complaints Other signs and symptoms involving cognition [facility] Diagnosis Memory impairment- Primary Memory loss Cognitive complaints Other signs and symptoms involving cognition Psychophysiologic insomnia Persistent disorder of initiating or maintaining sleep Stress at work Adverse effects of work environment Obstructive sleep apnea Obstructive sleep apnea (adult) (pediatric) [facility] Diagnosis Cognitive disorder- Primary Unspecified persistent mental disorders due to conditions classified elsewhere Migraine aura without headache Migraine with aura, without mention of intractable migraine without mention of status migrainosus ELVIS (obstructive sleep apnea) Obstructive sleep apnea (adult) (pediatric) [facility] Cognitive impairment, mild, so stated Mild cognitive impairment, so stated Memory impairment Memory loss documented in this encounter [facility] Chief Complaint and Reason for Visit Chief [...] Yes November 27, 2021 5:40pm Power of Newscast Producer Yes November 27 5:40pm Advance Directive Response Recorded Date/ Time Living Will Yes November 27, 2021 4:40pm Power of Newscast Producer Yes November 27 4:40pm Reason for Referral Specialty Diagnoses / Procedures Referred By Narcisa villanueva Referred To Contact MR IMAGING Diagnoses Cognitive impairment, mild, so stated Memory impairment Procedures MRI BRAIN WO IVCON MRI BRAIN BRAIN STEM W/O CONTRAST MATERIAL Froilan Brown P, DO [address] [place] [address] Mr Imaging Referral ID Status Reason Start Date Expiration Date Visits Requested Visits Authorized [id number] Pending Review Auto-Generat ed Referral 08/20/2022 09/19/2023 1 1 Specialty Diagnoses / Procedures Referred By Narcisa villanueva Referred To Contact Neurology Diagnoses Abnormal brain MRI Memory impairment Cognitive complaints Procedures CONSULT TO NEUROLOGY OFFICE/OUTPATIENT [facility] 60-74 MINUTES Froilan Brown P, DO [address] [place] [address] Referral ID Status Reason Start Date Expiration Date Visits Requested Visits Authorized [id number] Authorized PCP Requested Referral 09/21/2022 09/21/2023 1 1 Specialty Diagnoses / Procedures Referred By Narcisa villanueva Referred To Contact MR IMAGING Diagnoses Cognitive impairment, mild, so stated Memory impairment Procedures MRI BRAIN WO IVCON MRI BRAIN BRAIN STEM W/O CONTRAST MATERIAL Froilan Brown, DO [address] [place] [address] [place] [id number] Referral ID Status Reason Start Date Expiration Date V isits Requested Visits Authorized [id number] Closed Auto-Generate d Referral 08/21/2022 09/13/2022 1 1 Summary Purpose Additional Source Comments Source Comments (unrecognize d section and content) In the event this informatio n is protected by the Federal Confidentiality of Alcohol and Drug Abuse Patient Records regulations: The Federal rules restrict any use of the information to criminally investigate or prosecute any alcohol or drug abuse patient.[facility] the event this information is protected by the Federal Confidentiality of Alcohol and Drug Abuse Patient Records regulations: The Federal rules restrict any use of the information to criminally investigate or prosecute any alcohol or drug abuse patient.[facility] the event this information is protected by the Federal Confidentiality of Alcohol and Drug Abuse Patient Records regulations: The Federal rules restrict any use of the information to criminally investigate or prosecute any alcohol or drug abuse patient.[facility] the event this information is protected by the Federal Confidentiality of Alcohol and Drug Abuse Patient Records regulations: The Federal rules restrict any use of the information to criminally investigate or prosecute any alcohol or drug abuse patient.[facility] the event this information is protected by the Federal Confidentiality of Alcohol and Drug Abuse Patient Records regulations: The Federal rules restrict any use of the information to criminally investigate or prosecute any alcohol or drug abuse patient.[facility] the event this information is protected by the Federal Confidentiality of Alcohol and Drug Abuse Patient Records regulations: The Federal rules restrict any use of the information to criminally investigate or prosecute any alcohol or drug abuse patient.[facility] the event this information is protected by the Federal Confidentiality of Alcohol and Drug Abuse Patient Records regulations: The Federal rules restrict any use of the information to criminally investigate or prosecute any alcohol or drug abuse patient.[facility] the event this information is protected by the Federal Confidentiality of Alcohol and Drug Abuse Patient Records regulations: The Federal rules restrict any use of the information to criminally investigate or prosecute any alcohol or drug abuse patient.[facility] the event this information is protected by the Federal Confidentiality of Alcohol and Drug Abuse Patient Records regulations: The Federal rules restrict any use of the information to criminally investigate or prosecute any alcohol or drug abuse patient.[facility] the event this information is protected by the Federal Confidentiality of Alcohol and Drug Abuse Patient Records regulations: The Federal rules restrict any use of the information to criminally investigate or prosecute any alcohol or drug abuse patient.[facility] the event this information is protected by the Federal Confidentiality of Alcohol and Drug Abuse Patient Records regulations: The Federal rules restrict any use of the information to criminally investigate or prosecute any alcohol or drug abuse patient.[facility] Reason for Visit (unrecogniz ed section and content) Reason Comments Migraine Reason Comments Insurance Authorization Nurtec 75mg 05/13 Reason Comments Migraine Reason Comments Insurance Authorization Ubrelvy Reason Comments Consult Specialty Diagnoses / Procedures Referred By Narcisa villanueva Referred To Contact Neurology Diagnoses Abnormal brain MRI Memory impairment Cognitive complaints Procedures CONSULT TO NEUROLOGY OFFICE/OUTPATIENT NEW HIGH MDM 60-74 MINUTES Froilan Brown, DO [address] [place] [address] Referral ID Status Reason Start Date Expiration Date V isits Requested Visits Authorized [id number] Closed PCP Requested Referral 09/21/2022 09/21/2023 1 [...] STEM W/O CONTRAST MATERIAL Froilan Brown, DO [address] [place] [id number] Mr Imaging [place] [address] Referral ID Status Reason Start Date Expiration Date V isits Requested Visits Authorized [id number] Closed Auto-Generate d Referral 08/21/2022 09/13/2022 1 1 Care Teams (unrecognized sec tion and content) Supply Aide Relationship Specialty Start Date End Date Tico Walker MD PCP - General Family Practice 12/25/11 Supply Aide Relationship Specialty Start Date End Date Tico Walker MD PCP - General Family Practice 12/25/11 Supply Aide Relationship Specialty Start Date End Date Tico Walker MD PCP - General Family Medicine 12/25/11 Supply Aide Relationship Specialty Start Date End Date Tico Walker MD PCP - General Family Medicine 12/25/11 Supply Aide Relationship Specialty Start Date End Date Tico Walker MD PCP - General Family Medicine 12/25/11 Supply Aide Relationship Specialty Start Date End Date Tico Walker MD PCP - General Family Medicine 12/25/11 10/09/22 Goals (unrecognized section and content) Goals may be documented in a n alternate sectionGoals may be documented in an alternate sectionGoals may be documented in an alternate sectionGoals may be documented in an alternate section INFORMATION SOURCE (unrecogn ized section and content) DATE CREATED AUTHOR 02/14/2024 [facility] DATE CREATED AUTHOR 'S CELIO CANAS 06/30/2025 [facility] FOR RECORDS PERTAINING TO PATIENTS WHO ARE [...] BE BASED ON THE PRIMARY CLINICAL RECORDS. [facility]. provides no warranty or guarantee of the accuracy or completeness of information in this document.
--- NOTE | 2025-07-01 08:31 | US_ITS ---
PROCEDURE: ABD LIMITED W/ ELASTOGRAPHY REASON FOR EXAM: FATTY LIVER COMPARISON: Prior study dated September 05, 2024. TECHNIQUE: Procedure Code: [id number] Modality: US Procedure: ABD LIMITED W/ ELASTOGRAPHY Right upper quadrant abdominal ultrasound. [facility] shear wave elastography for non-invasive assessment of liver tissue stiffness. [facility] EPIQ Elite. FINDINGS: LIVER: Size: Enlarged (hepatomegaly) Length: 19.1 cm Echotexture: Diffusely echogenic suggesting fatty infiltration Contour: Normal Lesions: None identified Elastography: EQI Med: 3.3 kPa EQI Med Ras: 1.03 m/s IQR/Med: 3.8 %* GALLBLADDER: Solitary gallstone measuring 1.3 cm x 1.3 cm x 0.8 cm. Sludge is seen within the gallbladder lumen. COMMON BILE DUCT: Normal measuring 4.7 mm. . PANCREAS: Visualized portions are unremarkable. The distal body and tail are obscured by bowel gas. Visualized portions of the right kidney are unremarkable. Incidental note is made of a 5 mm x 6 mm x 3 mm nonobstructive right intrarenal calculus. No right upper quadrant ascites. US/ABD Limited w/ Elastography IMPRESSION: NO TO MILD HEPATIC FIBROSIS Solitary gallstone. Reference Values: SRU <1.37 m/s (5.7kPa): No to mild fibrosis 1.37 m/s - 2.2 m/s: Moderate to severe fibrosis >2.2 m/s (15kPa): Significant fibrosis / cirrhosis METAVIR Score F2 or higher: 1.34 m/s (5.7kPa) F3 or higher: 1.55 m/s (7.3kPa) F4: 1.80 m/s (10kPa) * If the IQR/Med is >30%, the variance in the measurements is a large and the a ccuracy of the measurement may be in question. Reading Location: [place] [id number]
== END | disposition home or self-care (01) ==
LOC: US 08:24
PROVIDERS: PCP Internal Medicine; Referring Provider Internal Medicine Gastroenterology; Visit Provider Internal Medicine Gastroenterology
DX: K74.00 Hepatic fibrosis, unspecified (principal); K76.0 Fatty (change of) liver, not elsewhere classified
CPT/HCPCS: 76705; 76981

== ENCOUNTER → 2025-08-05 | Outpatient (CLI) | payer OTHER, SELFPAY ==
--- OUTSIDE RECORDS SUMMARY | 2025-08-05 09:23 | XMS RPT_ITS | CCD ---
Author Organization [facility] CliniSyma Care Team Providers Care Learning Disabilities Resource Teacher Name Role Phone Tico Walker MD Primary Care Provider [phone] Dr. Rogers Bellamy Primary Care Provider [phone] Dr. Rogers Bellamy Attending Provider [phone] Dr. Rogers Bellamy Referring Provider [phone] Dr. Marino Trotter Attending Provider [phone] Dr. Rogers Bellamy Primary Care Provider [phone] Dr. Rogers Bellamy Referring Provider [phone] CHETAN Poon Attending Provider FriendDr. Pichardo Attending Provider [phone] Dr. Rogers Bellamy Attending Provider [phone] Dr. Rogers Bellamy Primary Care Provider [phone] Dr. Rogers Bellamy Referring Provider [phone] Tico Walker MD Primary Care Provider [phone] Tico Walker MD Primary Care Provider Unavailable Primary Care Provider UnavailTico Mata MD Primary Care Provider TAD ANDERSEN Attending Unavailable GARY, SADIE Referring Unavailable GARY, SADIE Attending Unavailable CHASITY HENAOIC P Referring Unavailable GARY, SADIE Referring Unavailable GARY, SADIE Attending Unavailable FROILAN HENAO P Attending Unavailable Velma Bellamybe Referring Unavailable Rogers Bellamy Primary Care Unavailable Oleghe, Efewongbe Attending Unavailable Oleghe, Efewongbe Primary Care Unavailable Arpil Schmidt Attending Unavailable April Schmidt Referring Unavailable Oleghe, Efewongbe Primary Care Unavailable Josselyn [...] Unavailable Beatrice Martin Referring Unavailable Oleghe, Efewongbe Primary Care Unavailable Beatrice Martin Attending Unavailable Beatrice Martin Referring Unavailable Anna Huang Consulting Unavailable Oleghe, Efewongbe Attending Unavailable Oleghe, Efewongbe Referring Unavailable Oleghe, Efewongbe Primary Care Unavailable Oleghe, Efewongbe Referring Unavailable Oleghe, Efewongbe Primary Care Unavailable Beatrice Martin Attending Unavailable Oleghe, Efewongbe Attending Unavailable Oleghe, Efewongbe Referring Unavailable Oleghe, Efewongbe Primary Care Unavailable Maciel Alcaraz Attending Unavailable Oleghe, Efewongbe Primary Care Unavailable Fernando Tavares Attending Unavailable Oleghe, Efewongbe Referring Unavailable Oleghe, Efewongbe Primary Care Unavailable Sergo, Marino Attending Unavailable Oleghe, Efewongbe Referring Unavailable Oleghe, Efewongbe Primary Care Unavailable Anna Huang Attending Unavailable Anna Huang Referring Unavailable Oleghe, Efewongbe Primary Care Unavailable April Schmidt Attending Unavailable April Schmidt Referring Unavailable Oleghe, Efewongbe Primary Care Unavailable Oleghe, Efewongbe Primary Care Unavailable Friend, Marino Attending Unavailable Friend, Marino Referring Unavailable Oleghe, Efewongbe Primary Care Unavailable Oleghe, Efewongbe Referring Unavailable Oleghe, Efewongbe Attending Unavailable Oleghe, Efewongbe Primary Care Unavailable Marino Trotter Attending Unavailable Friend, Marino Referring Unavailable Oleghe, Efewongbe Primary Care Unavailable Maciel Alcaraz Attending Unavailable Oleghe, Efewongbe Primary Care Unavailable Friend, Marino Attending Unavailable Friend, Marino Consulting Unavailable Oleghe, Efewongbe Referring Unavailable Friend, Marino Attending Unavailable Oleghe, Efewongbe Referring Unavailable Oleghe, Efewongbe Primary Care Unavailable Oleghe, Efewongbe Referring Unavailable Oleghe, Efewongbe Primary Care Unavailable Oleghe, Efewongbe Attending Unavailable Oleghe, Efewongbe Primary Care Unavailable Maciel Alcaraz Attending Unavailable Oleghe, Efewongbe Attending Unavailable Oleghe, Efewongbe Referring Unavailable Oleghe, Efewongbe Primary Care Unavailable Anna Huang Attending Unavailable Anna Huang Referring Unavailable Oleghe, Efewongbe Primary Care Unavailable Oleghe, Efewongbe Primary Care Unavailable Friend, Marino Attending Unavailable Oleghe, Efewongbe Referring Unavailable Anna Huang Attending Unavailable Anna Huang Referring Unavailable Oleghe, Efewongbe Primary Care Unavailable Allergies Allergy Classification Reported Allergen(s) Allergy Type Date of Onset Reaction(s) Facility (16 sources) Azithromycin; Translations: [AZITHROMYCIN] Drug Allergy 6 [facility] Work Phone: (16 sources) diazePAM; Translations: [DIAZEPAM] Drug Allergy 2 Other: See Comments [facility] (16 sources) Lisinopril; Translations: [LISINOPRIL] Drug Allergy 9 Other [facility] Work Phone: (16 sources) predniSONE; Translations: [PREDNISONE] Drug Allergy 2 Other: See Comments [facility] (1 source) paper tape Allergy to substance 2 blister [facility] Work Phone: (4 sources) water proof tape Allergy to substance [address] [facility] Work Phone: (4 sources) Adhesive Tape; Translations: [adhesive tape] Allergy to substance 2 Other [facility] Repository (1 source) Adhesive agent Drug allergy (disorder) 5 [facility] Repository (1 source) Azithromycin Drug Allergy 5 [facility] Repository (1 source) diazePAM Drug Allergy 5 [facility] Repository (1 source) Lisinopril Drug Allergy 5 [facility] Repository (1 source) predniSONE Drug Allergy 5 [facility] Repository Medications Current Medications Medication Drug [...] 0 02/12/2009 Active take 1 capsule by [facility] every twenty-four hours as needed DULoxetine (CYMBALTA) [...] 03, 2021 2:53pm take 2 tablets by [facility] twice daily metFORMIN (GLUCOPHAGE) 500 mg tablet Take 500 mg by mouth twice daily. 2 tabs twice daily 0 Active take 1 tablet by [facility] four times daily metFORMIN (GLUCOPHAGE) 500 mg [...] Take 25 mg by mouth twice daily. [place]-3 Fatty Acids (Fish Oil Concentrate) 1,000 mg capsule (4 sources) Start: 10-18-2018 take 1 capsule by mouth once daily [place]-3 Fatty Acids (Fish Oil Concentrate) 1,000 mg capsule Active 1000 MG PO DAILY October 18, 2018 12:00am Start: 10-18-2018 take 1 capsule by mo ut once daily [place]-3 Fatty Acids (Fish Oil Concentrate) 1,000 mg [...] BEDTIME October 18, 2018 1:00am vitamin a 62074 unt oral tablet (4 sources) Vitamin A Start: 10-18-2018 take 80247 [IU] by mouth once daily Vitamin A Palmitate Active 43107 UNIT PO DAILY October 18, 2018 12:00am [...] Start: 07-10-2022 take 1 capsule by mo [facility] twice daily Celecoxib (Celebrex) 200 mg capsule Active 200 MG PO TWICE A DAY July 09, 2022 11:00pm Comment on above: TAKE 1 CAPSULE BY MO [facility] TWICE A DAY NEEDED FOR [...] mg tablet Active 10 MG PO DAILY Zoey 21st, 2022 11:00pm hydroCHLOROthiazide 25 mg oral tablet [...] take 0.25 mg by mouth at bedti mn Ropinirole Active 0.25 MG PO AT BEDTIME [...] on above: Take 1 capsule by mo ut once daily. Take 300 mg by mouth [...] [Cellulitis of left upper limb] Episodic Unclassified (1 source) Hepatic fibrosis, unspecified; Translations: [Hepatic fibrosis, unspecified] [...] Test Name Value Interpretation Reference Range Facility ABD Limited w/ Elastographyo n 07-01-2025 ABD Limited w/ Elastography [facility] Imaging Services [address] [place], [place] [address] ABD Limited w/ Elastography MR#: [id number] Acct: [id number] Name: JOANNE STALLWORTH Rep #: [id number] : 1975 F 49 From: Adán franklin MD PCP: Dr. Rogers Bellamy MD Status: REG CLI Study: ABD Limited w/ Elastography Date of Exam: 06/14 05/08 Exam# [id number] Ordering Dr: Marino Trotter DO PROCEDURE: ABD LIMITED W/ ELASTOGRAPHY REASON FOR EXAM: FATTY LIVER COMPARISON: Prior study dated September 05, 2024. TECHNIQUE: Procedure Code: USABDLELPARO Modality: US Procedure: ABD LIMITED W/ ELASTOGRAPHY Right upper quadrant abdominal ultrasound. [facility] ElastQ [facility] shear wave elastography for non- invasive assessment of liver tissue stiffness. Bonnie EPIQ Elite. FINDINGS: LIVER: Size: Enlarged (hepatomegaly) Length: 19.1 cm Echotexture: Diffusely echogenic suggesting fatty infiltration Contour: Normal Lesions: None identified Elastography: EQI Med: 3.3 kPa EQI Med Ras: 1.03 m/s IQR/Med: 3.8 %* GALLBLADDER: Solitary gallstone measuring 1.3 cm x 1.3 cm x 0.8 cm. Sludge is seen within the gallbladder lumen. COMMON BILE DUCT: Normal measuring 4.7 mm. . PANCREAS: Visualized portions are unremarkable. The distal body and tail are obscured by bowel gas. Visualized portions of the right kidney are unremarkable. Incidental note is made of a 5 mm x 6 mm x 3 mm nonobstructive right intrarenal calculus. No right upper quadrant ascites. US/ABD Limited w/ Elastography IMPRESSION: NO TO MILD HEPATIC FIBROSIS Solitary gallstone. Reference Values: SRU <1.37 m/s (5.7kPa): No to mild fibrosis 1.37 m/s - 2.2 m/s: Moderate to severe fibrosis >2.2 m/s (15kPa): Significant fibrosis / cirrhosis METAVIR Score F2 or higher: 1.34 m/s (5.7kPa) F3 or higher: 1.55 m/s (7.3kPa) F4: 1.80 m/s (10kPa) * If the IQR/Med is >30%, the variance in the measurements is a large and the accuracy of the measurement may be in question. Reading Location: [place] [address] CC: Dr. Rogers Bellamy MD; Marino Trotter DO Plastics Scientist: Signed Normal [facility] MR/BMS.BPon 06-20-2025 MR/BMS.BP [facility] [address], [address] [place] [address] OFFICE VISIT Date of Service: 06/20/25 MR#: [id number] Acct: [id number] Name: JOANNE STALLWORTH Rep #: [id number] : 1975 Provider: Dr. Maciel Shabazz se, DO Age/Sex: 49/F [place] [facility] Status: Signed Intake Vital Signs 04/17/25 15:43 [...] QWEEK 06/20/25 06/20/25 History subcutaneous pen injector (Osman) [facility] Medical History (Updated 05/22/25 @ 09:42 [...] of br (more content not included)... Normal [facility] Gastroenterology Visit Repor ton 06-02-2025 Gastroenterology Visit Report [facility] Gastroenterology [address] [place] [place] [address] OFFICE VISIT Date of Service: 06/02/25 MR#: [id number] Acct: [id number] Name: JOANNE STALLWORTH Rep #: [id number] : 1975 Provider: Marino Trotter DO Age/Sex: 49/F [place] [facility] Status: Signed Intake Vital Signs 12/05/24 09:52 [...] DAILY #90 TABLETS 06/02/25 Rx tablet,extended release [facility] Medical History (Updated 05/22/25 @ 09:42 [...] Anemia D (more content not included)... Normal [facility] Internal Medicine Office Vis iton 05-22-2025 Internal Medicine Office Visit [facility] [address] [place] [address] [place] [address] OFFICE VISIT Date of Service: 05/22/25 MR#: [id number] Acct: [id number] Name: JOANNE STALLWORTH Rep #: [id number] : 1975 Provider: Dr. Rogers draper MD Age/Sex: 49/F Location[place] [facility] Status: Signed Intake Vital Signs 01/18/25 09:52 [...] mg PO QDAY 05/22/25 05/22/25 His tory [facility] Medical History (Updated 05/22/25 @ 09:42 [...] 2 di (more content not included)... Normal [facility] AST(SGOT)on 05-13-2025 AST [Catalytic activity/Vol] 19 U/L Normal <=31 [facility] Comment on above: Performed By: #### L 501.4100, L501.9985, L501.4405, L500.2500, L502.0250, L500.4100 ####[facility] [address] [place], [address] Alanine Aminotransferas (SGP T)on 05-13-2025 ALT [Catalytic activity/Vol] 19 U/L Normal <=34 [facility] Comment on above: Performed By: #### L 501.4100, L501.9985, L501.4405, L500.2500, L502.0250, L500.4100 ####[facility] [address] [place], [address] Basic Metabolic Profile (BMP )on 05-13-2025 BUN/CRE 22.3 RATIO High 10-20 [facility] Comment on above: Performed By: #### L 501.4100, L501.9985, L501.4405, L500.2500, L502.0250, L500.4100 ####[facility] [address] [place], [address] Calcium [Mass/Vol] 9.5 mg/dL Normal 7.6-11.0 [facility] Comment on above: Performed By: #### L 501.4100, L501.9985, L501.4405, L500.2500, L502.0250, L500.4100 ####[facility] [address] [place], [address] Chloride [Moles/Vol] 99 mmol/L Normal 98-108 [facility] Comment on above: Performed By: #### L 501.4100, L501.9985, L501.4405, L500.2500, L502.0250, L500.4100 ####[facility] [address] [place], [address] CO2 [Moles/Vol] 24.5 mmol/L Normal 21.0-32.0 [facility] Comment on above: Performed By: #### L 501.4100, L501.9985, L501.4405, L500.2500, L502.0250, L500.4100 ####[facility] [address] [place], [address] Creatinine [Mass/Vol] 0.61 mg/dL Low 0.70-1.20 [facility] Comment on above: Performed By: #### L 501.4100, L501.9985, L501.4405, L500.2500, L502.0250, L500.4100 ####[facility] [address] [place], [address] GAP 15 Normal 5-15 [facility] Comment on above: Performed By: #### L 501.4100, L501.9985, L501.4405, L500.2500, L502.0250, L500.4100 ####[facility] [address] [place], [address] GFR/1.73 sq M.predicted among non-blacks MDRD (S/P/Bld) [Vol rate/Area] 111 mL/min/{1.73_m2} Normal >60 [facility] Comment on above: Result Comment: mL/m in/1.73m2 CKD-EPI Creatinine Equation (2020) Performed By: #### L 501.4100, L501.9985, L501.4405, L500.2500, L502.0250, L500.4100 ####[facility] [address] [place], [address] Glucose [Mass/Vol] 157 mg/dL High 70-99 [facility] Comment on above: Performed By: #### L 501.4100, L501.9985, L501.4405, L500.2500, L502.0250, L500.4100 ####[facility] [address] [place], [address] Potassium [Moles/Vol] 4.0 mmol/L Normal 3.3-5.1 [facility] Comment on above: Performed By: #### L 501.4100, L501.9985, L501.4405, L500.2500, L502.0250, L500.4100 ####[facility] [address] [place], [address] Sodium [Moles/Vol] 138 mmol/L Normal 133-145 [facility] Comment on above: Performed By: #### L 501.4100, L501.9985, L501.4405, L500.2500, L502.0250, L500.4100 ####[facility] [address] [place], [address] Urea nitrogen [Mass/Vol] 14 mg/dL Normal 4-19 [facility] Comment on above: Performed By: #### L 501.4100, L501.9985, L501.4405, L500.2500, L502.0250, L500.4100 ####[facility] [address] [place], [address] Hemoglobin A1con 05-13-2025 HbA1c (Bld) [Mass fraction] 6.7 % High <=5.6 [facility] Comment on above: Result Comment: Norm al < 5.7 % Prediabetic 5.7 - 6.4 % Diabetic >or= 6.5 % Please note range changes. Performed By: #### L 501.4100, L501.9985, L501.4405, L500.2500, L502.0250, L500.4100 ####[facility] [address] [place], [address] Lipid Profileon 05-13-2025 CHOL:HDL 4.19 Normal [facility] Comment on above: Performed By: #### L 501.4100, L501.9985, L501.4405, L500.2500, L502.0250, L500.4100 ####[facility] [address] [place], [address] Cholesterol [Mass/Vol] 179 mg/dL Normal <=200 [facility] Comment on above: Result Comment: Chol esterol level, Desirable <200 mg/dL Borderline high cholesterol 200-239 mg/dL High cholesterol >=240 mg/dL Recommendations of the NCEP Adult Treatment Panel for the following risk-cutoff thresholds for the [place] population. Performed By: #### L 501.4100, L501.9985, L501.4405, L500.2500, L502.0250, L500.4100 ####[facility] [address] [place], [address] Cholesterol in HDL [Mass/Vol] 43 mg/dL Normal [facility] Comment on above: Result Comment: Ena onal Cholesterol Education Program (NCEP) guidelines: <40 mg/dL: Low HDL-cholesterol (major risk factor for CHD) >= 60 mg/dL: High HDL-cholesterol (negative risk factor for CHD) HDL-cholesterol is affected by a number of factors, e.g. smoking, exercise, hormones, sex and age. Performed By: #### L 501.4100, L501.9985, L501.4405, L500.2500, L502.0250, L500.4100 ####[facility] [address] [place], [address] Cholesterol in LDL [Mass/Vol] 80 mg/dL Normal [facility] Comment on above: Result Comment: Bord ryffde=390-536 mg/dL Higher Cwje=968 mg/dL or greater Friedwald Equation for LDL-C Performed By: #### L 501.4100, L501.9985, L501.4405, L500.2500, L502.0250, L500.4100 ####[facility] [address] [place], [address] Cholesterol in VLDL [Mass/Vol] 57 mg/dL High 5-40 [facility] Comment on above: Performed By: #### L 501.4100, L501.9985, L501.4405, L500.2500, L502.0250, L500.4100 ####[facility] [address] [place], [address] Triglyceride [Mass/Vol] 283 mg/dL High [facility] Comment on above: Result Comment: The drugs N-Acetylcysteine and Metamizole may falsely depress this assay. Normal range: <150 mg/dL Borderline High: 150-199 mg/dL High: 200-499 mg/dL Very High: >500 mg/dL Performed By: #### L 501.4100, L501.9985, L501.4405, L500.2500, L502.0250, L500.4100 ####[facility] [address] [place], [address] Microalb:Creat Ratio,Random URon 05-13-2025 Creatinine [Mass/Vol] 79.00 mg/dL Normal 28.00-217.00 [facility] Comment on above: Performed By: #### L 501.4100, L501.9985, L501.4405, L500.2500, L502.0250, L500.4100 ####[facility] [address] [place], [place], [address] MALB:CREAT UNABLE TO CALCULATE Normal <30 mg/g CRE [facility] Comment on above: Performed By: #### L 501.4100, L501.9985, L501.4405, L500.2500, L502.0250, L500.4100 ####[facility] [address] [place], [place], [address] MICROALBUMIN,UR < 12.0 Normal <20 mg/L [facility] Comment on above: Performed By: #### L 501.4100, L501.9985, L501.4405, L500.2500, L502.0250, L500.4100 ####[facility] [address] [place], [address] MR/BMS.BPon 04-17-2025 MR/BMS.BP [address], [address] [place] [address] OFFICE VISIT Date of Service: 04/17/25 MR#: [id number] Acct: [id number] Name: BASIMJOANNE Julio Rep #: [id number] : 1975 Provider: Dr. Maciel Shabazz se, DO Age/Sex: 49/F [place] [facility] Status: Signed Intake Vital Signs 02/13/25 10:35 [...] 04/17/25 04/17/25 History subcutaneous pen injector (Mounjaro) [facility] Medical History Hypertriglyceridemia Generalized anxiety disorder [...] apnea Histor (more content not included)... Normal [facility] PAP IG HPV APTIMA 16/18,45on 04-17-2025 ADEQ Comment Normal . [facility] Comment on above: Order Comment: Speci men Comment: [id number] Specimen Comment: No. of containers..01 ThinPrep Vial Result Comment: Sati sfactory for evaluation. No endocervical component is identified. Performed By: #### L 7400.0280 #### [facility] [address] [place], [place], [address] COMM . Normal . [facility] Comment on above: Order Comment: Diony lacy Comment: [id number] Specimen Comment: No. of containers..01 ThinPrep Vial Performed By: #### L 7400.0280 #### [facility] [address] [place], [place], [address] COMMENT Comment Normal . [facility] Comment on above: Order Comment: Speci men Comment: [id number] Specimen Comment: No. of containers..01 ThinPrep Vial Result Comment: This liquid based ThinPrep(R) pap test was screened with the use of an image guided system. Performed By: #### L 7400.0280 #### [facility] [address] [place], [place], [address] DIAG Comment Normal . [facility] Comment on above: Order Comment: Speci men Comment: [id number] Specimen Comment: No. of containers..01 ThinPrep Vial Result Comment: NEGA TIVE FOR INTRAEPITHELIAL LESION OR MALIGNANCY. Performed By: #### L 7400.0280 #### [facility] [address] [place], [address] HPV APTIMA, HR Negative Normal Negative [facility] Comment on above: Order Comment: Speci men Comment: [id number] Specimen Comment: No. of containers..01 ThinPrep Vial Result Comment: This nucleic acid amplification test detects fourteen high- risk HPV types (16,18,31,33,35,39,45,51,52,56,58,59,66,68) without differentiation. Performed By: #### L 7400.0280 #### [facility] [address] [place], [address] HPV Luba Rfx Comment Normal . [facility] Comment on above: Order Comment: Speci men Comment: [id number] Specimen Comment: No. of containers..01 ThinPrep Vial Result Comment: Crit eria not met, HPV Genotype not performed. Performed at: - [facility] [id number] Make Up Editor: Vanessa Morris MD, Phone: [phone] Performed at: = - [facility] [id number] Make Up Editor: Vanessa Morris MD, Phone: [phone] Performed By: #### L 7400.0280 #### [facility] [address] [place], [address] PAPSMR Comment Normal . [facility] Comment on above: Order Comment: Speci men Comment: [id number] Specimen Comment: No. of containers..01 ThinPrep Vial Result Comment: The Pap smear is a screening test designed to aid in the detection of premalignant and malignant conditions of the uterine cervix. It is not a diagnostic procedure and should not be used as the sole means of detecting cervical cancer. Both false-positive and false-negative reports do occur. Performed By: #### L 7400.0280 #### [facility] [address] [place], [place], [address] PERFORM Comment Normal . [facility] Comment on above: Order Comment: Speci men Comment: [id number] Specimen Comment: No. of containers..01 ThinPrep Vial Result Comment: Paz Rooney, Palliative Care Physician (ASCP) Performed By: #### L 7400.0280 #### [facility] [address] 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 Normal [facility] AST(SGOT)on 02-27-2025 AST [Catalytic activity/Vol] 22 U/L Normal <=31 [facility] Comment on above: Performed By: #### L 501.4100, L501.9985, L500.4100, L501.9520, L501.4405, L500.2500 #### [facility] [address] [place], [address] Alanine Aminotransferas (SGP T)on 02-27-2025 ALT [Catalytic activity/Vol] 24 U/L Normal <=34 [facility] Comment on above: Performed By: #### L 501.4100, L501.9985, L500.4100, L501.9520, L501.4405, L500.2500 ####[facility] [address] [place], [address] Basic Metabolic Profile (BMP )on 02-27-2025 BUN/CRE 18.1 RATIO Normal 10-20 [facility] Comment on above: Performed By: #### L 501.4100, L501.9985, L500.4100, L501.9520, L501.4405, L500.2500 #### [facility] [address] [place], [address] Calcium [Mass/Vol] 9.7 mg/dL Normal 7.6-11.0 [facility] Comment on above: Performed By: #### L 501.4100, L501.9985, L500.4100, L501.9520, L501.4405, L500.2500 #### [facility] [address] [place], [address] Chloride [Moles/Vol] 94 mmol/L Low 98-108 [facility] Comment on above: Performed By: #### L 501.4100, L501.9985, L500.4100, L501.9520, L501.4405, L500.2500 #### [facility] [address] [place], [address] CO2 [Moles/Vol] 24.7 mmol/L Normal 21.0-32.0 [facility] Comment on above: Performed By: #### L 501.4100, L501.9985, L500.4100, L501.9520, L501.4405, L500.2500 #### [facility] [address] [place], [address] Creatinine [Mass/Vol] 0.65 mg/dL Low 0.70-1.20 [facility] Comment on above: Performed By: #### L 501.4100, L501.9985, L500.4100, L501.9520, L501.4405, L500.2500 #### [facility] [address] [place], [address] GAP 16 High 5-15 [facility] Comment on above: Performed By: #### L 501.4100, L501.9985, L500.4100, L501.9520, L501.4405, L500.2500 #### [facility] [address] [place], [address] GFR/1.73 sq M.predicted among non-blacks MDRD (S/P/Bld) [Vol rate/Area] 109 mL/min/{1.73_m2} Normal >60 [facility] Comment on above: Result Comment: mL/m in/1.73m2 CKD-EPI Creatinine Equation (2020) Performed By: #### L 501.4100, L501.9985, L500.4100, L501.9520, L501.4405, L500.2500 #### [facility] [address] [place], [address] Glucose [Mass/Vol] 236 mg/dL High 70-99 [facility] Comment on above: Performed By: #### L 501.4100, L501.9985, L500.4100, L501.9520, L501.4405, L500.2500 #### [facility] [address] [place], [address] Potassium [Moles/Vol] 4.1 mmol/L Normal 3.3-5.1 [facility] Comment on above: Performed By: #### L 501.4100, L501.9985, L500.4100, L501.9520, L501.4405, L500.2500 #### [facility] [address] [place], [address] Sodium [Moles/Vol] 134 mmol/L Normal 133-145 [facility] Comment on above: Performed By: #### L 501.4100, L501.9985, L500.4100, L501.9520, L501.4405, L500.2500 #### [facility] [address] [place], [address] Urea nitrogen [Mass/Vol] 12 mg/dL Normal 4-19 [facility] Comment on above: Performed By: #### L 501.4100, L501.9985, L500.4100, L501.9520, L501.4405, L500.2500 #### [facility] [address] [place], [address] Hemoglobin A1con 02-27-2025 HbA1c (Bld) [Mass fraction] 7.5 % High <=5.6 [facility] Comment on above: Result Comment: Norm al < 5.7 % Prediabetic 5.7 - 6.4 % Diabetic >or= 6.5 % Please note range changes. Performed By: #### L 501.4100, L501.9985, L500.4100, L501.9520, L501.4405, L500.2500 #### [facility] [address] [place], [address] Lipid Profileon 02-27-2025 CHOL:HDL 6.57 Normal [facility] Comment on above: Performed By: #### L 501.4100, L501.9985, L500.4100, L501.9520, L501.4405, L500.2500 #### [facility] [address] [place], [address] Cholesterol [Mass/Vol] 257 mg/dL High <=200 [facility] Comment on above: Result Comment: Chol esterol level, Desirable <200 mg/dL Borderline high cholesterol 200-239 mg/dL High cholesterol >=240 mg/dL Recommendations of the NCEP Adult Treatment Panel for the following risk-cutoff thresholds for the [place] population. Performed By: #### L 501.4100, L501.9985, L500.4100, L501.9520, L501.4405, L500.2500 #### [facility] [address] [place], [address] Cholesterol in HDL [Mass/Vol] 39 mg/dL Low [facility] Comment on above: Result Comment: Ena onal Cholesterol Education Program (NCEP) guidelines: <40 mg/dL: Low HDL-cholesterol (major risk factor for CHD) >= 60 mg/dL: High HDL-cholesterol (negative risk factor for CHD) HDL-cholesterol is affected by a number of factors, e.g. smoking, exercise, hormones, sex and age. Performed By: #### L 501.4100, L501.9985, L500.4100, L501.9520, L501.4405, L500.2500 #### [facility] [address] [place], [address] Cholesterol in LDL [Mass/Vol] 109 mg/dL Normal [facility] Comment on above: Result Comment: Bord jvtwef=848-671 mg/dL Higher Jpvk=877 mg/dL or greater Performed By: #### L 501.4100, L501.9985, L500.4100, L501.9520, L501.4405, L500.2500 #### [facility] [address] [place], [address] Cholesterol in VLDL [Mass/Vol] 109 mg/dL High 5-40 [facility] Comment on above: Performed By: #### L 501.4100, L501.9985, L500.4100, L501.9520, L501.4405, L500.2500 #### [facility] [address] [place], [address] Triglyceride [Mass/Vol] 545 mg/dL High [facility] Comment on above: Result Comment: The drugs N-Acetylcysteine and Metamizole may falsely depress this assay. Normal range: <150 mg/dL Borderline High: 150-199 mg/dL High: 200-499 mg/dL Very High: >500 mg/dL Performed By: #### L 501.4100, L501.9985, L500.4100, L501.9520, L501.4405, L500.2500 #### [facility] [address] [place], [address] Thyroid Stim Hormone (TSH)on 02-27-2025 TSH 1.690 uIU/mL Normal 0.300-4.200 [facility] Comment on above: Performed By: #### L 501.4100, L501.9985, L500.4100, L501.9520, L501.4405, L500.2500 #### [facility] [address] [place], [address] /BMS.BPon 02-13-2025 MR/BMS.BP [address], [address] [place] [address] OFFICE VISIT Date of Service: 02/13/25 MR#: [id number] Acct: [id number] Name: JOANNE STALLWORTH Rep #: [id number] : 1975 Provider: Dr. Maciel Shabazz se, DO Age/Sex: 49/F [place] [facility] [place] Status: Signed Intake Vital Signs 12/05/24 09:52 [...] pain S (more content not included)... Normal [facility] CBC W/Diff, Automatedon 01-12 Absolute Lymph 3.17 X10 3/uL Normal 0.83-4.51 [facility] Comment on above: Order Comment: DR.DI COX ORDERED LH,FSH,TSH,VITDDR.JERI ORDERED CBCD,CMP AND LIPID Performed By: #### L 500.4050, L100.0100, L506.1001, L3100.5170, L3100.5125, L501.9520, L500.4100 ####[facility] [address] [place], [place], [id number] Absolute Neut 7.1 X10 3/uL Normal 2.0-7.7 [facility] Comment on above: Order Comment: DR.DI COX ORDERED LH,FSH,TSH,VITDDR.ДМИТРИЙTorsten ORDERED CBCD,CMP AND LIPID Performed By: #### L 500.4050, L100.0100, L506.1001, L3100.5170, L3100.5125, L501.9520, L500.4100 ####[facility] [address] [place], [place], [id number] Basophils/100 WBC (Bld) 0.5 % Normal 0-1 [facility] Comment on above: Order Comment: DR.DI COX ORDERED LH,FSH,TSH,VITDDR.OLEGHE ORDERED CBCD,CMP AND LIPID Performed By: #### L 500.4050, L100.0100, L506.1001, L3100.5170, L3100.5125, L501.9520, L500.4100 ####[facility] [address] [place], [address] Eosinophils/100 WBC (Bld) 0.7 % Normal 0-5 [facility] Comment on above: Order Comment: DR.DI COX ORDERED LH,FSH,TSH,VITDDR.OLEGHE ORDERED CBCD,CMP AND LIPID Performed By: #### L 500.4050, L100.0100, L506.1001, L3100.5170, L3100.5125, L501.9520, L500.4100 ####[facility] [address] [place], [address] Erythrocyte distribution width (RBC) [Ratio] 12.2 % Normal 11.6-14.6 [facility] Comment on above: Order Comment: DR.DI COX ORDERED LH,FSH,TSH,VITDDR.OLEGHE ORDERED CBCD,CMP AND LIPID Performed By: #### L 500.4050, L100.0100, L506.1001, L3100.5170, L3100.5125, L501.9520, L500.4100 ####[facility] [address] [place], [address] Hematocrit (Bld) [Volume fraction] 45.8 % Normal 37-47 [facility] Comment on above: Order Comment: DR.DI COX ORDERED LH,FSH,TSH,VITDDR.OLEGHE ORDERED CBCD,CMP AND LIPID Performed By: #### L 500.4050, L100.0100, L506.1001, L3100.5170, L3100.5125, L501.9520, L500.4100 ####[facility] [address] [place], [address] Hemoglobin (Bld) [Mass/Vol] 15.5 g/dL High 12.0-15.0 [facility] Comment on above: Order Comment: DR.DI COX ORDERED LH,FSH,TSH,VITDDR.OLEGHE ORDERED CBCD,CMP AND LIPID Performed By: #### L 500.4050, L100.0100, L506.1001, L3100.5170, L3100.5125, L501.9520, L500.4100 ####[facility] [address] [place], [address] IG% 0.900 Normal 0.0-0.9 [facility] Comment on above: Order Comment: DR.DI COX ORDERED LH,FSH,TSH,VITDDR.OLEGHE ORDERED CBCD,CMP AND LIPID Result Comment: IG% - Immature Granulocytes (promyelocytes, myelocytes and metamyelocytes) > 1% indicates that a LEFT SHIFT is Present. Performed By: #### L 500.4050, L100.0100, L506.1001, L3100.5170, L3100.5125, L501.9520, L500.4100 ####[facility] [address] [place], [address] Lymphocytes/100 WBC (Bld) 28.3 % Normal 19-41 [facility] Comment on above: Order Comment: DR.DI COX ORDERED LH,FSH,TSH,VITDDR.OLEGHE ORDERED CBCD,CMP AND LIPID Performed By: #### L 500.4050, L100.0100, L506.1001, L3100.5170, L3100.5125, L501.9520, L500.4100 ####[facility] [address] [place], [address] MCH (RBC) [Entitic mass] 31.6 pg Normal 27.0-32.0 [facility] Comment on above: Order Comment: DR.DI COX ORDERED LH,FSH,TSH,VITDDR.OLEGHE ORDERED CBCD,CMP AND LIPID Performed By: #### L 500.4050, L100.0100, L506.1001, L3100.5170, L3100.5125, L501.9520, L500.4100 ####[facility] [address] [place], [address] MCHC (RBC) [Mass/Vol] 33.8 g/dL Normal 32-36 [facility] Comment on above: Order Comment: DR.DI COX ORDERED LH,FSH,TSH,VITDDR.OLEGHE ORDERED CBCD,CMP AND LIPID Performed By: #### L 500.4050, L100.0100, L506.1001, L3100.5170, L3100.5125, L501.9520, L500.4100 ####[facility] [address] [place], [address] MCV (RBC) [Entitic vol] 93.3 fL Normal 81-99 [facility] Comment on above: Order Comment: DR.DI COX ORDERED LH,FSH,TSH,VITDDR.OLEGHE ORDERED CBCD,CMP AND LIPID Performed By: #### L 500.4050, L100.0100, L506.1001, L3100.5170, L3100.5125, L501.9520, L500.4100 ####[facility] [address] [place], [address] Monocytes/100 WBC (Bld) 6.4 % Normal 0-10 [facility] Comment on above: Order Comment: DR.DI COX ORDERED LH,FSH,TSH,VITDDR.OLEGHE ORDERED CBCD,CMP AND LIPID Performed By: #### L 500.4050, L100.0100, L506.1001, L3100.5170, L3100.5125, L501.9520, L500.4100 ####[facility] [address] [place], [address] Neutrophils/100 WBC (Bld) 63.2 % Normal 47-70 [facility] Comment on above: Order Comment: DR.DI COX ORDERED LH,FSH,TSH,VITDDR.OLEGHE ORDERED CBCD,CMP AND LIPID Performed By: #### L 500.4050, L100.0100, L506.1001, L3100.5170, L3100.5125, L501.9520, L500.4100 ####[facility] [address] [place], [address] Nucleated RBC (Bld) [#/Vol] 0 10*3/uL Normal 0-5 [facility] Comment on above: Order Comment: DR.DI COX ORDERED LH,FSH,TSH,VITDDR.OLEGHE ORDERED CBCD,CMP AND LIPID Performed By: #### L 500.4050, L100.0100, L506.1001, L3100.5170, L3100.5125, L501.9520, L500.4100 ####[facility] [address] [place], [address] Platelet mean volume (Bld) [Entitic vol] 9.3 fL Normal 6.2-12.0 [facility] Comment on above: Order Comment: DR.DI COX ORDERED LH,FSH,TSH,VITDDR.OLEGHE ORDERED CBCD,CMP AND LIPID Performed By: #### L 500.4050, L100.0100, L506.1001, L3100.5170, L3100.5125, L501.9520, L500.4100 ####[facility] [address] [place], [address] Platelets (Bld) [#/Vol] 385 10*3/uL Normal 150-450 [facility] Comment on above: Order Comment: DR.DI COX ORDERED LH,FSH,TSH,VITDDR.OLEGHE ORDERED CBCD,CMP AND LIPID Performed By: #### L 500.4050, L100.0100, L506.1001, L3100.5170, L3100.5125, L501.9520, L500.4100 ####[facility] [address] [place], [address] RBC (Bld) [#/Vol] 4.91 10*6/uL Normal 4.2-5.4 [facility] Comment on above: Order Comment: DR.DI COX ORDERED LH,FSH,TSH,VITDDR.OLEGHE ORDERED CBCD,CMP AND LIPID Performed By: #### L 500.4050, L100.0100, L506.1001, L3100.5170, L3100.5125, L501.9520, L500.4100 ####[facility] [address] [place], [address] RDW SD 42.1 fl Normal 35.1-43.9 [facility] Comment on above: Order Comment: DR.DI COX ORDERED LH,FSH,TSH,VITDDR.OLEGHE ORDERED CBCD,CMP AND LIPID Performed By: #### L 500.4050, L100.0100, L506.1001, L3100.5170, L3100.5125, L501.9520, L500.4100 ####[facility] [address] [place], [address] WBC (Bld) [#/Vol] 11.2 10*3/uL High 4.4-11.0 [facility] Comment on above: Order Comment: DR.DI COX ORDERED LH,FSH,TSH,VITDDR.OLEGHE ORDERED CBCD,CMP AND LIPID Performed By: #### L 500.4050, L100.0100, L506.1001, L3100.5170, L3100.5125, L501.9520, L500.4100 ####[facility] [address] [place], [address] Comprehensive Metabolic Prof ilon 01-23-2025 Albumin [Mass/Vol] 4.3 g/dL Normal 3.5-5.0 [facility] Comment on above: Order Comment: DR.DI COX ORDERED LH,FSH,TSH,VITDDR.OLEGHE ORDERED CBCD,CMP AND LIPID Performed By: #### L 500.4050, L100.0100, L506.1001, L3100.5170, L3100.5125, L501.9520, L500.4100 ####[facility] [address] [place], [address] Albumin/Globulin [Mass ratio] 1.3 {ratio} Normal 0.9-2.4 [facility] Comment on above: Order Comment: DR.DI COX ORDERED LH,FSH,TSH,VITDDR.OLEGHE ORDERED CBCD,CMP AND LIPID Performed By: #### L 500.4050, L100.0100, L506.1001, L3100.5170, L3100.5125, L501.9520, L500.4100 ####[facility] [address] [place], [place], [id number] ALK PHOS 74 U/L Normal 35-104 [facility] Comment on above: Order Comment: DR.DI COX ORDERED LH,FSH,TSH,VITDDR.OLEGHE ORDERED CBCD,CMP AND LIPID Performed By: #### L 500.4050, L100.0100, L506.1001, L3100.5170, L3100.5125, L501.9520, L500.4100 ####[facility] [address] [place], [place], [phone] ALT [Catalytic activity/Vol] 16 U/L Normal <=34 [facility] Comment on above: Order Comment: DR.DI COX ORDERED LH,FSH,TSH,VITDDR.OLEGHE ORDERED CBCD,CMP AND LIPID Performed By: #### L 500.4050, L100.0100, L506.1001, L3100.5170, L3100.5125, L501.9520, L500.4100 ####[facility] [address] [place], [place], [phone] AST [Catalytic activity/Vol] 22 U/L Normal <=31 [facility] Comment on above: Order Comment: DR.DI COX ORDERED LH,FSH,TSH,VITDDR.OLEGHE ORDERED CBCD,CMP AND LIPID Result Comment: Hemo lysis present, Results??could be affected. ?? Performed By: #### L 500.4050, L100.0100, L506.1001, L3100.5170, L3100.5125, L501.9520, L500.4100 ####[facility] [address] [place], [address] Bilirubin [Mass/Vol] 0.23 mg/dL Normal 0.00-1.30 [facility] Comment on above: Order Comment: DR.DI COX ORDERED LH,FSH,TSH,VITDDR.OLEGHE ORDERED CBCD,CMP AND LIPID Performed By: #### L 500.4050, L100.0100, L506.1001, L3100.5170, L3100.5125, L501.9520, L500.4100 ####[facility] [address] [place], [address] BUN/CRE 33.2 RATIO High 10-20 [facility] Comment on above: Order Comment: DR.DI COX ORDERED LH,FSH,TSH,VITDDR.OLEGHE ORDERED CBCD,CMP AND LIPID Performed By: #### L 500.4050, L100.0100, L506.1001, L3100.5170, L3100.5125, L501.9520, L500.4100 ####[facility] [address] [place], [address] Calcium [Mass/Vol] 10.2 mg/dL Normal 7.6-11.0 [facility] Comment on above: Order Comment: DR.DI COX ORDERED LH,FSH,TSH,VITDDR.OLEGHE ORDERED CBCD,CMP AND LIPID Performed By: #### L 500.4050, L100.0100, L506.1001, L3100.5170, L3100.5125, L501.9520, L500.4100 ####[facility] [address] [place], [address] Chloride [Moles/Vol] 98 mmol/L Normal 98-108 [facility] Comment on above: Order Comment: DR.DI COX ORDERED LH,FSH,TSH,VITDDR.OLEGHE ORDERED CBCD,CMP AND LIPID Performed By: #### L 500.4050, L100.0100, L506.1001, L3100.5170, L3100.5125, L501.9520, L500.4100 ####[facility] [address] [place], [address] CO2 [Moles/Vol] 24.3 mmol/L Normal 21.0-32.0 [facility] Comment on above: Order Comment: DR.DI COX ORDERED LH,FSH,TSH,VITDDR.OLEGHE ORDERED CBCD,CMP AND LIPID Performed By: #### L 500.4050, L100.0100, L506.1001, L3100.5170, L3100.5125, L501.9520, L500.4100 ####[facility] [address] [place], [address] Creatinine [Mass/Vol] 0.69 mg/dL Low 0.70-1.20 [facility] Comment on above: Order Comment: DR.DI COX ORDERED LH,FSH,TSH,VITDDR.OLEGHE ORDERED CBCD,CMP AND LIPID Performed By: #### L 500.4050, L100.0100, L506.1001, L3100.5170, L3100.5125, L501.9520, L500.4100 ####[facility] [address] [place], [address] GAP 15 Normal 5-15 [facility] Comment on above: Order Comment: DR.DI COX ORDERED LH,FSH,TSH,VITDDR.OLEGHE ORDERED CBCD,CMP AND LIPID Performed By: #### L 500.4050, L100.0100, L506.1001, L3100.5170, L3100.5125, L501.9520, L500.4100 ####[facility] [address] [place], [address] GFR/1.73 sq M.predicted among non-blacks MDRD (S/P/Bld) [Vol rate/Area] 108 mL/min/{1.73_m2} Normal >60 [facility] Comment on above: Order Comment: DR.DI COX ORDERED LH,FSH,TSH,VITDDR.OLEGHE ORDERED CBCD,CMP AND LIPID Result Comment: mL/m in/1.73m2 CKD-EPI Creatinine Equation (2020) Performed By: #### L 500.4050, L100.0100, L506.1001, L3100.5170, L3100.5125, L501.9520, L500.4100 ####[facility] [address] [place], [address] Globulin (S) [Mass/Vol] 3.2 g/dL Normal 2.2-4.2 [facility] Comment on above: Order Comment: DR.DI COX ORDERED LH,FSH,TSH,VITDDR.OLEGHE ORDERED CBCD,CMP AND LIPID Performed By: #### L 500.4050, L100.0100, L506.1001, L3100.5170, L3100.5125, L501.9520, L500.4100 ####[facility] [address] [place], [address] Glucose [Mass/Vol] 145 mg/dL High 70-99 [facility] Comment on above: Order Comment: DR.DI COX ORDERED LH,FSH,TSH,VITDDR.OLEGHE ORDERED CBCD,CMP AND LIPID Performed By: #### L 500.4050, L100.0100, L506.1001, L3100.5170, L3100.5125, L501.9520, L500.4100 ####[facility] [address] [place], [address] Potassium [Moles/Vol] 4.4 mmol/L Normal 3.3-5.1 [facility] Comment on above: Order Comment: DR.DI COX ORDERED LH,FSH,TSH,VITDDR.OLEGHE ORDERED CBCD,CMP AND LIPID Result Comment: Hemo lysis present, Results??could be affected. ?? Performed By: #### L 500.4050, L100.0100, L506.1001, L3100.5170, L3100.5125, L501.9520, L500.4100 ####[facility] [address] [place], [address] Sodium [Moles/Vol] 137 mmol/L Normal 133-145 [facility] Comment on above: Order Comment: DR.DI COX ORDERED LH,FSH,TSH,VITDDR.OLEGHE ORDERED CBCD,CMP AND LIPID Performed By: #### L 500.4050, L100.0100, L506.1001, L3100.5170, L3100.5125, L501.9520, L500.4100 ####[facility] [address] [place], [address] T PROT 7.5 g/dL Normal 5.9-8.4 [facility] Comment on above: Order Comment: DR.DI COX ORDERED LH,FSH,TSH,VITDDR.OLEGHE ORDERED CBCD,CMP AND LIPID Performed By: #### L 500.4050, L100.0100, L506.1001, L3100.5170, L3100.5125, L501.9520, L500.4100 ####[facility] [id number] [place], [address] Urea nitrogen [Mass/Vol] 23 mg/dL High 4-19 [facility] Comment on above: Order Comment: DR.DI COX ORDERED LH,FSH,TSH,VITDDR.OLEGHE ORDERED CBCD,CMP AND LIPID Performed By: #### L 500.4050, L100.0100, L506.1001, L3100.5170, L3100.5125, L501.9520, L500.4100 ####[facility] [id number] [place], [place], [id number] Follicle Stimulating Hormone on 01-23-2025 FSH 15.0 mIU/mL Normal [facility] Comment on above: Order Comment: DR.DI [...] 500.4050, L100.0100, L506.1001, L3100.5170, L3100.5125, L501.9520, L500.4100 ####[facility] [address] [place], [place], [phone] Lipid Profileon 01-23-2025 CHOL:HDL 5.06 Normal [facility] Comment on above: Order Comment: DR.DI COX ORDERED LH,FSH,TSH,VITDDR.OLERADHA ORDERED CBCD,CMP AND LIPID Performed By: #### L 500.4050, L100.0100, L506.1001, L3100.5170, L3100.5125, L501.9520, L500.4100 ####[facility] [address] [place], [place], [phone] Cholesterol [Mass/Vol] 208 mg/dL High <=200 [facility] Comment on above: Order Comment: DR.DI COX ORDERED LH,FSH,TSH,VITDDR.JERI ORDERED CBCD,CMP AND LIPID Result Comment: Chol esterol level, Desirable <200 mg/dL Borderline high cholesterol 200-239 mg/dL High cholesterol >=240 mg/dL Recommendations of the NCEP Adult Treatment Panel for the following risk-cutoff thresholds for the [place] population. Performed By: #### L 500.4050, L100.0100, L506.1001, L3100.5170, L3100.5125, L501.9520, L500.4100 ####[facility] [address] [place], [phone] Cholesterol in HDL [Mass/Vol] 41 mg/dL Normal [facility] Comment on above: Order Comment: DR.DI [...] 500.4050, L100.0100, L506.1001, L3100.5170, L3100.5125, L501.9520, L500.4100 ####[facility] [address] [place], [address] Cholesterol in LDL [Mass/Vol] 81 mg/dL Normal [facility] Comment on above: Order Comment: DR.DI COX ORDERED LH,FSH,TSH,VITDDR.OLEGHE ORDERED CBCD,CMP AND LIPID Result Comment: Bord xshuqu=267-338 mg/dL Higher Ljbr=798 mg/dL or greater Performed By: #### L 500.4050, L100.0100, L506.1001, L3100.5170, L3100.5125, L501.9520, L500.4100 ####[facility] [address] [place], [place], [phone] Cholesterol in VLDL [Mass/Vol] 86 mg/dL High 5-40 [facility] Comment on above: Order Comment: DR.DI COX ORDERED LH,FSH,TSH,VITDDR.JERI ORDERED CBCD,CMP AND LIPID Performed By: #### L 500.4050, L100.0100, L506.1001, L3100.5170, L3100.5125, L501.9520, L500.4100 ####[facility] [address] [place], [place], [phone] Triglyceride [Mass/Vol] 432 mg/dL High [facility] Comment on above: Order Comment: DR.DI COX ORDERED LH,FSH,TSH,VITDDRJEYSON ORDERED CBCD,CMP AND LIPID Result Comment: The drugs N-Acetylcysteine and Metamizole may falsely depress this assay. Normal range: <150 mg/dL Borderline High: 150-199 mg/dL High: 200-499 mg/dL Very High: >500 mg/dL Performed By: #### L 500.4050, L100.0100, L506.1001, L3100.5170, L3100.5125, L501.9520, L500.4100 ####[facility] [address] [place], [place], [phone] Luteinizing Hormoneon 2024 LH 9.8 mIU/mL Normal [facility] Comment on above: Order Comment: DR.DI COX ORDERED LH,FSH,TSH,VITDDRJEYSON ORDERED CBCD,CMP AND LIPID Result Comment: FEMA LE: Follicular: 1.9-12.5 mIU/mL Midcycle: 8.7-76.3 mIU/mL Luteal: 0.5-16.9 mIU/mL Post Menopause: 15.9-54.0 mIU/mL MALE: 20-70 Years: 1.5-9.3 mIU/mL >70 Years: 3.1-34.6 mIU/mL Performed By: #### L 500.4050, L100.0100, L506.1001, L3100.5170, L3100.5125, L501.9520, L500.4100 ####[facility] [address] [place], [place], [address] Thyroid Stim Hormone (TSH)on 01-23-2025 TSH 2.640 uIU/mL Normal 0.300-4.200 [facility] Comment on above: Order Comment: DR.DI COX ORDERED LH,FSH,TSH,VITDDR.JERI ORDERED CBCD,CMP AND LIPID Performed By: #### L 500.4050, L100.0100, L506.1001, L3100.5170, L3100.5125, L501.9520, L500.4100 ####[facility] [address] [place], [place], [id number] Vitamin D,25 Hydroxyon 01-23 Vitamin D 25-OH 28.6 ng/mL Low 30-100 [facility] Comment on above: Order Comment: DR.DI COX ORDERED LH,FSH,TSH,VITDDR.JERI ORDERED CBCD,CMP AND LIPID Result Comment: Cristina min D Status Deficiency: <20 ng/mL (50nmol/L) Insufficiency: 20-30 ng/mL (50-75 nmol/L) Sufficiency: 30-100 ng/mL (75-250 nmol/L) Toxicity: >100 ng/mL (>250 nmol/L) Performed By: #### L 500.4050, L100.0100, L506.1001, L3100.5170, L3100.5125, L501.9520, L500.4100 ####[facility] [address] [place], [place], [address] Internal Medicine Office Vis itonicholas 01-18-2025 Internal Medicine Office Visit [facility] [place], [place] [address] OFFICE VISIT Date of Service: 01/18/25 MR#: [id number] Acct: [id number] Name: JOANNE STALLWORTH Rep #: [id number] : 1975 Provider: Dr. Rogers draper MD Age/Sex: 49/F [place] [facility] Status: Signed Intake Vital Signs 09/12/24 09:57 [...] M FU Chief Complaint: Follow-up chronic conditions Communications Project Manager Required: No Is patient in pain?: No [...] 01/18/25 History Nurse's Note: Doing IOP at [facility] is feeling well, and not had any medication changes. Will have FSH,LH and some other labs drawn. through Dr. Moffett [facility] Medical History Generalized anxiety disorder Major [...] lump KAMAR (more content not included)... Normal [facility] Gastroenterology Visit Repor ton 12-05-2024 Gastroenterology Visit Report [facility]enterology [address] [place] [address] OFFICE VISIT Date of Service: 12/05/24 MR#: [id number] Acct: [id number] Name: BASIMZACHJOANNE Julio Rep #: [id number] : 1975 Provider: Marino Trotter, DO Age/Sex: 49/F [place] [facility] Status: Signed Intake Vital Signs 03/02/24 10:05 [...] pain Arthritis Hypertension Surgical History ... Normal [facility] MR/BMS.BPon 12-05-2024 MR/BMS.BP [address], [address] [place] [address] OFFICE VISIT Date of Service: 12/05/24 MR#: [id number] Acct: [id number] Name: JOANNE STALLWORTH Julio Rep #: [id number] : 1975 Provider: Dr. Maciel Shabazz se, DO Age/Sex: 49/F Location[place] [facility] Status: Signed Intake Vital Signs 09/12/24 09:57 [...] because of this. 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 Outside of work, things [...] none Ho (more content not included)... Normal [facility] AST(SGOT)on 12-03-2024 AST [Catalytic activity/Vol] 19 U/L Normal <=31 [facility] Comment on above: Performed By: #### L 500.2500, L501.4405, L501.4100, L501.9985 ####[facility] [address] [facility] [address] Alanine Aminotransferas (SGP T)on 12-03-2024 ALT [Catalytic activity/Vol] 14 U/L Normal <=34 [facility] Comment on above: Performed By: #### L 500.2500, L501.4405, L501.4100, L501.9985 ####[facility] [address] [place], [address] Basic Metabolic Profile (BMP )on 12-03-2024 BUN/CRE 33.0 RATIO High 10-20 [facility] Comment on above: Performed By: #### L 500.2500, L501.4405, L501.4100, L501.9985 ####[facility] [address] [place], [address] Calcium [Mass/Vol] 9.4 mg/dL Normal 7.6-11.0 [facility] Comment on above: Performed By: #### L 500.2500, L501.4405, L501.4100, L501.9985 ####[facility] [address] [place], [address] Chloride [Moles/Vol] 98 mmol/L Normal 98-108 [facility] Comment on above: Performed By: #### L 500.2500, L501.4405, L501.4100, L501.9985 ####[facility] [address] [place], [address] CO2 [Moles/Vol] 23.9 mmol/L Normal 21.0-32.0 [facility] Comment on above: Performed By: #### L 500.2500, L501.4405, L501.4100, L501.9985 ####[facility] [address] [place], [address] Creatinine [Mass/Vol] 0.66 mg/dL Low 0.70-1.20 [facility] Comment on above: Performed By: #### L 500.2500, L501.4405, L501.4100, L501.9985 ####[facility] [address] [place], [address] GAP 15 Normal 5-15 [facility] Comment on above: Performed By: #### L 500.2500, L501.4405, L501.4100, L501.9985 ####[facility] [address] [place], [address] GFR/1.73 sq M.predicted among non-blacks MDRD (S/P/Bld) [Vol rate/Area] 109 mL/min/{1.73_m2} Normal >60 [facility] Comment on above: Result Comment: mL/m in/1.73m2 CKD-EPI Creatinine Equation (2020) Performed By: #### L 500.2500, L501.4405, L501.4100, L501.9985 ####[facility] [address] [place], [address] Glucose [Mass/Vol] 170 mg/dL High 70-99 [facility] Comment on above: Performed By: #### L 500.2500, L501.4405, L501.4100, L501.9985 ####[facility] [address] [place], [address] Potassium [Moles/Vol] 4.8 mmol/L Normal 3.3-5.1 [facility] Comment on above: Result Comment: Hemo lysis present, Results??could be affected. ?? Performed By: #### L 500.2500, L501.4405, L501.4100, L501.9985 ####[facility] [address] [place], [address] Sodium [Moles/Vol] 136 mmol/L Normal 133-145 [facility] Comment on above: Performed By: #### L 500.2500, L501.4405, L501.4100, L501.9985 ####[facility] [address] [place], [address] Urea nitrogen [Mass/Vol] 22 mg/dL High 4-19 [facility] Comment on above: Performed By: #### L 500.2500, L501.4405, L501.4100, L501.9985 ####[facility] [address] [place], [address] Hemoglobin A1con 12-03-2024 HbA1c (Bld) [Mass fraction] 7.5 % Normal <=5.6 [facility] Comment on above: Performed By: #### L 500.2500, L501.4405, L501.4100, L501.9985 ####[facility] [address] [place], [address] Urgent Care Visit Reporton 0 11-25-2024 Urgent Care Visit Report [facility] [address], [address] [place] [address] OFFICE VISIT Date of Service: 11/25/24 MR#: [id number] Acct: [id number] Name: JOANNE STALLWORTH Rep #: [id number] : 1975 Provider: CHETAN Dixon Age/Sex: 49/F Location[place] [facility] Status: Signed Intake Vital Signs 09/12/24 09:57 [...] 3 days for some of they symptoms. [facility] Medical History Wears glasses Depression Anxiety Injury of head and neck Non-smoker BiPAP (biphasic positive airway pressure) dependence Shortness of breath on exertion History of stress test Health care maintenance Colon cancer screening Hypokalemia Insomnia Psoriasis MDD (major depressive disorder) Acute streptococcal pharyngitis Flu vaccine need Menstrual irregularity Fatty liver disease, nonalcoholic Osteoarthritis Morbid obesity ELVIS (obstruct (more content not included)... Normal [facility] Internal Medicine Office Vis iton 09-12-2024 Internal Medicine Office Visit [facility] [address] [place] [address] [place] [address] OFFICE VISIT Date of Service: 09/12/24 MR#: [id number] Acct: [id number] Name: JOANNE STALLWORTH Rep #: [id number] : 1975 Provider: Dr. Rogers draper MD Age/Sex: 49/F Location[place] [facility] Status: Signed Intake Vital Signs 05/25/24 16:16 [...] 3 M FU Chief Complaint: 3m f/u Communications Project Manager Required: No Accompanied by: Self Is patient [...] apnea H (more content not included)... Normal [facility] MR/BMS.BPon 09-12-2024 MR/BMS.[address], [place] [address] OFFICE VISIT Date of Service: 09/12/24 MR#: [id number] Acct: [id number] Name: JOANNE STALLWORTH Rep #: [id number] : 1975 Provider: Dr. Maciel Shabazz se, DO Age/Sex: 49/F Location[place] [facility] Status: Signed Intake Vital Signs 05/18/24 16:21 [...] Hypertension Surgic (more content not included)... Normal [facility] Bedside Glucoseon 09-09-2024 FINGERSTICK GLU 222 mg/dL High 74-106 [facility] Comment on above: Result Comment: MASON MAXWELL OF PATIENT CARE PER NURSING PROTOCOL Performed By: #### L 501.080 ####[facility] [address] [place], [address] Colonoscopy Reporton 024 Colonoscopy Report [facility] Medical Records Department [address] [place] [address] Colonoscopy Report MR#: [id number] Acct: [id number] Name: JOANNE STALLWORTH Rep #: [id number] : 1975 49 From: Marino Trotter DO PCP: Dr. Rogers Bellamy MD Status:REG [facility] Patient Name: Joanne Stallworth Procedure Date: 09/09/2024 [...] criteria for high risk CPT copyright 2021 [employer] [place] [employer]. All rights reserved. The codes documented in this report are preliminary and upon coppersmith helper review may be revised to meet current compliance requirements. Marino Trotter DO 09/09/2024 12:45:41 PM This report has been signed electronically. Number of Addenda: 0 Note Initiated On: 09/09/2024 11:01 AM 09/09/24 1246 Date Marino Roach Signature: Date (if indicated) CC: Dr. Rogers Bellamy MD; Marino Trotter DO Date Dictated: 09/09/24 1101 Date Transcribed: Plastics Scientist: RUBEN Signed [facility] MR/POSTOP.ANEon 09-09-2024 MR/POSTOP.[facility] Medical Records Department [address] [place] [address] Anesthesia Postop Eval I 09/09/24 1248 MR#: [id number] Acct: [id number] Name: JOANNE STALLWORTH Rep #: [id number] : 1975 49 From: Dago Grijalva PCP: Dr. Rogers Bellamy MD Status:REG [facility] Y Race: C Location: [place] [address] Anesthesia: Postop Eval I Current Vital Signs [...] Date Dago Solis Signature: Date CC: Signed [facility] MR/FGKAHKRG2tq 09-09-2024 MR/POST[address] Medical Records Department [address] [place] [address] Anesthesia Postop Eval II 09/09/24 1352 MR#: [id number] Acct: [id number] Name: JOANNE STALLWORTH Rep #: [id number] : 1975 49 From: Marcelo Price MD PCP: Dr. Rogers Bellamy MD Status:[facility] Y Race: C Location: [place] Anesthesia Postop [...] No Vomiting: No 09/09/24 1352 Date Marcelo Price MD Cosigner Signature: Date CC: Signed Normal [facility] ,Urineon 09-09-2024 Beta HCG ( test) Ql (U) Negative Normal [facility] Comment on above: Result Comment: Very dilute urine specimens, as indicated by a low specific gravity, may not contain territory sales representative levels of hCG. If is still suspected, a first morning urine specimen should be collected 48 hours later and tested. Performed By: #### L 400.7600 ####[facility] [address] [place], [place], [address] MR/PAT.BRADYon 09-08-2024 MR/PAT.BRADY [facility] Medical Records Department [address] [place] [address] PAT - Anesthesia 09/08/24 1129 MR#: [id number] Acct: [id number] Name: JOANNE STALLWORTH Rep #: [id number] : 1975 49 From: Froilan Lerma MD PCP: Dr. Rogers Bellamy MD Status:PRE 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 Hx Hospitalization No 09/08/24 11:07 Any Problems [...] take am of surgery PONV PONV - clay preparation supervisor: PONV - clay preparation supervisor Female Yes 09/08/24 11:07 HX of Motion [...] 07/20/24 09:33 Respiratory Assessment Respiratory Assessment - clay preparation supervisor: Respiratory Tract Infection Hx - clay preparation supervisor Hx Respiratory Tract Infection No 09/08/24 11:07 STOP Sleep Apnea STOP Sleep Apnea - clay preparation supervisor: STOP Sleep Apnea - clay preparation supervisor Hx Hypertension Yes: CONTROLLED ON MED 09/08/24 [...] Tobacco Use History Tobacco Use History - clay preparation supervisor: Tobacco Use History - clay preparation supervisor Tobacco Use Smoking Status Never smoker 09/08/24 11:07 Hx Tobacco Use No 09/08/24 11:07 Years Smoking Packs Smoked per Day Smoking Cessation Date was within the last 15 years Hx Smoking Cessation Date Hx Smoking Cessation Counseling Hematologic Medial History Hematologic Hx - clay preparation supervisor: Hematologic Medical Hx - garnett machine operator helper Hx of Blood Transfusion No 09/08/24 11:07 [...] confused, unrespo /Reproduction History /Reproductive History - clay preparation supervisor: /Reproductive Hx- clay preparation supervisor Hx Now No 09/08/24 11:07 Gestational Age [...] ???Medication ? (more content not included)... Normal [facility] ABD Limited w/ Elastographyo n 09-05-2024 ABD Limited w/ Elastography [facility] Imaging Services [address] [place] [address] ABD Limited w/ Elastography MR#: [id number] Acct: [id number] Name: JOANNE STALLWORTH Rep #: [id number] : 1975 F 49 From: Adán franklin MD PCP: Dr. Rogers Bellamy MD Status: [facility] Study: ABD Limited w/ Elastography Date of Exam: 08/15 12/05 Exam# [id number] Ordering Dr: Marino Trotter DO [id number] STUDY: ABDOMINAL ULTRASOUND - RIGHT UPPER QUADRANT; ELASTOGRAPHY REASON FOR VISIT: Female, 49 years old. Fatty infiltration of liver. TECHNIQUE: Ultrasound evaluation of the right upper quadrant was performed with real-time and static bolden-scale imaging. Point quantification shear wave elastography was performed (OncoGenex). TECHNICAL QUALITY: Adequate. COMPARISON: Comparison is made [...] 13:06 EST Reading Location ID and State: [address] [place] [address] , Service support , CC: Dr. Rogers Bellamy MD; Marino Trotter, Plastics Scientist: Signed Normal [facility] AST(SGOT)on 08-27-2024 AST [Catalytic activity/Vol] 17 U/L Normal 15-37 [facility] Comment on above: Result Comment: Slig ht Hemolysis, Result may be falsely increased. Performed By: #### L 501.0159, L501.7830, L500.2500, L501.2327 ####[facility] [address] [place], [place], [id number] Alanine Aminotransferas (SGP T)on 08-27-2024 ALT [Catalytic activity/Vol] 26 U/L Normal 13-56 [facility] Comment on above: Performed By: #### L 501.4100, L501.9985, L500.2500, L501.4405 ####[facility] [address] [place], [address] Basic Metabolic Profile (BMP )on 08-27-2024 BUN/CRE 24.7 RATIO High 10-20 [facility] Comment on above: Performed By: #### L 501.4100, L501.9985, L500.2500, L501.4405 ####[facility] [address] [place], [address] CA,Total 9.6 mg/dL Normal 8.5-10.1 [facility] Comment on above: Performed By: #### L 501.4100, L501.9985, L500.2500, L501.4405 ####[facility] [address] [place], [address] Chloride [Moles/Vol] 100 mmol/L Normal 98-107 [facility] Comment on above: Performed By: #### L 501.4100, L501.9985, L500.2500, L501.4405 ####[facility] [address] [place], [address] CO2 [Moles/Vol] 30.0 mmol/L Normal 21.0-32.0 [facility] Comment on above: Performed By: #### L 501.4100, L501.9985, L500.2500, L501.4405 ####[facility] [address] [place], [address] Creatinine [Mass/Vol] 0.69 mg/dL Normal 0.55-1.02 [facility] Comment on above: Result Comment: The validity of the calculated GFR GFRAA in patients over 70 years has not been determined. Clinical correlation is essential. Performed By: #### L 501.4100, L501.9985, L500.2500, L501.4405 ####[facility] [address] [place], [address] EST GFR - AA 118 mL/min Normal >60 [facility] Comment on above: Result Comment: Afri can [place] GFR Calc Performed By: #### L 501.4100, L501.9985, L500.2500, L501.4405 ####[facility] [address] [place], [address] GAP 8 Normal 5-15 [facility] Comment on above: Performed By: #### L 501.4100, L501.9985, L500.2500, L501.4405 ####[facility] [address] [place], [address] GFR/1.73 sq M.predicted among non-blacks MDRD (S/P/Bld) [Vol rate/Area] 97 mL/min/{1.73_m2} Normal >60 [facility] Comment on above: Result Comment: Non- GFR Calc Performed By: #### L 501.4100, L501.9985, L500.2500, L501.4405 ####[facility] [address] [place], [address] Glucose [Mass/Vol] 225 mg/dL High 74-106 [facility] Comment on above: Result Comment: Gluc ose result greater than or equal to 200 mg/dL suggests DIABETES MELLITUS per A.D.A. criteria. Performed By: #### L 501.4100, L501.9985, L500.2500, L501.4405 ####[facility] [address] [place], [address] Potassium [Moles/Vol] 4.1 mmol/L Normal 3.5-5.1 [facility] Comment on above: Result Comment: Slig ht Hemolysis, Result may be falsely increased. Performed By: #### L 501.4100, L501.9985, L500.2500, L501.4405 ####[facility] [address] [place], [address] Sodium [Moles/Vol] 138 mmol/L Normal 136-145 [facility] Comment on above: Performed By: #### L 501.4100, L501.9985, L500.2500, L501.4405 ####[facility] [address] [place], [address] Urea nitrogen [Mass/Vol] 17 mg/dL Normal 7-18 [facility] Comment on above: Performed By: #### L 501.4100, L501.9985, L500.2500, L501.4405 ####[facility] [address] [place], [address] Hemoglobin A1con 08-27-2024 HbA1c (Bld) [Mass fraction] 7.1 % High 3.8-5.6 [facility] Comment on above: Result Comment: Norm al < 5.7 % Prediabetic 5.7 - 6.4 % Diabetic >or= 6.5 % Please note range changes. Performed By: #### L 501.4100, L501.9985, L500.2500, L501.4405 ####[facility] [address] [place], [address] SCRN MAMM (CAD)W/ROMERO BILATo n 07-28-2024 SCRN MAMM (CAD)W/ROMERO BILAT [facility] Imaging Services [address] [place] [address] SCRN MAMM (CAD)W/ROMERO BILAT MR#: [id number] Acct: [id number] Name: JOANNE STALLWORTH Rep #: [id number] : 1975 F 49 From: Adán franklin MD PCP: Dr. Rogers Bellamy MD Status: PRE CLI Study: SCRN MAMM (CAD)W/ROMERO BILAT Date of Exam: 07/15 01/05 Exam# [id number] Ordering Dr: Rogers Bellamy MD [id number] MAMMOGRAPHY - BILATERAL SCREENING REASON FOR EXAM: [...] delay biopsy of a clinically suspicious abnormality. [id number] Electronically Signed: Adán East MD at 7:29 EST , CC: Dr. Rogers Bellamy MD Plastics Scientist: Signed Normal [facility] CNOVon 04-13-2023 CNOV Office Visit (NPTU10 ) JOANNE STALLWORTH ([id number]) 1975 F Date Time Provider Department 04/13/23 8:00 AM TAD ANDERSEN NPTU10 During your visit today, we recorded the following information about you: aTd Andersen, PhD 04/13/2023 3:35 PM Addendum PATIENT NAME: Joanne Stallworth 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 This neuropsychological assessment is part of a multidisciplinary evaluation conducted in the [facility]. 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 She reports stress related to management [...] high average. Processing speed on a digit-symbol field artillery targeting technician task was average. Speeded color naming was average, and speeded word reading was average. Performance on a sustained attention task showed poor vigilance and inattentiveness. Executive functioning: Mental flexibility and visuomotor set shifting was high average. Verbal response inhibition was extremely low, and the same task with a set switching component was average. Qualitatively, the molded goods embossing press operator observed the patient to slow down [...] of ge (more content not included)... Normal [facility] JOANNE STALLWORTH ([id number]) 1975 F Date Time Provider Department 02/16/23 SADIE RAMOS During your visit today, we recorded the following information about you: Roxanne Gregory 02/16/2023 8:33 AM Signed Lvm for patient to call so we can get her scheduled for a report visit with Dr Ramos Allergies As of Date: 02/16/2023 Noted Allergy Reaction LISINOPRIL 02/12/2009 PREDNISONE 12/19/2011 14 - Other: See Comments VALIUM (DIAZEPAM) 12/19/2011 14 - Other: See Comments ZITHROMAX (AZITHROMYCIN) 04/20/2006 Date Reviewed: 02/13/2023 Reviewed by: Almita Mazariegos - Fully Assessed Reason for Visit: Appointment [186] Cmt: Lvm for patient to call so we can get her scheduled for a report visit with Dr Ramos Prescriptions as of 02/16/2023 - ZINC ORAL [...] headache [G43.109] 08/20/2022 Encounter Status:Closed by ROXANNE GREGORY on 02/16/23 [facility] CNOVon 02-13-2023 CNOV Office Visit (MACY ) JOANNE STALLWORTH ([id number]) 1975 F Date Time Provider Department 02/13/23 1:30 PM SADIE RAMOS During your visit today, we recorded the following information about you: Pulse Blood pressure Weight 77/minute 126/71 131.1 kg Sadie Ramos MD 02/13/2023 5:22 PM Signed NEUROLOGY CONSULTATION, [facility] REASON FOR CONSULTATION: Cognitive concerns Consultation requested by Froilan Henao for an opinion regarding Joanne Stallworth. 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 She did not lose consciousness. Serological [...] help, co (more content not included)... Normal [facility] Vit B12 SerPl-mCncon 023 Cobalamin (Vitamin B12) [Mass/Vol] 340 pg/mL Normal 232-1245 [facility] Comment on above: Order Comment: Speci men Type: BLOOD SPECIMEN Ordering Facility: [facility] Address: [address] [place] [address] Performed By: #### 2 132-9 #### [facility] CLIA [id number] [facility] DESK [address] STATES OF [facility] MRI BRAIN WO IVCONon 022 [facility] Absolute lymphocyte counton 06-30-2022 Lymphocytes Auto (Unsp spec) [#/Vol] 2.70 10*3/uL 0.83-4.51 [facility] Work Phone: Basophil percentageon 2021 Basophils/100 WBC (Bld) 0.4 % 0-1 [facility] Work Phone: Bilirubin [Mass/Vol] 0.30 mg/dL 0.20-1.00 [facility] Work Phone: Comment on above: For patients on eltr ombopag therapy, use of Dimension [place] TBIL is not recommended. Eosinophils/100 WBC (Bld) 0.7 % 0-5 [facility] Work Phone: Neutrophils (Bld) [#/Vol] 6.2 10*3/uL 2.0-7.7 [facility] Work Phone: Neutrophils/100 WBC (Bld) 64.2 % 47-70 [facility] Work Phone: Protein [Mass/Vol] 7.7 g/dL 6.4-8.2 [facility] Work Phone: WBC (Bld) [#/Vol] 9.7 10*3/uL 4.4-11.0 [facility] Work Phone: Blood erythrocytes count (nu mber/volume)on 06-30-2022 RBC (Bld) [#/Vol] 4.87 10*6/uL 4.2-5.4 [facility] Work Phone: Blood hemoglobin measurement (mass/volume)on 06-30-2022 Hemoglobin (Bld) [Mass/Vol] 15.1 g/dL 12.0-15.0 [facility] Work Phone: Blood lymphocytes/100 leukoc yteson 06-30-2022 Lymphocytes/100 WBC (Bld) 27.9 % 19-41 [facility] Work Phone: Blood monocytes/100 leukocyt eson 06-30-2022 Monocytes/100 WBC (Bld) 5.9 % 0-10 [facility] Work Phone: Blood platelet mean volumeon 06-30-2022 Platelet mean volume (Bld) [Entitic vol] 10.0 fL 6.2-12.0 [facility] Work Phone: Determination of erythrocyte mean corpuscular volume (MCV)on 06-30-2022 MCV (RBC) [Entitic vol] 92.0 fL 81-99 [facility] Work Phone: Direct bilirubinon Bilirubin.direct [Mass/Vol] 0.07 mg/dL 0.00-0.30 [facility] Work Phone: [phone] Hematocrit Auto (Bld) [Volum e fraction]on 06-30-2022 Hematocrit (Bld) [Volume fraction] 44.8 % 37-47 [facility] Work Phone: [phone] Laboratory - Chemistry and C hemistry - challengeon 06-30-2022 ALP [Catalytic activity/Vol] 79 U/L 45-117 [facility] Work Phone: [phone] ALT [Catalytic activity/Vol] 20 U/L 13-56 [facility] Work Phone: [phone] Globulin (S) [Mass/Vol] 4.0 g/dL 2.2-4.2 [facility] Work Phone: [phone] Laboratory - Hematology and Cell countson 06-30-2022 Erythrocyte distribution width (RBC) [Entitic vol] 39.8 fL 35.1-43.9 [facility] Work Phone: [phone] Erythrocyte distribution width (RBC) [Ratio] 11.9 % 11.6-14.6 [facility] Work Phone: [phone] Immature granulocytes/100 WBC (Bld) 0.900 % 0.0-0.9 [facility] Work Phone: [phone] Comment on above: IG% - Immature Granu locytes (promyelocytes, myelocytes and metamyelocytes) > 1% indicates that a LEFT SHIFT is Present. MCH (RBC) [Entitic mass] 31.0 pg 27.0-32.0 [facility] Work Phone: [phone] Nucleated RBC/100 WBC (Bld) [Ratio] 0 % 0-5 [facility] Work Phone: [phone] MCHC Auto (RBC) [Mass/Vol]on 06-30-2022 MCHC (RBC) [Mass/Vol] 33.7 g/dL 32-36 [facility] Work Phone: [phone] No Panel Informationon 06-30 Estimated GFR (MDRD) Amer 130 mL/min >60 [facility] Work Phone: [phone] Comment on above: GFR Calc Estimated GFR (MDRD) Non-Af Amer 107 mL/min >60 [facility] Work Phone: Comment on above: Non- GFR Calc Platelets bldon 06-30-2022 Platelets (Bld) [#/Vol] 387 10*3/uL 150-450 [facility] Work Phone: Serum or plasma albumin hilton urement (mass/volume)on 06-30-2022 Albumin [Mass/Vol] 3.7 g/dL 3.2-5.0 [facility] Work Phone: Serum or plasma creatinine m easurement (mass/volume)on 06-30-2022 Creatinine [Mass/Vol] 0.64 mg/dL 0.55-1.02 [facility] Work Phone: Comment on above: The validity of the calculated GFR & GFRAA in patients over 70 years has not been determined. Clinical correlation is essential. Thin prep Papanicolaou smear with manual screeningon 06-30-2022 Thin prep Papanicolaou smear with manual screening 10 U/L 15-37 [facility] Work Phone: Basophil percentageon 2021 Chloride [Moles/Vol] 101 mmol/L 98-107 [facility] Work Phone: Cholesterol [Mass/Vol] 157 mg/dL <200 [facility] Work Phone: Comment on above: <200 mg/dL Desirable 200-240 mg/dL Borderline >240 mg/dL High Risk Glucose [Mass/Vol] 161 mg/dL 74-106 [facility] Work Phone: Comment on above: Fasting Glucose resu lt greater than or equal to 126 mg/dL suggests DIABETES MELLITUS per A.D.A. criteria. Potassium [Moles/Vol] 3.6 mmol/L 3.5-5.1 [facility] Work Phone: Sodium [Moles/Vol] 138 mmol/L 136-145 [facility] Work Phone: [phone] Triglyceride [Mass/Vol] 261 mg/dL <199 [facility] Work Phone: Comment on above: The drugs N-Acetylcy steine and Metamizole may falsely depress this assay.Serum Triglycerides Reference Interval Normal <150 mg/dL Borderline high 150 - 199 mg/dL High 200 - 499 mg/dL Very High > or = 500 mg/dL Laboratory - Chemistry and C hemistry - challengeon 05-03-2022 ALT [Catalytic activity/Vol] 21 U/L 13-56 [facility] Work Phone: CO2 [Moles/Vol] 29.0 mmol/L 21.0-32.0 [facility] Work Phone: Urea nitrogen/Creatinine [Mass ratio] 17.6 mg/mg 10-20 [facility] Work Phone: No Panel Informationon 05-03 Estimated GFR (MDRD) Amer 148 mL/min >60 [facility] Work Phone: Comment on above: GFR Calc Estimated GFR (MDRD) Non-Af Amer 123 mL/min >60 [facility] Work Phone: Comment on above: Non- GFR Calc Urine Microalbumin/Creatinine Ratio 24.0 mg/g CRE <30 [facility] Work Phone: Serum or plasma calcium hilton urement (mass/volume)on 05-03-2022 Calcium [Mass/Vol] 8.9 mg/dL 8.5-10.1 [facility] Work Phone: Serum or plasma cholesterol in HDL measurement (mass/volume)on 05-03-2022 Cholesterol in HDL [Mass/Vol] 39 mg/dL >40 [facility] Work Phone: Comment on above: The drugs N-Acetylcy steine and Metamizole may falsely depress this assay. Reference Range HDL <40 mg/dL Low HDL Cholesterol HDL >or= 60 mg/dL High HDL Cholesterol Serum or plasma cholesterol in VLDL measurement (mass/volume)on 05-03-2022 Cholesterol in VLDL [Mass/Vol] 52 mg/dL 5-40 [facility] Work Phone: Serum or plasma creatinine m easurement (mass/volume)on 05-03-2022 Creatinine [Mass/Vol] 0.57 mg/dL 0.55-1.02 [facility] Work Phone: Comment on above: The validity of the calculated GFR & GFRAA in patients over 70 years has not been determined. Clinical correlation is essential. Serum or plasma low density lipoprotein (LDL) cholesterol measurement (mass/volume)on 05-03-2022 Cholesterol in LDL [Mass/Vol] 66 mg/dL 0-130 [facility] Work Phone: Serum or plasma urea nitroge n measurement (mass/volume)on 05-03-2022 Urea nitrogen [Mass/Vol] 10 mg/dL 7-18 [facility] Work Phone: Thin prep Papanicolaou smear with manual screeningon 05-03-2022 Thin prep Papanicolaou smear with manual screening 11 U/L 15-37 [facility] Work Phone: Thin prep Papanicolaou smear with manual screening 8 5-15 [facility] Work Phone: Thin prep Papanicolaou smear with manual screening 29.0 mg/L NO RANGE EST. [facility] Work Phone: Urine creatinine measurement (mass/volume)on 05-03-2022 Creatinine (U) [Mass/Vol] 121.00 mg/dL NO RANGE EST. [facility] Work Phone: Whole blood hemoglobin A1c/t otal hemoglobin ratio (mass fraction)on 05-03-2022 HbA1c (Bld) [Mass fraction] 6.7 % 3.8-5.6 [facility] Work Phone: Comment on above: Normal < 5.7 % Predi abetic 5.7 - 6.4 % Diabetic >or= 6.5 % Please note range changes. No Panel Informationon 04-13 POC SARS CoV-2 Antigen Positive [facility] Work Phone: Absolute lymphocyte counton 04-01-2022 Lymphocytes Auto (Unsp spec) [#/Vol] 2.54 10*3/uL 0.83-4.51 [facility] Work Phone: Atypical perinuclear antineu trophil cytoplasmic antibodies measurementon 04-01-2022 Neutrophil cytoplasmic Ab.perinuclear.atypical IF (S) [Titer] <1:20 titer Neg:<1:20 [facility] Work Phone: Comment on above: The atypical pANCA p attern has been observed in asignificant percentage of patients with ulcerative colitis,primary sclerosing cholangitis and autoimmune hepatitis. Basophil percentageon 2021 Basophils/100 WBC (Bld) 0.5 % 0-1 [facility] Work Phone: Bilirubin [Mass/Vol] 0.40 mg/dL 0.20-1.00 [facility] Work Phone: Comment on above: For patients on eltr ombopag therapy, use of Dimension [place] TBIL is not recommended. Eosinophils/100 WBC (Bld) 0.7 % 0-5 [facility] Work Phone: Neutrophils (Bld) [#/Vol] 6.5 10*3/uL 2.0-7.7 [facility] Work Phone: Neutrophils/100 WBC (Bld) 66.4 % 47-70 [facility] Work Phone: Protein [Mass/Vol] 8.2 g/dL 6.4-8.2 [facility] Work Phone: WBC (Bld) [#/Vol] 9.8 10*3/uL 4.4-11.0 [facility] Work Phone: Blood erythrocytes count (nu mber/volume)on 04-01-2022 RBC (Bld) [#/Vol] 5.14 10*6/uL 4.2-5.4 [facility] Work Phone: Blood hemoglobin measurement (mass/volume)on 04-01-2022 Hemoglobin (Bld) [Mass/Vol] 15.9 g/dL 12.0-15.0 [facility] Work Phone: Blood lymphocytes/100 leukoc yteson 04-01-2022 Lymphocytes/100 WBC (Bld) 25.9 % 19-41 [facility] Work Phone: Blood monocytes/100 leukocyt eson 04-01-2022 Monocytes/100 WBC (Bld) 5.9 % 0-10 [facility] Work Phone: Blood platelet mean volumeon 04-01-2022 Platelet mean volume (Bld) [Entitic vol] 9.5 fL 6.2-12.0 [facility] Work Phone: Determination of erythrocyte mean corpuscular volume (MCV)on 04-01-2022 MCV (RBC) [Entitic vol] 93.4 fL 81-99 [facility] Work Phone: Direct bilirubinon Bilirubin.direct [Mass/Vol] 0.08 mg/dL 0.00-0.30 [facility] Work Phone: Hematocrit Auto (Bld) [Volum e fraction]on 04-01-2022 Hematocrit (Bld) [Volume fraction] 48.0 % 37-47 [facility] Work Phone: Laboratory - Chemistry and C hemistry - challengeon 04-01-2022 ALP [Catalytic activity/Vol] 68 U/L 45-117 [facility] Work Phone: ALT [Catalytic activity/Vol] 27 U/L 13-56 [facility] Work Phone: [phone] Globulin (S) [Mass/Vol] 4.0 g/dL 2.2-4.2 [facility] Work Phone: Laboratory - Hematology and Cell countson 04-01-2022 Erythrocyte distribution width (RBC) [Entitic vol] 39.8 fL 35.1-43.9 [facility] Work Phone: Erythrocyte distribution width (RBC) [Ratio] 11.7 % 11.6-14.6 [facility] Work Phone: Immature granulocytes/100 WBC (Bld) 0.600 % 0.0-0.9 [facility] Work Phone: Comment on above: IG% - Immature Granu locytes (promyelocytes, myelocytes and metamyelocytes) > 1% indicates that a LEFT SHIFT is Present. MCH (RBC) [Entitic mass] 30.9 pg 27.0-32.0 [facility] Work Phone: Nucleated RBC/100 WBC (Bld) [Ratio] 0 % 0-5 [facility] Work Phone: MCHC Auto (RBC) [Mass/Vol]on 04-01-2022 MCHC (RBC) [Mass/Vol] 33.1 g/dL 32-36 [facility] Work Phone: Platelets bldon 04-01-2022 Platelets (Bld) [#/Vol] 455 10*3/uL 150-450 [facility] Work Phone: Serum classic neutrophil cyt oplasmic antibody assay (units/volume)on 04-01-2022 Neutrophil cytoplasmic Ab.classic Qn (S) <1:20 titer Neg:<1:20 [facility] Work Phone: Serum or plasma C reactive p rotein measurement (mass/volume)on 04-01-2022 CRP [Mass/Vol] 7.89 mg/L 0.0-3.0 [facility] Work Phone: Comment on above: C-Reactive Protein ( CRP) provides useful information for thediagnosis, therapy and monitoring of inflammatory processesand associated diseases. For the evaluation of Relative Riskfor Cardiovascular Disease, a High Sensitivity CRP (HSCRP)should be ordered. Serum or plasma actin IgG an tibody assay (units/volume)on 04-01-2022 Actin IgG Qn 3 Units 0-19 [facility] Work Phone: Comment on above: Negative 0 - 19 Weak positive 20 - 30 Moderate to strong positive >30 Actin Antibodies are found in 52-85% of patients with autoimmune hepatitis or chronic active hepatitis and in 22% of patients with primary biliary cirrhosis.Performed at: [address] [id number] Director: Tacho Redmond PhD, Phone: [phone] Serum or plasma albumin hilton urement (mass/volume)on 04-01-2022 Albumin [Mass/Vol] 4.2 g/dL 3.2-5.0 [facility] Work Phone: Serum perinuclear neutrophil cytoplasmic antibody titer by immunofluorescenceon 04-01-2022 Neutrophil cytoplasmic Ab.perinuclear IF (S) [Titer] <1:20 titer Neg:<1:20 [facility] Work Phone: Comment on above: The presence of posi tive fluorescence exhibiting P-ANCA orC-ANCA patterns alone is not specific for the diagnosis ofWegener's Granulomatosis (WG) or microscopic polyangiitis.Decisions about treatment should not be based solely onANCA IFA results. The [employer] Consensusrecommends follow up testing of positive sera with both NH-3 and MPO-ANCA enzyme immunoassays. As many as 5% serumsamples are positive only by EIA. Ref. AM J Clin [id number];111:507-513. Thin prep Papanicolaou smear with manual screeningon 04-01-2022 Thin prep Papanicolaou smear with manual screening 20 U/L 15-37 [facility] Work Phone: Basophil percentageon 2021 Bilirubin [Mass/Vol] 0.30 mg/dL 0.20-1.00 [facility] Work Phone: Comment on above: For patients on eltr ombopag therapy, use of Dimension [place] TBIL is not recommended. Chloride [Moles/Vol] 102 mmol/L 98-107 [facility] Work Phone: Glucose [Mass/Vol] 189 mg/dL 74-106 [facility] Work Phone: Comment on above: Fasting Glucose resu lt greater than or equal to 126 mg/dL suggests DIABETES MELLITUS per A.D.A. criteria. Potassium [Moles/Vol] 3.6 mmol/L 3.5-5.1 [facility] Work Phone: Protein [Mass/Vol] 7.5 g/dL 6.4-8.2 [facility] Work Phone: Sodium [Moles/Vol] 140 mmol/L 136-145 [facility] Work Phone: Laboratory - Chemistry and C hemistry - challengeon 03-21-2022 ALP [Catalytic activity/Vol] 75 U/L 45-117 [facility] Work Phone: ALT [Catalytic activity/Vol] 26 U/L 13-56 [facility] Work Phone: CO2 [Moles/Vol] 28.0 mmol/L 21.0-32.0 [facility] Work Phone: Globulin (S) [Mass/Vol] 3.8 g/dL 2.2-4.2 [facility] Work Phone: Urea nitrogen/Creatinine [Mass ratio] 17.4 mg/mg 10-20 [facility] Work Phone: No Panel Informationon 03-21 Estimated GFR (MDRD) Amer 108 mL/min >60 [facility] Work Phone: Comment on above: GFR Calc Estimated GFR (MDRD) Non-Af Amer 89 mL/min >60 [facility] Work Phone: Comment on above: Non- GFR Calc Serum or plasma albumin hilton urement (mass/volume)on 03-21-2022 Albumin [Mass/Vol] 3.7 g/dL 3.2-5.0 [facility] Work Phone: Serum or plasma albumin/glob ulin mass ratioon 03-21-2022 Albumin/Globulin [Mass ratio] 1.0 {ratio} 0.9-2.4 [facility] Work Phone: [phone] Serum or plasma calcium hilton urement (mass/volume)on 03-21-2022 Calcium [Mass/Vol] 9.5 mg/dL 8.5-10.1 [facility] Work Phone: Serum or plasma creatinine m easurement (mass/volume)on 03-21-2022 Creatinine [Mass/Vol] 0.75 mg/dL 0.55-1.02 [facility] Work Phone: Comment on above: The validity of the calculated GFR & GFRAA in patients over 70 years has not been determined. Clinical correlation is essential. Serum or plasma urea nitroge n measurement (mass/volume)on 03-21-2022 Urea nitrogen [Mass/Vol] 13 mg/dL 7-18 [facility] Work Phone: Thin prep Papanicolaou smear with manual screeningon 03-21-2022 Thin prep Papanicolaou smear with manual screening 16 U/L 15-37 [facility] Work Phone: Thin prep Papanicolaou smear with manual screening 10 5-15 [facility] Work Phone: Vital Signs Date Time Vital Sign Value Performing Clinician Faci lity 02-13-2023 14:14-0400 Body weight 131.09 kg Sadie Ramos MD Work Phone: [facility] 02-13-2023 14:14-0400 Diastolic blood pressure 71 mm[Hg] Sadie Ramos MD Work Phone: [facility] 02-13-2023 14:14-0400 Heart rate 77 /min Sadie Ramos MD Work Phone: [facility] 02-13-2023 14:14-0400 Systolic blood pressure 126 mm[Hg] Sadie Ramos MD Work Phone: [facility] 07-10-2022 16:02-0400 Body height 180.[address] Rogers Bellamy Work Phone: [facility] Work Phone: 07-10-2022 16:02-0400 Body mass index (BMI) [Ratio] 38.7 kg/m2 Dr. Rogers Bellamy Work Phone: [facility] Work Phone: 07-10-2022 16:02-0400 Body temperature 98 [degF] Dr. Rogers Bellamy Work Phone: [facility] Work Phone: 07-10-2022 16:02-0400 Body weight 126.[address] Rogers Bellamy Work Phone: [facility] Work Phone: 07-10-2022 16:02-0400 Diastolic blood pressure 82 mm[Hg] Dr. Rogers Bellamy Work Phone: [facility] Work Phone: 07-10-2022 16:02-0400 Heart rate 98 /min Dr. Rogers Bellamy Work Phone: [facility] Work Phone: 07-10-2022 16:02-0400 Respiratory rate 16 /min Dr. Rogers Bellamy Work Phone: [facility] Work Phone: 07-10-2022 16:02-0400 SaO2% (BldA) [Mass fraction] 98 % Dr. Rogers Bellamy Work Phone: [facility] Work Phone: 07-10-2022 16:02-0400 Systolic blood pressure 132 mm[Hg] Dr. Rogers Bellamy Work Phone: [facility] Work Phone: 04-13-2022 13:42-0400 Body temperature 95.2 [degF] Dr. Rogers Bellamy Work Phone: [facility] Work Phone: 04-13-2022 13:42-0400 Diastolic blood pressure 80 mm[Hg] Dr. Rogers Bellamy Work Phone: [facility] Work Phone: 04-13-2022 13:42-0400 Heart rate 88 /min Dr. Rogers Bellamy Work Phone: [facility] Work Phone: 04-13-2022 13:42-0400 Respiratory rate 16 /min Dr. Rogers Bellamy Work Phone: [facility] Work Phone: 04-13-2022 13:42-0400 SaO2% (BldA) [Mass fraction] 97 % Dr. Rogers Bellamy Work Phone: [facility] Work Phone: 04-13-2022 13:42-0400 Systolic blood pressure 140 mm[Hg] Dr. Rogers Bellamy Work Phone: [facility] Work Phone: 03-05-2022 16:55-0400 Body height 180.[address] Rogers Bellamy Work Phone: [facility] Work Phone: 03-05-2022 16:55-0400 Body mass index (BMI) [Ratio] 39.7 kg/m2 Dr. Rogers Bellamy Work Phone: [facility] Work Phone: 03-05-2022 16:55-0400 Body temperature 97.9 [degF] Dr. Rogers Bellamy Work Phone: [facility] Work Phone: 03-05-2022 16:55-0400 Body weight 129.[address] Rogers Bellamy Work Phone: [facility] Work Phone: 03-05-2022 16:55-0400 Diastolic blood pressure 86 mm[Hg] Dr. Rogers Bellamy Work Phone: [facility] Work Phone: 03-05-2022 16:55-0400 Heart rate 80 /min Dr. Rogers Bellamy Work Phone: [facility] Work Phone: 03-05-2022 16:55-0400 Respiratory rate 18 /min Dr. Rogers Bellamy Work Phone: [facility] Work Phone: 03-05-2022 16:55-0400 SaO2% (BldA) [Mass fraction] 98 % Dr. Rogers Bellamy Work Phone: [facility] Work Phone: 03-05-2022 16:55-0400 Systolic blood pressure 128 mm[Hg] Dr. Rogers Bellamy Work Phone: [facility] Work Phone: 11-27-2021 17:10-0400 Body mass index (BMI) [Ratio] 41.7 kg/m2 Dr. Rogers Bellamy Work Phone: [facility] Work Phone: 11-27-2021 17:10-0400 Body temperature 98.2 [degF] Dr. Rogers Bellamy Work Phone: [facility] Work Phone: 11-27-2021 17:10-0400 Body weight 135.[address] Rogers Bellamy Work Phone: [facility] Work Phone: 11-27-2021 17:10-0400 Diastolic blood pressure 80 mm[Hg] Dr. Rogers Bellamy Work Phone: [facility] Work Phone: 11-27-2021 17:10-0400 Heart rate 92 /min Dr. Rogers Bellamy Work Phone: [facility] Work Phone: 11-27-2021 17:10-0400 Respiratory rate 14 /min Dr. Rogers Bellamy Work Phone: [facility] Work Phone: 11-27-2021 17:10-0400 SaO2% (BldA) [Mass fraction] 99 % Dr. Rogers Bellamy Work Phone: [facility] Work Phone: 11-27-2021 17:10-0400 Systolic blood pressure 124 mm[Hg] Dr. Rogers Bellamy Work Phone: [facility] Work Phone: Encounters Encounter Date Encounter Type Care Provider Facility Start: 08-11-2025 ambulatory Lyndseybambergismael Bellamy Facili ty:[facility] Start: 07-01-2025 End: 07-01-2025 ambulatory [facility] Дмит[facility] Facility:[facility] Start: 06-20-2025 End: 06-20-2025 ambulatory Lyndseypayton Choenaune Facility:[facility] Start: 06-02-2025 End: 06-02-2025 ambulatory Marino Trotter Facility:[facility] Start: 05-22-2025 End: 05-22-2025 ambulatory Velmabe Sarah Bethe Facility:[facility] Start: 05-13-2025 ambulatory Efjarret Choenaune Facili ty:[facility] Start: 05-13-2025 End: 05-13-2025 ambulatory April Schmidt Facility:[facility] Start: 04-17-2025 End: 04-17-2025 ambulatory Lyndsey[facility] Sarah Bethe Facility:[facility] Start: 04-12-2025 Encounter for gynecological examination (general) (routine) without abnormal findings Beatrice Martin [facility] Start: 04-12-2025 End: 04-12-2025 [facility] Start: 04-12-2025 End: 04-12-2025 [facility] Start: 03-14-2025 End: 04-07-2025 ambulatory Anna Huang Facility:[facility] Start: 02-27-2025 End: 02-27-2025 [facility] Start: 02-23-2025 End: 03-13-2025 ambulatory Anna DiLauro Facility:[facility] Start: 02-15-2025 End: 02-17-2025 ambulatory Anna DiLauro Facility:[facility] Start: 02-13-2025 End: 02-13-2025 ambulatory Maciel L Seese Facility:[facility] Start: 01-23-2025 End: 01-23-2025 ambulatory Anna DiLauro Facility:[facility] Start: 01-18-2025 End: 01-18-2025 ambulatory Efewongbe Oleghe Facility:[facility] Start: 01-16-2025 End: 02-11-2025 ambulatory Anna DiLauro Facility:[facility] Start: 12-05-2024 End: 12-05-2024 ambulatory Marino Trotter Facility:[facility] Start: 12-05-2024 End: 12-05-2024 ambulatory Maciel Alcaraz Facility:[facility] Start: 12-03-2024 End: 12-03-2024 ambulatory SIMI SAHU Facility:[facility] Start: 11-25-2024 End: 11-25-2024 ambulatory Fernando BENTON Facility:[facility] Start: 10-04-2024 Encounter for other preprocedural examination Marino Trotter [facility] Start: 09-12-2024 End: 09-12-2024 ambulatory Efewongbe Oleghe [facility] Start: 09-12-2024 End: 09-12-2024 ambulatory Efewongbe Oleghe Facility:[facility] Start: 09-09-2024 End: 09-09-2024 ambulatory Efewongbe Oleghe Facility:[facility] Start: 09-05-2024 End: 09-05-2024 ambulatory Efewongbe Oleghe Facility:[facility] Start: 08-27-2024 End: 08-27-2024 ambulatory Efewongbe Oleghe Facility:[facility] Start: 07-28-2024 End: 07-28-2024 ambulatory Efewongbe Oleghe Facility:[facility] Start: 06-26-2023 End: 06-26-2023 ambulatory FROILAN HENAO Facility:[facility] Start: 05-02-2023 End: 05-02-2023 ambulatory SADIE RAMOS Facility:[facility] Start: 04-13-2023 End: 04-13-2023 ambulatory Tad Andersen PhD Work Phone: Neurology Comment on above: Neuropsychological e valuation Start: 04-13-2023 E-mail encounter luigi holden caregiver Tad Andersen PhD Work Phone: [facility] Start: 04-13-2023 End: 04-13-2023 Patient encounter procedure Tad Andersen PhD Work Phone: Neuropyschology Comment on above: Cognitive disorder ( Primary Dx); Migraine aura without headache; ELVIS (obstructive sleep apnea) Start: 02-16-2023 Telephone encounter Sadie Ramos MD Work Phone: [facility] Comment on above: Appointment ([facility] for patient to call so we can get her scheduled for a report visit with Dr Ramos ) Start: 02-13-2023 End: 02-13-2023 ambulatory SADIE RAMOS Facility:[facility] Start: 02-13-2023 End: 02-13-2023 ambulatory SADIE RAMOS Facility:[facility] Start: 02-13-2023 End: 02-13-2023 Patient encounter procedure Sadie Ramos MD Work Phone: Neurology Comment on above: Memory impairment (P rimary Dx); Cognitive complaints; Psychophysiologic insomnia; Stress at work; Obstructive sleep apnea Start: 10-13-2022 Telephone encounter Froilan Ascencio DO Work Phone: Neurology Comment on above: 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 (Ub[employer] ) Start: 09-21-2022 ambulatory Froilan Henao D O Work Phone: Neurology Comment on above: Plans Start: 09-21-2022 E-mail encounter luigi holden caregiver Froilan Henao DO Work Phone: [facility] Start: 08-22-2022 End: 08-22-2022 Subsequent hospital visit by physician Mri [facility] (I-Stat/1.5t) Work Phone: Radiology Comment on above: Cognitive impairment , mild, so stated [G31.84] Start: 08-20-2022 End: 08-20-2022 Telemedicine consultation with patient Froilan Henao DO Work Phone: [facility] Start: 08-20-2022 End: 08-20-2022 ambulatory Froilan Henao DO Work Phone: Neurology Comment on above: [...] encounter procedure Dr. Rogers Bellamy Work Phone: [facility] Start: 06-30-2022 End: 06-30-[address] Rogers Bellamy Work Phone: [facility] Gastroenterology Start: 05-03-2022 End: 05-03-[address] Rogers Bellamy Work Phone: [facility] Work Phone: Start: 05-03-2022 End: 05-03-[address] Rogers Bellamy Work Phone: [facility]-Laboratory Start: 04-23-2022 End: 04-23-[address] Rogers Bellamy Work Phone: [facility]-Ultrasound, [facility] Start: 04-13-2022 End: 04-13-[address] Rogers Bellamy Work Phone: [facility] Start: 04-01-2022 End: 04-01-[address] Rogers Bellamy Work Phone: [facility] Start: 03-21-2022 End: 03-21-[address] Rogers Bellamy Work Phone: [facility] Start: 03-05-2022 End: 03-05-[address] Rogers Bellamy Work Phone: [facility] Start: 01-14-2022 Telephone encounter Froilan P Bar on DO Work Phone: Neurology Comment on above: 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 (Nurtec 75mg 05/13) Start: 01-14-2022 End: 01-14-2022 ambulatory Froilan P Henao DO Work Phone: Neurology Comment on above: Migraine without aur a and without status migrainosus, not intractable (Primary Dx); Migraine with aura and without status migrainosus, not intractable; Chronic daily headache; Chronic tension-type headache, intractable Start: 01-14-2022 End: 01-14-2022 Telemedicine consultation with patient Froilan P Henao DO Work Phone: [facility] Start: 12-30-2021 End: 12-30-[address] Rogers Bellamy Work Phone: [facility] G[facility] Start: 11-27-2021 End: 11-27-[address] Rogers Bellamy Work Phone: [facility] Procedures Date Procedure Procedure Detail Performing Clinician Start: 08-22-2022 Mri brain brain stem w/o contrast material Froilan P Henao DO Work Phone: Start: 04-23-[address] Rogers Bellamy Work Phone: Start: 04-23-[address] Rogers Bellamy Work Phone: Start: 01-13-2022 Adult depression scr eening assessment Froilan Henao DO Work Phone: Plan of Treatment Date Care Activity Detail Author Start: 03-15-2024 Urine microalbumin profile [facility] Start: 02-14-2024 BP CONTROLLED (<130/80) BP CONTROLLE D (<130/80) [facility] Start: 05-15-2023 Covid-19 Vaccine () Covid-19 Vaccine () [facility] Start: 05-15-2023 Influenza vaccination [facility] Start: 02-13-2023 End: 04-15-2023 Cobalamin (Vitamin B12) [Mass/volume] in Serum or Plasma [facility] Work Phone: Comment on above: Expected: 02/13/2023 , Expires: 04/15/2023 Start: 01-13-2023 Adult depression screening assessment DEPRESSION SCREENING [facility] Start: 09-14-2022 DEPRESSION ASSESSMENT DEPRESSION ASS ESSMENT [facility] Start: 2022 COLOGUARD (FIT-DNA) COLOGUARD (FIT-D NA) [facility] Start: 2022 Colonoscopy COLONOSCOPY [facility] Start: 2022 COLORECTAL CANCER SCREENING COLORECTAL CANCER SCREENING [facility] Start: [address] COLONOGRAPHY [facility] Start: 2022 DIABETES SCREEN DIABETES SCREEN [facility] Start: 2022 Diabetes Screening Diabetes Screenin g [facility] Start: 2022 FECAL OCCULT BLOOD FECAL OCCULT BLOO D [facility] Start: 2022 Lipid 1996 panel - S eric or Plasma Lipid Screening [facility] Start: 2022 LIPID SCREEN LIPID SCREEN [facility] Start: 2022 SIGMOIDOSCOPY SIGMOIDOSCOPY [facility] Start: 05-22-2022 COVID-19 VACCINE (5 - Booster for Moderna series) COVID-19 VACCINE (5 - Booster for Moderna series) [facility] Start: 05-22-2022 COVID-19 VACCINE (5 - Moderna series) COVID-19 VACCINE (5 - Moderna series) [facility] Start: 03-05-2022 Patient referral [facility] Work Phone: Start: 09-14-2021 DEPRESSION ASSESSMENT DEPRESSION ASS ESSMENT [facility] Start: 03-10-2018 HPV TESTING HPV TESTING [facility] Start: 03-10-2018 PAP TESTING PAP TESTING [facility] Start: 2017 Mammography [facility] Start: 1995 ANNUAL PCP TEAM WOOL DYER CARLYN DISEASE VISIT ANNUAL PCP TEAM CHRONIC DISEASE VISIT [facility] Start: 1995 BP CONTROLLED (<130/80) BP CONTROLLE D (<130/80) [facility] Start: 1995 HEPATITIS C SCREENING HEPATITIS C SC REENING [facility] Start: 1995 HIV SCREENING HIV SCREENING [facility] Start: 1977 HEPATITIS B (1 of 3 - 3-dose series) HEPATITIS B (1 of 3 - 3-dose series) [facility] Start: 1977 Hepatitis B Vaccine (1 of 3 - 3-dose series) Hepatitis B Vaccine (1 of 3 - 3-dose series) [facility] End: 09-19-2023 Mri brain brain stem w/o contrast material MRI BRAIN WO IVCON Radiology Routine Cognitive impairment, mild, so stated Memory impairment 1 Occurrences starting 08/20/2022 until 09/19/2023 [facility] Work Phone: Comment on above: 1 Occurrences starti ng 08/20/2022 until 09/19/2023 Patient referral [facility] Work Phone: [facility] Immunizations Immunization Date Immunization Notes Care Provider Dick eastman 07-10-2022 influenza, seasonal, injectable Dr. Rogers Bellamy Work Phone: [facility] Work Phone: 07-10-2022 influenza virus vaccine, unspecified formulation Mri (I-Stat/1.5t) Work Phone: [facility] 03-15-2014 tetanus toxoid, redu chuyita diphtheria toxoid, and acellular pertussis vaccine, adsorbed Froilan Henao DO Work Phone: [facility] Work Phone: Payers Date Payer Category Payer Unknown [id number] 2025 Unknown S 2024 Unknown [id number] 2024 Unknown [id number] 2024 Self-pay [id number] 2021 Unknown [employer] SS PPO [id number] 2021-Present [phone] [address] [place] [address] PPO [id number] 2021 Unknown [id number] 2021 Private Health Insurance [facility] CHO[facility] PLUS [id number] 2021-Present [phone] [address] [place] [address] O [id number] 2019 Unknown [id number]. [id number] 2019 Unknown [id number]. 1.13.159.2. [id number] 2011 Private Health Insurance [id number] Private Health Insurance [id number] Unknown [facility] JUANCARLOS [id number] Unknown [id number] 2.16.840.1.951004.3.579.2. 462 Unknown [id number] 2.16.840.1.829303.3.579.2. 462 Unknown [id number] 2.16.840.1.097854.3.579.2. 462 Unknown [id number] 2.16.840.1.009755.3.579.2. 462 Unknown [id number] 2.16.840.1.829444.3.579.2. 462 Unknown [id number] 2.16.840.1.746783.3.579.2. 462 Unknown [id number] 2.16.840.1.265233.3.579.2. 462 Unknown [id number] 2.840.1.913339.3.579.2. 462 Unknown [id number] 2.16.840.1.103223.3.579.2. 462 Unknown [id number] 2.840.1.452600.3.579.2. 462 Unknown [id number] 2.16840.1.866208.3.579.2. 462 Unknown [id number] 2.16840.1.076203.3.579.2. 462 Unknown [id number] 2.16.840.1.123182.3.579.2. 462 Unknown [id number] 2.16840.1.696535.3.579.2. 462 Unknown [id number] 2.16840.1.706765.3.579.2. 462 Unknown [id number] 2.16.840.1.071181.3.579.2. 462 Unknown [id number] 2.16.840.1.392639.3.579.2. 462 Unknown [id number] 2.16.840.1.988965.3.579.2. 462 Unknown [id number] 2.16.840.1.990876.3.579.2. 462 Unknown [id number] 2.16840.1.362438.3.579.2. 462 Unknown [id number] 2.16.840.1.714140.3.579.2. 462 Unknown [id number] 2.16.840.1.792803.3.579.2. 462 Unknown [id number] 2.16.840.1.755254.3.579.2. 462 Unknown [id number] 2.16.840.1.318880.3.579.2. 462 Unknown [id number] 2.16.840.1.601477.3.579.2. 462 Unknown [id number] 2.16.840.1.502551.3.579.2. 462 Unknown [id number] 2.16.840.1.125938.3.579.2. 462 Unknown [id number] 2.16840.1.500087.3.579.2. 462 Unknown [id number] 2.16840.1.653647.3.579.2. 462 Social History Date Type Detail Facility [facility]: [facility] Start: 07-12-2021 End: 04-30-2022 Alcohol intake Current non-drinker of alcohol (finding) [facility] Start: 1975 Sex Assigned At Female [facility] Start: 03-05-2022 End: 07-10-2022 Tobacco smoking status VAIS Unknown if ever smoked [facility] Work Phone: Start: 12-19-2011 Tobacco use and exposure Smokeless tobacco non-user [facility] Start: 08-19-2022 End: 02-13-2023 History of Social function [facility] Start: 08-19-2022 End: 02-13-2023 Tobacco use panel [facility] Adult Depression Screening Assessment 0 [facility] Start: 08-01-2021 Gender identity Identifies as female gender (finding) [facility] Start: 08-01-2021 Sexual orientation Heterosexual (fin ding) [facility] Medical Equipment Procedure Code Equipment Code [...] 04/13/2023 9:24 AM EDTTelephone Encounter - Roxanne Gregory - 02/16/2023 8:30 AM EDTPatient Vaishnavi Mazariegos - 02/13/2023 2:20 PM EDT Note Date & Type Note Facility 09-09-2024 [facility] Medical Records Department [address] [place] [address] History Physical Exam 09/09/24 1133 MR#: [id number] Acct: [id number] Name: JOANNE STALLWORTH Rep #: [id number] : 1975 49 From: Marino Trotter DO PCP: Dr. Rogers Bellamy MD Status:[facility] Location: [facility] HPI - General General Date of Admission: 09/09/24 Date of Service: 09/09/24 Chief Complaint: Screening colon HPI Narrative JOANNE STALLWORTH, is a 49 F who presents today for a screening colonoscopy. 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 She is not having any medical problems at this time. [facility] Medical History Wears glasses Depression Anxiety [...] Flushing Verified 12 (more content not included)... [facility] 06-26-2023 Note HNO ID: [id number] Author: Froilan Henao, DO Service: ? Author [...] due to remote insult/minimal chronic microvascular change. Plastics Scientist: CHAPARRO Transcribe Date/Time: Aug 22 2022 6:26P Dictated by : JO KATHLEEN MD This examination was interpreted and the report reviewed and electronically signed by: JO KATHLEEN MD on Aug 22 2022 6:44PM EST Results-Findings * * *Final Report* * * DATE OF EXAM: Aug 22 2022 4:42PM [facility] 0294 - MRI BRAIN WO IVCON / [...] Role Function-Preventive T (more content not included)... [facility] 05-02-2023 Note HNO ID: [id number] Author: Sadie Ramos MD Service: ? Author Type: Physician Type: Progress Notes Filed: 05/02/2023 3:09 PM Note Text: Neurology Return, [facility], virtual Patient's clinic evaluation was scheduled as a virtual visit using [employer] platform. I have communicated my name and active licensure. The patient's identity and physical location were verified at the time of this visit. Either the patient or their legal territory sales representative has been informed of the risks [...] please rate ho (more content not included)... [facility] 04-13-2023 Note HNO ID: [id number] Author: Tad Andersen, PhD Service: ? 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 This neuropsychological assessment is part of a multidisciplinary evaluation conducted in the [facility]. 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 She reports stress related to management [...] high average. Processing speed on a digit-symbol field artillery targeting technician task was average. Speeded color naming was average, and speeded word reading was average. Performance on a sustained attention task showed poor vigilance and inattentiveness. Executive functioning: Mental flexibility and visuomotor set shifting was high average. Verbal response inhibition was extremely low, and the same task with a set switching component was average. Qualitatively, the molded goods embossing press operator observed the patient to slow down [...] normal limits Visuospati (more content not included)... 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 This neuropsychological assessment is part of a multidisciplinary evaluation conducted in the [facility]. 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 She reports stress related to management [...] high average. Processing speed on a digit-symbol field artillery targeting technician task was average. Speeded color naming was average, and speeded word reading was average. Performance on a sustained attention task showed poor vigilance and inattentiveness. Executive functioning: Mental flexibility and visuomotor set shifting was high average. Verbal response inhibition was extremely low, and the same task with a set switching component was average. Qualitatively, the molded goods embossing press operator observed the patient to slow down [...] or workers' compensation evaluation. Tad Andersen, Ph.D., [facility]- Board Certified in Clinical Neuropsychology Neurobehavioral status exam/clinical interview by neuropsychologist = 1 hour Neuropsychological evaluation services by neuropsychologist = 2 hours Neuropsychological test administration/scoring by molded goods embossing press operator = 3 hours documented in this encounter [facility] 02-16-2023 Miscellaneous Notes Summary: appointments Lvm for patient to call so we can get her scheduled for a report visit with Dr Ramos documented in this encounter [facility] 02-13-2023 Instructions Sadie Ramos MD - 02/13/2023 5:20 PM EDT Recommend: Sleep behavioral medicine for insomnia management Follow up with her sleep provider to ensure adequate treatment of sleep apnea Optimal behavioral health management for stress, defer to her psychiatrist for potential therapy Neuropsychology testing for cognitive baseline Get B12 level Return after neuropsychology testing Please call [phone] for scheduling documented in this encounter [facility] 02-13-2023 Nurse Note Joanne Stallworth is a 47 year old year old right handed woman Accompanied by: mother. 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 What would you like to accomplish with this visit today? Figure out why my brain feels like a sieve, like a strainer sometime. Vital Signs: BP 126/71 Pulse 77 Wt 131.1 kg (289 lb) LMP 04/23/2015 BMI 40.31 kg/m documented in this encounter [facility] 02-13-2023 History of Present illness Narrative Images from the original note were not included. NEUROLOGY CONSULTATION, [facility] REASON FOR CONSULTATION: Cognitive concerns Consultation requested by Froilan Henao for an opinion regarding Joanne Stallworth. 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 She did not lose consciousness. Serological [...] problems. [facility] Cognitive Assessment (MoCA) COGNITIVE TESTING: [place] cognitive assessment test version 7.1 was . [...] level Return after neuropsychology testing Please call [phone] for scheduling ADMINISTRATIVE BILLING I spent a total of 60 minutes on the date of the service which included preparing to see the patient, [id number] patient care, completing clinical documentation, obtaining and/or reviewing separately obtained history, performing a medically appropriate examination, counseling and educating the patient/family/caregiver, ordering medications, tests, or procedures, independently interpreting results (not separately reported), and communicating results to the patient/family/caregiver. This note was partially generated using voice recognition technology system, any errors noted are due to the technology and are unintentional. cc: Froilan Henao [address] [facility] [address] documented in this encounter [facility] 02-13-2023 Note HNO ID: [id number] Author: Sadie Ramos MD Service: ? Author Type: Physician Type: Progress Notes Filed: 02/13/2023 5:22 PM Note Text: NEUROLOGY CONSULTATION, [facility] REASON FOR CONSULTATION: Cognitive concerns Consultation requested by Froilan Henao for an opinion regarding Joanne Stallworth. 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 [facility] 10-31-2022 Miscellaneous Notes prior authorization submitted via cover meds Joanne Stallworth Diamond: [id number] - PA Status-Sent to [facility]-Ubrelvy 100MG tablets Form-[facility] Commercial Electronic PA Form (2016 NMPDP) Patient sent [employer] message on 10/28 asking for status. Prior Authorization for Medications Requested by ([place], Pharmacy, Patient Call, Fax) : [employer] Pharmacy Name: [facility] Phone # : [phone] Name of Medication : Ubrelvy Dose : 100 mg tablets If renewal, auth date expiration: NA Prescribing Provider: Last OV: 08/20/2022 with Henao Insurance Provider : Pan / ALDA Ash Is insurance card scanned in, including Rx info? Yes Rx ID number: [id number] Rx BIN: [id number] Rx PCN: [id number] Rx Grp: [id number] Insurance Phone : CoverMyMeds Diamond: NA E-PA? Yes documented in this encounter [facility] 08-22-2022 History of Present illness Narrative [...] PM documented in this encounter [facility] 08-20-2022 History of Present illness Narrative [...] (Maxalt) Sumatriptan (Imitrex, Sumavel) Analgesic Hydrocodone/Acetaminophen (Vicodin, [place]) Ketorolac (Toradol) Etodolac [facility] [...] Dose Reason for Discontinuation Analgesic Hydrocodone/Acetaminophen (Vicodin, [place]) Ketorolac (Toradol) Etodolac Anti-Convulsant Gabapentin (Neurontin) Zonisamide [...] Ibuprofen (Advil, Motrin) Naproxen sodium (Aleve) Froilan Henao DO [facility] [place] Department [facility] [address] [place] [address] Level of service: Est level 3 (20-29 min). Time spent 25 min on the day of service, which included preparing to see the patient, [id number] patient care, completing clinical documentation, obtaining and/or reviewing separately obtained history, counseling and educating the patient/family/caregiver, and ordering medications, tests, or procedures. Medical Decision Making: Medical Decision Making Level: 1 - N/A cc: Tico Walker MD [address] [place], [place] [id number] documented in this encounter [facility] 01-31-2022 Miscellaneous Notes Received approval via fax from [place] for Nurtec. Effective 01/30/2022 - 01/30/2023 Reference # [id number] Uploaded to chart via [employer]. Completed PA over covermymds: If [email or web address] has not replied to your request within 24 hours please contact [email or web address] at [phone]. Joanne julio Stallworth (Diamond: [id number]) Rx #: [id number] Nurtec 75MG dispersible tablets Form [facility] Commercial Electronic PA Form (2016 [facility]) Wait for Determination, Cira Pres[place] Images from the original note were not included. Received faxed notification from [facility] stating PA needed on Nurtec 75mg. documented in this encounter [facility] 01-14-2022 History of Past i llness Narrative Problem Noted Date Diagnosed Date Resolved Date Chronic tension-type headache, intractable 01/14/2022 06/26/2023 Chronic daily headache 01/14/202206/26 Migraine without aura 01/16/20142014 documented as of this encounter (statuses as of 07/19/2023) [facility] History of Present illness Narrative* Froilan Henao DO - 01/14/2022 1:00 PM EDT Headache [...] (Maxalt) Sumatriptan (Imitrex, Sumavel) Analgesic Hydrocodone/Acetaminophen (Vicodin, [place]) Ketorolac (Toradol) Etodolac ---> Preventive Treatment: -Cymbalta [...] Dose Reason for Discontinuation Analgesic Hydrocodone/Acetaminophen (Vicodin, [place]) Ketorolac (Toradol) Etodolac Anti-Convulsant Gabapentin (Neurontin) Zonisamide (Zonegram) Anti-Depressant and Antipsychotic Duloxetine (Cymbalta) Fluoxetine (Prozac) Mirtazapine (Remeron) Ziprasidone (Geodon) Nebivolol, Olmesartan Anti-Migraine Rizatriptan (Maxalt) Sumatriptan (Imitrex, Sumavel) Blood Pressure Lisinopril (Zestril) Losartan (Cozaar) Metoprolol (Lopressor,Toprol XL) HCTZ, Benicar Sleep Aids Trazodone (Desyrel) Zolpidem (Ambien) Supplements CoQ10 Magnesium Riboflavin Froilan Henao DO [facility] [place] Department [facility] [address] [place] [address] Level of service: Est level 3 (20-29 min). Time spent 20 min on the day of service, which included preparing to see the patient, [id number] patient care, completing clinical documentation, obtaining and/or reviewing separately obtained history, counseling and educating the patient/family/caregiver and ordering medications, tests, or procedures. Medical Decision Making cc: Tico Walker MD [address] [place] [address] [facility] of Past illness Narrative* Problem Noted Date Resolved Date Migraine without aura 01/16/2014 04/11/2015 documented as of this encounter (statuses as of 01/14/2022) [facility] History of Past illness Narrative* Problem Noted Date Resolved Date Migraine without aura 01/16/2014 04/11/2015 documented as of this encounter (statuses as of 01/31/2022) [facility] History of Past illness Narrative* Problem Noted Date Resolved Date Migraine without aura 01/16/2014 04/11/2015 documented as of this encounter (statuses as of 08/20/2022) [facility] History of Past illness Narrative* Problem Noted Date Resolved Date Migraine without aura 01/16/2014 04/11/2015 documented as of this encounter (statuses as of 09/03/2022) [facility] History of Past illness Narrative* Problem Noted Date Resolved Date Migraine without aura 01/16/2014 04/11/2015 documented as of this encounter (statuses as of 09/22/2022) [facility] History of Past illness Narrative* Problem Noted Date Resolved Date Migraine without aura 01/16/2014 04/11/2015 documented as of this encounter (statuses as of 10/31/2022) [facility] History of Past illness Narrative* Problem Noted Date Resolved Date Migraine without aura 01/16/2014 04/11/2015 documented as of this encounter (statuses as of 02/14/2023) [facility] History of Past illness Narrative* Problem Noted Date Resolved Date Migraine without aura 01/16/2014 04/11/2015 documented as of this encounter (statuses as of 02/16/2023) [facility] History of Past illness Narrative* Problem Noted Date Diagnosed Date Resolved Date Migraine without aura 01/16/20142014 documented as of this encounter (statuses as of 04/14/2023) [facility] History of Past illness Narrative* Problem Noted Date Diagnosed Date Resolved Date Migraine without aura 01/16/20142014 documented as of this encounter (statuses as of 04/14/2023) [facility] Migraine without aura and [...] headache [facility] Diagnosis Onset Date Resolution Status Chronic diarrhea chronic Fatty liver disease, nonalcoholic chronic Hypertension chronic Morbid obesity chronic Type 2 diabetes mellitus [facility] GERD (gastroesophageal reflux disease) acute Chronic diarrhea chronic Fatty liver disease, nonalcoholic chronic Menstrual irregularity acute Hypertension chronic Morbid obesity chronic Type 2 diabetes mellitus [facility] Work Phone: Evaluation note* Diagnosis Onset Date Resolution Status COVID-19 acute Fatty liver disease, nonalcoholic chronic Liver fibrosis chronic Flu vaccine need acute Anxiety and depression chron ic Hypertension chronic Morbid obesity chronic Type 2 diabetes mellitus [facility] Work Phone: Evaluation note* Diagnosis Onset Date Resolution Status Fatty liver disease, nonalcoholic chronic Liver fibrosis chronic Flu vaccine need acute Anxiety and depression chron ic Hypertension chronic Morbid obesity chronic Type 2 diabetes mellitus [facility] Work Phone: Evaluation note* Diagnosis Migraine [...] loss [facility] Diagnosis Abnormal brain MRI- Primary Nonspecific (abnormal) findings on radiological and other examination of skull and head Memory impairment Memory loss Cognitive complaints Other signs and symptoms involving cognition [facility] Memory impairment- Primary Memory loss Cognitive complaints Other signs and symptoms involving cognition Psychophysiologic insomnia Persistent disorder of initiating or maintaining sleep Stress at work Adverse effects of work environment Obstructive sleep apnea Obstructive sleep apnea (adult) (pediatric) [facility] Diagnosis Cognitive disorder- Primary Unspecified persistent mental disorders due to conditions classified elsewhere Migraine aura without headache Migraine with aura, without mention of intractable migraine without mention of status migrainosus ELVIS (obstructive sleep apnea) Obstructive sleep apnea (adult) (pediatric) [facility] Diagnosis Cognitive impairment, mild, so stated Mild cognitive impairment, so stated Memory impairment Memory loss documented in this encounter [facility] Chief Complaint and Reason for Visit [...] Yes November 27, 2021 5:40pm Power of Slitter Scorer Yes November 27 5:40pm Advance Directive Response Recorded Date/ Time Living Will Yes November 27, 2021 4:40pm Power of Slitter Scorer Yes November 27 4:40pm Reason for Referral Specialty Diagnoses / Procedures Referred By Narcisa villanueva Referred To Contact MR IMAGING Diagnoses Cognitive impairment, mild, so stated Memory impairment Procedures MRI BRAIN WO IVCON MRI BRAIN BRAIN STEM W/O CONTRAST MATERIAL Froilan Henao, DO [address] [place] [address] Mr Imaging Referral ID Status Reason Start Date Expiration Date Visits Requested Visits Authorized [id number] Pending Review Auto-Generat ed Referral 08/20/2022 09/19/2023 1 1 Specialty Diagnoses / Procedures Referred By Narcisa villanueva Referred To Contact Neurology Diagnoses Abnormal brain MRI Memory impairment Cognitive complaints Procedures CONSULT TO NEUROLOGY OFFICE/OUTPATIENT [facility] 60-74 MINUTES Froilan Henao, DO [address] [place] [address] Referral ID Status Reason Start Date Expiration Date Visits Requested Visits Authorized [id number] Authorized PCP Requested Referral 09/21/2022 09/21/2023 1 1 Specialty Diagnoses / Procedures Referred By Contac t Referred To Contact MR IMAGING Diagnoses Cognitive impairment, mild, so stated Memory impairment Procedures MRI BRAIN WO IVCON MRI BRAIN BRAIN STEM W/O CONTRAST MATERIAL Froilan Henao DO [address] [place] [address] [place] [address] Referral ID Status Reason Start Date Expiration Date V isits Requested Visits Authorized [id number] Closed Auto-Generate d Referral 08/21/2022 09/13/2022 1 1 Summary Purpose Additional Source Comments Source Comments (unrecognize d section and content) In the event this informatio n is protected by the Federal Confidentiality of Alcohol and Drug Abuse Patient Records regulations: The Federal rules restrict any use of the information to criminally investigate or prosecute any alcohol or drug abuse patient.[facility] the event this information is protected by the Federal Confidentiality of Alcohol and Drug Abuse Patient Records regulations: The Federal rules restrict any use of the information to criminally investigate or prosecute any alcohol or drug abuse patient.[facility] the event this information is protected by the Federal Confidentiality of Alcohol and Drug Abuse Patient Records regulations: The Federal rules restrict any use of the information to criminally investigate or prosecute any alcohol or drug abuse patient.[facility] the event this information is protected by the Federal Confidentiality of Alcohol and Drug Abuse Patient Records regulations: The Federal rules restrict any use of the information to criminally investigate or prosecute any alcohol or drug abuse patient.[facility] the event this information is protected by the Federal Confidentiality of Alcohol and Drug Abuse Patient Records regulations: The Federal rules restrict any use of the information to criminally investigate or prosecute any alcohol or drug abuse patient.[facility] the event this information is protected by the Federal Confidentiality of Alcohol and Drug Abuse Patient Records regulations: The Federal rules restrict any use of the information to criminally investigate or prosecute any alcohol or drug abuse patient.[facility] the event this information is protected by the Federal Confidentiality of Alcohol and Drug Abuse Patient Records regulations: The Federal rules restrict any use of the information to criminally investigate or prosecute any alcohol or drug abuse patient.[facility] Hospital[facility] the event this information is protected by the Federal Confidentiality of Alcohol and Drug Abuse Patient Records regulations: The Federal rules restrict any use of the information to criminally investigate or prosecute any alcohol or drug abuse patient.[facility] the event this information is protected by the Federal Confidentiality of Alcohol and Drug Abuse Patient Records regulations: The Federal rules restrict any use of the information to criminally investigate or prosecute any alcohol or drug abuse patient.[facility] the event this information is protected by the Federal Confidentiality of Alcohol and Drug Abuse Patient Records regulations: The Federal rules restrict any use of the information to criminally investigate or prosecute any alcohol or drug abuse patient.[facility] the event this information is protected by the Federal Confidentiality of Alcohol and Drug Abuse Patient Records regulations: The Federal rules restrict any use of the information to criminally investigate or prosecute any alcohol or drug abuse patient.[facility] Reason for Visit (unrecogniz ed section and content) Reason Comments Migraine Reason Comments Insurance Authorization Nurtec 75mg 05/13 Reason Comments Migraine Reason Comments Insurance Authorization Ubrelvy Reason Comments Consult Specialty Diagnoses / Procedures Referred By Contac t Referred To Contact Neurology Diagnoses Abnormal brain MRI Memory impairment Cognitive complaints Procedures CONSULT TO NEUROLOGY OFFICE/OUTPATIENT [facility] 60-74 MINUTES Froilan Henao, DO [address] [place] [id number] Referral ID Status Reason Start Date Expiration Date V isits Requested Visits Authorized [id number] Closed PCP Requested Referral 09/21/2022 09/21/2023 1 1 Reason Comments Appointment Lvm for patient to c all so we can get her scheduled for a report visit with Dr Ramos Specialty Diagnoses / Procedures Referred By Contterry t Referred To Contact MR IMAGING Diagnoses Cognitive impairment, mild, so stated Memory impairment Procedures MRI BRAIN WO IVCON MRI BRAIN BRAIN STEM W/O CONTRAST MATERIAL Froilan Henao, [address] [id number] Mr Imaging [place] [address] Referral ID Status Reason Start Date Expiration Date V isits Requested Visits Authorized [id number] Closed Auto-Generate d Referral 08/21/2022 09/13/2022 1 1 Care Teams (unrecognized sec tion and content) Learning Disabilities Resource Teacher Relationship Specialty Start Date End Date Tico Walker MD PCP - General Family Practice 12/25/11 Learning Disabilities Resource Teacher Relationship Specialty Start Date End Date Tico Walker MD PCP - General Family Practice 12/25/11 Learning Disabilities Resource Teacher Relationship Specialty Start Date End Date Tico Wlaker MD PCP - General Family Medicine 12/25/11 Learning Disabilities Resource Teacher Relationship Specialty Start Date End Date Tico Walker MD PCP - General Family Medicine 12/25/11 Learning Disabilities Resource Teacher Relationship Specialty Start Date End Date Tico Walker MD PCP - General Family Medicine 12/25/11 Learning Disabilities Resource Teacher Relationship Specialty Start Date End Date Tico Walker MD PCP - General Family Medicine 12/25/11 10/09/22 Goals (unrecognized section and content) Goals may be documented in a n alternate sectionGoals may be documented in an alternate sectionGoals may be documented in an alternate sectionGoals may be documented in an alternate section INFORMATION SOURCE (unrecogn ized section and content) DATE CREATED AUTHOR 02/14/2024 [facility] DATE CREATED AUTHOR AUTHOR'S OSORIOIZ ANTONINOION 07/26/2025 [facility] FOR RECORDS PERTAINING TO PATIENTS WHO [...] BE BASED ON THE PRIMARY CLINICAL RECORDS. [employer] provides no warranty or guarantee of the accuracy or completeness of information in this document.
[2025-08-05 10:25] LABS: AST(SGOT) 20 U/L (<=31); Alanine Aminotransfer ALT/SGPT 19 U/L (<=34); Albumin, Serum 4.4 g/dL (3.5-5.0); Alkaline Phosphatase 51 U/L (35-104); Anion Gap 14 (5-15); BUN 16 mg/dL (4-19); BUN/Creat Ratio 23.4 RATIO (10-20); Calcium,Total 9.6 mg/dL (7.6-11.0); Carbon Dioxide 25.0 mmol/L (21.0-32.0); Chloride 101 mmol/L (98-108); Cholesterol 125 mg/dL (<=200); Globulin 3.1 g/dL (2.2-4.2); Glucose 186 mg/dL (70-99); Low Density Lipoprotein Calc. 54 mg/dL; Potassium 4.1 mmol/L (3.3-5.1); Triglycerides 181 mg/dL; Very Low Density Lipoprotein 36 mg/dL (5-40); cholesterol:hdl ratio screen 3.03
== END | disposition home or self-care (01) ==
LOC: LAB 09:20
PROVIDERS: PCP Internal Medicine; Referring Provider Nurse Practitioner Adult Health; Visit Provider Nurse Practitioner Adult Health
DX: E11.65 Type 2 diabetes mellitus with hyperglycemia (principal); E78.2 Mixed hyperlipidemia
CPT/HCPCS: 36415; 80053; 80061; 83036

== ENCOUNTER → 2025-08-11 | Outpatient (CLI) | payer OTHER, SELFPAY ==
--- OUTSIDE RECORDS SUMMARY | 2025-08-11 09:51 | XMS RPT_ITS | CCD ---
Author Organization [facility] CliniSymi Care Team Providers Care Executive Chairman Name Role Phone Tico Walker MD Primary [...] Provider Tico Walker MD Primary Care Provider Unavailable [...] sources) Azithromycin; Translations: [AZITHROMYCIN] Drug Allergy 6 [facility] Work Phone: (16 sources) diazePAM; Translations: [DIAZEPAM] Drug Allergy 2 Other: See Comments [facility] (16 sources) Lisinopril; Translations: [LISINOPRIL] Drug Allergy 9 Other [facility] Work Phone: (16 sources) predniSONE; Translations: [PREDNISONE] Drug Allergy 2 Other: See Comments [facility] (1 source) paper tape Allergy to substance 2 blister [facility] Work Phone: (4 sources) water proof tape Allergy to substance 2 [facility] Work Phone: (4 sources) Adhesive Tape; Translations: [adhesive tape] Allergy to substance 2 Other [facility] (1 source) Adhesive agent Drug allergy (disorder) 5 [facility] (1 source) Azithromycin Drug Allergy 5 [facility] (1 source) diazePAM Drug Allergy 5 [facility] (1 source) Lisinopril Drug Allergy 5 [facility] (1 source) predniSONE Drug Allergy 5 [facility] Medications Current Medications Medication Drug [...] 0 02/12/2009 Active take 1 capsule by [facility] every twenty-four hours as needed DULoxetine (CYMBALTA) [...] 03, 2021 2:53pm take 2 tablets by [facility] twice daily metFORMIN (GLUCOPHAGE) 500 mg tablet Take 500 mg by mouth twice daily. 2 tabs twice daily 0 Active take 1 tablet by [facility] four times daily metFORMIN (GLUCOPHAGE) 500 [...] Take 25 mg by mouth twice daily. [place]-3 Fatty Acids (Fish Oil Concentrate) 1,000 mg capsule (4 sources) Start: 10-18-2018 take 1 capsule by mouth once daily [place]-3 Fatty Acids (Fish Oil Concentrate) 1,000 mg capsule Active 1000 MG PO DAILY October 18, 2018 12:00am Start: 10-18-2018 take 1 capsule by mo ut once daily [place]-3 Fatty Acids (Fish Oil Concentrate) 1,000 mg [...] BEDTIME October 18, 2018 1:00am vitamin a 13152 unt oral tablet (4 sources) Vitamin A Start: 10-18-2018 take 70076 [IU] by mouth once daily Vitamin A Palmitate Active 92329 UNIT PO DAILY October 18, 2018 12:00am [...] Start: 07-10-2022 take 1 capsule by mo [facility] twice daily Celecoxib (Celebrex) 200 mg capsule Active 200 MG PO TWICE A DAY July 09, 2022 11:00pm Comment on above: TAKE 1 CAPSULE BY MO [facility] TWICE A DAY NEEDED FOR [...] take 0.25 mg by mouth at bedti or Ropinirole Active 0.25 MG PO AT BEDTIME [...] Elastographyo n 07-01-2025 ABD Limited w/ Elastography [facility] [address] [place], [place] [address] ABD Limited w/ Elastography MR#: [id number] Acct: [id number] Name: JOANNE STALLWORTH Rep #: [id number] : 1975 F 49 From: Adán franklin MD PCP: Dr. Rogers Bellamy MD Status: REG CLI Study: ABD Limited w/ Elastography Date of Exam: 06/14 05/08 Exam# [id number] Ordering Dr: Marino Trotter DO PROCEDURE: ABD [...] measurement may be in question. Reading Location: [place] [address] CC: Dr. Rogers Bellamy MD; Marino Trotter DO Sheeter Helper: Signed Normal [facility] MR/BMS.BPon 06-20-2025 MR/BMS.BP [facility] [address] [facility], [address] [place] [address] OFFICE VISIT Date of Service: 06/20/25 MR#: [id number] Acct: [id number] Name: JOANNE STALLWORTH Rep #: [id number] : 1975 Provider: Dr. Maciel Shabazz se, DO Age/Sex: 49/F Location: [facility] Status: Signed Intake Vital Signs 04/17/25 15:43 [...] 06/20/25 06/20/25 History subcutaneous pen injector (Osman) [facility] Medical History (Updated 05/22/25 @ 09:42 by [...] of br (more content not included)... Normal [facility] Gastroenterology Visit Repor ton 06-02-2025 Gastroenterology Visit Report [facility] [address] [address] OFFICE VISIT Date of Service: 06/02/25 MR#: [id number] Acct: [id number] Name: JOANNE STALLWORTH Rep #: [id number] : 1975 Provider: Marino Trotter DO Age/Sex: 49/F Location: [facility] Status: Signed Intake Vital Signs 12/05/24 09:52 [...] DAILY #90 TABLETS 06/02/25 Rx tablet,extended release [facility] Medical History (Updated 05/22/25 @ 09:42 by [...] Anemia D (more content not included)... Normal [facility] Internal Medicine Office Vis iton 05-22-2025 Internal Medicine Office Visit [facility] [address] [address] [place] [address] OFFICE VISIT Date of Service: 05/22/25 MR#: [id number] Acct: [id number] Name: JOANNE STALLWORTH Rep #: [id number] : 1975 Provider: Dr. Rogers draper MD Age/Sex: 49/F Location: [facility] Status: Signed Intake Vital Signs 01/18/25 09:52 [...] mg PO QDAY 05/22/25 05/22/25 His tory [facility] Medical History (Updated 05/22/25 @ 09:42 by [...] 2 di (more content not included)... Normal [facility] AST(SGOT)on 05-13-2025 AST [Catalytic activity/Vol] 19 U/L Normal <=31 [facility] Comment on above: Performed By: #### L 501.4100, L501.9985, L501.4405, L500.2500, L502.0250, L500.4100 ####[facility] [address] [place], [address] Alanine Aminotransferas (SGP T)on 05-13-2025 ALT [Catalytic activity/Vol] 19 U/L Normal <=34 [facility] Comment on above: Performed By: #### L 501.4100, L501.9985, L501.4405, L500.2500, L502.0250, L500.4100 ####[facility] [address] [place], [address] Basic Metabolic Profile (BMP )on 05-13-2025 BUN/CRE 22.3 RATIO High 10-20 [facility] Comment on above: Performed By: #### L 501.4100, L501.9985, L501.4405, L500.2500, L502.0250, L500.4100 ####[facility] [address] [place], [address] Calcium [Mass/Vol] 9.5 mg/dL Normal 7.6-11.0 [facility] Comment on above: Performed By: #### L 501.4100, L501.9985, L501.4405, L500.2500, L502.0250, L500.4100 ####[facility] [address] [place], [address] Chloride [Moles/Vol] 99 mmol/L Normal 98-108 [facility] Comment on above: Performed By: #### L 501.4100, L501.9985, L501.4405, L500.2500, L502.0250, L500.4100 ####[facility] [address] [place], [address] CO2 [Moles/Vol] 24.5 mmol/L Normal 21.0-32.0 [facility] Comment on above: Performed By: #### L 501.4100, L501.9985, L501.4405, L500.2500, L502.0250, L500.4100 ####[facility] [address] [place], [address] Creatinine [Mass/Vol] 0.61 mg/dL Low 0.70-1.20 [facility] Comment on above: Performed By: #### L 501.4100, L501.9985, L501.4405, L500.2500, L502.0250, L500.4100 ####[facility] [address] [place], [address] GAP 15 Normal 5-15 [facility] Comment on above: Performed By: #### L 501.4100, L501.9985, L501.4405, L500.2500, L502.0250, L500.4100 ####[facility] [address] [place], [address] GFR/1.73 sq M.predicted among non-blacks MDRD (S/P/Bld) [Vol rate/Area] 111 mL/min/{1.73_m2} Normal >60 [facility] Comment on above: Result Comment: mL/m in/1.73m2 CKD-EPI Creatinine Equation (2020) Performed By: #### L 501.4100, L501.9985, L501.4405, L500.2500, L502.0250, L500.4100 ####[facility] [address] [place], [address] Glucose [Mass/Vol] 157 mg/dL High 70-99 [facility] Comment on above: Performed By: #### L 501.4100, L501.9985, L501.4405, L500.2500, L502.0250, L500.4100 ####[facility] [address] [place], [address] Potassium [Moles/Vol] 4.0 mmol/L Normal 3.3-5.1 [facility] Comment on above: Performed By: #### L 501.4100, L501.9985, L501.4405, L500.2500, L502.0250, L500.4100 ####[facility] [address] [place], [address] Sodium [Moles/Vol] 138 mmol/L Normal 133-145 [facility] Comment on above: Performed By: #### L 501.4100, L501.9985, L501.4405, L500.2500, L502.0250, L500.4100 ####[facility] [address] [place], [address] Urea nitrogen [Mass/Vol] 14 mg/dL Normal 4-19 [facility] Comment on above: Performed By: #### L 501.4100, L501.9985, L501.4405, L500.2500, L502.0250, L500.4100 ####[facility] [address] [place], [address] Hemoglobin A1con 05-13-2025 HbA1c (Bld) [Mass fraction] 6.7 % High <=5.6 [facility] Comment on above: Result Comment: Norm al < 5.7 % Prediabetic 5.7 - 6.4 % Diabetic >or= 6.5 % Please note range changes. Performed By: #### L 501.4100, L501.9985, L501.4405, L500.2500, L502.0250, L500.4100 ####[facility] [address] [place], [address] Lipid Profileon 05-13-2025 CHOL:HDL 4.19 Normal [facility] Comment on above: Performed By: #### L 501.4100, L501.9985, L501.4405, L500.2500, L502.0250, L500.4100 ####[facility] [address] [place], [address] Cholesterol [Mass/Vol] 179 mg/dL Normal <=200 [facility] Comment on above: Result Comment: Chol esterol level, Desirable <200 mg/dL Borderline high cholesterol 200-239 mg/dL High cholesterol >=240 mg/dL Recommendations of the NCEP Adult Treatment Panel for the following risk-cutoff thresholds for the [place] population. Performed By: #### L 501.4100, L501.9985, L501.4405, L500.2500, L502.0250, L500.4100 ####[facility] [address], [address] Cholesterol in HDL [Mass/Vol] 43 mg/dL Normal [facility] Comment on above: Result Comment: Ena onal Cholesterol Education Program (NCEP) guidelines: <40 mg/dL: Low HDL-cholesterol (major risk factor for CHD) >= 60 mg/dL: High HDL-cholesterol (negative risk factor for CHD) HDL-cholesterol is affected by a number of factors, e.g. smoking, exercise, hormones, sex and age. Performed By: #### L 501.4100, L501.9985, L501.4405, L500.2500, L502.0250, L500.4100 ####[facility] [address] [place], [address] Cholesterol in LDL [Mass/Vol] 80 mg/dL Normal [facility] Comment on above: Result Comment: Bord iprgqx=594-774 mg/dL Higher Kvkz=959 mg/dL or greater Friedwald Equation for LDL-C Performed By: #### L 501.4100, L501.9985, L501.4405, L500.2500, L502.0250, L500.4100 ####[facility] [address] [place], [address] Cholesterol in VLDL [Mass/Vol] 57 mg/dL High 5-40 [facility] Comment on above: Performed By: #### L 501.4100, L501.9985, L501.4405, L500.2500, L502.0250, L500.4100 ####[facility] [address] [place], [address] Triglyceride [Mass/Vol] 283 mg/dL High [facility] Comment on above: Result Comment: The drugs N-Acetylcysteine and Metamizole may falsely depress this assay. Normal range: <150 mg/dL Borderline High: 150-199 mg/dL High: 200-499 mg/dL Very High: >500 mg/dL Performed By: #### L 501.4100, L501.9985, L501.4405, L500.2500, L502.0250, L500.4100 ####[facility] [address] [place], [address] Microalb:Creat Ratio,Random URon 05-13-2025 Creatinine [Mass/Vol] 79.00 mg/dL Normal 28.00-217.00 [facility] Comment on above: Performed By: #### L 501.4100, L501.9985, L501.4405, L500.2500, L502.0250, L500.4100 ####[facility] [address] [place], [place], [address] MALB:CREAT UNABLE TO CALCULATE Normal <30 mg/g CRE [facility] Comment on above: Performed By: #### L 501.4100, L501.9985, L501.4405, L500.2500, L502.0250, L500.4100 ####[facility] [address] [place], [place], [address] MICROALBUMIN,UR < 12.0 Normal <20 mg/L [facility] Comment on above: Performed By: #### L 501.4100, L501.9985, L501.4405, L500.2500, L502.0250, L500.4100 ####[facility] [address] [place], [address] MR/BMS.BPon 04-17-2025 MR/BMS.BP [address], [address] [place] [address] OFFICE VISIT Date of Service: 04/17/25 MR#: [id number] Acct: [id number] Name: BASIMJOANNE Julio Rep #: [id number] : 1975 Provider: Dr. Maciel Shabazz se, DO Age/Sex: 49/F Location: [facility] Status: Signed Intake Vital Signs 02/13/25 10:35 [...] 04/17/25 04/17/25 History subcutaneous pen injector (Mounjaro) [facility] Medical History Hypertriglyceridemia Generalized anxiety disorder Major [...] apnea Histor (more content not included)... Normal [facility] PAP IG HPV APTIMA 16/18,45on 04-17-2025 ADEQ Comment Normal . [facility] Comment on above: Order Comment: Speci men Comment: [id number] Specimen Comment: No. of containers..01 ThinPrep Vial Result Comment: Sati sfactory for evaluation. No endocervical component is identified. Performed By: #### L 7400.0280 #### [facility] [address] [place], [place], [address] COMM . Normal . [facility] Comment on above: Order Comment: Diony lacy Comment: [id number] Specimen Comment: No. of containers..01 ThinPrep Vial Performed By: #### L 7400.0280 #### [facility] [address] [place], [place], [address] COMMENT Comment Normal . [facility] Comment on above: Order Comment: Speci men Comment: [id number] Specimen Comment: No. of containers..01 ThinPrep Vial Result Comment: This liquid based ThinPrep(R) pap test was screened with the use of an image guided system. Performed By: #### L 7400.0280 #### [facility] [address] [place], [place], [address] DIAG Comment Normal . [facility] Comment on above: Order Comment: Speci men Comment: [id number] Specimen Comment: No. of containers..01 ThinPrep Vial Result Comment: NEGA TIVE FOR INTRAEPITHELIAL LESION OR MALIGNANCY. Performed By: #### L 7400.0280 #### [facility] [address] [place], [address] HPV APTIMA, HR Negative Normal Negative [facility] Comment on above: Order Comment: Speci men Comment: [id number] Specimen Comment: No. of containers..01 ThinPrep Vial Result Comment: This nucleic acid amplification test detects fourteen high- risk HPV types (16,18,31,33,35,39,45,51,52,56,58,59,66,68) without differentiation. Performed By: #### L 7400.0280 #### [facility] [address] [place], [address] HPV Luba Rfx Comment Normal . [facility] Comment on above: Order Comment: Speci men Comment: [id number] Specimen Comment: No. of containers..01 ThinPrep Vial Result Comment: Crit eria not met, HPV Genotype not performed. Performed at: - [facility] [id number] Ring Facer: Vanessa Morris MD, Phone: [phone] Performed at: = - [facility] [id number] Ring Facer: Vanessa Morris MD, Phone: [phone] Performed By: #### L 7400.0280 #### [facility] [address] [place], [address] PAPSMR Comment Normal . [facility] Comment on above: Order Comment: Speci men Comment: [id number] Specimen Comment: No. of containers..01 ThinPrep Vial Result Comment: The Pap smear is a screening test designed to aid in the detection of premalignant and malignant conditions of the uterine cervix. It is not a diagnostic procedure and should not be used as the sole means of detecting cervical cancer. Both false-positive and false-negative reports do occur. Performed By: #### L 7400.0280 #### [facility] [address] [place], [place], [address] PERFORM Comment Normal . [facility] Comment on above: Order Comment: Speci men Comment: [id number] Specimen Comment: No. of containers..01 ThinPrep Vial Result Comment: Paz Rooney, Risk Consultant (ASCP) Performed By: #### L 7400.0280 #### [facility] [address] 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 Normal [facility] AST(SGOT)on 02-27-2025 AST [Catalytic activity/Vol] 22 U/L Normal <=31 [facility] Comment on above: Performed By: #### L 501.4100, L501.9985, L500.4100, L501.9520, L501.4405, L500.2500 #### [facility] [address] [place], [address] Alanine Aminotransferas (SGP T)on 02-27-2025 ALT [Catalytic activity/Vol] 24 U/L Normal <=34 [facility] Comment on above: Performed By: #### L 501.4100, L501.9985, L500.4100, L501.9520, L501.4405, L500.2500 ####[facility] [address] [place], [address] Basic Metabolic Profile (BMP )on 02-27-2025 BUN/CRE 18.1 RATIO Normal 10-20 [facility] Comment on above: Performed By: #### L 501.4100, L501.9985, L500.4100, L501.9520, L501.4405, L500.2500 #### [facility] [address] [place], [address] Calcium [Mass/Vol] 9.7 mg/dL Normal 7.6-11.0 [facility] Comment on above: Performed By: #### L 501.4100, L501.9985, L500.4100, L501.9520, L501.4405, L500.2500 #### [facility] [address] [place], [address] Chloride [Moles/Vol] 94 mmol/L Low 98-108 [facility] Comment on above: Performed By: #### L 501.4100, L501.9985, L500.4100, L501.9520, L501.4405, L500.2500 #### [facility] [address] [place], [address] CO2 [Moles/Vol] 24.7 mmol/L Normal 21.0-32.0 [facility] Comment on above: Performed By: #### L 501.4100, L501.9985, L500.4100, L501.9520, L501.4405, L500.2500 #### [facility] [address] [place], [address] Creatinine [Mass/Vol] 0.65 mg/dL Low 0.70-1.20 [facility] Comment on above: Performed By: #### L 501.4100, L501.9985, L500.4100, L501.9520, L501.4405, L500.2500 #### [facility] [address] [place], [address] GAP 16 High 5-15 [facility] Comment on above: Performed By: #### L 501.4100, L501.9985, L500.4100, L501.9520, L501.4405, L500.2500 #### [facility] [address] [place], [address] GFR/1.73 sq M.predicted among non-blacks MDRD (S/P/Bld) [Vol rate/Area] 109 mL/min/{1.73_m2} Normal >60 [facility] Comment on above: Result Comment: mL/m in/1.73m2 CKD-EPI Creatinine Equation (2020) Performed By: #### L 501.4100, L501.9985, L500.4100, L501.9520, L501.4405, L500.2500 #### [facility] [address] [place], [address] Glucose [Mass/Vol] 236 mg/dL High 70-99 [facility] Comment on above: Performed By: #### L 501.4100, L501.9985, L500.4100, L501.9520, L501.4405, L500.2500 #### [facility] [address] [place], [address] Potassium [Moles/Vol] 4.1 mmol/L Normal 3.3-5.1 [facility] Comment on above: Performed By: #### L 501.4100, L501.9985, L500.4100, L501.9520, L501.4405, L500.2500 #### [facility] [address] [place], [address] Sodium [Moles/Vol] 134 mmol/L Normal 133-145 [facility] Comment on above: Performed By: #### L 501.4100, L501.9985, L500.4100, L501.9520, L501.4405, L500.2500 #### [facility] [address] [place], [address] Urea nitrogen [Mass/Vol] 12 mg/dL Normal 4-19 [facility] Comment on above: Performed By: #### L 501.4100, L501.9985, L500.4100, L501.9520, L501.4405, L500.2500 #### [facility] [address] [place], [address] Hemoglobin A1con 02-27-2025 HbA1c (Bld) [Mass fraction] 7.5 % High <=5.6 [facility] Comment on above: Result Comment: Norm al < 5.7 % Prediabetic 5.7 - 6.4 % Diabetic >or= 6.5 % Please note range changes. Performed By: #### L 501.4100, L501.9985, L500.4100, L501.9520, L501.4405, L500.2500 #### [facility] [address] [place], [address] Lipid Profileon 02-27-2025 CHOL:HDL 6.57 Normal [facility] Comment on above: Performed By: #### L 501.4100, L501.9985, L500.4100, L501.9520, L501.4405, L500.2500 #### [facility] [address] [place], [address] Cholesterol [Mass/Vol] 257 mg/dL High <=200 [facility] Comment on above: Result Comment: Chol esterol level, Desirable <200 mg/dL Borderline high cholesterol 200-239 mg/dL High cholesterol >=240 mg/dL Recommendations of the NCEP Adult Treatment Panel for the following risk-cutoff thresholds for the [place] population. Performed By: #### L 501.4100, L501.9985, L500.4100, L501.9520, L501.4405, L500.2500 #### [facility] [address] [place], [address] Cholesterol in HDL [Mass/Vol] 39 mg/dL Low [facility] Comment on above: Result Comment: Ena onal Cholesterol Education Program (NCEP) guidelines: <40 mg/dL: Low HDL-cholesterol (major risk factor for CHD) >= 60 mg/dL: High HDL-cholesterol (negative risk factor for CHD) HDL-cholesterol is affected by a number of factors, e.g. smoking, exercise, hormones, sex and age. Performed By: #### L 501.4100, L501.9985, L500.4100, L501.9520, L501.4405, L500.2500 #### [facility] [address] [place], [address] Cholesterol in LDL [Mass/Vol] 109 mg/dL Normal [facility] Comment on above: Result Comment: Bord odrkhr=430-431 mg/dL Higher Ngkc=157 mg/dL or greater Performed By: #### L 501.4100, L501.9985, L500.4100, L501.9520, L501.4405, L500.2500 #### [facility] [address] [place], [address] Cholesterol in VLDL [Mass/Vol] 109 mg/dL High 5-40 [facility] Comment on above: Performed By: #### L 501.4100, L501.9985, L500.4100, L501.9520, L501.4405, L500.2500 #### [facility] [address] [place], [address] Triglyceride [Mass/Vol] 545 mg/dL High W [facility] Comment on above: Result Comment: The drugs N-Acetylcysteine and Metamizole may falsely depress this assay. Normal range: <150 mg/dL Borderline High: 150-199 mg/dL High: 200-499 mg/dL Very High: >500 mg/dL Performed By: #### L 501.4100, L501.9985, L500.4100, L501.9520, L501.4405, L500.2500 #### [facility] [address] [place], [address] Thyroid Stim Hormone (TSH)on 02-27-2025 TSH 1.690 uIU/mL Normal 0.300-4.200 [facility] Comment on above: Performed By: #### L 501.4100, L501.9985, L500.4100, L501.9520, L501.4405, L500.2500 #### [facility] [address] [place], [address] /BMS.BPon 02-13-2025 MR/BMS.BP [address], [address] [place] [address] OFFICE VISIT Date of Service: 02/13/25 MR#: [id number] Acct: [id number] Name: JOANNE STALLWORTH Rep #: [id number] : 1975 Provider: Dr. Maciel Shabazz se, DO Age/Sex: 49/F Location: [facility] Status: Signed Intake Vital Signs 12/05/24 09:52 [...] pain S (more content not included)... Normal [facility] CBC W/Diff, Automatedon 01-12 Absolute Lymph 3.17 X10 3/uL Normal 0.83-4.51 [facility] Comment on above: Order Comment: DR.DI COX ORDERED LH,FSH,TSH,VITDDR.JERI ORDERED CBCD,CMP AND LIPID Performed By: #### L 500.4050, L100.0100, L506.1001, L3100.5170, L3100.5125, L501.9520, L500.4100 ####[facility] [address] [place], [place], [phone] Absolute Neut 7.1 X10 3/uL Normal 2.0-7.7 [facility] Comment on above: Order Comment: DR.DI COX ORDERED LH,FSH,TSH,VITDDR.ДМИТРИЙTorsten ORDERED CBCD,CMP AND LIPID Performed By: #### L 500.4050, L100.0100, L506.1001, L3100.5170, L3100.5125, L501.9520, L500.4100 ####[facility] [address] [facility] [address] [place], [place], [phone] Basophils/100 WBC (Bld) 0.5 % Normal 0-1 [facility] Comment on above: Order Comment: DR.DI COX ORDERED LH,FSH,TSH,VITDDR.OLEGHE ORDERED CBCD,CMP AND LIPID Performed By: #### L 500.4050, L100.0100, L506.1001, L3100.5170, L3100.5125, L501.9520, L500.4100 ####[facility] [address] [place], [address] Eosinophils/100 WBC (Bld) 0.7 % Normal 0-5 [facility] Comment on above: Order Comment: DR.DI COX ORDERED LH,FSH,TSH,VITDDR.OLEGHE ORDERED CBCD,CMP AND LIPID Performed By: #### L 500.4050, L100.0100, L506.1001, L3100.5170, L3100.5125, L501.9520, L500.4100 ####[facility] [address] [place], [address] Erythrocyte distribution width (RBC) [Ratio] 12.2 % Normal 11.6-14.6 [facility] Comment on above: Order Comment: DR.DI COX ORDERED LH,FSH,TSH,VITDDR.OLEGHE ORDERED CBCD,CMP AND LIPID Performed By: #### L 500.4050, L100.0100, L506.1001, L3100.5170, L3100.5125, L501.9520, L500.4100 ####[facility] [address] [place], [address] Hematocrit (Bld) [Volume fraction] 45.8 % Normal 37-47 [facility] Comment on above: Order Comment: DR.DI COX ORDERED LH,FSH,TSH,VITDDR.OLEGHE ORDERED CBCD,CMP AND LIPID Performed By: #### L 500.4050, L100.0100, L506.1001, L3100.5170, L3100.5125, L501.9520, L500.4100 ####[facility] [address] [place], [address] Hemoglobin (Bld) [Mass/Vol] 15.5 g/dL High 12.0-15.0 [facility] Comment on above: Order Comment: DR.DI COX ORDERED LH,FSH,TSH,VITDDR.OLEGHE ORDERED CBCD,CMP AND LIPID Performed By: #### L 500.4050, L100.0100, L506.1001, L3100.5170, L3100.5125, L501.9520, L500.4100 ####[facility] [address] [place], [address] IG% 0.900 Normal 0.0-0.9 [facility] Comment on above: Order Comment: DR.DI COX ORDERED LH,FSH,TSH,VITDDR.OLEGHE ORDERED CBCD,CMP AND LIPID Result Comment: IG% - Immature Granulocytes (promyelocytes, myelocytes and metamyelocytes) > 1% indicates that a LEFT SHIFT is Present. Performed By: #### L 500.4050, L100.0100, L506.1001, L3100.5170, L3100.5125, L501.9520, L500.4100 ####[facility] [address] [place], [address] Lymphocytes/100 WBC (Bld) 28.3 % Normal 19-41 [facility] Comment on above: Order Comment: DR.DI COX ORDERED LH,FSH,TSH,VITDDR.OLEGHE ORDERED CBCD,CMP AND LIPID Performed By: #### L 500.4050, L100.0100, L506.1001, L3100.5170, L3100.5125, L501.9520, L500.4100 ####[facility] [address] [place], [address] MCH (RBC) [Entitic mass] 31.6 pg Normal 27.0-32.0 [facility] Comment on above: Order Comment: DR.DI COX ORDERED LH,FSH,TSH,VITDDR.OLEGHE ORDERED CBCD,CMP AND LIPID Performed By: #### L 500.4050, L100.0100, L506.1001, L3100.5170, L3100.5125, L501.9520, L500.4100 ####[facility] [address] [place], [address] MCHC (RBC) [Mass/Vol] 33.8 g/dL Normal 32-36 [facility] Comment on above: Order Comment: DR.DI COX ORDERED LH,FSH,TSH,VITDDR.OLEGHE ORDERED CBCD,CMP AND LIPID Performed By: #### L 500.4050, L100.0100, L506.1001, L3100.5170, L3100.5125, L501.9520, L500.4100 ####[facility] [address] [place], [address] MCV (RBC) [Entitic vol] 93.3 fL Normal 81-99 [facility] Comment on above: Order Comment: DR.DI COX ORDERED LH,FSH,TSH,VITDDR.OLEGHE ORDERED CBCD,CMP AND LIPID Performed By: #### L 500.4050, L100.0100, L506.1001, L3100.5170, L3100.5125, L501.9520, L500.4100 ####[facility] [address] [place], [address] Monocytes/100 WBC (Bld) 6.4 % Normal 0-10 [facility] Comment on above: Order Comment: DR.DI COX ORDERED LH,FSH,TSH,VITDDR.OLEGHE ORDERED CBCD,CMP AND LIPID Performed By: #### L 500.4050, L100.0100, L506.1001, L3100.5170, L3100.5125, L501.9520, L500.4100 ####[facility] [address] [place], [address] Neutrophils/100 WBC (Bld) 63.2 % Normal 47-70 [facility] Comment on above: Order Comment: DR.DI COX ORDERED LH,FSH,TSH,VITDDR.OLEGHE ORDERED CBCD,CMP AND LIPID Performed By: #### L 500.4050, L100.0100, L506.1001, L3100.5170, L3100.5125, L501.9520, L500.4100 ####[facility] [address] [place], [address] Nucleated RBC (Bld) [#/Vol] 0 10*3/uL Normal 0-5 [facility] Comment on above: Order Comment: DR.DI COX ORDERED LH,FSH,TSH,VITDDR.OLEGHE ORDERED CBCD,CMP AND LIPID Performed By: #### L 500.4050, L100.0100, L506.1001, L3100.5170, L3100.5125, L501.9520, L500.4100 ####[facility] [address] [place], [address] Platelet mean volume (Bld) [Entitic vol] 9.3 fL Normal 6.2-12.0 [facility] Comment on above: Order Comment: DR.DI COX ORDERED LH,FSH,TSH,VITDDR.OLEGHE ORDERED CBCD,CMP AND LIPID Performed By: #### L 500.4050, L100.0100, L506.1001, L3100.5170, L3100.5125, L501.9520, L500.4100 ####[facility] [address] [place], [address] Platelets (Bld) [#/Vol] 385 10*3/uL Normal 150-450 [facility] Comment on above: Order Comment: DR.DI COX ORDERED LH,FSH,TSH,VITDDR.OLEGHE ORDERED CBCD,CMP AND LIPID Performed By: #### L 500.4050, L100.0100, L506.1001, L3100.5170, L3100.5125, L501.9520, L500.4100 ####[facility] [address] [place], [address] RBC (Bld) [#/Vol] 4.91 10*6/uL Normal 4.2-5.4 [facility] Comment on above: Order Comment: DR.DI COX ORDERED LH,FSH,TSH,VITDDR.OLEGHE ORDERED CBCD,CMP AND LIPID Performed By: #### L 500.4050, L100.0100, L506.1001, L3100.5170, L3100.5125, L501.9520, L500.4100 ####[facility] [address] [place], [address] RDW SD 42.1 fl Normal 35.1-43.9 [facility] Comment on above: Order Comment: DR.DI COX ORDERED LH,FSH,TSH,VITDDR.OLEGHE ORDERED CBCD,CMP AND LIPID Performed By: #### L 500.4050, L100.0100, L506.1001, L3100.5170, L3100.5125, L501.9520, L500.4100 ####[facility] [address] [place], [address] WBC (Bld) [#/Vol] 11.2 10*3/uL High 4.4-11.0 [facility] Comment on above: Order Comment: DR.DI COX ORDERED LH,FSH,TSH,VITDDR.OLEGHE ORDERED CBCD,CMP AND LIPID Performed By: #### L 500.4050, L100.0100, L506.1001, L3100.5170, L3100.5125, L501.9520, L500.4100 ####[facility] [address] [place], [address] Comprehensive Metabolic Prof ilon 01-23-2025 Albumin [Mass/Vol] 4.3 g/dL Normal 3.5-5.0 [facility] Comment on above: Order Comment: DR.DI COX ORDERED LH,FSH,TSH,VITDDR.OLEGHE ORDERED CBCD,CMP AND LIPID Performed By: #### L 500.4050, L100.0100, L506.1001, L3100.5170, L3100.5125, L501.9520, L500.4100 ####[facility] [address] [place], [address] Albumin/Globulin [Mass ratio] 1.3 {ratio} Normal 0.9-2.4 [facility] Comment on above: Order Comment: DR.DI COX ORDERED LH,FSH,TSH,VITDDR.OLEGHE ORDERED CBCD,CMP AND LIPID Performed By: #### L 500.4050, L100.0100, L506.1001, L3100.5170, L3100.5125, L501.9520, L500.4100 ####[facility] [address] [place], [place], [phone] ALK PHOS 74 U/L Normal 35-104 [facility] Comment on above: Order Comment: DR.DI COX ORDERED LH,FSH,TSH,VITDDR.OLEGHE ORDERED CBCD,CMP AND LIPID Performed By: #### L 500.4050, L100.0100, L506.1001, L3100.5170, L3100.5125, L501.9520, L500.4100 ####[facility] [address] [place], [place], [phone](831) ALT [Catalytic activity/Vol] 16 U/L Normal <=34 [facility] Comment on above: Order Comment: DR.DI COX ORDERED LH,FSH,TSH,VITDDR.OLEGHE ORDERED CBCD,CMP AND LIPID Performed By: #### L 500.4050, L100.0100, L506.1001, L3100.5170, L3100.5125, L501.9520, L500.4100 ####[facility] [address] [place], [place], [phone]([phone] AST [Catalytic activity/Vol] 22 U/L Normal <=31 [facility] Comment on above: Order Comment: DR.DI COX ORDERED LH,FSH,TSH,VITDDR.OLEGHE ORDERED CBCD,CMP AND LIPID Result Comment: Hemo lysis present, Results??could be affected. ?? Performed By: #### L 500.4050, L100.0100, L506.1001, L3100.5170, L3100.5125, L501.9520, L500.4100 ####[facility] [address] [place], [address] Bilirubin [Mass/Vol] 0.23 mg/dL Normal 0.00-1.30 [facility] Comment on above: Order Comment: DR.DI COX ORDERED LH,FSH,TSH,VITDDR.OLEGHE ORDERED CBCD,CMP AND LIPID Performed By: #### L 500.4050, L100.0100, L506.1001, L3100.5170, L3100.5125, L501.9520, L500.4100 ####[facility] [address] [place], [address] BUN/CRE 33.2 RATIO High 10-20 [facility] Comment on above: Order Comment: DR.DI COX ORDERED LH,FSH,TSH,VITDDR.OLEGHE ORDERED CBCD,CMP AND LIPID Performed By: #### L 500.4050, L100.0100, L506.1001, L3100.5170, L3100.5125, L501.9520, L500.4100 ####[facility] [address] [place], [address] Calcium [Mass/Vol] 10.2 mg/dL Normal 7.6-11.0 [facility] Comment on above: Order Comment: DR.DI COX ORDERED LH,FSH,TSH,VITDDR.OLEGHE ORDERED CBCD,CMP AND LIPID Performed By: #### L 500.4050, L100.0100, L506.1001, L3100.5170, L3100.5125, L501.9520, L500.4100 ####[facility] [address] [place], [address] Chloride [Moles/Vol] 98 mmol/L Normal 98-108 [facility] Comment on above: Order Comment: DR.DI COX ORDERED LH,FSH,TSH,VITDDR.OLEGHE ORDERED CBCD,CMP AND LIPID Performed By: #### L 500.4050, L100.0100, L506.1001, L3100.5170, L3100.5125, L501.9520, L500.4100 ####[facility] [address] [place], [address] CO2 [Moles/Vol] 24.3 mmol/L Normal 21.0-32.0 [facility] Comment on above: Order Comment: DR.DI COX ORDERED LH,FSH,TSH,VITDDR.OLEGHE ORDERED CBCD,CMP AND LIPID Performed By: #### L 500.4050, L100.0100, L506.1001, L3100.5170, L3100.5125, L501.9520, L500.4100 ####[facility] [address] [place], [address] Creatinine [Mass/Vol] 0.69 mg/dL Low 0.70-1.20 [facility] Comment on above: Order Comment: DR.DI COX ORDERED LH,FSH,TSH,VITDDR.OLEGHE ORDERED CBCD,CMP AND LIPID Performed By: #### L 500.4050, L100.0100, L506.1001, L3100.5170, L3100.5125, L501.9520, L500.4100 ####[facility] [address] [place], [address] GAP 15 Normal 5-15 [facility] Comment on above: Order Comment: DR.DI COX ORDERED LH,FSH,TSH,VITDDR.OLEGHE ORDERED CBCD,CMP AND LIPID Performed By: #### L 500.4050, L100.0100, L506.1001, L3100.5170, L3100.5125, L501.9520, L500.4100 ####[facility] [address] [place], [address] GFR/1.73 sq M.predicted among non-blacks MDRD (S/P/Bld) [Vol rate/Area] 108 mL/min/{1.73_m2} Normal >60 [facility] Comment on above: Order Comment: DR.DI COX ORDERED LH,FSH,TSH,VITDDR.OLEGHE ORDERED CBCD,CMP AND LIPID Result Comment: mL/m in/1.73m2 CKD-EPI Creatinine Equation (2020) Performed By: #### L 500.4050, L100.0100, L506.1001, L3100.5170, L3100.5125, L501.9520, L500.4100 ####[facility] [address] [place], [address] Globulin (S) [Mass/Vol] 3.2 g/dL Normal 2.2-4.2 [facility] Comment on above: Order Comment: DR.DI COX ORDERED LH,FSH,TSH,VITDDR.OLEGHE ORDERED CBCD,CMP AND LIPID Performed By: #### L 500.4050, L100.0100, L506.1001, L3100.5170, L3100.5125, L501.9520, L500.4100 ####[facility] [address] [place], [address] Glucose [Mass/Vol] 145 mg/dL High 70-99 [facility] Comment on above: Order Comment: DR.DI COX ORDERED LH,FSH,TSH,VITDDR.OLEGHE ORDERED CBCD,CMP AND LIPID Performed By: #### L 500.4050, L100.0100, L506.1001, L3100.5170, L3100.5125, L501.9520, L500.4100 ####[facility] [address] [place], [address] Potassium [Moles/Vol] 4.4 mmol/L Normal 3.3-5.1 [facility] Comment on above: Order Comment: DR.DI COX ORDERED LH,FSH,TSH,VITDDR.OLEGHE ORDERED CBCD,CMP AND LIPID Result Comment: Hemo lysis present, Results??could be affected. ?? Performed By: #### L 500.4050, L100.0100, L506.1001, L3100.5170, L3100.5125, L501.9520, L500.4100 ####[facility] [address] [place], [address] Sodium [Moles/Vol] 137 mmol/L Normal 133-145 [facility] Comment on above: Order Comment: DR.DI COX ORDERED LH,FSH,TSH,VITDDR.OLEGHE ORDERED CBCD,CMP AND LIPID Performed By: #### L 500.4050, L100.0100, L506.1001, L3100.5170, L3100.5125, L501.9520, L500.4100 ####[facility] [address] [place], [address] T PROT 7.5 g/dL Normal 5.9-8.4 [facility] Comment on above: Order Comment: DR.DI COX ORDERED LH,FSH,TSH,VITDDR.OLEGHE ORDERED CBCD,CMP AND LIPID Performed By: #### L 500.4050, L100.0100, L506.1001, L3100.5170, L3100.5125, L501.9520, L500.4100 ####[facility] [address] [place], [address] Urea nitrogen [Mass/Vol] 23 mg/dL High 4-19 [facility] Comment on above: Order Comment: DR.DI COX ORDERED LH,FSH,TSH,VITDDR.OLEGHE ORDERED CBCD,CMP AND LIPID Performed By: #### L 500.4050, L100.0100, L506.1001, L3100.5170, L3100.5125, L501.9520, L500.4100 ####[facility] [address] [place], [place], [phone] Follicle Stimulating Hormone on 01-23-2025 FSH 15.0 mIU/mL Normal [facility] Comment on above: Order Comment: DR.DI [...] 500.4050, L100.0100, L506.1001, L3100.5170, L3100.5125, L501.9520, L500.4100 ####[facility] [address] [place], [place], [phone] Lipid Profileon 01-23-2025 CHOL:HDL 5.06 Normal [facility] Comment on above: Order Comment: DR.DI COX ORDERED LH,FSH,TSH,VITDDR.OLERADHA ORDERED CBCD,CMP AND LIPID Performed By: #### L 500.4050, L100.0100, L506.1001, L3100.5170, L3100.5125, L501.9520, L500.4100 ####[facility] [address] [place], [place], [phone]([phone] Cholesterol [Mass/Vol] 208 mg/dL High <=200 [facility] Comment on above: Order Comment: DR.DI COX ORDERED LH,FSH,TSH,VITDDR.JERI ORDERED CBCD,CMP AND LIPID Result Comment: Chol esterol level, Desirable <200 mg/dL Borderline high cholesterol 200-239 mg/dL High cholesterol >=240 mg/dL Recommendations of the NCEP Adult Treatment Panel for the following risk-cutoff thresholds for the [place] population. Performed By: #### L 500.4050, L100.0100, L506.1001, L3100.5170, L3100.5125, L501.9520, L500.4100 ####[facility] [address] [place], [address]([phone] Cholesterol in HDL [Mass/Vol] 41 mg/dL Normal [facility] Comment on above: Order Comment: DR.DI [...] 500.4050, L100.0100, L506.1001, L3100.5170, L3100.5125, L501.9520, L500.4100 ####[facility] [address] [place], [address] Cholesterol in LDL [Mass/Vol] 81 mg/dL Normal [facility] Comment on above: Order Comment: DR.DI COX ORDERED LH,FSH,TSH,VITDDR.OLEGHE ORDERED CBCD,CMP AND LIPID Result Comment: Bord krtziz=015-967 mg/dL Higher Iqil=154 mg/dL or greater Performed By: #### L 500.4050, L100.0100, L506.1001, L3100.5170, L3100.5125, L501.9520, L500.4100 ####[facility] [address] [place], [place], [phone] Cholesterol in VLDL [Mass/Vol] 86 mg/dL High 5-40 [facility] Comment on above: Order Comment: DR.DI COX ORDERED LH,FSH,TSH,VITDDR.JERI ORDERED CBCD,CMP AND LIPID Performed By: #### L 500.4050, L100.0100, L506.1001, L3100.5170, L3100.5125, L501.9520, L500.4100 ####[facility] [address] [place], [place], [phone] Triglyceride [Mass/Vol] 432 mg/dL High [facility] Comment on above: Order Comment: DR.DI COX ORDERED LH,FSH,TSH,VITDDRJEYSON ORDERED CBCD,CMP AND LIPID Result Comment: The drugs N-Acetylcysteine and Metamizole may falsely depress this assay. Normal range: <150 mg/dL Borderline High: 150-199 mg/dL High: 200-499 mg/dL Very High: >500 mg/dL Performed By: #### L 500.4050, L100.0100, L506.1001, L3100.5170, L3100.5125, L501.9520, L500.4100 ####[facility] [address] [place], [place], [phone] Luteinizing Hormoneon 2024 LH 9.8 mIU/mL Normal [facility] Comment on above: Order Comment: DR.DI COX ORDERED LH,FSH,TSH,VITDDRJEYSON ORDERED CBCD,CMP AND LIPID Result Comment: FEMA LE: Follicular: 1.9-12.5 mIU/mL Midcycle: 8.7-76.3 mIU/mL Luteal: 0.5-16.9 mIU/mL Post Menopause: 15.9-54.0 mIU/mL MALE: 20-70 Years: 1.5-9.3 mIU/mL >70 Years: 3.1-34.6 mIU/mL Performed By: #### L 500.4050, L100.0100, L506.1001, L3100.5170, L3100.5125, L501.9520, L500.4100 ####[facility] [address] [place], [place], [address] Thyroid Stim Hormone (TSH)on 01-23-2025 TSH 2.640 uIU/mL Normal 0.300-4.200 [facility] Comment on above: Order Comment: DR.DI COX ORDERED LH,FSH,TSH,VITDDR.JERI ORDERED CBCD,CMP AND LIPID Performed By: #### L 500.4050, L100.0100, L506.1001, L3100.5170, L3100.5125, L501.9520, L500.4100 ####[facility] [address] [place], [place], [phone] Vitamin D,25 Hydroxyon 01-23 Vitamin D 25-OH 28.6 ng/mL Low 30-100 [facility] Comment on above: Order Comment: DR.DI COX ORDERED LH,FSH,TSH,VITDDR.JERI ORDERED CBCD,CMP AND LIPID Result Comment: Cristina min D Status Deficiency: <20 ng/mL (50nmol/L) Insufficiency: 20-30 ng/mL (50-75 nmol/L) Sufficiency: 30-100 ng/mL (75-250 nmol/L) Toxicity: >100 ng/mL (>250 nmol/L) Performed By: #### L 500.4050, L100.0100, L506.1001, L3100.5170, L3100.5125, L501.9520, L500.4100 ####[facility] [address] [place], [place], [address] Internal Medicine Office Vis itonicholas 01-18-2025 Internal Medicine Office Visit [facility] [place], [place] [address] OFFICE VISIT Date of Service: 01/18/25 MR#: [id number] Acct: [id number] Name: JOANNE STALLWORTH Rep #: [id number] : 1975 Provider: Dr. 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 Will have FSH,LH and some other labs drawn. through Dr. Moffett [facility] Medical History Generalized anxiety disorder Major depressive [...] lump KAMAR (more content not included)... Normal [facility] Gastroenterology Visit Repor ton 12-05-2024 Gastroenterology Visit Report [facility] [address] [place] [address] OFFICE VISIT Date of Service: 12/05/24 MR#: [id number] Acct: [id number] Name: BASIMZACHJOANNE Julio Rep #: [id number] : 1975 Provider: Marino Trotter, DO Age/Sex: 49/F Location: [facility] Status: Signed Intake Vital Signs 03/02/24 10:05 [...] pain Arthritis Hypertension Surgical History ... Normal [facility] MR/BMS.BPon 12-05-2024 MR/BMS.BP [address], [address] [place] [address] OFFICE VISIT Date of Service: 12/05/24 MR#: [id number] Acct: [id number] Name: JOANNE STALLWORTH Julio Rep #: [id number] : 1975 Provider: Dr. Maciel Shabazz se, DO Age/Sex: 49/F Location: [facility] Status: Signed Intake Vital Signs 09/12/24 09:57 [...] because of this. 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 Outside of work, things [...] none Ho (more content not included)... Normal [facility] AST(SGOT)on 12-03-2024 AST [Catalytic activity/Vol] 19 U/L Normal <=31 [facility] Comment on above: Performed By: #### L 500.2500, L501.4405, L501.4100, L501.9985 ####[facility] [address] [facility] [address] Alanine Aminotransferas (SGP T)on 12-03-2024 ALT [Catalytic activity/Vol] 14 U/L Normal <=34 [facility] Comment on above: Performed By: #### L 500.2500, L501.4405, L501.4100, L501.9985 ####[facility] [address] [place], [address] Basic Metabolic Profile (BMP )on 12-03-2024 BUN/CRE 33.0 RATIO High 10-20 [facility] Comment on above: Performed By: #### L 500.2500, L501.4405, L501.4100, L501.9985 ####[facility] [address] [place], [address] Calcium [Mass/Vol] 9.4 mg/dL Normal 7.6-11.0 [facility] Comment on above: Performed By: #### L 500.2500, L501.4405, L501.4100, L501.9985 ####[facility] [address] [place], [address] Chloride [Moles/Vol] 98 mmol/L Normal 98-108 [facility] Comment on above: Performed By: #### L 500.2500, L501.4405, L501.4100, L501.9985 ####[facility] [address] [place], [address] CO2 [Moles/Vol] 23.9 mmol/L Normal 21.0-32.0 [facility] Comment on above: Performed By: #### L 500.2500, L501.4405, L501.4100, L501.9985 ####[facility] [address] [place], [address] Creatinine [Mass/Vol] 0.66 mg/dL Low 0.70-1.20 [facility] Comment on above: Performed By: #### L 500.2500, L501.4405, L501.4100, L501.9985 ####[facility] [address] [place], [address] GAP 15 Normal 5-15 [facility] Comment on above: Performed By: #### L 500.2500, L501.4405, L501.4100, L501.9985 ####[facility] [address] [place], [address] GFR/1.73 sq M.predicted among non-blacks MDRD (S/P/Bld) [Vol rate/Area] 109 mL/min/{1.73_m2} Normal >60 [facility] Comment on above: Result Comment: mL/m in/1.73m2 CKD-EPI Creatinine Equation (2020) Performed By: #### L 500.2500, L501.4405, L501.4100, L501.9985 ####[facility] [address] [place], [address] Glucose [Mass/Vol] 170 mg/dL High 70-99 [facility] Comment on above: Performed By: #### L 500.2500, L501.4405, L501.4100, L501.9985 ####[facility] [address] [place], [address] Potassium [Moles/Vol] 4.8 mmol/L Normal 3.3-5.1 [facility] Comment on above: Result Comment: Hemo lysis present, Results??could be affected. ?? Performed By: #### L 500.2500, L501.4405, L501.4100, L501.9985 ####[facility] [address] [place], [address] Sodium [Moles/Vol] 136 mmol/L Normal 133-145 [facility] Comment on above: Performed By: #### L 500.2500, L501.4405, L501.4100, L501.9985 ####[facility] [address] [place], [address] Urea nitrogen [Mass/Vol] 22 mg/dL High 4-19 [facility] Comment on above: Performed By: #### L 500.2500, L501.4405, L501.4100, L501.9985 ####[facility] [address] [place], [address] Hemoglobin A1con 12-03-2024 HbA1c (Bld) [Mass fraction] 7.5 % Normal <=5.6 [facility] Comment on above: Performed By: #### L 500.2500, L501.4405, L501.4100, L501.9985 ####[facility] [address] [place], [address] Urgent Care Visit Reporton 0 11-25-2024 Urgent Care Visit Report [facility] [address], [address] [place] [address] OFFICE VISIT Date of Service: 11/25/24 MR#: [id number] Acct: [id number] Name: JOANNE STALLWORTH Rep #: [id number] : 1975 Provider: CHETAN Dixon Age/Sex: 49/F Location: [facility] Status: Signed Intake Vital Signs 09/12/24 09:57 [...] 3 days for some of they symptoms. [facility] Medical History Wears glasses Depression Anxiety Injury of head and neck Non-smoker BiPAP (biphasic positive airway pressure) dependence Shortness of breath on exertion History of stress test Health care maintenance Colon cancer screening Hypokalemia Insomnia Psoriasis MDD (major depressive disorder) Acute streptococcal pharyngitis Flu vaccine need Menstrual irregularity Fatty liver disease, nonalcoholic Osteoarthritis Morbid obesity ELVIS (obstruct (more content not included)... Normal [facility] Internal Medicine Office Vis iton 09-12-2024 Internal Medicine Office Visit [facility] [address] [place] [address] OFFICE VISIT Date of Service: 09/12/24 MR#: [id number] Acct: [id number] Name: JOANNE STALLWORTH Rep #: [id number] : 1975 Provider: Dr. 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 [facility] MR/BMS.BPon 09-12-2024 MR/BMS.[address], [place] [address] OFFICE VISIT Date of Service: 09/12/24 MR#: [id number] Acct: [id number] Name: JOANNE STALLWORTH Rep #: [id number] : 1975 Provider: Dr. Maciel Shabazz se, DO Age/Sex: 49/F Location: [facility] Status: Signed Intake Vital Signs 05/18/24 16:21 [...] Hypertension Surgic (more content not included)... [facility] Bedside Glucoseon 09-09-2024 FINGERSTICK GLU 222 mg/dL High 74-106 [facility] Comment on above: Result Comment: MASON MAXWELL OF PATIENT CARE PER NURSING PROTOCOL Performed By: #### L 501.080 ####[facility] [address] [place], [address] Colonoscopy Reporton 024 Colonoscopy Report [facility] Medical Records Department [address] [place] [address] Colonoscopy Report MR#: [id number] Acct: [id number] Name: JOANNE STALLWORTH Rep #: [id number] : 1975 49 From: Marino Trotter DO PCP: Dr. Rogers Bellamy MD Status:REG [facility] Patient Name: Joanne Stallworth Procedure [...] criteria for high risk CPT copyright 2021 [employer]. All rights reserved. The codes documented in this report are preliminary and upon professor of environmental engineering review may be revised to meet current compliance requirements. Marino Trotter DO 09/09/2024 12:45:41 PM This report has been signed electronically. Number of Addenda: 0 Note Initiated On: 09/09/2024 11:01 AM 09/09/24 1246 Date Marino Roach Signature: Date (if indicated) CC: Dr. Rogers Bellamy MD; Marino Trotter DO Date Dictated: 09/09/24 1101 Date Transcribed: Sheeter Helper: RUBEN Signed [facility] MR/POSTOP.ANEon 09-09-2024 MR/POSTOP.[facility] Medical Records Department [address] [facility] [place] [address] Anesthesia Postop Eval I 09/09/24 1248 MR#: [id number] Acct: [id number] Name: JOANNE STALLWORTH Rep #: [id number] : 1975 49 From: Dago Grijalva PCP: Dr. Rogers Bellamy MD Status:REG [facility] Y Race: C Location: [place] [address] Anesthesia: Postop Eval I Current Vital Signs [...] Date Dago Solis Signature: Date CC: Signed [facility] MR/XSSQDVKE8ed 09-09-2024 MR/POST[address] Medical Records Department [address] [place] [address] Anesthesia Postop Eval II 09/09/24 1352 MR#: [id number] Acct: [id number] Name: JOANNE STALLWORTH Rep #: [id number] : 1975 49 From: Marcelo Price MD PCP: Dr. Rogers Bellamy MD Status:[facility] Y Race: C Location: EN Anesthesia Postop [...] MD Cosigner Signature: Date CC: Signed [facility] ,Urineon 09-09-2024 Beta HCG ( test) Ql (U) Negative [facility] Comment on above: Result Comment: Very dilute urine specimens, as indicated by a low specific gravity, may not contain entry level account representative levels of hCG. If is still suspected, a first morning urine specimen should be collected 48 hours later and tested. Performed By: #### L 400.7600 ####[facility] [address] [place], [place], [address] MR/PAT.BRADYon 09-08-2024 MR/PAT.BRADY [facility] Medical Records Department [address] [place] [address] PAT - Anesthesia 09/08/24 1129 MR#: [id number] Acct: [id number] Name: JOANNE STALLWORTH Rep #: [id number] : 1975 49 From: Froilan Lerma MD PCP: Dr. 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 Female Yes 09/08/24 11:07 HX of Motion [...] 07/20/24 09:33 Respiratory Assessment Respiratory Assessment - 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: Respiratory Tract Infection Hx - 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 Hx Respiratory Tract Infection No 09/08/24 11:07 STOP Sleep Apnea STOP Sleep Apnea - 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: STOP Sleep Apnea - 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 Hx Hypertension Yes: CONTROLLED ON MED 09/08/24 [...] Tobacco Use History Tobacco Use History - 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: Tobacco Use 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 (more content not included)... [facility] ABD Limited w/ Elastographyo n 09-05-2024 ABD Limited w/ Elastography [facility] Imaging Services [address] [place] [address] ABD Limited w/ Elastography MR#: [id number] Acct: [id number] Name: JOANNE STALLWORTH Rep #: [id number] : 1975 F 49 From: Adán franklin MD PCP: Dr. Rogers Bellamy MD Status: [facility] Study: ABD Limited w/ Elastography Date of Exam: 08/15 12/05 Exam# [id number] Ordering Dr: Marino Trotter DO [id number] STUDY: ABDOMINAL ULTRASOUND - RIGHT UPPER QUADRANT; ELASTOGRAPHY REASON FOR VISIT: Female, 49 years old. Fatty infiltration of liver. TECHNIQUE: Ultrasound evaluation of the right upper quadrant was performed with real-time and static bolden-scale imaging. Point quantification shear wave elastography was performed ([employer]). TECHNICAL QUALITY: Adequate. COMPARISON: Comparison is made [...] 13:06 EST Reading Location ID and State: [address] [place] [address] , Service support , CC: Dr. Rogers Bellamy MD; Marino Trotter, Sheeter Helper: Signed [facility] AST(SGOT)on 08-27-2024 AST [Catalytic activity/Vol] 17 U/L Normal 15-37 [facility] Comment on above: Result Comment: Slig ht Hemolysis, Result may be falsely increased. Performed By: #### L 501.8298, L501.7704, L500.2500, L501.6516 ####[facility] [address] [place], [place], [id number] Alanine Aminotransferas (SGP T)on 08-27-2024 ALT [Catalytic activity/Vol] 26 U/L Normal 13-56 [facility] Comment on above: Performed By: #### L 501.4100, L501.9985, L500.2500, L501.4405 ####[facility] [address] [place], [address] Basic Metabolic Profile (BMP )on 08-27-2024 BUN/CRE 24.7 RATIO High 10-20 [facility] Comment on above: Performed By: #### L 501.4100, L501.9985, L500.2500, L501.4405 ####[facility] [address] [place], [address] CA,Total 9.6 mg/dL Normal 8.5-10.1 [facility] Comment on above: Performed By: #### L 501.4100, L501.9985, L500.2500, L501.4405 ####[facility] [address] [place], [address] Chloride [Moles/Vol] 100 mmol/L Normal 98-107 [facility] Comment on above: Performed By: #### L 501.4100, L501.9985, L500.2500, L501.4405 ####[facility] [address] [place], [address] CO2 [Moles/Vol] 30.0 mmol/L Normal 21.0-32.0 [facility] Comment on above: Performed By: #### L 501.4100, L501.9985, L500.2500, L501.4405 ####[facility] [address] [place], [address] Creatinine [Mass/Vol] 0.69 mg/dL Normal 0.55-1.02 [facility] Comment on above: Result Comment: The validity of the calculated GFR GFRAA in patients over 70 years has not been determined. Clinical correlation is essential. Performed By: #### L 501.4100, L501.9985, L500.2500, L501.4405 ####[facility] [address] [place], [address] EST GFR - AA 118 mL/min Normal >60 [facility] Comment on above: Result Comment: Afri can [employer] GFR Calc Performed By: #### L 501.4100, L501.9985, L500.2500, L501.4405 ####[facility] [address] [place], [address] GAP 8 Normal 5-15 [facility] Comment on above: Performed By: #### L 501.4100, L501.9985, L500.2500, L501.4405 ####[facility] [address] [place], [address] GFR/1.73 sq M.predicted among non-blacks MDRD (S/P/Bld) [Vol rate/Area] 97 mL/min/{1.73_m2} Normal >60 [facility] Comment on above: Result Comment: Non- GFR Calc Performed By: #### L 501.4100, L501.9985, L500.2500, L501.4405 ####[facility] [address] [place], [address] Glucose [Mass/Vol] 225 mg/dL High 74-106 [facility] Comment on above: Result Comment: Gluc ose result greater than or equal to 200 mg/dL suggests DIABETES MELLITUS per A.D.A. criteria. Performed By: #### L 501.4100, L501.9985, L500.2500, L501.4405 ####[facility] [address] [place], [address] Potassium [Moles/Vol] 4.1 mmol/L Normal 3.5-5.1 [facility] Comment on above: Result Comment: Slig ht Hemolysis, Result may be falsely increased. Performed By: #### L 501.4100, L501.9985, L500.2500, L501.4405 ####[facility] [address] [place], [address] Sodium [Moles/Vol] 138 mmol/L Normal 136-145 [facility] Comment on above: Performed By: #### L 501.4100, L501.9985, L500.2500, L501.4405 ####[facility] [address] [place], [address] Urea nitrogen [Mass/Vol] 17 mg/dL Normal 7-18 [facility] Comment on above: Performed By: #### L 501.4100, L501.9985, L500.2500, L501.4405 ####[facility] [address] [place], [address] Hemoglobin A1con 08-27-2024 HbA1c (Bld) [Mass fraction] 7.1 % High 3.8-5.6 [facility] Comment on above: Result Comment: Norm al < 5.7 % Prediabetic 5.7 - 6.4 % Diabetic >or= 6.5 % Please note range changes. Performed By: #### L 501.4100, L501.9985, L500.2500, L501.4405 ####[facility] [address] [place], [address] SCRN MAMM (CAD)W/ROMERO BILATo n 07-28-2024 SCRN MAMM (CAD)W/ROMERO BILAT [facility] Imaging Services [address] [place] [address] SCRN MAMM (CAD)W/ROMERO BILAT MR#: [id number] Acct: [id number] Name: JOANNE STALLWORTH Rep #: [id number] : 1975 F 49 From: Adán franklin MD PCP: Dr. Rogers Bellamy MD Status: PRE CLI Study: SCRN MAMM (CAD)W/ROMERO BILAT Date of Exam: 07/15 01/05 Exam# [id number] Ordering Dr: Rogers Bellamy MD [id number] MAMMOGRAPHY - BILATERAL SCREENING REASON FOR EXAM: [...] delay biopsy of a clinically suspicious abnormality. [id number] Electronically Signed: Adán East MD at 7:29 EST , CC: Dr. 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 This neuropsychological assessment is part of a multidisciplinary evaluation conducted in the [facility]. 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 She reports stress related to management [...] high average. Processing speed on a digit-symbol automation engineer task was average. Speeded color naming was average, and speeded word reading was average. Performance on a sustained attention task showed poor vigilance and inattentiveness. Executive functioning: Mental flexibility and visuomotor set shifting was high average. Verbal response inhibition was extremely low, and the same task with a set switching component was average. Qualitatively, the radio repairer observed the patient to slow down on [...] of ge (more content not included)... Normal 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 She did not lose consciousness. Serological [...] help, co (more content not included)... Normal [facility] Vit B12 SerPl-mCncon 023 Cobalamin (Vitamin B12) [Mass/Vol] 340 pg/mL Normal 232-[address] [facility] Comment on above: Order Comment: Speci men Type: BLOOD SPECIMEN Ordering Facility: [facility] Address: [address] [place] [address] Performed By: #### 2 132-9 #### [facility] CLIA [id number] [facility] [address] STATES OF [facility] MRI BRAIN WO IVCONon 022 [facility] Absolute lymphocyte counton 06-30-2022 Lymphocytes Auto (Unsp spec) [#/Vol] 2.70 10*3/uL 0.83-4.51 [facility] Work Phone: Basophil percentageon 2021 Basophils/100 WBC (Bld) 0.4 % 0-1 [facility] Work Phone: Bilirubin [Mass/Vol] 0.30 mg/dL 0.20-1.00 [facility] Work Phone: Comment on above: For patients on eltr ombopag therapy, use of Dimension Merrill TBIL is not recommended. Eosinophils/100 WBC (Bld) 0.7 % 0-5 [facility] Work Phone: Neutrophils (Bld) [#/Vol] 6.2 10*3/uL 2.0-7.7 [facility] Work Phone: Neutrophils/100 WBC (Bld) 64.2 % 47-70 [facility] Work Phone: Protein [Mass/Vol] 7.7 g/dL 6.4-8.2 [facility] Work Phone: WBC (Bld) [#/Vol] 9.7 10*3/uL 4.4-11.0 [facility] Work Phone: Blood erythrocytes count (nu mber/volume)on 06-30-2022 RBC (Bld) [#/Vol] 4.87 10*6/uL 4.2-5.4 [facility] Blood hemoglobin measurement (mass/volume)on 06-30-2022 Hemoglobin (Bld) [Mass/Vol] 15.1 g/dL 12.0-15.0 [facility] Work Phone: Blood lymphocytes/100 leukoc yteson 06-30-2022 Lymphocytes/100 WBC (Bld) 27.9 % 19-41 [facility] Work Phone: Blood monocytes/100 leukocyt eson 06-30-2022 Monocytes/100 WBC (Bld) 5.9 % 0-10 [facility] Work Phone: Blood platelet mean volumeon 06-30-2022 Platelet mean volume (Bld) [Entitic vol] 10.0 fL 6.2-12.0 [facility] Work Phone: Determination of erythrocyte mean corpuscular volume (MCV)on 06-30-2022 MCV (RBC) [Entitic vol] 92.0 fL 81-99 [facility] Work Phone: Direct bilirubinon Bilirubin.direct [Mass/Vol] 0.07 mg/dL 0.00-0.30 [facility] Work Phone: [phone] Hematocrit Auto (Bld) [Volum e fraction]on 06-30-2022 Hematocrit (Bld) [Volume fraction] 44.8 % 37-47 [facility] Work Phone: [phone] Laboratory - Chemistry and C hemistry - challengeon 06-30-2022 ALP [Catalytic activity/Vol] 79 U/L 45-117 [facility] Work Phone: [phone] ALT [Catalytic activity/Vol] 20 U/L 13-56 [facility] Work Phone: [phone] Globulin (S) [Mass/Vol] 4.0 g/dL 2.2-4.2 [facility] Work Phone: [phone] Laboratory - Hematology and Cell countson 06-30-2022 Erythrocyte distribution width (RBC) [Entitic vol] 39.8 fL 35.1-43.9 [facility] Work Phone: [phone] Erythrocyte distribution width (RBC) [Ratio] 11.9 % 11.6-14.6 [facility] Work Phone: [phone] Immature granulocytes/100 WBC (Bld) 0.900 % 0.0-0.9 [facility] Work Phone: [phone] Comment on above: IG% - Immature Granu locytes (promyelocytes, myelocytes and metamyelocytes) > 1% indicates that a LEFT SHIFT is Present. MCH (RBC) [Entitic mass] 31.0 pg 27.0-32.0 [facility] Work Phone: [phone] Nucleated RBC/100 WBC (Bld) [Ratio] 0 % 0-5 [facility] Work Phone: [phone] MCHC Auto (RBC) [Mass/Vol]on 06-30-2022 MCHC (RBC) [Mass/Vol] 33.7 g/dL 32-36 [facility] Work Phone: [phone] No Panel Informationon 06-30 Estimated GFR (MDRD) Amer 130 mL/min >60 [facility] Work Phone: [phone] Comment on above: GFR Calc Estimated GFR (MDRD) Non-Af Amer 107 mL/min >60 [facility] Work Phone: Comment on above: Non- GFR Calc Platelets bldon 06-30-2022 Platelets (Bld) [#/Vol] 387 10*3/uL 150-450 [facility] Work Phone: Serum or plasma albumin hilton urement (mass/volume)on 06-30-2022 Albumin [Mass/Vol] 3.7 g/dL 3.2-5.0 [facility] Work Phone: Serum or plasma creatinine m easurement (mass/volume)on 06-30-2022 Creatinine [Mass/Vol] 0.64 mg/dL 0.55-1.02 [facility] Work Phone: Comment on above: The validity of the calculated GFR & GFRAA in patients over 70 years has not been determined. Clinical correlation is essential. Thin prep Papanicolaou smear with manual screeningon 06-30-2022 Thin prep Papanicolaou smear with manual screening 10 U/L 15-37 [facility] Work Phone: Basophil percentageon 2021 Chloride [Moles/Vol] 101 mmol/L 98-107 [facility] Work Phone: Cholesterol [Mass/Vol] 157 mg/dL <200 [facility] Work Phone: Comment on above: <200 mg/dL Desirable 200-240 mg/dL Borderline >240 mg/dL High Risk Glucose [Mass/Vol] 161 mg/dL 74-106 [facility] Work Phone: Comment on above: Fasting Glucose resu lt greater than or equal to 126 mg/dL suggests DIABETES MELLITUS per A.D.A. criteria. Potassium [Moles/Vol] 3.6 mmol/L 3.5-5.1 [facility] Work Phone: Sodium [Moles/Vol] 138 mmol/L 136-145 [facility] Work Phone: [phone] Triglyceride [Mass/Vol] 261 mg/dL <199 [facility] Work Phone: Comment on above: The drugs N-Acetylcy steine and Metamizole may falsely depress this assay.Serum Triglycerides Reference Interval Normal <150 mg/dL Borderline high 150 - 199 mg/dL High 200 - 499 mg/dL Very High > or = 500 mg/dL Laboratory - Chemistry and C hemistry - challengeon 05-03-2022 ALT [Catalytic activity/Vol] 21 U/L 13-56 [facility] Work Phone: CO2 [Moles/Vol] 29.0 mmol/L 21.0-32.0 [facility] Work Phone: Urea nitrogen/Creatinine [Mass ratio] 17.6 mg/mg 10-20 [facility] Work Phone: No Panel Informationon 05-03 Estimated GFR (MDRD) Amer 148 mL/min >60 [facility] Work Phone: Comment on above: GFR Calc Estimated GFR (MDRD) Non-Af Amer 123 mL/min >60 [facility] Work Phone: Comment on above: Non- GFR Calc Urine Microalbumin/Creatinine Ratio 24.0 mg/g CRE <30 [facility] Work Phone: Serum or plasma calcium hilton urement (mass/volume)on 05-03-2022 Calcium [Mass/Vol] 8.9 mg/dL 8.5-10.1 [facility] Work Phone: Serum or plasma cholesterol in HDL measurement (mass/volume)on 05-03-2022 Cholesterol in HDL [Mass/Vol] 39 mg/dL >40 [facility] Work Phone: Comment on above: The drugs N-Acetylcy steine and Metamizole may falsely depress this assay. Reference Range HDL <40 mg/dL Low HDL Cholesterol HDL >or= 60 mg/dL High HDL Cholesterol Serum or plasma cholesterol in VLDL measurement (mass/volume)on 05-03-2022 Cholesterol in VLDL [Mass/Vol] 52 mg/dL 5-40 [facility] Work Phone: Serum or plasma creatinine m easurement (mass/volume)on 05-03-2022 Creatinine [Mass/Vol] 0.57 mg/dL 0.55-1.02 [facility] Work Phone: Comment on above: The validity of the calculated GFR & GFRAA in patients over 70 years has not been determined. Clinical correlation is essential. Serum or plasma low density lipoprotein (LDL) cholesterol measurement (mass/volume)on 05-03-2022 Cholesterol in LDL [Mass/Vol] 66 mg/dL 0-130 [facility] Work Phone: Serum or plasma urea nitroge n measurement (mass/volume)on 05-03-2022 Urea nitrogen [Mass/Vol] 10 mg/dL 7-18 [facility] Work Phone: Thin prep Papanicolaou smear with manual screeningon 05-03-2022 Thin prep Papanicolaou smear with manual screening 11 U/L 15-37 [facility] Work Phone: Thin prep Papanicolaou smear with manual screening 8 5-15 [facility] Work Phone: Thin prep Papanicolaou smear with manual screening 29.0 mg/L NO RANGE EST. [facility] Work Phone: Urine creatinine measurement (mass/volume)on 05-03-2022 Creatinine (U) [Mass/Vol] 121.00 mg/dL NO RANGE EST. [facility] Work Phone: Whole blood hemoglobin A1c/t otal hemoglobin ratio (mass fraction)on 05-03-2022 HbA1c (Bld) [Mass fraction] 6.7 % 3.8-5.6 [facility] Work Phone: Comment on above: Normal < 5.7 % Predi abetic 5.7 - 6.4 % Diabetic >or= 6.5 % Please note range changes. No Panel Informationon 04-13 POC SARS CoV-2 Antigen Positive [facility] Work Phone: Absolute lymphocyte counton 04-01-2022 Lymphocytes Auto (Unsp spec) [#/Vol] 2.54 10*3/uL 0.83-4.51 [facility] Work Phone: Atypical perinuclear antineu trophil cytoplasmic antibodies measurementon 04-01-2022 Neutrophil cytoplasmic Ab.perinuclear.atypical IF (S) [Titer] <1:20 titer Neg:<1:20 [facility] Work Phone: Comment on above: The atypical pANCA p attern has been observed in asignificant percentage of patients with ulcerative colitis,primary sclerosing cholangitis and autoimmune hepatitis. Basophil percentageon 2021 Basophils/100 WBC (Bld) 0.5 % 0-1 [facility] Work Phone: Bilirubin [Mass/Vol] 0.40 mg/dL 0.20-1.00 [facility]: Comment on above: For patients on eltr ombopag therapy, use of Dimension [employer] TBIL is not recommended. Eosinophils/100 WBC (Bld) 0.7 % 0-5 [facility] Work Phone: Neutrophils (Bld) [#/Vol] 6.5 10*3/uL 2.0-7.7 [facility] Work Phone: Neutrophils/100 WBC (Bld) 66.4 % 47-70 [facility] Work Phone: Protein [Mass/Vol] 8.2 g/dL 6.4-8.2 [facility] Work Phone: WBC (Bld) [#/Vol] 9.8 10*3/uL 4.4-11.0 [facility] Work Phone: Blood erythrocytes count (nu mber/volume)on 04-01-2022 RBC (Bld) [#/Vol] 5.14 10*6/uL 4.2-5.4 [facility] Work Phone: Blood hemoglobin measurement (mass/volume)on 04-01-2022 Hemoglobin (Bld) [Mass/Vol] 15.9 g/dL 12.0-15.0 [facility] Work Phone: Blood lymphocytes/100 leukoc yteson 04-01-2022 Lymphocytes/100 WBC (Bld) 25.9 % 19-41 [facility] Work Phone: Blood monocytes/100 leukocyt eson 04-01-2022 Monocytes/100 WBC (Bld) 5.9 % 0-10 [facility] Work Phone: Blood platelet mean volumeon 04-01-2022 Platelet mean volume (Bld) [Entitic vol] 9.5 fL 6.2-12.0 [facility] Work Phone: Determination of erythrocyte mean corpuscular volume (MCV)on 04-01-2022 MCV (RBC) [Entitic vol] 93.4 fL 81-99 [facility] Work Phone: Direct bilirubinon Bilirubin.direct [Mass/Vol] 0.08 mg/dL 0.00-0.30 [facility] Work Phone: Hematocrit Auto (Bld) [Volum e fraction]on 04-01-2022 Hematocrit (Bld) [Volume fraction] 48.0 % 37-47 [facility] Work Phone: Laboratory - Chemistry and C hemistry - challengeon 04-01-2022 ALP [Catalytic activity/Vol] 68 U/L 45-117 [facility] Work Phone: ALT [Catalytic activity/Vol] 27 U/L 13-56 [facility] Work Phone: [phone] Globulin (S) [Mass/Vol] 4.0 g/dL 2.2-4.2 [facility] Work Phone: Laboratory - Hematology and Cell countson 04-01-2022 Erythrocyte distribution width (RBC) [Entitic vol] 39.8 fL 35.1-43.9 [facility] Work Phone: Erythrocyte distribution width (RBC) [Ratio] 11.7 % 11.6-14.6 [facility] Work Phone: Immature granulocytes/100 WBC (Bld) 0.600 % 0.0-0.9 [facility] Work Phone: Comment on above: IG% - Immature Granu locytes (promyelocytes, myelocytes and metamyelocytes) > 1% indicates that a LEFT SHIFT is Present. MCH (RBC) [Entitic mass] 30.9 pg 27.0-32.0 [facility] Work Phone: Nucleated RBC/100 WBC (Bld) [Ratio] 0 % 0-5 [facility] Work Phone: MCHC Auto (RBC) [Mass/Vol]on 04-01-2022 MCHC (RBC) [Mass/Vol] 33.1 g/dL 32-36 [facility] Work Phone: Platelets bldon 04-01-2022 Platelets (Bld) [#/Vol] 455 10*3/uL 150-450 [facility] Work Phone: Serum classic neutrophil cyt oplasmic antibody assay (units/volume)on 04-01-2022 Neutrophil cytoplasmic Ab.classic Qn (S) <1:20 titer Neg:<1:20 [facility] Work Phone: Serum or plasma C reactive p rotein measurement (mass/volume)on 04-01-2022 CRP [Mass/Vol] 7.89 mg/L 0.0-3.0 [facility] Work Phone: Comment on above: C-Reactive Protein ( CRP) provides useful information for thediagnosis, therapy and monitoring of inflammatory processesand associated diseases. For the evaluation of Relative Riskfor Cardiovascular Disease, a High Sensitivity CRP (HSCRP)should be ordered. Serum or plasma actin IgG an tibody assay (units/volume)on 04-01-2022 Actin IgG Qn 3 Units 0-19 [facility] Work Phone: Comment on above: Negative 0 - 19 Weak positive 20 - 30 Moderate to strong positive >30 Actin Antibodies are found in 52-85% of patients with autoimmune hepatitis or chronic active hepatitis and in 22% of patients with primary biliary cirrhosis.Performed at: [address] [id number] Director: Tacho Redmond PhD, Phone: [phone] Serum or plasma albumin hilton urement (mass/volume)on 04-01-2022 Albumin [Mass/Vol] 4.2 g/dL 3.2-5.0 [facility] Work Phone: Serum perinuclear neutrophil cytoplasmic antibody titer by immunofluorescenceon 04-01-2022 Neutrophil cytoplasmic Ab.perinuclear IF (S) [Titer] <1:20 titer Neg:<1:20 [facility] Work Phone: Comment on above: The presence of posi tive fluorescence exhibiting P-ANCA orC-ANCA patterns alone is not specific for the diagnosis ofWegener's Granulomatosis (WG) or microscopic polyangiitis.Decisions about treatment should not be based solely onANCA IFA results. The International ANCA Group Consensusrecommends follow up testing of positive sera with both NY-3 and MPO-ANCA enzyme immunoassays. As many as 5% serumsamples are positive only by EIA. Ref. AM J Clin Fafxhu0160;111:507-513. Thin prep Papanicolaou smear with manual screeningon 04-01-2022 Thin prep Papanicolaou smear with manual screening 20 U/L 15-37 [facility] Work Phone: Basophil percentageon 2021 Bilirubin [Mass/Vol] 0.30 mg/dL 0.20-1.00 [facility] Work Phone: Comment on above: For patients on eltr ombopag therapy, use of Dimension Merrill TBIL is not recommended. Chloride [Moles/Vol] 102 mmol/L 98-107 [facility] Work Phone: Glucose [Mass/Vol] 189 mg/dL 74-106 [facility] Work Phone: Comment on above: Fasting Glucose resu lt greater than or equal to 126 mg/dL suggests DIABETES MELLITUS per A.D.A. criteria. Potassium [Moles/Vol] 3.6 mmol/L 3.5-5.1 [facility] Work Phone: Protein [Mass/Vol] 7.5 g/dL 6.4-8.2 [facility] Work Phone: Sodium [Moles/Vol] 140 mmol/L 136-145 [facility] Work Phone: Laboratory - Chemistry and C hemistry - challengeon 03-21-2022 ALP [Catalytic activity/Vol] 75 U/L 45-117 [facility] Work Phone: ALT [Catalytic activity/Vol] 26 U/L 13-56 [facility] Work Phone: CO2 [Moles/Vol] 28.0 mmol/L 21.0-32.0 [facility] Work Phone: Globulin (S) [Mass/Vol] 3.8 g/dL 2.2-4.2 [facility] Work Phone: Urea nitrogen/Creatinine [Mass ratio] 17.4 mg/mg 10-20 [facility] Work Phone: No Panel Informationon 03-21 Estimated GFR (MDRD) Amer 108 mL/min >60 [facility] Work Phone: Comment on above: GFR Calc Estimated GFR (MDRD) Non-Af Amer 89 mL/min >60 [facility] Work Phone: Comment on above: Non- GFR Calc Serum or plasma albumin hilton urement (mass/volume)on 03-21-2022 Albumin [Mass/Vol] 3.7 g/dL 3.2-5.0 [facility] Work Phone: Serum or plasma albumin/glob ulin mass ratioon 03-21-2022 Albumin/Globulin [Mass ratio] 1.0 {ratio} 0.9-2.4 [facility] Work Phone: [phone] Serum or plasma calcium hilton urement (mass/volume)on 03-21-2022 Calcium [Mass/Vol] 9.5 mg/dL 8.5-10.1 [facility] Work Phone: Serum or plasma creatinine m easurement (mass/volume)on 03-21-2022 Creatinine [Mass/Vol] 0.75 mg/dL 0.55-1.02 [facility] Work Phone: Comment on above: The validity of the calculated GFR & GFRAA in patients over 70 years has not been determined. Clinical correlation is essential. Serum or plasma urea nitroge n measurement (mass/volume)on 03-21-2022 Urea nitrogen [Mass/Vol] 13 mg/dL 7-18 [facility] Work Phone: Thin prep Papanicolaou smear with manual screeningon 03-21-2022 Thin prep Papanicolaou smear with manual screening 16 U/L 15-37 [facility] Work Phone: Thin prep Papanicolaou smear with manual screening 10 5-15 [facility] Work Phone: Vital Signs Date Time Vital Sign Value Performing Clinician Faci lity 02-13-2023 14:14-0400 Body weight 131.09 kg Sadie Ramos MD Work Phone: [facility] 02-13-2023 14:14-0400 Diastolic blood pressure 71 mm[Hg] Sadie Ramos MD Work Phone: [facility] 02-13-2023 14:14-0400 Heart rate 77 /min Sadie Ramos MD Work Phone: [facility] 02-13-2023 14:14-0400 Systolic blood pressure 126 mm[Hg] Sadie Ramos MD Work Phone: [facility] 07-10-2022 16:02-0400 Body height 180.[address] Rogers Bellamy Work Phone: [facility] Work Phone: 07-10-2022 16:02-0400 Body mass index (BMI) [Ratio] 38.7 kg/m2 Dr. Rogers Bellamy Work Phone: [facility] Work Phone: 07-10-2022 16:02-0400 Body temperature 98 [degF] Dr. Rogers Bellamy Work Phone: [facility] Work Phone: 07-10-2022 16:02-0400 Body weight 126.[address] Rogers Bellamy Work Phone: [facility] Work Phone: 07-10-2022 16:02-0400 Diastolic blood pressure 82 mm[Hg] Dr. Rogers Bellamy Work Phone: [facility] Work Phone: 07-10-2022 16:02-0400 Heart rate 98 /min Dr. Rogers Bellamy Work Phone: [facility] Work Phone: 07-10-2022 16:02-0400 Respiratory rate 16 /min Dr. Rogers Bellamy Work Phone: [facility] Work Phone: 07-10-2022 16:02-0400 SaO2% (BldA) [Mass fraction] 98 % Dr. Rogers Bellamy Work Phone: [facility] Work Phone: 07-10-2022 16:02-0400 Systolic blood pressure 132 mm[Hg] Dr. Rogers Bellamy Work Phone: [facility] Work Phone: 04-13-2022 13:42-0400 Body temperature 95.2 [degF] Dr. Rogers Bellamy Work Phone: [facility] Work Phone: 04-13-2022 13:42-0400 Diastolic blood pressure 80 mm[Hg] Dr. Rogers Bellamy Work Phone: [facility] Work Phone: 04-13-2022 13:42-0400 Heart rate 88 /min Dr. Rogers Bellamy Work Phone: [facility] Work Phone: 04-13-2022 13:42-0400 Respiratory rate 16 /min Dr. Rogers Bellamy Work Phone: [facility] Work Phone: 04-13-2022 13:42-0400 SaO2% (BldA) [Mass fraction] 97 % Dr. Rogers Bellamy Work Phone: [facility] Work Phone: 04-13-2022 13:42-0400 Systolic blood pressure 140 mm[Hg] Dr. Rogers Bellamy Work Phone: [facility] Work Phone: 03-05-2022 16:55-0400 Body height 180.[address] Rogers Bellamy Work Phone: [facility] Work Phone: 03-05-2022 16:55-0400 Body mass index (BMI) [Ratio] 39.7 kg/m2 Dr. Rogers Bellamy Work Phone: [facility] Work Phone: 03-05-2022 16:55-0400 Body temperature 97.9 [degF] Dr. Rogers Bellamy Work Phone: [facility] Work Phone: 03-05-2022 16:55-0400 Body weight 129.[address] Rogers Bellamy Work Phone: [facility] Work Phone: 03-05-2022 16:55-0400 Diastolic blood pressure 86 mm[Hg] Dr. Rogers Bellamy Work Phone: [facility] Work Phone: 03-05-2022 16:55-0400 Heart rate 80 /min Dr. Rogers Bellamy Work Phone: [facility] Work Phone: 03-05-2022 16:55-0400 Respiratory rate 18 /min Dr. Rogers Bellamy Work Phone: [facility] Work Phone: 03-05-2022 16:55-0400 SaO2% (BldA) [Mass fraction] 98 % Dr. Rogers Bellamy Work Phone: [facility] Work Phone: 03-05-2022 16:55-0400 Systolic blood pressure 128 mm[Hg] Dr. Rogers Bellamy Work Phone: [facility] Work Phone: 11-27-2021 17:10-0400 Body mass index (BMI) [Ratio] 41.7 kg/m2 Dr. Rogers Bellamy Work Phone: [facility] Work Phone: 11-27-2021 17:10-0400 Body temperature 98.2 [degF] Dr. Rogers Bellamy Work Phone: [facility] Work Phone: 11-27-2021 17:10-0400 Body weight 135.[address] Rogers Bellamy Work Phone: [facility] Work Phone: 11-27-2021 17:10-0400 Diastolic blood pressure 80 mm[Hg] Dr. Rogers Bellamy Work Phone: [facility] Work Phone: 11-27-2021 17:10-0400 Heart rate 92 /min Dr. Rogers Bellamy Work Phone: [facility] Work Phone: 11-27-2021 17:10-0400 Respiratory rate 14 /min Dr. Rogers Bellamy Work Phone: [facility] Work Phone: 11-27-2021 17:10-0400 SaO2% (BldA) [Mass fraction] 99 % Dr. Rogers Bellamy Work Phone: [facility] Work Phone: 11-27-2021 17:10-0400 Systolic blood pressure 124 mm[Hg] Dr. Rogers Bellamy Work Phone: [facility] Work Phone: Encounters Encounter Date Encounter Type Care Provider Facility Start: 08-11-2025 ambulatory Lyndseyringgoldismael Bellamy Facili ty:[facility] Start: 07-01-2025 End: 07-01-2025 [facility] Д[facility]ит[facility]naune Facility:[facility] Start: 06-20-2025 End: 06-20-2025 ambulatory Lyndseypayton Choenaune Facility:[facility] Start: 06-02-2025 End: 06-02-2025 ambulatory Marino Trotter Facility:[facility] Start: 05-22-2025 End: 05-22-2025 ambulatory Velmabe Sarah Bethe Facility:[facility] Start: 05-13-2025 ambulatory Efjarret Choenaune Facili ty:[facility] Start: 05-13-2025 End: 05-13-2025 ambulatory April Schmidt Facility:[facility] Start: 04-17-2025 End: 04-17-2025 [facility] Start: 04-12-2025 Encounter for gynecological examination (general) (routine) without abnormal findings Beatrice Martin [facility] Start: 04-12-2025 End: 04-12-2025 [facility] Start: 04-12-2025 End: 04-12-2025 [facility] Start: 03-14-2025 End: 04-07-2025 ambulatory Anna Huang Facility:[facility] Start: 02-27-2025 End: 02-27-2025 [facility] Start: 02-23-2025 End: 03-13-2025 ambulatory Anna DiLauro Facility:[facility] Start: 02-15-2025 End: 02-17-2025 ambulatory Anna DiLauro Facility:[facility] Start: 02-13-2025 End: 02-13-2025 ambulatory Maciel L Seese Facility:[facility] Start: 01-23-2025 End: 01-23-2025 ambulatory Anna DiLauro Facility:[facility] Start: 01-18-2025 End: 01-18-2025 ambulatory Efewongbe Oleghe Facility:[facility] Start: 01-16-2025 End: 02-11-2025 ambulatory Anna DiLauro Facility:[facility] Start: 12-05-2024 End: 12-05-2024 ambulatory Marino Trotter Facility:[facility] Start: 12-05-2024 End: 12-05-2024 ambulatory Maciel Alcaraz Facility:[facility] Start: 12-03-2024 End: 12-03-2024 ambulatory SIMI SAHU Facility:[facility] Start: 11-25-2024 End: 11-25-2024 ambulatory Fernando BENTON Facility:[facility] Start: 10-04-2024 Encounter for other preprocedural examination Marino Trotter [facility] Start: 09-12-2024 End: 09-12-2024 ambulatory Efewongbe Oleghe Facility:[facility] Start: 09-12-2024 End: 09-12-2024 ambulatory Efewongbe Oleghe Facility:[facility] Start: 09-09-2024 End: 09-09-2024 ambulatory Efewongbe Oleghe Facility:[facility] Start: 09-05-2024 End: 09-05-2024 ambulatory Efewongbe Oleghe Facility:[facility] Start: 08-27-2024 End: 08-27-2024 ambulatory Efewongbe Oleghe Facility:[facility] Start: 07-28-2024 End: 07-28-2024 ambulatory Efewongbe Oleghe Facility:[facility] Start: 06-26-2023 End: 06-26-2023 ambulatory FROILAN HENAO Facility:[facility] Start: 05-02-2023 End: 05-02-2023 ambulatory SADIE RAMOS Facility:[facility] Start: 04-13-2023 End: 04-13-2023 ambulatory Tad Andersen PhD Work Phone: Neurology Comment on above: Neuropsychological e valuation Start: 04-13-2023 E-mail encounter luigi holden caregiver Tad Andersen PhD Work Phone: [facility] Start: 04-13-2023 End: 04-13-2023 Patient encounter procedure Tad Andersen PhD Work Phone: Neuropyschology Comment on above: Cognitive disorder ( Primary Dx); Migraine aura without headache; ELVIS (obstructive sleep apnea) Start: 02-16-2023 Telephone encounter Sadie Ramos MD Work Phone: [facility] Comment on above: Appointment ([facility] for patient to call so we can get her scheduled for a report visit with Dr Ramos ) Start: 02-13-2023 End: 02-13-2023 ambulatory SADIE RAMOS Facility:[facility] Start: 02-13-2023 End: 02-13-2023 ambulatory SADIE RAMOS Facility:[facility] Start: 02-13-2023 End: 02-13-2023 Patient encounter [...] holden caregiver Froilan Henao DO Work Phone: [facility] Start: 08-22-2022 End: 08-22-2022 Subsequent hospital visit by physician Mri Radio [facility] (I-Stat/1.5t) Work Phone: Radiology Comment on above: Cognitive impairment , mild, so stated [G31.84] Start: 08-20-2022 End: 08-20-2022 Telemedicine consultation with patient Froilan Henao DO Work Phone: [facility] Start: 08-20-2022 End: 08-20-2022 ambulatory Froilan Henao [...] Dr. Rogers Bellamy Work Phone: [facility] Internal Medicine Start: 06-30-2022 End: 06-30-[address] Rogers Bellamy Work Phone: [facility] Gastroenterology Start: 05-03-2022 End: 05-03-[address] Rogers Bellamy Work Phone: [facility] Work Phone: Start: 05-03-2022 End: 05-03-[address] Rogers Bellamy Work Phone: [facility] Start: 04-23-2022 End: 04-23-[address] Rogers Bellamy Work Phone: [facility], [facility] Start: 04-13-2022 End: 04-13-[address] Rogers Bellamy Work Phone: [facility] Start: 04-01-2022 End: 04-01-[address] Rogers Bellamy Work Phone: [facility] Start: 03-21-2022 End: 03-21-[address] Rogers Bellamy Work Phone: [facility] Start: 03-05-2022 End: 03-05-[address] Rogers Bellamy Work Phone: [facility] Internal Medicine Start: 01-14-2022 Telephone encounter Froilan [...] patient Froilan P Henao DO Work Phone: [facility] Start: 12-30-2021 End: 12-30-[address] Rogers Bellamy Work Phone: [facility] Gastroenter[facility] Start: 11-27-2021 End: 11-27-[address] Rogers Bellamy Work Phone: [facility] Internal Medicine Procedures Date Procedure Procedure [...] Detail Author Start: 03-15-2024 Urine microalbumin profile [facility] Start: 02-14-2024 BP CONTROLLED (<130/80) BP CONTROLLE D (<130/80) [facility] Start: 05-15-2023 Covid-19 Vaccine () Covid-19 Vaccine () [facility] Start: 05-15-2023 Influenza vaccination C [facility] Start: 02-13-2023 End: 04-15-2023 Cobalamin (Vitamin B12) [Mass/volume] in Serum or Plasma [facility] Work Phone: Comment on above: Expected: 02/13/2023 , Expires: 04/15/2023 Start: 01-13-2023 Adult depression screening assessment DEPRESSION SCREENING [facility] Start: 09-14-2022 DEPRESSION ASSESSMENT DEPRESSION ASS ESSMENT [facility] Start: 2022 COLOGUARD (FIT-DNA) COLOGUARD (FIT-D NA) [facility] Start: 2022 Colonoscopy COLONOSCOPY [facility] Start: 2022 COLORECTAL CANCER SCREENING COLORECTAL CANCER SCREENING [facility] Start: [address] COLONOGRAPHY [facility] Start: 2022 DIABETES SCREEN DIABETES SCREEN [facility] Start: 2022 Diabetes Screening Diabetes Screenin g [facility] Start: 2022 FECAL OCCULT BLOOD FECAL OCCULT BLOO D [facility] Start: 2022 Lipid 1996 panel - S eric or Plasma Lipid Screening [facility] Start: 2022 LIPID SCREEN LIPID SCREEN [facility] Start: 2022 SIGMOIDOSCOPY SIGMOIDOSCOPY [facility] Start: 05-22-2022 COVID-19 VACCINE (5 - Booster for Moderna series) COVID-19 VACCINE (5 - Booster for Moderna series) [facility] Start: 05-22-2022 COVID-19 VACCINE (5 - Moderna series) COVID-19 VACCINE (5 - Moderna series) [facility] Start: 03-05-2022 Patient referral [facility] Work Phone: Start: 09-14-2021 DEPRESSION ASSESSMENT DEPRESSION ASS ESSMENT [facility] Start: 03-10-2018 HPV TESTING HPV TESTING [facility] Start: 03-10-2018 PAP TESTING PAP TESTING [facility] Start: 2017 Mammography [facility] Start: 1995 ANNUAL PCP TEAM HL7 INTERFACE DEVELOPER CARLYN DISEASE VISIT ANNUAL PCP TEAM CHRONIC DISEASE VISIT [facility] Start: 1995 BP CONTROLLED (<130/80) BP CONTROLLE D (<130/80) [facility] Start: 1995 HEPATITIS C SCREENING HEPATITIS C SC REENING [facility] Start: 1995 HIV SCREENING HIV SCREENING [facility] Start: 1977 HEPATITIS B (1 of 3 - 3-dose series) HEPATITIS B (1 of 3 - 3-dose series) [facility] Start: 1977 Hepatitis B Vaccine (1 of 3 - 3-dose series) Hepatitis B Vaccine (1 of 3 - 3-dose series) [facility] End: 09-19-2023 Mri brain brain stem w/o contrast material MRI BRAIN WO IVCON Radiology Routine Cognitive impairment, mild, so stated Memory impairment 1 Occurrences starting 08/20/2022 until 09/19/2023 [facility] Work Phone: Comment on above: 1 Occurrences starti ng 08/20/2022 until 09/19/2023 Patient referral [facility] Work Phone: [facility] Immunizations Immunization Date Immunization Notes Care Provider Dick eastman 07-10-2022 influenza, seasonal, injectable Dr. Rogers Bellamy Work Phone: [facility] Work Phone: 07-10-2022 influenza virus vaccine, unspecified formulation Mri (I-Stat/1.5t) Work Phone: [facility] 03-15-2014 tetanus toxoid, redu chuyita diphtheria toxoid, and acellular pertussis vaccine, adsorbed Froilan Henao DO Work Phone: [facility] Work Phone: Payers Date Payer Category Payer Unknown [id number] 2025 Unknown S 2024 Unknown [id number] 2024 Unknown [id number] 2024 Self-pay [id number] 2021 Unknown [employer]M BLUE ACCE SS PPO [id number] 2021-Present [phone] [address] [place] [address] PPO [id number] 2021 Unknown [id number] 2021 Private Health Insurance [facility] CHOICE PLUS [id number] 2021-Present [phone] [address] [place] [address] O [id number]. [id number] 2019 Unknown [id number]. [id number] 2019 Unknown [id number]. 1.13.159.2. [id number] 2011 Private Health Insurance [id number] Private Health Insurance [id number] Unknown [facility] [id number] Unknown [id number] 2.16.840.1.322803.3.579.2. 462 Unknown [id number] 2.16.840.1.146861.3.579.2. 462 Unknown [id number] 2.16.840.1.367196.3.579.2. 462 Unknown [id number] 2.16.840.1.630142.3.579.2. 462 Unknown [id number] 2.16.840.1.857773.3.579.2. 462 Unknown [id number] 2.16.840.1.592050.3.579.2. 462 Unknown [id number] 2.16.840.1.026759.3.579.2. 462 Unknown [id number] 2.840.1.728156.3.579.2. 462 Unknown [id number] 2.16.840.1.363265.3.579.2. 462 Unknown [id number] 2.840.1.278821.3.579.2. 462 Unknown [id number] 2.16840.1.409090.3.579.2. 462 Unknown [id number] 2.16840.1.747268.3.579.2. 462 Unknown [id number] 2.16.840.1.759810.3.579.2. 462 Unknown [id number] 2.16840.1.329919.3.579.2. 462 Unknown [id number] 2.16840.1.967676.3.579.2. 462 Unknown [id number] 2.16.840.1.400901.3.579.2. 462 Unknown [id number] 2.16.840.1.219389.3.579.2. 462 Unknown [id number] 2.16.840.1.252054.3.579.2. 462 Unknown [id number] 2.16.840.1.069230.3.579.2. 462 Unknown [id number] 2.16840.1.041596.3.579.2. 462 Unknown [id number] 2.16.840.1.003319.3.579.2. 462 Unknown [id number] 2.16.840.1.279962.3.579.2. 462 Unknown [id number] 2.16.840.1.349310.3.579.2. 462 Unknown [id number] 2.16.840.1.417054.3.579.2. 462 Unknown [id number] 2.16.840.1.850131.3.579.2. 462 Unknown [id number] 2.16.840.1.447912.3.579.2. 462 Unknown [id number] 2.16.840.1.921837.3.579.2. 462 Unknown [id number] 2.16840.1.941437.3.579.2. 462 Unknown [id number] 2.16840.1.330816.3.579.2. 462 Social History Date Type Detail Facility [facility]: [facility] Start: 07-12-2021 End: 04-30-2022 Alcohol intake Current non-drinker of alcohol (finding) [facility] Start: 1975 Sex Assigned At Female [facility] Start: 03-05-2022 End: 07-10-2022 Tobacco smoking status COIS Unknown if ever smoked [facility] Work Phone: Start: 12-19-2011 Tobacco use and exposure Smokeless tobacco non-user [facility] Start: 08-19-2022 End: 02-13-2023 History of Social function [facility] Start: 08-19-2022 End: 02-13-2023 Tobacco use panel [facility] Adult Depression Screening Assessment 0 [facility] Start: 08-01-2021 Gender identity Identifies as female gender (finding) [facility] Start: 08-01-2021 Sexual orientation Heterosexual (fin ding) [facility] Medical Equipment Procedure Code Equipment Code [...] Note Date & Type Note Facility 09-09-2024 [facility] Medical Records Department [address] [place] [address] History Physical Exam 09/09/24 1133 MR#: [id number] Acct: [id number] Name: JOANNE STALLWORTH Rep #: [id number] : 1975 49 From: Marino Trotter DO PCP: Dr. Rogers Bellamy MD Status:[facility] Location: [facility]14-1 HPI - General General Date of Admission: 09/09/24 Date of Service: 09/09/24 Chief Complaint: Screening colon HPI Narrative JOANNE STALLWORTH, is a 49 F who presents today for a screening colonoscopy. 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 She is not having any medical problems at this time. [facility] Medical History Wears glasses Depression Anxiety Injury [...] Flushing Verified 12 (more content not included)... [facility] 06-26-2023 Note HNO ID: [id number] Author: Froilan Henao, DO Service: ? Author [...] due to remote insult/minimal chronic microvascular change. Sheeter Helper: CHAPARRO Transcribe Date/Time: Aug 22 2022 6:26P Dictated by : JO KATHLEEN MD This examination was interpreted and the report reviewed and electronically signed by: JO KATHLEEN MD on Aug 22 2022 6:44PM EST Results-Findings * * *Final Report* * * DATE OF EXAM: Aug 22 2022 4:42PM [facility] 0294 - MRI BRAIN WO IVCON [...] T (more content not included)... [facility] 05-02-2023 Note HNO ID: [id number] Author: Sadie Ramos MD Service: ? Author Type: Physician Type: Progress Notes Filed: 05/02/2023 3:09 PM Note Text: Neurology Return, [facility], virtual Patient's clinic evaluation was scheduled as a virtual visit using Jeer[employer] platform. I have communicated my name and active licensure. The patient's identity and physical location were verified at the time of this visit. Either the patient or their legal entry level account representative has been informed of the risks [...] ho (more content not included)... [facility] 04-13-2023 Note HNO ID: [id number] Author: Tad Andersen, PhD Service: ? 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 This neuropsychological assessment is part of a multidisciplinary evaluation conducted in the [facility]. 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 She reports stress related to management [...] high average. Processing speed on a digit-symbol automation engineer task was average. Speeded color naming was average, and speeded word reading was average. Performance on a sustained attention task showed poor vigilance and inattentiveness. Executive functioning: Mental flexibility and visuomotor set shifting was high average. Verbal response inhibition was extremely low, and the same task with a set switching component was average. Qualitatively, the radio repairer observed the patient to slow down on [...] Visuospati (more content not included)... 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 This neuropsychological assessment is part of a multidisciplinary evaluation conducted in the [facility]. 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 She reports stress related to management [...] high average. Processing speed on a digit-symbol automation engineer task was average. Speeded color naming was average, and speeded word reading was average. Performance on a sustained attention task showed poor vigilance and inattentiveness. Executive functioning: Mental flexibility and visuomotor set shifting was high average. Verbal response inhibition was extremely low, and the same task with a set switching component was average. Qualitatively, the radio repairer observed the patient to slow down on [...] or workers' compensation evaluation. Tad Andersen, Ph.D., [facility]- Board Certified in Clinical Neuropsychology Neurobehavioral status exam/clinical interview by neuropsychologist = 1 hour Neuropsychological evaluation services by neuropsychologist = 2 hours Neuropsychological test administration/scoring by radio repairer = 3 hours documented in this encounter [facility] 02-16-2023 Miscellaneous Notes Summary: appointments Lvm for patient to call so we can get her scheduled for a report visit with Dr Ramos documented in this encounter [facility] 02-13-2023 Instructions Sadie Ramos MD - 02/13/2023 5:20 PM EDT Recommend: Sleep behavioral medicine for insomnia management Follow up with her sleep provider to ensure adequate treatment of sleep apnea Optimal behavioral health management for stress, defer to her psychiatrist for potential therapy Neuropsychology testing for cognitive baseline Get B12 level Return after neuropsychology testing Please call [phone] for scheduling documented in this encounter [facility] 02-13-2023 Nurse Note Joanne Stallworth is a 47 year old year old right handed woman Accompanied by: mother. 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 What would you like to accomplish with this visit today? Figure out why my brain feels like a sieve, like a strainer sometime. 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 She did not lose consciousness. Serological [...] problems. Nilson Cognitive Assessment (MoCA) COGNITIVE TESTING: [place] cognitive assessment test version 7.1 was . [...] level Return after neuropsychology testing Please call [phone] for scheduling ADMINISTRATIVE BILLING I spent a total of 60 minutes on the date of the service which included preparing to see the patient, [id number] patient care, completing clinical documentation, obtaining and/or [...] unintentional. cc: Froilan Henao [address] [facility] [id number] documented in this encounter [facility] 02-13-2023 Note HNO ID: [id number] Author: Sadie Ramos MD Service: ? 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 [facility] 10-31-2022 Miscellaneous Notes prior authorization submitted via cover meds Joanne Stallworth Diamond: [id number] - PA Status-Sent to [facility]-Ubrelvy 100MG tablets Form-[facility] Commercial Electronic PA Form (2016 [place]) Patient sent Wallop message on 10/28 asking for status. Prior Authorization for Medications Requested by (ImmusanT, Pharmacy, Patient Call, Fax) : Sxbbm Pharmacy Name: [facility] Phone # : [phone] Name of Medication : Ubrelvy Dose : 100 mg tablets If renewal, auth date expiration: NA Prescribing Provider: Last OV: 08/20/2022 with Henao Insurance Provider : Pan / ALDA Ash Is insurance card scanned in, including Rx info? Yes Rx ID number: [id number] Rx BIN: [id number] Rx PCN: [id number] Rx Grp: [id number] Insurance Phone : CoverMyMeds Diamond: NA E-PA? Yes documented in this encounter [facility] 08-22-2022 History of Present illness Narrative [...] 2022 4:23 PM documented in this encounter [facility] 08-20-2022 History of Present illness Narrative [...] (Maxalt) Sumatriptan (Imitrex, Sumavel) Analgesic Hydrocodone/Acetaminophen (Vicodin, Thomson) Ketorolac (Toradol) Etodolac [facility]ep[facility] ---> Preventive Treatment: -Cymbalta 90 mg daily [...] Dose Reason for Discontinuation Analgesic Hydrocodone/Acetaminophen (Vicodin, Thomson) Ketorolac (Toradol) Etodolac Anti-Convulsant Gabapentin (Neurontin) Zonisamide [...] Motrin) Naproxen sodium (Aleve) Froilan Henao DO [facility] [place] Department [facility] - Headache and Chronic Pain Medicine [address] [place] [address] Level of service: Est level 3 (20-29 min). Time spent 25 min on the day of service, which included preparing to see the patient, [id number] patient care, completing clinical documentation, obtaining and/or reviewing separately obtained history, counseling and educating the patient/family/caregiver, and ordering medications, tests, or procedures. Medical Decision Making: Medical Decision Making Level: 1 - N/A cc: Tico Walker MD [address] [place], [place] [id number] documented in this encounter [facility] 01-31-2022 Miscellaneous Notes Received approval via fax from [facility] for Nurtec. Effective 01/30/2022 - 01/30/2023 Reference # [id number] Uploaded to chart via OnBase. Completed PA over covermymds: If [employer] has not replied to your request within 24 hours please contact [employer] at [phone]. Joanne julio Stallworth (Diamond: [id number]) Rx #: [id number] Nurtec 75MG dispersible tablets Form [facility] Commercial Electronic PA Form (2016 [facility]) Wait for Determination, Cira Prescott Images from the original note were not included. Received faxed notification from [facility] stating PA needed on Nurtec 75mg. documented in this encounter [facility] 01-14-2022 History of Past i llness Narrative Problem Noted Date Diagnosed Date Resolved Date Chronic tension-type headache, intractable 01/14/2022 06/26/2023 Chronic daily headache 01/14/202206/26 Migraine without aura 01/16/20142014 documented as of this encounter (statuses as of 07/19/2023) [facility] History of Present illness Narrative* Froilan [...] (Maxalt) Sumatriptan (Imitrex, Sumavel) Analgesic Hydrocodone/Acetaminophen (Vicodin, Thomson) Ketorolac (Toradol) Etodolac ---> Preventive Treatment: -Cymbalta [...] Dose Reason for Discontinuation Analgesic Hydrocodone/Acetaminophen (Vicodin, Thomson) Ketorolac (Toradol) Etodolac Anti-Convulsant Gabapentin (Neurontin) Zonisamide (Zonegram) Anti-Depressant and Antipsychotic Duloxetine (Cymbalta) Fluoxetine (Prozac) Mirtazapine (Remeron) Ziprasidone (Geodon) Nebivolol, Olmesartan Anti-Migraine Rizatriptan (Maxalt) Sumatriptan (Imitrex, Sumavel) Blood Pressure Lisinopril (Zestril) Losartan (Cozaar) Metoprolol (Lopressor,Toprol XL) HCTZ, Benicar Sleep Aids Trazodone (Desyrel) Zolpidem (Ambien) Supplements CoQ10 Magnesium Riboflavin Froilan Henao DO [facility] [place] Department of [facility] [address] [place] [address] Level of service: Est level 3 (20-29 min). Time spent 20 min on the day of service, which included preparing to see the patient, [id number] patient care, completing clinical documentation, obtaining and/or reviewing separately obtained history, counseling and educating the patient/family/caregiver and ordering medications, tests, or procedures. Medical Decision Making cc: Tico Walker MD [address] [place] [address] [facility] of Past illness Narrative* Problem Noted Date Resolved Date Migraine without aura 01/16/2014 04/11/2015 documented as of this encounter (statuses as of 01/14/2022) [facility] of Past illness Narrative* Problem Noted Date Resolved Date Migraine without aura 01/16/2014 04/11/2015 documented as of this encounter (statuses as of 01/31/2022) [facility] of [facility] Narrative* Problem Noted Date Resolved Date Migraine without aura 01/16/2014 04/11/2015 documented as of this encounter (statuses as of 08/20/2022) [facility] Narrative* Problem Noted Date Resolved Date Migraine without aura 01/16/2014 04/11/2015 documented as of this encounter (statuses as of 09/03/2022) [facility] Narrative* Problem Noted Date Resolved Date Migraine without aura 01/16/2014 04/11/2015 documented as of this encounter (statuses as of 09/22/2022) [facility] Narrative* Problem Noted Date Resolved Date Migraine without aura 01/16/2014 04/11/2015 documented as of this encounter (statuses as of 10/31/2022) [facility] Narrative* Problem Noted Date Resolved Date Migraine without aura 01/16/2014 04/11/2015 documented as of this encounter (statuses as of 02/14/2023) [facility] Narrative* Problem Noted Date Resolved Date Migraine without aura 01/16/2014 04/11/2015 documented as of this encounter (statuses as of 02/16/2023) [facility] Narrative* Problem Noted Date Diagnosed Date Resolved Date Migraine without aura 01/16/20142014 documented as of this encounter (statuses as of 04/14/2023) [facility] of Past illness Narrative* Problem Noted Date Diagnosed Date Resolved Date Migraine without aura 01/16/20142014 documented as of this encounter (statuses as of 04/14/2023) [facility] Migraine without aura and [...] tension type headache [facility] Diagnosis Onset Date Resolution Status Chronic diarrhea chronic Fatty liver disease, nonalcoholic chronic Hypertension chronic Morbid obesity chronic Type 2 diabetes mellitus [facility] GERD (gastroesophageal reflux disease) acute Chronic diarrhea chronic Fatty liver disease, nonalcoholic chronic Menstrual irregularity acute Hypertension chronic Morbid obesity chronic Type 2 diabetes mellitus [facility] Work Phone: Evaluation note* Diagnosis Onset Date Resolution Status COVID-19 acute Fatty liver disease, nonalcoholic chronic Liver fibrosis chronic Flu vaccine need acute Anxiety and depression chron ic Hypertension chronic Morbid obesity chronic Type 2 diabetes mellitus [facility] Work Phone: Evaluation note* Diagnosis Onset Date Resolution Status Fatty liver disease, nonalcoholic chronic Liver fibrosis chronic Flu vaccine need acute Anxiety and depression chron ic Hypertension chronic Morbid obesity chronic Type 2 diabetes mellitus [facility] Work Phone: Evaluation note* Diagnosis Migraine [...] impairment Memory loss [facility] Diagnosis Abnormal brain MRI- Primary Nonspecific (abnormal) findings on radiological and other examination of skull and head Memory impairment Memory loss Cognitive complaints Other signs and symptoms involving cognition [facility] Memory [facility]- Primary Memory loss Cognitive complaints Other signs and symptoms involving cognition Psychophysiologic insomnia Persistent disorder of initiating or maintaining sleep Stress at work Adverse effects of work environment Obstructive sleep apnea Obstructive sleep apnea (adult) (pediatric) [facility] Diagnosis Cognitive disorder- Primary Unspecified persistent mental disorders due to conditions classified elsewhere Migraine aura without headache Migraine with aura, without mention of intractable migraine without mention of status migrainosus ELVIS (obstructive sleep apnea) Obstructive sleep apnea (adult) (pediatric) [facility] Diagnosis Cognitive impairment, mild, so stated Mild cognitive impairment, so stated Memory impairment Memory loss documented in this encounter [facility] Chief Complaint and Reason for Visit [...] Yes November 27, 2021 5:40pm Power of [employer] 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 Yes November 27 5:40pm Advance Directive Response Recorded Date/ Time Living Will Yes November 27, 2021 4:40pm Power of [employer] Field Technician Yes November 27 4:40pm Reason for Referral Specialty Diagnoses / Procedures Referred By Narcisa villanueva Referred To Contact MR IMAGING Diagnoses Cognitive impairment, mild, so stated Memory impairment Procedures MRI BRAIN WO IVCON MRI BRAIN BRAIN STEM W/O CONTRAST MATERIAL Froilan Henao, DO [address] [place] [address] Mr Imaging Referral ID Status Reason Start Date Expiration Date Visits Requested Visits Authorized [id number] Pending Review Auto-Generat ed Referral 08/20/2022 09/19/2023 1 1 Specialty Diagnoses / Procedures Referred By Narcisa villanueva Referred To Contact Neurology Diagnoses Abnormal brain MRI Memory impairment Cognitive complaints Procedures CONSULT TO NEUROLOGY OFFICE/OUTPATIENT [facility] 60-74 MINUTES Froilan Henao, DO [address] [place] [address] Referral ID Status Reason Start Date Expiration Date Visits Requested Visits Authorized [id number] Authorized PCP Requested Referral 09/21/2022 09/21/2023 1 1 Specialty Diagnoses / Procedures Referred By Contac t Referred To Contact MR IMAGING Diagnoses Cognitive impairment, mild, so stated Memory impairment Procedures MRI BRAIN WO IVCON MRI BRAIN BRAIN STEM W/O CONTRAST MATERIAL Froilan Henao DO [address] [place] [address] [place] [address] Referral ID Status Reason Start Date Expiration Date V isits Requested Visits Authorized [id number] Closed Auto-Generate d Referral 08/21/2022 09/13/2022 1 1 Summary Purpose Additional Source Comments Source Comments (unrecognize d section and content) In the event this informatio n is protected by the Federal Confidentiality of Alcohol and Drug Abuse Patient Records regulations: The Federal rules restrict any use of the information to criminally investigate or prosecute any alcohol or drug abuse patient.[facility] the event this information is protected by the Federal Confidentiality of Alcohol and Drug Abuse Patient Records regulations: The Federal rules restrict any use of the information to criminally investigate or prosecute any alcohol or drug abuse patient.[facility] the event this information is protected by the Federal Confidentiality of Alcohol and Drug Abuse Patient Records regulations: The Federal rules restrict any use of the information to criminally investigate or prosecute any alcohol or drug abuse patient.[facility] the event this information is protected by the Federal Confidentiality of Alcohol and Drug Abuse Patient Records regulations: The Federal rules restrict any use of the information to criminally investigate or prosecute any alcohol or drug abuse patient.[facility] the event this information is protected by the Federal Confidentiality of Alcohol and Drug Abuse Patient Records regulations: The Federal rules restrict any use of the information to criminally investigate or prosecute any alcohol or drug abuse patient.[facility] the event this information is protected by the Federal Confidentiality of Alcohol and Drug Abuse Patient Records regulations: The Federal rules restrict any use of the information to criminally investigate or prosecute any alcohol or drug abuse patient.[facility] the event this information is protected by the Federal Confidentiality of Alcohol and Drug Abuse Patient Records regulations: The Federal rules restrict any use of the information to criminally investigate or prosecute any alcohol or drug abuse patient.[facility] the event this information is protected by the Federal Confidentiality of Alcohol and Drug Abuse Patient Records regulations: The Federal rules restrict any use of the information to criminally investigate or prosecute any alcohol or drug abuse patient.[facility] the event this information is protected by the Federal Confidentiality of Alcohol and Drug Abuse Patient Records regulations: The Federal rules restrict any use of the information to criminally investigate or prosecute any alcohol or drug abuse patient.[facility] the event this information is protected by the Federal Confidentiality of Alcohol and Drug Abuse Patient Records regulations: The Federal rules restrict any use of the information to criminally investigate or prosecute any alcohol or drug abuse patient.[facility] the event this information is protected by the Federal Confidentiality of Alcohol and Drug Abuse Patient Records regulations: The Federal rules restrict any use of the information to criminally investigate or prosecute any alcohol or drug abuse patient.[facility] Reason for Visit (unrecogniz ed section and content) Reason Comments Migraine Reason Comments Insurance Authorization Nurtec 75mg 05/13 Reason Comments Migraine Reason Comments Insurance Authorization Ubrelvy Reason Comments Consult Specialty Diagnoses / Procedures Referred By Contac t Referred To Contact Neurology Diagnoses Abnormal brain MRI Memory impairment Cognitive complaints Procedures CONSULT TO NEUROLOGY OFFICE/OUTPATIENT [facility] 60-74 MINUTES Froilan Henao, DO [address] [id number] Referral ID Status Reason Start Date Expiration Date V isits Requested Visits Authorized [id number] Closed PCP Requested Referral 09/21/2022 09/21/2023 1 [...] BRAIN STEM W/O CONTRAST MATERIAL Froilan Henao, [address] [id number] [facility] [place] [address] Referral ID Status Reason Start Date Expiration Date V isits Requested Visits Authorized [id number] Closed Auto-Generate d Referral 08/21/2022 09/13/2022 1 1 Care Teams (unrecognized sec tion and content) Executive Chairman Relationship Specialty Start Date End Date Tico Walker MD PCP - General Family Practice 12/25/11 Executive Chairman Relationship Specialty Start Date End Date Tico Walker MD PCP - General Family Practice 12/25/11 Executive Chairman Relationship Specialty Start Date End Date Tico Walker MD PCP - General Family Medicine 12/25/11 Executive Chairman Relationship Specialty Start Date End Date Tico Walker MD PCP - General Family Medicine 12/25/11 Executive Chairman Relationship Specialty Start Date End Date Tico Walker MD PCP - General Family Medicine 12/25/11 Executive Chairman Relationship Specialty Start Date End Date Tico Walker MD PCP - General Family Medicine 12/25/11 10/09/22 Goals (unrecognized section and content) Goals may be documented in a n alternate sectionGoals may be documented in an alternate sectionGoals may be documented in an alternate sectionGoals may be documented in an alternate section INFORMATION SOURCE (unrecogn ized section and content) DATE CREATED AUTHOR 02/14/[address] [facility] DATE CREATED AUTHOR AUTHOR'S OSORIOIZ ANTONINOION 07/26/2025 [facility] FOR RECORDS PERTAINING TO PATIENTS WHO [...] BE BASED ON THE PRIMARY CLINICAL RECORDS. [employer] provides no warranty or guarantee of the accuracy or completeness of information in this document.
--- NOTE | 2025-08-11 10:00 | BI_ITS ---
EXAM: SCRN MAMM (CAD)W/ROMERO BILAT DATE: 08/11/2025 CLINICAL HISTORY: F, Age 50 y/o , SCREENING FOR BREAST CANCER TECHNIQUE: Procedure Code: [id number] Modality: MG Procedure: SCRN MAMM (CAD)W/ROMERO BILAT COMPARISON: Prior exam(s) dated 07/28/2024. FINDINGS: TISSUE DENSITY: There are scattered areas of fibroglandular density. Bilateral Breast Mammographic Findings: There are no suspicious masses, suspicious clustered microcalcifications, architectural distortion or secondary signs of malignancy identified in either breast. Benign-appearing round microcalcifications are seen in both breasts. A stable, 2 cm, well-circumscribed, isodense mass in the superior medial, far anterior aspect of the left breast is noted. A radiopaque clip is seen adjacent to the mass. The mass was biopsied and shown to represent a benign process. BI/SCRN MAMM (CAD)W/ROMERO BILAT IMPRESSION: Benign screening mammogram OVERALL FINAL ASSESSMENT BI-RADS 2: BENIGN RECOMMENDATION: Routine annual follow-up in 1 Year Additional Recommendation none A letter with findings and recommendations will be mailed to the patient. Reading Location: [id number]
== END | disposition home or self-care (01) ==
LOC: OPBI 09:42
PROVIDERS: PCP Internal Medicine; Referring Provider Advanced Practice Midwife; Visit Provider Advanced Practice Midwife
DX: Z12.31 Encounter for screening mammogram for malignant neoplasm of breast (principal)
CPT/HCPCS: 77063; 77067